=== PATIENT | male | born 1975 | race Caucasian/White ===

== ENCOUNTER 2016-04-22 12:08 | Inpatient (IN) | payer MEDICARE, MEDICAID ==
[2016-04-22] MEDS ORDERED: methylPREDNISolone Sod Succ 1,000 MG in Sodium Chloride 0.9% 100 ML IV ONE (12:44)
[2016-04-22 12:56] LABS: BASOPHILS PERCENT AUTO 0.5 % (0.2-1.2); EOSINOPHILS PERCENT AUTO 1.2 % (0.0-4.0); HEMATOCRIT 44.3 % (40.0-52.0); HEMOGLOBIN 14.7 g/dL (14.0-18.0); LYMPHOCYTES PERCENT AUTO 9.6 % (25.0-50.0); MEAN CORPUSCULAR HEMOGLOBIN 30.4 pg (26.0-32.0); MEAN CORPUSCULAR HGB CONC 33.2 g/dL (32.0-36.0); MEAN CORPUSCULAR VOLUME 91.7 fL (78.0-93.0); MONOCYTES PERCENT AUTO 4.7 % (2.0-11.0); RDW CV 13.9 % (10.0-15.0); RED BLOOD CELL COUNT 4.83 x10^6/uL (4.5-6.0)
[2016-04-22] MEDS: Sodium Chloride 0.9% 10 ML Syringe FLUSH PRN ×2 (13:01→20:11)
[2016-04-22 13:12] LABS: INR 0.9 (2.0-3.5); PROTHROMBIN TIME 10.1 SEC (10.0-12.8)
[2016-04-22 13:28] LABS: A/G RATIO 1.23; ALBUMIN 3.7 g/dL (3.4-5.0); ALKALINE PHOSPHATASE 60 U/L (46-116); BILIRUBIN TOTAL 0.3 mg/dL (0.2-1.0); CALCIUM 8.8 mg/dL (8.5-10.1); CHLORIDE,CL 105 mmol/L (98-107); CORRECTED CALCIUM 9.04 mg/dL (8.5-10.1); CREATININE 0.9 mg/dL (0.70-1.30); ESTIMATED GFR > 60; GLUCOSE RANDOM 89 mg/dL (74-106)
[2016-04-22 13:30] LABS: CKMB 1.4 ng/mL (0.0-3.6)
[2016-04-22 13:31] LABS: C-REACTIVE PROTEIN < 0.2 mg/dL (<=0.9)
[2016-04-22 14:17] LABS: APPEARANCE,URINE SLIGHTLY CLOUDY (CLEAR); BILIRUBIN,URINE NEGATIVE (NEGATIVE); GLUCOSE,URINE NEGATIVE (NEGATIVE); KETONES,URINE TRACE mg/dL (NEGATIVE); LEUKOCYTE ESTERASE,URINE NEGATIVE (NEGATIVE); NITRITE,URINE NEGATIVE (NEGATIVE); OCCULT BLOOD,URINE NEGATIVE (NEGATIVE); PH,URINE 7.5 (5.0-8.0); PROTEIN,URINE NEGATIVE (NEGATIVE); UROBILINOGEN,URINE 0.2 EU/dL (0.2)
[2016-04-22 14:25] LABS: BACTERIA,URINE NOT SEEN /HPF (NEGATIVE); MUCUS,URINE NOT SEEN /LPF (NEGATIVE); RBC,URINE NOT SEEN /HPF (NOT SEEN); WBC,URINE NOT SEEN /HPF (NOT SEEN)
[2016-04-22] MEDS ORDERED: Acetaminophen 325 MG Tab PO PRN (15:53)
[2016-04-22] MEDS ORDERED: Ibuprofen 200 MG Tab PO PRN (15:53)
--- NOTE | 2016-04-22 16:04 | PCM.HP ---
H&P History of Present Illness - General Date of Service: 04/22/16 Admit Problem/Dx: Admission Diagnosis/Problem Admission Diagnosis/Problem Multiple sclerosis Source of Information: Patient History Limitations: Reports: No limitations - History of Present Illness Initial Comments - Free Text/Narative: Mr. Epps is a 41 yo male with PMH of MS complicated by neurogenic bladder who was brought to the ED by EMS after he was unable to get up off the toilet on his own. I had actually seen him this morning in clinic and started him on Augmentin for sinusitis. He has had >10 days of rhinorrhea and congestion. Then this morning, he started to have some right sided weakness which has been how his MS flares are presenting lately. He also felt unwell and checked his temperature, finding that to be 101.1. He has had no chest pain or shortness of breath. At that time, he felt comfortable returning home. However, after returning home from the clinic, it took him 30 minutes to get up off the toilet after going to the bathroom. As a result, he called EMS and they brought him to the ED. He received a dose of solu-medrol down there and is doing much better in terms of his weakness at this time. He still has the frontal sinus headache and some mild neck pain. He has some shortness of breath from working so hard to get off the toilet but this is now resolved. He has had no recurrence of fever. Onset of Symptoms: Reports: today Duration of Symptoms: Reports: Improving Location: Reports: upper extremity, right Severity: moderate Improves with: Reports: Other (solumedrol given in the ED) Worsens with: Reports: None Associated Symptoms: Reports: fever/chills, malaise - Related Data Allergies/Adverse Reactions: Allergies Allergy/AdvReac Type Severity Reaction Status Date / Time ceftriaxone sodium Allergy Rash Verified 04/22/16 12:19 [From Rocephin] Home Medications: Home Meds Naproxen Sodium [Aleve] 220 mg PO BID 03/16/14 [History] Ascorbate Calcium [Vitamin C] 500 mg PO DAILY 07/16/14 [History] Cholecalciferol (Vitamin D3) [Vitamin D3] 3,000 unit PO DAILY 07/16/14 [History] Cyanocobalamin (Vitamin B12) [Vitamin B12] 1,000 mcg PO DAILY 07/16/14 [History] Sennosides/Docusate Sodium [Stool Softener Tablet] 1 each PO BID 07/16/14 [ History] Fingolimod HCl [Gilenya] 1 tab PO Q2D 11/24/15 [History] Acetaminophen 325 mg PO BID 04/22/16 [History] Amoxicillin/Clavulanate K [Augmentin 875 MG/125 MG] 1 tab BID 04/22/16 [History] Docusate Sodium [Colace] 200 mg PO DAILY 04/22/16 [History] Multivitamin [Multivitamins] 1 each PO DAILY 04/22/16 [History] Oxybutynin Chloride [Ditropan Xl] 15 mg PO DAILY 04/22/16 [History] Vitamin B Complex [B Complex] 1 tab PO DAILY 04/22/16 [History] Past Medical History - Past Health History Medical/Surgical History: Denies Medical/Surgical History HEENT History: Reports: None Cardiovascular History: Reports: None Respiratory History: Reports: None Gastrointestinal History: Reports: None Genitourinary History: Reports: Retention, urinary, Urinary incontinence Musculoskeletal History: Reports: None Neurological History: Reports: MS Psychiatric History: Reports: None Endocrine/Metabolic History: Reports: None Hematologic History: Reports: None Immunologic History: Reports: None Oncologic (Cancer) History: Reports: None Dermatologic History: Reports: None - Infectious Disease History Infectious Disease History: Reports: None - Past Surgical History Neurological Surgical History: Reports: None Social & Family History - Family History Family Medical History: Noncontributory - Tobacco Use Smoking Status *Q: Never Smoker Second Hand Smoke Exposure: No - Caffeine Use Caffeine Use: Reports: None - Alcohol Use Alcohol Use History: No Days Per Week of Alcohol Use: 0 - Recreational Drug Use Recreational Drug Use: No - Living Situation & Occupation Living situation: Reports: alone (Lives alone. Has a girlfriend who lives in [place]. 2 sisters also live relatively close. He is normally independent for ADLs but has assistance with getting groceries, etc.) Occupation: disabled H&P Review of Systems - Review of Systems: Review Of Systems: See Below General: Reports: fever, malaise, fatigue HEENT: Reports: rhinitis, sinus congestion. Denies: sore throat Pulmonary: Reports: no symptoms Cardiovascular: Reports: no symptoms Gastrointestinal: Reports: No symptoms Genitourinary: Reports: no symptoms Musculoskeletal: Reports: no symptoms Skin: Reports: no symptoms Psychiatric: Reports: no symptoms Neurological: Reports: headache, pre-existing deficit, weakness. Denies: trouble speaking Hematologic/Lymphatic: Reports: no symptoms Exam - Exam Exam: See Below - Vital Signs Vital Signs: Last Vital Signs Temp 36.6 C 04/22/16 15:13 Pulse 76 04/22/16 15:13 Resp 16 04/22/16 15:13 BP 156/99 H 04/22/16 15:13 Pulse Ox 100 04/22/16 15:13 Weight: 83.915 kg - Exam General: alert, oriented, cooperative HEENT: Conjunctiva clear, EOMI, Mucosa moist & pink, Pupils equal, Pupils reactive, TMs clear Neck: supple, trachea midline. No: lymphadenopathy, thyromegaly Lungs: Clear to auscultation, Normal respiratory effort Cardiovascular: regular rate, regular rhythm, normal S1, normal S2. No: systolic murmur, diastolic murmur Abdomen: normal bowel sounds, soft, organomegaly. No: distention, tenderness Extremities: normal inspection, normal pulses, edema (trace to above the ankle bilaterally) Skin: warm, dry, intact Neurological: other (patient is now able to move right arm and left arm and leg without issue; has chronic inability to move right leg) Neuro Extensive - Motor, Sensory, Reflexes: CN II-XII intact - Patient Data Result Diagrams: 04/22/16 12:47 04/22/16 12:47 *Q Meaningful Use (ADM) - VTE *Q VTE Criteria *Q: - Stroke *Q Stroke Criteria *Q: - AMI *Q AMI Criteria *Q: - Problem List (1) Multiple sclerosis exacerbation SNOMED Code(s): 197034498 ICD Code: G35 - MULTIPLE SCLEROSIS Status: Acute Priority: Medium Current Visit: No Onset Date: 05/16/15 Problem Details: - Unclear whether this is true MS exacerbation vs. pseudoexacerbation. In clinic felt to be the latter but his drastic improvement with solu-medrol would suggest the former. Unlikely other intracranial cause with improvement with steroids and lack of history of falls. No mass seen on MRI 02/2016. - Will treat with another 2 days of solu-medrol 500 mg IV. - If his symptoms are back to baseline, he likely will not require a taper of steroids upon homegoing. (2) Sinusitis, acute frontal SNOMED Code(s): 55785181 ICD Code: J01.10 - ACUTE FRONTAL SINUSITIS, UNSPECIFIED Status: Acute Current Visit: Yes Problem Details: - Likely bacterial at this point given symptoms present for >10 days with worsening and fever only over the past 24 hours. - Patient does not require IV antibiotics for this; reason for admission is MS exacerbation, not sinusitis. - Will continue Augmentin BID. Qualifiers: Recurrence: not specified as recurrent Qualified Code(s): J01.10 - Acute frontal sinusitis, unspecified (3) Neurogenic bladder SNOMED Code(s): 729563746 ICD Code: N31.9 - NEUROMUSCULAR DYSFUNCTION OF BLADDER, UNSPECIFIED Status : Chronic Current Visit: Yes Problem Details: - Patient has been on oxybutynin without much benefit. - Will continue for now. Problem List Initiated/Reviewed/Updated: Yes Orders Last 24hrs: Active Orders 24 hr Category Date Time Status Patient Status [ADT] Routine ADT 04/22/16 15:53 Ordered Notify Provider Vital Signs [RC] ASDIRECTED Care 04/22/16 15:53 Ordered Oxygen Therapy [RC] PRN Care 04/22/16 15:53 Ordered Up With Assistance [RC] ASDIRECTED Care 04/22/16 15:53 Ordered VTE/DVT Education [RC] PER UNIT ROUTINE Care 04/22/16 15:53 Ordered Vital Signs [RC] Q4H Care 04/22/16 15:53 Ordered Regular Diet [DIET] Diet 04/22/16 Dinner Ordered Acetaminophen [Tylenol] Med 04/22/16 15:53 Ordered 650 mg PO Q4H PRN Amoxicillin/Clavulanate K [Augmentin 875 MG/125 MG] Med 04/22/16 20:00 Ordered 1 tab PO BID Enoxaparin [Lovenox] Med 04/23/16 08:00 Ordered 40 mg SUBCUT DAILY Ibuprofen [Motrin] Med 04/22/16 15:53 Ordered 400 mg PO Q6H PRN methylPREDNISolone Sod Succ [Solu-MEDROL] 500 mg Med 04/23/16 08:00 Ordered Sodium Chloride 0.9% [Normal Saline] 100 ml IV DAILY Resuscitation Status Routine Resus Stat 04/22/16 15:53 Ordered Medication Orders Acetaminophen (Tylenol) 650 mg PO Q4H PRN PRN Reason: Pain (Mild 1-3)/fever Amoxicillin/Clavulanate Potassium (Augmentin 875 Mg/125 Mg) 1 tab PO BID ORAL Enoxaparin Sodium (Lovenox) 40 mg SUBCUT DAILY ORAL Ibuprofen (Motrin) 400 mg PO Q6H PRN PRN Reason: Pain (mild 1-3) Sodium Chloride (Saline Flush) 10 ml FLUSH ASDIRECTED PRN PRN Reason: Keep Vein Open Last Admin: 04/22/16 13:01 Dose: 10 ml Assessment/Plan Comment:: 41 yo male admitted for MS exacerbation vs. pseudoexacerbation secondary to acute bacterial sinusitis. Please see details under problems above. He is improved after a single dose of solu-medrol in the ED. Will do 2 further doses of solu-medrol 04/23 and 04/24. He will get oral antibiotics for his sinusitis. If his weakness and ability to care for himself improve, I anticipate he will be dismissed on 04/24 after that dose of solu-medrol. Enoxaparin for VTE prophylaxis. Patient is full code.
[2016-04-22] MEDS: Amoxicillin/Clavulanate K 875-125 MG Tab PO SCH (20:09)
[2016-04-23] MEDS: Amoxicillin/Clavulanate K 875-125 MG Tab PO SCH ×2 (07:25→20:02)
[2016-04-23] MEDS: Enoxaparin 40 MG/0.4 ML Syringe SUBCUT SCH (07:25)
--- NOTE | 2016-04-23 12:47 | PN ---
Progress Note for WILLIAM NORWOOD Date: 04/23/2016 Room #: VM.201 SUBJECTIVE: The patient is a 41-year-old white male admitted yesterday afternoon by Dr. Ember Mcqueen. He was diagnosed with a sinus infection and was started on Augmentin last night. But the main problem was that he had an acute exacerbation of his MS with increased right-sided weakness that make it difficult for him for transfer maneuver. He says that a lot of times, when he got an acute infection or got an exacerbation of his MS. He has been treated with IV Solu-Medrol which has improved his symptoms, but not cutting him back to baseline yet. His right-sided weakness has improved. His sinus symptoms are also improved. Nurses report that he had an assisted fall when he slipped out of his left, yesterday evening. OBJECTIVE: GENERAL: He is alert. VITAL SIGNS: Temperature is 100 degrees. This morning he has been afebrile. His vital signs are otherwise stable. HEART: Regular rate and rhythm. LUNGS: Clear. His sinuses are nontender. He has some mild right upper extremity weakness and some more marked right lower extremity weakness. LABORATORY DATA: Lab work from yesterday is reviewed and unremarkable. ASSESSMENT: 1. Acute exacerbation of multiple sclerosis. 2. Acute bacterial sinusitis. PLAN: The patient will continue with his doses of IV Solu-Medrol that was currently ordered, continue with oral antibiotics. If he is able to care for himself, by tomorrow afternoon he could be discharged home. Otherwise, he will need to stay until Monday and have some physical therapy. FM: 04/23/2016 11:25:35 MODL: 04/23/2016 12:41:26 /[id number]
[2016-04-23] MEDS: Sodium Chloride 0.9% 10 ML Syringe FLUSH PRN (20:05)
[2016-04-24] MEDS: Amoxicillin/Clavulanate K 875-125 MG Tab PO SCH (07:11)
[2016-04-24] MEDS: Enoxaparin 40 MG/0.4 ML Syringe SUBCUT SCH (07:11)
[2016-04-24] MEDS ORDERED: Oxybutynin 5 MG Tab.ER PO SCH (08:00)
[2016-04-24] MEDS: OXYBUTYNIN CHLORIDE 15 MG PO SCH (08:43)
[2016-04-24 09:31] VITALS: BP 147/86
--- NOTE | 2016-04-24 22:41 | DISCH ---
FINAL DIAGNOSES: 1. Multiple sclerosis acute exacerbation-improved to resolved. 2. Acute frontal sinusitis-improved. HISTORY: A 41-year-old white male with history of multiple sclerosis with neurogenic bladder, came to emergency room with the weakness. He had been seen in the morning in the clinic and was started on Augmentin for his sinusitis. He was having some right-sided weakness. He stated that this is how his MS flares when he has an illness. There are no other symptoms. He was admitted for IV steroid therapy. In the hospital, he was treated with oral Augmentin for his sinusitis and given Solu-Medrol 500 mg IV on 3 successive days. With this treatment, his exacerbation pretty much resolved, he felt his strength was back to normal. He does have some baseline right-sided weakness, but he felt much better, was able to transfer and felt he could take care of himself in home as he normally does. His sinus symptoms are also improved and he is tolerating a regular diet. LABORATORY DATA: His white count is 8.9, his hemoglobin is 14.7. Electrolytes are normal, creatinine 0.9, lactic acid 0.5. LFTs were normal. CK was 56. CRP was less than 0.2. DISPOSITION: The patient is discharged home. He will have family and girlfriend with him visiting later tomorrow. He has all his assistive devices at home with him. He will follow up with Dr. Ember Mcqueen in 7 to 10 days to monitor his condition, or sooner if problems or concerns. DISCHARGE MEDICATIONS: Augmentin 875 mg b.i.d. to complete a 10-day course, and then his usual home medications are vitamin B12, Ditropan XL 50 mg daily, Aleve b.i.d., stool softeners daily as directed, vitamin B complex, vitamin D3, vitamin C and multivitamin and Tylenol b.i.d. FM: 04/24/2016 12:50:34 MODL: 04/24/2016 22:30:53 /[id number]
--- NOTE | 2016-04-28 18:24 | ER ---
Date of Service: 04/22/2016 SUBJECTIVE: The patient presents to the emergency room with complaints of right- sided weakness and generalized global weakness. The patient has a history of multiple sclerosis and states that this sensation is somewhat what he has experienced when he has had MS flare ups in the past. The patient states he has not been experiencing any fever or chills. Denies any recent illness. He states that he is also experiencing some mild shortness of breath which he has not experienced with previous MS flare ups. PAST MEDICAL HISTORY: Multiple sclerosis. MEDICATIONS: 1. Naproxen sodium. 2. Vitamin C. 3. Vitamin D3. 4. Vitamin B12. 5. Senna Plus. 6. Gilenya. 7. Acetaminophen. 8. Colace. 9. Multivitamin. 10.Ditropan. 11.Vitamin B complex. ALLERGIES: To ceftriaxone. REVIEW OF SYSTEMS: General: Denies any fever or chills. HEENT: No sore throat, rhinorrhea, or congestion. Respiratory: Positive for mild shortness of breath. Cardiac: Denies any substernal chest pain. No jaw, arm, neck, or back pain. Gastrointestinal: No nausea, vomiting, or diarrhea. No melena, hematochezia, or hematemesis. : Denies any dysuria. Musculoskeletal: Complains of global muscle weakness. Neurologic: Complains primarily more of right-sided weakness. He is not experiencing any headache. No difficulties with speech. His ambulation is limited on a chronic basis but worse over the past. LABORATORY DATA: WBCs 8.9, hemoglobin is 14.7, platelets are 259. Coags: PT is 10.1, INR is 0.9. Chemistry: Sodium is 143, potassium is 3.9, chloride is 105, bicarb is 30, BUN is 21, creatinine is 0.9. GFR is greater than 60. Glucose is 89, lactic acid is 0.5, calcium is 8.8, corrected calcium is 9.04, total bilirubin is 0.3, AST is 15, ALT is 14, alkaline phosphatase is 60, CK is 56. Urinalysis reveals specific gravity of 1.020; negative for glucose, occult blood, nitrites, bilirubin; negative leukocyte esterase and wbc's. EMERGENCY ROOM COURSE: IV access was established. He was given 1 g of Solu- Medrol IV. He did report shortly after the infusion improvement in his symptoms. He remained stable under my care in the emergency room. ASSESSMENT: Exacerbation of multiple sclerosis. PLAN: The patient will be admitted acutely. I did speak with Ember Mcqueen who is the patient's primary care provider. The patient is a code level 1. MWK: 04/28/2016 13:47:55 MODL: 04/28/2016 18:16:17 /[id number]
== END 2016-04-24 14:15 | disposition home or self-care (01) | DRG 60 ==
LOC: VM.ED 12:08 → VM.MS 14:46
PROVIDERS: ADMIT Family Medicine; ATTEND Family Medicine
DX: G35 Multiple sclerosis (principal); R06.02 Shortness of breath; R53.1 Weakness; J01.10 Acute frontal sinusitis, unspecified; N31.9 Neuromuscular dysfunction of bladder, unspecified; R33.9 Retention of urine, unspecified
CPT/HCPCS: 36415; 71010; 80053; 81001; 82550; 82553; 83605; 84443; 85025; 85610; 86140; 87040 ×2; 96365; 99285; J2930; J7050 ×2; A9270-GY; J1650

== ENCOUNTER 2016-05-31 07:09 | Inpatient (IN) | payer MEDICARE, MEDICAID ==
[2016-05-31] MEDS ORDERED: Sodium Chloride 0.9% 10 ML Syringe FLUSH PRN (07:17)
[2016-05-31] MEDS ORDERED: Sodium Chloride 0.9% 1,000 ML IV ONE (07:32)
[2016-05-31] MEDS ORDERED: methylPREDNISolone Sod Succ 1,000 MG in Sodium Chloride 0.9% 100 ML IV ONE (07:33)
[2016-05-31 08:40] LABS: SODIUM,NA 144 mmol/L (136-145)
[2016-05-31 08:41] LABS: CHLORIDE,CL 108 mmol/L (98-107)
--- NOTE | 2016-05-31 10:07 | PCM.HP ---
H&P History of Present Illness - General Date of Service: 05/31/16 Admit Problem/Dx: Admission Diagnosis/Problem Admission Diagnosis/Problem Weakness Source of Information: Patient History Limitations: Reports: No limitations - History of Present Illness Initial Comments - Free Text/Narative: Mr. Epps is a 41 yo male with PMH of MS and neurogenic bladder who presented to the ED today after he sustained a mechanical fall. He has gone 5 weeks between his solumedrol infusions this time and was quite concerned about going this length of time. He notes that for the past week, he has been increasingly weak and could feel that he was due for the infusions again. When he gets into bed, he typically kicks his shoes to the side so they are not in the way if he gets up at night. He forgot to do that last night so when he woke up to go to the restroom at 2 am, he tripped on his shoes and fell. He was unable to get himself up and laid on the floor until 6 am until he was finally able to reach his phone and call for help. He denies any pain at this time. He is feeling ok from a neurologic standpoint but does admit that he is weaker than usual and has no one that can help him at home at this time since his girlfriend and sister are both quite ill. ROS is negative as below. - Related Data Allergies/Adverse Reactions: Allergies Allergy/AdvReac Type Severity Reaction Status Date / Time ceftriaxone sodium Allergy Rash Verified 05/31/16 10:16 [From Rocephin] Home Medications: Home Meds Acetaminophen 325 mg PO BID PRN 04/22/16 [History] Docusate Sodium [Colace] 100 mg PO DAILY 04/22/16 [History] Vitamin B Complex [B Complex] 1 tab PO DAILY 04/22/16 [History] Cholecalciferol (Vitamin D3) [Vitamin D3] 2,000 unit PO DAILY 05/31/16 [History] Fluticasone Propionate [Flonase] 50 mcg NASBOTH DAILY 05/31/16 [History] Ibuprofen [Motrin] 200 mg PO DAILY PRN 05/31/16 [History] Multivits,Ca,Minerals/Iron/FA [Thera-M] 1 tab PO DAILY 05/31/16 [History] Past Medical History - Past Health History Medical/Surgical History: Denies Medical/Surgical History HEENT History: Reports: None Cardiovascular History: Reports: None Respiratory History: Reports: None Gastrointestinal History: Reports: None Genitourinary History: Reports: Neurogenic bladder Musculoskeletal History: Reports: None Other Musculoskeletal History: MS dx 2000 with recent exacerbation Neurological History: Reports: MS Psychiatric History: Reports: None Endocrine/Metabolic History: Reports: None Hematologic History: Reports: None Immunologic History: Reports: None Oncologic (Cancer) History: Reports: None Dermatologic History: Reports: None - Infectious Disease History Infectious Disease History: Reports: None - Past Surgical History Neurological Surgical History: Reports: None Social & Family History - Family History HEENT: Reports: Glaucoma Cardiac: Reports: MD : Reports: Dialysis Endocrine/Metabolic: Reports: Diabetes, type II - Tobacco Use Smoking Status *Q: Never Smoker Second Hand Smoke Exposure: No - Caffeine Use Caffeine Use: Reports: None - Alcohol Use Alcohol Use History: No Days Per Week of Alcohol Use: 0 Alcohol Use in Last Twelve Months: No - Recreational Drug Use Recreational Drug Use: No - Living Situation & Occupation Living situation: Reports: alone (Lives alone. Has a girlfriend who lives in [place]. 2 sisters also live relatively close. He is normally independent for ADLs but has assistance with getting groceries, etc.) Occupation: disabled H&P Review of Systems - Review of Systems: Review Of Systems: See Below General: Reports: no symptoms HEENT: Reports: no symptoms Pulmonary: Reports: no symptoms Cardiovascular: Reports: no symptoms Gastrointestinal: Reports: No symptoms Genitourinary: Reports: no symptoms Musculoskeletal: Reports: no symptoms Skin: Reports: no symptoms Psychiatric: Reports: no symptoms Neurological: Reports: pre-existing deficit, weakness Hematologic/Lymphatic: Reports: no symptoms Exam - Exam Exam: See Below - Vital Signs Vital Signs: Last Vital Signs Temp 36.4 C 05/31/16 07:09 Pulse 77 05/31/16 07:09 Resp 16 05/31/16 07:09 BP 122/72 05/31/16 07:09 Pulse Ox Weight: 104.326 kg - Exam General: alert, oriented, cooperative. No: mild distress, moderate distress, severe distress HEENT: Conjunctiva clear, Hearing intact, Mucosa moist & pink, Posterior pharynx clear, Pupils equal, Pupils reactive Neck: supple, trachea midline. No: lymphadenopathy, thyromegaly Lungs: Clear to auscultation, Normal respiratory effort Cardiovascular: regular rate, regular rhythm, normal S1, normal S2. No: systolic murmur, diastolic murmur Abdomen: normal bowel sounds, soft. No: organomegaly, tenderness Extremities: normal inspection, normal pulses. No: edema Skin: warm, dry, intact Neurological: other (no movement of right leg (baseline for him); otherwise normal range of motion for upper extremities and left leg) - Patient Data Result Diagrams: 05/31/16 07:30 05/31/16 07:30 *Q Meaningful Use (ADM) - VTE *Q VTE Criteria *Q: VTE Anticoagulation Contraindications: Med/tx not indicated/need - Stroke *Q Stroke Criteria *Q: - AMI *Q AMI Criteria *Q: - Problem List (1) Fall SNOMED Code(s): 0832905, 481184465 ICD Code: W19.XXXA - UNSPECIFIED FALL, INITIAL ENCOUNTER Status: Acute Current Visit: Yes Problem Details: - Mechanical fall. - No injuries. - Does not require any medications for this. - CK normal on admission. Low risk of rhabdomyolysis due to timeline; therefore , will hold off on additional IV fluids but will recheck CK tomorrow morning. Qualifiers: Encounter type: initial encounter Qualified Code(s): W19.XXXA - Unspecified fall, initial encounter (2) Multiple sclerosis SNOMED Code(s): 61621796 ICD Code: G35 - MULTIPLE SCLEROSIS Status: Acute Current Visit: No Problem Details: - Not likely true MS flare but lapse in time between treatments. - Will do 1,000 mg solu-medrol again tomorrow (patient received 1 dose in the ED ). If he is feeling stronger, will consider d/c tomorrow with last dose as an oupatient the subsequent day. - No need for repeat MRI based on stable neuro exam overall. - No evidence of infection requiring treatment. (3) Neurogenic bladder SNOMED Code(s): 403162681 ICD Code: N31.9 - NEUROMUSCULAR DYSFUNCTION OF BLADDER, UNSPECIFIED Status : Chronic Current Visit: No Problem Details: - Patient has been on oxybutynin without much benefit. - Not currently taking this or anything else for bladder symptoms. Problem List Initiated/Reviewed/Updated: Yes Orders Last 24hrs: Active Orders 24 hr Category Date Time Status Notify Provider Vital Signs [RC] ASDIRECTED Care 05/31/16 09:53 Ordered Oxygen Therapy [RC] PRN Care 05/31/16 09:53 Ordered Up With Assistance [RC] ASDIRECTED Care 05/31/16 09:53 Ordered VTE/DVT Education [RC] PER UNIT ROUTINE Care 05/31/16 09:53 Ordered Vital Signs [RC] Q4H Care 05/31/16 09:53 Ordered Regular Diet [DIET] Diet 05/31/16 Lunch Ordered CREATINE KINASE,CK [CHEM] Routine Lab 06/01/16 05:11 Ordered methylPREDNISolone Sod Succ [Solu-MEDROL] 1,000 mg Med 06/01/16 08:00 Ordered Sodium Chloride 0.9% [Normal Saline] 100 ml IV ONETIME Anticoagulation Contraindications VTE [AST] Per Unit Oth 05/31/16 09:53 Ordered Routine Resuscitation Status Routine Resus Stat 05/31/16 09:53 Ordered Medication Orders Methylprednisolone Sodium Succinate 1,000 mg/ Sodium Chloride 108 mls @ 200 mls /hr IV ONETIME ONE Stop: 06/01/16 08:32 Sodium Chloride (Saline Flush) 10 ml FLUSH ASDIRECTED PRN PRN Reason: Keep Vein Open Assessment/Plan Comment:: 41 yo male admitted with generalized weakness related to MS after he sustained a mechanical fall this am. No need for MRI; no evidence of infection. Will treat with solu-medrol 1,000 mg daily x 3 days (received first dose in the ED). Depending on clinic course, may do the 3rd dose outpatient. Patient admitted under observation as I anticipate he will be dismissed tomorrow. No VTE prophylaxis given he is at his mobility baseline and will likely be dismissed tomorrow. He is full code.
[2016-05-31] MEDS ORDERED: Acetaminophen 325 MG Tab PO PRN (18:21)
--- NOTE | 2016-05-31 23:45 | ER ---
Date of Service: 05/31/2016 SUBJECTIVE: Royal presents to the emergency room with complaints of global weakness. The patient states that he tripped over a shoe while attempting to get into the bed last night at approximately 2 o'clock in the morning and was unable to get to his phone to call for help. The patient has a history of multiple sclerosis and receives IV Solu-Medrol when he has an exacerbation. He was actually scheduled to have an infusion of Solu-Medrol today, but subsequently fell and called 911. The last time he had an MS exacerbation was on 04/22/2016. He was admitted for approximately 2 days and received a total of a g of Solu-Medrol 3 times during his stay. He states that he has not been experiencing any fever or chills. He is not experiencing any complaints other than that of profound global weakness. PAST MEDICAL HISTORY: 1. Multiple sclerosis. 2. Neurogenic bladder. MEDICATIONS: 1. Flonase 50 mcg both nares daily. 2. Multivitamin and minerals 1 tablets daily. 3. Ibuprofen 200 mg p.o. daily p.r.n. 4. Vitamin D3 2000 units p.o. daily. 5. Vitamin B complex 1 tablet p.o. daily. 6. Colace 100 mg p.o. daily. 7. Acetaminophen 325 mg p.o. b.i.d. ALLERGIES: Ceftriaxone. REVIEW OF SYSTEMS: General: No fever or chills. HEENT: No sore throat, rhinorrhea, or congestion. Respiratory: No shortness of breath. Cardiac: Denies any substernal chest pain. No jaw, arm, neck, or back pain. Gastrointestinal: No nausea, vomiting, or diarrhea. No melena, hematochezia, or hematemesis. Genitourinary: Denies any dysuria. States that his neurogenic bladder symptoms have stabilized. Endocrine: Denies any heat or cold intolerance. No polyuria, polydipsia, or polyphagia. Musculoskeletal: Again, does complain of profound weakness to both his upper and lower extremities. Neurologic: Please see history of present illness. He denies any paresthesia. He states that his weakness is more pronounced on the right than the left. He denies any visual disturbances. Denies any headache. PHYSICAL EXAMINATION: General: This is a 41-year-old male patient, who is in no acute distress. Vital signs: Blood pressure is 130/83, pulse rate is 73, temperature is 37.1, respiratory rate 18, O2 saturations 100%. Skin: Warm, pink, and dry. HEENT: Head is normocephalic, atraumatic. Eyes, PERRLA. Extraocular movements are intact. Mouth, oral mucosa is moist. No erythema or exudate noted to the hypopharynx. Neck: Supple without masses. There is no lymphadenopathy. Lungs: Clear to auscultation. Heart: Regular rate and rhythm. Abdomen: Soft, nontender. There is no hepatosplenomegaly or masses noted. Extremities: Without edema. He has approximately 2/5 strength in both his upper and lower extremities. Neurologic: He is awake, alert, and answers all questions appropriately. His speech is fluent. His gait is within normal limits. He has no pronator drift. His facial features are symmetrical. Cranial nerves 2 through 12 are intact. Musculoskeletal: He does have a small pressure ulcer to his coccyx with some surrounding erythema. No significant discharge noted. LABORATORY DATA: WBCs 10.8, hemoglobin is 14.3, platelets are 282. Chemistry; sodium is 144, potassium is 4.0, chloride is 108, bicarb is 27, BUN is 21, creatinine is 0.8, creatinine clearance is 132, GFR is greater than 60, glucose is 111, lactic acid is 0.6, calcium is 8.7, corrected calcium is 9.02, total bilirubin is 0.3. AST is 17, ALT is 20, alkaline phosphatase is 61. CK is 77. Total protein is 6.4, albumin is 3.6. TSH is 2.413. Urinalysis was obtained. Specific gravity is 1.020. Negative for leukocytes, nitrites, bilirubin, occult blood, ketones, glucose or protein. EMERGENCY ROOM COURSE: An IV access was established. The patient was started on normal saline at 500 mL an hour for a total of 1 L. He was given Solu-Medrol 1000 mg IV. He did report improvement in his profound weakness and remained stable in my care in the emergency room. ASSESSMENT: Multiple sclerosis exacerbation. PLAN: The patient will be admitted to our facility acutely. I did speak with Dr. Ember Mcqueen, who is the patient's primary care provider. She will admit the patient acutely. MWK: 05/31/2016 14:15:07 MODL: 05/31/2016 23:33:49 /[id number]
[2016-06-01 05:40] VITALS: BP 119/88
--- NOTE | 2016-06-01 08:32 | PCM.DCSUM1 ---
Discharge Summary - Hospital Course HPI Initial Comments: Mr. Epps is a 41 yo male with PMH of MS who presented to the ED for evaluation of 1 week of progressive weakness resulting in a fall that morning from which he was unable to get up on his own. Due to scheduling, the patient was about 1 week behind on getting his solu-medrol infusion. Labs and chest x- ray in the ED were unremarkable. He was admitted for solu-medrol infusions with hopes this would improve his mobility to make it safe for him to return home independently. - Discharge Data Discharge Date: 06/01/16 Discharge Disposition: Home, Self-Care 01 Condition: Good - Discharge Diagnosis/Problem(s) (1) Fall SNOMED Code(s): 2714544, 235456409 ICD Code: W19.XXXA - UNSPECIFIED FALL, INITIAL ENCOUNTER Status: Acute Current Visit: Yes Problem Details: The fall was a mechanical fall, and he sustained no injuries. He has not required any medications for pain. CK was normal on admission and normal again this morning. Qualifiers: Encounter type: initial encounter Qualified Code(s): W19.XXXA - Unspecified fall, initial encounter (2) Multiple sclerosis SNOMED Code(s): 73345358 ICD Code: G35 - MULTIPLE SCLEROSIS Status: Acute Current Visit: No Problem Details: Symptoms not likely true MS flare but lapse in time between treatments. He got a dose of solu-medrol in the ED and will get another today. He feels comfortable with dismissing home today and his cousin will bring some clothes and his wheelchair in for him. Will do voiding trial before dismissal. (3) Neurogenic bladder SNOMED Code(s): 323536700 ICD Code: N31.9 - NEUROMUSCULAR DYSFUNCTION OF BLADDER, UNSPECIFIED Status : Chronic Current Visit: No Problem Details: Patient has been on oxybutynin in the past without much benefit. Not currently taking this or anything else for bladder symptoms. A catheter was placed in the ED; will remove this and do a voiding trial before dismissal today. - Patient Summary/Data Operative Procedure(s) Performed: none Complications: none Consults: none Labs Pending at D/C: none Recommended Follow-up Testing/Procedures: none Planned Operative Procedure(s) after DC: none Hospital Course: Patient was treated with a second dose of solu-medrol on 06/01. He had improved mobility after only 2 doses and felt comfortable returning home. He will be dismissed today and will return tomorrow as an outpatient for the third solu- medrol infusion. - Patient Instructions Diet: Usual Diet as Tolerated Activity: As Tolerated Notify Provider of: Fever, Increased Pain, Swelling and Redness, Nausea and/or Vomiting - Discharge Plan Home Medications: Home Meds Acetaminophen 325 mg PO BID PRN 04/22/16 [History] Docusate Sodium [Colace] 100 mg PO DAILY 04/22/16 [History] Vitamin B Complex [B Complex] 1 tab PO DAILY 04/22/16 [History] Cholecalciferol (Vitamin D3) [Vitamin D3] 2,000 unit PO DAILY 05/31/16 [History] Fluticasone Propionate [Flonase] 50 mcg NASBOTH DAILY 05/31/16 [History] Ibuprofen [Motrin] 200 mg PO DAILY PRN 05/31/16 [History] Multivits,Ca,Minerals/Iron/FA [Thera-M] 1 tab PO DAILY 05/31/16 [History] Forms: ED Department Discharge Referrals: Ember Mcqueen MD [Primary Care Provider] - - Discharge Summary/Plan Comment DC Time >30 min.: No - General Info Date of Service: 06/01/16 Subjective Update: Doing well this morning. Interested in dismissal home. ROS negative as below. - Review of Systems General: Reports: no symptoms HEENT: Reports: no symptoms Pulmonary: Reports: no symptoms Cardiovascular: Reports: no symptoms Gastrointestinal: Reports: No symptoms Genitourinary: Reports: no symptoms Musculoskeletal: Reports: no symptoms Skin: Reports: no symptoms - Patient Data Vitals - Most Recent: Last Vital Signs Temp 36.8 C 06/01/16 05:40 Pulse 85 06/01/16 05:40 Resp 16 06/01/16 05:40 BP 119/88 06/01/16 05:40 Pulse Ox 94 L 06/01/16 05:40 Weight - Most Recent: 104.326 kg I&O - Last 24 hours: Intake & Output 05/31/16 06/01/16 06/01/16 22:59 06:59 14:59 Intake Total 590 400 Output Total 700 600 Balance -110 -200 Lab Results - Last 24 hrs: Laboratory Results - last 24 hr 06/01/16 Range/Units 06:14 Creatine Kinase 47 (39-308) U/L Med Orders - Current: Current Medications Acetaminophen (Tylenol) 325 mg PO Q4H PRN PRN Reason: Pain Last Admin: 05/31/16 20:12 Dose: 325 mg Methylprednisolone Sodium Succinate 1,000 mg/ Sodium Chloride 108 mls @ 200 mls /hr IV ONETIME ONE Stop: 06/01/16 09:32 Sodium Chloride (Saline Flush) 10 ml FLUSH ASDIRECTED PRN PRN Reason: Keep Vein Open Discontinued Medications Sodium Chloride (Normal Saline) 1,000 mls @ 1,000 mls/hr IV .BOLUS ONE Stop: 05/31/16 08:31 Last Admin: 05/31/16 07:41 Dose: 1,000 mls/hr Methylprednisolone Sodium Succinate 1,000 mg/ Sodium Chloride 108 mls @ 200 mls /hr IV ONETIME ONE Stop: 05/31/16 08:05 Last Admin: 05/31/16 07:51 Dose: 200 mls/hr - Exam General: Reports: alert, cooperative, no acute distress HEENT: Reports: Pupils equal, Pupils reactive, Mucous membr. moist/pink Neck: Reports: supple, trachea midline, no thyromegaly. Denies: lymphadenopathy Lungs: Reports: Clear to auscultation, Normal respiratory effort Cardiovascular: Reports: regular rate, regular rhythm, no murmurs Abdomen: Reports: bowel sounds present, soft, no tenderness, no distension Extremities: Reports: no edema, normal pulses Skin: Reports: warm, dry, intact *Q Meaningful Use (DIS) - VTE *Q VTE Criteria *Q: VTE Anticoagulation Contraindications: Med/tx not indicated/need - Stroke *Q Stroke Criteria *Q: - AMI *Q AMI Criteria *Q:
[2016-06-01] MEDS ORDERED: Sodium Chloride 0.9% 100 ML IV SCH (08:45)
[2016-06-01] MEDS ORDERED: methylPREDNISolone Sod Succ 1,000 MG in Sodium Chloride 0.9% 100 ML IV ONE (09:00)
== END 2016-06-01 10:46 | disposition home or self-care (01) | DRG 948 ==
LOC: VM.ED 07:09 → INTOOBSV 09:36 → UNDOADMOB 09:36 → VM.MS 09:36 → OBSVTOIN 09:36 → UNDODISOB 06-01 10:46
PROVIDERS: ADMIT Family Medicine; ATTEND Family Medicine
DX: R53.1 Weakness (principal); G35 Multiple sclerosis; N31.9 Neuromuscular dysfunction of bladder, unspecified; W19.XXXA Unspecified fall, initial encounter; Z79.1 Long term (current) use of non-steroidal anti-inflammatories (NSAID); Z79.899 Other long term (current) drug therapy; Z88.1 Allergy status to other antibiotic agents; Z82.49 Family history of ischemic heart disease and other diseases of the circulatory system; Z83.3 Family history of diabetes mellitus
CPT/HCPCS: 36415 ×2; 71010; 80053; 81001; 82550 ×2; 83605; 84443; 85025; 87040 ×2; 96361; 96365; 99285; A9270; J2930 ×2; J7030; J7050 ×4

== ENCOUNTER 2016-07-11 10:10 | Inpatient (IN) | payer MEDICARE, MEDICAID ==
[2016-07-11] MEDS ORDERED: Bisacodyl 5 MG Tab PO PRN (12:12)
[2016-07-11] MEDS ORDERED: [UNRECOGNIZED DRUG - SUPPLY] RECTAL PRN (12:12)
--- NOTE | 2016-07-11 17:06 | PCM.HP ---
H&P History of Present Illness - General Date of Service: 07/11/16 Admit Problem/Dx: Admission Diagnosis/Problem Admission Diagnosis/Problem Multiple sclerosis Source of Information: Patient History Limitations: Reports: No limitations - History of Present Illness Initial Comments - Free Text/Narative: Mr. Epps is a 41-year-old male who is admitted to swing bed from inpatient rehab in [place] following a fairly significant MS exacerbation. He was initially hospitalized at [facility] in [place] and treated with a few days of IV steroids. Although his symptoms improved, he was not at baseline and was unable to transfer safely on his own. Therefore, the recommendation was made to proceed with rehabilitation prior to returning home. He completed a portion of this in [place] but then is transferred here to complete this rehab. He states that he is getting closer and closer to his baseline but admits that transfers are still difficult for him. There was some concern about him getting out of bed in the morning and about being able to safely use the restroom independently. He lives alone and has intermittent assistance only from his sister and girlfriend. He denies any worsening of symptoms in the past couple of days. His right arm weakness is improving. His right leg is also at baseline. He does note that his urinary incontinence and has not returned to baseline as it previously did. He has been using a condom catheter but has found this to be bothersome during physical therapy as it will often fall off. He wonders if he can use a brief instead and replace the condom catheter when he returns to his room. He denies any other concerns today up part from morning to confirm that his neurology follow-up is sooner than October. - Related Data Allergies/Adverse Reactions: Allergies Allergy/AdvReac Type Severity Reaction Status Date / Time ceftriaxone sodium Allergy Rash Verified 07/11/16 12:05 [From Rocephin] Home Medications: Home Meds Acetaminophen 650 mg PO Q4H PRN 04/22/16 [History] Docusate Sodium [Colace] 100 mg PO DAILY 04/22/16 [History] Cholecalciferol (Vitamin D3) [Vitamin D3] 4,000 unit PO DAILY 05/31/16 [History] Fluticasone Propionate [Flonase] 1 spray NASBOTH DAILY 05/31/16 [History] Multivits,Ca,Minerals/Iron/FA [Thera-M] 1 tab PO DAILY 05/31/16 [History] Ascorbic Acid 500 mg PO DAILY 07/11/16 [History] Bisacodyl [Dulcolax] 10 mg PO DAILY PRN 07/11/16 [History] Cyanocobalamin (Vitamin B12) [Vitamin B13] 500 mcg PO BID 07/11/16 [History] Docusate Sodium [Enemeez] 283 mg RC BID PRN 07/11/16 [History] Sennosides/Docusate Sodium [Senna S Tablet] 2 tab PO BEDTIME PRN 07/11/16 [ History] Past Medical History - Past Health History Medical/Surgical History: Denies Medical/Surgical History HEENT History: Reports: None Cardiovascular History: Reports: None Respiratory History: Reports: None Gastrointestinal History: Reports: None Genitourinary History: Reports: Neurogenic bladder Musculoskeletal History: Reports: None Other Musculoskeletal History: MS dx 2000 with recent exacerbation Neurological History: Reports: MS Psychiatric History: Reports: None Endocrine/Metabolic History: Reports: None Hematologic History: Reports: None Immunologic History: Reports: None Oncologic (Cancer) History: Reports: None Dermatologic History: Reports: None - Infectious Disease History Infectious Disease History: Reports: None - Past Surgical History Neurological Surgical History: Reports: None Social & Family History - Family History HEENT: Reports: Glaucoma Cardiac: Reports: [place] : Reports: Dialysis Endocrine/Metabolic: Reports: Diabetes, type II - Tobacco Use Smoking Status *Q: Never Smoker Second Hand Smoke Exposure: No - Caffeine Use Caffeine Use: Reports: None Caffeine Use Comment: green tea - Alcohol Use Alcohol Use History: No Days Per Week of Alcohol Use: 0 - Recreational Drug Use Recreational Drug Use: No - Living Situation & Occupation Living situation: Reports: alone (Lives alone. Has a girlfriend who lives in [place]. 2 sisters also live relatively close. He is normally independent for ADLs but has assistance with getting groceries, etc.) Occupation: disabled H&P Review of Systems - Review of Systems: Review Of Systems: See Below General: Reports: no symptoms HEENT: Reports: no symptoms Pulmonary: Reports: No Symptoms Cardiovascular: Reports: no symptoms Gastrointestinal: Reports: No symptoms Genitourinary: Reports: incontinence. Denies: dysuria Musculoskeletal: Reports: no symptoms Skin: Reports: no symptoms Psychiatric: Reports: no symptoms Neurological: Reports: Pre-Existing Deficit Hematologic/Lymphatic: Reports: no symptoms Exam - Exam Exam: See Below - Vital Signs Vital Signs: Last Vital Signs Temp 36.4 C 07/11/16 11:54 Pulse 103 H 07/11/16 11:54 Resp 20 07/11/16 11:54 BP 144/92 H 07/11/16 11:54 Pulse Ox 98 07/11/16 13:31 Weight: 115.349 kg - Exam General: alert, oriented, cooperative HEENT: Conjunctiva clear, EOMI, Mucosa moist & pink, Pupils equal, Pupils reactive Neck: supple, trachea midline. No: lymphadenopathy, thyromegaly Lungs: Clear to auscultation, Normal respiratory effort Cardiovascular: regular rate, regular rhythm, normal S1, normal S2. No: systolic murmur, diastolic murmur Abdomen: normal bowel sounds, soft. No: distention, tenderness Back Exam: normal inspection, full range of motion Extremities: normal inspection, normal pulses. No: edema Skin: warm, dry, intact Neurological: other (Patient has 4/5 strength in the upper extremities bilaterally. He has no large motor movement in the right leg, which is his baseline. He has normal strength and range of motion in the left leg.) Psychiatric: alert, normal affect, normal mood *Q Meaningful Use (ADM) - VTE *Q VTE Criteria *Q: VTE Anticoagulation Contraindications: Med/tx not indicated/need - Stroke *Q Stroke Criteria *Q: - AMI *Q AMI Criteria *Q: - Problem List (1) Multiple sclerosis SNOMED Code(s): 67445593 ICD Code: G35 - MULTIPLE SCLEROSIS Status: Acute Current Visit: No Problem Details: - Patient had progression of plaque on MRI done during his recent hospitalization. - He is not currently on any treatment but will be seeing neurology in July. - As far as I can tell, he is not to get any treatment before then. If his symptoms of weakness and numbness worsen again, then we would go ahead and start a 3 day course of Solu-Medrol. (2) Weakness SNOMED Code(s): 12143861 ICD Code: R53.1 - WEAKNESS Status: Acute Current Visit: No Problem Details: - Secondary to MS exacerbation. - PT consult for eval and treatment. (3) Neurogenic bladder SNOMED Code(s): 797481655 ICD Code: N31.9 - NEUROMUSCULAR DYSFUNCTION OF BLADDER, UNSPECIFIED Status : Chronic Current Visit: No Problem Details: - Patient has been on oxybutynin in the past without much benefit. - Not currently taking this or anything else for bladder symptoms. - Can use briefs at physical therapy and condom catheter otherwise. (4) Allergic rhinitis SNOMED Code(s): 80961028 ICD Code: J30.9 - ALLERGIC RHINITIS, UNSPECIFIED Status: Chronic Current Visit: Yes Problem Details: - Continue Flonase. Qualifiers: Allergic rhinitis trigger: unspecified Allergic rhinitis seasonality: seasonal Qualified Code(s): J30.2 - Other seasonal allergic rhinitis (5) Constipation SNOMED Code(s): 22988084 ICD Code: K59.00 - CONSTIPATION, UNSPECIFIED Status: Chronic Current Visit: Yes Problem Details: - He has had issues with tolerating most medications. - He does well with Colace at home; therefore, we will continue this here. Qualifiers: Constipation type: unspecified constipation type Qualified Code(s): K59.00 - Constipation, unspecified Problem List Initiated/Reviewed/Updated: Yes Orders Last 24hrs: Active Orders 24 hr Category Date Time Status Admission Status [Patient Status] [ADT] Routine ADT 07/11/16 10:40 Active Notify Provider Vital Signs [RC] Care 07/11/16 12:11 Active Oxygen Therapy [RC] .PRN Care 07/11/16 12:10 Active Up With Assistance [RC] Care 07/11/16 12:10 Active VTE/DVT Education [RC] .PRN Care 07/11/16 12:10 Active Vital Signs [RC] , Care 07/11/16 12:10 Active PT Evaluation and Treatment [CONS] Routine Cons 07/11/16 12:10 Active Gluten Free Diet [DIET] Diet 07/11/16 Dinner Active Acetaminophen [Tylenol] Med 07/11/16 12:12 Active 650 mg PO Q4H PRN Cholecalciferol (Vitamin D3) [Vitamin D3] Med 07/12/16 08:00 Active 4,000 units PO DAILY Cyanocobalamin (Vitamin B12) [Vitamin B12] Med 07/11/16 20:00 Active 500 mcg PO BID Docusate Sodium [Colace] Med 07/12/16 08:00 Active 100 mg PO DAILY Fluticasone Propionate [Flonase] Med 07/12/16 08:00 Active 0 gm NASBOTH DAILY Anticoagulation Contraindications VTE [AST] Routine Oth 07/11/16 12:10 Ordered Resuscitation Status Routine Resus Stat 07/11/16 12:10 Ordered Medication Orders Acetaminophen (Tylenol) 650 mg PO Q4H PRN PRN Reason: Pain (mild 1-3) Cholecalciferol (Vitamin D3) 4,000 units PO DAILY ORAL Cyanocobalamin (Vitamin B12) 500 mcg PO BID ORAL Docusate Sodium (Colace) 100 mg PO DAILY ORAL Fluticasone Propionate (Flonase) 0 gm NASBOTH DAILY ORAL Assessment/Plan Comment:: 41-year-old male admitted for rehab following a multiple sclerosis exacerbation. He will have a PT consult for evaluation and treatment. His current medications will be continued. He will follow-up with neurology as already scheduled in July. He wishes to be full code. There is no indication for VTE prophylaxis as he is at or at least near his functional baseline. The duration of his hospitalization will be dependent on PT recommendations but I anticipate 2 weeks maximum.
[2016-07-11] MEDS: Cyanocobalamin (Vitamin B12) 250 MCG Tab PO SCH (19:47)
[2016-07-11] MEDS ORDERED: Cyanocobalamin (Vitamin B12) 250 MCG Tab PO SCH (20:00)
[2016-07-11] MEDS ORDERED: Vitamin B Complex Tab.ER PO SCH (20:00)
[2016-07-12] MEDS: Cyanocobalamin (Vitamin B12) 250 MCG Tab PO SCH ×2 (07:42→19:26)
[2016-07-12] MEDS: Cholecalciferol (Vitamin D3) 1,000 Unit Tab PO SCH (07:42)
[2016-07-12] MEDS: Docusate Sodium 100 MG Cap PO SCH (07:42)
[2016-07-12] MEDS: Fluticasone Propionate Nasal Spray 16 GM Bottle NASBOTH SCH (07:43)
[2016-07-12] MEDS ORDERED: Multivitamins with Iron/Calcium/Folic Acid/Minerals Tab PO SCH (08:00)
[2016-07-12] MEDS ORDERED: Ascorbic Acid 500 MG Tab PO SCH (08:00)
[2016-07-13] MEDS: Cholecalciferol (Vitamin D3) 1,000 Unit Tab PO SCH (07:32)
[2016-07-13] MEDS: Fluticasone Propionate Nasal Spray 16 GM Bottle NASBOTH SCH (07:32)
[2016-07-13] MEDS: Cyanocobalamin (Vitamin B12) 250 MCG Tab PO SCH ×2 (07:32→20:07)
[2016-07-13] MEDS: Docusate Sodium 100 MG Cap PO SCH (07:32)
[2016-07-14] MEDS: Acetaminophen 325 MG Tab PO PRN (06:05)
[2016-07-14] MEDS: Cholecalciferol (Vitamin D3) 1,000 Unit Tab PO SCH (08:33)
[2016-07-14] MEDS: Cyanocobalamin (Vitamin B12) 250 MCG Tab PO SCH ×2 (08:33→20:38)
[2016-07-14] MEDS: Fluticasone Propionate Nasal Spray 16 GM Bottle NASBOTH SCH (08:33)
[2016-07-14] MEDS: Docusate Sodium 100 MG Cap PO SCH (08:33)
[2016-07-14] MEDS: Magnesium Hydroxide 400 MG/5 ML Susp 30 ML Cup PO PRN (16:10)
[2016-07-15] MEDS: Docusate Sodium 100 MG Cap PO SCH (08:47)
[2016-07-15] MEDS: Cholecalciferol (Vitamin D3) 1,000 Unit Tab PO SCH (08:48)
[2016-07-15] MEDS: Cyanocobalamin (Vitamin B12) 250 MCG Tab PO SCH ×2 (08:48→20:22)
[2016-07-15] MEDS: Fluticasone Propionate Nasal Spray 16 GM Bottle NASBOTH SCH (08:49)
[2016-07-15] MEDS: Magnesium Hydroxide 400 MG/5 ML Susp 30 ML Cup PO PRN (20:23)
[2016-07-16] MEDS: Cholecalciferol (Vitamin D3) 1,000 Unit Tab PO SCH (08:25)
[2016-07-16] MEDS: Docusate Sodium 100 MG Cap PO SCH (08:27)
[2016-07-16] MEDS: Cyanocobalamin (Vitamin B12) 250 MCG Tab PO SCH ×2 (08:27→19:33)
[2016-07-16] MEDS: Fluticasone Propionate Nasal Spray 16 GM Bottle NASBOTH SCH (08:28)
[2016-07-16] MEDS ORDERED: Sodium Phosphate,Monobasic/Sodium Phosphate,Dibasic Enema 133 ML Bottle RECTAL ONE (08:44)
[2016-07-16] MEDS: Polyethylene Glycol 3350 Powder 17 GM Packet PO SCH (10:21)
[2016-07-17] MEDS: Polyethylene Glycol 3350 Powder 17 GM Packet PO SCH (07:48)
[2016-07-17] MEDS: Cholecalciferol (Vitamin D3) 1,000 Unit Tab PO SCH (07:48)
[2016-07-17] MEDS: Fluticasone Propionate Nasal Spray 16 GM Bottle NASBOTH SCH (07:48)
[2016-07-17] MEDS: Cyanocobalamin (Vitamin B12) 250 MCG Tab PO SCH ×2 (07:48→20:10)
[2016-07-18] MEDS: Cholecalciferol (Vitamin D3) 1,000 Unit Tab PO SCH (08:00)
[2016-07-18] MEDS: Fluticasone Propionate Nasal Spray 16 GM Bottle NASBOTH SCH (08:01)
[2016-07-18] MEDS: Polyethylene Glycol 3350 Powder 17 GM Packet PO SCH (08:01)
[2016-07-18] MEDS: Cyanocobalamin (Vitamin B12) 250 MCG Tab PO SCH ×2 (08:02→19:22)
--- NOTE | 2016-07-18 17:53 | PCM.PN ---
- General Info Date of Service: 07/18/16 Subjective Update: Doing well this am. Denies complaints. Wants to make sure we get the paperwork done so the hospital bed is there when he gets home. Strength is improving but not back to baseline. ROS negative as below. - Review of Systems General: Reports: No Symptoms HEENT: Reports: no symptoms Pulmonary: Reports: no symptoms Cardiovascular: Reports: No Symptoms Gastrointestinal: Reports: No symptoms Genitourinary: Reports: incontinence Musculoskeletal: Reports: no symptoms Skin: Reports: no symptoms - Patient Data Vitals - most recent: Last Vital Signs Temp 35.7 C 07/18/16 06:00 Pulse 74 07/17/16 06:00 Resp 18 07/18/16 06:00 BP 127/81 07/18/16 06:00 Pulse Ox 99 07/18/16 06:00 Weight - most recent: 115.349 kg I&O - last 24 hours: Intake & Output 07/18/16 07/18/16 07/18/16 06:59 14:59 22:59 Intake Total 600 Balance 600 Med Orders - Current: Current Medications Acetaminophen (Tylenol) 650 mg PO Q4H PRN PRN Reason: Pain (mild 1-3) Last Admin: 07/14/16 06:05 Dose: 650 mg Cholecalciferol (Vitamin D3) 4,000 units PO DAILY [facility] Last Admin: 07/18/16 08:00 Dose: Not Given Cyanocobalamin (Vitamin B12) 500 mcg PO BID [facility] Last Admin: 07/18/16 08:02 Dose: Not Given Fluticasone Propionate (Flonase) 0 gm NASBOTH DAILY [facility] Last Admin: 07/18/16 08:01 Dose: 2 spray Magnesium Hydroxide (Milk Of Magnesia) 30 ml PO DAILY PRN PRN Reason: Constipation Last Admin: 07/15/16 20:23 Dose: 30 ml Polyethylene Glycol (Miralax) 17 gm PO DAILY [facility] Last Admin: 07/18/16 08:01 Dose: 17 gm Senna/Docusate Sodium (Senna Plus) 1 tab PO BID [facility] Last Admin: 07/18/16 08:02 Dose: 1 tab Discontinued Medications Ascorbic Acid (Vitamin C) 500 mg PO DAILY [facility] Bisacodyl (Dulcolax) 10 mg PO DAILY PRN PRN Reason: Constipation Cyanocobalamin (Vitamin B12) 500 mcg PO BID [facility] Docusate Sodium (Colace) 100 mg PO DAILY [facility] Last Admin: 07/16/16 08:27 Dose: 100 mg Multivitamins/Minerals (Thera M Plus) 1 tab PO DAILY [facility] Non-Formulary Medication (Container,Empty [Enema Bottle]) 283 mg RECTAL BID PRN PRN Reason: Constipation Senna/Docusate Sodium (Senna Plus) 2 tab PO BEDTIME PRN PRN Reason: Constipation Sodium Biphosphate/Sodium Phosphate (Fleet Enema) 133 ml RECTAL ONETIME ONE Stop: 07/16/16 08:45 Last Admin: 07/16/16 09:29 Dose: 1 enema Vitamin B Complex (Balanced B-50) 1 each PO BID [facility] - Exam General: alert, cooperative, no acute distress HEENT: Mucous membr. moist/pink Neck: supple, no thyromegaly. No: lymphadenopathy Lungs: Clear to auscultation, Normal respiratory effort Cardiovascular: Regular Rate, Regular Rhythm, No Murmurs Abdomen: bowel sounds present, soft, no tenderness, no distension Extremities: no edema, normal pulses Skin: warm, dry, intact - Problem List & Annotations (1) Multiple sclerosis SNOMED Code(s): 36133580 Code(s): G35 - MULTIPLE SCLEROSIS Status: Acute Current Visit: No Annotation/Comment:: - Patient had progression of plaque on MRI done during his recent hospitalization. - He is not currently on any treatment but will be seeing neurology in July. - As far as I can tell, he is not to get any treatment before then. If his symptoms of weakness and numbness worsen again, then we would go ahead and start a 3 day course of Solu-Medrol. (2) Weakness SNOMED Code(s): 07026110 Code(s): R53.1 - WEAKNESS Status: Acute Current Visit: No Annotation/ Comment:: - Secondary to MS exacerbation. - PT is working with the patient for strengthening. Presuming he will be able to be dismissed as early as next week. (3) Neurogenic bladder SNOMED Code(s): 432583576 Code(s): N31.9 - NEUROMUSCULAR DYSFUNCTION OF BLADDER, UNSPECIFIED Status: Chronic Current Visit: No Annotation/Comment:: - Patient has been on oxybutynin in the past without much benefit. - Not currently taking this or anything else for bladder symptoms. - Using breifs only at this stage. Declines use of condom catheter. (4) Allergic rhinitis SNOMED Code(s): 87494848 Code(s): J30.9 - ALLERGIC RHINITIS, UNSPECIFIED Status: Chronic Current Visit: Yes Qualifiers: Allergic rhinitis trigger: unspecified Allergic rhinitis seasonality: seasonal Qualified Code(s): J30.2 - Other seasonal allergic rhinitis Annotation/Comment:: - Continue Flonase. (5) Constipation SNOMED Code(s): 05069084 Code(s): K59.00 - CONSTIPATION, UNSPECIFIED Status: Chronic Current Visit : Yes Qualifiers: Constipation type: unspecified constipation type Qualified Code(s): K59.00 - Constipation, unspecified Annotation/Comment:: - He has had issues with tolerating most medications. - He is doing well on his current regimen. - No changes needed. - Problem List Review Problem List Initiated/Reviewed/Updated: Yes - Assessment Assessment:: 41 yo male admitted to swing bed for rehab following an MS exacerbation. Strength is gradually improving. - Plan Plan:: Continue PT. His current medications will be continued. He will follow-up with neurology as already scheduled in July. He wishes to be full code. There is no indication for VTE prophylaxis as he is at or at least near his functional baseline. Anticipate dismissal as early as next week, depending on progress with PT.
[2016-07-19] MEDS: Cholecalciferol (Vitamin D3) 1,000 Unit Tab PO SCH (08:05)
[2016-07-19] MEDS: Fluticasone Propionate Nasal Spray 16 GM Bottle NASBOTH SCH (08:05)
[2016-07-19] MEDS: Cyanocobalamin (Vitamin B12) 250 MCG Tab PO SCH ×2 (08:08→20:02)
[2016-07-19] MEDS: Polyethylene Glycol 3350 Powder 17 GM Packet PO SCH (08:08)
--- NOTE | 2016-07-19 17:05 | PCM.SN ---
- Free Text/Narrative Note: Patient requires a variable height hospital bed in order to permit transfers to his wheelchair. He needs this because he has MS, which will be a lifelong condition for him. He has secondary progressive MS, meaning that his symptoms will continue to worsen over time. His prognosis is guarded. 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 He has tried typical MS treatments, which have not prevented relapses. He will be starting a new medication soon, per neurology, to help reduce frequency of relapses but this will not change the lack of function in the right leg.
[2016-07-20] MEDS: Polyethylene Glycol 3350 Powder 17 GM Packet PO SCH (08:40)
[2016-07-20] MEDS: Cyanocobalamin (Vitamin B12) 250 MCG Tab PO SCH ×2 (08:40→19:33)
[2016-07-20] MEDS: Cholecalciferol (Vitamin D3) 1,000 Unit Tab PO SCH (08:41)
[2016-07-20] MEDS: Fluticasone Propionate Nasal Spray 16 GM Bottle NASBOTH SCH (08:41)
--- NOTE | 2016-07-20 16:29 | PCM.SN ---
- Free Text/Narrative Note: This note is written while the patient is in the hospital in hopes the hospital bed can be at his home upon dismissal. Patient requires a variable height hospital bed in order to permit transfers to his wheelchair. He needs this because he has MS, which will be a lifelong condition for him. He has secondary progressive MS, meaning that his symptoms will continue to worsen over time. His prognosis is guarded. 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 He has tried typical MS treatments, which have not prevented relapses. He will be starting a new medication soon, per neurology, to help reduce frequency of relapses but this will not change the lack of function in the right leg.
[2016-07-21] MEDS: Cholecalciferol (Vitamin D3) 1,000 Unit Tab PO SCH (07:56)
[2016-07-21] MEDS: Polyethylene Glycol 3350 Powder 17 GM Packet PO SCH (07:56)
[2016-07-21] MEDS: Cyanocobalamin (Vitamin B12) 250 MCG Tab PO SCH ×2 (07:57→20:51)
[2016-07-21] MEDS: Fluticasone Propionate Nasal Spray 16 GM Bottle NASBOTH SCH (07:59)
[2016-07-21] MEDS: Magnesium Hydroxide 400 MG/5 ML Susp 30 ML Cup PO PRN (20:57)
[2016-07-22] MEDS: Cholecalciferol (Vitamin D3) 1,000 Unit Tab PO SCH (08:31)
[2016-07-22] MEDS: Polyethylene Glycol 3350 Powder 17 GM Packet PO SCH (08:31)
[2016-07-22] MEDS: Cyanocobalamin (Vitamin B12) 250 MCG Tab PO SCH ×2 (08:32→20:16)
[2016-07-22] MEDS: Fluticasone Propionate Nasal Spray 16 GM Bottle NASBOTH SCH (08:34)
[2016-07-22] MEDS ORDERED: Sodium Phosphate,Monobasic/Sodium Phosphate,Dibasic Enema 133 ML Bottle RECTAL ONE (12:49)
[2016-07-22] MEDS: Magnesium Hydroxide 400 MG/5 ML Susp 30 ML Cup PO PRN (16:43)
[2016-07-23] MEDS: Cyanocobalamin (Vitamin B12) 250 MCG Tab PO SCH ×2 (07:40→20:05)
[2016-07-23] MEDS: Cholecalciferol (Vitamin D3) 1,000 Unit Tab PO SCH (07:40)
[2016-07-23] MEDS: Polyethylene Glycol 3350 Powder 17 GM Packet PO SCH (07:40)
[2016-07-23] MEDS: Fluticasone Propionate Nasal Spray 16 GM Bottle NASBOTH SCH (07:41)
[2016-07-23] MEDS ORDERED: Sodium Phosphate,Monobasic/Sodium Phosphate,Dibasic Enema 133 ML Bottle RECTAL ONE (08:03)
[2016-07-24] MEDS: Acetaminophen 325 MG Tab PO PRN (06:02)
[2016-07-24] MEDS: Polyethylene Glycol 3350 Powder 17 GM Packet PO SCH (08:01)
[2016-07-24] MEDS: Cholecalciferol (Vitamin D3) 1,000 Unit Tab PO SCH (08:01)
[2016-07-24] MEDS: Cyanocobalamin (Vitamin B12) 250 MCG Tab PO SCH ×2 (08:01→20:10)
[2016-07-24] MEDS: Fluticasone Propionate Nasal Spray 16 GM Bottle NASBOTH SCH (08:02)
[2016-07-25] MEDS: Cyanocobalamin (Vitamin B12) 250 MCG Tab PO SCH ×2 (07:41→21:19)
[2016-07-25] MEDS: Cholecalciferol (Vitamin D3) 1,000 Unit Tab PO SCH (07:42)
[2016-07-25] MEDS: Polyethylene Glycol 3350 Powder 17 GM Packet PO SCH (07:42)
[2016-07-25] MEDS: Fluticasone Propionate Nasal Spray 16 GM Bottle NASBOTH SCH (07:44)
[2016-07-26] MEDS: Cyanocobalamin (Vitamin B12) 250 MCG Tab PO SCH ×2 (09:42→20:00)
[2016-07-26] MEDS: Cholecalciferol (Vitamin D3) 1,000 Unit Tab PO SCH (09:42)
[2016-07-26] MEDS: Polyethylene Glycol 3350 Powder 17 GM Packet PO SCH (09:42)
[2016-07-26] MEDS: Fluticasone Propionate Nasal Spray 16 GM Bottle NASBOTH SCH (09:43)
[2016-07-26] MEDS: Acetaminophen 325 MG Tab PO PRN (20:13)
[2016-07-27] MEDS: Polyethylene Glycol 3350 Powder 17 GM Packet PO SCH (07:47)
[2016-07-27] MEDS: Fluticasone Propionate Nasal Spray 16 GM Bottle NASBOTH SCH (07:47)
[2016-07-27] MEDS: Cyanocobalamin (Vitamin B12) 250 MCG Tab PO SCH ×2 (07:49→20:14)
[2016-07-27] MEDS: Cholecalciferol (Vitamin D3) 1,000 Unit Tab PO SCH (07:50)
[2016-07-27] MEDS: Magnesium Hydroxide 400 MG/5 ML Susp 30 ML Cup PO PRN (07:51)
[2016-07-27] MEDS: Acetaminophen 325 MG Tab PO PRN (20:16)
[2016-07-28] MEDS: Fluticasone Propionate Nasal Spray 16 GM Bottle NASBOTH SCH (08:01)
[2016-07-28] MEDS: Cholecalciferol (Vitamin D3) 1,000 Unit Tab PO SCH (08:04)
[2016-07-28] MEDS: Cyanocobalamin (Vitamin B12) 250 MCG Tab PO SCH ×2 (08:04→19:59)
[2016-07-28] MEDS: Polyethylene Glycol 3350 Powder 17 GM Packet PO SCH (08:05)
[2016-07-28] MEDS: Magnesium Hydroxide 400 MG/5 ML Susp 30 ML Cup PO PRN (17:40)
[2016-07-28] MEDS: Oxybutynin 5 MG Tab.ER PO SCH (19:59)
[2016-07-28] MEDS: Acetaminophen 325 MG Tab PO PRN (20:00)
[2016-07-29] MEDS: Cholecalciferol (Vitamin D3) 1,000 Unit Tab PO SCH (08:25)
[2016-07-29] MEDS: Polyethylene Glycol 3350 Powder 17 GM Packet PO SCH (08:25)
[2016-07-29] MEDS: Cyanocobalamin (Vitamin B12) 250 MCG Tab PO SCH ×2 (08:25→21:11)
[2016-07-29] MEDS: Fluticasone Propionate Nasal Spray 16 GM Bottle NASBOTH SCH (08:26)
--- NOTE | 2016-07-29 09:58 | PCM.PN ---
- General Info Date of Service: 07/29/16 Subjective Update: Overall doing well and progressing with therapy. They do not want him to return home until his hospital bed has arrived. He will spend 75% of time in the hospital bed and only use his motorized chair when he is out and about or with mobility around his home for ADLs. He requests to restart oxybutynin for his bladder. Otherwise, he denies any concerns. - Review of Systems General: Reports: No Symptoms HEENT: Reports: no symptoms Pulmonary: Reports: no symptoms Cardiovascular: Reports: No Symptoms Gastrointestinal: Reports: No symptoms Genitourinary: Reports: no symptoms Musculoskeletal: Reports: no symptoms Skin: Reports: no symptoms Neurological: Reports: No Symptoms - Patient Data Vitals - most recent: Last Vital Signs Temp 36.4 C 07/29/16 06:00 Pulse 92 07/29/16 06:00 Resp 20 07/29/16 06:00 BP 127/77 07/29/16 06:00 Pulse Ox 95 07/29/16 06:00 Weight - most recent: 117.027 kg I&O - last 24 hours: Intake & Output 07/28/16 07/29/16 07/29/16 22:59 06:59 14:59 Intake Total 240 180 Balance 240 180 Med Orders - Current: Current Medications Acetaminophen (Tylenol) 650 mg PO Q4H PRN PRN Reason: Pain (mild 1-3) Last Admin: 07/28/16 20:00 Dose: 650 mg Cholecalciferol (Vitamin D3) 4,000 units PO DAILY [facility] [place] Last Admin: 07/29/16 08:25 Dose: 4,000 units Cyanocobalamin (Vitamin B12) 500 mcg PO BID [facility] Last Admin: 07/29/16 08:25 Dose: 500 mcg Fluticasone Propionate (Flonase) 0 gm NASBOTH DAILY [facility] Last Admin: 07/29/16 08:26 Dose: 1 spray Magnesium Hydroxide (Milk Of Magnesia) 30 ml PO DAILY PRN PRN Reason: Constipation Last Admin: 07/28/16 17:40 Dose: 30 ml Oxybutynin Chloride (Oxybutynin Er) 5 mg PO BEDTIME [facility] [place] Last Admin: 07/28/16 19:59 Dose: 5 mg Polyethylene Glycol (Miralax) 17 gm PO DAILY [facility] [place] Last Admin: 07/29/16 08:25 Dose: 17 gm Senna/Docusate Sodium (Senna Plus) 1 tab PO BID [facility] [place] Last Admin: 07/29/16 08:25 Dose: 1 tab Discontinued Medications Ascorbic Acid (Vitamin C) 500 mg PO DAILY [facility] [place] Bisacodyl (Dulcolax) 10 mg PO DAILY PRN PRN Reason: Constipation Cyanocobalamin (Vitamin B12) 500 mcg PO BID [facility] [place] Docusate Sodium (Colace) 100 mg PO DAILY [facility] [place] Last Admin: 07/16/16 08:27 Dose: 100 mg Multivitamins/Minerals (Thera M Plus) 1 tab PO DAILY [facility] [place] Non-Formulary Medication (Container,Empty [Enema Bottle]) 283 mg RECTAL BID PRN PRN Reason: Constipation Senna/Docusate Sodium (Senna Plus) 2 tab PO BEDTIME PRN PRN Reason: Constipation Sodium Biphosphate/Sodium Phosphate (Fleet Enema) 133 ml RECTAL ONETIME ONE Stop: 07/16/16 08:45 Last Admin: 07/16/16 09:29 Dose: 1 enema Sodium Biphosphate/Sodium Phosphate (Fleet Enema) 133 ml RECTAL ONETIME ONE Stop: 07/22/16 12:50 Last Admin: 07/22/16 15:37 Dose: 1 each Sodium Biphosphate/Sodium Phosphate (Fleet Enema) 133 ml RECTAL ONETIME ONE Stop: 07/23/16 08:04 Last Admin: 07/23/16 09:18 Dose: Not Given Vitamin B Complex (Balanced B-50) 1 each PO BID [facility] [place] - Exam General: alert, cooperative, no acute distress HEENT: Mucous membr. moist/pink Lungs: Clear to auscultation, Normal respiratory effort Cardiovascular: Regular Rate, Regular Rhythm, No Murmurs Abdomen: bowel sounds present, soft, no tenderness, no distension Extremities: no edema, normal pulses Skin: warm, dry, intact - Problem List & Annotations (1) Multiple sclerosis SNOMED Code(s): 11059260 Code(s): G35 - MULTIPLE SCLEROSIS Status: Acute Current Visit: No Annotation/Comment:: - Patient had progression of plaque on MRI done during his recent hospitalization. - He is not currently on any treatment but will be seeing neurology August 03. - As far as I can tell, he is not to get any treatment before then. If his symptoms of weakness and numbness worsen again, then we would go ahead and start a 3 day course of Solu-Medrol. (2) Weakness SNOMED Code(s): 59719062 Code(s): R53.1 - WEAKNESS Status: Acute Current Visit: No Annotation/ Comment:: - Secondary to MS exacerbation. - PT is working with the patient for strengthening. Planning for dismissal next week after his hospital bed has arrived. - I am still seeing him in the hospital. He needs the hospital bed due to weakness secondary to his MS and safety transferring as well as avoidance of pressure wounds from otherwise sitting up in his chair. He will spend 75% of his time in the bed. (3) Neurogenic bladder SNOMED Code(s): 217819350 Code(s): N31.9 - NEUROMUSCULAR DYSFUNCTION OF BLADDER, UNSPECIFIED Status: Chronic Current Visit: No Annotation/Comment:: - Restart oxybutynin per patient's request. (4) Allergic rhinitis SNOMED Code(s): 60993996 Code(s): J30.9 - ALLERGIC RHINITIS, UNSPECIFIED Status: Chronic Current Visit: Yes Qualifiers: Allergic rhinitis trigger: unspecified Allergic rhinitis seasonality: seasonal Qualified Code(s): J30.2 - Other seasonal allergic rhinitis Annotation/Comment:: - Continue Flonase. (5) Constipation SNOMED Code(s): 26663598 Code(s): K59.00 - CONSTIPATION, UNSPECIFIED Status: Chronic Current Visit : Yes Qualifiers: Constipation type: unspecified constipation type Qualified Code(s): K59.00 - Constipation, unspecified Annotation/Comment:: - He has had issues with tolerating most medications. - He is doing well on his current regimen. - No changes needed. - Problem List Review Problem List Initiated/Reviewed/Updated: Yes - My Orders Last 24 Hours: My Active Orders 07/28/16 20:00 Oxybutynin [Oxybutynin ER] 5 mg PO BEDTIME - Assessment Assessment:: 41 yo male admitted to swing bed for rehab following an MS exacerbation. Strength is gradually improving. - Plan Plan:: Continue PT. His current medications will be continued and oxybutynin will be added. He will follow-up with neurology as already scheduled in July. He wishes to be full code. There is no indication for VTE prophylaxis as he is at or at least near his functional baseline. Anticipate dismissal late next week.
[2016-07-29] MEDS: Oxybutynin 5 MG Tab.ER PO SCH (21:11)
--- NOTE | 2016-07-30 08:31 | PCM.SN ---
- Free Text/Narrative Note: Patient with episode of weakness yesterday. Only change was oxybutynin so he thinks this was the cause. He is somewhat better today but not completely back to baseline. Will d/c oxybutynin and also give a 3 day course of IV steroids since it has been awhile since he had any treatment and he has not heard back from neurology whether he should be doing anything in between his appointments.
[2016-07-30] MEDS: Cyanocobalamin (Vitamin B12) 250 MCG Tab PO SCH ×2 (08:39→19:27)
[2016-07-30] MEDS: Polyethylene Glycol 3350 Powder 17 GM Packet PO SCH (08:39)
[2016-07-30] MEDS: Cholecalciferol (Vitamin D3) 1,000 Unit Tab PO SCH (08:39)
[2016-07-30] MEDS: Fluticasone Propionate Nasal Spray 16 GM Bottle NASBOTH SCH (08:40)
[2016-07-30] MEDS: methylPREDNISolone Sod Succ 1,000 MG in Sodium Chloride 0.9% 100 ML IV SCH (09:38)
[2016-07-30] MEDS: Acetaminophen 325 MG Tab PO PRN (22:41)
[2016-07-31] MEDS: Cyanocobalamin (Vitamin B12) 250 MCG Tab PO SCH ×2 (08:05→19:24)
[2016-07-31] MEDS: methylPREDNISolone Sod Succ 1,000 MG in Sodium Chloride 0.9% 100 ML IV SCH (08:05)
[2016-07-31] MEDS: Polyethylene Glycol 3350 Powder 17 GM Packet PO SCH (08:05)
[2016-07-31] MEDS: Cholecalciferol (Vitamin D3) 1,000 Unit Tab PO SCH (08:05)
[2016-07-31] MEDS: Fluticasone Propionate Nasal Spray 16 GM Bottle NASBOTH SCH (08:06)
[2016-08-01] MEDS: Cholecalciferol (Vitamin D3) 1,000 Unit Tab PO SCH (08:11)
[2016-08-01] MEDS: Fluticasone Propionate Nasal Spray 16 GM Bottle NASBOTH SCH (08:12)
[2016-08-01] MEDS: Polyethylene Glycol 3350 Powder 17 GM Packet PO SCH (08:13)
[2016-08-01] MEDS: methylPREDNISolone Sod Succ 1,000 MG in Sodium Chloride 0.9% 100 ML IV SCH (08:28)
[2016-08-01] MEDS: Cyanocobalamin (Vitamin B12) 250 MCG Tab PO SCH ×2 (08:57→20:10)
[2016-08-02] MEDS: Polyethylene Glycol 3350 Powder 17 GM Packet PO SCH (09:40)
[2016-08-02] MEDS: Cyanocobalamin (Vitamin B12) 250 MCG Tab PO SCH ×2 (09:41→20:51)
[2016-08-02] MEDS: Cholecalciferol (Vitamin D3) 1,000 Unit Tab PO SCH (09:42)
[2016-08-02] MEDS: Fluticasone Propionate Nasal Spray 16 GM Bottle NASBOTH SCH (09:43)
[2016-08-03] MEDS: Polyethylene Glycol 3350 Powder 17 GM Packet PO SCH (08:11)
[2016-08-03] MEDS: Cyanocobalamin (Vitamin B12) 250 MCG Tab PO SCH ×3 (08:11→19:12)
[2016-08-03] MEDS: Cholecalciferol (Vitamin D3) 1,000 Unit Tab PO SCH (08:11)
[2016-08-03] MEDS: Fluticasone Propionate Nasal Spray 16 GM Bottle NASBOTH SCH (08:12)
[2016-08-04] MEDS: Cholecalciferol (Vitamin D3) 1,000 Unit Tab PO SCH (07:34)
[2016-08-04] MEDS: Polyethylene Glycol 3350 Powder 17 GM Packet PO SCH (07:34)
[2016-08-04] MEDS: Fluticasone Propionate Nasal Spray 16 GM Bottle NASBOTH SCH (07:35)
[2016-08-04] MEDS: Cyanocobalamin (Vitamin B12) 250 MCG Tab PO SCH ×2 (07:35→20:05)
[2016-08-04] MEDS: Magnesium Hydroxide 400 MG/5 ML Susp 30 ML Cup PO PRN (07:39)
[2016-08-05 06:47] VITALS: BP 128/83
[2016-08-05] MEDS: Cyanocobalamin (Vitamin B12) 250 MCG Tab PO SCH (07:38)
[2016-08-05] MEDS: Polyethylene Glycol 3350 Powder 17 GM Packet PO SCH (07:38)
[2016-08-05] MEDS: Cholecalciferol (Vitamin D3) 1,000 Unit Tab PO SCH (07:38)
[2016-08-05] MEDS: Fluticasone Propionate Nasal Spray 16 GM Bottle NASBOTH SCH (07:39)
--- NOTE | 2016-08-05 11:10 | PCM.DCSUM1 ---
Discharge Summary - Hospital Course Brief History: Mr. Epps is a 41 yo male who was admitted to swing bed for ongoing rehabilitation following an exacerbation of his MS. - Discharge Data Discharge Date: 08/05/16 Discharge Disposition: Home, Self-Care 01 Condition: Good - Discharge Diagnosis/Problem(s) (1) Multiple sclerosis SNOMED Code(s): 78127889 ICD Code: G35 - MULTIPLE SCLEROSIS Status: Acute Current Visit: No Problem Details: Patient had progression of plaque on MRI done during his recent hospitalization. Due to weakness later in his swing bed stay, he was treated with a 3 day course of solu-medrol. He did attend his follow up with neurology on August 03 and a new medication is planned to start next week. He successfully completed his rehabilitation and will be dismissed to home with home health. He was also able to obtain a hospital bed to increase the safety of his transferring. (2) Weakness SNOMED Code(s): 43091150 ICD Code: R53.1 - WEAKNESS Status: Acute Current Visit: No Problem Details: Secondary to MS exacerbation. Please see details under this problem above. (3) Neurogenic bladder SNOMED Code(s): 162761314 ICD Code: N31.9 - NEUROMUSCULAR DYSFUNCTION OF BLADDER, UNSPECIFIED Status : Chronic Current Visit: No Problem Details: Oxybutynin was restarted per patient's request; however, he had subsequent worsening of his weakness and this was then discontinued. He should not have this restarted again in the future. (4) Allergic rhinitis SNOMED Code(s): 36608132 ICD Code: J30.9 - ALLERGIC RHINITIS, UNSPECIFIED Status: Chronic Current Visit: Yes Problem Details: Flonase was continued. Qualifiers: Allergic rhinitis trigger: unspecified Allergic rhinitis seasonality: seasonal Qualified Code(s): J30.2 - Other seasonal allergic rhinitis (5) Constipation SNOMED Code(s): 94302229 ICD Code: K59.00 - CONSTIPATION, UNSPECIFIED Status: Chronic Current Visit: Yes Problem Details: His usual regimen was continued without incident. Qualifiers: Constipation type: unspecified constipation type Qualified Code(s): K59.00 - Constipation, unspecified - Patient Summary/Data Operative Procedure(s) Performed: none Complications: none Consults: Consultations 07/11/16 12:10 PT Evaluation and Treatment [CONS] Routine 07/12/16 10:08 OT Evaluation and Treatment [CONS] Routine Labs Pending at D/C: none Recommended Follow-up Testing/Procedures: none Planned Operative Procedure(s) after DC: none Hospital Course: Please see details under problems above. He was treated by physical therapy and made significant improvements in his functional status. He was felt stable for dismissal home on 08/05 and will follow-up with neurology as scheduled as an outpatient. - Patient Instructions Diet: Usual Diet as Tolerated Activity: As Tolerated Showering/Bathing: May Shower Notify Provider of: Fever, Increased Pain, Swelling and Redness, Drainage, Nausea and/or Vomiting - Discharge Plan Home Medications: Home Meds Acetaminophen 650 mg PO Q4H PRN 04/22/16 [History] Docusate Sodium [Colace] 100 mg PO DAILY 04/22/16 [History] Cholecalciferol (Vitamin D3) [Vitamin D3] 4,000 unit PO DAILY 05/31/16 [History] Fluticasone Propionate [Flonase] 1 spray NASBOTH DAILY 05/31/16 [History] Multivits,Ca,Minerals/Iron/FA [Thera-M] 1 tab PO DAILY 05/31/16 [History] Ascorbic Acid 500 mg PO DAILY 07/11/16 [History] Bisacodyl [Dulcolax] 10 mg PO DAILY PRN 07/11/16 [History] Cyanocobalamin (Vitamin B12) [Vitamin B12] 500 mcg PO BID 07/11/16 [History] Docusate Sodium [Enemeez] 283 mg RC BID PRN 07/11/16 [History] Sennosides/Docusate Sodium [Senna S Tablet] 2 tab PO BEDTIME PRN 07/11/16 [ History] - Discharge Summary/Plan Comment DC Time >30 min.: No - General Info Date of Service: 08/05/16 Subjective Update: Reports he is doing well. Is hopeful for dismissal today. At his baseline functional status. Hospital bed was delivered yesterday. - Review of Systems General: Reports: No Symptoms HEENT: Reports: no symptoms Pulmonary: Reports: no symptoms Cardiovascular: Reports: No Symptoms Gastrointestinal: Reports: No symptoms Genitourinary: Reports: no symptoms Musculoskeletal: Reports: no symptoms Skin: Reports: no symptoms - Patient Data Vitals - Most Recent: Last Vital Signs Temp 36.1 C 08/05/16 06:00 Pulse 64 08/04/16 06:00 Resp 20 08/05/16 06:00 BP 128/83 08/05/16 06:00 Pulse Ox 100 08/05/16 06:00 Weight - Most Recent: 117.027 kg I&O - Last 24 hours: Intake & Output 08/04/16 08/05/16 08/05/16 22:59 06:59 14:59 Intake Total 120 Balance 120 Med Orders - Current: Current Medications Acetaminophen (Tylenol) 650 mg PO Q4H PRN PRN Reason: Pain (mild 1-3) Last Admin: 07/30/16 22:41 Dose: 650 mg Cholecalciferol (Vitamin D3) 4,000 units PO DAILY [facility] Last Admin: 08/05/16 07:38 Dose: 4,000 units Cyanocobalamin (Vitamin B12) 500 mcg PO BID [facility] Last Admin: 08/05/16 07:38 Dose: 500 mcg Fluticasone Propionate (Flonase) 0 gm NASBOTH DAILY [facility] Last Admin: 08/05/16 07:39 Dose: 1 spray Magnesium Hydroxide (Milk Of Magnesia) 30 ml PO DAILY PRN PRN Reason: Constipation Last Admin: 08/04/16 07:39 Dose: 30 ml Polyethylene Glycol (Miralax) 17 gm PO DAILY [facility] Last Admin: 08/05/16 07:38 Dose: 17 gm Senna/Docusate Sodium (Senna Plus) 1 tab PO BID [facility] Last Admin: 08/05/16 07:38 Dose: 1 tab Discontinued Medications Ascorbic Acid (Vitamin C) 500 mg PO DAILY [facility] Bisacodyl (Dulcolax) 10 mg PO DAILY PRN PRN Reason: Constipation Cyanocobalamin (Vitamin B12) 500 mcg PO BID [facility] Docusate Sodium (Colace) 100 mg PO DAILY [facility] Last Admin: 07/16/16 08:27 Dose: 100 mg Methylprednisolone Sodium Succinate 1,000 mg/ Sodium Chloride 108 mls @ 200 mls /hr IV DAILY [facility] Stop: 08/01/16 08:33 Last Admin: 08/01/16 08:28 Dose: 200 mls/hr Multivitamins/Minerals (Thera M Plus) 1 tab PO DAILY [facility] Non-Formulary Medication (Container,Empty [Enema Bottle]) 283 mg RECTAL BID PRN PRN Reason: Constipation Oxybutynin Chloride (Oxybutynin Er) 5 mg PO BEDTIME [facility] Last Admin: 07/29/16 21:11 Dose: Not Given Senna/Docusate Sodium (Senna Plus) 2 tab PO BEDTIME PRN PRN Reason: Constipation Sodium Biphosphate/Sodium Phosphate (Fleet Enema) 133 ml RECTAL ONETIME ONE Stop: 07/16/16 08:45 Last Admin: 07/16/16 09:29 Dose: 1 enema Sodium Biphosphate/Sodium Phosphate (Fleet Enema) 133 ml RECTAL ONETIME ONE Stop: 07/22/16 12:50 Last Admin: 07/22/16 15:37 Dose: 1 each Sodium Biphosphate/Sodium Phosphate (Fleet Enema) 133 ml RECTAL ONETIME ONE Stop: 07/23/16 08:04 Last Admin: 07/23/16 09:18 Dose: Not Given Vitamin B Complex (Balanced B-50) 1 each PO BID [facility] - Exam General: Reports: alert, cooperative, no acute distress HEENT: Reports: Mucous membr. moist/pink Neck: Reports: supple, no thyromegaly. Denies: lymphadenopathy Lungs: Reports: Clear to auscultation, Normal respiratory effort Cardiovascular: Reports: Regular Rate, Regular Rhythm, No Murmurs Abdomen: Reports: bowel sounds present, soft, no tenderness, no distension Extremities: Reports: no edema, normal pulses Skin: Reports: warm, dry, intact Neurological: Reports: other (at baseline) *Q Meaningful Use (DIS) - VTE *Q VTE Criteria *Q: VTE Anticoagulation Contraindications: Med/tx not indicated/need - Stroke *Q Stroke Criteria *Q: - AMI *Q AMI Criteria *Q:
== END 2016-08-05 14:20 | disposition home or self-care (01) | DRG 60 ==
LOC: VM.MS 11:26
PROVIDERS: ADMIT Family Medicine; ATTEND Family Medicine
DX: G35 Multiple sclerosis (principal); R53.1 Weakness; Z99.3 Dependence on wheelchair; N31.9 Neuromuscular dysfunction of bladder, unspecified; N39.498 Other specified urinary incontinence; J30.9 Allergic rhinitis, unspecified; K59.00 Constipation, unspecified; Z79.899 Other long term (current) drug therapy; Z88.1 Allergy status to other antibiotic agents
CPT/HCPCS: 94760; 97110-GO; 97110-GP; 97161-GP; 97165-GO; 97530-GP; 97602-GP; A9270-GY; J2930; J7050

== ENCOUNTER 2016-09-19 11:31 | Emergency (ER) | payer MEDICARE, MEDICAID ==
--- NOTE | 2016-09-19 11:49 | EDM.PDOC ---
ED HPI GENERAL MEDICAL PROBLEM - General Chief Complaint: General Stated Complaint: weakness and watery diarrhea since 11 pm Time Seen by Provider: 09/19/16 11:45 Source of Information: Reports: Patient, EMS, RN History Limitations: Reports: No Limitations - History of Present Illness INITIAL COMMENTS - FREE TEXT/NARRATIVE: crampy generalized abdominal pain for 2 1/2 weeks, now with worsening weakness and profuse watery malodorous diarrhea since 11 pm Onset: Gradual Onset Date: 09/05/16 Duration: Week(s):, Getting Worse Location: Reports: Abdomen Quality: Reports: Other (crampy abdominal pain with bloating, now with diarrhea) Severity: Moderate Improves with: Reports: None Worsens with: Reports: Eating Associated Symptoms: Reports: Weakness. Denies: Confusion, Chest Pain, Cough, Fever/Chills, Nausea/Vomiting, Shortness of Breath - Related Data Allergies Allergy/AdvReac Type Severity Reaction Status Date / Time ceftriaxone sodium Allergy Rash Verified 07/11/16 12:05 [From Jenelle] Home Meds: Home Meds Acetaminophen 650 mg PO Q4H PRN 04/22/16 [History] Docusate Sodium [Colace] 100 mg PO DAILY 04/22/16 [History] Cholecalciferol (Vitamin D3) [Vitamin D3] 4,000 unit PO DAILY 05/31/16 [History] Fluticasone Propionate [Flonase] 1 spray NASBOTH DAILY 05/31/16 [History] Multivits,Ca,Minerals/Iron/FA [Thera-M] 1 tab PO DAILY 05/31/16 [History] Ascorbic Acid 500 mg PO DAILY 07/11/16 [History] Bisacodyl [Dulcolax] 10 mg PO DAILY PRN 07/11/16 [History] Cyanocobalamin (Vitamin B12) [Vitamin B12] 500 mcg PO BID 07/11/16 [History] Docusate Sodium [Enemeez] 283 mg RC BID PRN 07/11/16 [History] Sennosides/Docusate Sodium [Senna S Tablet] 2 tab PO BEDTIME PRN 07/11/16 [ History] Past Medical History - Past Health History Medical/Surgical History: Denies Medical/Surgical History HEENT History: Reports: None Cardiovascular History: Reports: None Respiratory History: Reports: None Gastrointestinal History: Reports: None Genitourinary History: Reports: Neurogenic Bladder Musculoskeletal History: Reports: None Other Musculoskeletal History: MS dx 2000 with recent exacerbation Neurological History: Reports: MS Psychiatric History: Reports: None Endocrine/Metabolic History: Reports: None Hematologic History: Reports: None Immunologic History: Reports: None Oncologic (Cancer) History: Reports: None Dermatologic History: Reports: None - Infectious Disease History Infectious Disease History: Reports: None - Past Surgical History Neurological Surgical History: Reports: None Social & Family History - Family History Family Medical History: Noncontributory HEENT: Reports: Glaucoma Cardiac: Reports: [place] : Reports: Dialysis Endocrine/Metabolic: Reports: Diabetes, type II - Tobacco Use Smoking Status *Q: Never Smoker Second Hand Smoke Exposure: No - Caffeine Use Caffeine Use: Reports: None Caffeine Use Comment: green tea - Alcohol Use Days Per Week of Alcohol Use: 0 - Recreational Drug Use Recreational Drug Use: No - Living Situation & Occupation Living situation: Reports: Alone Occupation: Disabled ED ROS GENERAL - Review of Systems Review Of Systems: See Below Constitutional: Reports: Weakness. Denies: Fever, Chills, Night Sweats HEENT: Reports: No Symptoms Respiratory: Reports: No Symptoms. Denies: Shortness of Breath, Pleuritic Chest Pain, Cough Cardiovascular: Reports: No Symptoms. Denies: Chest Pain, Blood Pressure Problem, Dyspnea on Exertion, Orthopnea, PND Endocrine: Reports: No Symptoms GI/Abdominal: Reports: Abdominal Pain, Anorexia, Diarrhea, Decreased Appetite, Distension. Denies: Hematemesis, Hematochezia : Reports: No Symptoms, Other (history of recurrent uti due to neurogenic bladder from MS) Musculoskeletal: Reports: No Symptoms, Other (patient in WC due to MS) Skin: Reports: No Symptoms. Denies: Cyanosis, Jaundice, Pallor Neurological: Reports: Other (in WC due to MS). Denies: Confusion, Dizziness, Headache Psychiatric: Reports: No Symptoms Hematologic/Lymphatic: Reports: No Symptoms Immunologic: Reports: Other (patient is immune suppresssed due to medications for MS) ED EXAM, GENERAL - Physical Exam Exam: See Below Exam Limited By: No Limitations General Appearance: Alert, WD/WN, No Apparent Distress Eye Exam: Bilateral Eye: EOMI, PERRL Ears: Normal External Exam, Normal Canal, Hearing Grossly Normal, Normal TMs Ear Exam: Bilateral Ear: Auricle Normal, Canal Normal, TM normal Nose: Normal Inspection, Normal Mucosa, No Blood Throat/Mouth: Normal Inspection, Normal Lips, Normal Teeth, Normal Oropharynx, Normal Voice, No Airway Compromise Head: Atraumatic, Normocephalic Neck: Normal Inspection, Supple, Non-Tender, Full Range of Motion Respiratory/Chest: No Respiratory Distress, Lungs Clear, Normal Breath Sounds, No Accessory Muscle Use, Chest Non-Tender Cardiovascular: Regular Rate, Rhythm, No Edema, No JVD, No Murmur, No Rub GI/Abdominal: Normal Bowel Sounds, Soft, Distended (generalized soft abdominal distension with BS tympanitic with percussion, tender in mid and lateral abdomen and left upper quadrant to palpation), Tender. No: Guarding, Rebound Rectal (Males) Exam: Other (foul smelling incontinent stool) Back Exam: Normal Inspection. No: CVA Tenderness (R) Extremities: Normal Inspection, Non-Tender, Pedal Edema, Limited Range of Motion Neurological: Alert, Oriented, CN II-XII Intact, Normal Cognition, Other ( unable to ambulate due to MS) Psychiatric: Normal Affect, Normal Mood Skin Exam: Warm, Dry, Intact, Normal Color Lymphatic: No Adenopathy Course - Orders/Labs/Meds Orders: Active Orders 24 hr Category Date Time Status Abdomen Pelvis w Cont [CT] Stat Exams 09/19/16 11:50 Taken C DIFFICILE TOXIN BY PCR [MREF] Stat Lab 09/19/16 12:46 Received Pantoprazole [ProTONIX IV] Med 09/19/16 13:00 Active 40 mg IVPUSH Q12H Sodium Chloride 0.9% [Normal Saline] 100 ml Med 09/19/16 12:45 Active IV ASDIRECTED Sodium Chloride 0.9% [Saline Flush] Med 09/19/16 11:54 Active 10 ml FLUSH ASDIRECTED PRN Saline Lock Insert [OM.PC] Routine Oth 09/19/16 11:54 Ordered Medication Orders Sodium Chloride (Normal Saline) 100 mls @ 3 mls/sec IV ASDIRECTED ORAL Last Admin: 09/19/16 13:50 Dose: 3 mls/sec Pantoprazole Sodium (Protonix Iv) 40 mg IVPUSH Q12H [facility] Last Admin: 09/19/16 13:04 Dose: 40 mg Sodium Chloride (Saline Flush) 10 ml FLUSH ASDIRECTED PRN PRN Reason: Keep Vein Open Last Admin: 09/19/16 11:45 Dose: 10 ml Labs: Laboratory Tests 09/19/16 09/19/16 09/19/16 Range/Units 12:22 12:22 12:45 WBC 11.5 H (4.0-10.0) x10^3/uL RBC 4.50 (4.5-6.0) x10^6/uL Hgb 13.6 L (14.0-18.0) g/dL Hct 41.5 (40.0-52.0) % MCV 92.2 (78.0-93.0) fL MCH 30.2 (26.0-32.0) pg MCHC 32.8 (32.0-36.0) g/dL RDW Coeff of [place] 13.9 (10.0-15.0) % Plt Count 229 (130-400) x10^3/uL Neut % (Auto) 87.5 H (50.0-80.0) % Lymph % (Auto) 4.2 L (25.0-50.0) % [place] % (Auto) 6.5 (2.0-11.0) % Eos % (Auto) 1.5 (0.0-4.0) % Baso % (Auto) 0.3 (0.2-1.2) % Sodium 145 (136-145) mmol/L Potassium 3.6 (3.5-5.1) mmol/L Chloride 110 H (98-107) mmol/L Carbon Dioxide 27 (21-32) mmol/L BUN 14 (7-18) mg/dL Creatinine 0.9 (0.70-1.30) mg/dL Est Cr Clr Drug Dosing TNP Estimated GFR (MDRD) > 60 Glucose 99 (74-106) mg/dL Calcium 8.3 L (8.5-10.1) mg/dL Corrected Calcium 8.78 (8.5-10.1) mg/dL Total Bilirubin 0.5 (0.2-1.0) mg/dL AST 15 (15-37) U/L ALT 20 (16-63) U/L Alkaline Phosphatase 60 (46-116) U/L Total Protein 6.3 L (6.4-8.2) g/dL Albumin 3.4 (3.4-5.0) g/dL Globulin 2.9 Albumin/Globulin Ratio 1.17 Urine Color Dark yellow H (YELLOW) Urine Appearance Slightly cloudy H (CLEAR) Urine pH 5.5 (5.0-8.0) Ur Specific [place] >=1.030 Urine Protein Trace H (NEGATIVE) mg/dL Urine Glucose (UA) Negative (NEGATIVE) mg/dL Urine Ketones Trace H (NEGATIVE) mg/dL Urine Occult Blood Negative (NEGATIVE) Urine Nitrite Negative (NEGATIVE) Urine Bilirubin Small H (NEGATIVE) Urine Urobilinogen 0.2 (0.2) EU/dL Ur Leukocyte Esterase Negative (NEGATIVE) Urine RBC 0-5 (NOT SEEN) /HPF Urine WBC 10-20 H (NOT SEEN) /HPF Ur Squamous Epith Cells Few H (NEGATIVE) /HPF Amorphous Sediment Many Urine Bacteria Few H (NEGATIVE) /HPF Urine Mucus Rare H (NEGATIVE) /LPF Meds: Medications Generic Name Dose Route Start Last Admin Trade Name Freq PRN Reason Stop Dose Admin Sodium Chloride 100 mls @ 3 mls/sec 09/19/16 12:45 09/19/16 13:50 Normal Saline IV 3 mls/sec ASDIRECTED ORAL Administration Pantoprazole Sodium 40 mg 09/19/16 13:00 09/19/16 13:04 Protonix Iv IVPUSH 40 mg Q12H ORAL Administration Sodium Chloride 10 ml 09/19/16 11:54 09/19/16 11:45 Saline Flush FLUSH 10 ml ASDIRECTED PRN Administration Keep Vein Open Discontinued Medications Generic Name Dose Route Start Last Admin Trade Name Freq PRN Reason Stop Dose Admin Sodium Chloride 1,000 mls @ 500 mls/hr 09/19/16 11:54 09/19/16 11:45 Normal Saline IV 09/19/16 13:53 500 mls/hr ONETIME ONE Administration Iopamidol 100 ml 09/19/16 12:42 09/19/16 13:49 Isovue-300 (61%) IVPUSH 09/19/16 12:43 100 ml ONETIME ONE Administration - Radiology Interpretation Free Text/Narrative:: mild colitis involving distal sigmoid colon and adjacent rectum per radiology CT Results Date: 09/19/16 - Re-Assessments/Exams Free Text/Narrative Re-Assessment/Exam: 09/19/16 15:10 Patient seen and evaluated in ER. Labs and diagnostics done as above. CT showed mild colitis distal sigmoid colon and rectum. Given one liter of normal saline and 40 mg IV protonix. Sample collected for c-diff due to multiple incontinent foul smelling stools. Discussed case with PCP Dr Ember Lopez who recomended transfer to [facility] as patient hospitalizations are usually prolonged. will contact [facility] as pt is agreeable to transfer. Departure - Departure Time of Disposition: 15:38 Disposition: DC/Tfer to Acute Hospital 02 Condition: good Clinical Impression: Colitis due to Clostridium difficile, Weakness generalized, Multiple sclerosis - Discharge Information Forms: [facility] - Discussed Case With (1) Discussed Case With (1): Other (PCP Dr Ember Lopez) - Discussed Case With (2) Discussed Case With (2): Admitting Provider ([facility] in [place]/ Hospitalist service) - My Orders Last 24 Hours: My Active Orders 09/19/16 11:50 Abdomen Pelvis w Cont [CT] Stat 09/19/16 11:54 Sodium Chloride 0.9% [Saline Flush] 10 ml FLUSH ASDIRECTED PRN Saline Lock Insert [OM.PC] Routine 09/19/16 12:45 Sodium Chloride 0.9% [Normal Saline] 100 ml IV ASDIRECTED 09/19/16 12:46 C DIFFICILE TOXIN BY PCR [MREF] Stat 09/19/16 13:00 Pantoprazole [ProTONIX IV] 40 mg IVPUSH Q12H - Assessment/Plan Last 24 Hours: My Active Orders 09/19/16 11:50 Abdomen Pelvis w Cont [CT] Stat 09/19/16 11:54 Sodium Chloride 0.9% [Saline Flush] 10 ml FLUSH ASDIRECTED PRN Saline Lock Insert [OM.PC] Routine 09/19/16 12:45 Sodium Chloride 0.9% [Normal Saline] 100 ml IV ASDIRECTED 09/19/16 12:46 C DIFFICILE TOXIN BY PCR [MREF] Stat 09/19/16 13:00 Pantoprazole [ProTONIX IV] 40 mg IVPUSH Q12H Assessment:: sigmoid and rectal colitis, c-diff suspected generalized abdominal pain, distension and anorexia for two weeks Multiple sclerosis Plan: Discussed case with Dr Lopez who recomended hs[facility]italization at [facility]. Patient agreeable. Contacted [facility] in [place].Patient accepted in Transfer by Dr Hodge. Will be transported via ALS ambulance in stable condition.
[2016-09-19] MEDS ORDERED: Sodium Chloride 0.9% 10 ML Syringe FLUSH PRN (11:54)
[2016-09-19] MEDS ORDERED: Sodium Chloride 0.9% 1,000 ML IV ONE (11:54)
[2016-09-19] MEDS ORDERED: Iopamidol 612 MG/ML 100 ML Bottle IVPUSH ONE (12:42)
[2016-09-19] MEDS ORDERED: Sodium Chloride 0.9% 100 ML IV SCH (12:45)
[2016-09-19 12:48] LABS: CHLORIDE,CL 110 mmol/L (98-107); SODIUM,NA 145 mmol/L (136-145)
[2016-09-19] MEDS ORDERED: Pantoprazole 40 MG Vial IVPUSH SCH (13:00)
[2016-09-19 15:36] VITALS: BP 124/82
== END 2016-09-19 16:58 | disposition short-term general hospital (02) ==
LOC: VM.ED 11:31
DX: A04.7 Enterocolitis due to Clostridium difficile (principal); G35 Multiple sclerosis; Z88.8 Allergy status to other drugs, medicaments and biological substances; Z79.899 Other long term (current) drug therapy
CPT/HCPCS: 36415; 74177; 80053; 81001; 85025; 87493; 96361; 96374; 99284; 99285; C9113; J7040; J7050; Q9967

== ENCOUNTER 2016-09-28 07:26 | Observation (INO) | payer MEDICARE, MEDICAID ==
[2016-09-28] MEDS ORDERED: Sodium Chloride 0.9% 10 ML Syringe FLUSH PRN (08:22)
--- NOTE | 2016-09-28 08:48 | EDM.PDOC ---
ED HPI GENERAL MEDICAL PROBLEM - General Chief Complaint: General Stated Complaint: FELL Time Seen by Provider: 09/28/16 07:37 Source of Information: Reports: Patient History Limitations: Reports: No Limitations - History of Present Illness INITIAL COMMENTS - FREE TEXT/NARRATIVE: Patient was recently seen last week for colitis and started on Flagyl and Cipro. He did have a negative C-Diff result. He is brought in the AM via EMS due to increased weakness. He remembers having pain in his right knee, he blacked out and found himself on the floor. He states he has been having increasing black out spells for some time but has not relayed this to anyone, or had them investigated. He does has MS history. He denies hitting his head. He has no other complaints today. He is a patient of Dr. Mcqueen. He has appointment for Dr. Mcqueen tomorrow, and an appointment with neurology on the of this month. He is having regular bowel movements after starting the antibiotics. Onset: Gradual Onset Date: 09/28/16 Onset Time: 07:00 Duration: Chronic, Getting Worse Quality: Reports: Ache Severity: Mild Associated Symptoms: Reports: No Other Symptoms Knee Pain Score (Numeric/FACES): 2 - Related Data Allergies Allergy/AdvReac Type Severity Reaction Status Date / Time ceftriaxone sodium Allergy Rash Verified 09/28/16 08:05 [From Rocephin] Home Meds: Home Meds Acetaminophen 650 mg PO Q4H PRN 04/22/16 [History] Docusate Sodium [Colace] 100 mg PO DAILY 04/22/16 [History] Cholecalciferol (Vitamin D3) [Vitamin D3] 4,000 unit PO DAILY 05/31/16 [History] Fluticasone Propionate [Flonase] 1 spray NASBOTH DAILY 05/31/16 [History] Multivits,Ca,Minerals/Iron/FA [Thera-M] 1 tab PO DAILY 05/31/16 [History] Ascorbic Acid 500 mg PO Q3D 07/11/16 [History] Bisacodyl [Dulcolax] 10 mg PO DAILY PRN 07/11/16 [History] Cyanocobalamin (Vitamin B12) [Vitamin B12] 1,000 mcg PO DAILY 07/11/16 [History] Sennosides/Docusate Sodium [Senna S Tablet] 2 tab PO BEDTIME PRN 07/11/16 [ History] Past Medical History - Past Health History Medical/Surgical History: Denies Medical/Surgical History HEENT History: Reports: None Cardiovascular History: Reports: None Respiratory History: Reports: None Gastrointestinal History: Reports: None Genitourinary History: Reports: Neurogenic Bladder Musculoskeletal History: Reports: None Other Musculoskeletal History: MS dx 2000 with recent exacerbation Neurological History: Reports: MS Psychiatric History: Reports: None Endocrine/Metabolic History: Reports: None Hematologic History: Reports: None Immunologic History: Reports: None Oncologic (Cancer) History: Reports: None Dermatologic History: Reports: None - Infectious Disease History Infectious Disease History: Reports: None - Past Surgical History Neurological Surgical History: Reports: None Social & Family History - Family History Family Medical History: Noncontributory HEENT: Reports: Glaucoma Cardiac: Reports: [place] : Reports: Dialysis Endocrine/Metabolic: Reports: Diabetes, type II - Tobacco Use Smoking Status *Q: Never Smoker Second Hand Smoke Exposure: No - Caffeine Use Caffeine Use: Reports: None Caffeine Use Comment: green tea - Alcohol Use Days Per Week of Alcohol Use: 0 - Recreational Drug Use Recreational Drug Use: No - Living Situation & Occupation Living situation: Reports: Alone Occupation: Disabled ED ROS GENERAL - Review of Systems Review Of Systems: ROS reveals no pertinent complaints other than HPI. ED EXAM, GENERAL - Physical Exam Exam: See Below Exam Limited By: No Limitations General Appearance: Alert, WD/WN, No Apparent Distress Eye Exam: Bilateral Eye: EOMI, PERRL Ears: Normal TMs Nose: Normal Inspection Throat/Mouth: Normal Inspection, Normal Oropharynx Head: Atraumatic, Normocephalic Neck: Normal Inspection, Supple, Non-Tender, Full Range of Motion, Limited Range of Motion Respiratory/Chest: No Respiratory Distress, Lungs Clear, Normal Breath Sounds Cardiovascular: Normal Peripheral Pulses, Regular Rate, Rhythm, No Edema GI/Abdominal: Normal Bowel Sounds, Soft, Non-Tender Back Exam: Normal Inspection Extremities: Normal Inspection, Normal Range of Motion, No Pedal Edema, Other ( lateral right knee tender to palpation) Neurological: Alert, Oriented, Normal Cognition, Sensory/Motor Deficit ( weakness to bilateral legs related to MS) Psychiatric: Normal Affect, Normal Mood Skin Exam: Warm, Dry, Intact Lymphatic: No Adenopathy Course - Vital Signs Last Recorded V/S: Last Vital Signs Temp 37.2 C 09/28/16 07:30 Pulse 67 09/28/16 07:30 Resp 16 09/28/16 07:30 BP 140/88 09/28/16 07:30 Pulse Ox 97 09/28/16 07:30 - Orders/Labs/Meds Orders: Active Orders 24 hr Category Date Time Status Patient Status [ADT] Routine ADT 09/28/16 08:41 Ordered C-REACTIVE PROTEIN [CHEM] Stat Lab 09/28/16 08:35 Received CBC WITH AUTO DIFF [HEME] Stat Lab 09/28/16 08:35 Received COMPREHENSIVE METABOLIC PN,CMP [CHEM] Stat Lab 09/28/16 08:35 Received UA W/MICROSCOPIC [URIN] Stat Lab 09/28/16 08:22 Uncollected Sodium Chloride 0.9% [Saline Flush] Med 09/28/16 08:22 Active 10 ml FLUSH ASDIRECTED PRN Saline Lock Insert [OM.PC] Routine Oth 09/28/16 08:22 Ordered Medication Orders Sodium Chloride (Saline Flush) 10 ml FLUSH ASDIRECTED PRN PRN Reason: Keep Vein Open Meds: Medications Generic Name Dose Route Start Last Admin Trade Name Freq PRN Reason Stop Dose Admin Sodium Chloride 10 ml 09/28/16 08:22 Saline Flush FLUSH ASDIRECTED PRN Keep Vein Open - Re-Assessments/Exams Free Text/Narrative Re-Assessment/Exam: 09/28/16 08:[address] Mcqueen to discuss admission with her. She will see the patient on the floor. Admission to inpatient for her to follow. Departure - Departure Time of Disposition: 09:15 Disposition: Admitted As Inpatient 65 Condition: Fair Clinical Impression: Multiple sclerosis, Weakness generalized - Discharge Information Forms: ED Department Discharge - Problem List & Annotations (1) Fall SNOMED Code(s): 8527320, 046247442 Code(s): W19.XXXA - UNSPECIFIED FALL, INITIAL ENCOUNTER Status: Acute Priority: Medium Current Visit: No Qualifiers: Encounter type: initial encounter Qualified Code(s): W19.XXXA - Unspecified fall, initial encounter (2) Weakness generalized SNOMED Code(s): 39685225 Code(s): R53.1 - WEAKNESS Status: Acute Current Visit: Yes (3) Multiple sclerosis SNOMED Code(s): 62332585 Code(s): G35 - MULTIPLE SCLEROSIS Status: Acute Priority: Medium Current Visit: No - Problem List Review Problem List Initiated/Reviewed/Updated: Yes - My Orders Last 24 Hours: My Active Orders 09/28/16 08:22 UA W/MICROSCOPIC [URIN] Stat Sodium Chloride 0.9% [Saline Flush] 10 ml FLUSH ASDIRECTED PRN Saline Lock Insert [OM.PC] Routine 09/28/16 08:35 C-REACTIVE PROTEIN [CHEM] Stat CBC WITH AUTO DIFF [HEME] Stat COMPREHENSIVE METABOLIC PN,CMP [CHEM] Stat 09/28/16 08:41 Patient Status [ADT] Routine - Assessment/Plan Last 24 Hours: My Active Orders 09/28/16 08:22 UA W/MICROSCOPIC [URIN] Stat Sodium Chloride 0.9% [Saline Flush] 10 ml FLUSH ASDIRECTED PRN Saline Lock Insert [OM.PC] Routine 09/28/16 08:35 C-REACTIVE PROTEIN [CHEM] Stat CBC WITH AUTO DIFF [HEME] Stat COMPREHENSIVE METABOLIC PN,CMP [CHEM] Stat 09/28/16 08:41 Patient Status [ADT] Routine Assessment:: Weakness Multiple Sclerosis Plan: Admission to inpatient with Dr. Charisse ibarra.
[2016-09-28 09:01] LABS: CHLORIDE,CL 107 mmol/L (98-107); SODIUM,NA 143 mmol/L (136-145)
[2016-09-28] MEDS ORDERED: Bisacodyl 5 MG Tab PO PRN (10:41)
--- NOTE | 2016-09-28 10:44 | PCM.HP ---
H&P History of Present Illness - General Date of Service: 09/28/16 Source of Information: Patient History Limitations: Reports: No Limitations - History of Present Illness Initial Comments - Free Text/Narative: Mr. Epps is a 41 yo male with PMH of MS who presented to the ED today via EMS for evaluation following a fall in his bathroom. He got up overnight to go have a bowel movement and was using his bars to stand up when he suddenly "blacked out" and fell. He did hit his left leg against the wall but denies any other injuries. He was unable to get up on his own and was pounding on the floor for about 5 hours before anyone found him. He denies any preceding symptoms of chest pain, palpitations, lightheadedness, shortness of breath, nausea, or vomiting. He could not tell that this was going to occur. He denies biting his tongue. He was incontinent of urine but not of stool. He has been having episodes like this recurrently over the past year but had not had one for the past 6 months. He can never tell that they are going to occur. Although this one occurred with position change, that is not usually the case and he usually is sitting in his chair watching TV. He states that he will lose about 2-3 minutes of time before regaining consciousness. He knows how long based on the fact that he is watching a TV show at the time. He denies any confusion after the episodes. Although he did not lose control of his stool this time, he has in the past. He has never mentioned this to anyone as it always resolved and he was not concerned about it. He denies any changes in his multiple sclerosis-type symptoms and is actually doing quite well from that standpoint. He has not had any URI symptoms nor any fever or chills recently. He has been eating and drinking well with no recent vomiting or diarrhea. He was in the hospital last week for colitis but this has resolved and he is doing well from this standpoint. Knee Pain Score (Numeric/FACES): 2 - Related Data Allergies/Adverse Reactions: Allergies Allergy/AdvReac Type Severity Reaction Status Date / Time ceftriaxone sodium Allergy Rash Verified 09/28/16 08:05 [From Rocephin] Home Medications: Home Meds Acetaminophen 650 mg PO Q4H PRN 04/22/16 [History] Docusate Sodium [Colace] 100 mg PO DAILY 04/22/16 [History] Cholecalciferol (Vitamin D3) [Vitamin D3] 4,000 unit PO DAILY 05/31/16 [History] Fluticasone Propionate [Flonase] 1 spray NASBOTH DAILY 05/31/16 [History] Multivits,Ca,Minerals/Iron/FA [Thera-M] 1 tab PO DAILY 05/31/16 [History] Ascorbic Acid 500 mg PO Q3D 07/11/16 [History] Bisacodyl [Dulcolax] 10 mg PO DAILY PRN 07/11/16 [History] Cyanocobalamin (Vitamin B12) [Vitamin B12] 1,000 mcg PO DAILY 07/11/16 [History] Sennosides/Docusate Sodium [Senna S Tablet] 2 tab PO BEDTIME PRN 07/11/16 [ History] Past Medical History - Past Health History Medical/Surgical History: Denies Medical/Surgical History HEENT History: Reports: None Cardiovascular History: Reports: None Respiratory History: Reports: None Gastrointestinal History: Reports: None Genitourinary History: Reports: Neurogenic Bladder Musculoskeletal History: Reports: None Other Musculoskeletal History: MS dx 2000 with recent exacerbation Neurological History: Reports: MS Psychiatric History: Reports: None Endocrine/Metabolic History: Reports: None Hematologic History: Reports: None Immunologic History: Reports: None Oncologic (Cancer) History: Reports: None Dermatologic History: Reports: None - Infectious Disease History Infectious Disease History: Reports: None - Past Surgical History Neurological Surgical History: Reports: None Social & Family History - Family History HEENT: Reports: Glaucoma Cardiac: Reports: NE : Reports: Dialysis Endocrine/Metabolic: Reports: Diabetes, type II - Tobacco Use Smoking Status *Q: Never Smoker Second Hand Smoke Exposure: No - Caffeine Use Caffeine Use: Reports: None Caffeine Use Comment: green tea - Alcohol Use Alcohol Use History: No Days Per Week of Alcohol Use: 0 Alcohol Use in Last Twelve Months: No - Recreational Drug Use Recreational Drug Use: No - Living Situation & Occupation Living situation: Reports: Alone (considering transition to a SNF but is not ready for that yet) Occupation: Disabled H&P Review of Systems - Review of Systems: Review Of Systems: See Below General: Reports: No Symptoms HEENT: Reports: No Symptoms Pulmonary: Reports: No Symptoms Cardiovascular: Reports: Syncope. Denies: Chest Pain, Palpitations, Lightheadedness Gastrointestinal: Reports: No Symptoms Genitourinary: Reports: No Symptoms Musculoskeletal: Reports: No Symptoms Skin: Reports: No Symptoms Neurological: Reports: No Symptoms Hematologic/Lymphatic: Reports: No Symptoms Exam - Exam Exam: See Below - Vital Signs Vital Signs: Last Vital Signs Temp 37.2 C 09/28/16 07:30 Pulse 67 09/28/16 07:30 Resp 16 09/28/16 07:30 BP 140/88 09/28/16 07:30 Pulse Ox 97 09/28/16 07:30 Weight: 123.831 kg - Exam General: Alert, Cooperative. No: Mild Distress, Moderate Distress, Severe Distress HEENT: Conjunctiva Clear, EOMI, Hearing Intact, Mucosa Moist & [place], Pupils Equal, Pupils Reactive Neck: Supple, Trachea Midline. No: Lymphadenopathy, Thyromegaly Lungs: Clear to Auscultation, Normal Respiratory Effort Cardiovascular: Regular Rate, Regular Rhythm, Normal S1, Normal S2. No: Systolic Murmur, Diastolic Murmur Abdomen: Normal Bowel Sounds, Soft. No: Organomegaly, Distention, Tenderness Extremities: Normal Inspection, Normal Pulses Skin: Warm, Dry, Intact Neurological: Other (Chronic spasticity of the right leg with resultant weakness ; no change from baseline neurologic exam) - Patient Data Result Diagrams: 09/28/16 08:35 09/28/16 08:35 *Q Meaningful Use (ADM) - VTE *Q VTE Criteria *Q: VTE Anticoagulation Contraindications: Med/TX not Indicated/Need - Stroke *Q Stroke Criteria *Q: - AMI *Q AMI Criteria *Q: - Problem List (1) Syncope SNOMED Code(s): 205527980 ICD Code: R55 - SYNCOPE AND COLLAPSE Status: Acute Current Visit: Yes Problem Details: - The description of events is most consistent with syncope rather than seizure given the fact that he did not have any post-event confusion. That being said, seizure would certainly be considered given his neurologic history. - The abrupt onset of symptoms does raise concern for a possible arrhythmia; although, he does not really have risk factors for this. Differentials would include anemia vs. infection (no symptoms of any infection) vs. valvular disease (no murmur or history of this) vs. dehydration (no history to suggest this) vs. vasovagal (not the typical story for this either). - Will get a resting EKG and then have him on telemetry for 24-48 hours to monitor for any arrhythmia. - Labs obtained in the ED and I will follow-up on those results. - Even though he is low risk based on his age and lack of prior cardiac history , the description is high risk. He also has limited ability to seek help if he was to have recurrence of symptoms; therefore, admission for further work-up is appropriate in this patient. - He will likely need to have an Echocardiogram as an outpatient but I will defer this until after he follows up with neurology and whether they agree with this assessment. Qualifiers: Syncope type: unspecified Qualified Code(s): R55 - Syncope and collapse (2) Fall SNOMED Code(s): 0837332, 569704602 ICD Code: W19.XXXA - UNSPECIFIED FALL, INITIAL ENCOUNTER Status: Acute Current Visit: No Problem Details: - Related to syncope. - No injuries noted. Qualifiers: Encounter type: initial encounter Qualified Code(s): W19.XXXA - Unspecified fall, initial encounter (3) Multiple sclerosis SNOMED Code(s): 28655699 ICD Code: G35 - MULTIPLE SCLEROSIS Status: Chronic Current Visit: Yes Problem Details: - Recently started new medication. - No evidence of exacerbation at this time. (4) Allergic rhinitis SNOMED Code(s): 34529489 ICD Code: J30.9 - ALLERGIC RHINITIS, UNSPECIFIED Status: Chronic Current Visit: No Problem Details: - Continue flonase. Qualifiers: Allergic rhinitis trigger: unspecified Allergic rhinitis seasonality: seasonal (5) Constipation SNOMED Code(s): 96579691 ICD Code: K59.00 - CONSTIPATION, UNSPECIFIED Status: Chronic Current Visit: No Problem Details: - Continue home regimen. Qualifiers: Constipation type: unspecified constipation type Qualified Code(s): K59.00 - Constipation, unspecified Problem List Initiated/Reviewed/Updated: Yes Orders Last 24hrs: Active Orders 24 hr Category Date Time Status Cardiac Monitoring [RC] CONTINUOUS Care 09/28/16 10:40 Ordered Notify Provider Vital Signs [RC] ASDIRECTED Care 09/28/16 10:40 Ordered Oxygen Therapy [RC] PRN Care 09/28/16 10:39 Ordered Up With Assistance [RC] ASDIRECTED Care 09/28/16 10:39 Ordered VTE/DVT Education [RC] PER UNIT ROUTINE Care 09/28/16 10:39 Ordered Vital Signs [RC] Q4H Care 09/28/16 10:39 Ordered Regular Diet [DIET] Diet 09/28/16 Lunch Ordered Bisacodyl [Dulcolax] Med 09/28/16 10:41 Ordered 10 mg PO DAILY PRN Cholecalciferol (Vitamin D3) [Vitamin D3] Med 09/29/16 08:00 Ordered 4,000 unit PO DAILY Cyanocobalamin (Vitamin B12) [Vitamin B12] Med 09/29/16 08:00 Ordered 1,000 mcg PO DAILY Docusate Sodium [Colace] Med 09/29/16 08:00 Ordered 100 mg PO DAILY Docusate Sodium/Sennosides [Senna Plus] Med 09/28/16 10:41 Ordered 2 tab PO BEDTIME PRN Fluticasone Propionate [Flonase] Med 09/29/16 08:00 Ordered 1 spray NASBOTH DAILY Multivits,Ca,Minerals/Iron/FA [Thera-M] Med 09/29/16 08:00 Ordered 1 tab PO DAILY Anticoagulation Contraindications VTE [AST] Per Unit Oth 09/28/16 10:39 Ordered Routine Resuscitation Status Routine Resus Stat 09/28/16 10:39 Ordered Medication Orders Sodium Chloride (Saline Flush) 10 ml FLUSH ASDIRECTED PRN PRN Reason: Keep Vein Open Assessment/Plan Comment:: 41 yo male admitted for further work-up following a syncopal event resulting in a fall at home. He did not sustain any injuries. Work-up for syncope as above. Will be on telemetry for 24-48 hours. He does not meet inpatient criteria; therefore, he will be admitted under observation. Anticipate dismissal home tomorrow or the following day. YESSICA stockings for VTE prophylaxis - he is at his usual functional status so does not need pharmacologic or SCDs. Code status is full.
[2016-09-29] MEDS ORDERED: Docusate Sodium 100 MG Cap PO SCH (08:00)
[2016-09-29] MEDS ORDERED: Fluticasone Propionate Nasal Spray 16 GM Bottle NASBOTH SCH (08:00)
[2016-09-29] MEDS ORDERED: Cholecalciferol (Vitamin D3) 1,000 Unit Tab PO SCH (08:00)
[2016-09-29] MEDS ORDERED: Multivitamins with Iron/Calcium/Folic Acid/Minerals Tab PO SCH (08:00)
[2016-09-29] MEDS ORDERED: Cyanocobalamin (Vitamin B12) 1,000 MCG Tab PO SCH (08:00)
--- NOTE | 2016-09-29 08:28 | PCM.DCSUM1 ---
Discharge Summary - Hospital Course Brief History: Mr. Epps is a 41 yo male with PMH of MS who presented to the ED via EMS following a fall related to a syncopal event. - Discharge Data Discharge Date: 09/29/16 Discharge Disposition: Home, Self-Care 01 Condition: Good - Discharge Diagnosis/Problem(s) (1) Syncope SNOMED Code(s): 272445937 ICD Code: R55 - SYNCOPE AND COLLAPSE Status: Acute Current Visit: Yes Problem Details: The description of events was most consistent with syncope rather than seizure given the fact that he did not have any post-event confusion. That being said, seizure would certainly be considered given his neurologic history. Labs have been unremarkable, including a troponin that was obtained for minor changes on his ECG. Telemetry was continued for 24 hours and unremarkable. Given infrequent nature of events (every 6 months), it is unlikely that we will capture anything by keeping him here longer on telemetry. Therefore, I will discharge him home to follow-up outpatient. He will see neurology and will ask them to weigh in on whether they think this is syncope vs. seizure and we will guide the work-up from there. Qualifiers: Syncope type: unspecified Qualified Code(s): R55 - Syncope and collapse (2) Fall SNOMED Code(s): 8026964, 056425615 ICD Code: W19.XXXA - UNSPECIFIED FALL, INITIAL ENCOUNTER Status: Acute Current Visit: No Problem Details: Related to syncope. No injuries noted. Qualifiers: Encounter type: initial encounter Qualified Code(s): W19.XXXA - Unspecified fall, initial encounter (3) Multiple sclerosis SNOMED Code(s): 70230190 ICD Code: G35 - MULTIPLE SCLEROSIS Status: Chronic Current Visit: Yes Problem Details: Recently started new medication. No evidence of exacerbation at this time. (4) Allergic rhinitis SNOMED Code(s): 13024056 ICD Code: J30.9 - ALLERGIC RHINITIS, UNSPECIFIED Status: Chronic Current Visit: No Problem Details: Flonase continued. Qualifiers: Allergic rhinitis trigger: unspecified Allergic rhinitis seasonality: seasonal (5) Constipation SNOMED Code(s): 77336175 ICD Code: K59.00 - CONSTIPATION, UNSPECIFIED Status: Chronic Current Visit: No Problem Details: Home regimen continued. Qualifiers: Constipation type: unspecified constipation type Qualified Code(s): K59.00 - Constipation, unspecified - Patient Summary/Data Operative Procedure(s) Performed: none Complications: none Consults: none Labs Pending at D/C: none Recommended Follow-up Testing/Procedures: none Planned Operative Procedure(s) after DC: none Hospital Course: Please see details under problems above. Patient was admitted for monitoring and telemetry. Hospital stay was uncomplicated and without events. - Patient Instructions Diet: Usual Diet as Tolerated Driving: Do Not Drive Showering/Bathing: May Shower Notify Provider of: Fever, Increased Pain, Swelling and Redness, Nausea and/or Vomiting - Discharge Plan Home Medications: Home Meds Acetaminophen 650 mg PO Q4H PRN 04/22/16 [History] Docusate Sodium [Colace] 100 mg PO DAILY 04/22/16 [History] Cholecalciferol (Vitamin D3) [Vitamin D3] 4,000 unit PO DAILY 05/31/16 [History] Fluticasone Propionate [Flonase] 1 spray NASBOTH DAILY 05/31/16 [History] Multivits,Ca,Minerals/Iron/FA [Thera-M] 1 tab PO DAILY 05/31/16 [History] Ascorbic Acid 500 mg PO Q3D 07/11/16 [History] Bisacodyl [Dulcolax] 10 mg PO DAILY PRN 07/11/16 [History] Cyanocobalamin (Vitamin B12) [Vitamin B12] 1,000 mcg PO DAILY 07/11/16 [History] Sennosides/Docusate Sodium [Senna S Tablet] 2 tab PO BEDTIME PRN 07/11/16 [ History] Forms: ED Department Discharge Referrals: Ember Mcqueen MD [Primary Care Provider] - 10/06/16 10:00 am (You have a follow up appt. with Dr. Bebeto Mcqueen on October 06, 2016 at 10 AM) - Discharge Summary/Plan Comment DC Time >30 min.: No - General Info Date of Service: 09/29/16 Subjective Update: Doing well this morning. Has no complaints. Is interested in dismissal home today. No events while here but states these are only occurring about every 6 months. - Review of Systems General: Reports: No Symptoms HEENT: Reports: no symptoms Pulmonary: Reports: no symptoms Cardiovascular: Reports: No Symptoms Gastrointestinal: Reports: No symptoms Genitourinary: Reports: no symptoms Musculoskeletal: Reports: no symptoms Skin: Reports: no symptoms Neurological: Reports: No Symptoms - Patient Data Vitals - Most Recent: Last Vital Signs Temp 36.3 C 09/29/16 05:32 Pulse 64 09/29/16 05:32 Resp 16 09/29/16 05:32 BP 123/76 09/29/16 05:32 Pulse Ox 100 09/29/16 05:32 Weight - Most Recent: 123.831 kg I&O - Last 24 hours: Intake & Output 09/28/16 09/29/16 09/29/16 22:59 06:59 14:59 Intake Total 300 Balance 300 Lab Results - Last 24 hrs: Laboratory Results - last 24 hr 09/28/16 Range/Units 11:30 Urine Color Yellow (YELLOW) Urine Appearance Clear (CLEAR) Urine pH 7.5 (5.0-8.0) Ur Specific [place] 1.015 Urine Protein Negative (NEGATIVE) mg/dL Urine Glucose (UA) Negative (NEGATIVE) mg/dL Urine Ketones Negative (NEGATIVE) mg/dL Urine Occult Blood Negative (NEGATIVE) Urine Nitrite Negative (NEGATIVE) Urine Bilirubin Negative (NEGATIVE) Urine Urobilinogen 0.2 (0.2) EU/dL Ur Leukocyte Esterase Negative (NEGATIVE) Urine RBC 0-5 (NOT SEEN) /HPF Urine WBC Not seen (NOT SEEN) /HPF Ur Squamous Epith Cells Rare (NEGATIVE) /HPF Urine Bacteria Rare (NEGATIVE) /HPF Urine Mucus Rare H (NEGATIVE) /LPF Med Orders - Current: Current Medications Bisacodyl (Dulcolax) 10 mg PO DAILY PRN PRN Reason: Constipation Cholecalciferol (Vitamin D3) 4,000 units PO DAILY [facility] Last Admin: 09/29/16 08:03 Dose: 4,000 units Cyanocobalamin (Vitamin B12) 1,000 mcg PO DAILY [facility] Last Admin: 09/29/16 08:04 Dose: 1,000 mcg Docusate Sodium (Colace) 100 mg PO DAILY [facility] Last Admin: 09/29/16 08:04 Dose: 100 mg Fluticasone Propionate (Flonase) 0 gm NASBOTH DAILY [facility] Last Admin: 09/29/16 08:04 Dose: 2 spray Multivitamins/Minerals (Thera M Plus) 1 tab PO DAILY [facility] Last Admin: 09/29/16 08:04 Dose: 1 tab Senna/Docusate Sodium (Senna Plus) 2 tab PO BEDTIME PRN PRN Reason: Constipation Sodium Chloride (Saline Flush) 10 ml FLUSH ASDIRECTED PRN PRN Reason: Keep Vein Open - Exam General: Reports: alert, cooperative, no acute distress HEENT: Reports: Mucous membr. moist/pink Neck: Reports: supple, no thyromegaly. Denies: lymphadenopathy Lungs: Reports: Clear to auscultation, Normal respiratory effort Cardiovascular: Reports: Regular Rate, Regular Rhythm, No Murmurs Abdomen: Reports: bowel sounds present, soft, no tenderness, no distension Extremities: Reports: no edema, normal pulses Skin: Reports: warm, dry, intact *Q Meaningful Use (DIS) - VTE *Q VTE Criteria *Q: VTE Anticoagulation Contraindications: Med/TX not Indicated/Need - Stroke *Q Stroke Criteria *Q: - AMI *Q AMI Criteria *Q:
[2016-09-29 11:47] VITALS: BP 124/86
== END 2016-09-29 12:25 | disposition home or self-care (01) ==
LOC: VM.ED 07:26 → VM.MS 08:45 → INTOOBSV 08:45
PROVIDERS: ADMIT Family Medicine; ATTEND Family Medicine
DX: R55 Syncope and collapse (principal); G35 Multiple sclerosis; J30.9 Allergic rhinitis, unspecified; K59.00 Constipation, unspecified; R53.1 Weakness; R94.31 Abnormal electrocardiogram [ECG] [EKG]; Z79.899 Other long term (current) drug therapy; Z88.8 Allergy status to other drugs, medicaments and biological substances; Z79.01 Long term (current) use of anticoagulants
CPT/HCPCS: 36415; 80053; 81001; 84484; 85025; 86140; 93005; 99283; 99285; A9270; G0378

== ENCOUNTER 2016-09-29 14:07 | Inpatient (IN) | payer MEDICARE, MEDICAID ==
--- NOTE | 2016-09-29 15:30 | PCM.HP ---
H&P History of Present Illness - General Date of Service: 09/29/16 Admit Problem/Dx: Admission Diagnosis/Problem Admission Diagnosis/Problem Weakness Source of Information: Patient History Limitations: Reports: No Limitations - History of Present Illness Initial Comments - Free Text/Narative: Mr. Epps is a 41 yo male with MS who is admitted for swing bed due to generalized weakness. He actually was admitted under observation yesterday to today and was feeling well enough to dismiss home earlier this morning. However , after returning home, he felt generally weak and was unable to get himself up off of his wheelchair. He almost fell again. Therefore, he called our returned case inspector who was able to coordinate getting him admitted for swing bed cares. No other new symptoms since this morning. - Related Data Allergies/Adverse Reactions: Allergies Allergy/AdvReac Type Severity Reaction Status Date / Time ceftriaxone sodium Allergy Rash Verified 09/28/16 08:05 [From Jenelle] Home Medications: Home Meds Acetaminophen 650 mg PO Q4H PRN 04/22/16 [History] Docusate Sodium [Colace] 100 mg PO DAILY 04/22/16 [History] Cholecalciferol (Vitamin D3) [Vitamin D3] 4,000 unit PO DAILY 05/31/16 [History] Fluticasone Propionate [Flonase] 1 spray NASBOTH DAILY 05/31/16 [History] Multivits,Ca,Minerals/Iron/FA [Thera-M] 1 tab PO DAILY 05/31/16 [History] Ascorbic Acid 500 mg PO Q3D 07/11/16 [History] Bisacodyl [Dulcolax] 10 mg PO DAILY PRN 07/11/16 [History] Cyanocobalamin (Vitamin B12) [Vitamin B12] 1,000 mcg PO DAILY 07/11/16 [History] Sennosides/Docusate Sodium [Senna S Tablet] 2 tab PO BEDTIME PRN 07/11/16 [ History] Past Medical History - Past Health History Medical/Surgical History: Denies Medical/Surgical History HEENT History: Reports: None Cardiovascular History: Reports: None Respiratory History: Reports: None Gastrointestinal History: Reports: None Genitourinary History: Reports: Neurogenic Bladder Musculoskeletal History: Reports: None Other Musculoskeletal History: MS dx 1999 with recent exacerbation Neurological History: Reports: MS Psychiatric History: Reports: None Endocrine/Metabolic History: Reports: None Hematologic History: Reports: None Immunologic History: Reports: None Oncologic (Cancer) History: Reports: None Dermatologic History: Reports: None - Infectious Disease History Infectious Disease History: Reports: None - Past Surgical History Neurological Surgical History: Reports: None Social & Family History - Family History HEENT: Reports: Glaucoma Cardiac: Reports: NH : Reports: Dialysis Endocrine/Metabolic: Reports: Diabetes, type II - Tobacco Use Smoking Status *Q: Never Smoker Second Hand Smoke Exposure: No - Caffeine Use Caffeine Use: Reports: None Caffeine Use Comment: green tea - Alcohol Use Alcohol Use History: No Days Per Week of Alcohol Use: 0 Alcohol Use in Last Twelve Months: No - Recreational Drug Use Recreational Drug Use: No - Living Situation & Occupation Living situation: Reports: Alone (considering transition to a SNF but is not ready for that yet) Occupation: Disabled H&P Review of Systems - Review of Systems: Review Of Systems: See Below General: Reports: No Symptoms HEENT: Reports: No Symptoms Pulmonary: Reports: No Symptoms Cardiovascular: Reports: No Symptoms Gastrointestinal: Reports: No Symptoms Genitourinary: Reports: No Symptoms Musculoskeletal: Reports: No Symptoms Skin: Reports: No Symptoms Exam - Exam Exam: See Below - Vital Signs Vital Signs: Last Vital Signs Temp 36.6 C 09/29/16 14:52 Pulse 71 09/29/16 14:52 Resp 20 09/29/16 14:52 BP 122/79 09/29/16 14:52 Pulse Ox 98 09/29/16 14:52 Weight: 123.831 kg - Exam General: Alert, Cooperative HEENT: Mucosa Moist & [place], Posterior Pharynx Clear, Pupils Equal, Pupils Reactive Neck: Supple, Trachea Midline. No: Lymphadenopathy, Thyromegaly Lungs: Clear to Auscultation, Normal Respiratory Effort Cardiovascular: Regular Rate, Regular Rhythm, Normal S1, Normal S2. No: Systolic Murmur, Diastolic Murmur Abdomen: Normal Bowel Sounds, Soft. No: Organomegaly, Peritoneal Signs, Tenderness Extremities: Normal Inspection, Normal Pulses. No: Edema Skin: Warm, Dry, Intact Neurological: Other (arm strength equal bilateral; diminished sensation in the hands bilaterally; no movement of right leg, which is baseline) *Q Meaningful Use (ADM) - VTE *Q VTE Criteria *Q: VTE Pharmacological Contraindications *Q: Anticoagult Allerg no Alt - Stroke *Q Stroke Criteria *Q: - AMI *Q AMI Criteria *Q: - Problem List (1) Weakness generalized SNOMED Code(s): 45772131 ICD Code: R53.1 - WEAKNESS Status: Acute Current Visit: No Problem Details: - Secondary to MS. - PT/OT/SW consults. (2) Multiple sclerosis SNOMED Code(s): 82105101 ICD Code: G35 - MULTIPLE SCLEROSIS Status: Acute Current Visit: No Problem Details: - Following with neurology and has appointment next week. - No solumedrol for now. - Will reassess tomorrow. (3) Allergic rhinitis SNOMED Code(s): 91289764 ICD Code: J30.9 - ALLERGIC RHINITIS, UNSPECIFIED Status: Chronic Current Visit: No Problem Details: Flonase continued. Qualifiers: Allergic rhinitis trigger: unspecified Allergic rhinitis seasonality: seasonal (4) Constipation SNOMED Code(s): 96751083 ICD Code: K59.00 - CONSTIPATION, UNSPECIFIED Status: Chronic Current Visit: No Problem Details: Home regimen continued. Qualifiers: Constipation type: unspecified constipation type Qualified Code(s): K59.00 - Constipation, unspecified (5) Neurogenic bladder SNOMED Code(s): 190378734 ICD Code: N31.9 - NEUROMUSCULAR DYSFUNCTION OF BLADDER, UNSPECIFIED Status : Chronic Current Visit: No Problem Details: - Not on any medications due to intolerance to oxybutynin in the past. Problem List Initiated/Reviewed/Updated: Yes Orders Last 24hrs: Active Orders 24 hr Category Date Time Status Admission Status [Patient Status] [ADT] Routine ADT 09/29/16 14:09 Active Antiembolic Devices [RC] 08,20 Care 09/29/16 15:16 Active Notify Provider Vital Signs [RC] ASDIRECTED Care 09/29/16 15:28 Ordered Oxygen Therapy [RC] PRN Care 09/29/16 15:27 Ordered Up With Assistance [RC] ASDIRECTED Care 09/29/16 15:27 Ordered VTE/DVT Education [RC] PER UNIT ROUTINE Care 09/29/16 15:27 Ordered Vital Signs [RC] PER UNIT ROUTINE Care 09/29/16 15:27 Ordered Consult to Case Management [CONS] Routine Cons 09/29/16 15:27 Ordered OT Evaluation and Treatment [CONS] Routine Cons 09/29/16 15:27 Ordered PT Evaluation and Treatment [CONS] Routine Cons 09/29/16 15:27 Ordered Regular Diet [DIET] Diet 09/29/16 Dinner Ordered Acetaminophen [Acetaminophen] Med 09/29/16 15:14 Ordered 650 mg PO Q4H PRN Ascorbic Acid [Ascorbic Acid] Med 09/29/16 15:15 Ordered 500 mg PO Q3D Bisacodyl [Dulcolax] Med 09/29/16 15:14 Ordered 10 mg PO DAILY PRN Cholecalciferol (Vitamin D3) [Vitamin D3] Med 09/30/16 08:00 Ordered 4,000 unit PO DAILY Cyanocobalamin (Vitamin B12) [Vitamin B12] Med 09/30/16 08:00 Ordered 1,000 mcg PO DAILY Docusate Sodium [Colace] Med 09/30/16 08:00 Active 100 mg PO DAILY Docusate Sodium [Colace] Med 09/30/16 08:00 Ordered 100 mg PO DAILY Fluticasone Propionate [Flonase] Med 09/30/16 08:00 Ordered 1 spray NASBOTH DAILY Multivits,Ca,Minerals/Iron/FA [Thera-M] Med 09/30/16 08:00 Ordered 1 tab PO DAILY Sennosides/Docusate Sodium [Senna S Tablet] Med 09/29/16 15:14 Ordered 2 tab PO BEDTIME PRN Anti-Embolism Stockings AK [Antiembolic Hose] [OM.PC] Oth 09/29/16 15:16 Ordered Routine VTE Pharmacological Contraindications [AST] Routine Oth 09/29/16 15:27 Ordered Resuscitation Status Routine Resus Stat 09/29/16 15:27 Ordered Medication Orders Docusate Sodium (Colace) 100 mg PO DAILY ORAL Non-Formulary Medication (Acetaminophen [Acetaminophen]) 650 mg PO Q4H PRN PRN Reason: Pain (mild 1-3) Non-Formulary Medication (Ascorbic Acid [Ascorbic Acid]) 500 mg PO Q3D ORAL Non-Formulary Medication (Bisacodyl [Dulcolax]) 10 mg PO DAILY PRN PRN Reason: Constipation Non-Formulary Medication (Cholecalciferol (Vitamin D3) [Vitamin D3]) 4,000 unit PO DAILY ORAL Non-Formulary Medication (Cyanocobalamin (Vitamin B12) [Vitamin B12]) 1,000 mcg PO DAILY ORAL Non-Formulary Medication (Docusate Sodium [Colace]) 100 mg PO DAILY ORAL Non-Formulary Medication (Fluticasone Propionate [Flonase]) 1 spray NASBOTH DAILY ORAL Non-Formulary Medication (Multivits,Ca,Minerals/Iron/Fa [Thera-M]) 1 tab PO DAILY ORAL Non-Formulary Medication (Sennosides/Docusate Sodium [Senna S Tablet]) 2 tab PO BEDTIME PRN PRN Reason: Constipation Assessment/Plan Comment:: 41 yo male with MS admitted for generalized weakness. Likely needs to consider transition to a extermination supervisor care facility. PT/OT/SW consults. Continue home medications. TEDS for VTE prophylaxis; nothing else as he is at baseline functional status. Wishes to be full code. Length of stay will be determined by PT and OT assessments as well as his decisions on where he will live extermination supervisor.
[2016-09-30] MEDS: Cholecalciferol (Vitamin D3) 1,000 Unit Tab PO SCH (07:47)
[2016-09-30] MEDS: Docusate Sodium 100 MG Cap PO SCH (07:47)
[2016-09-30] MEDS: Cyanocobalamin (Vitamin B12) 1,000 MCG Tab PO SCH (07:47)
[2016-09-30] MEDS: Multivitamins with Iron/Calcium/Folic Acid/Minerals Tab PO SCH (07:47)
[2016-09-30] MEDS: Fluticasone Propionate Nasal Spray 16 GM Bottle **OWN MED NASBOTH SCH (07:48)
[2016-09-30] MEDS ORDERED: Non-Formulary Medication 1 Each (Docusate Sodium [Colace] 100 MG) PO SCH (08:00)
[2016-09-30] MEDS: Ascorbic Acid 500 MG Tab PO SCH (09:24)
[2016-10-01] MEDS: Cholecalciferol (Vitamin D3) 1,000 Unit Tab PO SCH (07:39)
[2016-10-01] MEDS: Cyanocobalamin (Vitamin B12) 1,000 MCG Tab PO SCH (07:40)
[2016-10-01] MEDS: Docusate Sodium 100 MG Cap PO SCH (07:41)
[2016-10-01] MEDS: Multivitamins with Iron/Calcium/Folic Acid/Minerals Tab PO SCH (07:41)
[2016-10-01] MEDS: Fluticasone Propionate Nasal Spray 16 GM Bottle **OWN MED NASBOTH SCH (07:42)
[2016-10-02] MEDS: Cholecalciferol (Vitamin D3) 1,000 Unit Tab PO SCH (07:45)
[2016-10-02] MEDS: Docusate Sodium 100 MG Cap PO SCH (07:46)
[2016-10-02] MEDS: Multivitamins with Iron/Calcium/Folic Acid/Minerals Tab PO SCH (07:46)
[2016-10-02] MEDS: Fluticasone Propionate Nasal Spray 16 GM Bottle **OWN MED NASBOTH SCH (07:46)
[2016-10-02] MEDS: Cyanocobalamin (Vitamin B12) 1,000 MCG Tab PO SCH (07:46)
[2016-10-03] MEDS: Cholecalciferol (Vitamin D3) 1,000 Unit Tab PO SCH ×2 (06:05→07:01)
[2016-10-03] MEDS: Docusate Sodium 100 MG Cap PO SCH ×2 (06:06→07:00)
[2016-10-03] MEDS: Multivitamins with Iron/Calcium/Folic Acid/Minerals Tab PO SCH ×2 (06:06→07:01)
[2016-10-03] MEDS: Cyanocobalamin (Vitamin B12) 1,000 MCG Tab PO SCH ×2 (06:06→07:01)
[2016-10-03] MEDS: Fluticasone Propionate Nasal Spray 16 GM Bottle **OWN MED NASBOTH SCH ×2 (06:10→07:00)
[2016-10-03] MEDS: Ascorbic Acid 500 MG Tab PO SCH (13:24)
[2016-10-04] MEDS: Cholecalciferol (Vitamin D3) 1,000 Unit Tab PO SCH (08:42)
[2016-10-04] MEDS: Multivitamins with Iron/Calcium/Folic Acid/Minerals Tab PO SCH (08:43)
[2016-10-04] MEDS: Docusate Sodium 100 MG Cap PO SCH (08:43)
[2016-10-04] MEDS: Fluticasone Propionate Nasal Spray 16 GM Bottle **OWN MED NASBOTH SCH (08:43)
[2016-10-04] MEDS: Cyanocobalamin (Vitamin B12) 1,000 MCG Tab PO SCH (08:43)
[2016-10-05] MEDS: Multivitamins with Iron/Calcium/Folic Acid/Minerals Tab PO SCH (08:41)
[2016-10-05] MEDS: Cyanocobalamin (Vitamin B12) 1,000 MCG Tab PO SCH (08:41)
[2016-10-05] MEDS: Cholecalciferol (Vitamin D3) 1,000 Unit Tab PO SCH (08:50)
[2016-10-05] MEDS: Docusate Sodium 100 MG Cap PO SCH (08:51)
[2016-10-05] MEDS: Fluticasone Propionate Nasal Spray 16 GM Bottle **OWN MED NASBOTH SCH (08:52)
[2016-10-06] MEDS: Cholecalciferol (Vitamin D3) 1,000 Unit Tab PO SCH (08:10)
[2016-10-06] MEDS: Fluticasone Propionate Nasal Spray 16 GM Bottle **OWN MED NASBOTH SCH (08:13)
[2016-10-06] MEDS: Multivitamins with Iron/Calcium/Folic Acid/Minerals Tab PO SCH (08:13)
[2016-10-06] MEDS: Docusate Sodium 100 MG Cap PO SCH (08:14)
[2016-10-06] MEDS: Cyanocobalamin (Vitamin B12) 1,000 MCG Tab PO SCH (08:14)
[2016-10-06] MEDS: Ascorbic Acid 500 MG Tab PO SCH (10:33)
[2016-10-07] MEDS: Docusate Sodium 100 MG Cap PO SCH (08:07)
[2016-10-07] MEDS: Cholecalciferol (Vitamin D3) 1,000 Unit Tab PO SCH (08:07)
[2016-10-07] MEDS: Multivitamins with Iron/Calcium/Folic Acid/Minerals Tab PO SCH (08:07)
[2016-10-07] MEDS: Cyanocobalamin (Vitamin B12) 1,000 MCG Tab PO SCH (08:07)
[2016-10-07] MEDS: Fluticasone Propionate Nasal Spray 16 GM Bottle **OWN MED NASBOTH SCH (08:08)
[2016-10-08] MEDS: Cholecalciferol (Vitamin D3) 1,000 Unit Tab PO SCH (07:59)
[2016-10-08] MEDS: Docusate Sodium 100 MG Cap PO SCH (07:59)
[2016-10-08] MEDS: Multivitamins with Iron/Calcium/Folic Acid/Minerals Tab PO SCH (07:59)
[2016-10-08] MEDS: Cyanocobalamin (Vitamin B12) 1,000 MCG Tab PO SCH (07:59)
[2016-10-08] MEDS: Fluticasone Propionate Nasal Spray 16 GM Bottle **OWN MED NASBOTH SCH (08:00)
[2016-10-09] MEDS: Cholecalciferol (Vitamin D3) 1,000 Unit Tab PO SCH (07:47)
[2016-10-09] MEDS: Fluticasone Propionate Nasal Spray 16 GM Bottle **OWN MED NASBOTH SCH (07:47)
[2016-10-09] MEDS: Docusate Sodium 100 MG Cap PO SCH (07:47)
[2016-10-09] MEDS: Multivitamins with Iron/Calcium/Folic Acid/Minerals Tab PO SCH (07:47)
[2016-10-09] MEDS: Cyanocobalamin (Vitamin B12) 1,000 MCG Tab PO SCH (07:47)
[2016-10-09] MEDS: Bisacodyl 5 MG Tab PO PRN (07:50)
[2016-10-09] MEDS: Ascorbic Acid 500 MG Tab PO SCH ×2 (07:51→08:26)
[2016-10-09] MEDS ORDERED: Bisacodyl 10 MG Supp RECTAL ONE (15:37)
[2016-10-09] MEDS ORDERED: Magnesium Hydroxide 400 MG/5 ML Susp 30 ML Cup PO ONE (17:38)
[2016-10-10] MEDS: Multivitamins with Iron/Calcium/Folic Acid/Minerals Tab PO SCH ×2 (05:55→07:06)
[2016-10-10] MEDS: Docusate Sodium 100 MG Cap PO SCH ×2 (05:55→07:06)
[2016-10-10] MEDS: Cyanocobalamin (Vitamin B12) 1,000 MCG Tab PO SCH ×2 (05:55→07:06)
[2016-10-10] MEDS: Fluticasone Propionate Nasal Spray 16 GM Bottle **OWN MED NASBOTH SCH ×2 (05:56→07:06)
[2016-10-10] MEDS: Cholecalciferol (Vitamin D3) 1,000 Unit Tab PO SCH (07:06)
[2016-10-11] MEDS: Docusate Sodium 100 MG Cap PO SCH (07:55)
[2016-10-11] MEDS: Multivitamins with Iron/Calcium/Folic Acid/Minerals Tab PO SCH (07:55)
[2016-10-11] MEDS: Cholecalciferol (Vitamin D3) 1,000 Unit Tab PO SCH (07:55)
[2016-10-11] MEDS: Cyanocobalamin (Vitamin B12) 1,000 MCG Tab PO SCH (07:55)
[2016-10-11] MEDS: Fluticasone Propionate Nasal Spray 16 GM Bottle **OWN MED NASBOTH SCH (07:57)
[2016-10-12] MEDS: Cholecalciferol (Vitamin D3) 1,000 Unit Tab PO SCH (07:35)
[2016-10-12] MEDS: Multivitamins with Iron/Calcium/Folic Acid/Minerals Tab PO SCH (07:37)
[2016-10-12] MEDS: Docusate Sodium 100 MG Cap PO SCH (07:37)
[2016-10-12] MEDS: Cyanocobalamin (Vitamin B12) 1,000 MCG Tab PO SCH (07:37)
[2016-10-12] MEDS: Fluticasone Propionate Nasal Spray 16 GM Bottle **OWN MED NASBOTH SCH (07:38)
[2016-10-12] MEDS: Ascorbic Acid 500 MG Tab PO SCH (08:40)
[2016-10-13] MEDS: Multivitamins with Iron/Calcium/Folic Acid/Minerals Tab PO SCH (09:55)
[2016-10-13] MEDS: Cyanocobalamin (Vitamin B12) 1,000 MCG Tab PO SCH (09:55)
[2016-10-13] MEDS: Docusate Sodium 100 MG Cap PO SCH (09:56)
[2016-10-13] MEDS: Fluticasone Propionate Nasal Spray 16 GM Bottle **OWN MED NASBOTH SCH (09:56)
[2016-10-13] MEDS: Cholecalciferol (Vitamin D3) 1,000 Unit Tab PO SCH (09:56)
[2016-10-14] MEDS: Docusate Sodium 100 MG Cap PO SCH (07:48)
[2016-10-14] MEDS: Cholecalciferol (Vitamin D3) 1,000 Unit Tab PO SCH (07:48)
[2016-10-14] MEDS: Multivitamins with Iron/Calcium/Folic Acid/Minerals Tab PO SCH (07:48)
[2016-10-14] MEDS: Fluticasone Propionate Nasal Spray 16 GM Bottle **OWN MED NASBOTH SCH (07:49)
[2016-10-14] MEDS: Cyanocobalamin (Vitamin B12) 1,000 MCG Tab PO SCH (07:49)
[2016-10-15] MEDS: Cholecalciferol (Vitamin D3) 1,000 Unit Tab PO SCH (09:42)
[2016-10-15] MEDS: Docusate Sodium 100 MG Cap PO SCH (09:42)
[2016-10-15] MEDS: Cyanocobalamin (Vitamin B12) 1,000 MCG Tab PO SCH (09:42)
[2016-10-15] MEDS: Fluticasone Propionate Nasal Spray 16 GM Bottle **OWN MED NASBOTH SCH (09:43)
[2016-10-15] MEDS: Multivitamins with Iron/Calcium/Folic Acid/Minerals Tab PO SCH (09:43)
[2016-10-15] MEDS: Ascorbic Acid 500 MG Tab PO SCH (12:55)
[2016-10-16] MEDS: Multivitamins with Iron/Calcium/Folic Acid/Minerals Tab PO SCH (08:18)
[2016-10-16] MEDS: Docusate Sodium 100 MG Cap PO SCH (08:18)
[2016-10-16] MEDS: Cholecalciferol (Vitamin D3) 1,000 Unit Tab PO SCH (08:18)
[2016-10-16] MEDS: Bisacodyl 5 MG Tab PO PRN (08:19)
[2016-10-16] MEDS: Cyanocobalamin (Vitamin B12) 1,000 MCG Tab PO SCH (08:19)
[2016-10-16] MEDS: Fluticasone Propionate Nasal Spray 16 GM Bottle **OWN MED NASBOTH SCH (08:19)
[2016-10-16] MEDS ORDERED: Bisacodyl 10 MG Supp RECTAL ONE (16:05)
[2016-10-17] MEDS: Cholecalciferol (Vitamin D3) 1,000 Unit Tab PO SCH (07:57)
[2016-10-17] MEDS: Multivitamins with Iron/Calcium/Folic Acid/Minerals Tab PO SCH (07:57)
[2016-10-17] MEDS: Cyanocobalamin (Vitamin B12) 1,000 MCG Tab PO SCH (07:57)
[2016-10-17] MEDS: Docusate Sodium 100 MG Cap PO SCH (07:57)
[2016-10-17] MEDS: Fluticasone Propionate Nasal Spray 16 GM Bottle **OWN MED NASBOTH SCH (07:57)
[2016-10-17] MEDS: Magnesium Hydroxide 400 MG/5 ML Susp 30 ML Cup PO PRN (08:10)
[2016-10-18] MEDS: Cholecalciferol (Vitamin D3) 1,000 Unit Tab PO SCH (08:10)
[2016-10-18] MEDS: Multivitamins with Iron/Calcium/Folic Acid/Minerals Tab PO SCH (08:10)
[2016-10-18] MEDS: Cyanocobalamin (Vitamin B12) 1,000 MCG Tab PO SCH (08:10)
[2016-10-18] MEDS: Docusate Sodium 100 MG Cap PO SCH (08:10)
[2016-10-18] MEDS: Fluticasone Propionate Nasal Spray 16 GM Bottle **OWN MED NASBOTH SCH (08:10)
[2016-10-18] MEDS: Ascorbic Acid 500 MG Tab PO SCH (08:13)
[2016-10-19] MEDS: Docusate Sodium 100 MG Cap PO SCH (07:29)
[2016-10-19] MEDS: Multivitamins with Iron/Calcium/Folic Acid/Minerals Tab PO SCH (07:29)
[2016-10-19] MEDS: Cyanocobalamin (Vitamin B12) 1,000 MCG Tab PO SCH (07:29)
[2016-10-19] MEDS: Fluticasone Propionate Nasal Spray 16 GM Bottle **OWN MED NASBOTH SCH (07:29)
[2016-10-19] MEDS: Cholecalciferol (Vitamin D3) 1,000 Unit Tab PO SCH (07:29)
--- NOTE | 2016-10-19 09:25 | PCM.PN ---
- General Info Date of Service: 10/19/16 Subjective Update: Feels he is progressively getting weaker. I did message Dr. Castillo when he first brought this concern up and have since heard back from her; therefore, we discussed her recommendations. He has also been struggling with constipation. Otherwise, he denies any concerns. - Review of Systems General: Reports: No Symptoms HEENT: Reports: no symptoms Pulmonary: Reports: no symptoms Cardiovascular: Reports: No Symptoms Gastrointestinal: Reports: Constipation Genitourinary: Reports: no symptoms Musculoskeletal: Reports: no symptoms Skin: Reports: no symptoms - Patient Data Vitals - most recent: Last Vital Signs Temp 36.6 C 10/19/16 05:49 Pulse 64 10/19/16 05:49 Resp 20 10/19/16 05:49 BP 124/72 10/19/16 05:49 Pulse Ox 99 10/19/16 05:49 Weight - most recent: 123.831 kg Med Orders - Current: Current Medications Acetaminophen (Tylenol) 650 mg PO Q4H PRN PRN Reason: Pain (mild 1-3) Ascorbic Acid (Vitamin C) 500 mg PO Q3D ORAL Bisacodyl (Dulcolax) 10 mg PO DAILY PRN PRN Reason: Constipation Last Admin: 10/16/16 08:19 Dose: 10 mg Cholecalciferol (Vitamin D3) 4,000 units PO DAILY [facility] Last Admin: 10/19/16 07:29 Dose: 4,000 units Cyanocobalamin (Vitamin B12) 1,000 mcg PO DAILY ORAL Last Admin: 10/19/16 07:29 Dose: 1,000 mcg Docusate Sodium (Colace) 100 mg PO DAILY ORAL Last Admin: 10/19/16 07:29 Dose: 100 mg Fluticasone Propionate (Flonase) 0 gm NASBOTH DAILY ORAL Last Admin: 10/19/16 07:29 Dose: 1 spray Methylprednisolone Sodium Succinate 1,000 mg/ Sodium Chloride 108 mls @ 200 mls /hr IV Q24H ORAL Stop: 10/21/16 10:03 Magnesium Hydroxide (Milk Of Magnesia) 30 ml PO DAILY PRN PRN Reason: Constipation Last Admin: 10/17/16 08:10 Dose: 30 ml Multivitamins/Minerals (Thera M Plus) 1 tab PO DAILY ORAL Last Admin: 10/19/16 07:29 Dose: 1 tab Polyethylene Glycol (Miralax) 17 gm PO DAILY [facility] Senna/Docusate Sodium (Senna Plus) 2 tab PO BEDTIME PRN PRN Reason: Constipation Last Admin: 10/15/16 22:03 Dose: 2 tab Discontinued Medications Ascorbic Acid (Vitamin C) 500 mg PO Q3D [facility] Last Admin: 10/18/16 08:13 Dose: 500 mg Bisacodyl (Dulcolax) 10 mg RECTAL ONETIME ONE Stop: 10/09/16 15:38 Last Admin: 10/09/16 15:46 Dose: 10 mg Bisacodyl (Dulcolax) 10 mg RECTAL ONETIME ONE Stop: 10/16/16 16:06 Last Admin: 10/16/16 16:05 Dose: 10 mg Magnesium Hydroxide (Milk Of Magnesia) 30 ml PO ONETIME ONE Stop: 10/09/16 17:39 Last Admin: 10/09/16 17:46 Dose: 30 ml Non-Formulary Medication (Docusate Sodium [Colace]) 100 mg PO DAILY [facility] Senna/Docusate Sodium (Senna Plus) 2 tab PO BEDTIME PRN PRN Reason: Constipation - Exam General: alert, cooperative, no acute distress HEENT: Pupils equal, Pupils reactive, Mucous membr. moist/pink Neck: supple, no thyromegaly. No: lymphadenopathy Lungs: Clear to auscultation, Normal respiratory effort Cardiovascular: Regular Rate, Regular Rhythm, No Murmurs Abdomen: bowel sounds present, soft, no tenderness, no distension Extremities: no edema, normal pulses Skin: warm, dry, intact - Problem List & Annotations (1) Weakness generalized SNOMED Code(s): 24686789 Code(s): R53.1 - WEAKNESS Status: Acute Current Visit: No Annotation/ Comment:: - Secondary to MS. - PT/OT/SW consults. - Patient feels he is getting weaker instead of stronger (see below). - He remains undecided on disposition at this time. (2) Multiple sclerosis SNOMED Code(s): 51647456 Code(s): G35 - MULTIPLE SCLEROSIS Status: Acute Current Visit: No Annotation/Comment:: - Following with neurology; plan at this point is to continue the ocrevus. - Reviewed Dr. Castillo's thoughts that his weakness is likely disease progression rather than a flare and that she is not sure how much benefit will be gleaned from the solu-medrol. However, she did feel it would be ok to give this a try if he has not had issues with hypertension or hyperglycemia in the past, which he has not. - He would like to give it a try. Therefore, we will do 3 days of solu-medrol 1, 000 mg daily. (3) Allergic rhinitis SNOMED Code(s): 59864482 Code(s): J30.9 - ALLERGIC RHINITIS, UNSPECIFIED Status: Chronic Current Visit: No Qualifiers: Allergic rhinitis trigger: unspecified Allergic rhinitis seasonality: seasonal Annotation/Comment:: Flonase continued. (4) Constipation SNOMED Code(s): 53720318 Code(s): K59.00 - CONSTIPATION, UNSPECIFIED Status: Chronic Current Visit : No Qualifiers: Constipation type: unspecified constipation type Qualified Code(s): K59.00 - Constipation, unspecified Annotation/Comment:: - Will add daily Miralax to see if we can get him having more regular BM's. (5) Neurogenic bladder SNOMED Code(s): 017851116 Code(s): N31.9 - NEUROMUSCULAR DYSFUNCTION OF BLADDER, UNSPECIFIED Status: Chronic Current Visit: No Annotation/Comment:: - Not on any medications due to intolerance to oxybutynin in the past. - Problem List Review Problem List Initiated/Reviewed/Updated: Yes - My Orders Last 24 Hours: My Active Orders 10/19/16 09:30 Polyethylene Glycol 3350 [MiraLAX] 17 gm PO DAILY methylPREDNISolone Sod Succ [Solu-MEDROL] 1,000 mg Sodium Chloride 0.9% [ Normal Saline] 100 ml IV Q24H 10/21/16 08:00 Ascorbic Acid [Vitamin C] 500 mg PO Q3D - Assessment Assessment:: 41 yo male admitted with generalized weakness secondary to MS. He is here for rehab but also for disposition planning. - Plan Plan:: See details under problems above. Will trial 3 days of solu-medrol and add miralax for constipation. PT/OT/SW consults. Continue home medications. TEDS for VTE prophylaxis; nothing else as he is at baseline functional status. Wishes to be full code. He remains unsure about where his final destination will be but likely needs to seriously consider a fpc care facility.
[2016-10-19] MEDS: Polyethylene Glycol 3350 Powder 17 GM Packet PO SCH (10:18)
[2016-10-19] MEDS: methylPREDNISolone Sod Succ 1,000 MG in Sodium Chloride 0.9% 100 ML IV SCH (10:19)
[2016-10-20] MEDS: Multivitamins with Iron/Calcium/Folic Acid/Minerals Tab PO SCH (08:22)
[2016-10-20] MEDS: Docusate Sodium 100 MG Cap PO SCH (08:22)
[2016-10-20] MEDS: Cyanocobalamin (Vitamin B12) 1,000 MCG Tab PO SCH (08:22)
[2016-10-20] MEDS: Cholecalciferol (Vitamin D3) 1,000 Unit Tab PO SCH (08:22)
[2016-10-20] MEDS: Fluticasone Propionate Nasal Spray 16 GM Bottle **OWN MED NASBOTH SCH (08:23)
[2016-10-20] MEDS: Polyethylene Glycol 3350 Powder 17 GM Packet PO SCH (08:23)
[2016-10-20] MEDS: methylPREDNISolone Sod Succ 1,000 MG in Sodium Chloride 0.9% 100 ML IV SCH (10:55)
[2016-10-21] MEDS: Fluticasone Propionate Nasal Spray 16 GM Bottle **OWN MED NASBOTH SCH (08:30)
[2016-10-21] MEDS: Cholecalciferol (Vitamin D3) 1,000 Unit Tab PO SCH (08:30)
[2016-10-21] MEDS: Multivitamins with Iron/Calcium/Folic Acid/Minerals Tab PO SCH (08:30)
[2016-10-21] MEDS: Ascorbic Acid 500 MG Tab PO SCH (08:30)
[2016-10-21] MEDS: Docusate Sodium 100 MG Cap PO SCH (08:30)
[2016-10-21] MEDS: Cyanocobalamin (Vitamin B12) 1,000 MCG Tab PO SCH (08:30)
[2016-10-21] MEDS: Polyethylene Glycol 3350 Powder 17 GM Packet PO SCH (08:30)
[2016-10-21] MEDS: methylPREDNISolone Sod Succ 1,000 MG in Sodium Chloride 0.9% 100 ML IV SCH (12:26)
[2016-10-22] MEDS: Docusate Sodium 100 MG Cap PO SCH (08:54)
[2016-10-22] MEDS: Cholecalciferol (Vitamin D3) 1,000 Unit Tab PO SCH (08:55)
[2016-10-22] MEDS: Multivitamins with Iron/Calcium/Folic Acid/Minerals Tab PO SCH (08:55)
[2016-10-22] MEDS: Fluticasone Propionate Nasal Spray 16 GM Bottle **OWN MED NASBOTH SCH (08:55)
[2016-10-22] MEDS: Cyanocobalamin (Vitamin B12) 1,000 MCG Tab PO SCH (08:55)
[2016-10-22] MEDS: Polyethylene Glycol 3350 Powder 17 GM Packet PO SCH (10:14)
[2016-10-23] MEDS: Polyethylene Glycol 3350 Powder 17 GM Packet PO SCH (08:19)
[2016-10-23] MEDS: Multivitamins with Iron/Calcium/Folic Acid/Minerals Tab PO SCH (08:20)
[2016-10-23] MEDS: Fluticasone Propionate Nasal Spray 16 GM Bottle **OWN MED NASBOTH SCH (08:20)
[2016-10-23] MEDS: Cholecalciferol (Vitamin D3) 1,000 Unit Tab PO SCH (08:20)
[2016-10-23] MEDS: Cyanocobalamin (Vitamin B12) 1,000 MCG Tab PO SCH (08:20)
[2016-10-23] MEDS: Docusate Sodium 100 MG Cap PO SCH (08:20)
[2016-10-24] MEDS: Multivitamins with Iron/Calcium/Folic Acid/Minerals Tab PO SCH (07:34)
[2016-10-24] MEDS: Fluticasone Propionate Nasal Spray 16 GM Bottle **OWN MED NASBOTH SCH (07:34)
[2016-10-24] MEDS: Polyethylene Glycol 3350 Powder 17 GM Packet PO SCH (07:34)
[2016-10-24] MEDS: Docusate Sodium 100 MG Cap PO SCH (07:35)
[2016-10-24] MEDS: Cyanocobalamin (Vitamin B12) 1,000 MCG Tab PO SCH (07:35)
[2016-10-24] MEDS: Cholecalciferol (Vitamin D3) 1,000 Unit Tab PO SCH (07:35)
[2016-10-24] MEDS: Ascorbic Acid 500 MG Tab PO SCH (07:39)
[2016-10-24] MEDS: Acetaminophen 325 MG Tab PO PRN (09:15)
[2016-10-25] MEDS: Fluticasone Propionate Nasal Spray 16 GM Bottle **OWN MED NASBOTH SCH (08:21)
[2016-10-25] MEDS: Docusate Sodium 100 MG Cap PO SCH (08:21)
[2016-10-25] MEDS: Multivitamins with Iron/Calcium/Folic Acid/Minerals Tab PO SCH (08:22)
[2016-10-25] MEDS: Polyethylene Glycol 3350 Powder 17 GM Packet PO SCH (08:22)
[2016-10-25] MEDS: Cyanocobalamin (Vitamin B12) 1,000 MCG Tab PO SCH (08:22)
[2016-10-25] MEDS: Cholecalciferol (Vitamin D3) 1,000 Unit Tab PO SCH (08:22)
[2016-10-26] MEDS: Docusate Sodium 100 MG Cap PO SCH (08:31)
[2016-10-26] MEDS: Fluticasone Propionate Nasal Spray 16 GM Bottle **OWN MED NASBOTH SCH (08:31)
[2016-10-26] MEDS: Cholecalciferol (Vitamin D3) 1,000 Unit Tab PO SCH (08:32)
[2016-10-26] MEDS: Polyethylene Glycol 3350 Powder 17 GM Packet PO SCH (08:32)
[2016-10-26] MEDS: Cyanocobalamin (Vitamin B12) 1,000 MCG Tab PO SCH (08:32)
[2016-10-26] MEDS: Multivitamins with Iron/Calcium/Folic Acid/Minerals Tab PO SCH (08:32)
[2016-10-26] MEDS: Acetaminophen 325 MG Tab PO PRN (10:35)
[2016-10-27] MEDS: Polyethylene Glycol 3350 Powder 17 GM Packet PO SCH (09:31)
[2016-10-27] MEDS: Fluticasone Propionate Nasal Spray 16 GM Bottle **OWN MED NASBOTH SCH (09:31)
[2016-10-27] MEDS: Docusate Sodium 100 MG Cap PO SCH (09:31)
[2016-10-27] MEDS: Cholecalciferol (Vitamin D3) 1,000 Unit Tab PO SCH (09:35)
[2016-10-27] MEDS: Multivitamins with Iron/Calcium/Folic Acid/Minerals Tab PO SCH (09:35)
[2016-10-27] MEDS: Cyanocobalamin (Vitamin B12) 1,000 MCG Tab PO SCH (09:35)
[2016-10-27] MEDS: Ascorbic Acid 500 MG Tab PO SCH (09:35)
[2016-10-28] MEDS: Multivitamins with Iron/Calcium/Folic Acid/Minerals Tab PO SCH (07:22)
[2016-10-28] MEDS: Cyanocobalamin (Vitamin B12) 1,000 MCG Tab PO SCH (07:22)
[2016-10-28] MEDS: Docusate Sodium 100 MG Cap PO SCH (07:22)
[2016-10-28] MEDS: Polyethylene Glycol 3350 Powder 17 GM Packet PO SCH (07:22)
[2016-10-28] MEDS: Cholecalciferol (Vitamin D3) 1,000 Unit Tab PO SCH (07:23)
[2016-10-28] MEDS: Fluticasone Propionate Nasal Spray 16 GM Bottle **OWN MED NASBOTH SCH (07:23)
[2016-10-28] MEDS: Magnesium Hydroxide 400 MG/5 ML Susp 30 ML Cup PO PRN (07:23)
[2016-10-28] MEDS: Bisacodyl 5 MG Tab PO PRN (14:20)
[2016-10-29] MEDS: Polyethylene Glycol 3350 Powder 17 GM Packet PO SCH (07:10)
[2016-10-29] MEDS: Multivitamins with Iron/Calcium/Folic Acid/Minerals Tab PO SCH (07:10)
[2016-10-29] MEDS: Fluticasone Propionate Nasal Spray 16 GM Bottle **OWN MED NASBOTH SCH (07:10)
[2016-10-29] MEDS: Magnesium Hydroxide 400 MG/5 ML Susp 30 ML Cup PO PRN (07:10)
[2016-10-29] MEDS: Docusate Sodium 100 MG Cap PO SCH (07:10)
[2016-10-29] MEDS: Cyanocobalamin (Vitamin B12) 1,000 MCG Tab PO SCH (07:10)
[2016-10-29] MEDS: Cholecalciferol (Vitamin D3) 1,000 Unit Tab PO SCH (07:11)
[2016-10-30] MEDS: Polyethylene Glycol 3350 Powder 17 GM Packet PO SCH (07:19)
[2016-10-30] MEDS: Docusate Sodium 100 MG Cap PO SCH (07:19)
[2016-10-30] MEDS: Fluticasone Propionate Nasal Spray 16 GM Bottle **OWN MED NASBOTH SCH (07:19)
[2016-10-30] MEDS: Cholecalciferol (Vitamin D3) 1,000 Unit Tab PO SCH (07:20)
[2016-10-30] MEDS: Cyanocobalamin (Vitamin B12) 1,000 MCG Tab PO SCH (07:20)
[2016-10-30] MEDS: Ascorbic Acid 500 MG Tab PO SCH (07:20)
[2016-10-30] MEDS: Multivitamins with Iron/Calcium/Folic Acid/Minerals Tab PO SCH (07:20)
[2016-10-31] MEDS: Cholecalciferol (Vitamin D3) 1,000 Unit Tab PO SCH (07:43)
[2016-10-31] MEDS: Cyanocobalamin (Vitamin B12) 1,000 MCG Tab PO SCH (07:43)
[2016-10-31] MEDS: Docusate Sodium 100 MG Cap PO SCH ×2 (07:43→07:45)
[2016-10-31] MEDS: Multivitamins with Iron/Calcium/Folic Acid/Minerals Tab PO SCH (07:43)
[2016-10-31] MEDS: Fluticasone Propionate Nasal Spray 16 GM Bottle **OWN MED NASBOTH SCH (07:43)
[2016-10-31] MEDS: Polyethylene Glycol 3350 Powder 17 GM Packet PO SCH (07:44)
[2016-11-01] MEDS: Cholecalciferol (Vitamin D3) 1,000 Unit Tab PO SCH (08:41)
[2016-11-01] MEDS: Docusate Sodium 100 MG Cap PO SCH (08:42)
[2016-11-01] MEDS: Fluticasone Propionate Nasal Spray 16 GM Bottle **OWN MED NASBOTH SCH (08:42)
[2016-11-01] MEDS: Cyanocobalamin (Vitamin B12) 1,000 MCG Tab PO SCH (08:42)
[2016-11-01] MEDS: Multivitamins with Iron/Calcium/Folic Acid/Minerals Tab PO SCH (08:42)
[2016-11-01] MEDS: Polyethylene Glycol 3350 Powder 17 GM Packet PO SCH (08:42)
[2016-11-02] MEDS: Docusate Sodium 100 MG Cap PO SCH (08:03)
[2016-11-02] MEDS: Cholecalciferol (Vitamin D3) 1,000 Unit Tab PO SCH (08:03)
[2016-11-02] MEDS: Cyanocobalamin (Vitamin B12) 1,000 MCG Tab PO SCH (08:04)
[2016-11-02] MEDS: Polyethylene Glycol 3350 Powder 17 GM Packet PO SCH (08:04)
[2016-11-02] MEDS: Multivitamins with Iron/Calcium/Folic Acid/Minerals Tab PO SCH (08:04)
[2016-11-02] MEDS: Ascorbic Acid 500 MG Tab PO SCH (08:05)
[2016-11-02] MEDS: Fluticasone Propionate Nasal Spray 16 GM Bottle **OWN MED NASBOTH SCH (08:05)
[2016-11-02] MEDS: Acetaminophen 325 MG Tab PO PRN (09:49)
[2016-11-03] MEDS: Cholecalciferol (Vitamin D3) 1,000 Unit Tab PO SCH (08:17)
[2016-11-03] MEDS: Fluticasone Propionate Nasal Spray 16 GM Bottle **OWN MED NASBOTH SCH (08:17)
[2016-11-03] MEDS: Cyanocobalamin (Vitamin B12) 1,000 MCG Tab PO SCH (08:17)
[2016-11-03] MEDS: Docusate Sodium 100 MG Cap PO SCH (08:18)
[2016-11-03] MEDS: Multivitamins with Iron/Calcium/Folic Acid/Minerals Tab PO SCH (08:18)
[2016-11-03] MEDS: Polyethylene Glycol 3350 Powder 17 GM Packet PO SCH (08:18)
[2016-11-04] MEDS: Fluticasone Propionate Nasal Spray 16 GM Bottle **OWN MED NASBOTH SCH (08:01)
[2016-11-04] MEDS: Docusate Sodium 100 MG Cap PO SCH (08:02)
[2016-11-04] MEDS: Multivitamins with Iron/Calcium/Folic Acid/Minerals Tab PO SCH (08:02)
[2016-11-04] MEDS: Polyethylene Glycol 3350 Powder 17 GM Packet PO SCH (08:02)
[2016-11-04] MEDS: Cyanocobalamin (Vitamin B12) 1,000 MCG Tab PO SCH (08:02)
[2016-11-04] MEDS: Cholecalciferol (Vitamin D3) 1,000 Unit Tab PO SCH (08:02)
[2016-11-04] MEDS: Bisacodyl 5 MG Tab PO PRN (08:05)
[2016-11-05] MEDS: Multivitamins with Iron/Calcium/Folic Acid/Minerals Tab PO SCH (07:29)
[2016-11-05] MEDS: Cyanocobalamin (Vitamin B12) 1,000 MCG Tab PO SCH (07:29)
[2016-11-05] MEDS: Docusate Sodium 100 MG Cap PO SCH (07:29)
[2016-11-05] MEDS: Fluticasone Propionate Nasal Spray 16 GM Bottle **OWN MED NASBOTH SCH (07:29)
[2016-11-05] MEDS: Polyethylene Glycol 3350 Powder 17 GM Packet PO SCH (07:29)
[2016-11-05] MEDS: Cholecalciferol (Vitamin D3) 1,000 Unit Tab PO SCH (07:29)
[2016-11-05] MEDS: Ascorbic Acid 500 MG Tab PO SCH (07:31)
[2016-11-06] MEDS: Docusate Sodium 100 MG Cap PO SCH (07:44)
[2016-11-06] MEDS: Cyanocobalamin (Vitamin B12) 1,000 MCG Tab PO SCH (07:44)
[2016-11-06] MEDS: Polyethylene Glycol 3350 Powder 17 GM Packet PO SCH (07:44)
[2016-11-06] MEDS: Cholecalciferol (Vitamin D3) 1,000 Unit Tab PO SCH (07:44)
[2016-11-06] MEDS: Multivitamins with Iron/Calcium/Folic Acid/Minerals Tab PO SCH (07:44)
[2016-11-06] MEDS: Fluticasone Propionate Nasal Spray 16 GM Bottle **OWN MED NASBOTH SCH (07:44)
[2016-11-07] MEDS: Cholecalciferol (Vitamin D3) 1,000 Unit Tab PO SCH (07:51)
[2016-11-07] MEDS: Fluticasone Propionate Nasal Spray 16 GM Bottle **OWN MED NASBOTH SCH (07:52)
[2016-11-07] MEDS: Polyethylene Glycol 3350 Powder 17 GM Packet PO SCH (07:52)
[2016-11-07] MEDS: Docusate Sodium 100 MG Cap PO SCH (07:52)
[2016-11-07] MEDS: Multivitamins with Iron/Calcium/Folic Acid/Minerals Tab PO SCH (07:52)
[2016-11-07] MEDS: Cyanocobalamin (Vitamin B12) 1,000 MCG Tab PO SCH (07:52)
[2016-11-08] MEDS: Cyanocobalamin (Vitamin B12) 1,000 MCG Tab PO SCH (08:22)
[2016-11-08] MEDS: Multivitamins with Iron/Calcium/Folic Acid/Minerals Tab PO SCH (08:22)
[2016-11-08] MEDS: Cholecalciferol (Vitamin D3) 1,000 Unit Tab PO SCH (08:22)
[2016-11-08] MEDS: Polyethylene Glycol 3350 Powder 17 GM Packet PO SCH (08:24)
[2016-11-08] MEDS: Fluticasone Propionate Nasal Spray 16 GM Bottle **OWN MED NASBOTH SCH (08:24)
[2016-11-08] MEDS: Ascorbic Acid 500 MG Tab PO SCH (08:24)
[2016-11-08] MEDS: Docusate Sodium 100 MG Cap PO SCH (08:24)
[2016-11-09] MEDS: Multivitamins with Iron/Calcium/Folic Acid/Minerals Tab PO SCH (07:39)
[2016-11-09] MEDS: Cyanocobalamin (Vitamin B12) 1,000 MCG Tab PO SCH (07:39)
[2016-11-09] MEDS: Fluticasone Propionate Nasal Spray 16 GM Bottle **OWN MED NASBOTH SCH (07:39)
[2016-11-09] MEDS: Docusate Sodium 100 MG Cap PO SCH (07:40)
[2016-11-09] MEDS: Cholecalciferol (Vitamin D3) 1,000 Unit Tab PO SCH (07:40)
[2016-11-09] MEDS: Polyethylene Glycol 3350 Powder 17 GM Packet PO SCH (07:40)
[2016-11-09] MEDS ORDERED: Polyethylene Glycol 3350 Powder 17 GM Packet PO PRN (12:09)
[2016-11-09] MEDS: Bisacodyl 5 MG Tab PO PRN (18:02)
[2016-11-10] MEDS: Fluticasone Propionate Nasal Spray 16 GM Bottle **OWN MED NASBOTH SCH (07:32)
[2016-11-10] MEDS: Multivitamins with Iron/Calcium/Folic Acid/Minerals Tab PO SCH (07:33)
[2016-11-10] MEDS: Cyanocobalamin (Vitamin B12) 1,000 MCG Tab PO SCH (07:33)
[2016-11-10] MEDS: Docusate Sodium 100 MG Cap PO SCH (07:33)
[2016-11-10] MEDS: Cholecalciferol (Vitamin D3) 1,000 Unit Tab PO SCH (07:33)
[2016-11-10] MEDS: Magnesium Hydroxide 400 MG/5 ML Susp 30 ML Cup PO PRN (19:52)
[2016-11-11] MEDS: Docusate Sodium 100 MG Cap PO SCH (07:38)
[2016-11-11] MEDS: Fluticasone Propionate Nasal Spray 16 GM Bottle **OWN MED NASBOTH SCH (07:38)
[2016-11-11] MEDS: Cholecalciferol (Vitamin D3) 1,000 Unit Tab PO SCH (07:39)
[2016-11-11] MEDS: Cyanocobalamin (Vitamin B12) 1,000 MCG Tab PO SCH (07:39)
[2016-11-11] MEDS: Multivitamins with Iron/Calcium/Folic Acid/Minerals Tab PO SCH (07:39)
[2016-11-11] MEDS: Ascorbic Acid 500 MG Tab PO SCH (07:47)
[2016-11-12] MEDS: Cholecalciferol (Vitamin D3) 1,000 Unit Tab PO SCH (08:04)
[2016-11-12] MEDS: Cyanocobalamin (Vitamin B12) 1,000 MCG Tab PO SCH (08:05)
[2016-11-12] MEDS: Docusate Sodium 100 MG Cap PO SCH (08:06)
[2016-11-12] MEDS: Multivitamins with Iron/Calcium/Folic Acid/Minerals Tab PO SCH (08:06)
[2016-11-12] MEDS: Fluticasone Propionate Nasal Spray 16 GM Bottle **OWN MED NASBOTH SCH (08:07)
[2016-11-13] MEDS: Multivitamins with Iron/Calcium/Folic Acid/Minerals Tab PO SCH (08:38)
[2016-11-13] MEDS: Docusate Sodium 100 MG Cap PO SCH (08:39)
[2016-11-13] MEDS: Fluticasone Propionate Nasal Spray 16 GM Bottle **OWN MED NASBOTH SCH (08:39)
[2016-11-13] MEDS: Cholecalciferol (Vitamin D3) 1,000 Unit Tab PO SCH (08:40)
[2016-11-13] MEDS: Cyanocobalamin (Vitamin B12) 1,000 MCG Tab PO SCH (08:40)
[2016-11-13] MEDS: Bisacodyl 5 MG Tab PO PRN (08:40)
[2016-11-14] MEDS: Multivitamins with Iron/Calcium/Folic Acid/Minerals Tab PO SCH (08:03)
[2016-11-14] MEDS: Cyanocobalamin (Vitamin B12) 1,000 MCG Tab PO SCH (08:03)
[2016-11-14] MEDS: Docusate Sodium 100 MG Cap PO SCH (08:03)
[2016-11-14] MEDS: Fluticasone Propionate Nasal Spray 16 GM Bottle **OWN MED NASBOTH SCH (08:03)
[2016-11-14] MEDS: Cholecalciferol (Vitamin D3) 1,000 Unit Tab PO SCH (08:03)
[2016-11-14] MEDS: Bisacodyl 5 MG Tab PO PRN (08:05)
[2016-11-14] MEDS: Ascorbic Acid 500 MG Tab PO SCH (08:05)
--- NOTE | 2016-11-14 16:53 | PCM.SN ---
- Free Text/Narrative Note: To Whom It May Concern: Mr. Epps needs a chaitanya lift at home for his caregivers to use in getting him to the commode. Please let me know if you have any questions or concerns. Sincerely, Dr. Mcqueen
--- NOTE | 2016-11-14 16:59 | PCM.PN ---
- General Info Date of Service: 11/14/16 Subjective Update: Patient is overall stable. He did not find much benefit with the solu-medrol given last month. He remains quite weak. Services have been arranged for him to have caregivers twice/day and this will start later this week; therefore, the plan is to dismiss home on . He has struggled with constipation and his medications are being adjusted as he requests. Otherwise, he denies any concerns. - Review of Systems General: Reports: No Symptoms HEENT: Reports: No Symptoms Pulmonary: Reports: No Symptoms Cardiovascular: Reports: No Symptoms Gastrointestinal: Reports: Constipation. Denies: Decreased Appetite, Diarrhea, Difficulty Swallowing Genitourinary: Reports: No Symptoms Musculoskeletal: Reports: No Symptoms Skin: Reports: No Symptoms Neurological: Reports: No Symptoms - Patient Data Vitals - Most Recent: Last Vital Signs Temp 36.2 C 11/14/16 05:52 Pulse 76 11/14/16 05:52 Resp 12 11/14/16 05:52 BP 138/79 11/14/16 05:52 Pulse Ox 98 11/14/16 05:52 Weight - Most Recent: 116.346 kg I&O - Last 24 Hours: Intake & Output 11/14/16 11/14/16 11/14/16 06:59 14:59 22:59 Intake Total 300 Balance 300 Med Orders - Current: Current Medications Acetaminophen (Tylenol) 650 mg PO Q4H PRN PRN Reason: Pain (mild 1-3) Last Admin: 11/02/16 09:49 Dose: 650 mg Ascorbic Acid (Vitamin C) 500 mg PO Q3D [facility] Last Admin: 11/14/16 08:05 Dose: 500 mg Bisacodyl (Dulcolax) 10 mg PO DAILY PRN PRN Reason: Constipation Last Admin: 11/14/16 08:05 Dose: 10 mg Cholecalciferol (Vitamin D3) 4,000 units PO DAILY [facility] Last Admin: 11/14/16 08:03 Dose: 4,000 units Cyanocobalamin (Vitamin B12) 1,000 mcg PO DAILY [facility] Last Admin: 11/14/16 08:03 Dose: 1,000 mcg Docusate Sodium (Colace) 100 mg PO DAILY [facility] Last Admin: 11/14/16 08:03 Dose: 100 mg Fluticasone Propionate (Flonase) 0 gm NASBOTH DAILY [facility] Last Admin: 11/14/16 08:03 Dose: 1 spray Magnesium Hydroxide (Milk Of Magnesia) 30 ml PO DAILY PRN PRN Reason: Constipation Last Admin: 11/10/16 19:52 Dose: 30 ml Multivitamins/Minerals (Thera M Plus) 1 tab PO DAILY [facility] Last Admin: 11/14/16 08:03 Dose: 1 tab Polyethylene Glycol (Miralax) 17 gm PO DAILY PRN PRN Reason: Constipation Senna/Docusate Sodium (Senna Plus) 2 tab PO BEDTIME PRN PRN Reason: Constipation Last Admin: 10/28/16 21:02 Dose: 2 tab Discontinued Medications Ascorbic Acid (Vitamin C) 500 mg PO Q3D [facility] Last Admin: 10/18/16 08:13 Dose: 500 mg Bisacodyl (Dulcolax) 10 mg RECTAL ONETIME ONE Stop: 10/09/16 15:38 Last Admin: 10/09/16 15:46 Dose: 10 mg Bisacodyl (Dulcolax) 10 mg RECTAL ONETIME ONE Stop: 10/16/16 16:06 Last Admin: 10/16/16 16:05 Dose: 10 mg Methylprednisolone Sodium Succinate 1,000 mg/ Sodium Chloride 108 mls @ 200 mls /hr IV Q24H [facility] Stop: 10/21/16 10:03 Last Admin: 10/21/16 12:26 Dose: 125 mls/hr Magnesium Hydroxide (Milk Of Magnesia) 30 ml PO ONETIME ONE Stop: 10/09/16 17:39 Last Admin: 10/09/16 17:46 Dose: 30 ml Non-Formulary Medication (Docusate Sodium [Colace]) 100 mg PO DAILY [facility] Polyethylene Glycol (Miralax) 17 gm PO DAILY [facility] Last Admin: 11/09/16 07:40 Dose: Not Given Senna/Docusate Sodium (Senna Plus) 2 tab PO BEDTIME PRN PRN Reason: Constipation - Exam General: Alert, Oriented, Cooperative, No Acute Distress HEENT: Pupils Equal, Pupils Reactive, Mucous Membr. Moist/[place] Neck: Supple, Trachea Midline, No Thyromegaly. No: Lymphadenopathy Lungs: Clear to Auscultation, Normal Respiratory Effort Cardiovascular: Regular Rate, Regular Rhythm, No Murmurs GI/Abdominal Exam: Normal Bowel Sounds, Soft, Non-Tender, No Organomegaly, No Distention, No Mass Extremities: Normal Inspection, No Pedal Edema Skin: Warm, Dry, Intact - Problem List & Annotations (1) Weakness generalized SNOMED Code(s): 62200276 Code(s): R53.1 - WEAKNESS Status: Acute Current Visit: No Annotation/ Comment:: - Secondary to MS. - PT/OT/SW consults. He will complete therapies this week and then dismiss home with caregiver assistance. (2) Multiple sclerosis SNOMED Code(s): 31550737 Code(s): G35 - MULTIPLE SCLEROSIS Status: Acute Current Visit: No Annotation/Comment:: - Following with neurology; plan at this point is to continue the ocrevus. - Really no benefit with the solu-medrol so would not plan further dosing at this time. - Will need additional assistance upon returning home and this is being arranged. (3) Allergic rhinitis SNOMED Code(s): 16667596 Code(s): J30.9 - ALLERGIC RHINITIS, UNSPECIFIED Status: Chronic Current Visit: No Qualifiers: Allergic rhinitis trigger: unspecified Allergic rhinitis seasonality: seasonal Annotation/Comment:: Flonase continued. (4) Constipation SNOMED Code(s): 45722422 Code(s): K59.00 - CONSTIPATION, UNSPECIFIED Status: Chronic Current Visit : No Qualifiers: Constipation type: unspecified constipation type Qualified Code(s): K59.00 - Constipation, unspecified Annotation/Comment:: - Will continue to adjust medications in order to achieve more regular bowel movements. (5) Neurogenic bladder SNOMED Code(s): 231909007 Code(s): N31.9 - NEUROMUSCULAR DYSFUNCTION OF BLADDER, UNSPECIFIED Status: Chronic Current Visit: No Annotation/Comment:: - Not on any medications due to intolerance to oxybutynin in the past. - Problem List Review Problem List Initiated/Reviewed/Updated: Yes - Assessment Assessment:: 41 yo male admitted with generalized weakness secondary to MS. He is here for rehab and disposition planning. Although there has not been much improvement in functional status, we have been able to arrange additional help at home. - Plan Plan:: See details under problems above. PT/OT will be completed this week. [facility] has arranged additional supports at home. Continue home medications. TEDS for VTE prophylaxis; nothing else as he is at baseline functional status. Wishes to be full code. Plan is to return home later this week with additional supports as mentioned.
[2016-11-15] MEDS: Cholecalciferol (Vitamin D3) 1,000 Unit Tab PO SCH (07:27)
[2016-11-15] MEDS: Cyanocobalamin (Vitamin B12) 1,000 MCG Tab PO SCH (07:28)
[2016-11-15] MEDS: Fluticasone Propionate Nasal Spray 16 GM Bottle **OWN MED NASBOTH SCH (07:28)
[2016-11-15] MEDS: Multivitamins with Iron/Calcium/Folic Acid/Minerals Tab PO SCH (07:28)
[2016-11-15] MEDS: Docusate Sodium 100 MG Cap PO SCH ×2 (07:28→07:30)
[2016-11-16] MEDS: Cholecalciferol (Vitamin D3) 1,000 Unit Tab PO SCH (07:26)
[2016-11-16] MEDS: Multivitamins with Iron/Calcium/Folic Acid/Minerals Tab PO SCH (07:26)
[2016-11-16] MEDS: Cyanocobalamin (Vitamin B12) 1,000 MCG Tab PO SCH (07:26)
[2016-11-16] MEDS: Fluticasone Propionate Nasal Spray 16 GM Bottle **OWN MED NASBOTH SCH (07:27)
[2016-11-16] MEDS: Docusate Sodium 100 MG Cap PO SCH (07:27)
[2016-11-17] MEDS: Docusate Sodium 100 MG Cap PO SCH (07:48)
[2016-11-17] MEDS: Cyanocobalamin (Vitamin B12) 1,000 MCG Tab PO SCH (07:48)
[2016-11-17] MEDS: Cholecalciferol (Vitamin D3) 1,000 Unit Tab PO SCH (07:48)
[2016-11-17] MEDS: Multivitamins with Iron/Calcium/Folic Acid/Minerals Tab PO SCH (07:48)
[2016-11-17] MEDS: Fluticasone Propionate Nasal Spray 16 GM Bottle **OWN MED NASBOTH SCH (07:49)
[2016-11-17] MEDS: Ascorbic Acid 500 MG Tab PO SCH (07:51)
[2016-11-18] MEDS: Cholecalciferol (Vitamin D3) 1,000 Unit Tab PO SCH (07:44)
[2016-11-18] MEDS: Multivitamins with Iron/Calcium/Folic Acid/Minerals Tab PO SCH (07:44)
[2016-11-18] MEDS: Cyanocobalamin (Vitamin B12) 1,000 MCG Tab PO SCH (07:44)
[2016-11-18] MEDS: Fluticasone Propionate Nasal Spray 16 GM Bottle **OWN MED NASBOTH SCH (07:44)
[2016-11-18] MEDS: Docusate Sodium 100 MG Cap PO SCH (07:44)
[2016-11-18] MEDS: Bisacodyl 5 MG Tab PO PRN (15:48)
[2016-11-19] MEDS: Fluticasone Propionate Nasal Spray 16 GM Bottle **OWN MED NASBOTH SCH (07:53)
[2016-11-19] MEDS: Docusate Sodium 100 MG Cap PO SCH (07:54)
[2016-11-19] MEDS: Cyanocobalamin (Vitamin B12) 1,000 MCG Tab PO SCH (07:54)
[2016-11-19] MEDS: Multivitamins with Iron/Calcium/Folic Acid/Minerals Tab PO SCH (07:54)
[2016-11-19] MEDS: Cholecalciferol (Vitamin D3) 1,000 Unit Tab PO SCH (07:54)
[2016-11-19] MEDS: Bisacodyl 5 MG Tab PO PRN (07:55)
[2016-11-19] MEDS: Acetaminophen 325 MG Tab PO PRN (22:17)
[2016-11-20] MEDS: Docusate Sodium 100 MG Cap PO SCH (07:45)
[2016-11-20] MEDS: Fluticasone Propionate Nasal Spray 16 GM Bottle **OWN MED NASBOTH SCH (07:45)
[2016-11-20] MEDS: Cholecalciferol (Vitamin D3) 1,000 Unit Tab PO SCH (07:45)
[2016-11-20] MEDS: Multivitamins with Iron/Calcium/Folic Acid/Minerals Tab PO SCH (07:45)
[2016-11-20] MEDS: Cyanocobalamin (Vitamin B12) 1,000 MCG Tab PO SCH (07:45)
[2016-11-20] MEDS: Ascorbic Acid 500 MG Tab PO SCH (07:49)
[2016-11-21] MEDS: Cyanocobalamin (Vitamin B12) 1,000 MCG Tab PO SCH (07:51)
[2016-11-21] MEDS: Multivitamins with Iron/Calcium/Folic Acid/Minerals Tab PO SCH (07:51)
[2016-11-21] MEDS: Cholecalciferol (Vitamin D3) 1,000 Unit Tab PO SCH (07:51)
[2016-11-21] MEDS: Docusate Sodium 100 MG Cap PO SCH (07:51)
[2016-11-21] MEDS: Fluticasone Propionate Nasal Spray 16 GM Bottle **OWN MED NASBOTH SCH (07:52)
--- NOTE | 2016-11-21 16:52 | PCM.DCSUM1 ---
Discharge Summary - Hospital Course Brief History: Mr. Epps is a 41 yo male who was admitted to swing bed for rehab and disposition planning after presenting with generalized weakness secondary to progressive MS. - Discharge Data Discharge Date: 11/22/16 Discharge Disposition: Home, Self-Care 01 Condition: Good - Discharge Diagnosis/Problem(s) (1) Weakness generalized SNOMED Code(s): 78087552 ICD Code: R53.1 - WEAKNESS Status: Acute Current Visit: No Problem Details: He has had physical and occupational therapy while admitted. Social work has been able to work with him to get caregiver assistance in his home for just shy of 8 hours/day. It is felt by therapy that this is a reasonable plan at this time. (2) Multiple sclerosis SNOMED Code(s): 15940149 ICD Code: G35 - MULTIPLE SCLEROSIS Status: Acute Current Visit: No Problem Details: As above. He has gained as much functional status as it is felt he will at this point. He is following with neurology; plan at this point is to continue the ocrevus. He did get a 3 day course of solu-medrol during this stay without much benefit and it is felt by neurology this represents overall progression rather than an acute flare. (3) Allergic rhinitis SNOMED Code(s): 73134154 ICD Code: J30.9 - ALLERGIC RHINITIS, UNSPECIFIED Status: Chronic Current Visit: No Problem Details: Flonase continued. Qualifiers: Allergic rhinitis trigger: unspecified Allergic rhinitis seasonality: seasonal (4) Constipation SNOMED Code(s): 27447738 ICD Code: K59.00 - CONSTIPATION, UNSPECIFIED Status: Chronic Current Visit: No Problem Details: His medications were periodically adjust in attempts to achieve more regular bowel movements. We discussed that he will likely continue to need to adjust things after returning home. Qualifiers: Constipation type: unspecified constipation type Qualified Code(s): K59.00 - Constipation, unspecified (5) Neurogenic bladder SNOMED Code(s): 094225866 ICD Code: N31.9 - NEUROMUSCULAR DYSFUNCTION OF BLADDER, UNSPECIFIED Status : Chronic Current Visit: No Problem Details: Not on any medications due to intolerance to oxybutynin in the past. He is considering a suprapubic catheter but is not sure at this time. - Patient Summary/Data Operative Procedure(s) Performed: none Complications: none Consults: Consultations 09/29/16 15:27 Consult to Case Management [CONS] Routine PT Evaluation and Treatment [CONS] Routine Labs Pending at D/C: none Recommended Follow-up Testing/Procedures: none Planned Operative Procedure(s) after DC: none Hospital Course: See above. He did progress some with therapy but then was felt to be at his new baseline. Arrangements were made for additional home supports and he will be dismissed home on 11/22. - Patient Instructions Diet: Usual Diet as Tolerated Activity: As Tolerated Driving: Do Not Drive Showering/Bathing: May Shower Notify Provider of: Fever, Increased Pain, Swelling and Redness, Nausea and/or Vomiting - Discharge Plan Home Medications: Home Meds Acetaminophen 650 mg PO Q4H PRN 04/22/16 [History] Docusate Sodium [Colace] 100 mg PO DAILY 04/22/16 [History] Cholecalciferol (Vitamin D3) [Vitamin D3] 4,000 unit PO DAILY 05/31/16 [History] Fluticasone Propionate [Flonase] 1 spray NASBOTH DAILY 05/31/16 [History] Multivits,Ca,Minerals/Iron/FA [Thera-M] 1 tab PO DAILY 05/31/16 [History] Ascorbic Acid 500 mg PO Q3D 07/11/16 [History] Bisacodyl [Dulcolax] 10 mg PO DAILY PRN 07/11/16 [History] Cyanocobalamin (Vitamin B12) [Vitamin B12] 1,000 mcg PO DAILY 07/11/16 [History] Sennosides/Docusate Sodium [Senna S Tablet] 2 tab PO BEDTIME PRN 07/11/16 [ History] - Discharge Summary/Plan Comment DC Time >30 min.: No - General Info Date of Service: 11/21/16 Subjective Update: Patient seen today in anticipation of discharge home tomorrow. Doing well without complaints. Excited to dismiss home tomorrow. - Review of Systems General: Reports: No Symptoms HEENT: Reports: No Symptoms Pulmonary: Reports: No Symptoms Cardiovascular: Reports: No Symptoms Gastrointestinal: Reports: No Symptoms Genitourinary: Reports: No Symptoms Musculoskeletal: Reports: No Symptoms Skin: Reports: No Symptoms - Patient Data Vitals - Most Recent: Last Vital Signs Temp 36.6 C 11/21/16 06:00 Pulse 68 11/21/16 06:00 Resp 16 11/21/16 06:00 BP 119/79 11/21/16 06:00 Pulse Ox 99 11/21/16 06:00 Weight - Most Recent: 116.346 kg I&O - Last 24 hours: Intake & Output 11/21/16 11/21/16 11/21/16 06:59 14:59 22:59 Intake Total 240 Balance 240 Med Orders - Current: Current Medications Acetaminophen (Tylenol) 650 mg PO Q4H PRN PRN Reason: Pain (mild 1-3) Last Admin: 11/19/16 22:17 Dose: 650 mg Ascorbic Acid (Vitamin C) 500 mg PO Q3D [facility] Last Admin: 11/20/16 07:49 Dose: 500 mg Bisacodyl (Dulcolax) 10 mg PO DAILY PRN PRN Reason: Constipation Last Admin: 11/19/16 07:55 Dose: 10 mg Cholecalciferol (Vitamin D3) 4,000 units PO DAILY [facility] Last Admin: 11/21/16 07:51 Dose: 4,000 units Cyanocobalamin (Vitamin B12) 1,000 mcg PO DAILY [facility] Last Admin: 11/21/16 07:51 Dose: 1,000 mcg Docusate Sodium (Colace) 100 mg PO DAILY [facility] Last Admin: 11/21/16 07:51 Dose: 100 mg Fluticasone Propionate (Flonase) 0 gm NASBOTH DAILY [facility] Last Admin: 11/21/16 07:52 Dose: 1 spray Magnesium Hydroxide (Milk Of Magnesia) 30 ml PO DAILY PRN PRN Reason: Constipation Last Admin: 11/10/16 19:52 Dose: 30 ml Multivitamins/Minerals (Thera M Plus) 1 tab PO DAILY [facility] Last Admin: 11/21/16 07:51 Dose: 1 tab Polyethylene Glycol (Miralax) 17 gm PO DAILY PRN PRN Reason: Constipation Senna/Docusate Sodium (Senna Plus) 2 tab PO BEDTIME PRN PRN Reason: Constipation Last Admin: 11/19/16 22:18 Dose: 2 tab Discontinued Medications Ascorbic Acid (Vitamin C) 500 mg PO Q3D [facility] Last Admin: 10/18/16 08:13 Dose: 500 mg Bisacodyl (Dulcolax) 10 mg RECTAL ONETIME ONE Stop: 10/09/16 15:38 Last Admin: 10/09/16 15:46 Dose: 10 mg Bisacodyl (Dulcolax) 10 mg RECTAL ONETIME ONE Stop: 10/16/16 16:06 Last Admin: 10/16/16 16:05 Dose: 10 mg Methylprednisolone Sodium Succinate 1,000 mg/ Sodium Chloride 108 mls @ 200 mls /hr IV Q24H ORAL Stop: 10/21/16 10:03 Last Admin: 10/21/16 12:26 Dose: 125 mls/hr Magnesium Hydroxide (Milk Of Magnesia) 30 ml PO ONETIME ONE Stop: 10/09/16 17:39 Last Admin: 10/09/16 17:46 Dose: 30 ml Non-Formulary Medication (Docusate Sodium [Colace]) 100 mg PO DAILY [facility] Polyethylene Glycol (Miralax) 17 gm PO DAILY [facility] Last Admin: 11/09/16 07:40 Dose: Not Given Senna/Docusate Sodium (Senna Plus) 2 tab PO BEDTIME PRN PRN Reason: Constipation - Exam General: Reports: Alert, Oriented, Cooperative, No Acute Distress HEENT: Reports: Pupils Equal, Pupils Reactive, Mucous Membr. Moist/Sea Breeze Neck: Reports: Supple, Trachea Midline, No Thyromegaly. Denies: Lymphadenopathy Lungs: Reports: Clear to Auscultation, Normal Respiratory Effort Cardiovascular: Reports: Regular Rate, Regular Rhythm, No Murmurs GI/Abdominal Exam: Normal Bowel Sounds, Soft, Non-Tender, No Organomegaly, No Distention, No Mass Extremities: Normal Inspection, No Pedal Edema, Normal Capillary Refill Skin: Reports: Warm, Dry, Intact Neurological: Reports: No New Focal Deficit *Q Meaningful Use (DIS) - VTE *Q VTE Criteria *Q: VTE Pharmacological Contraindications *Q: Anticoagult Allerg no Alt - Stroke *Q Stroke Criteria *Q: - AMI *Q AMI Criteria *Q:
[2016-11-22 06:18] VITALS: BP 124/82
[2016-11-22] MEDS: Cholecalciferol (Vitamin D3) 1,000 Unit Tab PO SCH (07:21)
[2016-11-22] MEDS: Multivitamins with Iron/Calcium/Folic Acid/Minerals Tab PO SCH (07:21)
[2016-11-22] MEDS: Cyanocobalamin (Vitamin B12) 1,000 MCG Tab PO SCH (07:21)
[2016-11-22] MEDS: Docusate Sodium 100 MG Cap PO SCH (07:21)
[2016-11-22] MEDS: Fluticasone Propionate Nasal Spray 16 GM Bottle **OWN MED NASBOTH SCH (07:21)
== END 2016-11-22 09:00 | disposition home or self-care (01) | DRG 948 ==
LOC: VM.MS 14:09
PROVIDERS: ADMIT Family Medicine; ATTEND Family Medicine
DX: R53.1 Weakness (principal); G35 Multiple sclerosis; J30.9 Allergic rhinitis, unspecified; K59.00 Constipation, unspecified; N31.9 Neuromuscular dysfunction of bladder, unspecified; Z88.8 Allergy status to other drugs, medicaments and biological substances; Z79.899 Other long term (current) drug therapy
CPT/HCPCS: 97110-GO; 97110-GP; 97161-GP; 97165-GO; 97168-GO; 97530-GP; A9270-GY; J2930; J7050

== ENCOUNTER 2017-04-26 08:10 | Emergency (ER) | payer MEDICARE, MEDICAID ==
[2017-04-26] MEDS ORDERED: Sodium Chloride 0.9% 10 ML Syringe FLUSH PRN (08:19)
[2017-04-26] MEDS ORDERED: Sodium Chloride 0.9% 1,000 ML IV ONE (08:20)
--- NOTE | 2017-04-26 08:21 | EDM.PDOC ---
ED HPI GENERAL MEDICAL PROBLEM - General Chief Complaint: Respiratory Problem Stated Complaint: Fever; Productive cough; Increased weakness Time Seen by Provider: 04/26/17 08:18 Source of Information: Reports: Patient, EMS Notes Reviewed, RN, RN Notes Reviewed History Limitations: Reports: No Limitations - History of Present Illness INITIAL COMMENTS - FREE TEXT/NARRATIVE: Patient is brought to the ED at [facility] via EMS for a 3-4 day history of a productive cough, fevers, sinus congestion, and increased weakness. Patient states he was seen at the [facility] yesterday for his sinus concerns. Patient states he was given a prescription for Flonase and sent home. He states his symptoms have progressively gotten worse. He is concerned with the increased weakness due to a history of MS. Patient states he feels somewhat SOB. He states he has wheezing. No chest pain. No new focal neurological deficits. Patient denies any N/V/D. Onset Date: 04/22/17 - Related Data Allergies Allergy/AdvReac Type Severity Reaction Status Date / Time ceftriaxone sodium Allergy Rash Verified 09/28/16 08:05 [From [place]] Dairy Products Allergy Diarrhea Verified 04/26/17 08:53 gluten Allergy Diarrhea Verified 04/26/17 08:53 Home Meds: Home Meds Acetaminophen 650 mg PO Q4H PRN 04/22/16 [History] Docusate Sodium [Colace] 100 mg PO DAILY 04/22/16 [History] Cholecalciferol (Vitamin D3) [Vitamin D3] 4,000 unit PO DAILY 05/31/16 [History] Fluticasone Propionate [Flonase] 1 spray NASBOTH DAILY 05/31/16 [History] Multivits,Ca,Minerals/Iron/FA [Thera-M] 1 tab PO DAILY 05/31/16 [History] Ascorbic Acid 500 mg PO Q3D 07/11/16 [History] Bisacodyl [Dulcolax] 10 mg PO DAILY PRN 07/11/16 [History] Cyanocobalamin (Vitamin B12) [Vitamin B12] 1,000 mcg PO DAILY 07/11/16 [History] Sennosides/Docusate Sodium [Senna S Tablet] 2 tab PO BEDTIME PRN 07/11/16 [ History] Azithromycin [IMW: Azithromycin] 250 mg PO DAILY 5 Days #6 tab 04/26/17 [Rx] Past Medical History Genitourinary History: Reports: Neurogenic Bladder Other Musculoskeletal History: MS dx 2000 with recent exacerbation Neurological History: Reports: MS - Past Surgical History Neurological Surgical History: Reports: None Social & Family History - Family History Family Medical History: Noncontributory HEENT: Reports: Glaucoma Cardiac: Reports: [place] : Reports: Dialysis Endocrine/Metabolic: Reports: Diabetes, type II - Tobacco Use Smoking Status *Q: Never Smoker Tobacco Use Within Last Twelve Months: No Second Hand Smoke Exposure: No - Caffeine Use Caffeine Use: Reports: None Caffeine Use Comment: green tea - Alcohol Use Days Per Week of Alcohol Use: 0 - Recreational Drug Use Recreational Drug Use: No Drug Use in Last 12 Months: No - Living Situation & Occupation Living situation: Reports: Alone (considering transition to a SNF but is not ready for that yet) Occupation: Disabled ED ROS GENERAL - Review of Systems Review Of Systems: See Below Constitutional: Reports: Fever, Weakness. Denies: Chills, Decreased Appetite HEENT: Reports: Rhinitis, Sinus Problem. Denies: Ear Pain, Eye Discharge, Throat Pain Respiratory: Reports: Shortness of Breath, Wheezing, Cough, Sputum Cardiovascular: Denies: Chest Pain, Palpitations GI/Abdominal: Denies: Abdominal Pain, Nausea, Vomiting Skin: Reports: No Symptoms Neurological: Reports: Weakness. Denies: Dizziness, Headache ED EXAM, GENERAL - Physical Exam Exam: See Below Exam Limited By: No Limitations General Appearance: Alert, No Apparent Distress Eye Exam: Bilateral Eye: Normal Inspection, PERRL Ears: Normal External Exam, Normal Canal, Normal TMs Ear Exam: Bilateral Ear: TM normal Nose: Nasal Drainage Throat/Mouth: Normal Inspection, Normal Oropharynx, No Airway Compromise Neck: Supple Respiratory/Chest: Decreased Breath Sounds, Rhonchi, Wheezing Cardiovascular: Normal Peripheral Pulses, Regular Rate, Rhythm Peripheral Pulses: 2+: Radial (L), Radial (R) GI/Abdominal: Soft, Non-Tender, Abnormal Bowel Sounds (Hypoactive) Neurological: Alert, Oriented Skin Exam: Warm, Dry, Intact, Normal Color, No Rash Course - Vital Signs Last Recorded V/S: Last Vital Signs Temp 37.8 C 04/26/17 08:10 Pulse 90 04/26/17 08:10 Resp 20 04/26/17 08:10 BP 138/98 H 04/26/17 08:10 Pulse Ox 97 04/26/17 08:10 - Orders/Labs/Meds Orders: Active Orders 24 hr Category Date Time Status RT Aerosol Therapy [RC] ASDIRECTED Care 04/26/17 08:28 Active Chest 1V Frontal [CR] Stat Exams 04/26/17 08:19 Taken CULTURE BLOOD [BC] Stat Lab 04/26/17 08:38 Received CULTURE BLOOD [BC] Stat Lab 04/26/17 08:46 Received Sodium Chloride 0.9% [Saline Flush] Med 04/26/17 08:19 Active 10 ml FLUSH ASDIRECTED PRN Blood Culture x2 Reflex Set [OM.PC] Stat Oth 04/26/17 08:18 Ordered Peripheral IV Insertion Adult [OM.PC] Routine Oth 04/26/17 08:19 Ordered Medication Orders Sodium Chloride (Saline Flush) 10 ml FLUSH ASDIRECTED PRN PRN Reason: Keep Vein Open Labs: Laboratory Tests 04/26/17 04/26/17 04/26/17 Range/Units 08:38 08:38 08:38 WBC 11.6 H (4.0-10.0) x10^3/uL RBC 4.88 (4.5-6.0) x10^6/uL Hgb 14.6 (14.0-18.0) g/dL Hct 43.8 (40.0-52.0) % MCV 89.8 (78.0-93.0) fL MCH 29.9 (26.0-32.0) pg MCHC 33.3 (32.0-36.0) g/dL RDW Coeff of Henry 14.0 (10.0-15.0) % Plt Count 246 (130-400) x10^3/uL Neut % (Auto) 85.8 H (50.0-80.0) % Lymph % (Auto) 6.8 L (25.0-50.0) % [place] % (Auto) 6.6 (2.0-11.0) % Eos % (Auto) 0.7 (0.0-4.0) % Baso % (Auto) 0.1 L (0.2-1.2) % Sodium 142 (136-145) mmol/L Potassium 3.8 (3.5-5.1) mmol/L Chloride 104 (98-107) mmol/L Carbon Dioxide 26 (21-32) mmol/L BUN 13 (7-18) mg/dL Creatinine 0.8 (0.70-1.30) mg/dL Est Cr Clr Drug Dosing TNP Estimated GFR (MDRD) > 60 Glucose 90 (74-106) mg/dL Lactic Acid 0.9 (0.4-2.0) mmol/L Calcium 8.5 (8.5-10.1) mg/dL C-Reactive Protein 2.7 H (<=0.9) mg/dL Meds: Medications Generic Name Dose Route Start Last Admin Trade Name Freq PRN Reason Stop Dose Admin Sodium Chloride 10 ml 04/26/17 08:19 Saline Flush FLUSH ASDIRECTED PRN Keep Vein Open Discontinued Medications Generic Name Dose Route Start Last Admin Trade Name Freq PRN Reason Stop Dose Admin Albuterol/Ipratropium 3 ml 04/26/17 08:28 04/26/17 08:47 Duoneb 3.0-0.5 Mg/3 Ml NEB 04/26/17 08:29 3 ml ONETIME ONE Administration Sodium Chloride 1,000 mls @ 999 mls/hr 04/26/17 08:20 04/26/17 08:45 Normal Saline IV 04/26/17 09:20 999 mls/hr ONETIME ONE Administration - Radiology Interpretation Free Text/Narrative:: CXR 1V Portable: No acute findings - see scanned report in EMR Departure - Departure Time of Disposition: 09:53 Disposition: Home, Self-Care 01 Condition: Good Clinical Impression: Productive cough Acute pansinusitis Qualifiers: Recurrence: non-recurrent Qualified Code(s): J01.40 - Acute pansinusitis, unspecified Fever Qualifiers: Fever type: unspecified Qualified Code(s): R50.9 - Fever, unspecified - Discharge Information Prescriptions: Azithromycin [IMW: Azithromycin] 250 mg PO DAILY 5 Days #6 tab Instructions: Fever, Adult, Sinusitis, Adult, Cough, Adult Referrals: Ember Mcqueen MD [Physician] - Forms: ED Department Discharge Additional Instructions: 1. Stay well hydrated and rest 2. Take antibiotics for the full coarse, even if you are feeling better 3. Drink LOTS of water 4. Recommend over the counter Mucinex 5. Continue taking the Flonase as ordered 6. See your Primary if symptoms are not better in 3-4 days 7. Call with any questions/concerns - Problem List Review Problem List Initiated/Reviewed/Updated: Yes - My Orders Last 24 Hours: My Active Orders 04/26/17 08:18 Blood Culture x2 Reflex Set [OM.PC] Stat 04/26/17 08:19 Chest 1V Frontal [CR] Stat Sodium Chloride 0.9% [Saline Flush] 10 ml FLUSH ASDIRECTED PRN Peripheral IV Insertion Adult [OM.PC] Routine 04/26/17 08:28 RT Aerosol Therapy [RC] ASDIRECTED 04/26/17 08:38 CULTURE BLOOD [BC] Stat 04/26/17 08:46 CULTURE BLOOD [BC] Stat - Assessment/Plan Last 24 Hours: My Active Orders 04/26/17 08:18 Blood Culture x2 Reflex Set [OM.PC] Stat 04/26/17 08:19 Chest 1V Frontal [CR] Stat Sodium Chloride 0.9% [Saline Flush] 10 ml FLUSH ASDIRECTED PRN Peripheral IV Insertion Adult [OM.PC] Routine 04/26/17 08:28 RT Aerosol Therapy [RC] ASDIRECTED 04/26/17 08:38 CULTURE BLOOD [BC] Stat 04/26/17 08:46 CULTURE BLOOD [BC] Stat
[2017-04-26] MEDS ORDERED: Albuterol/Ipratropium 3.0-0.5 MG/3 ML Neb Soln NEB ONE (08:28)
[2017-04-26 09:06] LABS: CHLORIDE,CL 104 mmol/L (98-107); SODIUM,NA 142 mmol/L (136-145)
[2017-04-26 09:10] VITALS: BP 138/98
== END 2017-04-26 10:55 | disposition home or self-care (01) ==
LOC: VM.ED 08:10
DX: J01.40 Acute pansinusitis, unspecified (principal); Z88.1 Allergy status to other antibiotic agents; Z91.011 Allergy to milk products; Z79.899 Other long term (current) drug therapy
CPT/HCPCS: 36415; 71045; 80048; 83605; 85025; 86140; 87040; 87804; 94640; 96360; 96361; 99284; J7030; 99283-GF

== ENCOUNTER 2017-10-01 09:06 | Emergency (ER) | payer MEDICARE, MEDICAID ==
[2017-10-01 09:29] VITALS: BP 136/87
[2017-10-01] MEDS ORDERED: Sodium Chloride 0.9% 10 ML Syringe FLUSH PRN (09:39)
[2017-10-01 10:31] LABS: CHLORIDE,CL 105 mmol/L (98-107); SODIUM,NA 141 mmol/L (136-145)
[2017-10-01] MEDS ORDERED: methylPREDNISolone Sod Succ 1,000 MG in Sodium Chloride 0.9% 100 ML IV ONE (10:53)
[2017-10-01] MEDS ORDERED: Take Home: Doxycycline 100 MG Tab, 4 Tab Pack PO ONE (11:34)
--- NOTE | 2017-10-01 11:34 | EDM.PDOC ---
ED HPI GENERAL MEDICAL PROBLEM - General Chief Complaint: General Stated Complaint: WEAKNESS Time Seen by Provider: 10/01/17 09:15 Source of Information: Reports: Patient History Limitations: Reports: No Limitations - History of Present Illness INITIAL COMMENTS - FREE TEXT/NARRATIVE: Pt. presents to ER with complaints of global weakness. He states that the symptoms started 4 days ago. He talked to his neurologist who advised the pt. be seen in ER. She denies any fever or chills. No dysuria. Denies cough or chest congestion. He denies any skin rashes. He was last hospitalized for UTI and MS exacerbation in 2016. He states that he has been doing well since then. Denies any sore throat or rhinorrhea. He states that he has not recently fallen. Denies any trauma. - Related Data Allergies Allergy/AdvReac Type Severity Reaction Status Date / Time ceftriaxone sodium Allergy Rash Verified 10/01/17 09:34 [From Jenelle] Dairy Products Allergy Diarrhea Verified 10/01/17 09:34 gluten Allergy Diarrhea Verified 10/01/17 09:34 Home Meds: Home Meds Acetaminophen 650 mg PO Q4H PRN 04/22/16 [History] Cholecalciferol (Vitamin D3) [Vitamin D3] 4,000 unit PO DAILY 05/31/16 [History] Fluticasone Propionate [Flonase] 1 spray NASBOTH DAILY 05/31/16 [History] Multivits,Ca,Minerals/Iron/FA [Thera-M] 1 tab PO DAILY 05/31/16 [History] Cyanocobalamin (Vitamin B12) [Vitamin B12] 500 mcg PO BID 07/11/16 [History] Sennosides/Docusate Sodium [Senna-S Tablet] 2 tab PO BEDTIME PRN 07/11/16 [ History] Ocrelizumab [Ocrevus] 300 mg IV Q180D 10/01/17 [History] Past Medical History - Past Health History Medical/Surgical History: Denies Medical/Surgical History HEENT History: Reports: None Cardiovascular History: Reports: None Respiratory History: Reports: None Gastrointestinal History: Reports: None Genitourinary History: Reports: Neurogenic Bladder Musculoskeletal History: Reports: None Other Musculoskeletal History: MS dx 2000 with recent exacerbation Neurological History: Reports: MS Psychiatric History: Reports: None Endocrine/Metabolic History: Reports: None Hematologic History: Reports: None Immunologic History: Reports: None Oncologic (Cancer) History: Reports: None Dermatologic History: Reports: None - Infectious Disease History Infectious Disease History: Reports: None - Past Surgical History Neurological Surgical History: Reports: None Social & Family History - Family History Family Medical History: Noncontributory HEENT: Reports: Glaucoma Cardiac: Reports: [place] : Reports: Dialysis Endocrine/Metabolic: Reports: Diabetes, type II - Tobacco Use Smoking Status *Q: Never Smoker - Caffeine Use Caffeine Use: Reports: None Caffeine Use Comment: green tea - Living Situation & Occupation Living situation: Reports: Alone (considering transition to a SNF but is not ready for that yet) Occupation: Disabled ED ROS GENERAL - Review of Systems Review Of Systems: See Below Constitutional: Reports: No Symptoms HEENT: Reports: No Symptoms Respiratory: Reports: No Symptoms Cardiovascular: Reports: No Symptoms Endocrine: Reports: No Symptoms GI/Abdominal: Reports: No Symptoms : Reports: No Symptoms Musculoskeletal: Reports: No Symptoms Skin: Reports: No Symptoms Neurological: Reports: Weakness Psychiatric: Reports: No Symptoms Hematologic/Lymphatic: Reports: No Symptoms Immunologic: Reports: No Symptoms ED EXAM, GENERAL - Physical Exam Exam: See Below Exam Limited By: No Limitations General Appearance: Alert, WD/WN, No Apparent Distress Eye Exam: Bilateral Eye: EOMI, Normal Fundi, Normal Inspection, PERRL Ears: Normal External Exam, Normal Canal, Hearing Grossly Normal, Normal TMs Ear Exam: Bilateral Ear: Auricle Normal, Canal Normal, TM normal Nose: Normal Inspection, Normal Mucosa, No Blood Throat/Mouth: Normal Inspection, Normal Lips, Normal Teeth, Normal Gums, Normal Oropharynx, Normal Voice, No Airway Compromise Head: Atraumatic, Normocephalic Neck: Normal Inspection, Supple, Non-Tender, Full Range of Motion Respiratory/Chest: No Respiratory Distress, Lungs Clear, Normal Breath Sounds, No Accessory Muscle Use, Chest Non-Tender Cardiovascular: Normal Peripheral Pulses, Regular Rate, Rhythm, No Edema, No Gallop, No JVD, No Murmur, No Rub Peripheral Pulses: 3+: Radial (L), Radial (R) GI/Abdominal: Normal Bowel Sounds, Soft, Non-Tender, No Organomegaly, No Distention, No Abnormal Bruit, No Mass (Male) Exam: Deferred Rectal (Males) Exam: Deferred Back Exam: Normal Inspection, Full Range of Motion. No: CVA Tenderness (L), CVA Tenderness (R) Extremities: Normal Inspection, Normal Range of Motion, Non-Tender, Normal Capillary Refill, No Pedal Edema Neurological: Alert, Oriented, CN II-XII Intact, Normal Cognition, Normal Gait, Sensory/Motor Deficit (global weakness noted to upper and lower extremities.), Other Psychiatric: Normal Affect, Normal Mood Skin Exam: Warm, Dry, Intact, Normal Color, No Rash Lymphatic: No Adenopathy Course - Vital Signs Last Recorded V/S: Last Vital Signs Temp 36.3 C 10/01/17 09:15 Pulse 69 10/01/17 09:15 Resp 16 10/01/17 09:15 BP 136/87 10/01/17 09:15 Pulse Ox 99 10/01/17 09:15 - Orders/Labs/Meds Orders: Active Orders 24 hr Category Date Time Status Chest 1V Frontal [CR] Stat Exams 10/01/17 09:39 Taken CULTURE BLOOD [BC] Stat Lab 10/01/17 10:00 Received CULTURE BLOOD [BC] Stat Lab 10/01/17 10:35 Received Blood Culture x2 Reflex Set [OM.PC] Stat Oth 10/01/17 09:40 Ordered Peripheral IV Insertion Adult [OM.PC] Routine Oth 10/01/17 09:40 Ordered Labs: Laboratory Tests 10/01/17 10/01/17 10/01/17 Range/Units 10:00 10:00 10:00 WBC 5.3 (4.0-10.0) x10^3/uL RBC 4.92 (4.5-6.0) x10^6/uL Hgb 15.0 (14.0-18.0) g/dL Hct 45.6 (40.0-52.0) % MCV 92.7 (78.0-93.0) fL MCH 30.5 (26.0-32.0) pg MCHC 32.9 (32.0-36.0) g/dL RDW Coeff of Henry 13.9 (10.0-15.0) % Plt Count 248 (130-400) x10^3/uL Neut % (Auto) 75.4 (50.0-80.0) % Lymph % (Auto) 13.7 L (25.0-50.0) % Schley % (Auto) 7.7 (2.0-11.0) % Eos % (Auto) 2.8 (0.0-4.0) % Baso % (Auto) 0.4 (0.2-1.2) % PT 10.2 (9.6-11.4) SEC INR 1.0 L (2.0-3.5) Sodium 141 (136-145) mmol/L Potassium 4.3 (3.5-5.1) mmol/L Chloride 105 (98-107) mmol/L Carbon Dioxide 30 (21-32) mmol/L Anion Gap 10.3 (10-20) mmol/L BUN 12 (7-18) mg/dL Creatinine 0.8 (0.70-1.30) mg/dL Est Cr Clr Drug Dosing TNP Estimated GFR (MDRD) > 60 Glucose 82 (74-106) mg/dL Lactic Acid (0.4-2.0) mmol/L Calcium 8.7 (8.5-10.1) mg/dL Corrected Calcium 9.26 (8.5-10.1) mg/dL Phosphorus 3.7 (2.6-4.7) mg/dL Magnesium 1.7 L (1.8-2.4) mg/dL Total Bilirubin 0.5 (0.2-1.0) mg/dL AST 10 L (15-37) U/L ALT 13 L (16-63) U/L Alkaline Phosphatase 66 (46-116) U/L C-Reactive Protein 0.6 (<=0.9) mg/dL Total Protein 6.6 (6.4-8.2) g/dL Albumin 3.3 L (3.4-5.0) g/dL Globulin 3.3 Albumin/Globulin Ratio 1.00 Urine Color (YELLOW) Urine Appearance (CLEAR) Urine pH (5.0-8.0) Ur Specific Otto Urine Protein (NEGATIVE) mg/dL Urine Glucose (UA) (NEGATIVE) mg/dL Urine Ketones (NEGATIVE) mg/dL Urine Occult Blood (NEGATIVE) Urine Nitrite (NEGATIVE) Urine Bilirubin (NEGATIVE) Urine Urobilinogen (0.2) EU/dL Ur Leukocyte Esterase (NEGATIVE) Urine RBC (NOT SEEN) /HPF Urine WBC (NOT SEEN) /HPF Ur Squamous Epith Cells (NEGATIVE) /HPF Urine Bacteria (NEGATIVE) /HPF Urine Mucus (NEGATIVE) /LPF 10/01/17 10/01/17 Range/Units 10:00 10:25 WBC (4.0-10.0) x10^3/uL RBC (4.5-6.0) x10^6/uL Hgb (14.0-18.0) g/dL Hct (40.0-52.0) % MCV (78.0-93.0) fL MCH (26.0-32.0) pg MCHC (32.0-36.0) g/dL RDW Coeff of Henry (10.0-15.0) % Plt Count (130-400) x10^3/uL Neut % (Auto) (50.0-80.0) % Lymph % (Auto) (25.0-50.0) % Schley % (Auto) (2.0-11.0) % Eos % (Auto) (0.0-4.0) % Baso % (Auto) (0.2-1.2) % PT (9.6-11.4) SEC INR (2.0-3.5) Sodium (136-145) mmol/L Potassium (3.5-5.1) mmol/L Chloride (98-107) mmol/L Carbon Dioxide (21-32) mmol/L Anion Gap (10-20) mmol/L BUN (7-18) mg/dL Creatinine (0.70-1.30) mg/dL Est Cr Clr Drug Dosing Estimated GFR (MDRD) Glucose (74-106) mg/dL Lactic Acid 0.7 (0.4-2.0) mmol/L Calcium (8.5-10.1) mg/dL Corrected Calcium (8.5-10.1) mg/dL Phosphorus (2.6-4.7) mg/dL Magnesium (1.8-2.4) mg/dL Total Bilirubin (0.2-1.0) mg/dL AST (15-37) U/L ALT (16-63) U/L Alkaline Phosphatase (46-116) U/L C-Reactive Protein (<=0.9) mg/dL Total Protein (6.4-8.2) g/dL Albumin (3.4-5.0) g/dL Globulin Albumin/Globulin Ratio Urine Color Yellow (YELLOW) Urine Appearance Clear (CLEAR) Urine pH 8.5 H (5.0-8.0) Ur Specific Otto 1.020 Urine Protein Negative (NEGATIVE) mg/dL Urine Glucose (UA) Negative (NEGATIVE) mg/dL Urine Ketones Negative (NEGATIVE) mg/dL Urine Occult Blood Trace-intact H (NEGATIVE) Urine Nitrite Negative (NEGATIVE) Urine Bilirubin Negative (NEGATIVE) Urine Urobilinogen 0.2 (0.2) EU/dL Ur Leukocyte Esterase Negative (NEGATIVE) Urine RBC 0-5 (NOT SEEN) /HPF Urine WBC 0-5 (NOT SEEN) /HPF Ur Squamous Epith Cells Rare (NEGATIVE) /HPF Urine Bacteria Not seen (NEGATIVE) /HPF Urine Mucus Not seen (NEGATIVE) /LPF Meds: Medications Discontinued Medications Generic Name Dose Route Start Last Admin Trade Name Freq PRN Reason Stop Dose Admin Doxycycline Monohydrate 1 packet 10/01/17 11:34 Take Home: Doxycycline 100 Mg, 4 Tab Pack PO 10/01/17 11:35 ONETIME ONE Methylprednisolone Sodium 108 mls @ 200 mls/hr 10/01/17 10:53 10/01/17 11:07 Succinate 1,000 mg/ Sodium IV 10/01/17 11:25 200 mls/hr Chloride ONETIME ONE Administration Sodium Chloride 10 ml 10/01/17 09:39 10/01/17 11:07 Saline Flush FLUSH 10 ml ASDIRECTED PRN Administration Keep Vein Open - Radiology Interpretation Free Text/Narrative:: CXR shows some atelectasis in L lower extremity Departure - Departure Time of Disposition: 11:57 Disposition: Home, Self-Care 01 Clinical Impression: Multiple sclerosis exacerbation - Discharge Information Instructions: Multiple Sclerosis, Community-Acquired Pneumonia, Adult, Easy-to- Read Referrals: Ember Mcqueen MD [Primary Care Provider] - Forms: ED Department Discharge Additional Instructions: You do have some abnormal markings noted on your chest x-ray. I'm going to start you on doxycycline 100mg twice daily for 10 days. Return to ER tomorrow for solu medrol infusion. Follow-up in clinic in 10-14 days, sooner if not improving. - My Orders Last 24 Hours: My Active Orders 10/01/17 09:39 Chest 1V Frontal [CR] Stat 10/01/17 09:40 Blood Culture x2 Reflex Set [OM.PC] Stat Peripheral IV Insertion Adult [OM.PC] Routine 10/01/17 10:00 CULTURE BLOOD [BC] Stat 10/01/17 10:35 CULTURE BLOOD [BC] Stat - Assessment/Plan Last 24 Hours: My Active Orders 10/01/17 09:39 Chest 1V Frontal [CR] Stat 10/01/17 09:40 Blood Culture x2 Reflex Set [OM.PC] Stat Peripheral IV Insertion Adult [OM.PC] Routine 10/01/17 10:00 CULTURE BLOOD [BC] Stat 10/01/17 10:35 CULTURE BLOOD [BC] Stat
== END 2017-10-01 11:57 | disposition home or self-care (01) ==
LOC: VM.ED 09:06
DX: G35 Multiple sclerosis (principal); E11.9 Type 2 diabetes mellitus without complications; Z88.1 Allergy status to other antibiotic agents; Z91.018 Allergy to other foods; Z79.899 Other long term (current) drug therapy
CPT/HCPCS: 36415; 71045; 80053; 81001; 83605; 83735; 84100; 85025; 85610; 86140; 87040; 96365; 99285; J2930; J7050; 99284-GF

== ENCOUNTER 2019-05-14 11:46 | Emergency (ER) | payer MEDICARE, MEDICAID ==
[2019-05-14] MEDS ORDERED: fentaNYL 100 MCG/2 ML SDV ONE (12:32)
--- NOTE | 2019-05-14 13:31 | CR ---
[id number] RAD/RAD Shoulder Left 2V Min; [id number] RAD/RAD Clavicle Left Exam: RAD Shoulder Left 2V Min, RAD Clavicle Left Indication:FALL, LEFT SHOULDER/CLAVICLE PAIN. Comparison: No prior imaging for comparison. Discussion: Acute fracture of the distal left clavicle. Distal fragment is superiorly displaced approximately 6 mm relation to proximal fragment. Acromioclavicular articulation is radiographically intact. Glenohumeral joint demonstrates osteoarthritic arthritis but is otherwise unremarkable. Impression: Acute slightly displaced distal left clavicle fracture. Jose Silva MD 05/14/19 [id number] Thank you for allowing us to participate in the care of your patient.
== END 2019-05-14 13:34 | disposition swing bed (61) ==
LOC: VM.ED 11:46
DX: S42.032A Displaced fracture of lateral end of left clavicle, initial encounter for closed fracture (principal); G35 Multiple sclerosis; Z88.1 Allergy status to other antibiotic agents; Z91.011 Allergy to milk products; Z91.018 Allergy to other foods; W05.0XXA Fall from non-moving wheelchair, initial encounter; Y93.89 Activity, other specified
CPT/HCPCS: 73000-LT; 73030-LT; 96374; 99284-GF; 99285-25; J3010

== ENCOUNTER 2019-05-14 11:46 | Inpatient (IN) | payer MEDICARE, MEDICAID ==
[2019-05-14] MEDS ORDERED: fentaNYL 100 MCG/2 ML SDV IVPUSH ONE (12:21)
--- NOTE | 2019-05-14 13:48 | EDM.PDOC ---
ED HPI GENERAL MEDICAL PROBLEM - General Chief Complaint: Upper Extremity Injury/Pain Time Seen by Provider: 05/14/19 12:00 - History of Present Illness INITIAL COMMENTS - FREE TEXT/NARRATIVE: Patient comes to Er via EMS. Patient states he was transferring from his wheel chair to the bed using a slider board. He missed calculated and fall to the floor, hitting his head and then his shoulder. he remembers hearing a loud crunch and then was having severe pain in the left shoulder. patient has a history of MS diagnosed 2 years ago. Patient is chair fast, usually has assistance 4 times a day with ADLs. Patient denies losing consciousness, denies visual changes. Patient denies chest pain, irregular heart rate or cardiac history. patient has weakness and numbness and tingling in bilateral arms but states it is worse in left arm after fall. Onset: Today Onset Date: 05/14/19 Onset Time: 11:00 Location: Reports: Upper Extremity, Left Quality: Reports: Ache, Sharp Severity: Moderate Improves with: Reports: Immobilization, Rest Worsens with: Reports: Movement Associated Symptoms: Reports: No Other Symptoms Left Shoulder Pain Score (Numeric/FACES): 5 - Related Data Allergies Allergy/AdvReac Type Severity Reaction Status Date / Time ceftriaxone sodium Allergy Rash Verified 05/14/19 12:03 [From Rocephin] Dairy Products AdvReac Diarrhea Verified 05/14/19 12:03 gluten AdvReac Diarrhea Verified 05/14/19 12:03 Home Meds: Home Meds Acetaminophen 650 mg PO Q4H PRN 04/22/16 [History] Cholecalciferol (Vitamin D3) [Vitamin D3] 4,000 unit PO DAILY 05/31/16 [History] Fluticasone Propionate [Flonase] 1 spray NASBOTH DAILY 05/31/16 [History] Multivit,Calc,Mins/Iron/Folic [Thera-M] 1 tab PO DAILY 05/31/16 [History] Cyanocobalamin (Vitamin B12) [Vitamin B12] 500 mcg PO BID 07/11/16 [History] Sennosides/Docusate Sodium [Senna-S Tablet] 2 tab PO BEDTIME PRN 07/11/16 [ History] Ocrelizumab [Ocrevus] 300 mg IV Q180D 10/01/17 [History] lisinopriL [Lisinopril] 10 mg PO DAILY 05/14/19 [History] Past Medical History - Past Health History Medical/Surgical History: Denies Medical/Surgical History HEENT History: Reports: None Cardiovascular History: Reports: None Respiratory History: Reports: None Gastrointestinal History: Reports: None Genitourinary History: Reports: Neurogenic Bladder Musculoskeletal History: Reports: None Other Musculoskeletal History: MS dx 2000 with recent exacerbation Neurological History: Reports: MS Psychiatric History: Reports: None Endocrine/Metabolic History: Reports: None Hematologic History: Reports: None Immunologic History: Reports: None Oncologic (Cancer) History: Reports: None Dermatologic History: Reports: None - Infectious Disease History Infectious Disease History: Reports: None - Past Surgical History Neurological Surgical History: Reports: None Social & Family History - Family History Family Medical History: Noncontributory HEENT: Reports: Glaucoma Cardiac: Reports: [place] : Reports: Dialysis Endocrine/Metabolic: Reports: Diabetes, type II - Tobacco Use Smoking Status *Q: Unknown Ever Smoked - Caffeine Use Caffeine Use: Reports: None Caffeine Use Comment: green tea - Living Situation & Occupation Living situation: Reports: Alone (considering transition to a SNF but is not ready for that yet) Occupation: Disabled Review of Systems - Review of Systems Review Of Systems: See Below Constitutional: Reports: No Symptoms Eyes: Reports: No Symptoms Ears: Reports: No Symptoms. Denies: Dizziness, Tinnitus Nose: Reports: No Symptoms Mouth/Throat: Reports: No Symptoms Respiratory: Reports: No Symptoms. Denies: Shortness of Breath, Wheezing, Cough , Sputum Cardiovascular: Reports: No Symptoms. Denies: Chest Pain, Edema, Irregular Heart Rate, Lightheadedness, Palpitations, Syncope GI/Abdominal: Reports: No Symptoms Genitourinary: Reports: No Symptoms Musculoskeletal: Reports: Other (left shoulder pain, clavicle pain) Skin: Reports: No Symptoms Neurological: Reports: Numbness, Tingling, Weakness. Denies: Confusion, Dizziness, Headache, Syncope, Tremors Psychiatric: Reports: No Symptoms ED EXAM, GENERAL - Physical Exam Exam: See Below Exam Limited By: No Limitations General Appearance: Alert, WD/WN, No Apparent Distress Eye Exam: Bilateral Eye: PERRL Nose: Normal Inspection, Normal Mucosa, No Blood Throat/Mouth: Normal Inspection, Normal Lips, Normal Teeth, Normal Gums, Normal Oropharynx, Normal Voice Head: Atraumatic, Normocephalic Neck: Normal Inspection, Supple, Non-Tender Respiratory/Chest: No Respiratory Distress, Lungs Clear, Normal Breath Sounds, No Accessory Muscle Use, Chest Non-Tender Cardiovascular: Normal Peripheral Pulses, Regular Rate, Rhythm, No Edema, No JVD , No Murmur, No Rub Peripheral Pulses: 2+: Radial (L), Radial (R) GI/Abdominal: Normal Bowel Sounds, Soft, Non-Tender (Male) Exam: Deferred Rectal (Males) Exam: Deferred Extremities: No Pedal Edema, Normal Capillary Refill, Limited Range of Motion, Other (left clavicular tenderness on palpation, pain with movement, limited ROM) . No: Normal Inspection, Normal Range of Motion Neurological: Alert, Oriented, CN II-XII Intact Psychiatric: Normal Affect, Normal Mood Skin Exam: Warm, Dry, Intact, Normal Color, No Rash Lymphatic: No Adenopathy Course - Vital Signs Text/Narrative:: Patient present to ER with left shoulder pain. IV saline locked started in ambulance. left clavicle and scapula xray ordered. IV fentanyl given for pain management. Xray report shows distal clavicle fracture and mild displacement Placed patient in sling Called and update Dr Mcqueen, will be admitting patient swing bed. Last Recorded V/S: Last Vital Signs Temp 36.3 C 05/14/19 11:46 Pulse 88 05/14/19 11:46 Resp 18 05/14/19 11:46 BP 143/78 H 05/14/19 11:46 Pulse Ox 100 05/14/19 11:46 - Orders/Labs/Meds Orders: Active Orders 24 hr Category Date Time Status Patient Status [ADT] Routine ADT 05/14/19 13:35 Active Shoulder Comp Lt [CR] Stat Exams 05/14/19 12:21 Taken Meds: Medications Discontinued Medications Generic Name Dose Route Start Last Admin Trade Name Freq PRN Reason Stop Dose Admin Fentanyl 100 mcg 05/14/19 12:21 05/14/19 12:32 Sublimaze IVPUSH 05/14/19 12:22 100 mcg ONETIME ONE Administration Departure - Departure Time of Disposition: 13:30 Disposition: DC/Tfer W/I Hosp To Swing 61 Condition: Good Clinical Impression: Multiple sclerosis Fracture of clavicle Qualifiers: Encounter type: initial encounter Clavicle location: lateral end Fracture type : closed Fracture alignment: displaced Laterality: left Qualified Code(s): S42.032A - Displaced fracture of lateral end of left clavicle, initial encounter for closed fracture - Discharge Information Referrals: Ember Mcqueen MD [Primary Care Provider] - Additional Instructions: Admit to Swing Bed See orders from Dr. Mcqueen Sepsis Event Note - Evaluation Sepsis Screening Result: No Definite Risk - Focused Exam Vital Signs: Vital Signs Temp Pulse Resp BP Pulse Ox 05/14/19 11:46 36.3 C 88 18 143/78 H 100 Date Exam was Performed: 05/14/19 Time Exam was Performed: 13:43 - My Orders Last 24 Hours: My Active Orders 05/14/19 12:21 Shoulder Comp Lt [CR] Stat 05/14/19 13:35 Patient Status [ADT] Routine - Assessment/Plan Last 24 Hours: My Active Orders 05/14/19 12:21 Shoulder Comp Lt [CR] Stat 05/14/19 13:35 Patient Status [ADT] Routine
--- NOTE | 2019-05-14 14:40 | PCM.HP.2 ---
H&P History of Present Illness - General Date of Service: 05/14/19 Admit Problem/Dx: Admission Diagnosis/Problem Admission Diagnosis/Problem Clavicle injury Source of Information: Patient History Limitations: Reports: No Limitations - History of Present Illness Initial Comments - Free Text/Narative: Mr. Epps is a 44 yo male with PMH of MS, chronic sinusitis, and hypertension who presented to the ER for evaluation of left shoulder pain after a fall at home today. He was attempting to transfer to his bed when the bed slid away from him, causing him to fall. He states he ended up essentially flipping over and hitting his head, then hitting his left shoulder. He has been able to move the shoulder since the injury but with significant pain. He denies any loss of consciousness. He has had no head or neck pain since the injury. He has been slightly more weak than usual since he had to spend a full day in [place] end of last week but no other acute weakness. He did recently have an acute sinusitis that resolved with conservative measures and for which he never required any antibiotics. He denies any other injuries with the fall. Given his history of MS and only intermittent help at home, it was not felt he would be safe to discharge home independently. Left Shoulder Pain Score (Numeric/FACES): 5 - Related Data Allergies/Adverse Reactions: Allergies Allergy/AdvReac Type Severity Reaction Status Date / Time ceftriaxone sodium Allergy Rash Verified 05/14/19 12:03 [From Rocephin] doxycycline Allergy Cannot Verified 05/14/19 14:04 Remember Dairy Products AdvReac Diarrhea Verified 05/14/19 12:03 gluten AdvReac Diarrhea Verified 05/14/19 12:03 Home Medications: Home Meds Acetaminophen 650 mg PO Q4H PRN 04/22/16 [History] Cholecalciferol (Vitamin D3) [Vitamin D3] 4,000 unit PO DAILY 05/31/16 [History] Fluticasone Propionate [Flonase] 1 spray NASBOTH DAILY 05/31/16 [History] Multivit,Calc,Mins/Iron/Folic [Thera-M] 1 tab PO DAILY 05/31/16 [History] Cyanocobalamin (Vitamin B12) [Vitamin B12] 500 mcg PO BID 07/11/16 [History] Sennosides/Docusate Sodium [Senna-S Tablet] 2 tab PO BEDTIME PRN 07/11/16 [ History] Ocrelizumab [Ocrevus] 300 mg IV Q180D 10/01/17 [History] Ascorbic Acid [Vitamin C] 500 mg PO DAILY 05/14/19 [History] lisinopriL [Lisinopril] 10 mg PO DAILY 05/14/19 [History] Past Medical History - Past Health History Medical/Surgical History: Denies Medical/Surgical History HEENT History: Reports: None Cardiovascular History: Reports: None, Other (See Below) Other Cardiovascular History: essential hypertension Respiratory History: Reports: None, Other (See Below) Other Respiratory History: chronic pansinusitis Gastrointestinal History: Reports: None Genitourinary History: Reports: Neurogenic Bladder Musculoskeletal History: Reports: None Other Musculoskeletal History: MS dx 2000 with recent exacerbation Neurological History: Reports: MS Psychiatric History: Reports: None Endocrine/Metabolic History: Reports: None, Obesity/BMI 30+ Hematologic History: Reports: None Immunologic History: Reports: None Oncologic (Cancer) History: Reports: None Dermatologic History: Reports: None - Infectious Disease History Infectious Disease History: Reports: None - Past Surgical History Neurological Surgical History: Reports: None Social & Family History - Family History HEENT: Reports: Glaucoma Cardiac: Reports: [place] : Reports: Dialysis Endocrine/Metabolic: Reports: Diabetes, type II - Tobacco Use Smoking Status *Q: Never Smoker - Caffeine Use Caffeine Use: Reports: None Caffeine Use Comment: green tea - Alcohol Use Alcohol Use History: No Alcohol Use in Last Twelve Months: No - Recreational Drug Use Recreational Drug Use: No - Living Situation & Occupation Living situation: Reports: Single, Alone (considering transition to a SNF but is not ready for that yet) Occupation: Disabled H&P Review of Systems - Review of Systems: Review Of Systems: See Below General: Reports: No Symptoms HEENT: Reports: No Symptoms Pulmonary: Reports: No Symptoms Cardiovascular: Reports: No Symptoms Gastrointestinal: Reports: No Symptoms Genitourinary: Reports: No Symptoms Musculoskeletal: Reports: Shoulder Pain Skin: Reports: No Symptoms Psychiatric: Reports: No Symptoms Neurological: Reports: No Symptoms Hematologic/Lymphatic: Reports: No Symptoms Exam - Exam Exam: See Below - Vital Signs Vital Signs: Last Vital Signs Temp 36.3 C 05/14/19 11:46 Pulse 88 05/14/19 11:46 Resp 18 05/14/19 11:46 BP 143/78 H 05/14/19 11:46 Pulse Ox 100 05/14/19 11:46 - Exam General: Alert, Oriented, Cooperative HEENT: Conjunctiva Clear, Mucosa Moist & [place], Posterior Pharynx Clear, Pupils Equal, Pupils Reactive Neck: Supple, Trachea Midline. No: Lymphadenopathy, Thyromegaly Lungs: Clear to Auscultation, Normal Respiratory Effort Cardiovascular: Regular Rate, Regular Rhythm, Normal S1, Normal S2 GI/Abdominal Exam: Normal Bowel Sounds, Soft, Non-Tender, No Organomegaly, No Distention, No Mass Extremities: Normal Inspection, No Pedal Edema, Normal Capillary Refill, Arm Pain (tenderness to palpation over the lateral clavicle without any skin tenting or other abnormality) Peripheral Pulses: 2+: Radial (L), Radial (R) Skin: Warm, Dry, Intact Sepsis Event Note - Evaluation Sepsis Screening Result: No Definite Risk - Focused Exam Vital Signs: Vital Signs Temp Pulse Resp BP Pulse Ox 05/14/19 11:46 36.3 C 88 18 143/78 H 100 Date Exam was Performed: 05/14/19 Time Exam was Performed: 14:43 *Q Meaningful Use (ADM) - VTE *Q VTE Anticoagulation Contraindications: Med/TX Not Indicated/Need - Problem List (1) Fracture of clavicle SNOMED Code(s): 35198514 ICD Code: S42.009A - FRACTURE OF UNSP PART OF UNSP CLAVICLE, INIT FOR CLOS FX Status: Acute Current Visit: Yes Qualifiers: Encounter type: initial encounter Clavicle location: lateral end Fracture type: closed Fracture alignment: displaced Laterality: left Qualified Code(s): S42.032A - Displaced fracture of lateral end of left clavicle , initial encounter for closed fracture (2) Hypertension SNOMED Code(s): 12849676 ICD Code: I10 - ESSENTIAL (PRIMARY) HYPERTENSION Status: Chronic Current Visit: Yes Qualifiers: Hypertension type: essential hypertension Qualified Code(s): I10 - Essential (primary) hypertension (3) Multiple sclerosis SNOMED Code(s): 05589198 ICD Code: G35 - MULTIPLE SCLEROSIS Status: Chronic Current Visit: Yes (4) Constipation SNOMED Code(s): 74878560 ICD Code: K59.00 - CONSTIPATION, UNSPECIFIED Status: Chronic Current Visit: No Qualifiers: Constipation type: unspecified constipation type Qualified Code(s): K59.00 - Constipation, unspecified (5) Obesity SNOMED Code(s): 563130859, 467572989 ICD Code: E66.9 - OBESITY, UNSPECIFIED Status: Chronic Current Visit: Yes Qualifiers: Obesity type: due to excess calories Obesity classification: adult class 3 (BMI >= 40) (6) Chronic sinusitis SNOMED Code(s): 63801493 ICD Code: J32.9 - CHRONIC SINUSITIS, UNSPECIFIED Status: Chronic Current Visit: Yes Qualifiers: Sinusitis location: unspecified location Qualified Code(s): J32.9 - Chronic sinusitis, unspecified Problem List Initiated/Reviewed/Updated: Yes Orders Last 24hrs: Active Orders 24 hr Category Date Time Status Patient Status [ADT] Routine ADT 05/14/19 13:35 Active Notify Provider Vital Signs [RC] ASDIRECTED Care 05/14/19 14:30 Ordered Oxygen Therapy [RC] PRN Care 05/14/19 14:30 Ordered Up With Assistance [RC] ASDIRECTED Care 05/14/19 14:29 Ordered VTE/DVT Education [RC] PER UNIT ROUTINE Care 05/14/19 14:30 Ordered Vital Signs [RC] PER UNIT ROUTINE Care 05/14/19 14:30 Ordered Consult to Case Management/Signal System Testing Maintainer [CONS] Cons 05/14/19 14:29 Ordered Routine PT Evaluation and Treatment [CONS] Routine Cons 05/14/19 14:29 Ordered Regular Diet [DIET] Diet 05/14/19 Dinner Ordered Acetaminophen [Tylenol Extra Strength] Med 05/14/19 20:00 Ordered 1,000 mg PO TID Ascorbic Acid [Vitamin C] Med 05/15/19 08:00 Ordered 500 mg PO DAILY Cholecalciferol (Vitamin D3) [Vitamin D3] Med 05/15/19 08:00 Ordered 4,000 unit PO DAILY Cyanocobalamin (Vitamin B12) [Vitamin B12] Med 05/14/19 20:00 Ordered 500 mcg PO BID Docusate Sodium/Sennosides [Senna Plus] Med 05/14/19 14:32 Ordered 2 tab PO BEDTIME PRN Fluticasone Propionate [Flonase] Med 05/14/19 20:00 Ordered 1 spray NASBOTH BID Multivit,Calc,Mins/Iron/Folic [Thera-M] Med 05/15/19 08:00 Ordered 1 tab PO DAILY lisinopriL [Prinivil] Med 05/15/19 08:00 Ordered 10 mg PO DAILY Anticoagulation Contraindications VTE [AST] Routine Oth 05/14/19 14:29 Ordered Resuscitation Status Routine Resus Stat 05/14/19 14:29 Ordered Medication Orders Ascorbic Acid (Vitamin C) 500 mg PO DAILY ORAL Fluticasone Propionate (Flonase) gm NASBOTH BID ORAL Lisinopril (Prinivil) 10 mg PO DAILY ORAL Non-Formulary Medication (Cholecalciferol (Vitamin D3) [Vitamin D3]) 4,000 unit PO DAILY ORAL Non-Formulary Medication (Cyanocobalamin (Vitamin B12) [Vitamin B12]) 500 mcg PO BID ORAL Non-Formulary Medication (Multivit,Calc,Mins/Iron/Folic [Thera-M]) 1 tab PO DAILY ORAL Senna/Docusate Sodium (Senna Plus) 2 tab PO BEDTIME PRN PRN Reason: Constipation Assessment/Plan Comment:: 44 yo male admitted to swing bed for assistance with strengthening and ADL's after sustaining a clavicle fracture from a fall at home. #1 Clavicle Fracture - PT consult ordered. - Activity as tolerated. - Scheduled tylenol with PRN oxycodone for breakthrough pain. #2 Hypertension #3 MS #4 Constipation #5 Obesity #6 Chronic sinusitis - Continue home medications. Patient will be admitted to swing bed as it is not felt he would meet criteria for an acute hospitalization. PT consult ordered. Social work consult also ordered to assist with insurance for this swing bed admission as well as possible coordination of care upon return home given reported concerns for how things are going now with Yandy Gamez. Continue home medications. No VTE prophylaxis is indicated as patient is at his usual functional status. Code status is DNR/DNI - discussed with patient on admission.
[2019-05-14] MEDS: oxyCODONE 5 MG Tab (OWN SUPPLY) PO PRN (16:56)
[2019-05-14] MEDS: Cyanocobalamin (Vitamin B12) 250 MCG Tab PO SCH (20:09)
[2019-05-14] MEDS: Acetaminophen 500 MG Tab PO SCH (20:12)
[2019-05-15] MEDS: oxyCODONE 5 MG Tab (OWN SUPPLY) PO PRN ×3 (00:40→17:06)
[2019-05-15] MEDS: FLUTICASONE PROPIONATE NASBOTH SCH ×2 (08:04→19:45)
[2019-05-15] MEDS: Acetaminophen 500 MG Tab PO SCH ×3 (08:05→19:43)
[2019-05-15] MEDS: Cholecalciferol (Vitamin D3) 25 MCG Tab PO SCH (08:07)
[2019-05-15] MEDS: Multivitamins with Iron/Calcium/Folic Acid/Minerals Tab PO SCH (08:07)
[2019-05-15] MEDS: Cyanocobalamin (Vitamin B12) 250 MCG Tab PO SCH ×2 (08:07→19:45)
[2019-05-15] MEDS: Ascorbic Acid 500 MG Tab PO SCH (08:07)
[2019-05-16] MEDS: oxyCODONE 5 MG Tab (OWN SUPPLY) PO PRN (02:50)
[2019-05-16] MEDS: FLUTICASONE PROPIONATE NASBOTH SCH ×2 (09:23→19:58)
[2019-05-16] MEDS: Ascorbic Acid 500 MG Tab PO SCH (09:24)
[2019-05-16] MEDS: Cholecalciferol (Vitamin D3) 25 MCG Tab PO SCH (09:24)
[2019-05-16] MEDS: Multivitamins with Iron/Calcium/Folic Acid/Minerals Tab PO SCH (09:26)
[2019-05-16] MEDS: Cyanocobalamin (Vitamin B12) 250 MCG Tab PO SCH ×2 (09:26→20:01)
[2019-05-16] MEDS: Acetaminophen 500 MG Tab PO SCH ×3 (09:27→19:59)
[2019-05-17] MEDS: oxyCODONE 5 MG Tab (OWN SUPPLY) PO PRN (02:16)
[2019-05-17] MEDS: Multivitamins with Iron/Calcium/Folic Acid/Minerals Tab PO SCH (08:17)
[2019-05-17] MEDS: Acetaminophen 500 MG Tab PO SCH ×3 (08:17→21:06)
[2019-05-17] MEDS: FLUTICASONE PROPIONATE NASBOTH SCH ×2 (08:21→21:06)
[2019-05-17] MEDS: Ascorbic Acid 500 MG Tab PO SCH (08:24)
[2019-05-17] MEDS: Cyanocobalamin (Vitamin B12) 250 MCG Tab PO SCH ×2 (08:24→21:07)
[2019-05-17] MEDS: Cholecalciferol (Vitamin D3) 25 MCG Tab PO SCH (08:24)
[2019-05-18] MEDS: oxyCODONE 5 MG Tab (OWN SUPPLY) PO PRN (02:29)
[2019-05-18] MEDS: Acetaminophen 500 MG Tab PO SCH ×4 (06:33→21:52)
[2019-05-18] MEDS: FLUTICASONE PROPIONATE NASBOTH SCH ×2 (08:24→21:51)
[2019-05-18] MEDS: Multivitamins with Iron/Calcium/Folic Acid/Minerals Tab PO SCH (08:25)
[2019-05-18] MEDS: Ascorbic Acid 500 MG Tab PO SCH (08:28)
[2019-05-18] MEDS: Cholecalciferol (Vitamin D3) 25 MCG Tab PO SCH (08:28)
[2019-05-18] MEDS: Cyanocobalamin (Vitamin B12) 250 MCG Tab PO SCH ×2 (08:28→21:53)
[2019-05-19] MEDS: oxyCODONE 5 MG Tab (OWN SUPPLY) PO PRN (03:07)
[2019-05-19] MEDS: FLUTICASONE PROPIONATE NASBOTH SCH ×2 (08:15→19:47)
[2019-05-19] MEDS: Acetaminophen 500 MG Tab PO SCH ×3 (08:17→19:47)
[2019-05-19] MEDS: Ascorbic Acid 500 MG Tab PO SCH (08:18)
[2019-05-19] MEDS: Cholecalciferol (Vitamin D3) 25 MCG Tab PO SCH (08:18)
[2019-05-19] MEDS: Cyanocobalamin (Vitamin B12) 250 MCG Tab PO SCH ×2 (08:18→19:48)
[2019-05-19] MEDS: Multivitamins with Iron/Calcium/Folic Acid/Minerals Tab PO SCH (08:18)
[2019-05-20] MEDS: Acetaminophen 500 MG Tab PO SCH ×3 (08:48→19:49)
[2019-05-20] MEDS: Cholecalciferol (Vitamin D3) 25 MCG Tab PO SCH (08:49)
[2019-05-20] MEDS: Ascorbic Acid 500 MG Tab PO SCH (08:50)
[2019-05-20] MEDS: Cyanocobalamin (Vitamin B12) 250 MCG Tab PO SCH ×2 (08:50→19:50)
[2019-05-20] MEDS: Multivitamins with Iron/Calcium/Folic Acid/Minerals Tab PO SCH (08:50)
[2019-05-20] MEDS: FLUTICASONE PROPIONATE NASBOTH SCH ×2 (08:51→19:52)
[2019-05-21] MEDS: FLUTICASONE PROPIONATE NASBOTH SCH ×2 (10:00→19:34)
[2019-05-21] MEDS: Acetaminophen 500 MG Tab PO SCH ×3 (10:01→19:35)
[2019-05-21] MEDS: Multivitamins with Iron/Calcium/Folic Acid/Minerals Tab PO SCH (10:02)
[2019-05-21] MEDS: Cyanocobalamin (Vitamin B12) 250 MCG Tab PO SCH ×2 (10:02→19:34)
[2019-05-21] MEDS: Cholecalciferol (Vitamin D3) 25 MCG Tab PO SCH (10:02)
[2019-05-21] MEDS: Ascorbic Acid 500 MG Tab PO SCH (10:02)
[2019-05-22] MEDS: FLUTICASONE PROPIONATE NASBOTH SCH ×2 (08:15→20:15)
[2019-05-22] MEDS: Cyanocobalamin (Vitamin B12) 250 MCG Tab PO SCH ×2 (08:18→20:17)
[2019-05-22] MEDS: Multivitamins with Iron/Calcium/Folic Acid/Minerals Tab PO SCH (08:19)
[2019-05-22] MEDS: Acetaminophen 500 MG Tab PO SCH ×3 (08:19→20:16)
[2019-05-22] MEDS: Ascorbic Acid 500 MG Tab PO SCH (08:19)
[2019-05-22] MEDS: Cholecalciferol (Vitamin D3) 25 MCG Tab PO SCH (08:20)
[2019-05-23] MEDS: FLUTICASONE PROPIONATE NASBOTH SCH ×2 (08:05→20:07)
[2019-05-23] MEDS: Cholecalciferol (Vitamin D3) 25 MCG Tab PO SCH (08:07)
[2019-05-23] MEDS: Acetaminophen 500 MG Tab PO SCH ×3 (08:08→20:08)
[2019-05-23] MEDS: Multivitamins with Iron/Calcium/Folic Acid/Minerals Tab PO SCH (08:09)
[2019-05-23] MEDS: Cyanocobalamin (Vitamin B12) 250 MCG Tab PO SCH ×2 (08:09→20:09)
[2019-05-23] MEDS: Ascorbic Acid 500 MG Tab PO SCH (08:09)
[2019-05-24] MEDS: Multivitamins with Iron/Calcium/Folic Acid/Minerals Tab PO SCH (08:32)
[2019-05-24] MEDS: Cholecalciferol (Vitamin D3) 25 MCG Tab PO SCH (08:32)
[2019-05-24] MEDS: Cyanocobalamin (Vitamin B12) 250 MCG Tab PO SCH ×2 (08:32→19:40)
[2019-05-24] MEDS: FLUTICASONE PROPIONATE NASBOTH SCH ×2 (08:33→19:36)
[2019-05-24] MEDS: Ascorbic Acid 500 MG Tab PO SCH (08:33)
[2019-05-24] MEDS: Acetaminophen 500 MG Tab PO SCH ×3 (08:33→19:38)
[2019-05-25] MEDS: Acetaminophen 500 MG Tab PO SCH ×3 (08:13→19:33)
[2019-05-25] MEDS: Cyanocobalamin (Vitamin B12) 250 MCG Tab PO SCH ×2 (08:13→19:32)
[2019-05-25] MEDS: Ascorbic Acid 500 MG Tab PO SCH (08:14)
[2019-05-25] MEDS: FLUTICASONE PROPIONATE NASBOTH SCH ×2 (08:14→19:32)
[2019-05-25] MEDS: Cholecalciferol (Vitamin D3) 25 MCG Tab PO SCH (08:14)
[2019-05-25] MEDS: Multivitamins with Iron/Calcium/Folic Acid/Minerals Tab PO SCH (08:14)
[2019-05-26] MEDS: Cholecalciferol (Vitamin D3) 25 MCG Tab PO SCH (07:51)
[2019-05-26] MEDS: Cyanocobalamin (Vitamin B12) 250 MCG Tab PO SCH ×2 (07:51→19:34)
[2019-05-26] MEDS: Acetaminophen 500 MG Tab PO SCH ×3 (07:51→19:34)
[2019-05-26] MEDS: Multivitamins with Iron/Calcium/Folic Acid/Minerals Tab PO SCH (07:51)
[2019-05-26] MEDS: Ascorbic Acid 500 MG Tab PO SCH (07:51)
[2019-05-26] MEDS: FLUTICASONE PROPIONATE NASBOTH SCH ×2 (07:53→19:34)
[2019-05-27] MEDS: Multivitamins with Iron/Calcium/Folic Acid/Minerals Tab PO SCH (07:30)
[2019-05-27] MEDS: FLUTICASONE PROPIONATE NASBOTH SCH ×2 (07:30→20:18)
[2019-05-27] MEDS: Cholecalciferol (Vitamin D3) 25 MCG Tab PO SCH (07:30)
[2019-05-27] MEDS: Ascorbic Acid 500 MG Tab PO SCH (07:31)
[2019-05-27] MEDS: Cyanocobalamin (Vitamin B12) 250 MCG Tab PO SCH ×2 (07:31→20:12)
[2019-05-27] MEDS: Acetaminophen 500 MG Tab PO SCH ×3 (07:31→20:12)
--- NOTE | 2019-05-27 18:10 | PCM.SN ---
- Free Text/Narrative Note: S: Nursing with concerns for a change in the patient's decubitus ulcer. [place] it was larger and more black in the center with a foul odor. The patient does not have sensation in this region so has not had any pain related to this. No fever. No redness around it according to nursing. He has sometimes declined to be turned overnight because of discomfort with sleeping then. He did get a different bed (a dolphin bed) in hopes this will help offload some pressure. He is having minimal pain from the clavicle at this point. He has an indwelling urinary catheter in place due to concerns for the decubitus ulcer being contaminated with urine given his incontinence. O: Vitals reviewed. Decubitus ulcer on the sacrum with central dark discoloration that is firm to touch and with surrounding yellow granulation tissue. There is no surrounding erythema or edema. A/P: #1 Decubitus Ulcer - No changes for now given he just got the new bed. - Discussed importance of allowing the position changes as recommended by nursing. - Continue with current dressing. - I will look at this again later this week. If worsening still, may need to consider surgical consult for possible debridement. #2 Urinary Incontinence - Discussed revisiting with urology regarding a suprapubic catheter. - He is agreeable. Referral to be entered in [facility]. #3 Clavicle Fracture - 2 week follow-up x-rays to be done tomorrow. Order entered. Ember Mcqueen MD
[2019-05-28] MEDS: Acetaminophen 500 MG Tab PO SCH ×4 (05:35→20:41)
[2019-05-28] MEDS: FLUTICASONE PROPIONATE NASBOTH SCH ×2 (08:28→20:40)
[2019-05-28] MEDS: Multivitamins with Iron/Calcium/Folic Acid/Minerals Tab PO SCH (08:30)
[2019-05-28] MEDS: Cholecalciferol (Vitamin D3) 25 MCG Tab PO SCH (08:31)
[2019-05-28] MEDS: Cyanocobalamin (Vitamin B12) 250 MCG Tab PO SCH ×2 (08:31→20:41)
[2019-05-28] MEDS: Ascorbic Acid 500 MG Tab PO SCH (08:31)
--- NOTE | 2019-05-28 08:48 | CR ---
[id number] RAD/RAD Clavicle Left EXAM: RAD Clavicle Left CLINICAL DATA: FOLLOW-UP DISTAL LEFT CLAVICULAR FRACTURE COMPARISON: CORRELATION IS MADE WITH THE EXAM OF MAY 14, 2019 FINDINGS: There is no change in position of the fracture fragments Callus formation is not yet seen There is diastases of fracture fragments. IMPRESSION: NO BONY HEALING YET SEEN SEPARATION OF FRACTURE FRAGMENTS Dima Walker MD 05/28/19 0831 Thank you for allowing us to participate in the care of your patient.
--- NOTE | 2019-05-28 10:05 | PCM.SN ---
- Free Text/Narrative Note: X-rays from today reviewed. No change. Patient has no pain with ROM he has already been doing. Therefore, can start to liberalize this and he can do activity as tolerated. Will repeat x-rays again next week.
[2019-05-29] MEDS: Cholecalciferol (Vitamin D3) 25 MCG Tab PO SCH (08:42)
[2019-05-29] MEDS: Acetaminophen 500 MG Tab PO SCH ×3 (08:42→19:30)
[2019-05-29] MEDS: Multivitamins with Iron/Calcium/Folic Acid/Minerals Tab PO SCH (08:42)
[2019-05-29] MEDS: Ascorbic Acid 500 MG Tab PO SCH (08:42)
[2019-05-29] MEDS: Cyanocobalamin (Vitamin B12) 250 MCG Tab PO SCH ×2 (08:42→19:30)
[2019-05-29] MEDS: Honey 44 ML Gel TP SCH (08:43)
[2019-05-29] MEDS: FLUTICASONE PROPIONATE NASBOTH SCH ×2 (08:43→19:29)
[2019-05-30] MEDS: Acetaminophen 500 MG Tab PO SCH ×3 (07:49→19:01)
[2019-05-30] MEDS: Cholecalciferol (Vitamin D3) 25 MCG Tab PO SCH (07:49)
[2019-05-30] MEDS: Ascorbic Acid 500 MG Tab PO SCH (07:49)
[2019-05-30] MEDS: Cyanocobalamin (Vitamin B12) 250 MCG Tab PO SCH ×2 (07:49→19:01)
[2019-05-30] MEDS: Multivitamins with Iron/Calcium/Folic Acid/Minerals Tab PO SCH (07:49)
[2019-05-30] MEDS: FLUTICASONE PROPIONATE NASBOTH SCH ×2 (07:51→19:01)
[2019-05-30] MEDS: Honey 44 ML Gel TP SCH (07:51)
[2019-05-31] MEDS: FLUTICASONE PROPIONATE NASBOTH SCH ×2 (09:25→19:51)
[2019-05-31] MEDS: Honey 44 ML Gel TP SCH (09:27)
[2019-05-31] MEDS: Acetaminophen 500 MG Tab PO SCH ×3 (09:28→19:48)
[2019-05-31] MEDS: Cholecalciferol (Vitamin D3) 25 MCG Tab PO SCH (09:30)
[2019-05-31] MEDS: Multivitamins with Iron/Calcium/Folic Acid/Minerals Tab PO SCH (09:30)
[2019-05-31] MEDS: Ascorbic Acid 500 MG Tab PO SCH (09:30)
[2019-05-31] MEDS: Cyanocobalamin (Vitamin B12) 250 MCG Tab PO SCH ×2 (09:32→19:48)
[2019-06-01] MEDS: Cyanocobalamin (Vitamin B12) 250 MCG Tab PO SCH ×2 (09:11→20:59)
[2019-06-01] MEDS: Multivitamins with Iron/Calcium/Folic Acid/Minerals Tab PO SCH (09:12)
[2019-06-01] MEDS: Acetaminophen 500 MG Tab PO SCH ×3 (09:12→20:59)
[2019-06-01] MEDS: Ascorbic Acid 500 MG Tab PO SCH (09:12)
[2019-06-01] MEDS: Cholecalciferol (Vitamin D3) 25 MCG Tab PO SCH (09:12)
[2019-06-01] MEDS: FLUTICASONE PROPIONATE NASBOTH SCH ×2 (09:14→21:00)
[2019-06-01] MEDS: Honey 44 ML Gel TP SCH (09:15)
[2019-06-02] MEDS: Multivitamins with Iron/Calcium/Folic Acid/Minerals Tab PO SCH (08:46)
[2019-06-02] MEDS: Acetaminophen 500 MG Tab PO SCH ×3 (08:46→19:49)
[2019-06-02] MEDS: FLUTICASONE PROPIONATE NASBOTH SCH ×2 (08:46→19:55)
[2019-06-02] MEDS: Honey 44 ML Gel TP SCH (08:46)
[2019-06-02] MEDS: Cholecalciferol (Vitamin D3) 25 MCG Tab PO SCH (08:48)
[2019-06-02] MEDS: Cyanocobalamin (Vitamin B12) 250 MCG Tab PO SCH ×2 (08:48→19:49)
[2019-06-02] MEDS: Ascorbic Acid 500 MG Tab PO SCH (08:48)
[2019-06-03] MEDS: Honey 44 ML Gel TP SCH (09:49)
[2019-06-03] MEDS: FLUTICASONE PROPIONATE NASBOTH SCH ×2 (09:49→20:02)
[2019-06-03] MEDS: Acetaminophen 500 MG Tab PO SCH ×3 (09:51→20:02)
[2019-06-03] MEDS: Cyanocobalamin (Vitamin B12) 250 MCG Tab PO SCH ×2 (09:53→20:02)
[2019-06-03] MEDS: Ascorbic Acid 500 MG Tab PO SCH (09:53)
[2019-06-03] MEDS: Multivitamins with Iron/Calcium/Folic Acid/Minerals Tab PO SCH (09:53)
[2019-06-03] MEDS: Cholecalciferol (Vitamin D3) 25 MCG Tab PO SCH (09:53)
[2019-06-04] MEDS: Honey 44 ML Gel TP SCH (09:01)
[2019-06-04] MEDS: Ascorbic Acid 500 MG Tab PO SCH (09:02)
[2019-06-04] MEDS: Cholecalciferol (Vitamin D3) 25 MCG Tab PO SCH (09:02)
[2019-06-04] MEDS: Acetaminophen 500 MG Tab PO SCH ×3 (09:02→19:22)
[2019-06-04] MEDS: FLUTICASONE PROPIONATE NASBOTH SCH ×2 (09:02→19:22)
[2019-06-04] MEDS: Multivitamins with Iron/Calcium/Folic Acid/Minerals Tab PO SCH (09:03)
[2019-06-04] MEDS: Cyanocobalamin (Vitamin B12) 250 MCG Tab PO SCH ×2 (09:03→19:22)
[2019-06-04] MEDS ORDERED: Nystatin Crm 30 GM Tube TOP SCH (10:15)
[2019-06-04] MEDS: Miconazole 2% Top Powder 45 GM Container TOP SCH ×2 (13:08→19:21)
[2019-06-05] MEDS: Miconazole 2% Top Powder 45 GM Container TOP SCH ×2 (09:53→19:26)
[2019-06-05] MEDS: Honey 44 ML Gel TP SCH (09:54)
[2019-06-05] MEDS: FLUTICASONE PROPIONATE NASBOTH SCH ×2 (09:55→19:26)
[2019-06-05] MEDS: Multivitamins with Iron/Calcium/Folic Acid/Minerals Tab PO SCH (09:56)
[2019-06-05] MEDS: Ascorbic Acid 500 MG Tab PO SCH (09:56)
[2019-06-05] MEDS: Cholecalciferol (Vitamin D3) 25 MCG Tab PO SCH (09:57)
[2019-06-05] MEDS: Cyanocobalamin (Vitamin B12) 250 MCG Tab PO SCH ×2 (09:57→19:26)
[2019-06-05] MEDS: Acetaminophen 500 MG Tab PO SCH ×3 (09:57→19:26)
[2019-06-06] MEDS: FLUTICASONE PROPIONATE NASBOTH SCH ×2 (09:14→20:01)
[2019-06-06] MEDS: Cyanocobalamin (Vitamin B12) 250 MCG Tab PO SCH ×2 (09:15→20:02)
[2019-06-06] MEDS: Acetaminophen 500 MG Tab PO SCH ×3 (09:15→20:02)
[2019-06-06] MEDS: Cholecalciferol (Vitamin D3) 25 MCG Tab PO SCH (09:15)
[2019-06-06] MEDS: Multivitamins with Iron/Calcium/Folic Acid/Minerals Tab PO SCH (09:15)
[2019-06-06] MEDS: Ascorbic Acid 500 MG Tab PO SCH (09:16)
[2019-06-06] MEDS: Honey 44 ML Gel TP SCH (09:16)
[2019-06-06] MEDS: Miconazole 2% Top Powder 45 GM Container TOP SCH ×2 (09:16→20:03)
[2019-06-07] MEDS: Miconazole 2% Top Powder 45 GM Container TOP SCH ×2 (08:43→20:45)
[2019-06-07] MEDS: FLUTICASONE PROPIONATE NASBOTH SCH ×2 (08:44→20:32)
[2019-06-07] MEDS: Honey 44 ML Gel TP SCH (08:44)
[2019-06-07] MEDS: Multivitamins with Iron/Calcium/Folic Acid/Minerals Tab PO SCH (08:45)
[2019-06-07] MEDS: Acetaminophen 500 MG Tab PO SCH ×3 (08:45→20:33)
[2019-06-07] MEDS: Cyanocobalamin (Vitamin B12) 250 MCG Tab PO SCH ×2 (08:46→20:33)
[2019-06-07] MEDS: Ascorbic Acid 500 MG Tab PO SCH (08:47)
[2019-06-07] MEDS: Cholecalciferol (Vitamin D3) 25 MCG Tab PO SCH (08:47)
[2019-06-08] MEDS: Acetaminophen 500 MG Tab PO SCH ×3 (09:59→20:25)
[2019-06-08] MEDS: Cyanocobalamin (Vitamin B12) 250 MCG Tab PO SCH ×2 (10:00→20:25)
[2019-06-08] MEDS: Honey 44 ML Gel TP SCH (10:00)
[2019-06-08] MEDS: Cholecalciferol (Vitamin D3) 25 MCG Tab PO SCH (10:00)
[2019-06-08] MEDS: Miconazole 2% Top Powder 45 GM Container TOP SCH ×2 (10:00→20:24)
[2019-06-08] MEDS: Multivitamins with Iron/Calcium/Folic Acid/Minerals Tab PO SCH (10:00)
[2019-06-08] MEDS: FLUTICASONE PROPIONATE NASBOTH SCH ×2 (10:01→20:27)
[2019-06-08] MEDS: Ascorbic Acid 500 MG Tab PO SCH (10:01)
[2019-06-09] MEDS: Acetaminophen 500 MG Tab PO SCH ×2 (09:02→12:46)
[2019-06-09] MEDS: Ascorbic Acid 500 MG Tab PO SCH (09:03)
[2019-06-09] MEDS: Multivitamins with Iron/Calcium/Folic Acid/Minerals Tab PO SCH (09:03)
[2019-06-09] MEDS: Cholecalciferol (Vitamin D3) 25 MCG Tab PO SCH (09:03)
[2019-06-09] MEDS: Cyanocobalamin (Vitamin B12) 250 MCG Tab PO SCH (09:05)
[2019-06-09] MEDS: FLUTICASONE PROPIONATE NASBOTH SCH (09:06)
[2019-06-09] MEDS: Honey 44 ML Gel TP SCH (09:06)
[2019-06-09] MEDS: Miconazole 2% Top Powder 45 GM Container TOP SCH (09:07)
[2019-06-10] MEDS: Miconazole 2% Top Powder 45 GM Container TOP SCH ×3 (00:18→21:00)
[2019-06-10] MEDS: FLUTICASONE PROPIONATE NASBOTH SCH ×3 (00:19→21:00)
[2019-06-10] MEDS: Cyanocobalamin (Vitamin B12) 250 MCG Tab PO SCH ×3 (00:20→21:00)
[2019-06-10] MEDS: Acetaminophen 500 MG Tab PO SCH ×4 (00:21→21:00)
[2019-06-10] MEDS: Cholecalciferol (Vitamin D3) 25 MCG Tab PO SCH (08:58)
[2019-06-10] MEDS: Ascorbic Acid 500 MG Tab PO SCH (08:59)
[2019-06-10] MEDS: Multivitamins with Iron/Calcium/Folic Acid/Minerals Tab PO SCH (08:59)
--- NOTE | 2019-06-11 08:13 | PCM.PN ---
- General Info Date of Service: 06/11/19 Subjective Update: 44 yo male on swing bed for strengthening following a clavicle fracture sustained from a fall at home. He has not been wearing his sling at all for at least 1 week and is not having any pain with movement of the arm/shoulder. He denies any pain with pressure or positioning. He has some pain along the posterior aspect of the upper arm, which he states is usual for him and is generally controlled with tylenol. He otherwise denies concerns. His urinary catheter is working well and his urology appointment is scheduled for next week. He did have debridement of his pressure wound when he was at the wound clinic and is following up with them next week as well. He denies any fever, chills, or pain. - Review of Systems General: Reports: No Symptoms HEENT: Reports: No Symptoms Pulmonary: Reports: No Symptoms Cardiovascular: Reports: No Symptoms Gastrointestinal: Reports: No Symptoms Genitourinary: Reports: No Symptoms Musculoskeletal: Reports: No Symptoms Skin: Reports: No Symptoms Neurological: Reports: No Symptoms - Patient Data Vitals - Most Recent: Last Vital Signs Temp 36.3 C 06/11/19 05:49 Pulse 89 06/11/19 05:49 Resp 18 06/11/19 05:49 BP 116/62 06/11/19 05:49 Pulse Ox 97 06/10/19 05:27 Weight - Most Recent: 152.316 kg I&O - Last 24 Hours: Intake & Output 06/10/19 06/11/19 06/11/19 22:59 06:59 14:59 Intake Total 200 Output Total 450 1100 Balance -450 -900 Med Orders - Current: Current Medications Acetaminophen (Tylenol Extra Strength) 1,000 mg PO TID [facility] Last Admin: 06/10/19 21:00 Dose: 1,000 mg Ascorbic Acid (Vitamin C) 500 mg PO DAILY [facility] Last Admin: 06/10/19 08:59 Dose: 500 mg Cholecalciferol (Vitamin D3) 100 mcg PO DAILY [facility] Last Admin: 06/10/19 08:58 Dose: 100 mcg Cyanocobalamin (Vitamin B12) 500 mcg PO BID [facility] Last Admin: 06/10/19 21:00 Dose: 500 mcg Fluticasone Propionate (Flonase) 0 gm NASBOTH BID [facility] Last Admin: 06/10/19 21:00 Dose: 1 spray Lisinopril (Prinivil) 10 mg PO DAILY [facility] Last Admin: 06/10/19 08:58 Dose: 10 mg Miconazole (Desenex 2%) 0 gm TOP BID [facility] Last Admin: 06/10/19 21:00 Dose: 1 applic Multivitamins/Minerals (Thera M Plus) 1 tab PO DAILY [facility] Last Admin: 06/10/19 08:59 Dose: 1 tab Naproxen (Naproxen Sodium) 220 mg PO BIDMEALS [facility] Last Admin: 06/10/19 17:28 Dose: 220 mg Senna/Docusate Sodium (Senna Plus) 2 tab PO BEDTIME PRN PRN Reason: Constipation Last Admin: 06/02/19 08:47 Dose: 2 tab Discontinued Medications Fentanyl (Sublimaze) 100 mcg IVPUSH ONETIME ONE Stop: 05/14/19 12:22 Last Admin: 05/14/19 12:32 Dose: 100 mcg Miscellaneous Medication (Medihoney) 1 ml TP DAILY [facility] Last Admin: 06/09/19 09:06 Dose: Not Given Nystatin (Nystatin Crm) 1 gm TOP BID [facility] Last Admin: 06/04/19 11:51 Dose: Not Given Oxycodone HCl (Oxycodone) 5 mg PO Q6H PRN PRN Reason: Breakthrough Pain Last Admin: 05/19/19 03:07 Dose: 5 mg Senna/Docusate Sodium (Senna Plus) 2 tab PO BEDTIME PRN PRN Reason: Constipation Last Admin: 05/18/19 08:25 Dose: 2 tab Senna/Docusate Sodium (Senna Plus) 2 tab PO BEDTIME [facility] Last Admin: 05/22/19 20:18 Dose: Not Given Senna/Docusate Sodium (Senna Plus) 1 tab PO DAILY [facility] Last Admin: 05/23/19 08:07 Dose: Not Given - Exam General: Alert, Oriented, Cooperative, No Acute Distress HEENT: Pupils Equal, Pupils Reactive, Mucous Membr. Moist/[place] Neck: Supple, Trachea Midline, No Thyromegaly. No: Lymphadenopathy Lungs: Clear to Auscultation, Normal Respiratory Effort Cardiovascular: Regular Rate, Regular Rhythm, No Murmurs GI/Abdominal Exam: Normal Bowel Sounds, Soft, Non-Tender, No Organomegaly, No Distention, No Mass Extremities: Normal Range of Motion (of the shoulder without pain), Non-Tender ( no tenderness over the left clavile), No Pedal Edema, Normal Capillary Refill Peripheral Pulses: 2+: Radial (L), Radial (R) Skin: Warm, Dry Sepsis Event Note - Evaluation Sepsis Screening Result: No Definite Risk - Focused Exam Vital Signs: Vital Signs Temp Pulse Resp BP 06/11/19 05:49 36.3 C 89 18 116/62 Date Exam was Performed: 06/11/19 Time Exam was Performed: 08:06 - Problem List & Annotations (1) Fracture of clavicle SNOMED Code(s): 29044618 Code(s): S42.009A - FRACTURE OF UNSP PART OF UNSP CLAVICLE, INIT FOR CLOS FX Status: Acute Current Visit: Yes Qualifiers: Encounter type: initial encounter Clavicle location: lateral end Fracture type: closed Fracture alignment: displaced Laterality: left Qualified Code(s): S42.032A - Displaced fracture of lateral end of left clavicle , initial encounter for closed fracture (2) Hypertension SNOMED Code(s): 37483050 Code(s): I10 - ESSENTIAL (PRIMARY) HYPERTENSION Status: Chronic Current Visit: Yes Qualifiers: Hypertension type: essential hypertension Qualified Code(s): I10 - Essential (primary) hypertension (3) Multiple sclerosis SNOMED Code(s): 72162290 Code(s): G35 - MULTIPLE SCLEROSIS Status: Chronic Current Visit: Yes (4) Constipation SNOMED Code(s): 16853089 Code(s): K59.00 - CONSTIPATION, UNSPECIFIED Status: Chronic Current Visit : No Qualifiers: Constipation type: unspecified constipation type Qualified Code(s): K59.00 - Constipation, unspecified (5) Obesity SNOMED Code(s): 074572543, 198062434 Code(s): E66.9 - OBESITY, UNSPECIFIED Status: Chronic Current Visit: Yes Qualifiers: Obesity type: due to excess calories Obesity classification: adult class 3 (BMI >= 40) (6) Chronic sinusitis SNOMED Code(s): 48818992 Code(s): J32.9 - CHRONIC SINUSITIS, UNSPECIFIED Status: Chronic Current Visit: Yes Qualifiers: Sinusitis location: unspecified location Qualified Code(s): J32.9 - Chronic sinusitis, unspecified - Problem List Review Problem List Initiated/Reviewed/Updated: Yes - My Orders Last 24 Hours: My Active Orders 06/11/19 08:06 Clavicle Lt [CR] Routine - Assessment Assessment:: 44 yo male admitted for strengthening after a clavicle fracture he sustained from a fall at home. He is healing very well from this. - Plan Plan:: #1 Clavicle Fracture - PT and OT working with the patient. - He is clinically healed based on no pain with movement or with palpation. - Will update x-rays today. As long as this is ok as well, would consider this healed and he can continue with activity as tolerated. - Continue tylenol. #2 Hypertension #3 MS #4 Constipation #5 Obesity #6 Chronic sinusitis - Continue home medications. Patient will remain on swing bed at this time - as his fracture is healed, we can begin the process of determining plan for assistance after he returns home. Will talk with case management today. Continue home medications. No VTE prophylaxis is indicated as patient is at his usual functional status. Code status is DNR/DNI - discussed with patient on admission.
[2019-06-11] MEDS: Acetaminophen 500 MG Tab PO SCH ×3 (09:21→20:50)
[2019-06-11] MEDS: Cyanocobalamin (Vitamin B12) 250 MCG Tab PO SCH ×2 (09:21→20:49)
[2019-06-11] MEDS: Cholecalciferol (Vitamin D3) 25 MCG Tab PO SCH (09:22)
[2019-06-11] MEDS: Multivitamins with Iron/Calcium/Folic Acid/Minerals Tab PO SCH (09:22)
[2019-06-11] MEDS: Miconazole 2% Top Powder 45 GM Container TOP SCH ×2 (09:23→20:49)
[2019-06-11] MEDS: FLUTICASONE PROPIONATE NASBOTH SCH ×2 (09:25→20:49)
[2019-06-11] MEDS: Ascorbic Acid 500 MG Tab PO SCH (09:26)
--- NOTE | 2019-06-11 11:02 | CR ---
[id number] RAD/RAD Clavicle Left Exam: RAD Clavicle Left Indication:FOLLOW-UP CLAVICLE FRACTURE. Comparison: May 28, 2019. Discussion: No significant change in radiographic appearance of distal left clavicle fracture compared to the prior examination. No radiographic evidence of mineralized callus formation or osseous bridging at the fracture site. Impression: As above. Jose Silva MD 06/11/19 1102 Thank you for allowing us to participate in the care of your patient.
[2019-06-12] MEDS: Acetaminophen 500 MG Tab PO SCH ×3 (09:19→20:47)
[2019-06-12] MEDS: Multivitamins with Iron/Calcium/Folic Acid/Minerals Tab PO SCH (09:20)
[2019-06-12] MEDS: Cholecalciferol (Vitamin D3) 25 MCG Tab PO SCH (09:21)
[2019-06-12] MEDS: Cyanocobalamin (Vitamin B12) 250 MCG Tab PO SCH ×2 (09:25→20:48)
[2019-06-12] MEDS: FLUTICASONE PROPIONATE NASBOTH SCH ×2 (09:31→20:47)
[2019-06-12] MEDS: Miconazole 2% Top Powder 45 GM Container TOP SCH ×2 (09:36→20:48)
[2019-06-12] MEDS: Ascorbic Acid 500 MG Tab PO SCH (09:37)
[2019-06-13] MEDS: Acetaminophen 500 MG Tab PO SCH ×3 (09:16→21:54)
[2019-06-13] MEDS: Multivitamins with Iron/Calcium/Folic Acid/Minerals Tab PO SCH (09:17)
[2019-06-13] MEDS: Ascorbic Acid 500 MG Tab PO SCH (09:17)
[2019-06-13] MEDS: Cyanocobalamin (Vitamin B12) 250 MCG Tab PO SCH ×2 (09:17→21:54)
[2019-06-13] MEDS: Cholecalciferol (Vitamin D3) 25 MCG Tab PO SCH (09:17)
[2019-06-13] MEDS: Miconazole 2% Top Powder 45 GM Container TOP SCH ×2 (09:18→21:56)
[2019-06-13] MEDS: FLUTICASONE PROPIONATE NASBOTH SCH ×2 (09:19→21:56)
[2019-06-14] MEDS: Cholecalciferol (Vitamin D3) 25 MCG Tab PO SCH (08:25)
[2019-06-14] MEDS: Cyanocobalamin (Vitamin B12) 250 MCG Tab PO SCH ×2 (08:26→20:28)
[2019-06-14] MEDS: Multivitamins with Iron/Calcium/Folic Acid/Minerals Tab PO SCH (08:26)
[2019-06-14] MEDS: Acetaminophen 500 MG Tab PO SCH ×3 (08:26→20:28)
[2019-06-14] MEDS: Ascorbic Acid 500 MG Tab PO SCH (08:26)
[2019-06-14] MEDS: FLUTICASONE PROPIONATE NASBOTH SCH ×2 (08:27→20:28)
[2019-06-14] MEDS: Miconazole 2% Top Powder 45 GM Container TOP SCH ×2 (08:27→20:29)
[2019-06-15] MEDS: Cholecalciferol (Vitamin D3) 25 MCG Tab PO SCH (09:09)
[2019-06-15] MEDS: Ascorbic Acid 500 MG Tab PO SCH (09:09)
[2019-06-15] MEDS: Acetaminophen 500 MG Tab PO SCH ×3 (09:09→20:19)
[2019-06-15] MEDS: Cyanocobalamin (Vitamin B12) 250 MCG Tab PO SCH ×2 (09:09→20:19)
[2019-06-15] MEDS: Multivitamins with Iron/Calcium/Folic Acid/Minerals Tab PO SCH (09:09)
[2019-06-15] MEDS: FLUTICASONE PROPIONATE NASBOTH SCH ×2 (09:10→20:18)
[2019-06-15] MEDS: Miconazole 2% Top Powder 45 GM Container TOP SCH ×2 (09:11→20:18)
[2019-06-16] MEDS: Miconazole 2% Top Powder 45 GM Container TOP SCH ×2 (09:11→21:43)
[2019-06-16] MEDS: Cyanocobalamin (Vitamin B12) 250 MCG Tab PO SCH ×2 (09:12→21:42)
[2019-06-16] MEDS: Cholecalciferol (Vitamin D3) 25 MCG Tab PO SCH (09:12)
[2019-06-16] MEDS: Ascorbic Acid 500 MG Tab PO SCH (09:13)
[2019-06-16] MEDS: Multivitamins with Iron/Calcium/Folic Acid/Minerals Tab PO SCH (09:13)
[2019-06-16] MEDS: Acetaminophen 500 MG Tab PO SCH ×3 (09:13→21:42)
[2019-06-16] MEDS: FLUTICASONE PROPIONATE NASBOTH SCH ×2 (09:14→21:43)
[2019-06-17] MEDS: Miconazole 2% Top Powder 45 GM Container TOP SCH ×2 (08:37→23:38)
[2019-06-17] MEDS: FLUTICASONE PROPIONATE NASBOTH SCH ×2 (08:38→23:39)
[2019-06-17] MEDS: Multivitamins with Iron/Calcium/Folic Acid/Minerals Tab PO SCH (08:40)
[2019-06-17] MEDS: Acetaminophen 500 MG Tab PO SCH ×3 (08:40→21:31)
[2019-06-17] MEDS: Cyanocobalamin (Vitamin B12) 250 MCG Tab PO SCH ×2 (08:41→21:31)
[2019-06-17] MEDS: Ascorbic Acid 500 MG Tab PO SCH (08:41)
[2019-06-17] MEDS: Cholecalciferol (Vitamin D3) 25 MCG Tab PO SCH (08:42)
--- NOTE | 2019-06-18 07:55 | PCM.SN ---
- Free Text/Narrative Note: Late entry. Patient seen 06/17/2019 at request of nursing due to worsening of his pressure wound. On exam, this is significantly deeper and wider than previous. He has some good granulation tissue but also has central necrotic tissue as well. There was a ride issue and he was unable to get to his wound clinic appointment on 06/16. He needs to follow-up with them this week for further debridement. Otherwise, no change to the wound cares. Need for frequent repositioning reinforced as this is a pressure wound and should not be worsening if appropriate repositioning measures are taking place. No signs of infection at this point; therefore, no role for antibiotics.
[2019-06-18] MEDS: Acetaminophen 500 MG Tab PO SCH ×3 (09:10→20:59)
[2019-06-18] MEDS: Cyanocobalamin (Vitamin B12) 250 MCG Tab PO SCH ×2 (09:10→21:00)
[2019-06-18] MEDS: Multivitamins with Iron/Calcium/Folic Acid/Minerals Tab PO SCH (09:11)
[2019-06-18] MEDS: Ascorbic Acid 500 MG Tab PO SCH (09:11)
[2019-06-18] MEDS: FLUTICASONE PROPIONATE NASBOTH SCH (09:11)
[2019-06-18] MEDS: Cholecalciferol (Vitamin D3) 25 MCG Tab PO SCH (09:11)
[2019-06-18] MEDS: Miconazole 2% Top Powder 45 GM Container TOP SCH (09:20)
[2019-06-19] MEDS: Miconazole 2% Top Powder 45 GM Container TOP SCH ×3 (01:41→19:55)
[2019-06-19] MEDS: FLUTICASONE PROPIONATE NASBOTH SCH ×3 (01:42→19:54)
[2019-06-19] MEDS: Multivitamins with Iron/Calcium/Folic Acid/Minerals Tab PO SCH (08:13)
[2019-06-19] MEDS: Acetaminophen 500 MG Tab PO SCH ×3 (08:13→19:54)
[2019-06-19] MEDS: Cyanocobalamin (Vitamin B12) 250 MCG Tab PO SCH ×2 (08:14→19:54)
[2019-06-19] MEDS: Ascorbic Acid 500 MG Tab PO SCH (08:14)
[2019-06-19] MEDS: Cholecalciferol (Vitamin D3) 25 MCG Tab PO SCH (08:15)
[2019-06-20] MEDS: FLUTICASONE PROPIONATE NASBOTH SCH ×2 (09:11→20:29)
[2019-06-20] MEDS: Acetaminophen 500 MG Tab PO SCH ×3 (09:13→20:30)
[2019-06-20] MEDS: Cholecalciferol (Vitamin D3) 25 MCG Tab PO SCH (09:14)
[2019-06-20] MEDS: Cyanocobalamin (Vitamin B12) 250 MCG Tab PO SCH ×2 (09:14→20:30)
[2019-06-20] MEDS: Multivitamins with Iron/Calcium/Folic Acid/Minerals Tab PO SCH (09:15)
[2019-06-20] MEDS: Miconazole 2% Top Powder 45 GM Container TOP SCH ×2 (09:15→20:31)
[2019-06-20] MEDS: Ascorbic Acid 500 MG Tab PO SCH (09:15)
[2019-06-21] MEDS: Acetaminophen 500 MG Tab PO SCH ×3 (07:45→20:34)
[2019-06-21] MEDS: Cyanocobalamin (Vitamin B12) 250 MCG Tab PO SCH ×2 (07:46→20:34)
[2019-06-21] MEDS: Cholecalciferol (Vitamin D3) 25 MCG Tab PO SCH (07:46)
[2019-06-21] MEDS: Multivitamins with Iron/Calcium/Folic Acid/Minerals Tab PO SCH (07:47)
[2019-06-21] MEDS: Ascorbic Acid 500 MG Tab PO SCH (07:47)
[2019-06-21] MEDS: Miconazole 2% Top Powder 45 GM Container TOP SCH ×2 (07:53→20:36)
[2019-06-21] MEDS: FLUTICASONE PROPIONATE NASBOTH SCH ×2 (11:14→20:35)
[2019-06-22] MEDS: Cholecalciferol (Vitamin D3) 25 MCG Tab PO SCH (09:18)
[2019-06-22] MEDS: Acetaminophen 500 MG Tab PO SCH ×3 (09:18→21:07)
[2019-06-22] MEDS: Cyanocobalamin (Vitamin B12) 250 MCG Tab PO SCH ×2 (09:19→21:00)
[2019-06-22] MEDS: Multivitamins with Iron/Calcium/Folic Acid/Minerals Tab PO SCH (09:19)
[2019-06-22] MEDS: Ascorbic Acid 500 MG Tab PO SCH (09:19)
[2019-06-22] MEDS: FLUTICASONE PROPIONATE NASBOTH SCH ×2 (09:19→21:00)
[2019-06-22] MEDS: Miconazole 2% Top Powder 45 GM Container TOP SCH ×2 (09:20→21:00)
[2019-06-23] MEDS: Multivitamins with Iron/Calcium/Folic Acid/Minerals Tab PO SCH (08:42)
[2019-06-23] MEDS: Acetaminophen 500 MG Tab PO SCH ×3 (08:43→20:47)
[2019-06-23] MEDS: Ascorbic Acid 500 MG Tab PO SCH (08:43)
[2019-06-23] MEDS: Cyanocobalamin (Vitamin B12) 250 MCG Tab PO SCH ×2 (08:44→20:48)
[2019-06-23] MEDS: Cholecalciferol (Vitamin D3) 25 MCG Tab PO SCH (08:45)
[2019-06-23] MEDS: FLUTICASONE PROPIONATE NASBOTH SCH ×2 (08:47→20:47)
[2019-06-23] MEDS: Miconazole 2% Top Powder 45 GM Container TOP SCH ×2 (08:48→20:48)
[2019-06-24] MEDS: Multivitamins with Iron/Calcium/Folic Acid/Minerals Tab PO SCH (08:00)
[2019-06-24] MEDS: Acetaminophen 500 MG Tab PO SCH ×3 (08:01→20:10)
[2019-06-24] MEDS: Cyanocobalamin (Vitamin B12) 250 MCG Tab PO SCH ×2 (08:02→20:10)
[2019-06-24] MEDS: Ascorbic Acid 500 MG Tab PO SCH (08:03)
[2019-06-24] MEDS: Cholecalciferol (Vitamin D3) 25 MCG Tab PO SCH (08:03)
[2019-06-24] MEDS: FLUTICASONE PROPIONATE NASBOTH SCH ×2 (08:04→20:11)
[2019-06-24] MEDS: Miconazole 2% Top Powder 45 GM Container TOP SCH ×2 (08:06→20:11)
[2019-06-25] MEDS: Ascorbic Acid 500 MG Tab PO SCH (08:30)
[2019-06-25] MEDS: Cyanocobalamin (Vitamin B12) 250 MCG Tab PO SCH ×2 (08:30→20:02)
[2019-06-25] MEDS: Cholecalciferol (Vitamin D3) 25 MCG Tab PO SCH (08:30)
[2019-06-25] MEDS: Acetaminophen 500 MG Tab PO SCH ×3 (08:30→20:02)
[2019-06-25] MEDS: Miconazole 2% Top Powder 45 GM Container TOP SCH ×2 (08:30→20:03)
[2019-06-25] MEDS: FLUTICASONE PROPIONATE NASBOTH SCH ×2 (08:31→20:03)
[2019-06-25] MEDS: Multivitamins with Iron/Calcium/Folic Acid/Minerals Tab PO SCH (08:31)
[2019-06-26] MEDS: Miconazole 2% Top Powder 45 GM Container TOP SCH ×2 (07:58→20:20)
[2019-06-26] MEDS: FLUTICASONE PROPIONATE NASBOTH SCH ×2 (07:59→20:19)
[2019-06-26] MEDS: Acetaminophen 500 MG Tab PO SCH ×3 (08:00→20:19)
[2019-06-26] MEDS: Multivitamins with Iron/Calcium/Folic Acid/Minerals Tab PO SCH (08:00)
[2019-06-26] MEDS: Cholecalciferol (Vitamin D3) 25 MCG Tab PO SCH (08:01)
[2019-06-26] MEDS: Cyanocobalamin (Vitamin B12) 250 MCG Tab PO SCH ×2 (08:01→20:19)
[2019-06-26] MEDS: Ascorbic Acid 500 MG Tab PO SCH (08:01)
[2019-06-27] MEDS: Cyanocobalamin (Vitamin B12) 250 MCG Tab PO SCH ×2 (09:07→20:53)
[2019-06-27] MEDS: Cholecalciferol (Vitamin D3) 25 MCG Tab PO SCH (09:07)
[2019-06-27] MEDS: Miconazole 2% Top Powder 45 GM Container TOP SCH ×2 (09:07→20:54)
[2019-06-27] MEDS: Ascorbic Acid 500 MG Tab PO SCH (09:08)
[2019-06-27] MEDS: Multivitamins with Iron/Calcium/Folic Acid/Minerals Tab PO SCH (09:08)
[2019-06-27] MEDS: Acetaminophen 500 MG Tab PO SCH ×3 (09:08→20:53)
[2019-06-27] MEDS: FLUTICASONE PROPIONATE NASBOTH SCH ×2 (09:08→20:54)
[2019-06-28] MEDS: Cholecalciferol (Vitamin D3) 25 MCG Tab PO SCH (08:36)
[2019-06-28] MEDS: Multivitamins with Iron/Calcium/Folic Acid/Minerals Tab PO SCH (08:37)
[2019-06-28] MEDS: Ascorbic Acid 500 MG Tab PO SCH (08:37)
[2019-06-28] MEDS: Acetaminophen 500 MG Tab PO SCH ×3 (08:37→20:10)
[2019-06-28] MEDS: FLUTICASONE PROPIONATE NASBOTH SCH ×2 (08:38→20:11)
[2019-06-28] MEDS: Cyanocobalamin (Vitamin B12) 250 MCG Tab PO SCH ×2 (08:46→20:10)
[2019-06-28] MEDS: Miconazole 2% Top Powder 45 GM Container TOP SCH ×2 (08:48→20:11)
[2019-06-29] MEDS: FLUTICASONE PROPIONATE NASBOTH SCH ×2 (08:56→20:00)
[2019-06-29] MEDS: Cholecalciferol (Vitamin D3) 25 MCG Tab PO SCH (08:57)
[2019-06-29] MEDS: Cyanocobalamin (Vitamin B12) 250 MCG Tab PO SCH ×2 (08:58→20:00)
[2019-06-29] MEDS: Acetaminophen 500 MG Tab PO SCH ×3 (08:58→20:00)
[2019-06-29] MEDS: Multivitamins with Iron/Calcium/Folic Acid/Minerals Tab PO SCH (08:58)
[2019-06-29] MEDS: Ascorbic Acid 500 MG Tab PO SCH (08:58)
[2019-06-29] MEDS: Miconazole 2% Top Powder 45 GM Container TOP SCH ×2 (09:03→20:01)
[2019-06-30] MEDS: Acetaminophen 500 MG Tab PO SCH ×3 (09:43→21:03)
[2019-06-30] MEDS: FLUTICASONE PROPIONATE NASBOTH SCH ×2 (09:43→21:04)
[2019-06-30] MEDS: Cyanocobalamin (Vitamin B12) 250 MCG Tab PO SCH ×2 (09:44→21:03)
[2019-06-30] MEDS: Ascorbic Acid 500 MG Tab PO SCH (09:44)
[2019-06-30] MEDS: Cholecalciferol (Vitamin D3) 25 MCG Tab PO SCH (09:44)
[2019-06-30] MEDS: Multivitamins with Iron/Calcium/Folic Acid/Minerals Tab PO SCH (09:44)
[2019-06-30] MEDS: Miconazole 2% Top Powder 45 GM Container TOP SCH ×2 (09:45→21:05)
[2019-07-01] MEDS: Multivitamins with Iron/Calcium/Folic Acid/Minerals Tab PO SCH (08:26)
[2019-07-01] MEDS: Cyanocobalamin (Vitamin B12) 250 MCG Tab PO SCH ×2 (08:26→19:16)
[2019-07-01] MEDS: Cholecalciferol (Vitamin D3) 25 MCG Tab PO SCH (08:27)
[2019-07-01] MEDS: Acetaminophen 500 MG Tab PO SCH ×3 (08:28→19:16)
[2019-07-01] MEDS: FLUTICASONE PROPIONATE NASBOTH SCH ×2 (08:33→19:17)
[2019-07-01] MEDS: Ascorbic Acid 500 MG Tab PO SCH (08:35)
[2019-07-01] MEDS: Miconazole 2% Top Powder 45 GM Container TOP SCH ×2 (08:36→19:16)
[2019-07-02] MEDS: Acetaminophen 500 MG Tab PO SCH ×3 (08:24→22:35)
[2019-07-02] MEDS: Cholecalciferol (Vitamin D3) 25 MCG Tab PO SCH (08:25)
[2019-07-02] MEDS: Ascorbic Acid 500 MG Tab PO SCH (08:25)
[2019-07-02] MEDS: Cyanocobalamin (Vitamin B12) 250 MCG Tab PO SCH ×2 (08:25→22:35)
[2019-07-02] MEDS: Multivitamins with Iron/Calcium/Folic Acid/Minerals Tab PO SCH (08:26)
[2019-07-02] MEDS: Miconazole 2% Top Powder 45 GM Container TOP SCH ×2 (08:27→22:35)
[2019-07-02] MEDS: FLUTICASONE PROPIONATE NASBOTH SCH ×2 (08:27→22:35)
[2019-07-03] MEDS: Acetaminophen 500 MG Tab PO SCH ×3 (08:18→20:39)
[2019-07-03] MEDS: Multivitamins with Iron/Calcium/Folic Acid/Minerals Tab PO SCH (08:19)
[2019-07-03] MEDS: Cyanocobalamin (Vitamin B12) 250 MCG Tab PO SCH ×2 (08:19→20:41)
[2019-07-03] MEDS: Cholecalciferol (Vitamin D3) 25 MCG Tab PO SCH (08:19)
[2019-07-03] MEDS: Ascorbic Acid 500 MG Tab PO SCH (08:20)
[2019-07-03] MEDS: Miconazole 2% Top Powder 45 GM Container TOP SCH ×2 (08:20→20:40)
[2019-07-03] MEDS: FLUTICASONE PROPIONATE NASBOTH SCH ×2 (08:22→20:40)
[2019-07-04] MEDS: Cyanocobalamin (Vitamin B12) 250 MCG Tab PO SCH ×2 (07:39→19:36)
[2019-07-04] MEDS: Ascorbic Acid 500 MG Tab PO SCH (07:39)
[2019-07-04] MEDS: Cholecalciferol (Vitamin D3) 25 MCG Tab PO SCH (07:40)
[2019-07-04] MEDS: Multivitamins with Iron/Calcium/Folic Acid/Minerals Tab PO SCH (07:40)
[2019-07-04] MEDS: Acetaminophen 500 MG Tab PO SCH ×3 (07:40→19:35)
[2019-07-04] MEDS: FLUTICASONE PROPIONATE NASBOTH SCH ×2 (07:40→19:35)
[2019-07-04] MEDS: Miconazole 2% Top Powder 45 GM Container TOP SCH ×2 (08:33→19:38)
[2019-07-04 14:48] LABS: CHLORIDE,CL 101 mmol/L (98-107); SODIUM,NA 138 mmol/L (136-145)
[2019-07-04 15:11] LABS: ANION GAP 14.6 mmol/L (10-20)
[2019-07-05] MEDS: FLUTICASONE PROPIONATE NASBOTH SCH ×2 (08:19→20:38)
[2019-07-05] MEDS: Acetaminophen 500 MG Tab PO SCH ×3 (08:21→20:39)
[2019-07-05] MEDS: Cyanocobalamin (Vitamin B12) 250 MCG Tab PO SCH ×2 (08:23→20:39)
[2019-07-05] MEDS: Cholecalciferol (Vitamin D3) 25 MCG Tab PO SCH (08:23)
[2019-07-05] MEDS: Multivitamins with Iron/Calcium/Folic Acid/Minerals Tab PO SCH (08:23)
[2019-07-05] MEDS: Ascorbic Acid 500 MG Tab PO SCH (08:23)
[2019-07-05] MEDS: Miconazole 2% Top Powder 45 GM Container TOP SCH ×2 (08:24→20:39)
[2019-07-06] MEDS: FLUTICASONE PROPIONATE NASBOTH SCH ×2 (11:30→20:31)
[2019-07-06] MEDS: Acetaminophen 500 MG Tab PO SCH ×3 (11:31→20:31)
[2019-07-06] MEDS: Cyanocobalamin (Vitamin B12) 250 MCG Tab PO SCH ×2 (11:32→20:31)
[2019-07-06] MEDS: Cholecalciferol (Vitamin D3) 25 MCG Tab PO SCH (11:32)
[2019-07-06] MEDS: Ascorbic Acid 500 MG Tab PO SCH (11:32)
[2019-07-06] MEDS: Multivitamins with Iron/Calcium/Folic Acid/Minerals Tab PO SCH (11:32)
[2019-07-06] MEDS: Miconazole 2% Top Powder 45 GM Container TOP SCH ×2 (17:47→20:31)
[2019-07-07] MEDS: Cyanocobalamin (Vitamin B12) 250 MCG Tab PO SCH ×2 (08:10→20:00)
[2019-07-07] MEDS: Acetaminophen 500 MG Tab PO SCH ×3 (08:10→20:00)
[2019-07-07] MEDS: Multivitamins with Iron/Calcium/Folic Acid/Minerals Tab PO SCH (08:10)
[2019-07-07] MEDS: Cholecalciferol (Vitamin D3) 25 MCG Tab PO SCH (08:10)
[2019-07-07] MEDS: Ascorbic Acid 500 MG Tab PO SCH (08:10)
[2019-07-07] MEDS: FLUTICASONE PROPIONATE NASBOTH SCH ×2 (08:11→20:00)
[2019-07-07] MEDS: Miconazole 2% Top Powder 45 GM Container TOP SCH ×2 (08:11→20:01)
[2019-07-08] MEDS: Miconazole 2% Top Powder 45 GM Container TOP SCH ×2 (07:29→19:38)
[2019-07-08] MEDS: Multivitamins with Iron/Calcium/Folic Acid/Minerals Tab PO SCH (07:30)
[2019-07-08] MEDS: Acetaminophen 500 MG Tab PO SCH ×3 (07:30→19:38)
[2019-07-08] MEDS: Cyanocobalamin (Vitamin B12) 250 MCG Tab PO SCH ×2 (07:30→19:39)
[2019-07-08] MEDS: FLUTICASONE PROPIONATE NASBOTH SCH ×2 (07:31→19:37)
[2019-07-08] MEDS: Ascorbic Acid 500 MG Tab PO SCH (07:31)
[2019-07-08] MEDS: Cholecalciferol (Vitamin D3) 25 MCG Tab PO SCH (07:31)
[2019-07-09] MEDS: Acetaminophen 500 MG Tab PO SCH ×2 (03:44→08:54)
--- NOTE | 2019-07-09 08:23 | PCM.PN ---
- General Info Date of Service: 07/08/19 Subjective Update: 44 yo male seen on 07/07 for routine swing bed rounds upon his return from [place] where he underwent debridement of his sacral wound in the OR. He states that he is doing well. Due to his lack of sensation in the area of the wound, he continues to have no pain related to this. As far as he knows, the debridement went well. He states that at the end of this week, he will be going back to the OR to have a temporary colostomy as well as a suprapubic catheter placed. He denies any fever. His appetite has been decreased and he has lost some weight in regard to this. He states that he will develop epigastric pain after he starts eating and, therefore, he is not eating as much as usual. He had previously been advised to undergo EGD and colonoscopy for further evaluation of this but had declined due to the difficulty he would have with a colonoscopy prep. He denies any changes in his bowel movements or blood in the stools. He has not had any nausea or vomiting. - Review of Systems General: Reports: No Symptoms HEENT: Reports: No Symptoms Pulmonary: Reports: No Symptoms Cardiovascular: Reports: No Symptoms Gastrointestinal: Reports: Abdominal Pain Genitourinary: Reports: No Symptoms Musculoskeletal: Reports: No Symptoms Skin: Reports: No Symptoms Neurological: Reports: No Symptoms - Patient Data Vitals - Most Recent: Last Vital Signs Temp 38.1 C 07/09/19 06:04 Pulse 93 07/09/19 06:04 Resp 17 07/09/19 06:04 BP 111/67 07/09/19 06:04 Pulse Ox 97 07/09/19 06:04 Weight - Most Recent: 152.31 kg I&O - Last 24 Hours: Intake & Output 07/08/19 07/09/19 07/09/19 22:59 06:59 14:59 Intake Total 800 Output Total 150 1300 Balance -150 -500 Med Orders - Current: Current Medications Acetaminophen (Tylenol Extra Strength) 1,000 mg PO TID [facility] Last Admin: 07/09/19 03:44 Dose: 1,000 mg Ascorbic Acid (Vitamin C) 500 mg PO DAILY [facility] Last Admin: 07/08/19 07:31 Dose: Not Given Cholecalciferol (Vitamin D3) 100 mcg PO DAILY [facility] Last Admin: 03/23/20 07:31 Dose: Not Given Cyanocobalamin (Vitamin B12) 500 mcg PO BID [facility] Last Admin: 07/08/19 19:39 Dose: 500 mcg Fluticasone Propionate (Flonase) 0 gm NASBOTH BID [facility] Last Admin: 07/08/19 19:37 Dose: 1 ea Lisinopril (Prinivil) 10 mg PO DAILY [facility] Last Admin: 07/08/19 07:30 Dose: Not Given Miconazole (Desenex 2%) 0 gm TOP BID [facility] Last Admin: 07/08/19 19:38 Dose: 1 applic Multivitamins/Minerals (Thera M Plus) 1 tab PO DAILY [facility] Last Admin: 07/08/19 07:30 Dose: Not Given [facility] Last Admin: 07/08/19 19:11 Dose: 220 mg Senna/Docusate Sodium (Senna Plus) 2 tab PO BEDTIME PRN PRN Reason: Constipation Last Admin: 06/22/19 14:02 Dose: 2 tab Discontinued Medications Fentanyl (Sublimaze) 100 mcg IVPUSH ONETIME ONE Stop: 05/14/19 12:22 Last Admin: 05/14/19 12:32 Dose: 100 mcg Miscellaneous Medication (Medihoney) 1 ml TP DAILY [facility] Last Admin: 06/09/19 09:06 Dose: Not Given Nystatin (Nystatin Crm) 1 gm TOP BID [facility] Last Admin: 06/04/19 11:51 Dose: Not Given Oxycodone HCl (Oxycodone) 5 mg PO Q6H PRN PRN Reason: Breakthrough Pain Last Admin: 05/19/19 03:07 Dose: 5 mg Senna/Docusate Sodium (Senna Plus) 2 tab PO BEDTIME PRN PRN Reason: Constipation Last Admin: 05/18/19 08:25 Dose: 2 tab Senna/Docusate Sodium (Senna Plus) 2 tab PO BEDTIME [facility] Last Admin: 05/22/19 20:18 Dose: Not Given Senna/Docusate Sodium (Senna Plus) 1 tab PO DAILY [facility] Last Admin: 05/23/19 08:07 Dose: Not Given - Exam General: Alert, Oriented, Cooperative, No Acute Distress HEENT: Mucous Membr. Moist/[place] Neck: Supple, Trachea Midline, No Thyromegaly. No: Lymphadenopathy Lungs: Clear to Auscultation, Normal Respiratory Effort Cardiovascular: Regular Rate, Regular Rhythm, No Murmurs GI/Abdominal Exam: Normal Bowel Sounds, Soft, Non-Tender, No Organomegaly, No Distention, No Mass Extremities: Normal Inspection, Non-Tender, No Pedal Edema, Normal Capillary Refill Peripheral Pulses: 2+: Radial (L), Radial (R) Skin: Warm Sepsis Event Note - Evaluation Sepsis Screening Result: No Definite Risk - Focused Exam Vital Signs: Vital Signs Temp Pulse Resp BP Pulse Ox 07/09/19 06:04 38.1 C 93 17 111/67 97 07/09/19 05:32 37.0 C 94 19 105/59 L 95 07/09/19 04:08 36.4 C 104 H 19 102/57 L 100 Date Exam was Performed: 07/09/19 Time Exam was Performed: 09:22 - Problem List & Annotations (1) Sacral decubitus ulcer SNOMED Code(s): 945004714 Code(s): L89.159 - PRESSURE ULCER OF SACRAL REGION, UNSPECIFIED STAGE Status: Acute Current Visit: Yes Qualifiers: Pressure injury stage: unspecified pressure injury stage Qualified Code(s) : L89.159 - Pressure ulcer of sacral region, unspecified stage (2) Fracture of clavicle SNOMED Code(s): 13426694 Code(s): S42.009A - FRACTURE OF UNSP PART OF UNSP CLAVICLE, INIT FOR CLOS FX Status: Resolved Current Visit: Yes Qualifiers: Encounter type: initial encounter Clavicle location: lateral end Fracture type: closed Fracture alignment: displaced Laterality: left Qualified Code(s): S42.032A - Displaced fracture of lateral end of left clavicle , initial encounter for closed fracture (3) Hypertension SNOMED Code(s): 82161037 Code(s): I10 - ESSENTIAL (PRIMARY) HYPERTENSION Status: Chronic Current Visit: Yes Qualifiers: Hypertension type: essential hypertension Qualified Code(s): I10 - Essential (primary) hypertension (4) Multiple sclerosis SNOMED Code(s): 34905091 Code(s): G35 - MULTIPLE SCLEROSIS Status: Chronic Current Visit: Yes (5) Constipation SNOMED Code(s): 41020535 Code(s): K59.00 - CONSTIPATION, UNSPECIFIED Status: Chronic Current Visit : No Qualifiers: Constipation type: unspecified constipation type Qualified Code(s): K59.00 - Constipation, unspecified (6) Obesity SNOMED Code(s): 883489396, 096868395 Code(s): E66.9 - OBESITY, UNSPECIFIED Status: Chronic Current Visit: Yes Qualifiers: Obesity type: due to excess calories Obesity classification: adult class 3 (BMI >= 40) (7) Chronic sinusitis SNOMED Code(s): 94710746 Code(s): J32.9 - CHRONIC SINUSITIS, UNSPECIFIED Status: Chronic Current Visit: Yes Qualifiers: Sinusitis location: unspecified location Qualified Code(s): J32.9 - Chronic sinusitis, unspecified - Problem List Review Problem List Initiated/Reviewed/Updated: Yes - Assessment Assessment:: 44 yo male admitted for strengthening after a clavicle fracture he sustained from a fall at home. This is now resolved. Ongoing issue is related to a sacral pressure ulcer for which he is requiring wound cares. - Plan Plan:: #1 Sacral pressure ulcer - Wound cares as per [place] team. - He will be returning to [place] later this week for additional debridement as well as colostomy placement. #2 Clavicle Fracture - This is clinically healed. X-rays had remained unchanged but he is no longer having any pain. #3 Hypertension #4 MS #5 Constipation #6 Obesity #7 Chronic sinusitis - All stable. - Continue home medications. Patient will remain on swing bed at this time - main ongoing issue is his wound. He does have an apartment arranged in [place] as early as 07/16. However , the timing of his discharge from swing bed really depends on his wound care plan after his procedures later this week. Continue home medications. No VTE prophylaxis is indicated as patient is at his usual functional status. Code status is DNR/DNI - discussed with patient on admission.
[2019-07-09] MEDS: Cholecalciferol (Vitamin D3) 25 MCG Tab PO SCH (08:53)
[2019-07-09] MEDS: Multivitamins with Iron/Calcium/Folic Acid/Minerals Tab PO SCH (08:54)
[2019-07-09] MEDS: FLUTICASONE PROPIONATE NASBOTH SCH ×2 (08:54→20:20)
[2019-07-09] MEDS: Ascorbic Acid 500 MG Tab PO SCH (08:54)
[2019-07-09] MEDS: Cyanocobalamin (Vitamin B12) 250 MCG Tab PO SCH ×2 (08:54→20:21)
[2019-07-09] MEDS: Miconazole 2% Top Powder 45 GM Container TOP SCH ×2 (08:54→20:21)
[2019-07-09] MEDS ORDERED: Acetaminophen 325 MG Tab PO PRN (09:05)
--- NOTE | 2019-07-09 13:16 | PCM.SN ---
- Free Text/Narrative Note: Contacted by nursing in regard to fever last night and today. Urine also with significant sediment. Patient otherwise asymptomatic. Labs obtained. WBC actually improved compared to prior but u/a significantly abnormal. Will start ciprofloxacin given chronic indwelling catheter and fever as well as patient previous tolerance to this. Urine to be sent for culture. All patient's questions answered.
[2019-07-09] MEDS: Ciprofloxacin 500 MG Tab PO SCH ×2 (13:57→20:21)
[2019-07-09 14:45] LABS: CHLORIDE,CL 99 mmol/L (98-107); SODIUM,NA 134 mmol/L (136-145)
[2019-07-09 14:46] LABS: ANION GAP 14.6 mmol/L (10-20)
[2019-07-09] MEDS: Acetaminophen 500 MG Tab PO PRN ×2 (15:55→22:05)
[2019-07-09] MEDS ORDERED: Lactobacillus Rhamnosus GG (Probiotic) Cap PO SCH (18:00)
[2019-07-09] MEDS: Lactobacillus Rhamnosus GG (Probiotic) Cap PO SCH (18:28)
[2019-07-10] MEDS: FLUTICASONE PROPIONATE NASBOTH SCH ×2 (07:55→19:48)
[2019-07-10] MEDS: Cyanocobalamin (Vitamin B12) 250 MCG Tab PO SCH ×2 (07:56→19:49)
[2019-07-10] MEDS: Cholecalciferol (Vitamin D3) 25 MCG Tab PO SCH (07:56)
[2019-07-10] MEDS: Miconazole 2% Top Powder 45 GM Container TOP SCH ×2 (07:56→19:49)
[2019-07-10] MEDS: Ciprofloxacin 500 MG Tab PO SCH ×2 (07:56→19:49)
[2019-07-10] MEDS: Ascorbic Acid 500 MG Tab PO SCH (07:56)
[2019-07-10] MEDS: Multivitamins with Iron/Calcium/Folic Acid/Minerals Tab PO SCH (07:56)
[2019-07-10] MEDS: Lactobacillus Rhamnosus GG (Probiotic) Cap PO SCH ×2 (09:59→17:35)
[2019-07-10] MEDS: Acetaminophen 500 MG Tab PO PRN (20:35)
[2019-07-11 06:18] VITALS: BP 109/52; PULSE 88
[2019-07-11] MEDS: Ascorbic Acid 500 MG Tab PO SCH (08:57)
[2019-07-11] MEDS: Ciprofloxacin 500 MG Tab PO SCH ×2 (08:57→20:19)
[2019-07-11] MEDS: Cholecalciferol (Vitamin D3) 25 MCG Tab PO SCH (08:57)
[2019-07-11] MEDS: FLUTICASONE PROPIONATE NASBOTH SCH ×2 (08:58→20:20)
[2019-07-11] MEDS: Miconazole 2% Top Powder 45 GM Container TOP SCH ×2 (08:58→20:20)
[2019-07-11] MEDS: Multivitamins with Iron/Calcium/Folic Acid/Minerals Tab PO SCH (08:58)
[2019-07-11] MEDS: Cyanocobalamin (Vitamin B12) 250 MCG Tab PO SCH ×2 (08:59→20:20)
[2019-07-11] MEDS: Lactobacillus Rhamnosus GG (Probiotic) Cap PO SCH ×2 (09:00→18:08)
[2019-07-11] MEDS: Acetaminophen 500 MG Tab PO PRN (11:49)
[2019-07-12] MEDS: Miconazole 2% Top Powder 45 GM Container TOP SCH (16:11)
[2019-07-12] MEDS: FLUTICASONE PROPIONATE NASBOTH SCH (16:11)
[2019-07-12] MEDS: Cyanocobalamin (Vitamin B12) 250 MCG Tab PO SCH (16:11)
[2019-07-12] MEDS: Ciprofloxacin 500 MG Tab PO SCH (16:11)
[2019-07-12] MEDS: Multivitamins with Iron/Calcium/Folic Acid/Minerals Tab PO SCH (16:11)
[2019-07-12] MEDS: Ascorbic Acid 500 MG Tab PO SCH (16:11)
[2019-07-12] MEDS: Lactobacillus Rhamnosus GG (Probiotic) Cap PO SCH (16:12)
[2019-07-12] MEDS: Cholecalciferol (Vitamin D3) 25 MCG Tab PO SCH (16:12)
[2019-07-13] MEDS: Lactobacillus Rhamnosus GG (Probiotic) Cap PO SCH ×2 (07:18→12:16)
[2019-07-13] MEDS: Miconazole 2% Top Powder 45 GM Container TOP SCH ×2 (07:19→09:34)
[2019-07-13] MEDS: Ciprofloxacin 500 MG Tab PO SCH ×2 (07:19→09:34)
[2019-07-13] MEDS: Cyanocobalamin (Vitamin B12) 250 MCG Tab PO SCH ×2 (07:19→09:35)
[2019-07-13] MEDS: FLUTICASONE PROPIONATE NASBOTH SCH ×2 (07:19→09:35)
[2019-07-13] MEDS: Multivitamins with Iron/Calcium/Folic Acid/Minerals Tab PO SCH (09:35)
[2019-07-13] MEDS: Cholecalciferol (Vitamin D3) 25 MCG Tab PO SCH (09:35)
[2019-07-13] MEDS: Ascorbic Acid 500 MG Tab PO SCH (09:35)
[2019-07-15] MEDS: Miconazole 2% Top Powder 45 GM Container TOP SCH ×3 (08:34→08:37)
[2019-07-15] MEDS: Lactobacillus Rhamnosus GG (Probiotic) Cap PO SCH ×4 (08:34→18:52)
[2019-07-15] MEDS: FLUTICASONE PROPIONATE NASBOTH SCH ×2 (08:35→08:37)
[2019-07-15] MEDS: Cyanocobalamin (Vitamin B12) 250 MCG Tab PO SCH ×2 (08:35→08:37)
[2019-07-15] MEDS: Ascorbic Acid 500 MG Tab PO SCH (08:36)
[2019-07-15] MEDS: Ciprofloxacin 500 MG Tab PO SCH ×3 (08:36→08:38)
[2019-07-15] MEDS: Multivitamins with Iron/Calcium/Folic Acid/Minerals Tab PO SCH (08:36)
[2019-07-15] MEDS: Cholecalciferol (Vitamin D3) 25 MCG Tab PO SCH (08:36)
--- NOTE | 2019-07-16 10:26 | PCM.DCSUM1 ---
Discharge Summary - Hospital Course HPI Initial Comments: Patient was transferred to [place] on 07/11 with expectation to return on 07/14. He was not seen at that time. Given duration of hospitalization in [place] has extended past the extended time frame, the patient will now need to be discharged from [facility] and then re-admitted upon his return. Brief History: Mr. Epps is a 44 yo male who was admitted for ADL's and strengthening after sustaining a clavicle fracture from a fall at home. - Discharge Data Discharge Date: 07/12/19 Discharge Disposition: Home, Self-Care 01 Condition: Good - Referral to Home Health Primary Care Physician: Ember Mcqueen MD - Discharge Diagnosis/Problem(s) (1) Sacral decubitus ulcer SNOMED Code(s): 826542476 ICD Code: L89.159 - PRESSURE ULCER OF SACRAL REGION, UNSPECIFIED STAGE Status: Acute Current Visit: Yes Qualifiers: Pressure injury stage: unspecified pressure injury stage Qualified Code(s) : L89.159 - Pressure ulcer of sacral region, unspecified stage (2) Fracture of clavicle SNOMED Code(s): 66734280 ICD Code: S42.009A - FRACTURE OF UNSP PART OF UNSP CLAVICLE, INIT FOR CLOS FX Status: Resolved Current Visit: Yes Qualifiers: Encounter type: initial encounter Clavicle location: lateral end Fracture type: closed Fracture alignment: displaced Laterality: left Qualified Code(s): S42.032A - Displaced fracture of lateral end of left clavicle , initial encounter for closed fracture (3) Hypertension SNOMED Code(s): 65321044 ICD Code: I10 - ESSENTIAL (PRIMARY) HYPERTENSION Status: Chronic Current Visit: Yes Qualifiers: Hypertension type: essential hypertension Qualified Code(s): I10 - Essential (primary) hypertension (4) Multiple sclerosis SNOMED Code(s): 49513954 ICD Code: G35 - MULTIPLE SCLEROSIS Status: Chronic Current Visit: Yes (5) Constipation SNOMED Code(s): 98560442 ICD Code: K59.00 - CONSTIPATION, UNSPECIFIED Status: Chronic Current Visit: No Qualifiers: Constipation type: unspecified constipation type Qualified Code(s): K59.00 - Constipation, unspecified (6) Obesity SNOMED Code(s): 451969109, 050325279 ICD Code: E66.9 - OBESITY, UNSPECIFIED Status: Chronic Current Visit: Yes Qualifiers: Obesity type: due to excess calories Obesity classification: adult class 3 (BMI >= 40) (7) Chronic sinusitis SNOMED Code(s): 85106267 ICD Code: J32.9 - CHRONIC SINUSITIS, UNSPECIFIED Status: Chronic Current Visit: Yes Qualifiers: Sinusitis location: unspecified location Qualified Code(s): J32.9 - Chronic sinusitis, unspecified - Patient Summary/Data Consults: Consultations 05/14/19 14:29 Consult to Case Management/Ophthalmic Medical Technologist [CONS] Routine PT Evaluation and Treatment [CONS] Routine 05/14/19 16:26 Consult to Occupational Therapy [OT Evaluation and Treatment] [CONS] Routine Hospital Course: Patient was admitted and had PT and OT working with him for his clavicle fracture. This healed well and he returned to his usual baseline level of functioning. However, his hospitalization was complicated by a progression of a pressure wound. This has required wound consultation and cares as well as placement of an indwelling urinary catheter to limit contamination of the wound. Last week, he was transferred to [place] to undergo ostomy placement for the same purpose. He was to return yesterday but is not felt prepared to transfer back yet. He will be readmitted when he is prepared for discharge from [place]. His swing bed hospitalization was also complicated by fever presumed secondary to UTI for which he was treated with ciprofloxacin. - Discharge Plan Home Medications: Home Meds Acetaminophen 650 mg PO Q4H PRN 04/22/16 [History] Cholecalciferol (Vitamin D3) [Vitamin D3] 4,000 unit PO DAILY 05/31/16 [History] Fluticasone Propionate [Flonase] 1 spray NASBOTH DAILY 05/31/16 [History] Multivit,Calc,Mins/Iron/Folic [Thera-M] 1 tab PO DAILY 05/31/16 [History] Cyanocobalamin (Vitamin B12) [Vitamin B12] 500 mcg PO BID 07/11/16 [History] Sennosides/Docusate Sodium [Senna-S Tablet] 2 tab PO BEDTIME PRN 07/11/16 [ History] Ocrelizumab [Ocrevus] 300 mg IV Q180D 10/01/17 [History] Ascorbic Acid [Vitamin C] 500 mg PO DAILY 05/14/19 [History] lisinopriL [Lisinopril] 10 mg PO DAILY 05/14/19 [History] Forms: ED Department Discharge Referrals: Ember Mcqueen MD [Primary Care Provider] - - Discharge Summary/Plan Comment DC Time >30 min.: No - Patient Data Vitals - Most Recent: Last Vital Signs Temp 36.3 C 07/11/19 12:19 Pulse 88 07/11/19 06:00 Resp 17 07/11/19 06:00 BP 109/52 L 07/11/19 08:56 Pulse Ox 95 07/11/19 06:00 Weight - Most Recent: 152.31 kg XOCHITL Results - Last 24 hrs: Microbiology 07/09/19 12:00 Urine Culture - Preliminary Urine, Gutierrez Cath (Indwelling) Staphylococcus Aureus Gram Negative Rods Med Orders - Current: Current Medications Acetaminophen (Tylenol Extra Strength) 1,000 mg PO Q6H PRN PRN Reason: fever/pain Last Admin: 07/11/19 11:49 Dose: 1,000 mg Ascorbic Acid (Vitamin C) 500 mg PO DAILY [facility] Last Admin: 07/15/19 08:36 Dose: Not Given Cholecalciferol (Vitamin D3) 100 mcg PO DAILY [facility] Last Admin: 07/15/19 08:36 Dose: Not Given Cyanocobalamin (Vitamin B12) 500 mcg PO BID [facility] Last Admin: 07/15/19 08:37 Dose: Not Given Fluticasone Propionate (Flonase) 0 gm NASBOTH BID [facility] Last Admin: 07/15/19 08:37 Dose: Not Given Lactobacillus Rhamnosus (Culturelle) 1 cap PO BID@1000,1800 [facility] Last Admin: 07/15/19 18:52 Dose: Not Given Lisinopril (Prinivil) 10 mg PO DAILY [facility] Last Admin: 07/15/19 08:35 Dose: Not Given Miconazole (Desenex 2%) 0 gm TOP BID [facility] Last Admin: 07/15/19 08:37 Dose: Not Given Multivitamins/Minerals (Thera M Plus) 1 tab PO DAILY [facility] Last Admin: 07/15/19 08:36 Dose: Not Given Naproxen (Naproxen Sodium) 220 mg PO BIDMEALS [facility] Last Admin: 07/15/19 18:52 Dose: Not Given Senna/Docusate Sodium (Senna Plus) 2 tab PO BEDTIME PRN PRN Reason: Constipation Last Admin: 06/22/19 14:02 Dose: 2 tab Discontinued Medications Acetaminophen (Tylenol Extra Strength) 1,000 mg PO TID [facility] Last Admin: 07/09/19 08:54 Dose: 1,000 mg Acetaminophen (Tylenol) 650 mg PO Q6H PRN PRN Reason: fever/pain Ciprofloxacin (Ciprofloxacin Hcl) 500 mg PO BID [facility] Last Admin: 07/15/19 08:38 Dose: Not Given Fentanyl (Sublimaze) 100 mcg IVPUSH ONETIME ONE Stop: 05/14/19 12:22 Last Admin: 05/14/19 12:32 Dose: 100 mcg Lactobacillus Rhamnosus (Culturelle) 1 cap PO BID@1000,2200 [facility] Last Admin: 07/09/19 17:43 Dose: 1 cap Miscellaneous Medication (Medihoney) 1 ml TP DAILY [facility] Last Admin: 06/09/19 09:06 Dose: Not Given Nystatin (Nystatin Crm) 1 gm TOP BID [facility] Last Admin: 06/04/19 11:51 Dose: Not Given Oxycodone HCl (Oxycodone) 5 mg PO Q6H PRN PRN Reason: Breakthrough Pain Last Admin: 05/19/19 03:07 Dose: 5 mg Senna/Docusate Sodium (Senna Plus) 2 tab PO BEDTIME PRN PRN Reason: Constipation Last Admin: 05/18/19 08:25 Dose: 2 tab Senna/Docusate Sodium (Senna Plus) 2 tab PO BEDTIME [facility] Last Admin: 05/22/19 20:18 Dose: Not Given Senna/Docusate Sodium (Senna Plus) 1 tab PO DAILY [facility] Last Admin: 05/23/19 08:07 Dose: Not Given *Q Meaningful Use (DIS) - VTE *Q VTE Anticoagulation Contraindications: Med/TX Not Indicated/Need
== END 2019-07-12 05:50 | disposition home or self-care (01) | DRG 560 ==
LOC: VM.ED 11:46 → VM.MS 13:35 → UNDOADMIN 13:35
PROVIDERS: ADMIT Family Medicine; ATTEND Family Medicine
DX: S42.032D Displaced fracture of lateral end of left clavicle, subsequent encounter for fracture with routine healing (principal); N39.0 Urinary tract infection, site not specified; Z68.42 Body mass index [BMI] 45.0-49.9, adult; I10 Essential (primary) hypertension; S42.032A Displaced fracture of lateral end of left clavicle, initial encounter for closed fracture; K59.00 Constipation, unspecified; Z66 Do not resuscitate; E66.9 Obesity, unspecified; J32.9 Chronic sinusitis, unspecified; L89.159 Pressure ulcer of sacral region, unspecified stage; W05.0XXA Fall from non-moving wheelchair, initial encounter; G35 Multiple sclerosis; Z88.8 Allergy status to other drugs, medicaments and biological substances; N31.9 Neuromuscular dysfunction of bladder, unspecified; Z88.1 Allergy status to other antibiotic agents; Z91.02 Food additives allergy status; Z91.011 Allergy to milk products; Z79.899 Other long term (current) drug therapy
CPT/HCPCS: 36415; 51702; 73000-LT; 73030-LT; 80048; 81001; 85025; 85652; 86140; 87086; 87088; 87147; 87186; 96374; 97110-GO; 97110-GP; 97161-GP; 97164-GP; 97165-GO; 97168-GO; 97530-GP; 97535-GO; 99284-GF; 99285-25; A9270-GY; J3010

== ENCOUNTER 2019-07-19 14:46 | Inpatient (IN) | payer MEDICARE, MEDICAID ==
--- NOTE | 2019-07-19 15:46 | PCM.HP.2 ---
H&P History of Present Illness - General Date of Service: 07/19/19 Source of Information: Patient History Limitations: Reports: No Limitations - History of Present Illness Initial Comments - Free Text/Narative: Mr. Epps is a 44 yo male with PMH of MS, HTN, chronic sinusitis, obesity, and neurogenic bladder who returns to swing bed after a 1 week stay at [facility]. He was initially transferred there 1 week ago for plans for I&D of his sacral wound as well as creation of a temporary ostomy. This was done successfully on 07/11 but he was not felt prepared for transfer back to [facility] earlier this week as it was felt he would benefit from further I&D of his wound. This was done on 07/14 at which time a wound vac was also placed. He then underwent suprapubic catheter placement by ID on 07/15. ID was also consulted for presumed sacral osteomyelitis and he was treated with IV antibiotics for this. The plan for antibiotics is to continue zosyn for 6 weeks with weekly labs. His hospitalization was otherwise uncomplicated. Upon arrival to the floor, he denies any other questions or concerns. He denies any pain at this time. He denies any issues with the suprapubic catheter or the ostomy. He is having normal outputs from both. He denies any abdominal pain. He denies any fever or chills. ROS is otherwise negative. - Related Data Allergies/Adverse Reactions: Allergies Allergy/AdvReac Type Severity Reaction Status Date / Time ceftriaxone sodium Allergy Rash Verified 05/14/19 12:03 [From Rocephin] doxycycline Allergy Cannot Verified 05/14/19 14:04 Remember Dairy Products AdvReac Diarrhea Verified 05/14/19 12:03 gluten AdvReac Diarrhea Verified 05/14/19 12:03 Home Medications: Home Meds Acetaminophen 650 mg PO Q4H PRN 04/22/16 [History] Cholecalciferol (Vitamin D3) [Vitamin D3] 4,000 unit PO DAILY 05/31/16 [History] Fluticasone Propionate [Flonase] 1 spray NASBOTH BID 05/31/16 [History] Multivit,Calc,Mins/Iron/Folic [Thera-M] 1 tab PO DAILY 05/31/16 [History] Cyanocobalamin (Vitamin B12) [Vitamin B12] 500 mcg PO BID 07/11/16 [History] Sennosides/Docusate Sodium [Senna-S Tablet] 2 tab PO BEDTIME PRN 07/11/16 [ History] Ocrelizumab [Ocrevus] 300 mg IV Q180D 10/01/17 [History] Ascorbic Acid [Vitamin C] 500 mg PO DAILY 05/14/19 [History] lisinopriL [Lisinopril] 10 mg PO DAILY 05/14/19 [History] Past Medical History - Past Health History Medical/Surgical History: Denies Medical/Surgical History HEENT History: Reports: None Cardiovascular History: Reports: None, Other (See Below) Other Cardiovascular History: essential hypertension Respiratory History: Reports: None, Other (See Below) Other Respiratory History: chronic pansinusitis Gastrointestinal History: Reports: None Genitourinary History: Reports: Neurogenic Bladder Musculoskeletal History: Reports: None Other Musculoskeletal History: MS dx 2000 with recent exacerbation Neurological History: Reports: MS Psychiatric History: Reports: None Endocrine/Metabolic History: Reports: None, Obesity/BMI 30+ Hematologic History: Reports: None Immunologic History: Reports: None Oncologic (Cancer) History: Reports: None Dermatologic History: Reports: None - Infectious Disease History Infectious Disease History: Reports: None - Past Surgical History GI Surgical History: Reports: Colostomy Male Surgical History: Reports: Suprapubic Catheter Placement Neurological Surgical History: Reports: None Social & Family History - Family History HEENT: Reports: Glaucoma Cardiac: Reports: [place] : Reports: Dialysis Endocrine/Metabolic: Reports: Diabetes, type II - Tobacco Use Smoking Status *Q: Never Smoker - Caffeine Use Caffeine Use: Reports: Tea Caffeine Use Comment: green tea - Alcohol Use Alcohol Use History: No - Recreational Drug Use Recreational Drug Use: No - Living Situation & Occupation Living situation: Reports: Single, Alone (considering transition to a SNF but is not ready for that yet) Occupation: Disabled H&P Review of Systems - Review of Systems: Review Of Systems: See Below General: Reports: No Symptoms HEENT: Reports: No Symptoms Pulmonary: Reports: No Symptoms Cardiovascular: Reports: No Symptoms Gastrointestinal: Reports: No Symptoms Genitourinary: Reports: No Symptoms Musculoskeletal: Reports: No Symptoms Skin: Reports: No Symptoms Psychiatric: Reports: No Symptoms Neurological: Reports: No Symptoms Exam - Exam Exam: See Below - Exam General: Alert, Oriented, Cooperative HEENT: Conjunctiva Clear, Mucosa Moist & [place], Pupils Equal, Pupils Reactive Neck: Supple, Trachea Midline. No: Lymphadenopathy, Thyromegaly Lungs: Clear to Auscultation, Normal Respiratory Effort Cardiovascular: Regular Rate, Regular Rhythm, Normal S1, Normal S2 GI/Abdominal Exam: Normal Bowel Sounds, Soft, Non-Tender, No Organomegaly, No Distention, No Mass Extremities: Non-Tender, No Pedal Edema, Normal Capillary Refill Peripheral Pulses: 2+: Radial (L), Radial (R) Skin: Warm, Dry Neuro Extensive - Mental Status: Alert, Oriented x3, Other (Stable chronic deficits) - Problem List (1) Sacral decubitus ulcer SNOMED Code(s): 981653256 ICD Code: L89.159 - PRESSURE ULCER OF SACRAL REGION, UNSPECIFIED STAGE Status: Acute Current Visit: No Qualifiers: Pressure injury stage: unspecified pressure injury stage Qualified Code(s) : L89.159 - Pressure ulcer of sacral region, unspecified stage (2) Sacral osteomyelitis SNOMED Code(s): 545190120, 455170069 ICD Code: M46.28 - OSTEOMYELITIS OF VERTEBRA, SACRAL AND SACROCOCCYGEAL REGION Status: Acute Current Visit: Yes (3) Neurogenic bladder SNOMED Code(s): 660505053 ICD Code: N31.9 - NEUROMUSCULAR DYSFUNCTION OF BLADDER, UNSPECIFIED Status : Chronic Current Visit: No Problem Details: Not on any medications due to intolerance to oxybutynin in the past. He is considering a suprapubic catheter but is not sure at this time. (4) History of creation of ostomy SNOMED Code(s): 007176403 ICD Code: Z93.9 - ARTIFICIAL OPENING STATUS, UNSPECIFIED Status: Acute Current Visit: Yes (5) Chronic sinusitis SNOMED Code(s): 29504948 ICD Code: J32.9 - CHRONIC SINUSITIS, UNSPECIFIED Status: Chronic Current Visit: No Qualifiers: Sinusitis location: unspecified location Qualified Code(s): J32.9 - Chronic sinusitis, unspecified (6) Hypertension SNOMED Code(s): 73032033 ICD Code: I10 - ESSENTIAL (PRIMARY) HYPERTENSION Status: Chronic Current Visit: No Qualifiers: Hypertension type: essential hypertension Qualified Code(s): I10 - Essential (primary) hypertension (7) Multiple sclerosis SNOMED Code(s): 37430519 ICD Code: G35 - MULTIPLE SCLEROSIS Status: Chronic Current Visit: No (8) Obesity SNOMED Code(s): 734650511, 707864034 ICD Code: E66.9 - OBESITY, UNSPECIFIED Status: Chronic Current Visit: No Qualifiers: Obesity type: due to excess calories Obesity classification: adult class 3 (BMI >= 40) Problem List Initiated/Reviewed/Updated: Yes Orders Last 24hrs: Active Orders 24 hr Category Date Time Status Communication Order [RC] [id number] Care 07/19/19 15:23 Active Consult to Physical Therapy [PT Evaluation and Cons 07/19/19 15:32 Active Treatment] [CONS] Routine OT Evaluation and Treatment [CONS] Routine Cons 07/19/19 15:36 Active Assessment/Plan Comment:: #1 Sacral Decubitus Ulcer #2 Sacral Osteomyelitis - Continue wound cares as ordered by [facility]. - Follow-up with surgery is scheduled. - Continue zosyn. - Weekly labs as ordered by ID. - No ID follow-up needed at this time per the hospital team. #3 Neurogenic Bladder - Suprapubic catheter in place and draining well. #[address] - Also functioning well. - As above, surgery follow-up is scheduled. #5 Chronic Sinusitis #6 Hypertension #7 MS #8 Obesity - Continue home medications. - Ocrevus infusion scheduled in [facility] later this month. - PT and OT consults. Patient will be admitted to swing bed - anticipate long duration of stay due to need for wound cares and assistance with ADL's without an alternative option at this time. [facility] has declined patient for admission. Code status is DNR/DNI - discussed with patient on admission. Patient does not need VTE prophylaxis given he is at his usual functional baseline.
[2019-07-19] MEDS ORDERED: Piperacillin/Tazobactam 4.5 GM in Sodium Chloride 0.9% 100 ML IV SCH ×2 (16:45→17:00)
[2019-07-19] MEDS ORDERED: Sodium Chloride 0.9% 10 ML Syringe IV PRN (16:54)
[2019-07-19] MEDS ORDERED: Heparin Sodium 100 Units/ML 3 ML Syringe IVPUSH PRN (16:55)
[2019-07-19] MEDS ORDERED: Heparin Sodium 100 Units/ML 3 ML Syringe IVPUSH SCH (17:00)
[2019-07-19] MEDS ORDERED: Acetaminophen 325 MG Tab PO PRN (17:41)
[2019-07-19] MEDS ORDERED: Fluticasone Propionate Nasal Spray 16 GM Bottle NASBOTH SCH (20:00)
[2019-07-19] MEDS ORDERED: Cyanocobalamin (Vitamin B12) 250 MCG Tab PO SCH (20:00)
--- NOTE | 2019-07-19 20:01 | PCM.DCSUM1 ---
Discharge Summary - Hospital Course Brief History: Patient returned to swing bed from [place] today after he had been admitted at [place] for 1 week for I&D of a sacral decubitus ulcer complicated by sacral osteomyelitis. - Discharge Data Discharge Date: 07/19/19 Discharge Disposition: DC/Tfer to Acute Hospital 02 Condition: Good - Referral to Home Health Primary Care Physician: Ember Mcqueen MD - Discharge Diagnosis/Problem(s) (1) Sacral decubitus ulcer SNOMED Code(s): 853391346 ICD Code: L89.159 - PRESSURE ULCER OF SACRAL REGION, UNSPECIFIED STAGE Status: Acute Current Visit: No Qualifiers: Pressure injury stage: unspecified pressure injury stage Qualified Code(s) : L89.159 - Pressure ulcer of sacral region, unspecified stage (2) Sacral osteomyelitis SNOMED Code(s): 840302619, 264283842 ICD Code: M46.28 - OSTEOMYELITIS OF VERTEBRA, SACRAL AND SACROCOCCYGEAL REGION Status: Acute Current Visit: Yes (3) Neurogenic bladder SNOMED Code(s): 349584406 ICD Code: N31.9 - NEUROMUSCULAR DYSFUNCTION OF BLADDER, UNSPECIFIED Status : Chronic Current Visit: No Problem Details: Not on any medications due to intolerance to oxybutynin in the past. He is considering a suprapubic catheter but is not sure at this time. (4) History of creation of ostomy SNOMED Code(s): 222349028 ICD Code: Z93.9 - ARTIFICIAL OPENING STATUS, UNSPECIFIED Status: Acute Current Visit: Yes (5) Chronic sinusitis SNOMED Code(s): 89902567 ICD Code: J32.9 - CHRONIC SINUSITIS, UNSPECIFIED Status: Chronic Current Visit: No Qualifiers: Sinusitis location: unspecified location Qualified Code(s): J32.9 - Chronic sinusitis, unspecified (6) Hypertension SNOMED Code(s): 13705412 ICD Code: I10 - ESSENTIAL (PRIMARY) HYPERTENSION Status: Chronic Current Visit: No Qualifiers: Hypertension type: essential hypertension Qualified Code(s): I10 - Essential (primary) hypertension (7) Multiple sclerosis SNOMED Code(s): 06836071 ICD Code: G35 - MULTIPLE SCLEROSIS Status: Chronic Current Visit: No (8) Obesity SNOMED Code(s): 513280367, 725770232 ICD Code: E66.9 - OBESITY, UNSPECIFIED Status: Chronic Current Visit: No Qualifiers: Obesity type: due to excess calories Obesity classification: adult class 3 (BMI >= 40) - Patient Summary/Data Consults: Consultations 07/19/19 15:32 Consult to Physical Therapy [PT Evaluation and Treatment] [CONS] Routine 07/19/19 15:36 OT Evaluation and Treatment [CONS] Routine Hospital Course: The patient arrived this afternoon. As the nurse was cleaning the wound prior to applying the wound vac, the wound began to bleed. She applied pressure for 30 minutes. When this was ineffective, she packed the wound and had the patient lay supine hoping this would apply additional pressure. I was then contacted 30 minutes after this was started due to the wound continuing to bleed. I evaluated the wound and was unable to see the source of bleeding in order to perform any cautery. Therefore, I contacted the patient's surgeon in [place] who recommended transfer back to the ED for further evaluation by the surgery team. The patient is in agreement with this plan. The wound will be packed with saline gauze topped by a pressure bandage for transport. - Discharge Plan Home Medications: Home Meds Acetaminophen 650 mg PO Q4H PRN 04/22/16 [History] Cholecalciferol (Vitamin D3) [Vitamin D3] 4,000 unit PO DAILY 05/31/16 [History] Fluticasone Propionate [Flonase] 1 spray NASBOTH BID 05/31/16 [History] Multivit,Calc,Mins/Iron/Folic [Thera-M] 1 tab PO DAILY 05/31/16 [History] Cyanocobalamin (Vitamin B12) [Vitamin B12] 500 mcg PO BID 07/11/16 [History] Sennosides/Docusate Sodium [Senna-S Tablet] 2 tab PO BEDTIME PRN 07/11/16 [ History] Ocrelizumab [Ocrevus] 300 mg IV Q180D 10/01/17 [History] Ascorbic Acid [Vitamin C] 500 mg PO DAILY 05/14/19 [History] lisinopriL [Lisinopril] 10 mg PO DAILY 05/14/19 [History] - Discharge Summary/Plan Comment DC Time >30 min.: Yes - Patient Data Vitals - Most Recent: Last Vital Signs Temp 38.0 C 07/19/19 18:59 Pulse 87 04/03/20 18:59 Resp 16 07/19/19 18:59 BP 107/66 07/19/19 18:59 Pulse Ox 99 07/19/19 18:59 Weight - Most Recent: 142.428 kg I&O - Last 24 hours: Intake & Output 07/19/19 07/19/19 07/19/19 06:59 14:59 22:59 Output Total 200 Balance -200 Med Orders - Current: Current Medications Acetaminophen (Tylenol) 650 mg PO Q4H PRN PRN Reason: Pain (mild 1-3) Ascorbic Acid (Vitamin C) 500 mg PO DAILY [facility] Cholecalciferol (Vitamin D3) 100 mcg PO DAILY [facility] Cyanocobalamin (Vitamin B12) 500 mcg PO BID [facility] Fluticasone Propionate (Flonase) 0 gm NASBOTH BID [facility] Heparin Sodium (Porcine) (Heparin Lock Flush 100 Units/Ml) 300 unit IVPUSH Q8H [facility] Last Admin: 07/19/19 17:28 Dose: Not Given Heparin Sodium (Porcine) (Heparin Lock Flush 100 Units/Ml) 300 unit IVPUSH ASDIRECTED PRN PRN Reason: Keep Vein Open Piperacillin Sod/Tazobactam (Sod 4.5 gm/ Sodium Chloride) 100 mls @ 25 mls/hr IV Q8H [facility] Stop: 08/28/19 16:00 Last Admin: 07/19/19 17:23 Dose: 25 mls/hr Lisinopril (Prinivil) 10 mg PO DAILY [facility] Multivitamins/Minerals (Thera M Plus) 1 tab PO DAILY [facility] Senna/Docusate Sodium (Senna Plus) 2 tab PO BEDTIME PRN PRN Reason: Constipation Sodium Chloride (Saline Flush) 10 ml IV Q8HR@0000,0800,1600 [place]AL Sodium Chloride (Saline Flush) 10 ml IV ASDIRECTED PRN PRN Reason: Keep Vein Open Last Admin: 07/19/19 17:23 Dose: 10 ml Discontinued Medications Piperacillin Sod/Tazobactam (Sod 4.5 gm/ Sodium Chloride) 100 mls @ 25 mls/hr IV Q8H [facility] Last Admin: 07/19/19 17:28 Dose: Not Given *Q Meaningful Use (DIS) - VTE *Q VTE Anticoagulation Contraindications: Med/TX Not Indicated/Need
[2019-07-19 20:37] VITALS: BP 111/72; PULSE 98
[2019-07-20] MEDS ORDERED: Sodium Chloride 0.9% 10 ML Syringe IV SCH
[2019-07-20] MEDS ORDERED: Ascorbic Acid 500 MG Tab PO SCH (08:00)
[2019-07-20] MEDS ORDERED: Lisinopril 10 MG Tab PO SCH (08:00)
[2019-07-20] MEDS ORDERED: Cholecalciferol (Vitamin D3) 25 MCG Tab PO SCH (08:00)
[2019-07-20] MEDS ORDERED: Multivitamins with Iron/Calcium/Folic Acid/Minerals Tab PO SCH (08:00)
== END 2019-07-19 21:00 | disposition short-term general hospital (02) | DRG 593 ==
LOC: VM.MS 14:46
PROVIDERS: ADMIT Family Medicine; ATTEND Family Medicine
DX: L89.159 Pressure ulcer of sacral region, unspecified stage (principal); M46.28 Osteomyelitis of vertebra, sacral and sacrococcygeal region; Z68.42 Body mass index [BMI] 45.0-49.9, adult; N31.9 Neuromuscular dysfunction of bladder, unspecified; J32.9 Chronic sinusitis, unspecified; I10 Essential (primary) hypertension; Z66 Do not resuscitate; G35 Multiple sclerosis; E66.9 Obesity, unspecified; Z93.9 Artificial opening status, unspecified; Z88.1 Allergy status to other antibiotic agents; Z91.011 Allergy to milk products; Z79.899 Other long term (current) drug therapy; Z96.0 Presence of urogenital implants
CPT/HCPCS: J2543; J7050

== ENCOUNTER 2019-07-20 02:41 | Inpatient (IN) | payer MEDICARE, MEDICAID ==
[2019-07-20] MEDS ORDERED: Piperacillin/Tazobactam 4.5 GM in Sodium Chloride 0.9% 100 ML IV SCH (06:45)
[2019-07-20] MEDS: Piperacillin/Tazobactam 4.5 GM in Sodium Chloride 0.9% 100 ML IV SCH ×3 (08:50→23:51)
[2019-07-20] MEDS: Sodium Chloride 0.9% 10 ML Syringe IV SCH ×5 (08:55→23:49)
[2019-07-20] MEDS: Acetaminophen 325 MG Tab PO PRN (08:56)
[2019-07-20] MEDS: Cyanocobalamin (Vitamin B12) 250 MCG Tab PO SCH ×2 (08:57→20:21)
[2019-07-20] MEDS: Cholecalciferol (Vitamin D3) 25 MCG Tab PO SCH (08:57)
[2019-07-20] MEDS: Lisinopril 10 MG Tab PO SCH (08:57)
[2019-07-20] MEDS: Multivitamins with Iron/Calcium/Folic Acid/Minerals Tab PO SCH (08:57)
[2019-07-20] MEDS: Ascorbic Acid 500 MG Tab PO SCH (08:58)
[2019-07-20] MEDS: Fluticasone Propionate Nasal Spray 16 GM Bottle NASBOTH SCH ×2 (08:58→20:23)
[2019-07-20] MEDS: Heparin Sodium 100 Units/ML 3 ML Syringe IVPUSH SCH ×2 (13:14→20:23)
--- NOTE | 2019-07-20 13:19 | PCM.PN ---
- General Info Date of Service: 07/20/19 Subjective Update: Patient was admitted back to swing bed yesterday after a 1 week stay in [place] for I&D of his sacral wound as well as consultation with ID for management of sacral osteomyelitis. He was then discharged back to [place] last evening due to bleeding from his sacral wound that was not controlled with pressure. It was unclear whether he would stay in [place] for any period of time or return last evening; therefore, he was discharged. Please see admission H&P as well as discharge summary from yesterday for further details. They were able to control the bleeding with a single suture and he was felt stable to return to swing bed. Thus, he returned overnight without complication. He denies any concerns today. He is not having any pain. No fever or chills. ROS otherwise negative as below. - Review of Systems General: Reports: No Symptoms HEENT: Reports: No Symptoms Pulmonary: Reports: No Symptoms Cardiovascular: Reports: No Symptoms Gastrointestinal: Reports: No Symptoms Genitourinary: Reports: No Symptoms Musculoskeletal: Reports: No Symptoms Skin: Reports: No Symptoms Neurological: Reports: No Symptoms - Patient Data Vitals - Most Recent: Last Vital Signs Temp 36.7 C 07/20/19 06:26 Pulse 90 07/20/19 06:26 Resp 18 07/20/19 06:26 BP 110/68 07/20/19 08:57 Pulse Ox 97 07/20/19 06:26 Weight - Most Recent: 142.428 kg I&O - Last 24 Hours: Intake & Output 07/19/19 07/20/19 07/20/19 22:59 06:59 14:59 Intake Total 100 240 Output Total 250 Balance -150 240 Med Orders - Current: Current Medications Acetaminophen (Tylenol) 650 mg PO Q4H PRN PRN Reason: Pain (mild 1-3) Last Admin: 07/20/19 08:56 Dose: 650 mg Ascorbic Acid (Vitamin C) 500 mg PO DAILY [facility] Last Admin: 07/20/19 08:58 Dose: 500 mg Cholecalciferol (Vitamin D3) 100 mcg PO DAILY [facility] Last Admin: 07/20/19 08:57 Dose: 100 mcg Cyanocobalamin (Vitamin B12) 500 mcg PO BID [facility] Last Admin: 07/20/19 08:57 Dose: 500 mcg Fluticasone Propionate (Flonase) 0 gm NASBOTH BID [facility] Last Admin: 07/20/19 08:58 Dose: 1 spray Heparin Sodium (Porcine) (Heparin Lock Flush 100 Units/Ml) 300 unit IVPUSH Q8H [facility] Heparin Sodium (Porcine) (Heparin Lock Flush 100 Units/Ml) 300 unit IVPUSH ASDIRECTED PRN PRN Reason: Keep Vein Open Piperacillin Sod/Tazobactam (Sod 4.5 gm/ Sodium Chloride) 100 mls @ 25 mls/hr IV Q8H [facility] Stop: 08/28/19 17:00 Last Admin: 07/20/19 08:50 Dose: 25 mls/hr Lisinopril (Prinivil) 10 mg PO DAILY [facility] Last Admin: 07/20/19 08:57 Dose: 10 mg Multivitamins/Minerals (Thera M Plus) 1 tab PO DAILY [facility] Last Admin: 07/20/19 08:57 Dose: 1 tab Senna/Docusate Sodium (Senna Plus) 2 tab PO BEDTIME PRN PRN Reason: Constipation Sodium Chloride (Saline Flush) 10 ml IV Q8HR@0000,0800,1600 [facility] Last Admin: 07/20/19 08:55 Dose: 10 ml Sodium Chloride (Saline Flush) 10 ml IV ASDIRECTED PRN PRN Reason: Keep Vein Open Sodium Chloride (Saline Flush) 10 ml IV Q8HR@1200,2000,0400 [facility] Discontinued Medications Piperacillin Sod/Tazobactam (Sod 4.5 gm/ Sodium Chloride) 100 mls @ 25 mls/hr IV Q8H [facility] Last Admin: 07/20/19 08:20 Dose: Not Given - Exam General: Alert, Oriented, Cooperative, No Acute Distress HEENT: Mucous Membr. Moist/[place] Neck: Supple, Trachea Midline, No Thyromegaly. No: Lymphadenopathy Lungs: Clear to Auscultation, Normal Respiratory Effort Cardiovascular: Regular Rate, Regular Rhythm, No Murmurs GI/Abdominal Exam: Normal Bowel Sounds, Soft, Non-Tender, No Organomegaly, No Distention, No Mass Extremities: Non-Tender, No Pedal Edema Peripheral Pulses: 2+: Radial (L), Radial (R) Skin: Warm, Dry Sepsis Event Note - Evaluation Sepsis Screening Result: No Definite Risk - Focused Exam Vital Signs: Vital Signs Temp Pulse Resp BP BP Pulse Ox 07/20/19 08:57 110/68 04/04/20 06:26 36.7 C 90 18 110/68 97 07/20/19 02:45 36.9 C 91 17 106/56 L 98 Date Exam was Performed: 07/20/19 Time Exam was Performed: 13:20 - Problem List & Annotations (1) Sacral decubitus ulcer SNOMED Code(s): 305043925 Code(s): L89.159 - PRESSURE ULCER OF SACRAL REGION, UNSPECIFIED STAGE Status: Acute Current Visit: No Qualifiers: Pressure injury stage: unspecified pressure injury stage Qualified Code(s) : L89.159 - Pressure ulcer of sacral region, unspecified stage (2) Sacral osteomyelitis SNOMED Code(s): 621380769, 667129903 Code(s): M46.28 - OSTEOMYELITIS OF VERTEBRA, SACRAL AND SACROCOCCYGEAL REGION Status: Acute Current Visit: No (3) Neurogenic bladder SNOMED Code(s): 931358118 Code(s): N31.9 - NEUROMUSCULAR DYSFUNCTION OF BLADDER, UNSPECIFIED Status: Chronic Current Visit: No (4) History of creation of ostomy SNOMED Code(s): 001612982 Code(s): Z93.9 - ARTIFICIAL OPENING STATUS, UNSPECIFIED Status: Acute Current Visit: No (5) Multiple sclerosis SNOMED Code(s): 79232349 Code(s): G35 - MULTIPLE SCLEROSIS Status: Chronic Current Visit: No (6) Chronic sinusitis SNOMED Code(s): 43062388 Code(s): J32.9 - CHRONIC SINUSITIS, UNSPECIFIED Status: Chronic Current Visit: No Qualifiers: (7) Constipation SNOMED Code(s): 03746765 Code(s): K59.00 - CONSTIPATION, UNSPECIFIED Status: Chronic Current Visit : No Qualifiers: (8) Hypertension SNOMED Code(s): 48087764 Code(s): I10 - ESSENTIAL (PRIMARY) HYPERTENSION Status: Chronic Current Visit: No Qualifiers: (9) Obesity SNOMED Code(s): 918749942, 852462111 Code(s): E66.9 - OBESITY, UNSPECIFIED Status: Chronic Current Visit: No - Problem List Review Problem List Initiated/Reviewed/Updated: Yes - My Orders Last 24 Hours: My Active Orders 07/20/19 06:26 Patient Status [ADT] Routine Oxygen Therapy [RC] .PRN VTE/DVT Education [RC] .PRN Vital Signs [RC] 06,18 OT Evaluation and Treatment [CONS] Routine PT Evaluation and Treatment [CONS] Routine Anticoagulation Contraindications VTE [AST] Per Unit Routine Resuscitation Status Routine 07/20/19 06:39 Acetaminophen [Tylenol] 650 mg PO Q4H PRN Docusate Sodium/Sennosides [Senna Plus] 2 tab PO BEDTIME PRN 07/20/19 07:55 Sodium Chloride 0.9% [Saline Flush] 10 ml IV ASDIRECTED PRN 07/20/19 08:00 Ascorbic Acid [Vitamin C] 500 mg PO DAILY Cholecalciferol (Vitamin D3) [Vitamin D3] 100 mcg PO DAILY Cyanocobalamin (Vitamin B12) [Vitamin B12] 500 mcg PO BID Fluticasone Propionate [Flonase] 0 gm NASBOTH BID Multivitamins w-Iron/Ca/FA/Min [Thera M Plus] 1 tab PO DAILY Piperacillin/Tazobactam [Zosyn] 4.5 gm Sodium Chloride 0.9% [Normal Saline] 100 ml IV Q8H Sodium Chloride 0.9% [Saline Flush] 10 ml IV Q8HR@0000,0800,1600 lisinopriL [Prinivil] 10 mg PO DAILY 07/20/19 09:06 Heparin Sodium [Heparin Lock Flush 100 Units/ML] 300 unit IVPUSH ASDIRECTED PRN 07/20/19 12:00 Heparin Sodium [Heparin Lock Flush 100 Units/ML] 300 unit IVPUSH Q8H Sodium Chloride 0.9% [Saline Flush] 10 ml IV Q8HR@1200,2000,0400 07/20/19 Breakfast Regular Diet [DIET] 07/22/19 06:00 ALANINE AMINOTRANSFERASE,ALT [CHEM] Q7D C-REACTIVE PROTEIN [CHEM] Q7D CBC WITH AUTO DIFF [HEME] Q7D CREATININE W/GFR [CHEM] Q7D SEDIMENTATION RATE AUTO [HEME] Q7D - Assessment Assessment:: 44 yo male admitted to swing bed for wound cares and IV antibiotics in the setting of a sacral decubitus ulcer complicated by sacral osteomyelitis. Doing well today after suture of arterial bleed in [place] last evening. - Plan Plan:: #1 Sacral Decubitus Ulcer #2 Sacral Osteomyelitis - Continue wound cares as ordered by [place]. - Confirmed with surgery team that it is ok to place the wound vac today in light of events last night. Nursing notified. - Follow-up with surgery is scheduled. - Continue zosyn. - Weekly labs as ordered by ID. - No ID follow-up needed at this time per the hospital team. #3 Neurogenic Bladder #[address] - Suprapubic catheter and ostomy both functioning well with no concerns at this time. #5 MS #6 Chronic Sinusitis #7 Constipation #8 Hypertension #9 Obesity - Continue home medications. - Ocrevus infusion scheduled in [place] later this month. - PT and OT consults. Patient will be admitted to swing bed - anticipate long duration of stay due to need for wound cares and assistance with ADL's without an alternative option at this time. [facility] has declined patient for admission. Code status is DNR/DNI - discussed with patient on admission. Patient does not need VTE prophylaxis given he is at his usual functional baseline.
[2019-07-20] MEDS: Lactobacillus Rhamnosus GG (Probiotic) Cap PO SCH (18:33)
[2019-07-21] MEDS: Heparin Sodium 100 Units/ML 3 ML Syringe IVPUSH SCH ×3 (05:14→20:29)
[2019-07-21] MEDS: Sodium Chloride 0.9% 10 ML Syringe IV SCH ×6 (05:14→23:28)
[2019-07-21] MEDS: Piperacillin/Tazobactam 4.5 GM in Sodium Chloride 0.9% 100 ML IV SCH ×3 (08:21→23:36)
[2019-07-21] MEDS: Lisinopril 10 MG Tab PO SCH (08:43)
[2019-07-21] MEDS: Lactobacillus Rhamnosus GG (Probiotic) Cap PO SCH (08:43)
[2019-07-21] MEDS: Fluticasone Propionate Nasal Spray 16 GM Bottle NASBOTH SCH ×2 (08:43→20:28)
[2019-07-21] MEDS: Multivitamins with Iron/Calcium/Folic Acid/Minerals Tab PO SCH (08:43)
[2019-07-21] MEDS: Cyanocobalamin (Vitamin B12) 250 MCG Tab PO SCH ×2 (08:43→20:29)
[2019-07-21] MEDS: Cholecalciferol (Vitamin D3) 25 MCG Tab PO SCH (08:43)
[2019-07-21] MEDS: Ascorbic Acid 500 MG Tab PO SCH (08:44)
[2019-07-21] MEDS: Sodium Chloride 0.9% 10 ML Syringe IV PRN (23:36)
[2019-07-22] MEDS: Sodium Chloride 0.9% 10 ML Syringe IV SCH ×8 (03:50→23:54)
[2019-07-22] MEDS: Heparin Sodium 100 Units/ML 3 ML Syringe IVPUSH SCH ×5 (03:51→20:35)
[2019-07-22] MEDS: Piperacillin/Tazobactam 4.5 GM in Sodium Chloride 0.9% 100 ML IV SCH ×3 (08:44→23:55)
[2019-07-22] MEDS: Lactobacillus Rhamnosus GG (Probiotic) Cap PO SCH (08:46)
[2019-07-22] MEDS: Cyanocobalamin (Vitamin B12) 250 MCG Tab PO SCH ×2 (08:46→20:31)
[2019-07-22] MEDS: Cholecalciferol (Vitamin D3) 25 MCG Tab PO SCH (08:46)
[2019-07-22] MEDS: Lisinopril 10 MG Tab PO SCH (08:46)
[2019-07-22] MEDS: Fluticasone Propionate Nasal Spray 16 GM Bottle NASBOTH SCH ×2 (08:47→20:44)
[2019-07-22] MEDS: Multivitamins with Iron/Calcium/Folic Acid/Minerals Tab PO SCH (08:47)
[2019-07-22] MEDS: Ascorbic Acid 500 MG Tab PO SCH (08:47)
[2019-07-23] MEDS: Sodium Chloride 0.9% 10 ML Syringe IV SCH ×9 (04:14→20:39)
[2019-07-23] MEDS: Heparin Sodium 100 Units/ML 3 ML Syringe IVPUSH SCH ×7 (04:15→20:40)
[2019-07-23] MEDS: Cyanocobalamin (Vitamin B12) 250 MCG Tab PO SCH ×2 (07:39→20:29)
[2019-07-23] MEDS: Cholecalciferol (Vitamin D3) 25 MCG Tab PO SCH (07:40)
[2019-07-23] MEDS: Multivitamins with Iron/Calcium/Folic Acid/Minerals Tab PO SCH (07:40)
[2019-07-23] MEDS: Lactobacillus Rhamnosus GG (Probiotic) Cap PO SCH (07:40)
[2019-07-23] MEDS: Lisinopril 10 MG Tab PO SCH (07:40)
[2019-07-23] MEDS: Ascorbic Acid 500 MG Tab PO SCH (07:41)
[2019-07-23] MEDS: Fluticasone Propionate Nasal Spray 16 GM Bottle NASBOTH SCH ×2 (07:41→20:29)
[2019-07-23] MEDS: Piperacillin/Tazobactam 4.5 GM in Sodium Chloride 0.9% 100 ML IV SCH ×2 (07:41→15:40)
[2019-07-24] MEDS: Sodium Chloride 0.9% 10 ML Syringe IV SCH ×11 (00:08→23:37)
[2019-07-24] MEDS: Piperacillin/Tazobactam 4.5 GM in Sodium Chloride 0.9% 100 ML IV SCH ×4 (00:09→23:38)
[2019-07-24] MEDS: Heparin Sodium 100 Units/ML 3 ML Syringe IVPUSH SCH ×7 (04:33→19:46)
[2019-07-24] MEDS: Lactobacillus Rhamnosus GG (Probiotic) Cap PO SCH (07:58)
[2019-07-24] MEDS: Lisinopril 10 MG Tab PO SCH (07:58)
[2019-07-24] MEDS: Cholecalciferol (Vitamin D3) 25 MCG Tab PO SCH (07:59)
[2019-07-24] MEDS: Ascorbic Acid 500 MG Tab PO SCH (08:00)
[2019-07-24] MEDS: Multivitamins with Iron/Calcium/Folic Acid/Minerals Tab PO SCH (08:00)
[2019-07-24] MEDS: Cyanocobalamin (Vitamin B12) 250 MCG Tab PO SCH ×2 (08:00→19:48)
[2019-07-24] MEDS: Fluticasone Propionate Nasal Spray 16 GM Bottle NASBOTH SCH ×2 (08:06→19:41)
[2019-07-24] MEDS: Sodium Chloride 0.9% 10 ML Syringe IV PRN (19:42)
[2019-07-24] MEDS: Acetaminophen 325 MG Tab PO PRN (19:46)
[2019-07-25] MEDS: Sodium Chloride 0.9% 10 ML Syringe IV SCH ×9 (03:29→20:03)
[2019-07-25] MEDS: Heparin Sodium 100 Units/ML 3 ML Syringe IVPUSH SCH ×7 (03:29→20:02)
[2019-07-25] MEDS: Heparin Sodium 100 Units/ML 3 ML Syringe IVPUSH PRN (03:29)
[2019-07-25] MEDS: Piperacillin/Tazobactam 4.5 GM in Sodium Chloride 0.9% 100 ML IV SCH ×2 (08:11→16:45)
[2019-07-25] MEDS: Fluticasone Propionate Nasal Spray 16 GM Bottle NASBOTH SCH ×2 (08:12→19:59)
[2019-07-25] MEDS: Lactobacillus Rhamnosus GG (Probiotic) Cap PO SCH (08:13)
[2019-07-25] MEDS: Multivitamins with Iron/Calcium/Folic Acid/Minerals Tab PO SCH (08:13)
[2019-07-25] MEDS: Cyanocobalamin (Vitamin B12) 250 MCG Tab PO SCH ×2 (08:14→20:04)
[2019-07-25] MEDS: Lisinopril 10 MG Tab PO SCH (08:14)
[2019-07-25] MEDS: Ascorbic Acid 500 MG Tab PO SCH (08:14)
[2019-07-25] MEDS: Cholecalciferol (Vitamin D3) 25 MCG Tab PO SCH (08:14)
[2019-07-26] MEDS: Piperacillin/Tazobactam 4.5 GM in Sodium Chloride 0.9% 100 ML IV SCH ×3 (00:48→16:17)
[2019-07-26] MEDS: Sodium Chloride 0.9% 10 ML Syringe IV SCH ×10 (00:48→19:09)
[2019-07-26] MEDS: Heparin Sodium 100 Units/ML 3 ML Syringe IVPUSH SCH ×7 (04:45→19:09)
[2019-07-26] MEDS: Cholecalciferol (Vitamin D3) 25 MCG Tab PO SCH (08:49)
[2019-07-26] MEDS: Ascorbic Acid 500 MG Tab PO SCH (08:49)
[2019-07-26] MEDS: Lactobacillus Rhamnosus GG (Probiotic) Cap PO SCH (08:49)
[2019-07-26] MEDS: Cyanocobalamin (Vitamin B12) 250 MCG Tab PO SCH ×2 (08:49→19:09)
[2019-07-26] MEDS: Multivitamins with Iron/Calcium/Folic Acid/Minerals Tab PO SCH (08:49)
[2019-07-26] MEDS: Lisinopril 10 MG Tab PO SCH (08:51)
[2019-07-26] MEDS: Fluticasone Propionate Nasal Spray 16 GM Bottle NASBOTH SCH ×2 (08:56→19:09)
[2019-07-26] MEDS: Acetaminophen 325 MG Tab PO PRN (16:13)
[2019-07-26] MEDS: Ondansetron 4 MG Tab.DIS PO PRN (16:56)
[2019-07-27] MEDS: Sodium Chloride 0.9% 10 ML Syringe IV SCH ×10 (05:12→23:53)
[2019-07-27] MEDS: Heparin Sodium 100 Units/ML 3 ML Syringe IVPUSH SCH ×7 (05:12→19:58)
[2019-07-27] MEDS: Piperacillin/Tazobactam 4.5 GM in Sodium Chloride 0.9% 100 ML IV SCH ×4 (05:12→23:49)
[2019-07-27] MEDS: Ondansetron 4 MG Tab.DIS PO PRN (07:43)
[2019-07-27] MEDS: Multivitamins with Iron/Calcium/Folic Acid/Minerals Tab PO SCH (07:44)
[2019-07-27] MEDS: Cyanocobalamin (Vitamin B12) 250 MCG Tab PO SCH ×2 (07:45→20:01)
[2019-07-27] MEDS: Lactobacillus Rhamnosus GG (Probiotic) Cap PO SCH (07:45)
[2019-07-27] MEDS: Cholecalciferol (Vitamin D3) 25 MCG Tab PO SCH (07:45)
[2019-07-27] MEDS: Ascorbic Acid 500 MG Tab PO SCH (07:45)
[2019-07-27] MEDS: Fluticasone Propionate Nasal Spray 16 GM Bottle NASBOTH SCH ×2 (07:47→19:58)
[2019-07-27] MEDS: Lisinopril 10 MG Tab PO SCH (07:47)
[2019-07-27] MEDS: Metoclopramide 10 MG Tab PO SCH ×3 (09:52→20:01)
[2019-07-27] MEDS: Acetaminophen 325 MG Tab PO PRN (19:58)
[2019-07-28] MEDS: Acetaminophen 325 MG Tab PO PRN ×2 (03:59→19:46)
[2019-07-28] MEDS: Metoclopramide 10 MG Tab PO SCH ×4 (03:59→21:02)
[2019-07-28] MEDS: Heparin Sodium 100 Units/ML 3 ML Syringe IVPUSH SCH ×7 (04:00→19:43)
[2019-07-28] MEDS: Sodium Chloride 0.9% 10 ML Syringe IV SCH ×9 (04:00→19:43)
[2019-07-28] MEDS: Fluticasone Propionate Nasal Spray 16 GM Bottle NASBOTH SCH ×2 (08:13→19:43)
[2019-07-28] MEDS: Ascorbic Acid 500 MG Tab PO SCH (08:14)
[2019-07-28] MEDS: Cyanocobalamin (Vitamin B12) 250 MCG Tab PO SCH ×2 (08:14→19:42)
[2019-07-28] MEDS: Lactobacillus Rhamnosus GG (Probiotic) Cap PO SCH (08:14)
[2019-07-28] MEDS: Cholecalciferol (Vitamin D3) 25 MCG Tab PO SCH (08:14)
[2019-07-28] MEDS: Multivitamins with Iron/Calcium/Folic Acid/Minerals Tab PO SCH (08:14)
[2019-07-28] MEDS: Lisinopril 10 MG Tab PO SCH (08:15)
[2019-07-28] MEDS: Piperacillin/Tazobactam 4.5 GM in Sodium Chloride 0.9% 100 ML IV SCH ×2 (08:16→16:06)
[2019-07-29] MEDS: Piperacillin/Tazobactam 4.5 GM in Sodium Chloride 0.9% 100 ML IV SCH ×4 (00:17→23:53)
[2019-07-29] MEDS: Sodium Chloride 0.9% 10 ML Syringe IV SCH ×11 (00:17→23:52)
[2019-07-29] MEDS: Metoclopramide 10 MG Tab PO SCH ×3 (03:45→14:46)
[2019-07-29] MEDS: Heparin Sodium 100 Units/ML 3 ML Syringe IVPUSH SCH ×7 (03:47→19:46)
[2019-07-29] MEDS: Multivitamins with Iron/Calcium/Folic Acid/Minerals Tab PO SCH (08:10)
[2019-07-29] MEDS: Ascorbic Acid 500 MG Tab PO SCH (08:10)
[2019-07-29] MEDS: Cholecalciferol (Vitamin D3) 25 MCG Tab PO SCH (08:10)
[2019-07-29] MEDS: Cyanocobalamin (Vitamin B12) 250 MCG Tab PO SCH ×2 (08:10→19:42)
[2019-07-29] MEDS: Lactobacillus Rhamnosus GG (Probiotic) Cap PO SCH (08:17)
[2019-07-29] MEDS: Fluticasone Propionate Nasal Spray 16 GM Bottle NASBOTH SCH ×2 (08:17→19:43)
[2019-07-29] MEDS: Lisinopril 10 MG Tab PO SCH (08:17)
[2019-07-30] MEDS: Sodium Chloride 0.9% 10 ML Syringe IV PRN ×3 (03:32→20:45)
[2019-07-30] MEDS: Heparin Sodium 100 Units/ML 3 ML Syringe IVPUSH SCH ×7 (03:33→20:44)
[2019-07-30] MEDS: Sodium Chloride 0.9% 10 ML Syringe IV SCH ×9 (03:34→20:45)
[2019-07-30] MEDS: Piperacillin/Tazobactam 4.5 GM in Sodium Chloride 0.9% 100 ML IV SCH ×2 (08:46→16:10)
[2019-07-30] MEDS: Cholecalciferol (Vitamin D3) 25 MCG Tab PO SCH (08:47)
[2019-07-30] MEDS: Multivitamins with Iron/Calcium/Folic Acid/Minerals Tab PO SCH (08:47)
[2019-07-30] MEDS: Ascorbic Acid 500 MG Tab PO SCH (08:47)
[2019-07-30] MEDS: Lactobacillus Rhamnosus GG (Probiotic) Cap PO SCH (08:47)
[2019-07-30] MEDS: Cyanocobalamin (Vitamin B12) 250 MCG Tab PO SCH ×2 (08:48→19:50)
[2019-07-30] MEDS: Lisinopril 10 MG Tab PO SCH (08:48)
[2019-07-30] MEDS: Fluticasone Propionate Nasal Spray 16 GM Bottle NASBOTH SCH ×2 (08:50→19:49)
[2019-07-31] MEDS: Piperacillin/Tazobactam 4.5 GM in Sodium Chloride 0.9% 100 ML IV SCH ×3 (00:25→16:36)
[2019-07-31] MEDS: Sodium Chloride 0.9% 10 ML Syringe IV PRN ×2 (00:26→04:36)
[2019-07-31] MEDS: Sodium Chloride 0.9% 10 ML Syringe IV SCH ×10 (00:27→20:33)
[2019-07-31] MEDS: Heparin Sodium 100 Units/ML 3 ML Syringe IVPUSH SCH ×7 (04:36→20:33)
[2019-07-31] MEDS: Cholecalciferol (Vitamin D3) 25 MCG Tab PO SCH (08:06)
[2019-07-31] MEDS: Cyanocobalamin (Vitamin B12) 250 MCG Tab PO SCH ×2 (08:06→20:32)
[2019-07-31] MEDS: Lactobacillus Rhamnosus GG (Probiotic) Cap PO SCH (08:06)
[2019-07-31] MEDS: Lisinopril 10 MG Tab PO SCH (08:06)
[2019-07-31] MEDS: Multivitamins with Iron/Calcium/Folic Acid/Minerals Tab PO SCH (08:07)
[2019-07-31] MEDS: Ascorbic Acid 500 MG Tab PO SCH (08:07)
[2019-07-31] MEDS: Fluticasone Propionate Nasal Spray 16 GM Bottle NASBOTH SCH ×2 (08:11→20:33)
[2019-07-31] MEDS: Acetaminophen 325 MG Tab PO PRN (20:52)
[2019-08-01] MEDS: Piperacillin/Tazobactam 4.5 GM in Sodium Chloride 0.9% 100 ML IV SCH ×3 (01:07→15:53)
[2019-08-01] MEDS: Sodium Chloride 0.9% 10 ML Syringe IV SCH ×10 (01:08→20:00)
[2019-08-01] MEDS: Heparin Sodium 100 Units/ML 3 ML Syringe IVPUSH SCH ×7 (05:24→20:00)
[2019-08-01] MEDS: Cholecalciferol (Vitamin D3) 25 MCG Tab PO SCH (08:07)
[2019-08-01] MEDS: Cyanocobalamin (Vitamin B12) 250 MCG Tab PO SCH ×2 (08:07→20:00)
[2019-08-01] MEDS: Multivitamins with Iron/Calcium/Folic Acid/Minerals Tab PO SCH (08:07)
[2019-08-01] MEDS: Lactobacillus Rhamnosus GG (Probiotic) Cap PO SCH (08:07)
[2019-08-01] MEDS: Ascorbic Acid 500 MG Tab PO SCH (08:07)
[2019-08-01] MEDS: Lisinopril 10 MG Tab PO SCH (08:07)
[2019-08-01] MEDS: Fluticasone Propionate Nasal Spray 16 GM Bottle NASBOTH SCH ×2 (08:08→20:01)
[2019-08-01] MEDS: Acetaminophen 325 MG Tab PO PRN (20:00)
[2019-08-02] MEDS: Piperacillin/Tazobactam 4.5 GM in Sodium Chloride 0.9% 100 ML IV SCH ×4 (00:19→23:52)
[2019-08-02] MEDS: Sodium Chloride 0.9% 10 ML Syringe IV SCH ×11 (00:26→23:51)
[2019-08-02] MEDS: Heparin Sodium 100 Units/ML 3 ML Syringe IVPUSH SCH ×7 (04:30→20:47)
[2019-08-02] MEDS: Cholecalciferol (Vitamin D3) 25 MCG Tab PO SCH (07:55)
[2019-08-02] MEDS: Fluticasone Propionate Nasal Spray 16 GM Bottle NASBOTH SCH ×2 (07:55→20:39)
[2019-08-02] MEDS: Lactobacillus Rhamnosus GG (Probiotic) Cap PO SCH (07:55)
[2019-08-02] MEDS: Ascorbic Acid 500 MG Tab PO SCH (07:56)
[2019-08-02] MEDS: Multivitamins with Iron/Calcium/Folic Acid/Minerals Tab PO SCH (07:56)
[2019-08-02] MEDS: Cyanocobalamin (Vitamin B12) 250 MCG Tab PO SCH ×2 (07:56→20:39)
[2019-08-02] MEDS: Lisinopril 10 MG Tab PO SCH (07:56)
[2019-08-02] MEDS: Acetaminophen 325 MG Tab PO PRN (20:40)
[2019-08-02] MEDS: Sodium Chloride 0.9% 10 ML Syringe IV PRN (20:46)
[2019-08-02] MEDS: Heparin Sodium 100 Units/ML 3 ML Syringe IVPUSH PRN (20:46)
[2019-08-03] MEDS: Sodium Chloride 0.9% 10 ML Syringe IV SCH ×10 (03:40→23:54)
[2019-08-03] MEDS: Heparin Sodium 100 Units/ML 3 ML Syringe IVPUSH SCH ×7 (03:40→20:53)
[2019-08-03] MEDS: Cyanocobalamin (Vitamin B12) 250 MCG Tab PO SCH ×2 (07:54→20:50)
[2019-08-03] MEDS: Piperacillin/Tazobactam 4.5 GM in Sodium Chloride 0.9% 100 ML IV SCH ×3 (07:54→23:55)
[2019-08-03] MEDS: Multivitamins with Iron/Calcium/Folic Acid/Minerals Tab PO SCH (07:54)
[2019-08-03] MEDS: Lactobacillus Rhamnosus GG (Probiotic) Cap PO SCH (07:54)
[2019-08-03] MEDS: Lisinopril 10 MG Tab PO SCH (07:55)
[2019-08-03] MEDS: Cholecalciferol (Vitamin D3) 25 MCG Tab PO SCH (07:55)
[2019-08-03] MEDS: Ascorbic Acid 500 MG Tab PO SCH (07:55)
[2019-08-03] MEDS: Fluticasone Propionate Nasal Spray 16 GM Bottle NASBOTH SCH ×2 (07:57→20:50)
[2019-08-03] MEDS: Acetaminophen 325 MG Tab PO PRN (21:01)
[2019-08-04] MEDS: Heparin Sodium 100 Units/ML 3 ML Syringe IVPUSH SCH ×7 (03:40→20:28)
[2019-08-04] MEDS: Sodium Chloride 0.9% 10 ML Syringe IV SCH ×9 (03:40→20:27)
[2019-08-04] MEDS: Fluticasone Propionate Nasal Spray 16 GM Bottle NASBOTH SCH ×2 (08:21→20:06)
[2019-08-04] MEDS: Piperacillin/Tazobactam 4.5 GM in Sodium Chloride 0.9% 100 ML IV SCH ×2 (08:21→16:24)
[2019-08-04] MEDS: Lactobacillus Rhamnosus GG (Probiotic) Cap PO SCH (08:22)
[2019-08-04] MEDS: Cholecalciferol (Vitamin D3) 25 MCG Tab PO SCH (08:22)
[2019-08-04] MEDS: Multivitamins with Iron/Calcium/Folic Acid/Minerals Tab PO SCH (08:22)
[2019-08-04] MEDS: Cyanocobalamin (Vitamin B12) 250 MCG Tab PO SCH ×2 (08:22→20:07)
[2019-08-04] MEDS: Lisinopril 10 MG Tab PO SCH (08:23)
[2019-08-04] MEDS: Ascorbic Acid 500 MG Tab PO SCH (08:23)
[2019-08-04] MEDS: Acetaminophen 325 MG Tab PO PRN ×2 (08:24→20:07)
[2019-08-05] MEDS: Piperacillin/Tazobactam 4.5 GM in Sodium Chloride 0.9% 100 ML IV SCH ×3 (00:07→16:11)
[2019-08-05] MEDS: Sodium Chloride 0.9% 10 ML Syringe IV SCH ×10 (00:08→20:27)
[2019-08-05] MEDS: Heparin Sodium 100 Units/ML 3 ML Syringe IVPUSH SCH ×7 (04:29→20:27)
[2019-08-05] MEDS: Sodium Chloride 0.9% 10 ML Syringe IV PRN (06:47)
[2019-08-05] MEDS: Heparin Sodium 100 Units/ML 3 ML Syringe IVPUSH PRN (06:48)
[2019-08-05] MEDS: Cholecalciferol (Vitamin D3) 25 MCG Tab PO SCH (07:56)
[2019-08-05] MEDS: Multivitamins with Iron/Calcium/Folic Acid/Minerals Tab PO SCH (07:56)
[2019-08-05] MEDS: Cyanocobalamin (Vitamin B12) 250 MCG Tab PO SCH ×2 (07:57→20:27)
[2019-08-05] MEDS: Ascorbic Acid 500 MG Tab PO SCH (07:57)
[2019-08-05] MEDS: Lactobacillus Rhamnosus GG (Probiotic) Cap PO SCH (07:57)
[2019-08-05] MEDS: Lisinopril 10 MG Tab PO SCH (07:57)
[2019-08-05] MEDS: Fluticasone Propionate Nasal Spray 16 GM Bottle NASBOTH SCH ×2 (07:57→20:26)
[2019-08-05] MEDS: Acetaminophen 325 MG Tab PO PRN (20:27)
[2019-08-06] MEDS: Piperacillin/Tazobactam 4.5 GM in Sodium Chloride 0.9% 100 ML IV SCH ×3 (00:23→16:12)
[2019-08-06] MEDS: Sodium Chloride 0.9% 10 ML Syringe IV SCH ×10 (00:23→20:05)
[2019-08-06] MEDS: Heparin Sodium 100 Units/ML 3 ML Syringe IVPUSH SCH ×7 (04:31→20:06)
[2019-08-06] MEDS: Multivitamins with Iron/Calcium/Folic Acid/Minerals Tab PO SCH (07:54)
[2019-08-06] MEDS: Lisinopril 10 MG Tab PO SCH (07:54)
[2019-08-06] MEDS: Ascorbic Acid 500 MG Tab PO SCH (07:54)
[2019-08-06] MEDS: Cyanocobalamin (Vitamin B12) 250 MCG Tab PO SCH ×2 (07:54→20:04)
[2019-08-06] MEDS: Lactobacillus Rhamnosus GG (Probiotic) Cap PO SCH (07:54)
[2019-08-06] MEDS: Fluticasone Propionate Nasal Spray 16 GM Bottle NASBOTH SCH ×2 (07:54→20:05)
[2019-08-06] MEDS: Cholecalciferol (Vitamin D3) 25 MCG Tab PO SCH (07:54)
[2019-08-06] MEDS: Acetaminophen 325 MG Tab PO PRN (16:14)
[2019-08-07] MEDS: Piperacillin/Tazobactam 4.5 GM in Sodium Chloride 0.9% 100 ML IV SCH ×4 (00:11→23:51)
[2019-08-07] MEDS: Sodium Chloride 0.9% 10 ML Syringe IV SCH ×12 (00:12→23:53)
[2019-08-07] MEDS: Heparin Sodium 100 Units/ML 3 ML Syringe IVPUSH SCH ×7 (04:07→20:00)
[2019-08-07] MEDS: Lactobacillus Rhamnosus GG (Probiotic) Cap PO SCH (07:48)
[2019-08-07] MEDS: Multivitamins with Iron/Calcium/Folic Acid/Minerals Tab PO SCH (07:48)
[2019-08-07] MEDS: Cholecalciferol (Vitamin D3) 25 MCG Tab PO SCH (07:48)
[2019-08-07] MEDS: Cyanocobalamin (Vitamin B12) 250 MCG Tab PO SCH ×2 (07:48→19:57)
[2019-08-07] MEDS: Lisinopril 10 MG Tab PO SCH (07:49)
[2019-08-07] MEDS: Ascorbic Acid 500 MG Tab PO SCH (07:49)
[2019-08-07] MEDS: Fluticasone Propionate Nasal Spray 16 GM Bottle NASBOTH SCH ×2 (07:50→19:58)
[2019-08-07] MEDS: Acetaminophen 325 MG Tab PO PRN (19:57)
[2019-08-07] MEDS: Sodium Chloride 0.9% 10 ML Syringe IV PRN (23:51)
[2019-08-08] MEDS: Sodium Chloride 0.9% 10 ML Syringe IV SCH ×10 (03:49→23:56)
[2019-08-08] MEDS: Heparin Sodium 100 Units/ML 3 ML Syringe IVPUSH SCH ×7 (03:50→20:55)
[2019-08-08] MEDS: Piperacillin/Tazobactam 4.5 GM in Sodium Chloride 0.9% 100 ML IV SCH ×3 (07:34→23:53)
[2019-08-08] MEDS: Multivitamins with Iron/Calcium/Folic Acid/Minerals Tab PO SCH (07:35)
[2019-08-08] MEDS: Cyanocobalamin (Vitamin B12) 250 MCG Tab PO SCH ×2 (07:35→20:50)
[2019-08-08] MEDS: Lactobacillus Rhamnosus GG (Probiotic) Cap PO SCH (07:36)
[2019-08-08] MEDS: Cholecalciferol (Vitamin D3) 25 MCG Tab PO SCH (07:36)
[2019-08-08] MEDS: Fluticasone Propionate Nasal Spray 16 GM Bottle NASBOTH SCH ×2 (07:36→20:59)
[2019-08-08] MEDS: Ascorbic Acid 500 MG Tab PO SCH (07:36)
[2019-08-08] MEDS: Lisinopril 10 MG Tab PO SCH (07:36)
[2019-08-08] MEDS: Acetaminophen 325 MG Tab PO PRN ×2 (13:48→20:50)
--- NOTE | 2019-08-08 19:13 | PCM.SN.2 ---
- Free Text/Narrative Note: S: Contacted by nursing that his suture holding his suprapubic catheter in place fell out today. They did attempt to secure this without a suture but did not feel it was adequate. Patient states he was lying in bed when he suddenly felt something wet. He contacted the nurse who then noted that the suture had fallen out and his catheter had come part of the way out. This is still draining urine well. O: Vitals reviewed. Suprapubic site is clean and without edema. Suture around suprapubic catheter but this is not attached to his skin. A/P: #[address] - Paused to confirm rationale for procedure, confirm allergies, and verify medications. Assisted by Kristina Webb RN. - Skin around the catheter site cleansed with chloraprep. - 0.5 mL of 1% lidocaine without epinephrine infiltrated for anesthesia. - 1 suture using 3-0 nylon placed with 4 wraps around the catheter. - Catheter secure with this. - Patient tolerated well. Bleeding minimal and controlled with pressure. - Keep appointment with IR as scheduled 08/26.
[2019-08-08] MEDS: Sodium Chloride 0.9% 10 ML Syringe IV PRN (23:53)
[2019-08-09] MEDS: Heparin Sodium 100 Units/ML 3 ML Syringe IVPUSH SCH ×7 (04:08→20:27)
[2019-08-09] MEDS: Sodium Chloride 0.9% 10 ML Syringe IV SCH ×9 (04:08→20:41)
[2019-08-09] MEDS: Piperacillin/Tazobactam 4.5 GM in Sodium Chloride 0.9% 100 ML IV SCH ×3 (08:07→23:31)
[2019-08-09] MEDS: Fluticasone Propionate Nasal Spray 16 GM Bottle NASBOTH SCH ×2 (08:21→20:26)
[2019-08-09] MEDS: Ascorbic Acid 500 MG Tab PO SCH (08:23)
[2019-08-09] MEDS: Lactobacillus Rhamnosus GG (Probiotic) Cap PO SCH (08:23)
[2019-08-09] MEDS: Cholecalciferol (Vitamin D3) 25 MCG Tab PO SCH (08:23)
[2019-08-09] MEDS: Lisinopril 10 MG Tab PO SCH (08:23)
[2019-08-09] MEDS: Multivitamins with Iron/Calcium/Folic Acid/Minerals Tab PO SCH (08:24)
[2019-08-09] MEDS: Cyanocobalamin (Vitamin B12) 250 MCG Tab PO SCH ×2 (08:24→20:25)
[2019-08-09] MEDS: Acetaminophen 325 MG Tab PO PRN ×2 (12:38→20:29)
[2019-08-09] MEDS: Sodium Chloride 0.9% 10 ML Syringe IV PRN (23:43)
[2019-08-10] MEDS: Sodium Chloride 0.9% 10 ML Syringe IV SCH ×11 (02:52→23:36)
[2019-08-10] MEDS: Heparin Sodium 100 Units/ML 3 ML Syringe IVPUSH SCH ×7 (04:16→20:22)
[2019-08-10] MEDS: Piperacillin/Tazobactam 4.5 GM in Sodium Chloride 0.9% 100 ML IV SCH ×3 (08:24→23:35)
[2019-08-10] MEDS: Cholecalciferol (Vitamin D3) 25 MCG Tab PO SCH (08:25)
[2019-08-10] MEDS: Acetaminophen 325 MG Tab PO PRN ×2 (08:26→20:23)
[2019-08-10] MEDS: Multivitamins with Iron/Calcium/Folic Acid/Minerals Tab PO SCH (08:26)
[2019-08-10] MEDS: Lactobacillus Rhamnosus GG (Probiotic) Cap PO SCH (08:26)
[2019-08-10] MEDS: Cyanocobalamin (Vitamin B12) 250 MCG Tab PO SCH ×2 (08:27→20:22)
[2019-08-10] MEDS: Ascorbic Acid 500 MG Tab PO SCH (08:29)
[2019-08-10] MEDS: Lisinopril 10 MG Tab PO SCH (08:29)
[2019-08-10] MEDS: Fluticasone Propionate Nasal Spray 16 GM Bottle NASBOTH SCH ×2 (08:30→20:20)
[2019-08-11] MEDS: Sodium Chloride 0.9% 10 ML Syringe IV SCH ×9 (03:55→20:16)
[2019-08-11] MEDS: Heparin Sodium 100 Units/ML 3 ML Syringe IVPUSH SCH ×7 (03:55→20:15)
[2019-08-11] MEDS: Piperacillin/Tazobactam 4.5 GM in Sodium Chloride 0.9% 100 ML IV SCH ×2 (08:52→15:45)
[2019-08-11] MEDS: Fluticasone Propionate Nasal Spray 16 GM Bottle NASBOTH SCH ×2 (08:53→20:14)
[2019-08-11] MEDS: Lactobacillus Rhamnosus GG (Probiotic) Cap PO SCH (09:01)
[2019-08-11] MEDS: Acetaminophen 325 MG Tab PO PRN ×2 (09:01→20:12)
[2019-08-11] MEDS: Ascorbic Acid 500 MG Tab PO SCH (09:01)
[2019-08-11] MEDS: Multivitamins with Iron/Calcium/Folic Acid/Minerals Tab PO SCH (09:02)
[2019-08-11] MEDS: Cholecalciferol (Vitamin D3) 25 MCG Tab PO SCH (09:02)
[2019-08-11] MEDS: Cyanocobalamin (Vitamin B12) 250 MCG Tab PO SCH ×2 (09:02→20:13)
[2019-08-11] MEDS: Lisinopril 10 MG Tab PO SCH (09:02)
[2019-08-12] MEDS: Piperacillin/Tazobactam 4.5 GM in Sodium Chloride 0.9% 100 ML IV SCH ×3 (00:02→15:55)
[2019-08-12] MEDS: Sodium Chloride 0.9% 10 ML Syringe IV SCH ×10 (00:03→20:28)
[2019-08-12] MEDS: Heparin Sodium 100 Units/ML 3 ML Syringe IVPUSH SCH ×8 (04:10→20:30)
[2019-08-12] MEDS: Sodium Chloride 0.9% 10 ML Syringe IV PRN (06:29)
[2019-08-12] MEDS: Fluticasone Propionate Nasal Spray 16 GM Bottle NASBOTH SCH ×2 (07:56→20:27)
[2019-08-12] MEDS: Lisinopril 10 MG Tab PO SCH (08:07)
[2019-08-12] MEDS: Cyanocobalamin (Vitamin B12) 250 MCG Tab PO SCH ×2 (08:08→20:27)
[2019-08-12] MEDS: Lactobacillus Rhamnosus GG (Probiotic) Cap PO SCH (08:08)
[2019-08-12] MEDS: Multivitamins with Iron/Calcium/Folic Acid/Minerals Tab PO SCH (08:08)
[2019-08-12] MEDS: Cholecalciferol (Vitamin D3) 25 MCG Tab PO SCH (08:08)
[2019-08-12] MEDS: Ascorbic Acid 500 MG Tab PO SCH (08:08)
[2019-08-12] MEDS: Acetaminophen 325 MG Tab PO PRN ×2 (08:25→20:39)
[2019-08-13] MEDS: Piperacillin/Tazobactam 4.5 GM in Sodium Chloride 0.9% 100 ML IV SCH ×3 (00:36→15:54)
[2019-08-13] MEDS: Sodium Chloride 0.9% 10 ML Syringe IV SCH ×10 (00:36→20:34)
[2019-08-13] MEDS: Heparin Sodium 100 Units/ML 3 ML Syringe IVPUSH SCH ×7 (04:35→20:34)
[2019-08-13] MEDS: Cholecalciferol (Vitamin D3) 25 MCG Tab PO SCH (07:52)
[2019-08-13] MEDS: Lisinopril 10 MG Tab PO SCH (07:52)
[2019-08-13] MEDS: Ascorbic Acid 500 MG Tab PO SCH (07:52)
[2019-08-13] MEDS: Cyanocobalamin (Vitamin B12) 250 MCG Tab PO SCH ×2 (07:52→20:24)
[2019-08-13] MEDS: Lactobacillus Rhamnosus GG (Probiotic) Cap PO SCH (07:52)
[2019-08-13] MEDS: Multivitamins with Iron/Calcium/Folic Acid/Minerals Tab PO SCH (07:52)
[2019-08-13] MEDS: Fluticasone Propionate Nasal Spray 16 GM Bottle NASBOTH SCH ×2 (07:53→20:23)
[2019-08-13] MEDS: Sodium Chloride 0.9% 10 ML Syringe IV PRN (12:27)
[2019-08-13] MEDS: Acetaminophen 325 MG Tab PO PRN (20:25)
[2019-08-14] MEDS: Sodium Chloride 0.9% 10 ML Syringe IV SCH ×10 (00:43→20:57)
[2019-08-14] MEDS: Piperacillin/Tazobactam 4.5 GM in Sodium Chloride 0.9% 100 ML IV SCH ×3 (00:43→17:07)
[2019-08-14] MEDS: Heparin Sodium 100 Units/ML 3 ML Syringe IVPUSH SCH ×7 (05:00→21:02)
[2019-08-14] MEDS: Acetaminophen 325 MG Tab PO PRN ×3 (05:09→20:53)
[2019-08-14] MEDS: Fluticasone Propionate Nasal Spray 16 GM Bottle NASBOTH SCH ×2 (08:32→20:52)
[2019-08-14] MEDS: Lisinopril 10 MG Tab PO SCH (08:35)
[2019-08-14] MEDS: Ascorbic Acid 500 MG Tab PO SCH (08:35)
[2019-08-14] MEDS: Lactobacillus Rhamnosus GG (Probiotic) Cap PO SCH (08:35)
[2019-08-14] MEDS: Cholecalciferol (Vitamin D3) 25 MCG Tab PO SCH (08:35)
[2019-08-14] MEDS: Multivitamins with Iron/Calcium/Folic Acid/Minerals Tab PO SCH (08:36)
[2019-08-14] MEDS: Cyanocobalamin (Vitamin B12) 250 MCG Tab PO SCH ×2 (08:36→20:52)
--- NOTE | 2019-08-14 14:35 | PCM.PN ---
- General Info Date of Service: 08/14/19 Subjective Update: 44 yo male admitted to swing bed for wound cares in the setting of [facility] needs for ADL assistance. Nursing and case management have noted concerns over the past 2-3 days especially but even longer term over the past few weeks in relation to his mood. He has seemed to be less upbeat than his usual self. He had commented last night that he should just go jump off a bridge (he denies saying that to me today). He has also commented about things "not being worth it." The patient states that he is frustrated about his infusion being cancelled. He was supposed to get this today and can tell in his left arm that he is due for this. He is frustrated that the wound is impairing his ability to get the infusion given everything else it has already impacted. He does not feel he is depressed outside of this frustration. He states he is sleeping well apart from needing to have his position changed every 2 hours. His appetite has been good. He denies any thoughts of self harm or suicide. He does note that he has not heard from his family much since the lockdown on visitors has been in place. As far as the wound, this is not bothering him. He denies any pain. He states his ostomy and suprapubic catheter are working well. A new stitch had to be placed for the suprapubic catheter last week but this has held so far. ROS otherwise negative. - Review of Systems General: Reports: No Symptoms HEENT: Reports: No Symptoms Pulmonary: Reports: No Symptoms Cardiovascular: Reports: No Symptoms Gastrointestinal: Reports: No Symptoms Genitourinary: Reports: No Symptoms Musculoskeletal: Reports: No Symptoms Skin: Reports: No Symptoms Neurological: Reports: No Symptoms - Patient Data Vitals - Most Recent: Last Vital Signs Temp 36.8 C 08/14/19 06:00 Pulse 72 08/14/19 06:00 Resp 17 08/14/19 06:00 BP 102/60 08/14/19 08:35 Pulse Ox 98 08/14/19 06:00 Weight - Most Recent: 142.337 kg I&O - Last 24 Hours: Intake & Output 08/13/19 08/14/19 08/14/19 22:59 06:59 14:59 Intake Total 220 300 480 Output Total 1000 700 Balance -780 -400 480 Med Orders - Current: Current Medications Acetaminophen (Tylenol) 650 mg PO Q4H PRN PRN Reason: Pain (mild 1-3) Last Admin: 08/14/19 08:33 Dose: 650 mg Ascorbic Acid (Vitamin C) 500 mg PO DAILY [facility] Last Admin: 08/14/19 08:35 Dose: 500 mg Cholecalciferol (Vitamin D3) 100 mcg PO DAILY [facility] Last Admin: 08/14/19 08:35 Dose: 100 mcg Cyanocobalamin (Vitamin B12) 500 mcg PO BID [facility] Last Admin: 08/14/19 08:36 Dose: 500 mcg Fluticasone Propionate (Flonase) 0 gm NASBOTH BID [facility] Last Admin: 08/14/19 08:32 Dose: 1 spray Heparin Sodium (Porcine) (Heparin Lock Flush 100 Units/Ml) 300 unit IVPUSH ASDIRECTED PRN PRN Reason: Keep Vein Open Last Admin: 08/05/19 06:48 Dose: 300 unit Heparin Sodium (Porcine) (Heparin Lock Flush 100 Units/Ml) 300 unit IVPUSH Q12H [facility] Last Admin: 08/14/19 08:29 Dose: 300 unit Heparin Sodium (Porcine) (Heparin Lock Flush 100 Units/Ml) 300 unit IVPUSH Q12H [facility] Last Admin: 08/14/19 08:29 Dose: 300 unit Heparin Sodium (Porcine) (Heparin Lock Flush 100 Units/Ml) 300 unit IVPUSH Q8H [facility] Last Admin: 08/14/19 12:38 Dose: 300 unit Piperacillin Sod/Tazobactam (Sod 4.5 gm/ Sodium Chloride) 100 mls @ 25 mls/hr IV Q8H [facility] Stop: 08/28/19 17:00 Last Admin: 08/14/19 08:21 Dose: 25 mls/hr Lactobacillus Rhamnosus (Culturelle) 1 cap PO DAILY [facility] Last Admin: 08/14/19 08:35 Dose: 1 cap Lisinopril (Prinivil) 10 mg PO DAILY [facility] Last Admin: 08/14/19 08:35 Dose: 10 mg Multivitamins/Minerals (Thera M Plus) 1 tab PO DAILY [facility] Last Admin: 08/14/19 08:36 Dose: 1 tab Ondansetron HCl (Zofran Odt) 4 mg PO Q6H PRN PRN Reason: Nausea/Vomiting Last Admin: 07/27/19 07:43 Dose: 4 mg Senna/Docusate Sodium (Senna Plus) 2 tab PO BEDTIME PRN PRN Reason: Constipation Last Admin: 08/13/19 20:24 Dose: 2 tab Sodium Chloride (Saline Flush) 10 ml IV ASDIRECTED PRN PRN Reason: Keep Vein Open Last Admin: 08/13/19 12:27 Dose: 10 ml Sodium Chloride (Saline Flush) 10 ml IV Q12H [facility] Last Admin: 08/14/19 08:28 Dose: 10 ml Sodium Chloride (Saline Flush) 10 ml IV Q12H [facility] Last Admin: 08/14/19 08:28 Dose: 10 ml Sodium Chloride (Saline Flush) 10 ml IV Q4H [facility] Last Admin: 08/14/19 12:38 Dose: 10 ml Discontinued Medications Heparin Sodium (Porcine) (Heparin Lock Flush 100 Units/Ml) 300 unit IVPUSH Q8H [facility] Last Admin: 07/22/19 13:01 Dose: 300 unit Piperacillin Sod/Tazobactam (Sod 4.5 gm/ Sodium Chloride) 100 mls @ 25 mls/hr IV Q8H [facility] Last Admin: 07/20/19 08:20 Dose: Not Given Lidocaine HCl (Xylocaine-Mpf 1%) 5 ml INJECT ONETIME ONE Stop: 08/08/19 18:08 Last Admin: 08/08/19 18:20 Dose: Not Given Lidocaine HCl (Xylocaine-Mpf 1%) 5 ml INJECT STAT ONE Stop: 08/08/19 18:08 Last Admin: 08/08/19 19:05 Dose: 5 ml Metoclopramide HCl (Reglan) 10 mg PO Q6H [facility] Last Admin: 07/29/19 14:46 Dose: Not Given Sodium Chloride (Saline Flush) 10 ml IV Q8HR@0000,0800,1600 [facility] Last Admin: 07/22/19 08:48 Dose: 10 ml Sodium Chloride (Saline Flush) 10 ml IV Q8HR@1200,2000,0400 [facility] Last Admin: 07/22/19 13:01 Dose: 10 ml - Exam General: Alert, Oriented, Cooperative HEENT: Mucous Membr. Moist/[place] Neck: Supple, Trachea Midline, No Thyromegaly. No: Lymphadenopathy Lungs: Clear to Auscultation, Normal Respiratory Effort Cardiovascular: Regular Rate, Regular Rhythm, No Murmurs GI/Abdominal Exam: Normal Bowel Sounds, Soft, No Organomegaly, No Distention, No Mass Extremities: Non-Tender, No Pedal Edema, Normal Capillary Refill Peripheral Pulses: 2+: Radial (L), Radial (R) Skin: Warm, Dry Sepsis Event Note - Evaluation Sepsis Screening Result: No Definite Risk - Focused Exam Vital Signs: Vital Signs Temp Pulse Resp BP BP Pulse Ox 08/14/19 08:35 102/60 08/14/19 06:00 36.8 C 72 17 102/61 98 Date Exam was Performed: 08/14/19 Time Exam was Performed: 14:45 - Problem List & Annotations (1) Sacral decubitus ulcer SNOMED Code(s): 345892061 Code(s): L89.159 - PRESSURE ULCER OF SACRAL REGION, UNSPECIFIED STAGE Status: Acute Current Visit: No Qualifiers: Pressure injury stage: unspecified pressure injury stage Qualified Code(s) : L89.159 - Pressure ulcer of sacral region, unspecified stage (2) Sacral osteomyelitis SNOMED Code(s): 232782222, 193065447 Code(s): M46.28 - OSTEOMYELITIS OF VERTEBRA, SACRAL AND SACROCOCCYGEAL REGION Status: Acute Current Visit: No (3) Adjustment disorder SNOMED Code(s): 77331183 Code(s): F43.20 - ADJUSTMENT DISORDER, UNSPECIFIED Status: Acute Current Visit: Yes Qualifiers: Adjustment disorder type: with depressed mood Qualified Code(s): F43.21 - Adjustment disorder with depressed mood (4) Neurogenic bladder SNOMED Code(s): 505220001 Code(s): N31.9 - NEUROMUSCULAR DYSFUNCTION OF BLADDER, UNSPECIFIED Status: Chronic Current Visit: No (5) History of creation of ostomy SNOMED Code(s): 859754511 Code(s): Z93.9 - ARTIFICIAL OPENING STATUS, UNSPECIFIED Status: Acute Current Visit: No (6) Multiple sclerosis SNOMED Code(s): 84609796 Code(s): G35 - MULTIPLE SCLEROSIS Status: Chronic Current Visit: No (7) Chronic sinusitis SNOMED Code(s): 13224577 Code(s): J32.9 - CHRONIC SINUSITIS, UNSPECIFIED Status: Chronic Current Visit: No (8) Constipation SNOMED Code(s): 69254629 Code(s): K59.00 - CONSTIPATION, UNSPECIFIED Status: Chronic Current Visit : No (9) Hypertension SNOMED Code(s): 70753115 Code(s): I10 - ESSENTIAL (PRIMARY) HYPERTENSION Status: Chronic Current Visit: No (10) Obesity SNOMED Code(s): 815145799, 156546114 Code(s): E66.9 - OBESITY, UNSPECIFIED Status: Chronic Current Visit: No - Problem List Review Problem List Initiated/Reviewed/Updated: Yes - My Orders Last 24 Hours: My Active Orders 08/13/19 18:59 OT Evaluation and Treatment [CONS] Routine 08/19/19 05:00 ALANINE AMINOTRANSFERASE,ALT [CHEM] Q7D CBC WITH MANUAL DIFF [HEME] Q7D CREATININE W/GFR [CHEM] Q7D CRP [C-REACTIVE PROTEIN] [CHEM] Q7D SEDIMENTATION RATE AUTO [HEME] Q7D 08/26/19 05:00 ALANINE AMINOTRANSFERASE,ALT [CHEM] Q7D CBC WITH MANUAL DIFF [HEME] Q7D CREATININE W/GFR [CHEM] Q7D CRP [C-REACTIVE PROTEIN] [CHEM] Q7D SEDIMENTATION RATE AUTO [HEME] Q7D 09/02/19 05:00 ALANINE AMINOTRANSFERASE,ALT [CHEM] Q7D CBC WITH MANUAL DIFF [HEME] Q7D CREATININE W/GFR [CHEM] Q7D CRP [C-REACTIVE PROTEIN] [CHEM] Q7D SEDIMENTATION RATE AUTO [HEME] Q7D - Assessment Assessment:: 44 yo male admitted to swing bed for wound cares and IV antibiotics in the setting of a sacral decubitus ulcer complicated by sacral osteomyelitis. Wound is healing well. Hospitalization now complicated by mood changes. - Plan Plan:: #1 Sacral Decubitus Ulcer #2 Sacral Osteomyelitis - Continue wound cares as ordered by [facility]. - Follow-up with surgery and wound clinic as scheduled. - Continue zosyn. - Weekly labs as ordered by ID. - ID follow-up also scheduled. #3 Adjustment Disorder - Patient is denying any mood changes today and is not really interested in help at this time. - Will continue to monitor and offer medication management if he seems more open to this discussion at a later date. - Nursing also planning to be more intentional about activities for him and possibly even getting him outside on a regular basis. #4 Neurogenic Bladder #[address] - Suprapubic catheter and ostomy both functioning well with no concerns at this time. #6 MS #7 Chronic Sinusitis #8 Constipation #9 Hypertension #10 Obesity - Continue home medications. - Patient has been offered solu-medrol given delay in ocrevus infusion but declines for now. He will let me know if he changes his mind. - PT and OT consults. Patient will be admitted to swing bed - anticipate long duration of stay due to need for wound cares and assistance with ADL's without an alternative option at this time. Code status is DNR/DNI - discussed with patient on admission. Patient does not need VTE prophylaxis given he is at his usual functional baseline.
[2019-08-15] MEDS: Sodium Chloride 0.9% 10 ML Syringe IV SCH ×10 (00:42→21:19)
[2019-08-15] MEDS: Piperacillin/Tazobactam 4.5 GM in Sodium Chloride 0.9% 100 ML IV SCH ×3 (00:42→16:37)
[2019-08-15] MEDS: Acetaminophen 325 MG Tab PO PRN ×2 (04:06→20:31)
[2019-08-15] MEDS: Heparin Sodium 100 Units/ML 3 ML Syringe IVPUSH SCH ×7 (04:12→21:18)
[2019-08-15] MEDS: Cholecalciferol (Vitamin D3) 25 MCG Tab PO SCH (07:48)
[2019-08-15] MEDS: Lactobacillus Rhamnosus GG (Probiotic) Cap PO SCH (07:48)
[2019-08-15] MEDS: Multivitamins with Iron/Calcium/Folic Acid/Minerals Tab PO SCH (07:49)
[2019-08-15] MEDS: Cyanocobalamin (Vitamin B12) 250 MCG Tab PO SCH ×2 (07:50→20:34)
[2019-08-15] MEDS: Ascorbic Acid 500 MG Tab PO SCH (07:50)
[2019-08-15] MEDS: Lisinopril 10 MG Tab PO SCH (07:50)
[2019-08-15] MEDS: Fluticasone Propionate Nasal Spray 16 GM Bottle NASBOTH SCH ×2 (07:51→20:28)
--- NOTE | 2019-08-15 14:09 | CR ---
[id number] RAD/RAD Shoulder Right 2V Min EXAM: 2 VIEWS RIGHT SHOULDER. INDICATION: SHOULDER PAIN AFTER FALL. COMPARISON: None. DISCUSSION: Evaluation is limited secondary to positioning/technique. No definite acute fracture or dislocation. Previously identified distal left clavicular fracture is not well appreciated on this study. Right-sided PICC line. IMPRESSION: 1. As above. Rigo Rodriguez DO 08/15/19 1402 Thank you for allowing us to participate in the care of your patient.
[2019-08-16] MEDS: Piperacillin/Tazobactam 4.5 GM in Sodium Chloride 0.9% 100 ML IV SCH ×3 (00:03→16:12)
[2019-08-16] MEDS: Sodium Chloride 0.9% 10 ML Syringe IV SCH ×10 (00:03→20:48)
[2019-08-16] MEDS: Heparin Sodium 100 Units/ML 3 ML Syringe IVPUSH SCH ×7 (04:15→20:48)
[2019-08-16] MEDS: Acetaminophen 325 MG Tab PO PRN ×3 (04:20→20:53)
[2019-08-16] MEDS: Lisinopril 10 MG Tab PO SCH (08:14)
[2019-08-16] MEDS: Fluticasone Propionate Nasal Spray 16 GM Bottle NASBOTH SCH ×2 (08:14→20:53)
[2019-08-16] MEDS: Multivitamins with Iron/Calcium/Folic Acid/Minerals Tab PO SCH (08:14)
[2019-08-16] MEDS: Cyanocobalamin (Vitamin B12) 250 MCG Tab PO SCH ×2 (08:18→20:53)
[2019-08-16] MEDS: Cholecalciferol (Vitamin D3) 25 MCG Tab PO SCH (08:18)
[2019-08-16] MEDS: Lactobacillus Rhamnosus GG (Probiotic) Cap PO SCH (08:18)
[2019-08-16] MEDS: Ascorbic Acid 500 MG Tab PO SCH (08:18)
--- NOTE | 2019-08-16 13:36 | PCM.SN.2 ---
- Free Text/Narrative Note: Notified by nurse that patient was having more discomfort with his catheter this morning as well as hematuria. U/A done and shows hematuria but no pyuria. Highly unlikely he would get an infection while on zosyn. On exam, the stitch placed last week is no longer in the skin. His catheter is still draining well but he does have pain when this is moved. Suspect pain is related to lack of stability of the catheter. Confirmed with IR suture can remain out until they upsize this on 08/26. No need to do anything sooner unless further issues with the catheter arise.
[2019-08-17] MEDS: Sodium Chloride 0.9% 10 ML Syringe IV SCH ×10 (00:03→20:19)
[2019-08-17] MEDS: Piperacillin/Tazobactam 4.5 GM in Sodium Chloride 0.9% 100 ML IV SCH ×4 (00:07→23:51)
[2019-08-17] MEDS: Heparin Sodium 100 Units/ML 3 ML Syringe IVPUSH SCH ×7 (04:32→20:20)
[2019-08-17] MEDS: Sodium Chloride 0.9% 10 ML Syringe IV PRN (04:33)
[2019-08-17] MEDS: Fluticasone Propionate Nasal Spray 16 GM Bottle NASBOTH SCH ×2 (08:14→20:16)
[2019-08-17] MEDS: Lactobacillus Rhamnosus GG (Probiotic) Cap PO SCH (08:15)
[2019-08-17] MEDS: Ascorbic Acid 500 MG Tab PO SCH (08:16)
[2019-08-17] MEDS: Cyanocobalamin (Vitamin B12) 250 MCG Tab PO SCH ×2 (08:16→20:17)
[2019-08-17] MEDS: Multivitamins with Iron/Calcium/Folic Acid/Minerals Tab PO SCH (08:16)
[2019-08-17] MEDS: Cholecalciferol (Vitamin D3) 25 MCG Tab PO SCH (08:16)
[2019-08-17] MEDS: Lisinopril 10 MG Tab PO SCH (08:16)
[2019-08-17] MEDS: Acetaminophen 325 MG Tab PO PRN (20:17)
[2019-08-18] MEDS: Heparin Sodium 100 Units/ML 3 ML Syringe IVPUSH SCH ×7 (04:23→20:14)
[2019-08-18] MEDS: Sodium Chloride 0.9% 10 ML Syringe IV SCH ×10 (04:24→20:15)
[2019-08-18] MEDS: Multivitamins with Iron/Calcium/Folic Acid/Minerals Tab PO SCH (08:07)
[2019-08-18] MEDS: Cholecalciferol (Vitamin D3) 25 MCG Tab PO SCH (08:07)
[2019-08-18] MEDS: Cyanocobalamin (Vitamin B12) 250 MCG Tab PO SCH ×2 (08:07→20:12)
[2019-08-18] MEDS: Lisinopril 10 MG Tab PO SCH (08:07)
[2019-08-18] MEDS: Lactobacillus Rhamnosus GG (Probiotic) Cap PO SCH (08:07)
[2019-08-18] MEDS: Ascorbic Acid 500 MG Tab PO SCH (08:07)
[2019-08-18] MEDS: Fluticasone Propionate Nasal Spray 16 GM Bottle NASBOTH SCH ×2 (08:10→20:13)
[2019-08-18] MEDS: Piperacillin/Tazobactam 4.5 GM in Sodium Chloride 0.9% 100 ML IV SCH ×2 (08:11→16:10)
[2019-08-18] MEDS: Acetaminophen 325 MG Tab PO PRN (20:12)
[2019-08-19] MEDS: Piperacillin/Tazobactam 4.5 GM in Sodium Chloride 0.9% 100 ML IV SCH ×4 (00:02→23:40)
[2019-08-19] MEDS: Sodium Chloride 0.9% 10 ML Syringe IV SCH ×12 (00:03→23:42)
[2019-08-19] MEDS: Heparin Sodium 100 Units/ML 3 ML Syringe IVPUSH SCH ×8 (04:26→20:10)
[2019-08-19] MEDS: Sodium Chloride 0.9% 10 ML Syringe IV PRN ×3 (06:32→23:41)
[2019-08-19] MEDS: Acetaminophen 325 MG Tab PO PRN ×2 (06:32→20:10)
[2019-08-19] MEDS: Heparin Sodium 100 Units/ML 3 ML Syringe IVPUSH PRN (06:32)
[2019-08-19] MEDS: Fluticasone Propionate Nasal Spray 16 GM Bottle NASBOTH SCH ×2 (07:23→20:10)
[2019-08-19] MEDS: Lisinopril 10 MG Tab PO SCH (07:24)
[2019-08-19] MEDS: Cholecalciferol (Vitamin D3) 25 MCG Tab PO SCH (07:24)
[2019-08-19] MEDS: Lactobacillus Rhamnosus GG (Probiotic) Cap PO SCH (07:24)
[2019-08-19] MEDS: Ascorbic Acid 500 MG Tab PO SCH (07:24)
[2019-08-19] MEDS: Cyanocobalamin (Vitamin B12) 250 MCG Tab PO SCH ×2 (07:24→20:10)
[2019-08-19] MEDS: Multivitamins with Iron/Calcium/Folic Acid/Minerals Tab PO SCH (07:24)
[2019-08-20] MEDS: Sodium Chloride 0.9% 10 ML Syringe IV SCH ×10 (03:20→23:47)
[2019-08-20] MEDS: Heparin Sodium 100 Units/ML 3 ML Syringe IVPUSH SCH ×7 (03:20→20:31)
[2019-08-20] MEDS: Piperacillin/Tazobactam 4.5 GM in Sodium Chloride 0.9% 100 ML IV SCH ×3 (07:27→23:46)
[2019-08-20] MEDS: Ascorbic Acid 500 MG Tab PO SCH (07:28)
[2019-08-20] MEDS: Lactobacillus Rhamnosus GG (Probiotic) Cap PO SCH (07:28)
[2019-08-20] MEDS: Cyanocobalamin (Vitamin B12) 250 MCG Tab PO SCH ×2 (07:28→20:29)
[2019-08-20] MEDS: Multivitamins with Iron/Calcium/Folic Acid/Minerals Tab PO SCH (07:28)
[2019-08-20] MEDS: Cholecalciferol (Vitamin D3) 25 MCG Tab PO SCH (07:28)
[2019-08-20] MEDS: Fluticasone Propionate Nasal Spray 16 GM Bottle NASBOTH SCH ×2 (07:29→20:28)
[2019-08-20] MEDS: Lisinopril 10 MG Tab PO SCH (07:30)
[2019-08-20] MEDS: Acetaminophen 325 MG Tab PO PRN ×3 (07:35→20:29)
[2019-08-20] MEDS: Heparin Sodium 100 Units/ML 3 ML Syringe IVPUSH PRN (20:29)
[2019-08-20] MEDS: Sodium Chloride 0.9% 10 ML Syringe IV PRN (23:46)
[2019-08-21] MEDS: Sodium Chloride 0.9% 10 ML Syringe IV SCH ×9 (03:49→20:08)
[2019-08-21] MEDS: Heparin Sodium 100 Units/ML 3 ML Syringe IVPUSH SCH ×7 (03:50→20:07)
[2019-08-21] MEDS: Cyanocobalamin (Vitamin B12) 250 MCG Tab PO SCH ×2 (08:12→20:05)
[2019-08-21] MEDS: Lisinopril 10 MG Tab PO SCH (08:12)
[2019-08-21] MEDS: Ascorbic Acid 500 MG Tab PO SCH (08:12)
[2019-08-21] MEDS: Multivitamins with Iron/Calcium/Folic Acid/Minerals Tab PO SCH (08:12)
[2019-08-21] MEDS: Lactobacillus Rhamnosus GG (Probiotic) Cap PO SCH (08:12)
[2019-08-21] MEDS: Acetaminophen 325 MG Tab PO PRN ×3 (08:12→20:06)
[2019-08-21] MEDS: Cholecalciferol (Vitamin D3) 25 MCG Tab PO SCH (08:12)
[2019-08-21] MEDS: Fluticasone Propionate Nasal Spray 16 GM Bottle NASBOTH SCH ×2 (08:13→20:06)
[2019-08-21] MEDS: Piperacillin/Tazobactam 4.5 GM in Sodium Chloride 0.9% 100 ML IV SCH ×2 (08:14→16:05)
[2019-08-22] MEDS: Piperacillin/Tazobactam 4.5 GM in Sodium Chloride 0.9% 100 ML IV SCH ×4 (00:07→23:58)
[2019-08-22] MEDS: Sodium Chloride 0.9% 10 ML Syringe IV SCH ×10 (00:08→20:46)
[2019-08-22] MEDS: Heparin Sodium 100 Units/ML 3 ML Syringe IVPUSH SCH ×7 (04:13→20:45)
[2019-08-22] MEDS: Acetaminophen 325 MG Tab PO PRN ×3 (05:49→20:41)
[2019-08-22] MEDS: Fluticasone Propionate Nasal Spray 16 GM Bottle NASBOTH SCH ×2 (09:05→20:40)
[2019-08-22] MEDS: Multivitamins with Iron/Calcium/Folic Acid/Minerals Tab PO SCH (09:11)
[2019-08-22] MEDS: Ascorbic Acid 500 MG Tab PO SCH (09:11)
[2019-08-22] MEDS: Cholecalciferol (Vitamin D3) 25 MCG Tab PO SCH (09:11)
[2019-08-22] MEDS: Cyanocobalamin (Vitamin B12) 250 MCG Tab PO SCH ×2 (09:11→20:44)
--- NOTE | 2019-08-22 09:11 | PCM.SN.2 ---
- Free Text/Narrative Note: Stopped in to talk with patient regarding his mood. He states he is feeling better today than last week. He remains frustrated about the situation but is not overly concerned about his mood. He denies any assistance in this manner and is specifically not interested in any medications nor any counseling.
[2019-08-22] MEDS: Lactobacillus Rhamnosus GG (Probiotic) Cap PO SCH (09:12)
[2019-08-22] MEDS: Lisinopril 10 MG Tab PO SCH (09:12)
[2019-08-23] MEDS: Sodium Chloride 0.9% 10 ML Syringe IV SCH ×10 (00:23→20:27)
[2019-08-23] MEDS: Heparin Sodium 100 Units/ML 3 ML Syringe IVPUSH SCH ×7 (03:33→20:21)
[2019-08-23] MEDS: Lactobacillus Rhamnosus GG (Probiotic) Cap PO SCH (09:02)
[2019-08-23] MEDS: Fluticasone Propionate Nasal Spray 16 GM Bottle NASBOTH SCH ×2 (09:02→20:22)
[2019-08-23] MEDS: Lisinopril 10 MG Tab PO SCH (09:02)
[2019-08-23] MEDS: Multivitamins with Iron/Calcium/Folic Acid/Minerals Tab PO SCH (09:03)
[2019-08-23] MEDS: Acetaminophen 325 MG Tab PO PRN ×2 (09:03→20:25)
[2019-08-23] MEDS: Cyanocobalamin (Vitamin B12) 250 MCG Tab PO SCH ×2 (09:04→20:25)
[2019-08-23] MEDS: Ascorbic Acid 500 MG Tab PO SCH (09:08)
[2019-08-23] MEDS: Cholecalciferol (Vitamin D3) 25 MCG Tab PO SCH (09:08)
[2019-08-23] MEDS: Piperacillin/Tazobactam 4.5 GM in Sodium Chloride 0.9% 100 ML IV SCH ×2 (09:09→17:45)
[2019-08-24] MEDS: Piperacillin/Tazobactam 4.5 GM in Sodium Chloride 0.9% 100 ML IV SCH ×4 (00:15→23:53)
[2019-08-24] MEDS: Sodium Chloride 0.9% 10 ML Syringe IV SCH ×11 (00:20→23:53)
[2019-08-24] MEDS: Heparin Sodium 100 Units/ML 3 ML Syringe IVPUSH SCH ×7 (04:48→19:50)
[2019-08-24] MEDS: Lisinopril 10 MG Tab PO SCH (08:31)
[2019-08-24] MEDS: Fluticasone Propionate Nasal Spray 16 GM Bottle NASBOTH SCH ×2 (08:31→19:49)
[2019-08-24] MEDS: Acetaminophen 325 MG Tab PO PRN ×2 (08:32→19:46)
[2019-08-24] MEDS: Lactobacillus Rhamnosus GG (Probiotic) Cap PO SCH (08:33)
[2019-08-24] MEDS: Cholecalciferol (Vitamin D3) 25 MCG Tab PO SCH (08:33)
[2019-08-24] MEDS: Ascorbic Acid 500 MG Tab PO SCH (08:33)
[2019-08-24] MEDS: Multivitamins with Iron/Calcium/Folic Acid/Minerals Tab PO SCH (08:33)
[2019-08-24] MEDS: Cyanocobalamin (Vitamin B12) 250 MCG Tab PO SCH ×2 (08:33→19:57)
[2019-08-25] MEDS: Acetaminophen 325 MG Tab PO PRN ×2 (04:14→18:26)
[2019-08-25] MEDS: Sodium Chloride 0.9% 10 ML Syringe IV SCH ×9 (04:16→20:55)
[2019-08-25] MEDS: Heparin Sodium 100 Units/ML 3 ML Syringe IVPUSH SCH ×7 (04:16→20:54)
[2019-08-25] MEDS: Piperacillin/Tazobactam 4.5 GM in Sodium Chloride 0.9% 100 ML IV SCH ×2 (09:11→16:40)
[2019-08-25] MEDS: Cyanocobalamin (Vitamin B12) 250 MCG Tab PO SCH ×2 (09:14→19:57)
[2019-08-25] MEDS: Lactobacillus Rhamnosus GG (Probiotic) Cap PO SCH (09:14)
[2019-08-25] MEDS: Ascorbic Acid 500 MG Tab PO SCH (09:15)
[2019-08-25] MEDS: Multivitamins with Iron/Calcium/Folic Acid/Minerals Tab PO SCH (09:15)
[2019-08-25] MEDS: Lisinopril 10 MG Tab PO SCH (09:15)
[2019-08-25] MEDS: Fluticasone Propionate Nasal Spray 16 GM Bottle NASBOTH SCH ×2 (09:16→19:58)
[2019-08-25] MEDS: Cholecalciferol (Vitamin D3) 25 MCG Tab PO SCH (09:19)
[2019-08-26] MEDS: Sodium Chloride 0.9% 10 ML Syringe IV SCH ×11 (00:53→23:57)
[2019-08-26] MEDS: Piperacillin/Tazobactam 4.5 GM in Sodium Chloride 0.9% 100 ML IV SCH ×4 (00:53→23:56)
[2019-08-26] MEDS: Heparin Sodium 100 Units/ML 3 ML Syringe IVPUSH SCH ×7 (05:01→19:21)
[2019-08-26] MEDS: Acetaminophen 325 MG Tab PO PRN ×2 (06:10→19:22)
[2019-08-26] MEDS: Sodium Chloride 0.9% 10 ML Syringe IV PRN ×2 (06:36→23:57)
[2019-08-26] MEDS: Heparin Sodium 100 Units/ML 3 ML Syringe IVPUSH PRN (06:38)
[2019-08-26] MEDS: Lisinopril 10 MG Tab PO SCH (08:04)
[2019-08-26] MEDS: Lactobacillus Rhamnosus GG (Probiotic) Cap PO SCH (08:05)
[2019-08-26] MEDS: Cholecalciferol (Vitamin D3) 25 MCG Tab PO SCH (08:05)
[2019-08-26] MEDS: Fluticasone Propionate Nasal Spray 16 GM Bottle NASBOTH SCH ×2 (08:05→19:21)
[2019-08-26] MEDS: Ascorbic Acid 500 MG Tab PO SCH (08:05)
[2019-08-26] MEDS: Cyanocobalamin (Vitamin B12) 250 MCG Tab PO SCH ×2 (08:05→19:22)
[2019-08-26] MEDS: Multivitamins with Iron/Calcium/Folic Acid/Minerals Tab PO SCH (08:05)
[2019-08-27] MEDS: Sodium Chloride 0.9% 10 ML Syringe IV SCH ×9 (03:55→19:40)
[2019-08-27] MEDS: Heparin Sodium 100 Units/ML 3 ML Syringe IVPUSH SCH ×7 (03:55→19:40)
[2019-08-27] MEDS: Lisinopril 10 MG Tab PO SCH ×2 (04:50→07:34)
[2019-08-27] MEDS: Acetaminophen 325 MG Tab PO PRN ×3 (04:50→19:39)
[2019-08-27] MEDS: Fluticasone Propionate Nasal Spray 16 GM Bottle NASBOTH SCH ×2 (07:33→19:39)
[2019-08-27] MEDS: Lactobacillus Rhamnosus GG (Probiotic) Cap PO SCH (07:33)
[2019-08-27] MEDS: Cyanocobalamin (Vitamin B12) 250 MCG Tab PO SCH ×2 (07:34→19:39)
[2019-08-27] MEDS: Ascorbic Acid 500 MG Tab PO SCH (07:34)
[2019-08-27] MEDS: Multivitamins with Iron/Calcium/Folic Acid/Minerals Tab PO SCH (07:34)
[2019-08-27] MEDS: Piperacillin/Tazobactam 4.5 GM in Sodium Chloride 0.9% 100 ML IV SCH ×2 (07:35→16:05)
[2019-08-27] MEDS: Cholecalciferol (Vitamin D3) 25 MCG Tab PO SCH (07:35)
[2019-08-28] MEDS: Acetaminophen 325 MG Tab PO PRN ×6 (00:24→23:59)
[2019-08-28] MEDS: Sodium Chloride 0.9% 10 ML Syringe IV SCH ×10 (00:25→19:29)
[2019-08-28] MEDS: Piperacillin/Tazobactam 4.5 GM in Sodium Chloride 0.9% 100 ML IV SCH ×3 (00:25→16:05)
[2019-08-28] MEDS: Heparin Sodium 100 Units/ML 3 ML Syringe IVPUSH SCH ×8 (03:53→22:40)
[2019-08-28] MEDS: Ascorbic Acid 500 MG Tab PO SCH (07:57)
[2019-08-28] MEDS: Cyanocobalamin (Vitamin B12) 250 MCG Tab PO SCH ×2 (07:57→19:30)
[2019-08-28] MEDS: Cholecalciferol (Vitamin D3) 25 MCG Tab PO SCH (07:57)
[2019-08-28] MEDS: Lactobacillus Rhamnosus GG (Probiotic) Cap PO SCH (07:57)
[2019-08-28] MEDS: Multivitamins with Iron/Calcium/Folic Acid/Minerals Tab PO SCH (07:57)
[2019-08-28] MEDS: Fluticasone Propionate Nasal Spray 16 GM Bottle NASBOTH SCH ×2 (07:58→19:31)
[2019-08-28] MEDS: Lisinopril 10 MG Tab PO SCH (07:58)
--- NOTE | 2019-08-28 15:18 | PCM.SN.2 ---
- Free Text/Narrative Note: S: Contacted by nursing due to right jaw/ear pain. Patient states that he has been having a right sided headache for the past 2 weeks. This is not unusual for him to get headaches in this location as he approaches being due for his ocrevus infusion, which has been delayed due to his buttock wound. However, he has also had pain anterior to his ear and radiating into the right side of his neck as well. He also notes that he had a tooth break off on the right lower jaw about 2 weeks ago and has had mild pain related to that. No fever. O: Vitals reviewed. Tenderness and mild edema anterior to the right ear and along the right anterior cervical lymph node chain without any palpable lymphadenopathy. Right ear canal and TM normal. Right lower jaw with fractured teeth in the posterior aspect with some associated gum erythema but no significant edema; tenderness to palpation is mild. A/P: #1 Parotitis - Pain anterior to his ear is likely parotitis. - This is not likely to be bacterial as he is still on zosyn, which should cover any bacterial etiology. - Reviewed use of sialogogues. - If symptoms worsen or do not improve, he is to let the nurses know so I can be notified. - Will also add aleve back to his med list. #2 Fractured teeth - Dental care is not an option at this time. Will monitor for any infection, which is unlikely now as outlined above. Ember Mcqueen MD
[2019-08-29] MEDS: Acetaminophen 325 MG Tab PO PRN ×4 (06:37→19:47)
[2019-08-29] MEDS: Fluticasone Propionate Nasal Spray 16 GM Bottle NASBOTH SCH ×2 (08:25→19:48)
[2019-08-29] MEDS: Sodium Chloride 0.9% 10 ML Syringe IV SCH ×6 (08:26→19:49)
[2019-08-29] MEDS: Heparin Sodium 100 Units/ML 3 ML Syringe IVPUSH SCH ×6 (08:26→19:49)
[2019-08-29] MEDS: Lisinopril 10 MG Tab (OWN SUPPLY) PO SCH (08:26)
[2019-08-29] MEDS: Cholecalciferol (Vitamin D3) 25 MCG Tab PO SCH (08:27)
[2019-08-29] MEDS: Ascorbic Acid 500 MG Tab PO SCH (08:27)
[2019-08-29] MEDS: Multivitamins with Iron/Calcium/Folic Acid/Minerals Tab PO SCH (08:27)
[2019-08-29] MEDS: Cyanocobalamin (Vitamin B12) 250 MCG Tab PO SCH ×2 (08:27→19:47)
[2019-08-29] MEDS: Lactobacillus Rhamnosus GG (Probiotic) Cap PO SCH (08:27)
[2019-08-29] MEDS: methylPREDNISolone Sod Succ 1,000 MG in Sodium Chloride 0.9% 100 ML IV SCH (16:56)
[2019-08-29] MEDS: Sodium Chloride 0.9% 10 ML Syringe IV PRN (16:57)
[2019-08-29] MEDS: Heparin Sodium 100 Units/ML 3 ML Syringe IVPUSH PRN (17:43)
[2019-08-30] MEDS: methylPREDNISolone Sod Succ 1,000 MG in Sodium Chloride 0.9% 100 ML IV SCH (08:27)
[2019-08-30] MEDS: Sodium Chloride 0.9% 10 ML Syringe IV SCH ×6 (08:28→19:14)
[2019-08-30] MEDS: Heparin Sodium 100 Units/ML 3 ML Syringe IVPUSH SCH ×6 (08:29→19:15)
[2019-08-30] MEDS: Lisinopril 10 MG Tab (OWN SUPPLY) PO SCH (08:30)
[2019-08-30] MEDS: Fluticasone Propionate Nasal Spray 16 GM Bottle NASBOTH SCH ×2 (08:31→19:15)
[2019-08-30] MEDS: Cholecalciferol (Vitamin D3) 25 MCG Tab PO SCH (08:37)
[2019-08-30] MEDS: Acetaminophen 325 MG Tab PO PRN ×2 (08:37→19:14)
[2019-08-30] MEDS: Lactobacillus Rhamnosus GG (Probiotic) Cap PO SCH (08:37)
[2019-08-30] MEDS: Ascorbic Acid 500 MG Tab PO SCH (08:41)
[2019-08-30] MEDS: Multivitamins with Iron/Calcium/Folic Acid/Minerals Tab PO SCH (08:41)
[2019-08-30] MEDS: Cyanocobalamin (Vitamin B12) 250 MCG Tab PO SCH ×2 (08:41→19:14)
[2019-08-30] MEDS: Sodium Chloride 0.9% 10 ML Syringe IV PRN (08:45)
[2019-08-31] MEDS: methylPREDNISolone Sod Succ 1,000 MG in Sodium Chloride 0.9% 100 ML IV SCH (08:55)
[2019-08-31] MEDS: Sodium Chloride 0.9% 10 ML Syringe IV SCH ×6 (09:00→20:28)
[2019-08-31] MEDS: Heparin Sodium 100 Units/ML 3 ML Syringe IVPUSH SCH ×6 (09:00→20:28)
[2019-08-31] MEDS: Lactobacillus Rhamnosus GG (Probiotic) Cap PO SCH (09:01)
[2019-08-31] MEDS: Cyanocobalamin (Vitamin B12) 250 MCG Tab PO SCH ×2 (09:01→20:26)
[2019-08-31] MEDS: Cholecalciferol (Vitamin D3) 25 MCG Tab PO SCH (09:01)
[2019-08-31] MEDS: Ascorbic Acid 500 MG Tab PO SCH (09:02)
[2019-08-31] MEDS: Multivitamins with Iron/Calcium/Folic Acid/Minerals Tab PO SCH (09:02)
[2019-08-31] MEDS: Acetaminophen 325 MG Tab PO PRN ×2 (09:02→20:27)
[2019-08-31] MEDS: Lisinopril 10 MG Tab (OWN SUPPLY) PO SCH (09:03)
[2019-08-31] MEDS: Fluticasone Propionate Nasal Spray 16 GM Bottle NASBOTH SCH ×2 (09:04→20:26)
[2019-09-01] MEDS: Lisinopril 10 MG Tab (OWN SUPPLY) PO SCH (08:41)
[2019-09-01] MEDS: Fluticasone Propionate Nasal Spray 16 GM Bottle NASBOTH SCH ×2 (08:41→19:34)
[2019-09-01] MEDS: Acetaminophen 325 MG Tab PO PRN ×2 (08:43→19:35)
[2019-09-01] MEDS: Cholecalciferol (Vitamin D3) 25 MCG Tab PO SCH (08:44)
[2019-09-01] MEDS: Heparin Sodium 100 Units/ML 3 ML Syringe IVPUSH SCH ×3 (08:45)
[2019-09-01] MEDS: Multivitamins with Iron/Calcium/Folic Acid/Minerals Tab PO SCH (08:45)
[2019-09-01] MEDS: Lactobacillus Rhamnosus GG (Probiotic) Cap PO SCH (08:45)
[2019-09-01] MEDS: Ascorbic Acid 500 MG Tab PO SCH (08:45)
[2019-09-01] MEDS: Cyanocobalamin (Vitamin B12) 250 MCG Tab PO SCH ×2 (08:45→19:35)
[2019-09-01] MEDS: Sodium Chloride 0.9% 10 ML Syringe IV SCH ×3 (08:46)
[2019-09-02] MEDS: Acetaminophen 325 MG Tab PO PRN ×2 (09:49→20:43)
[2019-09-02] MEDS: Cholecalciferol (Vitamin D3) 25 MCG Tab PO SCH (09:50)
[2019-09-02] MEDS: Lactobacillus Rhamnosus GG (Probiotic) Cap PO SCH (09:50)
[2019-09-02] MEDS: Lisinopril 10 MG Tab (OWN SUPPLY) PO SCH (09:51)
[2019-09-02] MEDS: Cyanocobalamin (Vitamin B12) 250 MCG Tab PO SCH ×2 (09:51→20:46)
[2019-09-02] MEDS: Ascorbic Acid 500 MG Tab PO SCH (09:51)
[2019-09-02] MEDS: Multivitamins with Iron/Calcium/Folic Acid/Minerals Tab PO SCH (09:51)
[2019-09-02] MEDS: Fluticasone Propionate Nasal Spray 16 GM Bottle NASBOTH SCH ×2 (09:52→20:40)
[2019-09-03] MEDS: Fluticasone Propionate Nasal Spray 16 GM Bottle NASBOTH SCH ×3 (05:05→19:27)
[2019-09-03] MEDS: Acetaminophen 325 MG Tab PO PRN ×2 (05:06→19:28)
[2019-09-03] MEDS: Lisinopril 10 MG Tab (OWN SUPPLY) PO SCH ×2 (05:06→09:21)
[2019-09-03] MEDS: Cyanocobalamin (Vitamin B12) 250 MCG Tab PO SCH ×2 (09:21→19:27)
[2019-09-03] MEDS: Cholecalciferol (Vitamin D3) 25 MCG Tab PO SCH (15:21)
[2019-09-03] MEDS: Multivitamins with Iron/Calcium/Folic Acid/Minerals Tab PO SCH (15:21)
[2019-09-03] MEDS: Lactobacillus Rhamnosus GG (Probiotic) Cap PO SCH (15:21)
[2019-09-03] MEDS: Ascorbic Acid 500 MG Tab PO SCH (15:21)
[2019-09-04] MEDS: Ascorbic Acid 500 MG Tab PO SCH (07:50)
[2019-09-04] MEDS: Lactobacillus Rhamnosus GG (Probiotic) Cap PO SCH (07:50)
[2019-09-04] MEDS: Cyanocobalamin (Vitamin B12) 250 MCG Tab PO SCH ×2 (07:50→19:22)
[2019-09-04] MEDS: Cholecalciferol (Vitamin D3) 25 MCG Tab PO SCH (07:50)
[2019-09-04] MEDS: Multivitamins with Iron/Calcium/Folic Acid/Minerals Tab PO SCH (07:50)
[2019-09-04] MEDS: Fluticasone Propionate Nasal Spray 16 GM Bottle NASBOTH SCH ×2 (07:50→19:21)
[2019-09-04] MEDS: Lisinopril 10 MG Tab (OWN SUPPLY) PO SCH (07:51)
[2019-09-04] MEDS: Acetaminophen 325 MG Tab PO PRN (19:22)
[2019-09-05] MEDS: Lactobacillus Rhamnosus GG (Probiotic) Cap PO SCH (07:38)
[2019-09-05] MEDS: Lisinopril 10 MG Tab (OWN SUPPLY) PO SCH (07:38)
[2019-09-05] MEDS: Cholecalciferol (Vitamin D3) 25 MCG Tab PO SCH (07:38)
[2019-09-05] MEDS: Fluticasone Propionate Nasal Spray 16 GM Bottle NASBOTH SCH ×2 (07:38→20:17)
[2019-09-05] MEDS: Ascorbic Acid 500 MG Tab PO SCH (07:38)
[2019-09-05] MEDS: Cyanocobalamin (Vitamin B12) 250 MCG Tab PO SCH ×2 (07:38→20:17)
[2019-09-05] MEDS: Multivitamins with Iron/Calcium/Folic Acid/Minerals Tab PO SCH (07:38)
[2019-09-05] MEDS: Acetaminophen 325 MG Tab PO PRN ×2 (07:44→20:19)
[2019-09-06] MEDS: Acetaminophen 325 MG Tab PO PRN ×2 (08:09→19:51)
[2019-09-06] MEDS: Lisinopril 10 MG Tab (OWN SUPPLY) PO SCH (08:10)
[2019-09-06] MEDS: Cyanocobalamin (Vitamin B12) 250 MCG Tab PO SCH ×2 (08:10→19:46)
[2019-09-06] MEDS: Fluticasone Propionate Nasal Spray 16 GM Bottle NASBOTH SCH ×2 (08:10→19:45)
[2019-09-06] MEDS: Lactobacillus Rhamnosus GG (Probiotic) Cap PO SCH (08:10)
[2019-09-06] MEDS: Cholecalciferol (Vitamin D3) 25 MCG Tab PO SCH (08:10)
[2019-09-06] MEDS: Ascorbic Acid 500 MG Tab PO SCH (08:10)
[2019-09-06] MEDS: Multivitamins with Iron/Calcium/Folic Acid/Minerals Tab PO SCH (08:10)
[2019-09-07] MEDS: Fluticasone Propionate Nasal Spray 16 GM Bottle NASBOTH SCH ×2 (09:09→20:14)
[2019-09-07] MEDS: Lactobacillus Rhamnosus GG (Probiotic) Cap PO SCH (09:09)
[2019-09-07] MEDS: Ascorbic Acid 500 MG Tab PO SCH (09:09)
[2019-09-07] MEDS: Cyanocobalamin (Vitamin B12) 250 MCG Tab PO SCH ×2 (09:10→20:15)
[2019-09-07] MEDS: Multivitamins with Iron/Calcium/Folic Acid/Minerals Tab PO SCH (09:10)
[2019-09-07] MEDS: Cholecalciferol (Vitamin D3) 25 MCG Tab PO SCH (09:10)
[2019-09-07] MEDS: Lisinopril 10 MG Tab (OWN SUPPLY) PO SCH (09:11)
[2019-09-07] MEDS: Acetaminophen 325 MG Tab PO PRN ×2 (09:16→20:14)
[2019-09-08] MEDS: Fluticasone Propionate Nasal Spray 16 GM Bottle NASBOTH SCH ×2 (08:01→20:20)
[2019-09-08] MEDS: Multivitamins with Iron/Calcium/Folic Acid/Minerals Tab PO SCH (08:02)
[2019-09-08] MEDS: Cyanocobalamin (Vitamin B12) 250 MCG Tab PO SCH ×2 (08:04→20:22)
[2019-09-08] MEDS: Cholecalciferol (Vitamin D3) 25 MCG Tab PO SCH (08:04)
[2019-09-08] MEDS: Lactobacillus Rhamnosus GG (Probiotic) Cap PO SCH (08:04)
[2019-09-08] MEDS: Acetaminophen 325 MG Tab PO PRN ×2 (08:05→20:20)
[2019-09-08] MEDS: Ascorbic Acid 500 MG Tab PO SCH (08:05)
[2019-09-08] MEDS: Lisinopril 10 MG Tab (OWN SUPPLY) PO SCH (08:11)
[2019-09-09] MEDS: Fluticasone Propionate Nasal Spray 16 GM Bottle NASBOTH SCH ×2 (08:17→19:57)
[2019-09-09] MEDS: Lisinopril 10 MG Tab (OWN SUPPLY) PO SCH (08:18)
[2019-09-09] MEDS: Multivitamins with Iron/Calcium/Folic Acid/Minerals Tab PO SCH (08:19)
[2019-09-09] MEDS: Ascorbic Acid 500 MG Tab PO SCH (08:19)
[2019-09-09] MEDS: Lactobacillus Rhamnosus GG (Probiotic) Cap PO SCH (08:19)
[2019-09-09] MEDS: Cholecalciferol (Vitamin D3) 25 MCG Tab PO SCH (08:19)
[2019-09-09] MEDS: Cyanocobalamin (Vitamin B12) 250 MCG Tab PO SCH ×2 (08:19→19:57)
[2019-09-09] MEDS: Acetaminophen 325 MG Tab PO PRN ×2 (08:21→19:57)
[2019-09-10] MEDS: Lisinopril 10 MG Tab (OWN SUPPLY) PO SCH (07:25)
[2019-09-10] MEDS: Lactobacillus Rhamnosus GG (Probiotic) Cap PO SCH (07:26)
[2019-09-10] MEDS: Cyanocobalamin (Vitamin B12) 250 MCG Tab PO SCH ×2 (07:26→19:25)
[2019-09-10] MEDS: Multivitamins with Iron/Calcium/Folic Acid/Minerals Tab PO SCH (07:26)
[2019-09-10] MEDS: Fluticasone Propionate Nasal Spray 16 GM Bottle NASBOTH SCH ×2 (07:26→19:25)
[2019-09-10] MEDS: Cholecalciferol (Vitamin D3) 25 MCG Tab PO SCH (07:26)
[2019-09-10] MEDS: Ascorbic Acid 500 MG Tab PO SCH (07:26)
[2019-09-10] MEDS: Acetaminophen 325 MG Tab PO PRN ×2 (07:26→16:12)
[2019-09-11] MEDS: Acetaminophen 325 MG Tab PO PRN ×4 (03:08→19:17)
[2019-09-11] MEDS: Lactobacillus Rhamnosus GG (Probiotic) Cap PO SCH (07:28)
[2019-09-11] MEDS: Cholecalciferol (Vitamin D3) 25 MCG Tab PO SCH (07:28)
[2019-09-11] MEDS: Multivitamins with Iron/Calcium/Folic Acid/Minerals Tab PO SCH (07:28)
[2019-09-11] MEDS: Cyanocobalamin (Vitamin B12) 250 MCG Tab PO SCH ×2 (07:28→19:17)
[2019-09-11] MEDS: Ascorbic Acid 500 MG Tab PO SCH (07:28)
[2019-09-11] MEDS: Lisinopril 10 MG Tab (OWN SUPPLY) PO SCH (07:29)
[2019-09-11] MEDS: Fluticasone Propionate Nasal Spray 16 GM Bottle NASBOTH SCH ×2 (07:29→19:18)
[2019-09-12] MEDS: Cyanocobalamin (Vitamin B12) 250 MCG Tab PO SCH ×2 (07:59→19:22)
[2019-09-12] MEDS: Multivitamins with Iron/Calcium/Folic Acid/Minerals Tab PO SCH (07:59)
[2019-09-12] MEDS: Lactobacillus Rhamnosus GG (Probiotic) Cap PO SCH (07:59)
[2019-09-12] MEDS: Fluticasone Propionate Nasal Spray 16 GM Bottle NASBOTH SCH ×2 (08:00→19:22)
[2019-09-12] MEDS: Lisinopril 10 MG Tab (OWN SUPPLY) PO SCH (08:00)
[2019-09-12] MEDS: Cholecalciferol (Vitamin D3) 25 MCG Tab PO SCH (08:00)
[2019-09-12] MEDS: Ascorbic Acid 500 MG Tab PO SCH (08:00)
--- NOTE | 2019-09-12 11:22 | PCM.PN ---
- General Info Date of Service: 09/12/19 Subjective Update: 44 yo male seen today for swing bed follow-up. Nursing notes redness in the groin bilaterally with associated foul odor. They are wondering about a treatment for yeast. Suprapubic catheter site looks good and is without concern. The patient states that he is otherwise doing well and denies any other concerns. His appetite has been good. His ostomy and suprapubic catheter continue to work well. His wound is healing, although he does wish it was healing faster. No fever or chills. - Review of Systems General: Reports: No Symptoms HEENT: Reports: No Symptoms Pulmonary: Reports: No Symptoms Cardiovascular: Reports: No Symptoms Gastrointestinal: Reports: No Symptoms Genitourinary: Reports: No Symptoms Musculoskeletal: Reports: No Symptoms Skin: Reports: No Symptoms - Patient Data Vitals - Most Recent: Last Vital Signs Temp 35.8 C L 09/12/19 06:00 Pulse 79 09/12/19 06:00 Resp 18 09/12/19 06:00 BP 109/64 09/12/19 08:00 Pulse Ox 98 09/12/19 06:00 Weight - Most Recent: 132.903 kg I&O - Last 24 Hours: Intake & Output 09/11/19 09/12/19 09/12/19 22:59 06:59 14:59 Intake Total 360 240 Output Total 2400 1800 Balance -2040 -1800 240 Med Orders - Current: Current Medications Acetaminophen (Tylenol) 650 mg PO Q4H PRN PRN Reason: Pain (mild 1-3) Last Admin: 09/11/19 19:17 Dose: 650 mg Ascorbic Acid (Vitamin C) 500 mg PO DAILY [facility] Last Admin: 09/12/19 08:00 Dose: 500 mg Cholecalciferol (Vitamin D3) 100 mcg PO DAILY [facility] Last Admin: 09/12/19 08:00 Dose: 100 mcg Cyanocobalamin (Vitamin B12) 500 mcg PO BID [facility] Last Admin: 09/12/19 07:59 Dose: 500 mcg Fluticasone Propionate (Flonase) 0 gm NASBOTH BID [facility] Last Admin: 09/12/19 08:00 Dose: 1 spray Lactobacillus Rhamnosus (Culturelle) 1 cap PO DAILY [facility] Last Admin: 09/12/19 07:59 Dose: 1 cap Lisinopril (Prinivil) 10 mg PO DAILY [facility] Last Admin: 09/12/19 08:00 Dose: 10 mg Multivitamins/Minerals (Thera M Plus) 1 tab PO DAILY [facility] Last Admin: 09/12/19 07:59 Dose: 1 tab Naproxen (Naproxen Sodium) 220 mg PO Q12H PRN PRN Reason: Pain Last Admin: 09/03/19 15:21 Dose: 220 mg Senna/Docusate Sodium (Senna Plus) 2 tab PO BEDTIME PRN PRN Reason: Constipation Last Admin: 09/11/19 19:18 Dose: 2 tab Discontinued Medications Fluticasone Propionate (Flonase) 0 gm NASBOTH BID [facility] Stop: 08/28/19 21:00 Last Admin: 08/28/19 19:31 Dose: 1 spr Heparin Sodium (Porcine) (Heparin Lock Flush 100 Units/Ml) 300 unit IVPUSH Q8H [facility] Last Admin: 07/22/19 13:01 Dose: 300 unit Heparin Sodium (Porcine) (Heparin Lock Flush 100 Units/Ml) 300 unit IVPUSH ASDIRECTED PRN PRN Reason: Keep Vein Open Last Admin: 08/29/19 17:43 Dose: 300 unit Heparin Sodium (Porcine) (Heparin Lock Flush 100 Units/Ml) 300 unit IVPUSH Q12H [facility] Last Admin: 09/01/19 08:45 Dose: Not Given Heparin Sodium (Porcine) (Heparin Lock Flush 100 Units/Ml) 300 unit IVPUSH Q12H [facility] Last Admin: 09/01/19 08:45 Dose: Not Given Heparin Sodium (Porcine) (Heparin Lock Flush 100 Units/Ml) 300 unit IVPUSH Q8H [facility] Last Admin: 08/28/19 19:29 Dose: 300 unit Heparin Sodium (Porcine) (Heparin Lock Flush 100 Units/Ml) 300 unit IVPUSH Q12HR [facility] Last Admin: 09/01/19 08:45 Dose: Not Given Piperacillin Sod/Tazobactam (Sod 4.5 gm/ Sodium Chloride) 100 mls @ 25 mls/hr IV Q8H [facility] Last Admin: 07/20/19 08:20 Dose: Not Given Piperacillin Sod/Tazobactam (Sod 4.5 gm/ Sodium Chloride) 100 mls @ 25 mls/hr IV Q8H [facility] Stop: 08/28/19 17:00 Last Admin: 08/28/19 16:05 Dose: 25 mls/hr Methylprednisolone Sodium Succinate 1,000 mg/ Sodium Chloride 108 mls @ 200 mls /hr IV DAILY [facility] Stop: 08/31/19 08:01 Last Admin: 08/31/19 08:55 Dose: 200 mls/hr Lidocaine HCl (Xylocaine-Mpf 1%) 5 ml INJECT ONETIME ONE Stop: 08/08/19 18:08 Last Admin: 08/08/19 18:20 Dose: Not Given Lidocaine HCl (Xylocaine-Mpf 1%) 5 ml INJECT STAT ONE Stop: 08/08/19 18:08 Last Admin: 08/08/19 19:05 Dose: 5 ml Lisinopril (Prinivil) 10 mg PO DAILY [facility] Last Admin: 08/28/19 07:58 Dose: 10 mg Metoclopramide HCl (Reglan) 10 mg PO Q6H [facility] Last Admin: 07/29/19 14:46 Dose: Not Given Ondansetron HCl (Zofran Odt) 4 mg PO Q6H PRN PRN Reason: Nausea/Vomiting Last Admin: 07/27/19 07:43 Dose: 4 mg Sodium Chloride (Saline Flush) 10 ml IV Q8HR@0000,0800,1600 [facility] Last Admin: 07/22/19 08:48 Dose: 10 ml Sodium Chloride (Saline Flush) 10 ml IV ASDIRECTED PRN PRN Reason: Keep Vein Open Last Admin: 08/30/19 08:45 Dose: 10 ml Sodium Chloride (Saline Flush) 10 ml IV Q8HR@1200,2000,0400 [facility] Last Admin: 07/22/19 13:01 Dose: 10 ml Sodium Chloride (Saline Flush) 10 ml IV Q12H [facility] Last Admin: 09/01/19 08:46 Dose: Not Given Sodium Chloride (Saline Flush) 10 ml IV Q12H [facility] Last Admin: 09/01/19 08:46 Dose: Not Given Sodium Chloride (Saline Flush) 10 ml IV Q4H [facility] Last Admin: 08/28/19 19:29 Dose: 10 ml Sodium Chloride (Saline Flush) 10 ml IV BID@0800,2000 [facility] Last Admin: 09/01/19 08:46 Dose: Not Given - Exam General: Alert, Oriented, Cooperative, No Acute Distress HEENT: Mucous Membr. Moist/[place] Neck: Supple, Trachea Midline, No Thyromegaly. No: Lymphadenopathy Lungs: Clear to Auscultation, Normal Respiratory Effort Cardiovascular: Regular Rate, Regular Rhythm, No Murmurs GI/Abdominal Exam: Normal Bowel Sounds, Soft, Non-Tender, No Organomegaly, No Distention, No Mass Extremities: Non-Tender, No Pedal Edema, Normal Capillary Refill Peripheral Pulses: 2+: Radial (L), Radial (R) Skin: Warm, Dry Sepsis Event Note - Evaluation Sepsis Screening Result: No Definite Risk - Focused Exam Vital Signs: Vital Signs Temp Pulse Resp BP BP Pulse Ox 09/12/19 08:00 109/64 09/12/19 06:00 35.8 C L 79 18 109/64 98 Date Exam was Performed: 09/12/19 Time Exam was Performed: 17:04 - Problem List & Annotations (1) Sacral decubitus ulcer SNOMED Code(s): 454405857 Code(s): L89.159 - PRESSURE ULCER OF SACRAL REGION, UNSPECIFIED STAGE Status: Acute Current Visit: No Qualifiers: Pressure injury stage: unspecified pressure injury stage Qualified Code(s) : L89.159 - Pressure ulcer of sacral region, unspecified stage (2) Sacral osteomyelitis SNOMED Code(s): 622928510, 298056418 Code(s): M46.28 - OSTEOMYELITIS OF VERTEBRA, SACRAL AND SACROCOCCYGEAL REGION Status: Acute Current Visit: No (3) Adjustment disorder SNOMED Code(s): 74232829 Code(s): F43.20 - ADJUSTMENT DISORDER, UNSPECIFIED Status: Acute Current Visit: Yes Qualifiers: Adjustment disorder type: with depressed mood Qualified Code(s): F43.21 - Adjustment disorder with depressed mood (4) Neurogenic bladder SNOMED Code(s): 957013292 Code(s): N31.9 - NEUROMUSCULAR DYSFUNCTION OF BLADDER, UNSPECIFIED Status: Chronic Current Visit: No (5) History of creation of ostomy SNOMED Code(s): 635405609 Code(s): Z93.9 - ARTIFICIAL OPENING STATUS, UNSPECIFIED Status: Acute Current Visit: No (6) Multiple sclerosis SNOMED Code(s): 50960589 Code(s): G35 - MULTIPLE SCLEROSIS Status: Chronic Current Visit: No (7) Chronic sinusitis SNOMED Code(s): 39068447 Code(s): J32.9 - CHRONIC SINUSITIS, UNSPECIFIED Status: Chronic Current Visit: No (8) Constipation SNOMED Code(s): 15266699 Code(s): K59.00 - CONSTIPATION, UNSPECIFIED Status: Chronic Current Visit : No (9) Hypertension SNOMED Code(s): 27873071 Code(s): I10 - ESSENTIAL (PRIMARY) HYPERTENSION Status: Chronic Current Visit: No (10) Obesity SNOMED Code(s): 103802057, 935466075 Code(s): E66.9 - OBESITY, UNSPECIFIED Status: Chronic Current Visit: No (11) Candidal intertrigo SNOMED Code(s): 391431150 Code(s): B37.2 - CANDIDIASIS OF SKIN AND NAIL Status: Acute Current Visit : Yes - Problem List Review Problem List Initiated/Reviewed/Updated: Yes - Assessment Assessment:: 44 yo male admitted to swing bed for wound cares and IV antibiotics in the setting of a sacral decubitus ulcer complicated by sacral osteomyelitis. Wound is healing well. Antibiotics for the osteomyelitis have been completed. Hospitalization has been complicated by intermittent mood changes as well as dental issues. - Plan Plan:: #1 Sacral Decubitus Ulcer #2 Sacral Osteomyelitis - Continue wound cares as ordered by [facility]. - No longer needs follow-up with surgery. Plastic surgery notes not yet complete for consult re: skin flap. - He will continue follow-up with the wound clinic. - Antibiotics completed, ID comfortable with d/c of therapy, and PICC removed without issue. #3 Adjustment Disorder - Mood has been better further out from having his ocrevus cancelled. - Will continue to monitor for any changes. #4 Neurogenic Bladder #[address] - Suprapubic catheter and ostomy both functioning well with no concerns at this time. - Both to be continued at least until his wound is healed with the suprapubic catheter likely to be continued indefinitely. #6 MS #7 Chronic Sinusitis #8 Constipation #9 Hypertension #10 Obesity - Continue home medications. - Has completed therapies. - Main barrier to discharge at this time is his wound. #11 Candidal Intertrigo - Will treat with desenex powder. Ordered in [employer] and prescription sent to pharmacy via [facility]. Patient will remain on swing bed - anticipate long duration of stay due to need for wound cares and assistance with ADL's without an alternative option at this time. Code status is DNR/DNI - discussed with patient on admission. Patient does not need VTE prophylaxis given he is at his usual functional baseline.
[2019-09-12] MEDS: Acetaminophen 325 MG Tab PO PRN ×2 (13:06→19:22)
[2019-09-13] MEDS: Lisinopril 10 MG Tab (OWN SUPPLY) PO SCH (07:54)
[2019-09-13] MEDS: Fluticasone Propionate Nasal Spray 16 GM Bottle NASBOTH SCH ×2 (07:55→20:03)
[2019-09-13] MEDS: Cyanocobalamin (Vitamin B12) 250 MCG Tab PO SCH ×2 (07:56→20:02)
[2019-09-13] MEDS: Cholecalciferol (Vitamin D3) 25 MCG Tab PO SCH (07:56)
[2019-09-13] MEDS: Multivitamins with Iron/Calcium/Folic Acid/Minerals Tab PO SCH (07:57)
[2019-09-13] MEDS: Acetaminophen 325 MG Tab PO PRN ×2 (07:57→20:07)
[2019-09-13] MEDS: Ascorbic Acid 500 MG Tab PO SCH (07:57)
[2019-09-13] MEDS: Lactobacillus Rhamnosus GG (Probiotic) Cap PO SCH (07:57)
[2019-09-13] MEDS: Miconazole 2% Top Powder 45 GM Container TOP SCH ×2 (08:10→20:02)
[2019-09-14] MEDS: Fluticasone Propionate Nasal Spray 16 GM Bottle NASBOTH SCH ×2 (08:15→20:16)
[2019-09-14] MEDS: Lactobacillus Rhamnosus GG (Probiotic) Cap PO SCH (08:16)
[2019-09-14] MEDS: Lisinopril 10 MG Tab (OWN SUPPLY) PO SCH (08:16)
[2019-09-14] MEDS: Miconazole 2% Top Powder 45 GM Container TOP SCH ×2 (08:16→20:16)
[2019-09-14] MEDS: Ascorbic Acid 500 MG Tab PO SCH (08:17)
[2019-09-14] MEDS: Cyanocobalamin (Vitamin B12) 250 MCG Tab PO SCH ×2 (08:17→20:17)
[2019-09-14] MEDS: Cholecalciferol (Vitamin D3) 25 MCG Tab PO SCH (08:17)
[2019-09-14] MEDS: Multivitamins with Iron/Calcium/Folic Acid/Minerals Tab PO SCH (08:17)
[2019-09-14] MEDS: Acetaminophen 325 MG Tab PO PRN (11:41)
[2019-09-15] MEDS: Miconazole 2% Top Powder 45 GM Container TOP SCH ×2 (09:07→19:50)
[2019-09-15] MEDS: Lisinopril 10 MG Tab (OWN SUPPLY) PO SCH (09:08)
[2019-09-15] MEDS: Fluticasone Propionate Nasal Spray 16 GM Bottle NASBOTH SCH ×2 (09:08→19:54)
[2019-09-15] MEDS: Cholecalciferol (Vitamin D3) 25 MCG Tab PO SCH (09:09)
[2019-09-15] MEDS: Cyanocobalamin (Vitamin B12) 250 MCG Tab PO SCH ×2 (09:09→19:49)
[2019-09-15] MEDS: Ascorbic Acid 500 MG Tab PO SCH (09:10)
[2019-09-15] MEDS: Multivitamins with Iron/Calcium/Folic Acid/Minerals Tab PO SCH (09:10)
[2019-09-15] MEDS: Lactobacillus Rhamnosus GG (Probiotic) Cap PO SCH (09:10)
[2019-09-15] MEDS: Acetaminophen 325 MG Tab PO PRN ×2 (12:45→19:49)
[2019-09-16] MEDS: Fluticasone Propionate Nasal Spray 16 GM Bottle NASBOTH SCH ×2 (07:43→20:07)
[2019-09-16] MEDS: Miconazole 2% Top Powder 45 GM Container TOP SCH ×2 (07:43→20:06)
[2019-09-16] MEDS: Ascorbic Acid 500 MG Tab PO SCH (07:44)
[2019-09-16] MEDS: Multivitamins with Iron/Calcium/Folic Acid/Minerals Tab PO SCH (07:44)
[2019-09-16] MEDS: Lactobacillus Rhamnosus GG (Probiotic) Cap PO SCH (07:44)
[2019-09-16] MEDS: Cyanocobalamin (Vitamin B12) 250 MCG Tab PO SCH ×2 (07:44→20:08)
[2019-09-16] MEDS: Cholecalciferol (Vitamin D3) 25 MCG Tab PO SCH (07:44)
[2019-09-16] MEDS: Acetaminophen 325 MG Tab PO PRN ×3 (07:47→22:09)
[2019-09-16] MEDS: Lisinopril 10 MG Tab (OWN SUPPLY) PO SCH (07:51)
--- NOTE | 2019-09-16 17:43 | PCM.SN.2 ---
- Free Text/Narrative Note: S: Contacted by nurse that wound looked and smelled different than 1 week ago. New necrotic tissue at the base with increased tunneling and a foul odor. Patient has not felt well today in general but states he feels about the same he always does. No fever or chills. No pain. No lightheadedness. O: Vitals reviewed. Wound bed looks mostly clean still with visualization of the sacrum but he does have some necrotic tissue at the 3 o'clock aspect. A/P: #1 Chronic sacral wound - Will check lab this evening to include CBC, CRP, and ESR. - Will hold off on antibiotics for now unless indicated by labs. - Will continue to monitor for changes over the next few days. - Wound appointment is scheduled for 09/26. No major changes for wound care until that time. - BP's on the lower side but patient is asymptomatic. Therefore, will hold off on fluids but will hold his BP medication.
[2019-09-16] MEDS ORDERED: Piperacillin/Tazobactam 4.5 GM in Sodium Chloride 0.9% 100 ML IV ONE (19:15)
[2019-09-16] MEDS: Piperacillin/Tazobactam 3.375 GM in Sodium Chloride 0.9% 100 ML IV SCH (23:52)
[2019-09-17] MEDS: Piperacillin/Tazobactam 3.375 GM in Sodium Chloride 0.9% 100 ML IV SCH ×3 (08:19→23:23)
[2019-09-17] MEDS: Cyanocobalamin (Vitamin B12) 250 MCG Tab PO SCH ×2 (08:25→20:50)
[2019-09-17] MEDS: Lactobacillus Rhamnosus GG (Probiotic) Cap PO SCH (08:25)
[2019-09-17] MEDS: Cholecalciferol (Vitamin D3) 25 MCG Tab PO SCH (08:25)
[2019-09-17] MEDS: Multivitamins with Iron/Calcium/Folic Acid/Minerals Tab PO SCH (08:26)
[2019-09-17] MEDS: Acetaminophen 325 MG Tab PO PRN ×2 (08:26→20:50)
[2019-09-17] MEDS: Ascorbic Acid 500 MG Tab PO SCH (08:26)
[2019-09-17] MEDS: Miconazole 2% Top Powder 45 GM Container TOP SCH ×2 (08:30→20:56)
[2019-09-17] MEDS: Fluticasone Propionate Nasal Spray 16 GM Bottle NASBOTH SCH ×2 (08:31→20:50)
--- NOTE | 2019-09-17 09:31 | PCM.SN.2 ---
- Free Text/Narrative Note: Patient's labs came back elevated last night and the zosyn was resumed. Message sent to ID and wound care this morning. Wound clinic [employer] recommends d/c of the wound vac and instead to do wet to dry dressings with acetic acid BID until he sees her on 09/26. Orders given to nursing. Will determine final antibiotic plan once I hear back from ID.
[2019-09-17] MEDS: Sodium Chloride 0.9% 10 ML Syringe IV PRN (15:39)
[2019-09-18] MEDS: Cyanocobalamin (Vitamin B12) 250 MCG Tab PO SCH ×2 (08:39→20:21)
[2019-09-18] MEDS: Fluticasone Propionate Nasal Spray 16 GM Bottle NASBOTH SCH ×2 (08:40→20:52)
[2019-09-18] MEDS: Cholecalciferol (Vitamin D3) 25 MCG Tab PO SCH (08:40)
[2019-09-18] MEDS: Ascorbic Acid 500 MG Tab PO SCH (08:40)
[2019-09-18] MEDS: Lactobacillus Rhamnosus GG (Probiotic) Cap PO SCH (08:40)
[2019-09-18] MEDS: Multivitamins with Iron/Calcium/Folic Acid/Minerals Tab PO SCH (08:40)
[2019-09-18] MEDS: Miconazole 2% Top Powder 45 GM Container TOP SCH ×2 (08:41→20:52)
[2019-09-18] MEDS: Piperacillin/Tazobactam 3.375 GM in Sodium Chloride 0.9% 100 ML IV SCH ×3 (08:44→23:05)
[2019-09-18] MEDS: Acetaminophen 325 MG Tab PO PRN ×2 (08:48→20:19)
[2019-09-19] MEDS: Lactobacillus Rhamnosus GG (Probiotic) Cap PO SCH (08:01)
[2019-09-19] MEDS: Ascorbic Acid 500 MG Tab PO SCH (08:01)
[2019-09-19] MEDS: Fluticasone Propionate Nasal Spray 16 GM Bottle NASBOTH SCH ×2 (08:01→20:12)
[2019-09-19] MEDS: Cyanocobalamin (Vitamin B12) 250 MCG Tab PO SCH ×2 (08:02→20:12)
[2019-09-19] MEDS: Cholecalciferol (Vitamin D3) 25 MCG Tab PO SCH (08:02)
[2019-09-19] MEDS: Multivitamins with Iron/Calcium/Folic Acid/Minerals Tab PO SCH (08:02)
[2019-09-19] MEDS: Acetaminophen 325 MG Tab PO PRN ×2 (08:03→20:15)
[2019-09-19] MEDS: Miconazole 2% Top Powder 45 GM Container TOP SCH ×2 (08:05→20:12)
[2019-09-19] MEDS: Piperacillin/Tazobactam 3.375 GM in Sodium Chloride 0.9% 100 ML IV SCH ×3 (08:07→23:07)
[2019-09-20] MEDS: Lactobacillus Rhamnosus GG (Probiotic) Cap PO SCH (08:23)
[2019-09-20] MEDS: Ascorbic Acid 500 MG Tab PO SCH (08:24)
[2019-09-20] MEDS: Acetaminophen 325 MG Tab PO PRN ×2 (08:24→20:13)
[2019-09-20] MEDS: Cyanocobalamin (Vitamin B12) 250 MCG Tab PO SCH ×2 (08:24→20:12)
[2019-09-20] MEDS: Cholecalciferol (Vitamin D3) 25 MCG Tab PO SCH (08:24)
[2019-09-20] MEDS: Multivitamins with Iron/Calcium/Folic Acid/Minerals Tab PO SCH (08:24)
[2019-09-20] MEDS: Piperacillin/Tazobactam 3.375 GM in Sodium Chloride 0.9% 100 ML IV SCH ×2 (08:26→16:25)
[2019-09-20] MEDS: Fluticasone Propionate Nasal Spray 16 GM Bottle NASBOTH SCH ×2 (08:27→20:13)
[2019-09-20] MEDS: Miconazole 2% Top Powder 45 GM Container TOP SCH ×2 (08:28→20:13)
[2019-09-20] MEDS: Sodium Chloride 0.9% 10 ML Syringe IV PRN (20:15)
[2019-09-21] MEDS: Fluticasone Propionate Nasal Spray 16 GM Bottle NASBOTH SCH ×2 (09:13→20:16)
[2019-09-21] MEDS: Multivitamins with Iron/Calcium/Folic Acid/Minerals Tab PO SCH (09:14)
[2019-09-21] MEDS: Acetaminophen 325 MG Tab PO PRN ×2 (09:14→20:16)
[2019-09-21] MEDS: Cyanocobalamin (Vitamin B12) 250 MCG Tab PO SCH ×2 (09:15→20:16)
[2019-09-21] MEDS: Ascorbic Acid 500 MG Tab PO SCH (09:16)
[2019-09-21] MEDS: Lactobacillus Rhamnosus GG (Probiotic) Cap PO SCH (09:16)
[2019-09-21] MEDS: Cholecalciferol (Vitamin D3) 25 MCG Tab PO SCH (09:16)
[2019-09-21] MEDS: Miconazole 2% Top Powder 45 GM Container TOP SCH ×2 (09:17→20:16)
[2019-09-22] MEDS: Fluticasone Propionate Nasal Spray 16 GM Bottle NASBOTH SCH ×2 (08:15→21:03)
[2019-09-22] MEDS: Ascorbic Acid 500 MG Tab PO SCH (08:19)
[2019-09-22] MEDS: Lactobacillus Rhamnosus GG (Probiotic) Cap PO SCH (08:19)
[2019-09-22] MEDS: Acetaminophen 325 MG Tab PO PRN ×2 (08:19→21:09)
[2019-09-22] MEDS: Cyanocobalamin (Vitamin B12) 250 MCG Tab PO SCH ×2 (08:19→21:02)
[2019-09-22] MEDS: Multivitamins with Iron/Calcium/Folic Acid/Minerals Tab PO SCH (08:19)
[2019-09-22] MEDS: Cholecalciferol (Vitamin D3) 25 MCG Tab PO SCH (08:19)
[2019-09-22] MEDS: Miconazole 2% Top Powder 45 GM Container TOP SCH ×2 (08:22→21:02)
[2019-09-23] MEDS: Cyanocobalamin (Vitamin B12) 250 MCG Tab PO SCH ×2 (08:37→21:20)
[2019-09-23] MEDS: Cholecalciferol (Vitamin D3) 25 MCG Tab PO SCH (08:37)
[2019-09-23] MEDS: Lactobacillus Rhamnosus GG (Probiotic) Cap PO SCH (08:37)
[2019-09-23] MEDS: Multivitamins with Iron/Calcium/Folic Acid/Minerals Tab PO SCH (08:37)
[2019-09-23] MEDS: Ascorbic Acid 500 MG Tab PO SCH (08:37)
[2019-09-23] MEDS: Miconazole 2% Top Powder 45 GM Container TOP SCH ×2 (08:37→21:21)
[2019-09-23] MEDS: Fluticasone Propionate Nasal Spray 16 GM Bottle NASBOTH SCH ×2 (08:38→21:22)
[2019-09-23] MEDS: Acetaminophen 325 MG Tab PO PRN ×2 (08:42→21:20)
[2019-09-24] MEDS: Cyanocobalamin (Vitamin B12) 250 MCG Tab PO SCH ×2 (08:59→20:29)
[2019-09-24] MEDS: Fluticasone Propionate Nasal Spray 16 GM Bottle NASBOTH SCH ×2 (08:59→20:28)
[2019-09-24] MEDS: Cholecalciferol (Vitamin D3) 25 MCG Tab PO SCH (08:59)
[2019-09-24] MEDS: Ascorbic Acid 500 MG Tab PO SCH (08:59)
[2019-09-24] MEDS: Multivitamins with Iron/Calcium/Folic Acid/Minerals Tab PO SCH (08:59)
[2019-09-24] MEDS: Lactobacillus Rhamnosus GG (Probiotic) Cap PO SCH (08:59)
[2019-09-24] MEDS: Miconazole 2% Top Powder 45 GM Container TOP SCH ×2 (08:59→20:32)
[2019-09-24] MEDS: Acetaminophen 325 MG Tab PO PRN ×3 (09:35→20:29)
[2019-09-25] MEDS: Cholecalciferol (Vitamin D3) 25 MCG Tab PO SCH (08:08)
[2019-09-25] MEDS: Ascorbic Acid 500 MG Tab PO SCH (08:08)
[2019-09-25] MEDS: Cyanocobalamin (Vitamin B12) 250 MCG Tab PO SCH ×2 (08:08→19:10)
[2019-09-25] MEDS: Multivitamins with Iron/Calcium/Folic Acid/Minerals Tab PO SCH (08:09)
[2019-09-25] MEDS: Acetaminophen 325 MG Tab PO PRN ×2 (08:09→19:11)
[2019-09-25] MEDS: Lactobacillus Rhamnosus GG (Probiotic) Cap PO SCH (08:09)
[2019-09-25] MEDS: Fluticasone Propionate Nasal Spray 16 GM Bottle NASBOTH SCH ×2 (08:11→19:12)
[2019-09-25] MEDS: Miconazole 2% Top Powder 45 GM Container TOP SCH ×2 (08:11→19:12)
[2019-09-26] MEDS: Acetaminophen 325 MG Tab PO PRN ×4 (03:29→20:26)
[2019-09-26] MEDS: Fluticasone Propionate Nasal Spray 16 GM Bottle NASBOTH SCH ×2 (08:53→19:17)
[2019-09-26] MEDS: Ascorbic Acid 500 MG Tab PO SCH (08:54)
[2019-09-26] MEDS: Cyanocobalamin (Vitamin B12) 250 MCG Tab PO SCH ×2 (08:54→19:17)
[2019-09-26] MEDS: Miconazole 2% Top Powder 45 GM Container TOP SCH ×2 (08:54→19:20)
[2019-09-26] MEDS: Multivitamins with Iron/Calcium/Folic Acid/Minerals Tab PO SCH (08:54)
[2019-09-26] MEDS: Cholecalciferol (Vitamin D3) 25 MCG Tab PO SCH (08:55)
[2019-09-26] MEDS: Lactobacillus Rhamnosus GG (Probiotic) Cap PO SCH (08:55)
[2019-09-27] MEDS: Acetaminophen 325 MG Tab PO PRN ×3 (04:06→20:59)
[2019-09-27] MEDS: Cyanocobalamin (Vitamin B12) 250 MCG Tab PO SCH ×2 (08:43→20:53)
[2019-09-27] MEDS: Fluticasone Propionate Nasal Spray 16 GM Bottle NASBOTH SCH ×2 (08:43→20:53)
[2019-09-27] MEDS: Miconazole 2% Top Powder 45 GM Container TOP SCH ×2 (08:43→20:51)
[2019-09-27] MEDS: Multivitamins with Iron/Calcium/Folic Acid/Minerals Tab PO SCH (12:52)
[2019-09-27] MEDS: Ascorbic Acid 500 MG Tab PO SCH (12:52)
[2019-09-27] MEDS: Lactobacillus Rhamnosus GG (Probiotic) Cap PO SCH (12:52)
[2019-09-27] MEDS: Cholecalciferol (Vitamin D3) 25 MCG Tab PO SCH (12:53)
[2019-09-28] MEDS: Fluticasone Propionate Nasal Spray 16 GM Bottle NASBOTH SCH ×2 (07:54→21:28)
[2019-09-28] MEDS: Miconazole 2% Top Powder 45 GM Container TOP SCH ×2 (07:55→21:28)
[2019-09-28] MEDS: Acetaminophen 325 MG Tab PO PRN ×3 (07:55→21:29)
[2019-09-28] MEDS: Cyanocobalamin (Vitamin B12) 250 MCG Tab PO SCH ×2 (07:56→21:29)
[2019-09-28] MEDS: Multivitamins with Iron/Calcium/Folic Acid/Minerals Tab PO SCH (07:56)
[2019-09-28] MEDS: Ascorbic Acid 500 MG Tab PO SCH (07:56)
[2019-09-28] MEDS: Lactobacillus Rhamnosus GG (Probiotic) Cap PO SCH (07:56)
[2019-09-28] MEDS: Cholecalciferol (Vitamin D3) 25 MCG Tab PO SCH (07:56)
[2019-09-29] MEDS: Fluticasone Propionate Nasal Spray 16 GM Bottle NASBOTH SCH ×2 (08:21→20:16)
[2019-09-29] MEDS: Acetaminophen 325 MG Tab PO PRN ×2 (08:23→18:43)
[2019-09-29] MEDS: Ascorbic Acid 500 MG Tab PO SCH (08:25)
[2019-09-29] MEDS: Multivitamins with Iron/Calcium/Folic Acid/Minerals Tab PO SCH (08:25)
[2019-09-29] MEDS: Lactobacillus Rhamnosus GG (Probiotic) Cap PO SCH (08:25)
[2019-09-29] MEDS: Cyanocobalamin (Vitamin B12) 250 MCG Tab PO SCH ×2 (08:25→20:16)
[2019-09-29] MEDS: Cholecalciferol (Vitamin D3) 25 MCG Tab PO SCH (08:25)
[2019-09-29] MEDS: Miconazole 2% Top Powder 45 GM Container TOP SCH (08:25)
--- NOTE | 2019-09-29 09:57 | PCM.SN.2 ---
- Free Text/Narrative Note: nurse reportrted suprapubic catheter slipped out during the night because of balloon breakage . Staff not able to reintroduce catheter through maturing tract. Pt states Condom cath will not stay on, will trr Gutierrez cath overnight and request Int. Rad appt for eliot
--- NOTE | 2019-09-29 11:13 | PCM.SN.2 ---
- Free Text/Narrative Note: Dr Quintanilla has been contacted. He will ask IR schedulers to call in AM with appt.
[2019-09-30] MEDS: Miconazole 2% Top Powder 45 GM Container TOP SCH ×3 (07:17→19:45)
[2019-09-30] MEDS: Acetaminophen 325 MG Tab PO PRN ×3 (08:16→22:45)
[2019-09-30] MEDS: Cholecalciferol (Vitamin D3) 25 MCG Tab PO SCH (08:16)
[2019-09-30] MEDS: Multivitamins with Iron/Calcium/Folic Acid/Minerals Tab PO SCH (08:16)
[2019-09-30] MEDS: Lactobacillus Rhamnosus GG (Probiotic) Cap PO SCH (08:17)
[2019-09-30] MEDS: Ascorbic Acid 500 MG Tab PO SCH (08:17)
[2019-09-30] MEDS: Cyanocobalamin (Vitamin B12) 250 MCG Tab PO SCH ×2 (08:17→19:46)
[2019-09-30] MEDS: Fluticasone Propionate Nasal Spray 16 GM Bottle NASBOTH SCH ×2 (08:18→19:45)
[2019-10-01] MEDS: Acetaminophen 325 MG Tab PO PRN ×2 (10:13→21:51)
[2019-10-01] MEDS: Cholecalciferol (Vitamin D3) 25 MCG Tab PO SCH (10:13)
[2019-10-01] MEDS: Lactobacillus Rhamnosus GG (Probiotic) Cap PO SCH (10:13)
[2019-10-01] MEDS: Cyanocobalamin (Vitamin B12) 250 MCG Tab PO SCH ×2 (10:15→21:50)
[2019-10-01] MEDS: Ascorbic Acid 500 MG Tab PO SCH (10:15)
[2019-10-01] MEDS: Multivitamins with Iron/Calcium/Folic Acid/Minerals Tab PO SCH (10:15)
[2019-10-01] MEDS: Fluticasone Propionate Nasal Spray 16 GM Bottle NASBOTH SCH ×2 (10:15→21:49)
[2019-10-01] MEDS: Miconazole 2% Top Powder 45 GM Container TOP SCH ×2 (10:20→21:52)
[2019-10-01] MEDS: Zinc (Zinc Gluconate) 50 MG Tab PO SCH (21:50)
[2019-10-01] MEDS: Baclofen 10 MG Tab PO SCH (21:56)
[2019-10-02] MEDS: Multivitamins with Iron/Calcium/Folic Acid/Minerals Tab PO SCH (08:33)
[2019-10-02] MEDS: Cholecalciferol (Vitamin D3) 25 MCG Tab PO SCH (08:33)
[2019-10-02] MEDS: Fluticasone Propionate Nasal Spray 16 GM Bottle NASBOTH SCH ×2 (08:33→20:36)
[2019-10-02] MEDS: Ascorbic Acid 500 MG Tab PO SCH (08:33)
[2019-10-02] MEDS: Baclofen 10 MG Tab PO SCH ×3 (08:33→20:37)
[2019-10-02] MEDS: Zinc (Zinc Gluconate) 50 MG Tab PO SCH (08:33)
[2019-10-02] MEDS: Lactobacillus Rhamnosus GG (Probiotic) Cap PO SCH (08:33)
[2019-10-02] MEDS: Cyanocobalamin (Vitamin B12) 250 MCG Tab PO SCH ×2 (08:33→20:36)
[2019-10-02] MEDS: Miconazole 2% Top Powder 45 GM Container TOP SCH ×2 (08:33→20:37)
[2019-10-02] MEDS: Acetaminophen 325 MG Tab PO PRN (20:38)
[2019-10-03] MEDS: Ascorbic Acid 500 MG Tab PO SCH (07:30)
[2019-10-03] MEDS: Zinc (Zinc Gluconate) 50 MG Tab PO SCH (07:30)
[2019-10-03] MEDS: Cholecalciferol (Vitamin D3) 25 MCG Tab PO SCH (07:30)
[2019-10-03] MEDS: Cyanocobalamin (Vitamin B12) 250 MCG Tab PO SCH ×2 (07:30→21:41)
[2019-10-03] MEDS: Baclofen 10 MG Tab PO SCH ×3 (07:30→21:41)
[2019-10-03] MEDS: Multivitamins with Iron/Calcium/Folic Acid/Minerals Tab PO SCH (07:30)
[2019-10-03] MEDS: Lactobacillus Rhamnosus GG (Probiotic) Cap PO SCH (07:31)
[2019-10-03] MEDS: Miconazole 2% Top Powder 45 GM Container TOP SCH ×2 (07:31→21:39)
[2019-10-03] MEDS: Fluticasone Propionate Nasal Spray 16 GM Bottle NASBOTH SCH ×2 (07:31→21:39)
[2019-10-03] MEDS: Acetaminophen 325 MG Tab PO PRN ×2 (13:59→21:43)
[2019-10-04] MEDS: Multivitamins with Iron/Calcium/Folic Acid/Minerals Tab PO SCH (07:28)
[2019-10-04] MEDS: Miconazole 2% Top Powder 45 GM Container TOP SCH ×2 (07:29→19:27)
[2019-10-04] MEDS: Cholecalciferol (Vitamin D3) 25 MCG Tab PO SCH (07:29)
[2019-10-04] MEDS: Zinc (Zinc Gluconate) 50 MG Tab PO SCH (07:29)
[2019-10-04] MEDS: Fluticasone Propionate Nasal Spray 16 GM Bottle NASBOTH SCH ×2 (07:29→19:27)
[2019-10-04] MEDS: Lactobacillus Rhamnosus GG (Probiotic) Cap PO SCH (07:29)
[2019-10-04] MEDS: Cyanocobalamin (Vitamin B12) 250 MCG Tab PO SCH ×2 (07:29→19:26)
[2019-10-04] MEDS: Baclofen 10 MG Tab PO SCH ×3 (07:29→19:26)
[2019-10-04] MEDS: Ascorbic Acid 500 MG Tab PO SCH (07:29)
[2019-10-04] MEDS: Acetaminophen 325 MG Tab PO PRN ×2 (12:21→19:26)
[2019-10-05] MEDS: Lactobacillus Rhamnosus GG (Probiotic) Cap PO SCH (08:21)
[2019-10-05] MEDS: Cholecalciferol (Vitamin D3) 25 MCG Tab PO SCH (08:21)
[2019-10-05] MEDS: Baclofen 10 MG Tab PO SCH ×3 (08:21→19:30)
[2019-10-05] MEDS: Zinc (Zinc Gluconate) 50 MG Tab PO SCH (08:22)
[2019-10-05] MEDS: Ascorbic Acid 500 MG Tab PO SCH (08:22)
[2019-10-05] MEDS: Cyanocobalamin (Vitamin B12) 250 MCG Tab PO SCH ×2 (08:22→19:30)
[2019-10-05] MEDS: Multivitamins with Iron/Calcium/Folic Acid/Minerals Tab PO SCH (08:22)
[2019-10-05] MEDS: Acetaminophen 325 MG Tab PO PRN ×3 (08:22→19:31)
[2019-10-05] MEDS: Miconazole 2% Top Powder 45 GM Container TOP SCH ×2 (08:23→19:32)
[2019-10-05] MEDS: Fluticasone Propionate Nasal Spray 16 GM Bottle NASBOTH SCH ×2 (08:23→19:30)
[2019-10-06] MEDS: Miconazole 2% Top Powder 45 GM Container TOP SCH ×2 (07:26→20:01)
[2019-10-06] MEDS: Ascorbic Acid 500 MG Tab PO SCH (07:26)
[2019-10-06] MEDS: Zinc (Zinc Gluconate) 50 MG Tab PO SCH (07:26)
[2019-10-06] MEDS: Cyanocobalamin (Vitamin B12) 250 MCG Tab PO SCH ×2 (07:26→19:59)
[2019-10-06] MEDS: Multivitamins with Iron/Calcium/Folic Acid/Minerals Tab PO SCH (07:26)
[2019-10-06] MEDS: Acetaminophen 325 MG Tab PO PRN ×3 (07:26→20:00)
[2019-10-06] MEDS: Lactobacillus Rhamnosus GG (Probiotic) Cap PO SCH (07:26)
[2019-10-06] MEDS: Cholecalciferol (Vitamin D3) 25 MCG Tab PO SCH (07:26)
[2019-10-06] MEDS: Fluticasone Propionate Nasal Spray 16 GM Bottle NASBOTH SCH ×2 (07:27→19:59)
[2019-10-06] MEDS: Baclofen 10 MG Tab PO SCH ×3 (07:27→19:59)
[2019-10-07] MEDS: Acetaminophen 325 MG Tab PO PRN ×2 (06:04→19:16)
[2019-10-07] MEDS: Multivitamins with Iron/Calcium/Folic Acid/Minerals Tab PO SCH (09:04)
[2019-10-07] MEDS: Cyanocobalamin (Vitamin B12) 250 MCG Tab PO SCH ×2 (09:04→19:16)
[2019-10-07] MEDS: Miconazole 2% Top Powder 45 GM Container TOP SCH ×2 (09:04→19:15)
[2019-10-07] MEDS: Fluticasone Propionate Nasal Spray 16 GM Bottle NASBOTH SCH ×2 (09:04→19:15)
[2019-10-07] MEDS: Baclofen 10 MG Tab PO SCH ×3 (09:04→19:16)
[2019-10-07] MEDS: Ascorbic Acid 500 MG Tab PO SCH (09:04)
[2019-10-07] MEDS: Lactobacillus Rhamnosus GG (Probiotic) Cap PO SCH (09:04)
[2019-10-07] MEDS: Zinc (Zinc Gluconate) 50 MG Tab PO SCH (09:05)
[2019-10-07] MEDS: Cholecalciferol (Vitamin D3) 25 MCG Tab PO SCH (09:05)
[2019-10-08 07:08] LABS: HEMOGLOBIN A1C 5.5 % (<5.7)
[2019-10-08] MEDS: Zinc (Zinc Gluconate) 50 MG Tab PO SCH (08:20)
[2019-10-08] MEDS: Baclofen 10 MG Tab PO SCH ×3 (08:20→21:39)
[2019-10-08] MEDS: Cyanocobalamin (Vitamin B12) 250 MCG Tab PO SCH ×2 (08:20→21:38)
[2019-10-08] MEDS: Ascorbic Acid 500 MG Tab PO SCH (08:20)
[2019-10-08] MEDS: Lactobacillus Rhamnosus GG (Probiotic) Cap PO SCH (08:20)
[2019-10-08] MEDS: Cholecalciferol (Vitamin D3) 25 MCG Tab PO SCH (08:20)
[2019-10-08] MEDS: Fluticasone Propionate Nasal Spray 16 GM Bottle NASBOTH SCH ×2 (08:20→21:30)
[2019-10-08] MEDS: Multivitamins with Iron/Calcium/Folic Acid/Minerals Tab PO SCH (08:21)
[2019-10-08] MEDS: Miconazole 2% Top Powder 45 GM Container TOP SCH ×2 (08:21→21:30)
--- NOTE | 2019-10-08 09:19 | PCM.SN.2 ---
- Free Text/Narrative Note: WBC elevated. Nurse notes increasingly foul odor from dressing changes over the past 24-48 hours. No fever. Given elevation in WBC and change in odor, will do another 5 day course of antibiotics. Augmentin ordered. He will continue with wound cares as ordered.
[2019-10-08] MEDS: Amoxicillin/Clavulanate K 875-125 MG Tab PO SCH ×2 (11:02→18:04)
[2019-10-08] MEDS: Acetaminophen 325 MG Tab PO PRN ×2 (11:03→21:40)
[2019-10-09] MEDS: Fluticasone Propionate Nasal Spray 16 GM Bottle NASBOTH SCH ×2 (08:50→20:45)
[2019-10-09] MEDS: Miconazole 2% Top Powder 45 GM Container TOP SCH ×2 (08:50→20:49)
[2019-10-09] MEDS: Zinc (Zinc Gluconate) 50 MG Tab PO SCH (08:51)
[2019-10-09] MEDS: Amoxicillin/Clavulanate K 875-125 MG Tab PO SCH ×2 (08:51→17:47)
[2019-10-09] MEDS: Ascorbic Acid 500 MG Tab PO SCH (08:51)
[2019-10-09] MEDS: Cholecalciferol (Vitamin D3) 25 MCG Tab PO SCH (08:51)
[2019-10-09] MEDS: Multivitamins with Iron/Calcium/Folic Acid/Minerals Tab PO SCH (08:52)
[2019-10-09] MEDS: Lactobacillus Rhamnosus GG (Probiotic) Cap PO SCH (08:52)
[2019-10-09] MEDS: Baclofen 10 MG Tab PO SCH ×3 (08:52→20:46)
[2019-10-09] MEDS: Cyanocobalamin (Vitamin B12) 250 MCG Tab PO SCH ×2 (08:52→20:48)
--- NOTE | 2019-10-09 09:13 | PCM.PN ---
- General Info Date of Service: 10/09/19 Subjective Update: 44 yo male admitted on swing bed for wound cares and assistance with ADL's seen today for swing bed follow-up. He states that he is doing "ok." He is frustrated that he is still here and would like to be transitioning to a different place of living. He is also concerned that plastics wants to do the surgery the same day as his consult since he feels he will need to consider this after he knows more before proceeding with the surgery. He denies feeling depressed and continues to state that he is just frustrated with his situation. He was started on antibiotics again yesterday due to leukocytosis and foul odor from his wound. He has had no fever. He was started on baclofen for spasticity and does not feel this is really doing much of anything for him. He has not had any side effects. - Review of Systems General: Reports: No Symptoms HEENT: Reports: No Symptoms Pulmonary: Reports: No Symptoms Cardiovascular: Reports: No Symptoms Gastrointestinal: Reports: No Symptoms Genitourinary: Reports: No Symptoms Musculoskeletal: Reports: Arm Pain, Leg Pain Skin: Reports: No Symptoms - Patient Data Vitals - Most Recent: Last Vital Signs Temp 36.8 C 10/09/19 05:39 Pulse 87 10/09/19 05:39 Resp 17 10/09/19 05:39 BP 105/70 10/09/19 05:39 Pulse Ox 99 10/09/19 05:39 Weight - Most Recent: 130.635 kg I&O - Last 24 Hours: Intake & Output 10/08/19 10/09/19 10/09/19 22:59 06:59 14:59 Intake Total 40 220 Output Total 1500 1175 Balance -1460 -1175 220 Med Orders - Current: Current Medications Acetaminophen (Tylenol) 650 mg PO Q4H PRN PRN Reason: Pain (mild 1-3) Last Admin: 10/08/19 21:40 Dose: 650 mg Documented by: Amoxicillin/Clavulanate Potassium (Augmentin 875 Mg/125 Mg) 1 tab PO BIDMEALS [facility] Last Admin: 10/09/19 08:51 Dose: 1 tab Documented by: Ascorbic Acid (Vitamin C) 500 mg PO DAILY [facility] Last Admin: 10/09/19 08:51 Dose: 500 mg Documented by: Baclofen (Lioresal) 5 mg PO TID [facility] Last Admin: 10/09/19 08:52 Dose: 5 mg Documented by: Cholecalciferol (Vitamin D3) 100 mcg PO DAILY [facility] Last Admin: 10/09/19 08:51 Dose: 100 mcg Documented by: Cyanocobalamin (Vitamin B12) 500 mcg PO BID [facility] Last Admin: 10/09/19 08:52 Dose: 500 mcg Documented by: Fluticasone Propionate (Flonase) 0 gm NASBOTH BID [facility] Last Admin: 10/09/19 08:50 Dose: 1 spray Documented by: Lactobacillus Rhamnosus (Culturelle) 1 cap PO DAILY [facility] Last Admin: 10/09/19 08:52 Dose: 1 cap Documented by: Miconazole (Desenex 2%) 0 gm TOP BID [facility] Last Admin: 10/09/19 08:50 Dose: 1 applic Documented by: Multivitamins/Minerals (Thera M Plus) 1 tab PO DAILY [facility] Last Admin: 10/09/19 08:52 Dose: 1 tab Documented by: Naproxen (Naproxen Sodium) 220 mg PO Q12H PRN PRN Reason: Pain Last Admin: 10/03/19 21:41 Dose: 220 mg Documented by: Senna/Docusate Sodium (Senna Plus) 2 tab PO BEDTIME PRN PRN Reason: Constipation Last Admin: 10/08/19 21:38 Dose: 2 tab Documented by: Sodium Chloride (Saline Flush) 10 ml IV ASDIRECTED PRN PRN Reason: Keep Vein Open Last Admin: 09/20/19 20:15 Dose: 10 ml Documented by: Zinc Gluconate (Zinc) 50 mg PO DAILY [facility] Last Admin: 10/09/19 08:51 Dose: 50 mg Documented by: Discontinued Medications Fluticasone Propionate (Flonase) 0 gm NASBOTH BID [facility] Stop: 08/28/19 21:00 Last Admin: 08/28/19 19:31 Dose: 1 spr Documented by: Fluticasone Propionate (Flonase) 0 gm NASBOTH BID [facility] Last Admin: 09/18/19 08:40 Dose: 1 spray Documented by: Heparin Sodium (Porcine) (Heparin Lock Flush 100 Units/Ml) 300 unit IVPUSH Q8H [facility] Last Admin: 07/22/19 13:01 Dose: 300 unit Documented by: Heparin Sodium (Porcine) (Heparin Lock Flush 100 Units/Ml) 300 unit IVPUSH ASDIRECTED PRN PRN Reason: Keep Vein Open Last Admin: 08/29/19 17:43 Dose: 300 unit Documented by: Heparin Sodium (Porcine) (Heparin Lock Flush 100 Units/Ml) 300 unit IVPUSH Q12H [facility] Last Admin: 09/01/19 08:45 Dose: Not Given Documented by: Heparin Sodium (Porcine) (Heparin Lock Flush 100 Units/Ml) 300 unit IVPUSH Q12H [facility] Last Admin: 09/01/19 08:45 Dose: Not Given Documented by: Heparin Sodium (Porcine) (Heparin Lock Flush 100 Units/Ml) 300 unit IVPUSH Q8H [facility] Last Admin: 08/28/19 19:29 Dose: 300 unit Documented by: Heparin Sodium (Porcine) (Heparin Lock Flush 100 Units/Ml) 300 unit IVPUSH Q12HR [facility] Last Admin: 09/01/19 08:45 Dose: Not Given Documented by: Piperacillin Sod/Tazobactam (Sod 4.5 gm/ Sodium Chloride) 100 mls @ 25 mls/hr IV Q8H [facility] Last Admin: 07/20/19 08:20 Dose: Not Given Documented by: Piperacillin Sod/Tazobactam (Sod 4.5 gm/ Sodium Chloride) 100 mls @ 25 mls/hr IV Q8H [facility] Stop: 08/28/19 17:00 Last Admin: 08/28/19 16:05 Dose: 25 mls/hr Documented by: Methylprednisolone Sodium Succinate 1,000 mg/ Sodium Chloride 108 mls @ 200 mls/hr IV DAILY [facility] Stop: 08/31/19 08:01 Last Admin: 08/31/19 08:55 Dose: 200 mls/hr Documented by: Piperacillin Sod/Tazobactam (Sod 4.5 gm/ Sodium Chloride) 100 mls @ 200 mls/hr IV ONETIME ONE Stop: 09/16/19 19:44 Last Admin: 09/16/19 19:38 Dose: 200 mls/hr Documented by: Piperacillin Sod/Tazobactam (Sod 3.375 gm/ Sodium Chloride) 100 mls @ 25 mls/hr IV Q8H [facility] Stop: 09/20/19 20:01 Last Admin: 09/20/19 16:25 Dose: 25 mls/hr Documented by: Lidocaine HCl (Xylocaine-Mpf 1%) 5 ml INJECT ONETIME ONE Stop: 08/08/19 18:08 Last Admin: 08/08/19 18:20 Dose: Not Given Documented by: Lidocaine HCl (Xylocaine-Mpf 1%) 5 ml INJECT STAT ONE Stop: 08/08/19 18:08 Last Admin: 08/08/19 19:05 Dose: 5 ml Documented by: Lisinopril (Prinivil) 10 mg PO DAILY [facility] Last Admin: 08/28/19 07:58 Dose: 10 mg Documented by: Lisinopril (Prinivil) 10 mg PO DAILY [facility] Last Admin: 09/16/19 07:51 Dose: Not Given Documented by: Metoclopramide HCl (Reglan) 10 mg PO Q6H [facility] Last Admin: 07/29/19 14:46 Dose: Not Given Documented by: Ondansetron HCl (Zofran Odt) 4 mg PO Q6H PRN PRN Reason: Nausea/Vomiting Last Admin: 07/27/19 07:43 Dose: 4 mg Documented by: Sodium Chloride (Saline Flush) 10 ml IV Q8HR@0000,0800,1600 [facility] Last Admin: 07/22/19 08:48 Dose: 10 ml Documented by: Sodium Chloride (Saline Flush) 10 ml IV ASDIRECTED PRN PRN Reason: Keep Vein Open Last Admin: 08/30/19 08:45 Dose: 10 ml Documented by: Sodium Chloride (Saline Flush) 10 ml IV Q8HR@1200,2000,0400 [facility] Last Admin: 07/22/19 13:01 Dose: 10 ml Documented by: Sodium Chloride (Saline Flush) 10 ml IV Q12H [facility] Last Admin: 09/01/19 08:46 Dose: Not Given Documented by: Sodium Chloride (Saline Flush) 10 ml IV Q12H [facility] Last Admin: 09/01/19 08:46 Dose: Not Given Documented by: Sodium Chloride (Saline Flush) 10 ml IV Q4H [facility] Last Admin: 08/28/19 19:29 Dose: 10 ml Documented by: Sodium Chloride (Saline Flush) 10 ml IV BID@0800,2000 [facility] Last Admin: 09/01/19 08:46 Dose: Not Given Documented by: - Exam General: Alert, Oriented, Cooperative, No Acute Distress HEENT: Mucous Membr. Moist/[place] Neck: Supple, Trachea Midline, No Thyromegaly. No: Lymphadenopathy Lungs: Clear to Auscultation, Normal Respiratory Effort Cardiovascular: Regular Rate, Regular Rhythm, No Murmurs GI/Abdominal Exam: Normal Bowel Sounds, Soft, Non-Tender, No Organomegaly, No Distention, No Mass Extremities: Non-Tender, No Pedal Edema Peripheral Pulses: 2+: Radial (L), Radial (R) Skin: Warm, Dry Sepsis Event Note - Evaluation Sepsis Screening Result: No Definite Risk - Focused Exam Vital Signs: Vital Signs Temp Pulse Resp BP Pulse Ox 10/09/19 05:39 36.8 C 87 17 105/70 99 Date Exam was Performed: 10/09/19 Time Exam was Performed: 09:07 - Problem List & Annotations (1) Sacral decubitus ulcer SNOMED Code(s): 763616839 Code(s): L89.159 - PRESSURE ULCER OF SACRAL REGION, UNSPECIFIED STAGE Status: Acute Current Visit: No Qualifiers: Pressure injury stage: unspecified pressure injury stage Qualified Code(s): L89.159 - Pressure ulcer of sacral region, unspecified stage (2) Sacral osteomyelitis SNOMED Code(s): 618177215, 210108669 Code(s): M46.28 - OSTEOMYELITIS OF [place]BRA, SACRAL AND SACROCOCCYGEAL REGION Status: Acute Current Visit: No (3) Adjustment disorder SNOMED Code(s): 21354912 Code(s): F43.20 - ADJUSTMENT DISORDER, UNSPECIFIED Status: Acute Current Visit: Yes Qualifiers: Adjustment disorder type: with depressed mood Qualified Code(s): F43.21 - Adjustment disorder with depressed mood (4) Neurogenic bladder SNOMED Code(s): 536507028 Code(s): N31.9 - NEUROMUSCULAR DYSFUNCTION OF BLADDER, UNSPECIFIED Status: Chronic Current Visit: No (5) History of creation of ostomy SNOMED Code(s): 824781239 Code(s): Z93.9 - ARTIFICIAL OPENING STATUS, UNSPECIFIED Status: Acute Current Visit: No (6) Multiple sclerosis SNOMED Code(s): 80615750 Code(s): G35 - MULTIPLE SCLEROSIS Status: Chronic Current Visit: No (7) Chronic sinusitis SNOMED Code(s): 38728624 Code(s): J32.9 - CHRONIC SINUSITIS, UNSPECIFIED Status: Chronic Current Visit: No (8) Constipation SNOMED Code(s): 21637622 Code(s): K59.00 - CONSTIPATION, UNSPECIFIED Status: Chronic Current Visit: No (9) Hypertension SNOMED Code(s): 80072027 Code(s): I10 - ESSENTIAL (PRIMARY) HYPERTENSION Status: Chronic Current Visit: No (10) Obesity SNOMED Code(s): 236748644, 482162808 Code(s): E66.9 - OBESITY, UNSPECIFIED Status: Chronic Current Visit: No (11) Candidal intertrigo SNOMED Code(s): 774113331 Code(s): B37.2 - CANDIDIASIS OF SKIN AND NAIL Status: Acute Current Visit: Yes - Problem List Review Problem List Initiated/Reviewed/Updated: Yes - My Orders Last 24 Hours: My Active Orders 10/08/19 09:18 Amoxicillin/Clavulanate K [Augmentin 875 MG/125 MG] 1 tab PO BIDMEALS - Assessment Assessment:: 44 yo male admitted to [facility] bed for wound cares and IV antibiotics in the setting of a sacral decubitus ulcer complicated by sacral osteomyelitis. Wound is healing well. Antibiotics for the osteomyelitis have been completed. Hospitalization has been complicated by intermittent mood changes as well as dental issues. Now on antibiotics again for wound infection. Having more trouble with spasticity as well. - Plan Plan:: #1 Sacral Decubitus Ulcer #2 Sacral Osteomyelitis - Continue wound cares as ordered by [place]. - Continue follow-ups with the wound clinic and plastic surgery. - He will complete a 5 day course of augmentin. #3 Adjustment Disorder - Continues to deny issues even though objectively he seems depressed. - Will continue to assess for interest in assistance with managing this. #4 Neurogenic Bladder #[address] - Suprapubic catheter and ostomy both functioning well with no concerns at this time. - Both to be continued at least until his wound is healed with the suprapubic catheter likely to be continued indefinitely. #6 MS #7 Chronic Sinusitis #8 Constipation #9 Hypertension #10 Obesity - Continue home medications. - Will increase baclofen to 10 mg TID. - Has completed therapies. - Main barrier to discharge at this time is his wound. #11 Candidal Intertrigo - Will treat with desenex powder. Ordered in [email or web address] and prescription sent to pharmacy via [employer]. Patient will remain on swing bed - anticipate long duration of stay due to need for wound cares and assistance with ADL's without an alternative option at this time. Code status is DNR/DNI - discussed with patient on admission. Patient does not need VTE prophylaxis given he is at his usual functional baseline.
[2019-10-09] MEDS: Acetaminophen 325 MG Tab PO PRN ×2 (12:42→20:47)
[2019-10-10] MEDS: Baclofen 10 MG Tab PO SCH ×4 (09:18→19:40)
[2019-10-10] MEDS: Fluticasone Propionate Nasal Spray 16 GM Bottle NASBOTH SCH ×2 (09:19→19:40)
[2019-10-10] MEDS: Amoxicillin/Clavulanate K 875-125 MG Tab PO SCH ×3 (09:19→19:39)
[2019-10-10] MEDS: Zinc (Zinc Gluconate) 50 MG Tab PO SCH (09:20)
[2019-10-10] MEDS: Cyanocobalamin (Vitamin B12) 250 MCG Tab PO SCH ×2 (09:20→19:37)
[2019-10-10] MEDS: Cholecalciferol (Vitamin D3) 25 MCG Tab PO SCH (09:20)
[2019-10-10] MEDS: Lactobacillus Rhamnosus GG (Probiotic) Cap PO SCH (09:21)
[2019-10-10] MEDS: Multivitamins with Iron/Calcium/Folic Acid/Minerals Tab PO SCH (09:21)
[2019-10-10] MEDS: Acetaminophen 325 MG Tab PO PRN ×2 (09:22→19:37)
[2019-10-10] MEDS: Ascorbic Acid 500 MG Tab PO SCH (09:22)
[2019-10-10] MEDS: Miconazole 2% Top Powder 45 GM Container TOP SCH ×2 (09:23→19:41)
[2019-10-11] MEDS: Fluticasone Propionate Nasal Spray 16 GM Bottle NASBOTH SCH ×2 (09:51→19:26)
[2019-10-11] MEDS: Amoxicillin/Clavulanate K 875-125 MG Tab PO SCH ×2 (09:51→19:25)
[2019-10-11] MEDS: Baclofen 10 MG Tab PO SCH ×3 (09:51→19:27)
[2019-10-11] MEDS: Lactobacillus Rhamnosus GG (Probiotic) Cap PO SCH (10:01)
[2019-10-11] MEDS: Miconazole 2% Top Powder 45 GM Container TOP SCH ×2 (10:01→19:25)
[2019-10-11] MEDS: Zinc (Zinc Gluconate) 50 MG Tab PO SCH (10:02)
[2019-10-11] MEDS: Multivitamins with Iron/Calcium/Folic Acid/Minerals Tab PO SCH (10:02)
[2019-10-11] MEDS: Cholecalciferol (Vitamin D3) 25 MCG Tab PO SCH (10:02)
[2019-10-11] MEDS: Cyanocobalamin (Vitamin B12) 250 MCG Tab PO SCH (10:02)
[2019-10-11] MEDS: Ascorbic Acid 500 MG Tab PO SCH (10:03)
[2019-10-11] MEDS: Acetaminophen 325 MG Tab PO PRN ×2 (10:09→19:27)
[2019-10-12] MEDS: Fluticasone Propionate Nasal Spray 16 GM Bottle NASBOTH SCH ×2 (09:46→20:34)
[2019-10-12] MEDS: Zinc (Zinc Gluconate) 50 MG Tab PO SCH (09:46)
[2019-10-12] MEDS: Lactobacillus Rhamnosus GG (Probiotic) Cap PO SCH (09:47)
[2019-10-12] MEDS: Multivitamins with Iron/Calcium/Folic Acid/Minerals Tab PO SCH (09:47)
[2019-10-12] MEDS: Acetaminophen 325 MG Tab PO PRN ×2 (09:47→22:41)
[2019-10-12] MEDS: Miconazole 2% Top Powder 45 GM Container TOP SCH ×2 (09:48→20:35)
[2019-10-12] MEDS: Ascorbic Acid 500 MG Tab PO SCH (09:48)
[2019-10-12] MEDS: Baclofen 10 MG Tab PO SCH ×3 (09:48→20:34)
[2019-10-12] MEDS: Amoxicillin/Clavulanate K 875-125 MG Tab PO SCH ×2 (09:48→18:58)
[2019-10-13] MEDS: Baclofen 10 MG Tab PO SCH ×3 (09:18→20:53)
[2019-10-13] MEDS: Fluticasone Propionate Nasal Spray 16 GM Bottle NASBOTH SCH ×2 (09:18→20:54)
[2019-10-13] MEDS: Miconazole 2% Top Powder 45 GM Container TOP SCH ×2 (09:19→20:53)
[2019-10-13] MEDS: Acetaminophen 325 MG Tab PO PRN (09:20)
[2019-10-13] MEDS: Ascorbic Acid 500 MG Tab PO SCH (09:21)
[2019-10-13] MEDS: Lactobacillus Rhamnosus GG (Probiotic) Cap PO SCH (09:21)
[2019-10-13] MEDS: Multivitamins with Iron/Calcium/Folic Acid/Minerals Tab PO SCH (09:21)
[2019-10-13] MEDS: Zinc (Zinc Gluconate) 50 MG Tab PO SCH (09:21)
[2019-10-13] MEDS: Acetaminophen 325 MG Tab PO SCH (20:55)
[2019-10-14 06:31] VITALS: BP 109/68; PULSE 80
[2019-10-14] MEDS: Lactobacillus Rhamnosus GG (Probiotic) Cap PO SCH (08:55)
[2019-10-14] MEDS: Ascorbic Acid 500 MG Tab PO SCH (08:55)
[2019-10-14] MEDS: Zinc (Zinc Gluconate) 50 MG Tab PO SCH (08:55)
[2019-10-14] MEDS: Acetaminophen 325 MG Tab PO SCH (08:55)
[2019-10-14] MEDS: Multivitamins with Iron/Calcium/Folic Acid/Minerals Tab PO SCH (08:55)
[2019-10-14] MEDS: Baclofen 10 MG Tab PO SCH ×2 (08:56→12:01)
[2019-10-14] MEDS: Miconazole 2% Top Powder 45 GM Container TOP SCH (08:56)
[2019-10-14] MEDS: Fluticasone Propionate Nasal Spray 16 GM Bottle NASBOTH SCH (08:56)
--- NOTE | 2019-10-14 11:45 | PCM.DCSUM1 ---
Discharge Summary - Hospital Course Free Text/Narrative:: I was asked to see patient to d/c because his primary provider is on vacation. He has been admitted to swing bed for ADLs and chronic wound care. His long- term plan is to see plastics for debridement and wound flap reconstruction. He has this appointment in [place] tomorrow, will be discharged to their hospital there, likely return to swing bed afterwards. He has no new complaints. Nursing notes his chronic malodorous wound is otherwise unchanged from baseline. Afebrile. No changes in his meds recently. He's pleasant and cooperative, malodorous wound, wheelchair, VSS. Diagnosis: Stroke: No - Discharge Data Discharge Date: 10/14/19 Discharge Disposition: Home, Self-Care 01 Condition: Good - Referral to Home Health Primary Care Physician: Ember Mcqueen MD - Patient Summary/Data Consults: Consultations 07/20/19 06:26 OT Evaluation and Treatment [CONS] Routine PT Evaluation and Treatment [CONS] Routine 08/13/19 18:59 OT Evaluation and Treatment [CONS] Routine - Discharge Plan *PRESCRIPTION DRUG MONITORING PROGRAM REVIEWED*: Not Applicable *COPY OF PRESCRIPTION DRUG MONITORING REPORT IN PATIENT ANTONIO: Not Applicable Home Medications: Home Meds Acetaminophen 650 mg PO Q4H PRN 04/22/16 [History] Cholecalciferol (Vitamin D3) [Vitamin D3] 4,000 unit PO DAILY 05/31/16 [History] Fluticasone Propionate [Flonase] 1 spray NASBOTH BID 05/31/16 [History] Multivit,Calc,Mins/Iron/Folic [Thera-M] 1 tab PO DAILY 05/31/16 [History] Cyanocobalamin (Vitamin B12) [Vitamin B12] 500 mcg PO BID 07/11/16 [History] Sennosides/Docusate Sodium [Senna-S Tablet] 2 tab PO BEDTIME PRN 07/11/16 [History] Ocrelizumab [Ocrevus] 300 mg IV Q180D 10/01/17 [History] Ascorbic Acid [Vitamin C] 500 mg PO DAILY 05/14/19 [History] Acetaminophen [Tylenol] 650 mg PO BID tablet 10/14/19 [Rx] Lactobacillus Rhamnosus GG [Culturelle] 1 cap PO DAILY cap 10/14/19 [Rx] Miconazole [Desenex 2%] 0 gm TOP BID cont 10/14/19 [Rx] Naproxen Sodium 220 mg PO Q12H PRN tablet 10/14/19 [Rx] Sodium Chloride 0.9% [Saline Flush] 10 ml IV ASDIRECTED PRN syringe 10/14/19 [Rx] Zinc Gluconate [Zinc] 50 mg PO DAILY tablet 10/14/19 [Rx] - Discharge Summary/Plan Comment DC Time >30 min.: No - Patient Data Vitals - Most Recent: Last Vital Signs Temp 36.4 C 10/14/19 06:00 Pulse 80 10/14/19 06:00 Resp 17 10/14/19 06:00 BP 109/68 10/14/19 06:00 Pulse Ox 97 10/14/19 06:00 Weight - Most Recent: 130.635 kg I&O - Last 24 hours: Intake & Output 10/13/19 10/14/19 10/14/19 22:59 06:59 14:59 Intake Total 120 300 180 Output Total 1000 1650 Balance -880 -1350 180 Med Orders - Current: Current Medications Acetaminophen (Tylenol) 650 mg PO Q4H PRN PRN Reason: Pain (mild 1-3) Last Admin: 10/13/19 09:20 Dose: 650 mg Documented by: Acetaminophen (Tylenol) 650 mg PO BID [facility] Last Admin: 10/14/19 08:55 Dose: 650 mg Documented by: Ascorbic Acid (Vitamin C) 500 mg PO DAILY [facility] Last Admin: 10/14/19 08:55 Dose: 500 mg Documented by: Baclofen (Lioresal) 10 mg PO TID [facility] Last Admin: 10/14/19 08:56 Dose: 10 mg Documented by: Cholecalciferol (Vitamin D3) 100 mcg PO DAILY [facility] Last Admin: 10/11/19 10:02 Dose: Not Given Documented by: Cyanocobalamin (Vitamin B12) 500 mcg PO BID [facility] Last Admin: 10/11/19 10:02 Dose: Not Given Documented by: Fluticasone Propionate (Flonase) 0 gm NASBOTH BID [facility] Last Admin: 10/14/19 08:56 Dose: 1 spray Documented by: Lactobacillus Rhamnosus (Culturelle) 1 cap PO DAILY [facility] Last Admin: 10/14/19 08:55 Dose: 1 cap Documented by: Miconazole (Desenex 2%) 0 gm TOP BID [facility] Last Admin: 10/14/19 08:56 Dose: 1 applic Documented by: Multivitamins/Minerals (Thera M Plus) 1 tab PO DAILY [facility] Last Admin: 10/14/19 08:55 Dose: 1 tab Documented by: Naproxen (Naproxen Sodium) 220 mg PO Q12H PRN PRN Reason: Pain Last Admin: 10/10/19 09:20 Dose: 220 mg Documented by: Senna/Docusate Sodium (Senna Plus) 2 tab PO BEDTIME [facility] Last Admin: 10/13/19 20:54 Dose: 2 tab Documented by: Sodium Chloride (Saline Flush) 10 ml IV ASDIRECTED PRN PRN Reason: Keep Vein Open Last Admin: 09/20/19 20:15 Dose: 10 ml Documented by: Zinc Gluconate (Zinc) 50 mg PO DAILY [facility] Last Admin: 10/14/19 08:55 Dose: 50 mg Documented by: Discontinued Medications Amoxicillin/Clavulanate Potassium (Augmentin 875 Mg/125 Mg) 1 tab PO BIDMEALS [facility] Last Admin: 10/11/19 09:51 Dose: 1 tab Documented by: Amoxicillin/Clavulanate Potassium (Augmentin 875 Mg/125 Mg) 1 tab PO BIDMEALS [facility] Stop: 10/12/19 18:01 Last Admin: 10/12/19 18:58 Dose: 1 tab Documented by: Baclofen (Lioresal) 5 mg PO TID [facility] Last Admin: 10/09/19 08:52 Dose: 5 mg Documented by: Fluticasone Propionate (Flonase) 0 gm NASBOTH BID [facility] Stop: 08/28/19 21:00 Last Admin: 08/28/19 19:31 Dose: 1 spr Documented by: Fluticasone Propionate (Flonase) 0 gm NASBOTH BID [facility] Last Admin: 09/18/19 08:40 Dose: 1 spray Documented by: Heparin Sodium (Porcine) (Heparin Lock Flush 100 Units/Ml) 300 unit IVPUSH Q8H [facility] Last Admin: 07/22/19 13:01 Dose: 300 unit Documented by: Heparin Sodium (Porcine) (Heparin Lock Flush 100 Units/Ml) 300 unit IVPUSH ASDIRECTED PRN PRN Reason: Keep Vein Open Last Admin: 08/29/19 17:43 Dose: 300 unit Documented by: Heparin Sodium (Porcine) (Heparin Lock Flush 100 Units/Ml) 300 unit IVPUSH Q12H [facility] Last Admin: 09/01/19 08:45 Dose: Not Given Documented by: Heparin Sodium (Porcine) (Heparin Lock Flush 100 Units/Ml) 300 unit IVPUSH Q12H [facility] Last Admin: 09/01/19 08:45 Dose: Not Given Documented by: Heparin Sodium (Porcine) (Heparin Lock Flush 100 Units/Ml) 300 unit IVPUSH Q8H [facility] Last Admin: 08/28/19 19:29 Dose: 300 unit Documented by: Heparin Sodium (Porcine) (Heparin Lock Flush 100 Units/Ml) 300 unit IVPUSH Q12HR [facility] Last Admin: 09/01/19 08:45 Dose: Not Given Documented by: Piperacillin Sod/Tazobactam (Sod 4.5 gm/ Sodium Chloride) 100 mls @ 25 mls/hr IV Q8H [facility] Last Admin: 07/20/19 08:20 Dose: Not Given Documented by: Piperacillin Sod/Tazobactam (Sod 4.5 gm/ Sodium Chloride) 100 mls @ 25 mls/hr IV Q8H [facility] Stop: 08/28/19 17:00 Last Admin: 08/28/19 16:05 Dose: 25 mls/hr Documented by: Methylprednisolone Sodium Succinate 1,000 mg/ Sodium Chloride 108 mls @ 200 mls/hr IV DAILY [facility] Stop: 08/31/19 08:01 Last Admin: 08/31/19 08:55 Dose: 200 mls/hr Documented by: Piperacillin Sod/Tazobactam (Sod 4.5 gm/ Sodium Chloride) 100 mls @ 200 mls/hr IV ONETIME ONE Stop: 09/16/19 19:44 Last Admin: 09/16/19 19:38 Dose: 200 mls/hr Documented by: Piperacillin Sod/Tazobactam (Sod 3.375 gm/ Sodium Chloride) 100 mls @ 25 mls/hr IV Q8H [facility] Stop: 09/20/19 20:01 Last Admin: 09/20/19 16:25 Dose: 25 mls/hr Documented by: Lidocaine HCl (Xylocaine-Mpf 1%) 5 ml INJECT ONETIME ONE Stop: 08/08/19 18:08 Last Admin: 08/08/19 18:20 Dose: Not Given Documented by: Lidocaine HCl (Xylocaine-Mpf 1%) 5 ml INJECT STAT ONE Stop: 08/08/19 18:08 Last Admin: 08/08/19 19:05 Dose: 5 ml Documented by: Lisinopril (Prinivil) 10 mg PO DAILY [facility] Last Admin: 08/28/19 07:58 Dose: 10 mg Documented by: Lisinopril (Prinivil) 10 mg PO DAILY [facility] Last Admin: 09/16/19 07:51 Dose: Not Given Documented by: Metoclopramide HCl (Reglan) 10 mg PO Q6H [facility] Last Admin: 07/29/19 14:46 Dose: Not Given Documented by: Ondansetron HCl (Zofran Odt) 4 mg PO Q6H PRN PRN Reason: Nausea/Vomiting Last Admin: 07/27/19 07:43 Dose: 4 mg Documented by: Senna/Docusate Sodium (Senna Plus) 2 tab PO BEDTIME PRN PRN Reason: Constipation Last Admin: 10/10/19 19:37 Dose: 2 tab Documented by: Sodium Chloride (Saline Flush) 10 ml IV Q8HR@0000,0800,1600 [facility] Last Admin: 07/22/19 08:48 Dose: 10 ml Documented by: Sodium Chloride (Saline Flush) 10 ml IV ASDIRECTED PRN PRN Reason: Keep Vein Open Last Admin: 08/30/19 08:45 Dose: 10 ml Documented by: Sodium Chloride (Saline Flush) 10 ml IV Q8HR@1200,2000,0400 [facility] Last Admin: 07/22/19 13:01 Dose: 10 ml Documented by: Sodium Chloride (Saline Flush) 10 ml IV Q12H [facility] Last Admin: 09/01/19 08:46 Dose: Not Given Documented by: Sodium Chloride (Saline Flush) 10 ml IV Q12H [facility] Last Admin: 09/01/19 08:46 Dose: Not Given Documented by: Sodium Chloride (Saline Flush) 10 ml IV Q4H [facility] Last Admin: 08/28/19 19:29 Dose: 10 ml Documented by: Sodium Chloride (Saline Flush) 10 ml IV BID@0800,2000 [facility] Last Admin: 09/01/19 08:46 Dose: Not Given Documented by: *Q Meaningful Use (DIS) - VTE *Q VTE Anticoagulation Contraindications: Med/TX Not Indicated/Need
== END 2019-10-14 14:15 | disposition home or self-care (01) | DRG 540 ==
LOC: VM.MS 02:41
PROVIDERS: ADMIT Family Medicine; ATTEND Family Medicine
DX: M46.28 Osteomyelitis of vertebra, sacral and sacrococcygeal region (principal); G37.2 Central pontine myelinolysis; Z68.41 Body mass index [BMI] 40.0-44.9, adult; L89.159 Pressure ulcer of sacral region, unspecified stage; R25.2 Cramp and spasm; K59.00 Constipation, unspecified; F43.21 Adjustment disorder with depressed mood; K11.20 Sialoadenitis, unspecified; S02.5XXA Fracture of tooth (traumatic), initial encounter for closed fracture; X58.XXXA Exposure to other specified factors, initial encounter; R31.9 Hematuria, unspecified; Z93.3 Colostomy status; Z93.6 Other artificial openings of urinary tract status; N31.9 Neuromuscular dysfunction of bladder, unspecified; J32.4 Chronic pansinusitis; I10 Essential (primary) hypertension; G35 Multiple sclerosis; E66.9 Obesity, unspecified; Z66 Do not resuscitate; Z88.1 Allergy status to other antibiotic agents; Z91.02 Food additives allergy status; Z91.011 Allergy to milk products; Z79.899 Other long term (current) drug therapy
CPT/HCPCS: 36415; 51702; 73030-RT; 81001; 82040; 82565; 83036; 84134; 84460; 85007; 85025; 85027; 85652; 86140; 97110-GO; 97165-GO; A9270-GY; J1642; J2001; J2543; J2930; J7050

== ENCOUNTER 2019-10-22 13:59 | Inpatient (IN) | payer MEDICARE, MEDICAID ==
[2019-10-22] MEDS ORDERED: Piperacillin/Tazobactam 4.5 GM Vial IV SCH (16:00)
--- NOTE | 2019-10-22 16:06 | PCM.HP.2 ---
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 He was transferred to [place] last week with plans to perform a skin graft over his sacrum. Upon further examination, it was determined he did have recurrence of osteomyelitis and also did not appear to have adequate blood flow to support a skin graft at this time. Therefore, decisions were made to continue with the wound vac for wound cares. ID was consulted and his antibiotics were adjusted according to culture results. He will follow-up with ID and plastics. Upon arrival to the floor, the patient denies any concerns. He is glad to be back in [place]. He is disappointed with the outcome of his hospitalization but feels the rationale for decisions made was explained well to him to the point that he feels comfortable with the plan. He denies any fever or chills. Strength is holding steady. His appetite has been good and he has had no GI symptoms. - Related Data Allergies/Adverse Reactions: Allergies Allergy/AdvReac Type Severity Reaction Status Date / Time ceftriaxone sodium Allergy Rash Verified 05/14/19 12:03 [From Rocephin] doxycycline Allergy Cannot Verified 05/14/19 14:04 Remember Dairy Products AdvReac Diarrhea Verified 05/14/19 12:03 gluten AdvReac Diarrhea Verified 05/14/19 12:03 Home Medications: Home Meds Acetaminophen 650 mg PO Q4H PRN 04/22/16 [History] Cholecalciferol (Vitamin D3) [Vitamin D3] 4,000 unit PO DAILY 05/31/16 [History] Fluticasone Propionate [Flonase] 1 spray NASBOTH BID 05/31/16 [History] Multivit,Calc,Mins/Iron/Folic [Thera-M] 1 tab PO DAILY 05/31/16 [History] Cyanocobalamin (Vitamin B12) [Vitamin B12] 500 mcg PO BID 07/11/16 [History] Sennosides/Docusate Sodium [Senna-S Tablet] 2 tab PO BEDTIME PRN 07/11/16 [History] Ocrelizumab [Ocrevus] 300 mg IV Q180D 10/01/17 [History] Ascorbic Acid [Vitamin C] 500 mg PO DAILY 05/14/19 [History] Acetaminophen [Tylenol] 650 mg PO BID tablet 10/14/19 [Rx] Lactobacillus Rhamnosus GG [Culturelle] 1 cap PO DAILY cap 10/14/19 [Rx] Sodium Chloride 0.9% [Saline Flush] 10 ml IV ASDIRECTED PRN syringe 10/14/19 [Rx] Zinc Gluconate [Zinc] 50 mg PO DAILY tablet 10/14/19 [Rx] Heparin Sodium [Heparin Lock Flush 100 Units/ML] 300 unit FLUSH ASDIRECTED PRN 10/22/19 [History] Miconazole [Desenex 2%] 0 gm TOP BID PRN 10/22/19 [History] Piperacillin/Tazobactam [Zosyn 4.5 GM] 4.5 gm IV Q8H 10/22/19 [History] oxyCODONE HCl/Acetaminophen [Percocet 5-325 mg Tablet] 1 tab PO Q4H PRN 10/22/19 [History] Past Medical History - Past Health History Medical/Surgical History: Denies Medical/Surgical History HEENT History: Reports: None Cardiovascular History: Reports: None, Other (See Below) Other Cardiovascular History: essential hypertension Respiratory History: Reports: None, Other (See Below) Other Respiratory History: chronic pansinusitis Gastrointestinal History: Reports: None Genitourinary History: Reports: Neurogenic Bladder Musculoskeletal History: Reports: None Other Musculoskeletal History: MS dx 1999 with recent exacerbation Neurological History: Reports: MS Psychiatric History: Reports: None Endocrine/Metabolic History: Reports: None, Obesity/BMI 30+ Hematologic History: Reports: None Immunologic History: Reports: None Oncologic (Cancer) History: Reports: None Dermatologic History: Reports: None - Infectious Disease History Infectious Disease History: Reports: None - Past Surgical History GI Surgical History: Reports: Colostomy Male Surgical History: Reports: Suprapubic Catheter Placement Neurological Surgical History: Reports: None Social & Family History - Family History HEENT: Reports: Glaucoma Cardiac: Reports: [place] : Reports: Dialysis Endocrine/Metabolic: Reports: Diabetes, type II - Tobacco Use Smoking Status *Q: Never Smoker - Caffeine Use Caffeine Use: Reports: Tea Caffeine Use Comment: green tea - Alcohol Use Alcohol Use History: No Alcohol Use in Last Twelve Months: No - Recreational Drug Use Recreational Drug Use: No - Living Situation & Occupation Living situation: Reports: Single, Alone (considering transition to a SNF but is not ready for that yet) Occupation: Disabled H&P Review of Systems - Review of Systems: Review Of Systems: See Below General: Reports: No Symptoms HEENT: Reports: No Symptoms Pulmonary: Reports: No Symptoms Cardiovascular: Reports: No Symptoms Gastrointestinal: Reports: No Symptoms Genitourinary: Reports: No Symptoms Musculoskeletal: Reports: No Symptoms Skin: Reports: No Symptoms Psychiatric: Reports: No Symptoms Neurological: Reports: No Symptoms Hematologic/Lymphatic: Reports: No Symptoms Exam - Exam Exam: See Below - Vital Signs Vital Signs: Last Vital Signs Temp Pulse 85 10/22/19 15:06 Resp 18 10/22/19 15:06 BP 114/76 10/22/19 15:06 Pulse Ox 100 10/22/19 15:06 - Exam General: Alert, Oriented, Cooperative HEENT: Conjunctiva Clear, Mucosa Moist & [place], Posterior Pharynx Clear, Pupils Equal, Pupils Reactive Neck: Supple, Trachea Midline. No: Lymphadenopathy, Thyromegaly Lungs: Clear to Auscultation, Normal Respiratory Effort Cardiovascular: Regular Rate, Regular Rhythm, Normal S1, Normal S2 GI/Abdominal Exam: Normal Bowel Sounds, Soft, Non-Tender, No Organomegaly, No Distention, No Mass Extremities: Normal Inspection, No Pedal Edema, Normal Capillary Refill Peripheral Pulses: 2+: Radial (L), Radial (R) Skin: Warm, Dry, Intact Sepsis Event Note - Focused Exam Vital Signs: Vital Signs Pulse Resp BP Pulse Ox 10/22/19 15:06 85 18 114/76 100 Date Exam was Performed: 10/22/19 Time Exam was Performed: 16:50 *Q Meaningful Use (ADM) - VTE *Q VTE Anticoagulation Contraindications: Med/TX Not Indicated/Need - Problem List (1) Sacral decubitus ulcer SNOMED Code(s): 007038559 ICD Code: L89.159 - PRESSURE ULCER OF SACRAL REGION, UNSPECIFIED STAGE Status: Acute Current Visit: No Qualifiers: Pressure injury stage: unspecified pressure injury stage Qualified Code(s): L89.159 - Pressure ulcer of sacral region, unspecified stage (2) Sacral osteomyelitis SNOMED Code(s): 484828545, 822261313 ICD Code: M46.28 - OSTEOMYELITIS OF VERTEBRA, SACRAL AND SACROCOCCYGEAL REGION Status: Acute Current Visit: No (3) Chronic sinusitis SNOMED Code(s): 14579671 ICD Code: J32.9 - CHRONIC SINUSITIS, UNSPECIFIED Status: Chronic Current Visit: No (4) Constipation SNOMED Code(s): 25254690 ICD Code: K59.00 - CONSTIPATION, UNSPECIFIED Status: Chronic Current Visit: No (5) Hypertension SNOMED Code(s): 83435959 ICD Code: I10 - ESSENTIAL (PRIMARY) HYPERTENSION Status: Chronic Current Visit: No (6) Multiple sclerosis SNOMED Code(s): 39898846 ICD Code: G35 - MULTIPLE SCLEROSIS Status: Chronic Current Visit: No (7) Neurogenic bladder SNOMED Code(s): 749690001 ICD Code: N31.9 - NEUROMUSCULAR DYSFUNCTION OF BLADDER, UNSPECIFIED Status: Chronic Current Visit: No (8) Adjustment disorder SNOMED Code(s): 40509185 ICD Code: F43.20 - ADJUSTMENT DISORDER, UNSPECIFIED Status: Acute Current Visit: No Qualifiers: Adjustment disorder type: with depressed mood Qualified Code(s): F43.21 - Adjustment disorder with depressed mood Problem List Initiated/Reviewed/Updated: Yes Orders Last 24hrs: Active Orders 24 hr Category Date Time Status Patient Status [ADT] Routine ADT 10/22/19 15:06 Active Dietary Supplements [RC] BIDMEALS Care 10/22/19 15:58 Ordered Notify Provider Vital Signs [RC] ASDIRECTED Care 10/22/19 15:07 Active Oxygen Therapy [RC] PRN Care 10/22/19 15:06 Active Up With Assistance [RC] ASDIRECTED Care 10/22/19 15:06 Active VTE/DVT Education [RC] PER UNIT ROUTINE Care 10/22/19 15:06 Active Vital Signs [RC] Q4H Care 10/22/19 15:06 Active OT Evaluation and Treatment [CONS] Routine Cons 10/22/19 15:06 Active PT Evaluation and Treatment [CONS] Routine Cons 10/22/19 15:06 Active Regular Diet [DIET] Diet 10/22/19 Dinner Active Acetaminophen [Tylenol] Med 10/22/19 20:00 Ordered 650 mg PO BID Ascorbic Acid [Vitamin C] Med 10/23/19 08:00 Ordered 500 mg PO DAILY Cholecalciferol (Vitamin D3) [Vitamin D3] Med 10/23/19 08:00 Ordered 4,000 unit PO DAILY Cyanocobalamin (Vitamin B12) [Vitamin B12] Med 10/22/19 20:00 Ordered 500 mcg PO BID Docusate Sodium/Sennosides [Senna Plus] Med 10/22/19 15:56 Ordered 2 tab PO BEDTIME PRN Fluticasone Propionate [Flonase] Med 10/22/19 20:00 Ordered 1 spray NASBOTH BID Heparin Sodium [Heparin Lock Flush 100 Units/ML] Med 10/22/19 15:56 Ordered 300 unit FLUSH ASDIRECTED PRN Lactobacillus Rhamnosus GG [Culturelle] Med 10/23/19 08:00 Ordered 1 cap PO DAILY Miconazole [Desenex 2%] Med 10/22/19 15:56 Ordered 1 gm TOP BID PRN Multivit,Calc,Mins/Iron/Folic [Thera-M] Med 10/23/19 08:00 Ordered 1 tab PO DAILY Piperacillin/Tazobactam [Zosyn] Med 10/22/19 16:00 Ordered 4.5 gm IV Q8H Sodium Chloride 0.9% [Saline Flush] Med 10/22/19 15:56 Ordered 10 ml IV ASDIRECTED PRN Zinc Gluconate [Zinc] Med 10/23/19 08:00 Ordered 50 mg PO DAILY Anticoagulation Contraindications VTE [AST] Per Unit Oth 10/22/19 15:06 Ordered Routine Resuscitation Status Routine Resus Stat 10/22/19 15:06 Ordered Medication Orders Acetaminophen (Tylenol) 650 mg PO BID ORAL Ascorbic Acid (Vitamin C) 500 mg PO DAILY ORAL Fluticasone Propionate (Flonase) gm NASBOTH BID ORAL Heparin Sodium (Porcine) (Heparin Lock Flush 100 Units/Ml) 300 unit FLUSH ASDIRECTED PRN PRN Reason: Keep Vein Open Lactobacillus Rhamnosus (Culturelle) 1 cap PO DAILY ORAL Miconazole (Desenex 2%) 1 gm TOP BID PRN PRN Reason: Rash Non-Formulary Medication (Cholecalciferol (Vitamin D3) [Vitamin D3]) 4,000 unit PO DAILY ORAL Non-Formulary Medication (Cyanocobalamin (Vitamin B12) [Vitamin B12]) 500 mcg PO BID [facility] Non-Formulary Medication (Multivit,Calc,Mins/Iron/Folic [Thera-M]) 1 tab PO DAILY ORAL Piperacillin Sod/Tazobactam Sod (Zosyn) 4.5 gm IV Q8H [facility] Senna/Docusate Sodium (Senna Plus) 2 tab PO BEDTIME PRN PRN Reason: Constipation Sodium Chloride (Saline Flush) 10 ml IV ASDIRECTED PRN PRN Reason: Keep Vein Open Zinc Gluconate (Zinc) 50 mg PO DAILY [facility] Assessment/Plan Comment:: 44 yo male admitted back to swing bed for ongoing wound cares and now IV antibiotics again. #1 Sacral decubitus ulcer #2 Sacral osteomyelitis - Continue wound cares as per orders from [place]. - Plastic surgery follow-up is scheduled for next week. - Continue antibiotics per ID. Follow-up with ID is also scheduled. He will need weekly labs. #3 Chronic sinusitis #4 Constipation #5 Hypertension #6 MS - Continue home medications. #7 Neurogenic bladder - Suprapubic catheter is working well. #8 Adjustment disorder - Affect is improved upon return from [place]. - Will continue to monitor closely. 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 He guillermo l for sure be admitted to swing bed until his wound is healed. Code status is DNR/DNI - discussed on admission. No indication for VTE prophylaxis as he is at his usual functional baseline.
[2019-10-22] MEDS: Sodium Chloride 0.9% 10 ML Syringe IV PRN ×2 (17:57→22:17)
[2019-10-22] MEDS: Piperacillin/Tazobactam 4.5 GM in Sodium Chloride 0.9% 100 ML IV SCH (17:58)
[2019-10-22] MEDS: Heparin Sodium 100 Units/ML 3 ML Syringe FLUSH SCH (20:37)
[2019-10-22] MEDS: Acetaminophen 325 MG Tab PO SCH (20:37)
[2019-10-22] MEDS: Fluticasone Propionate Nasal Spray 16 GM Bottle NASBOTH SCH (20:41)
[2019-10-22] MEDS: Heparin Sodium 100 Units/ML 3 ML Syringe FLUSH PRN (22:17)
[2019-10-23] MEDS: Sodium Chloride 0.9% 10 ML Syringe IV PRN ×2 (01:07→05:35)
[2019-10-23] MEDS: Piperacillin/Tazobactam 4.5 GM in Sodium Chloride 0.9% 100 ML IV SCH ×4 (01:07→23:47)
[2019-10-23] MEDS: Heparin Sodium 100 Units/ML 3 ML Syringe FLUSH SCH ×3 (05:35→20:55)
[2019-10-23] MEDS: Zinc (Zinc Gluconate) 50 MG Tab PO SCH (08:17)
[2019-10-23] MEDS: Acetaminophen 325 MG Tab PO SCH ×2 (08:17→19:46)
[2019-10-23] MEDS: Cholecalciferol (Vitamin D3) 25 MCG Tab PO SCH (08:17)
[2019-10-23] MEDS: Cyanocobalamin (Vitamin B12) 250 MCG Tab PO SCH (08:17)
[2019-10-23] MEDS: Multivitamins with Iron/Calcium/Folic Acid/Minerals Tab PO SCH (08:17)
[2019-10-23] MEDS: Lactobacillus Rhamnosus GG (Probiotic) Cap PO SCH (08:17)
[2019-10-23] MEDS: Ascorbic Acid 500 MG Tab PO SCH (08:18)
[2019-10-23] MEDS: Fluticasone Propionate Nasal Spray 16 GM Bottle NASBOTH SCH ×2 (08:18→19:48)
[2019-10-23] MEDS ORDERED: Alteplase 2 MG Vial IVPUSH ONE (12:44)
[2019-10-23] MEDS: Heparin Sodium 100 Units/ML 3 ML Syringe FLUSH PRN (14:26)
[2019-10-24] MEDS: Heparin Sodium 100 Units/ML 3 ML Syringe FLUSH SCH ×3 (04:40→21:07)
[2019-10-24] MEDS: Lactobacillus Rhamnosus GG (Probiotic) Cap PO SCH (08:28)
[2019-10-24] MEDS: Cyanocobalamin (Vitamin B12) 250 MCG Tab PO SCH (08:28)
[2019-10-24] MEDS: Cholecalciferol (Vitamin D3) 25 MCG Tab PO SCH (08:28)
[2019-10-24] MEDS: Ascorbic Acid 500 MG Tab PO SCH (08:28)
[2019-10-24] MEDS: Zinc (Zinc Gluconate) 50 MG Tab PO SCH (08:28)
[2019-10-24] MEDS: Multivitamins with Iron/Calcium/Folic Acid/Minerals Tab PO SCH (08:28)
[2019-10-24] MEDS: Acetaminophen 325 MG Tab PO SCH ×2 (08:28→21:07)
[2019-10-24] MEDS: Fluticasone Propionate Nasal Spray 16 GM Bottle NASBOTH SCH ×2 (08:28→21:11)
[2019-10-24] MEDS: Piperacillin/Tazobactam 4.5 GM in Sodium Chloride 0.9% 100 ML IV SCH ×2 (08:30→16:36)
[2019-10-25] MEDS: Piperacillin/Tazobactam 4.5 GM in Sodium Chloride 0.9% 100 ML IV SCH ×3 (00:41→16:29)
[2019-10-25] MEDS: Heparin Sodium 100 Units/ML 3 ML Syringe FLUSH SCH ×3 (04:39→20:54)
[2019-10-25] MEDS: Ascorbic Acid 500 MG Tab PO SCH (08:27)
[2019-10-25] MEDS: Multivitamins with Iron/Calcium/Folic Acid/Minerals Tab PO SCH (08:27)
[2019-10-25] MEDS: Zinc (Zinc Gluconate) 50 MG Tab PO SCH (08:27)
[2019-10-25] MEDS: Lactobacillus Rhamnosus GG (Probiotic) Cap PO SCH (08:27)
[2019-10-25] MEDS: Cholecalciferol (Vitamin D3) 25 MCG Tab PO SCH (08:27)
[2019-10-25] MEDS: Cyanocobalamin (Vitamin B12) 250 MCG Tab PO SCH (08:27)
[2019-10-25] MEDS: Acetaminophen 325 MG Tab PO SCH ×2 (08:27→20:53)
[2019-10-25] MEDS: Fluticasone Propionate Nasal Spray 16 GM Bottle NASBOTH SCH ×2 (08:28→20:55)
[2019-10-25] MEDS: Sodium Chloride 0.9% 10 ML Syringe IV PRN (20:54)
[2019-10-26] MEDS: Piperacillin/Tazobactam 4.5 GM in Sodium Chloride 0.9% 100 ML IV SCH ×4 (01:10→23:51)
[2019-10-26] MEDS: Sodium Chloride 0.9% 10 ML Syringe IV PRN ×6 (05:24→23:51)
[2019-10-26] MEDS: Heparin Sodium 100 Units/ML 3 ML Syringe FLUSH SCH ×3 (05:25→20:50)
[2019-10-26] MEDS: Fluticasone Propionate Nasal Spray 16 GM Bottle NASBOTH SCH ×2 (08:04→20:51)
[2019-10-26] MEDS: Ascorbic Acid 500 MG Tab PO SCH (08:07)
[2019-10-26] MEDS: Cholecalciferol (Vitamin D3) 25 MCG Tab PO SCH (08:07)
[2019-10-26] MEDS: Cyanocobalamin (Vitamin B12) 250 MCG Tab PO SCH (08:07)
[2019-10-26] MEDS: Multivitamins with Iron/Calcium/Folic Acid/Minerals Tab PO SCH (08:07)
[2019-10-26] MEDS: Acetaminophen 325 MG Tab PO SCH ×2 (08:07→20:51)
[2019-10-26] MEDS: Zinc (Zinc Gluconate) 50 MG Tab PO SCH (08:07)
[2019-10-26] MEDS: Lactobacillus Rhamnosus GG (Probiotic) Cap PO SCH (08:08)
[2019-10-27] MEDS: Sodium Chloride 0.9% 10 ML Syringe IV PRN ×2 (04:07→19:36)
[2019-10-27] MEDS: Heparin Sodium 100 Units/ML 3 ML Syringe FLUSH SCH ×3 (04:09→19:37)
[2019-10-27] MEDS: Piperacillin/Tazobactam 4.5 GM in Sodium Chloride 0.9% 100 ML IV SCH ×2 (08:32→16:07)
[2019-10-27] MEDS: Fluticasone Propionate Nasal Spray 16 GM Bottle NASBOTH SCH ×2 (08:32→19:40)
[2019-10-27] MEDS: Cholecalciferol (Vitamin D3) 25 MCG Tab PO SCH (08:33)
[2019-10-27] MEDS: Lactobacillus Rhamnosus GG (Probiotic) Cap PO SCH (08:34)
[2019-10-27] MEDS: Cyanocobalamin (Vitamin B12) 250 MCG Tab PO SCH (08:34)
[2019-10-27] MEDS: Multivitamins with Iron/Calcium/Folic Acid/Minerals Tab PO SCH (08:34)
[2019-10-27] MEDS: Acetaminophen 325 MG Tab PO SCH ×2 (08:34→19:41)
[2019-10-27] MEDS: Ascorbic Acid 500 MG Tab PO SCH (08:34)
[2019-10-27] MEDS: Zinc (Zinc Gluconate) 50 MG Tab PO SCH (08:38)
[2019-10-28] MEDS: Sodium Chloride 0.9% 10 ML Syringe IV PRN ×3 (00:09→21:12)
[2019-10-28] MEDS: Piperacillin/Tazobactam 4.5 GM in Sodium Chloride 0.9% 100 ML IV SCH ×3 (00:17→16:54)
[2019-10-28] MEDS: Heparin Sodium 100 Units/ML 3 ML Syringe FLUSH SCH ×3 (04:00→21:12)
[2019-10-28] MEDS: Acetaminophen 325 MG Tab PO SCH ×2 (08:01→21:12)
[2019-10-28] MEDS: Cyanocobalamin (Vitamin B12) 250 MCG Tab PO SCH (08:01)
[2019-10-28] MEDS: Multivitamins with Iron/Calcium/Folic Acid/Minerals Tab PO SCH (08:01)
[2019-10-28] MEDS: Cholecalciferol (Vitamin D3) 25 MCG Tab PO SCH (08:01)
[2019-10-28] MEDS: Lactobacillus Rhamnosus GG (Probiotic) Cap PO SCH (08:01)
[2019-10-28] MEDS: Zinc (Zinc Gluconate) 50 MG Tab PO SCH (08:01)
[2019-10-28] MEDS: Ascorbic Acid 500 MG Tab PO SCH (08:02)
[2019-10-28] MEDS: Fluticasone Propionate Nasal Spray 16 GM Bottle NASBOTH SCH ×2 (08:02→21:14)
[2019-10-29] MEDS: Piperacillin/Tazobactam 4.5 GM in Sodium Chloride 0.9% 100 ML IV SCH ×3 (00:50→16:00)
[2019-10-29] MEDS: Sodium Chloride 0.9% 10 ML Syringe IV PRN ×3 (00:51→20:05)
[2019-10-29] MEDS: Heparin Sodium 100 Units/ML 3 ML Syringe FLUSH SCH ×3 (04:35→20:05)
[2019-10-29] MEDS: Multivitamins with Iron/Calcium/Folic Acid/Minerals Tab PO SCH (08:10)
[2019-10-29] MEDS: Acetaminophen 325 MG Tab PO SCH ×2 (08:11→20:02)
[2019-10-29] MEDS: Cholecalciferol (Vitamin D3) 25 MCG Tab PO SCH (08:11)
[2019-10-29] MEDS: Cyanocobalamin (Vitamin B12) 250 MCG Tab PO SCH (08:11)
[2019-10-29] MEDS: Ascorbic Acid 500 MG Tab PO SCH (08:11)
[2019-10-29] MEDS: Zinc (Zinc Gluconate) 50 MG Tab PO SCH (08:12)
[2019-10-29] MEDS: Lactobacillus Rhamnosus GG (Probiotic) Cap PO SCH (08:12)
[2019-10-29] MEDS: Fluticasone Propionate Nasal Spray 16 GM Bottle NASBOTH SCH ×2 (08:13→20:02)
[2019-10-30] MEDS: Sodium Chloride 0.9% 10 ML Syringe IV PRN ×3 (00:09→20:09)
[2019-10-30] MEDS: Piperacillin/Tazobactam 4.5 GM in Sodium Chloride 0.9% 100 ML IV SCH ×3 (00:21→16:30)
[2019-10-30] MEDS: Heparin Sodium 100 Units/ML 3 ML Syringe FLUSH SCH ×3 (04:08→20:09)
[2019-10-30] MEDS: Acetaminophen 325 MG Tab PO SCH ×2 (08:37→20:05)
[2019-10-30] MEDS: Lactobacillus Rhamnosus GG (Probiotic) Cap PO SCH (08:41)
[2019-10-30] MEDS: Zinc (Zinc Gluconate) 50 MG Tab PO SCH (08:41)
[2019-10-30] MEDS: Ascorbic Acid 500 MG Tab PO SCH (08:41)
[2019-10-30] MEDS: Cholecalciferol (Vitamin D3) 25 MCG Tab PO SCH (08:41)
[2019-10-30] MEDS: Multivitamins with Iron/Calcium/Folic Acid/Minerals Tab PO SCH (08:41)
[2019-10-30] MEDS: Cyanocobalamin (Vitamin B12) 250 MCG Tab PO SCH (08:41)
[2019-10-30] MEDS: Fluticasone Propionate Nasal Spray 16 GM Bottle NASBOTH SCH ×2 (08:42→20:07)
[2019-10-31] MEDS: Sodium Chloride 0.9% 10 ML Syringe IV PRN ×3 (00:32→19:26)
[2019-10-31] MEDS: Piperacillin/Tazobactam 4.5 GM in Sodium Chloride 0.9% 100 ML IV SCH ×3 (00:38→16:46)
[2019-10-31] MEDS: Heparin Sodium 100 Units/ML 3 ML Syringe FLUSH SCH ×3 (04:51→19:26)
[2019-10-31] MEDS: Ascorbic Acid 500 MG Tab PO SCH (07:45)
[2019-10-31] MEDS: Acetaminophen 325 MG Tab PO SCH ×2 (07:45→19:22)
[2019-10-31] MEDS: Lactobacillus Rhamnosus GG (Probiotic) Cap PO SCH (07:45)
[2019-10-31] MEDS: Cholecalciferol (Vitamin D3) 25 MCG Tab PO SCH (07:45)
[2019-10-31] MEDS: Zinc (Zinc Gluconate) 50 MG Tab PO SCH (07:45)
[2019-10-31] MEDS: Cyanocobalamin (Vitamin B12) 250 MCG Tab PO SCH (07:45)
[2019-10-31] MEDS: Multivitamins with Iron/Calcium/Folic Acid/Minerals Tab PO SCH (07:45)
[2019-10-31] MEDS: Fluticasone Propionate Nasal Spray 16 GM Bottle NASBOTH SCH ×2 (07:46→19:22)
[2019-10-31] MEDS: Heparin Sodium 100 Units/ML 3 ML Syringe FLUSH PRN (12:01)
[2019-11-01] MEDS: Sodium Chloride 0.9% 10 ML Syringe IV PRN ×3 (00:35→20:40)
[2019-11-01] MEDS: Piperacillin/Tazobactam 4.5 GM in Sodium Chloride 0.9% 100 ML IV SCH ×3 (00:37→16:10)
[2019-11-01] MEDS: Heparin Sodium 100 Units/ML 3 ML Syringe FLUSH SCH ×3 (04:40→20:40)
[2019-11-01] MEDS: Acetaminophen 325 MG Tab PO SCH ×2 (07:45→19:42)
[2019-11-01] MEDS: Multivitamins with Iron/Calcium/Folic Acid/Minerals Tab PO SCH (07:45)
[2019-11-01] MEDS: Lactobacillus Rhamnosus GG (Probiotic) Cap PO SCH (07:45)
[2019-11-01] MEDS: Zinc (Zinc Gluconate) 50 MG Tab PO SCH (07:45)
[2019-11-01] MEDS: Cyanocobalamin (Vitamin B12) 250 MCG Tab PO SCH (07:45)
[2019-11-01] MEDS: Ascorbic Acid 500 MG Tab PO SCH (07:45)
[2019-11-01] MEDS: Cholecalciferol (Vitamin D3) 25 MCG Tab PO SCH (07:45)
[2019-11-01] MEDS: Fluticasone Propionate Nasal Spray 16 GM Bottle NASBOTH SCH ×2 (07:46→19:41)
[2019-11-02] MEDS: Sodium Chloride 0.9% 10 ML Syringe IV PRN ×3 (01:12→23:55)
[2019-11-02] MEDS: Piperacillin/Tazobactam 4.5 GM in Sodium Chloride 0.9% 100 ML IV SCH ×4 (01:13→23:48)
[2019-11-02] MEDS: Heparin Sodium 100 Units/ML 3 ML Syringe FLUSH SCH ×3 (05:50→20:55)
[2019-11-02] MEDS: Ascorbic Acid 500 MG Tab PO SCH (07:37)
[2019-11-02] MEDS: Lactobacillus Rhamnosus GG (Probiotic) Cap PO SCH (07:37)
[2019-11-02] MEDS: Acetaminophen 325 MG Tab PO SCH ×2 (07:37→19:41)
[2019-11-02] MEDS: Multivitamins with Iron/Calcium/Folic Acid/Minerals Tab PO SCH (07:37)
[2019-11-02] MEDS: Cholecalciferol (Vitamin D3) 25 MCG Tab PO SCH (07:37)
[2019-11-02] MEDS: Zinc (Zinc Gluconate) 50 MG Tab PO SCH (07:38)
[2019-11-02] MEDS: Cyanocobalamin (Vitamin B12) 250 MCG Tab PO SCH (07:38)
[2019-11-02] MEDS: Fluticasone Propionate Nasal Spray 16 GM Bottle NASBOTH SCH ×2 (07:38→19:41)
[2019-11-02] MEDS ORDERED: Sodium Bicarbonate 8.4% 50 MEQ/50 ML Syringe ONE (12:41)
[2019-11-03] MEDS: Heparin Sodium 100 Units/ML 3 ML Syringe FLUSH SCH ×3 (04:15→20:35)
[2019-11-03] MEDS: Sodium Chloride 0.9% 10 ML Syringe IV PRN ×3 (04:15→23:57)
[2019-11-03] MEDS: Piperacillin/Tazobactam 4.5 GM in Sodium Chloride 0.9% 100 ML IV SCH ×3 (07:59→23:57)
[2019-11-03] MEDS: Cholecalciferol (Vitamin D3) 25 MCG Tab PO SCH (08:00)
[2019-11-03] MEDS: Acetaminophen 325 MG Tab PO SCH ×3 (08:00→19:57)
[2019-11-03] MEDS: Multivitamins with Iron/Calcium/Folic Acid/Minerals Tab PO SCH (08:00)
[2019-11-03] MEDS: Ascorbic Acid 500 MG Tab PO SCH (08:01)
[2019-11-03] MEDS: Zinc (Zinc Gluconate) 50 MG Tab PO SCH (08:01)
[2019-11-03] MEDS: Cyanocobalamin (Vitamin B12) 250 MCG Tab PO SCH (08:01)
[2019-11-03] MEDS: Lactobacillus Rhamnosus GG (Probiotic) Cap PO SCH (08:01)
[2019-11-03] MEDS: Fluticasone Propionate Nasal Spray 16 GM Bottle NASBOTH SCH ×2 (08:02→19:56)
[2019-11-04] MEDS: Heparin Sodium 100 Units/ML 3 ML Syringe FLUSH SCH ×3 (04:00→20:30)
[2019-11-04] MEDS: Sodium Chloride 0.9% 10 ML Syringe IV PRN ×4 (04:00→20:30)
[2019-11-04] MEDS: Piperacillin/Tazobactam 4.5 GM in Sodium Chloride 0.9% 100 ML IV SCH ×2 (07:56→16:33)
[2019-11-04] MEDS: Cholecalciferol (Vitamin D3) 25 MCG Tab PO SCH (08:04)
[2019-11-04] MEDS: Acetaminophen 325 MG Tab PO SCH ×2 (08:04→20:09)
[2019-11-04] MEDS: Multivitamins with Iron/Calcium/Folic Acid/Minerals Tab PO SCH (08:05)
[2019-11-04] MEDS: Cyanocobalamin (Vitamin B12) 250 MCG Tab PO SCH (08:05)
[2019-11-04] MEDS: Ascorbic Acid 500 MG Tab PO SCH (08:05)
[2019-11-04] MEDS: Lactobacillus Rhamnosus GG (Probiotic) Cap PO SCH (08:05)
[2019-11-04] MEDS: Zinc (Zinc Gluconate) 50 MG Tab PO SCH (08:05)
[2019-11-04] MEDS: Fluticasone Propionate Nasal Spray 16 GM Bottle NASBOTH SCH ×2 (08:06→20:08)
[2019-11-05] MEDS: Sodium Chloride 0.9% 10 ML Syringe IV PRN ×6 (00:12→19:59)
[2019-11-05] MEDS: Piperacillin/Tazobactam 4.5 GM in Sodium Chloride 0.9% 100 ML IV SCH ×3 (00:13→16:05)
[2019-11-05] MEDS: Heparin Sodium 100 Units/ML 3 ML Syringe FLUSH SCH ×4 (03:52→19:59)
[2019-11-05] MEDS: Multivitamins with Iron/Calcium/Folic Acid/Minerals Tab PO SCH (07:45)
[2019-11-05] MEDS: Cholecalciferol (Vitamin D3) 25 MCG Tab PO SCH (07:45)
[2019-11-05] MEDS: Zinc (Zinc Gluconate) 50 MG Tab PO SCH (07:45)
[2019-11-05] MEDS: Acetaminophen 325 MG Tab PO SCH ×2 (07:45→19:59)
[2019-11-05] MEDS: Ascorbic Acid 500 MG Tab PO SCH (07:45)
[2019-11-05] MEDS: Lactobacillus Rhamnosus GG (Probiotic) Cap PO SCH (07:45)
[2019-11-05] MEDS: Cyanocobalamin (Vitamin B12) 250 MCG Tab PO SCH (07:45)
[2019-11-05] MEDS: Fluticasone Propionate Nasal Spray 16 GM Bottle NASBOTH SCH ×2 (07:46→19:57)
[2019-11-06] MEDS: Sodium Chloride 0.9% 10 ML Syringe IV PRN ×3 (01:05→20:50)
[2019-11-06] MEDS: Piperacillin/Tazobactam 4.5 GM in Sodium Chloride 0.9% 100 ML IV SCH ×3 (01:06→16:33)
[2019-11-06] MEDS: Heparin Sodium 100 Units/ML 3 ML Syringe FLUSH SCH ×3 (05:10→20:51)
[2019-11-06] MEDS: Fluticasone Propionate Nasal Spray 16 GM Bottle NASBOTH SCH ×2 (07:38→19:21)
[2019-11-06] MEDS: Ascorbic Acid 500 MG Tab PO SCH (07:39)
[2019-11-06] MEDS: Multivitamins with Iron/Calcium/Folic Acid/Minerals Tab PO SCH (07:39)
[2019-11-06] MEDS: Lactobacillus Rhamnosus GG (Probiotic) Cap PO SCH (07:39)
[2019-11-06] MEDS: Zinc (Zinc Gluconate) 50 MG Tab PO SCH (07:39)
[2019-11-06] MEDS: Cholecalciferol (Vitamin D3) 25 MCG Tab PO SCH (07:39)
[2019-11-06] MEDS: Acetaminophen 325 MG Tab PO SCH ×2 (07:39→19:22)
[2019-11-06] MEDS: Cyanocobalamin (Vitamin B12) 250 MCG Tab PO SCH (07:39)
[2019-11-06] MEDS: Baclofen 10 MG Tab PO SCH ×2 (11:32→19:23)
[2019-11-07] MEDS: Sodium Chloride 0.9% 10 ML Syringe IV PRN ×7 (00:09→23:56)
[2019-11-07] MEDS: Piperacillin/Tazobactam 4.5 GM in Sodium Chloride 0.9% 100 ML IV SCH ×4 (00:09→23:54)
[2019-11-07] MEDS: Heparin Sodium 100 Units/ML 3 ML Syringe FLUSH SCH ×3 (04:35→20:31)
[2019-11-07] MEDS: Lactobacillus Rhamnosus GG (Probiotic) Cap PO SCH (08:04)
[2019-11-07] MEDS: Cyanocobalamin (Vitamin B12) 250 MCG Tab PO SCH (08:04)
[2019-11-07] MEDS: Ascorbic Acid 500 MG Tab PO SCH (08:05)
[2019-11-07] MEDS: Zinc (Zinc Gluconate) 50 MG Tab PO SCH (08:05)
[2019-11-07] MEDS: Baclofen 10 MG Tab PO SCH ×3 (08:05→19:19)
[2019-11-07] MEDS: Acetaminophen 325 MG Tab PO SCH ×2 (08:05→19:18)
[2019-11-07] MEDS: Cholecalciferol (Vitamin D3) 25 MCG Tab PO SCH (08:05)
[2019-11-07] MEDS: Fluticasone Propionate Nasal Spray 16 GM Bottle NASBOTH SCH ×2 (08:05→19:17)
[2019-11-07] MEDS: Multivitamins with Iron/Calcium/Folic Acid/Minerals Tab PO SCH (08:05)
[2019-11-08] MEDS: Sodium Chloride 0.9% 10 ML Syringe IV PRN ×2 (04:05→20:20)
[2019-11-08] MEDS: Heparin Sodium 100 Units/ML 3 ML Syringe FLUSH SCH ×3 (04:53→20:20)
[2019-11-08] MEDS: Zinc (Zinc Gluconate) 50 MG Tab PO SCH (08:25)
[2019-11-08] MEDS: Cholecalciferol (Vitamin D3) 25 MCG Tab PO SCH (08:25)
[2019-11-08] MEDS: Acetaminophen 325 MG Tab PO SCH ×2 (08:25→19:32)
[2019-11-08] MEDS: Multivitamins with Iron/Calcium/Folic Acid/Minerals Tab PO SCH (08:26)
[2019-11-08] MEDS: Cyanocobalamin (Vitamin B12) 250 MCG Tab PO SCH (08:26)
[2019-11-08] MEDS: Ascorbic Acid 500 MG Tab PO SCH (08:26)
[2019-11-08] MEDS: Lactobacillus Rhamnosus GG (Probiotic) Cap PO SCH (08:26)
[2019-11-08] MEDS: Baclofen 10 MG Tab PO SCH ×3 (08:26→19:33)
[2019-11-08] MEDS: Fluticasone Propionate Nasal Spray 16 GM Bottle NASBOTH SCH ×2 (08:28→19:32)
[2019-11-08] MEDS: Piperacillin/Tazobactam 4.5 GM in Sodium Chloride 0.9% 100 ML IV SCH ×2 (08:28→16:07)
[2019-11-09] MEDS: Sodium Chloride 0.9% 10 ML Syringe IV PRN ×6 (00:03→23:53)
[2019-11-09] MEDS: Piperacillin/Tazobactam 4.5 GM in Sodium Chloride 0.9% 100 ML IV SCH ×4 (00:04→23:51)
[2019-11-09] MEDS: Heparin Sodium 100 Units/ML 3 ML Syringe FLUSH SCH ×3 (04:17→20:40)
[2019-11-09] MEDS: Fluticasone Propionate Nasal Spray 16 GM Bottle NASBOTH SCH ×2 (08:27→19:32)
[2019-11-09] MEDS: Cholecalciferol (Vitamin D3) 25 MCG Tab PO SCH (08:28)
[2019-11-09] MEDS: Acetaminophen 325 MG Tab PO SCH ×2 (08:28→19:33)
[2019-11-09] MEDS: Baclofen 10 MG Tab PO SCH ×3 (08:28→19:33)
[2019-11-09] MEDS: Multivitamins with Iron/Calcium/Folic Acid/Minerals Tab PO SCH (08:28)
[2019-11-09] MEDS: Lactobacillus Rhamnosus GG (Probiotic) Cap PO SCH (08:28)
[2019-11-09] MEDS: Ascorbic Acid 500 MG Tab PO SCH (08:28)
[2019-11-09] MEDS: Cyanocobalamin (Vitamin B12) 250 MCG Tab PO SCH (08:28)
[2019-11-09] MEDS: Zinc (Zinc Gluconate) 50 MG Tab PO SCH (08:28)
[2019-11-10] MEDS: Heparin Sodium 100 Units/ML 3 ML Syringe FLUSH SCH ×3 (04:14→20:40)
[2019-11-10] MEDS: Sodium Chloride 0.9% 10 ML Syringe IV PRN ×6 (04:14→23:54)
[2019-11-10] MEDS: Piperacillin/Tazobactam 4.5 GM in Sodium Chloride 0.9% 100 ML IV SCH ×3 (07:57→23:55)
[2019-11-10] MEDS: Acetaminophen 325 MG Tab PO SCH ×2 (07:59→19:40)
[2019-11-10] MEDS: Baclofen 10 MG Tab PO SCH ×3 (07:59→19:40)
[2019-11-10] MEDS: Cyanocobalamin (Vitamin B12) 250 MCG Tab PO SCH (08:00)
[2019-11-10] MEDS: Ascorbic Acid 500 MG Tab PO SCH (08:00)
[2019-11-10] MEDS: Zinc (Zinc Gluconate) 50 MG Tab PO SCH (08:00)
[2019-11-10] MEDS: Cholecalciferol (Vitamin D3) 25 MCG Tab PO SCH (08:00)
[2019-11-10] MEDS: Multivitamins with Iron/Calcium/Folic Acid/Minerals Tab PO SCH (08:00)
[2019-11-10] MEDS: Lactobacillus Rhamnosus GG (Probiotic) Cap PO SCH (08:00)
[2019-11-10] MEDS: Fluticasone Propionate Nasal Spray 16 GM Bottle NASBOTH SCH ×2 (08:01→19:40)
[2019-11-11] MEDS: Sodium Chloride 0.9% 10 ML Syringe IV PRN ×5 (04:10→23:48)
[2019-11-11] MEDS: Heparin Sodium 100 Units/ML 3 ML Syringe FLUSH SCH ×3 (04:10→20:30)
[2019-11-11] MEDS: Piperacillin/Tazobactam 4.5 GM in Sodium Chloride 0.9% 100 ML IV SCH ×3 (07:58→23:47)
[2019-11-11] MEDS: Lactobacillus Rhamnosus GG (Probiotic) Cap PO SCH (08:01)
[2019-11-11] MEDS: Cyanocobalamin (Vitamin B12) 250 MCG Tab PO SCH (08:01)
[2019-11-11] MEDS: Zinc (Zinc Gluconate) 50 MG Tab PO SCH (08:01)
[2019-11-11] MEDS: Acetaminophen 325 MG Tab PO SCH ×2 (08:01→19:38)
[2019-11-11] MEDS: Multivitamins with Iron/Calcium/Folic Acid/Minerals Tab PO SCH (08:01)
[2019-11-11] MEDS: Ascorbic Acid 500 MG Tab PO SCH (08:01)
[2019-11-11] MEDS: Baclofen 10 MG Tab PO SCH ×3 (08:01→19:38)
[2019-11-11] MEDS: Cholecalciferol (Vitamin D3) 25 MCG Tab PO SCH (08:01)
[2019-11-11] MEDS: Fluticasone Propionate Nasal Spray 16 GM Bottle NASBOTH SCH ×2 (08:02→19:37)
[2019-11-12] MEDS: Heparin Sodium 100 Units/ML 3 ML Syringe FLUSH SCH ×4 (03:46→19:28)
[2019-11-12] MEDS: Sodium Chloride 0.9% 10 ML Syringe IV PRN ×3 (03:46→07:43)
[2019-11-12] MEDS: Acetaminophen 325 MG Tab PO PRN (06:09)
[2019-11-12] MEDS: Piperacillin/Tazobactam 4.5 GM in Sodium Chloride 0.9% 100 ML IV SCH ×4 (06:12→23:20)
[2019-11-12] MEDS: Acetaminophen 325 MG Tab PO SCH ×2 (07:39→19:28)
[2019-11-12] MEDS: Baclofen 10 MG Tab PO SCH ×3 (07:40→19:28)
[2019-11-12] MEDS: Multivitamins with Iron/Calcium/Folic Acid/Minerals Tab PO SCH (07:40)
[2019-11-12] MEDS: Lactobacillus Rhamnosus GG (Probiotic) Cap PO SCH (07:40)
[2019-11-12] MEDS: Cholecalciferol (Vitamin D3) 25 MCG Tab PO SCH (07:40)
[2019-11-12] MEDS: Ascorbic Acid 500 MG Tab PO SCH (07:40)
[2019-11-12] MEDS: Cyanocobalamin (Vitamin B12) 250 MCG Tab PO SCH (07:40)
[2019-11-12] MEDS: Zinc (Zinc Gluconate) 50 MG Tab PO SCH (07:40)
[2019-11-12] MEDS: Fluticasone Propionate Nasal Spray 16 GM Bottle NASBOTH SCH ×2 (07:41→19:29)
[2019-11-13] MEDS: Heparin Sodium 100 Units/ML 3 ML Syringe FLUSH SCH ×3 (03:36→19:40)
[2019-11-13] MEDS: Fluticasone Propionate Nasal Spray 16 GM Bottle NASBOTH SCH ×2 (08:26→19:39)
[2019-11-13] MEDS: Multivitamins with Iron/Calcium/Folic Acid/Minerals Tab PO SCH (08:27)
[2019-11-13] MEDS: Cholecalciferol (Vitamin D3) 25 MCG Tab PO SCH (08:30)
[2019-11-13] MEDS: Baclofen 10 MG Tab PO SCH ×3 (08:32→19:39)
[2019-11-13] MEDS: Cyanocobalamin (Vitamin B12) 250 MCG Tab PO SCH (08:33)
[2019-11-13] MEDS: Zinc (Zinc Gluconate) 50 MG Tab PO SCH (08:33)
[2019-11-13] MEDS: Ascorbic Acid 500 MG Tab PO SCH (08:34)
[2019-11-13] MEDS: Lactobacillus Rhamnosus GG (Probiotic) Cap PO SCH (08:34)
[2019-11-13] MEDS: Acetaminophen 325 MG Tab PO SCH ×2 (08:35→19:39)
[2019-11-13] MEDS: Piperacillin/Tazobactam 4.5 GM in Sodium Chloride 0.9% 100 ML IV SCH ×2 (08:38→16:12)
[2019-11-13] MEDS: Sodium Chloride 0.9% 10 ML Syringe IV PRN ×2 (13:09→16:13)
[2019-11-14] MEDS: Piperacillin/Tazobactam 4.5 GM in Sodium Chloride 0.9% 100 ML IV SCH ×3 (00:15→16:38)
[2019-11-14] MEDS: Heparin Sodium 100 Units/ML 3 ML Syringe FLUSH SCH ×4 (03:13→19:49)
[2019-11-14] MEDS: Fluticasone Propionate Nasal Spray 16 GM Bottle NASBOTH SCH ×2 (08:36→19:56)
[2019-11-14] MEDS: Acetaminophen 325 MG Tab PO SCH ×2 (08:37→19:56)
[2019-11-14] MEDS: Cholecalciferol (Vitamin D3) 25 MCG Tab PO SCH (08:38)
[2019-11-14] MEDS: Cyanocobalamin (Vitamin B12) 250 MCG Tab PO SCH (08:39)
[2019-11-14] MEDS: Multivitamins with Iron/Calcium/Folic Acid/Minerals Tab PO SCH (08:39)
[2019-11-14] MEDS: Baclofen 10 MG Tab PO SCH ×3 (08:39→19:57)
[2019-11-14] MEDS: Ascorbic Acid 500 MG Tab PO SCH (08:40)
[2019-11-14] MEDS: Lactobacillus Rhamnosus GG (Probiotic) Cap PO SCH (08:40)
[2019-11-14] MEDS: Zinc (Zinc Gluconate) 50 MG Tab PO SCH (08:40)
--- NOTE | 2019-11-14 09:35 | PCM.PN ---
- General Info Date of Service: 11/14/19 Subjective Update: 44 yo male seen today for swing bed follow-up. He states that he is feeling well overall. He is still having a significant amount of pain in his right arm. He was able to get a follow-up with neurology that is scheduled for next week and plans to discuss this with them at that time. He denies pain anywhere else. He has not had any fever or chills. His suprapubic catheter and ostomy seem to be functioning well. He has had some constipation and he is going to do prune juice today for that. His mood has been "ok." He has followed up with ID and notes that the plan is to see plastic surgery again once his antibiotics are completed. - Review of Systems General: Reports: No Symptoms HEENT: Reports: No Symptoms Pulmonary: Reports: No Symptoms Cardiovascular: Reports: No Symptoms Gastrointestinal: Reports: No Symptoms Genitourinary: Reports: No Symptoms Musculoskeletal: Reports: No Symptoms Skin: Reports: No Symptoms Neurological: Reports: No Symptoms Psychiatric: Reports: No Symptoms - Patient Data Vitals - Most Recent: Last Vital Signs Temp 36.7 C 11/14/19 06:00 Pulse 73 11/14/19 06:00 Resp 17 11/14/19 06:00 BP 106/68 11/14/19 06:00 Pulse Ox 100 11/14/19 06:00 Weight - Most Recent: 130.181 kg I&O - Last 24 Hours: Intake & Output 11/13/19 11/14/19 11/14/19 22:59 06:59 14:59 Intake Total 520 600 510 Output Total 2400 1150 Balance -1880 -550 510 Med Orders - Current: Current Medications Acetaminophen (Tylenol) 650 mg PO BID [facility] Last Admin: 11/14/19 08:37 Dose: 650 mg Documented by: Acetaminophen (Tylenol) 650 mg PO Q6H PRN PRN Reason: Pain Last Admin: 11/12/19 06:09 Dose: 650 mg Documented by: Ascorbic Acid (Vitamin C) 500 mg PO DAILY [facility] Last Admin: 11/14/19 08:40 Dose: 500 mg Documented by: Baclofen (Lioresal) 5 mg PO TID [facility] Last Admin: 11/14/19 08:39 Dose: 5 mg Documented by: Cholecalciferol (Vitamin D3) 100 mcg PO DAILY [facility] Last Admin: 11/14/19 08:38 Dose: 100 mcg Documented by: Cyanocobalamin (Vitamin B12) 500 mcg PO DAILY [facility] Last Admin: 11/14/19 08:39 Dose: 500 mcg Documented by: Fluticasone Propionate (Flonase) 0 gm NASBOTH BID [facility] Last Admin: 11/14/19 08:36 Dose: 1 spray Documented by: Heparin Sodium (Porcine) (Heparin Lock Flush 100 Units/Ml) 300 unit FLUSH ASDIRECTED PRN PRN Reason: Keep Vein Open Last Admin: 10/31/19 12:01 Dose: 300 unit Documented by: Heparin Sodium (Porcine) (Heparin Lock Flush 100 Units/Ml) 300 unit FLUSH Q8H [facility] Stop: 11/25/19 23:59 Last Admin: 11/14/19 03:16 Dose: Not Given Documented by: Piperacillin Sod/Tazobactam (Sod 4.5 gm/ Sodium Chloride) 100 mls @ 25 mls/hr IV Q8H [facility] Stop: 11/25/19 23:58 Last Admin: 11/14/19 08:30 Dose: 25 mls/hr Documented by: Lactobacillus Rhamnosus (Culturelle) 1 cap PO DAILY [facility] Last Admin: 11/14/19 08:40 Dose: 1 cap Documented by: Miconazole (Desenex 2%) 0 gm TOP BID PRN PRN Reason: Rash Multivitamins/Minerals (Thera M Plus) 1 tab PO DAILY [facility] Last Admin: 11/14/19 08:39 Dose: 1 tab Documented by: Senna/Docusate Sodium (Senna Plus) 2 tab PO BEDTIME PRN PRN Reason: Constipation Last Admin: 11/13/19 19:39 Dose: 2 tab Documented by: Sodium Chloride (Saline Flush) 10 ml IV ASDIRECTED PRN PRN Reason: Keep Vein Open Last Admin: 11/13/19 16:13 Dose: 10 ml Documented by: Zinc Gluconate (Zinc) 50 mg PO DAILY [facility] Last Admin: 11/14/19 08:40 Dose: 50 mg Documented by: Discontinued Medications Alteplase, Recombinant (Cathflo Activase) 2 mg IVPUSH ONETIME ONE Stop: 10/23/19 12:45 Last Admin: 10/23/19 13:30 Dose: 2 mg Documented by: Sodium Bicarbonate (Sodium Bicarbonate 8.4%) Confirm Administered Dose 50 meq .ROUTE .STK-MED ONE Stop: 11/02/19 12:42 Last Admin: 11/02/19 13:28 Dose: Not Given Documented by: - Exam General: Alert, Oriented, Cooperative, No Acute Distress HEENT: Mucous Membr. Moist/[place] Neck: Supple, Trachea Midline, No Thyromegaly. No: Lymphadenopathy Lungs: Clear to Auscultation, Normal Respiratory Effort Cardiovascular: Regular Rate, Regular Rhythm, No Murmurs GI/Abdominal Exam: Normal Bowel Sounds, Soft, Non-Tender, No Organomegaly, No D istention, No Mass Extremities: Non-Tender, No Pedal Edema, Normal Capillary Refill Peripheral Pulses: 2+: Radial (L), Radial (R) Skin: Warm, Dry Neurological: No New Focal Deficit Sepsis Event Note - Evaluation Sepsis Screening Result: No Definite Risk - Focused Exam Vital Signs: Vital Signs Temp Pulse Resp BP Pulse Ox 11/14/19 06:00 36.7 C 73 17 106/68 100 Date Exam was Performed: 11/14/19 Time Exam was Performed: 09:27 - Problem List & Annotations (1) Sacral decubitus ulcer SNOMED Code(s): 171512375 Code(s): L89.159 - PRESSURE ULCER OF SACRAL REGION, UNSPECIFIED STAGE Status: Acute Current Visit: No Qualifiers: Pressure injury stage: unspecified pressure injury stage Qualified Code(s): L89.159 - Pressure ulcer of sacral region, unspecified stage (2) Sacral osteomyelitis SNOMED Code(s): 175998229, 488962124 Code(s): M46.28 - OSTEOMYELITIS OF VERTEBRA, SACRAL AND SACROCOCCYGEAL REGION Status: Acute Current Visit: No (3) Chronic sinusitis SNOMED Code(s): 19403430 Code(s): J32.9 - CHRONIC SINUSITIS, UNSPECIFIED Status: Chronic Current Visit: No (4) Constipation SNOMED Code(s): 91596500 Code(s): K59.00 - CONSTIPATION, UNSPECIFIED Status: Chronic Current Visit: No (5) Hypertension SNOMED Code(s): 34865126 Code(s): I10 - ESSENTIAL (PRIMARY) HYPERTENSION Status: Chronic Current Visit: No (6) Multiple sclerosis SNOMED Code(s): 30291756 Code(s): G35 - MULTIPLE SCLEROSIS Status: Chronic Current Visit: No (7) Neurogenic bladder SNOMED Code(s): 166533939 Code(s): N31.9 - NEUROMUSCULAR DYSFUNCTION OF BLADDER, UNSPECIFIED Status: Chronic Current Visit: No (8) Adjustment disorder SNOMED Code(s): 22241504 Code(s): F43.20 - ADJUSTMENT DISORDER, UNSPECIFIED Status: Acute Current Visit: No Qualifiers: Adjustment disorder type: with depressed mood Qualified Code(s): F43.21 - Adjustment disorder with depressed mood - Problem List Review Problem List Initiated/Reviewed/Updated: Yes - My Orders Last 24 Hours: My Active Orders 11/20/19 05:00 ASPARTATE AMNIOTRANSFERASE,AST [CHEM] Q7D CBC WITH AUTO DIFF [HEME] Q7D CREATININE W/GFR [CHEM] Q7D CRP [C-REACTIVE PROTEIN] [CHEM] Q7D ESR [SEDIMENTATION RATE AUTO] [HEME] Q7D 11/27/19 05:00 ASPARTATE AMNIOTRANSFERASE,AST [CHEM] Q7D CBC WITH AUTO DIFF [HEME] Q7D CREATININE W/GFR [CHEM] Q7D CRP [C-REACTIVE PROTEIN] [CHEM] Q7D ESR [SEDIMENTATION RATE AUTO] [HEME] Q7D - Assessment Assessment:: 44 yo male on [facility] swing bed for wound cares related to a sacral pressure ulcer. No complications or new events since admission. - Plan Plan:: #1 Sacral decubitus ulcer #2 Sacral osteomyelitis - Continue wound cares as per orders from [place]. - Wound clinic follow-up is scheduled for later this month. - Continue antibiotics per ID. He will complete his antibiotics on 11/25/2019. #3 Chronic sinusitis #4 Constipation #5 Hypertension #6 MS - Continue home medications. #7 Neurogenic bladder - Suprapubic catheter is working well. #8 Adjustment disorder - Affect remains improved upon most recent return from [place]. - Will continue to monitor closely. Patient is admitted to swing bed as above - duration is likely manager intermediate. He will for sure be admitted to swing bed until his wound is healed. Code status is DNR/DNI - discussed on admission. No indication for VTE prophylaxis as he is at his usual functional baseline.
[2019-11-14] MEDS: Sodium Chloride 0.9% 10 ML Syringe IV PRN ×3 (12:33→19:48)
[2019-11-15] MEDS: Piperacillin/Tazobactam 4.5 GM in Sodium Chloride 0.9% 100 ML IV SCH ×4 (00:04→23:47)
[2019-11-15] MEDS: Sodium Chloride 0.9% 10 ML Syringe IV PRN ×4 (00:04→21:06)
[2019-11-15] MEDS: Heparin Sodium 100 Units/ML 3 ML Syringe FLUSH SCH ×3 (04:15→21:08)
[2019-11-15] MEDS: Fluticasone Propionate Nasal Spray 16 GM Bottle NASBOTH SCH ×2 (08:51→21:08)
[2019-11-15] MEDS: Multivitamins with Iron/Calcium/Folic Acid/Minerals Tab PO SCH (08:54)
[2019-11-15] MEDS: Zinc (Zinc Gluconate) 50 MG Tab PO SCH (08:54)
[2019-11-15] MEDS: Cyanocobalamin (Vitamin B12) 250 MCG Tab PO SCH (08:54)
[2019-11-15] MEDS: Cholecalciferol (Vitamin D3) 25 MCG Tab PO SCH (08:54)
[2019-11-15] MEDS: Lactobacillus Rhamnosus GG (Probiotic) Cap PO SCH (08:54)
[2019-11-15] MEDS: Baclofen 10 MG Tab PO SCH ×3 (08:54→21:06)
[2019-11-15] MEDS: Ascorbic Acid 500 MG Tab PO SCH (08:55)
[2019-11-15] MEDS: Acetaminophen 325 MG Tab PO SCH ×2 (08:55→21:07)
[2019-11-16] MEDS: Heparin Sodium 100 Units/ML 3 ML Syringe FLUSH SCH ×3 (04:39→20:39)
[2019-11-16] MEDS: Piperacillin/Tazobactam 4.5 GM in Sodium Chloride 0.9% 100 ML IV SCH ×2 (08:16→17:22)
[2019-11-16] MEDS: Fluticasone Propionate Nasal Spray 16 GM Bottle NASBOTH SCH ×2 (08:30→20:37)
[2019-11-16] MEDS: Acetaminophen 325 MG Tab PO SCH ×2 (08:30→20:38)
[2019-11-16] MEDS: Baclofen 10 MG Tab PO SCH ×3 (08:33→20:37)
[2019-11-16] MEDS: Cholecalciferol (Vitamin D3) 25 MCG Tab PO SCH (08:33)
[2019-11-16] MEDS: Ascorbic Acid 500 MG Tab PO SCH (08:33)
[2019-11-16] MEDS: Lactobacillus Rhamnosus GG (Probiotic) Cap PO SCH (08:33)
[2019-11-16] MEDS: Multivitamins with Iron/Calcium/Folic Acid/Minerals Tab PO SCH (08:33)
[2019-11-16] MEDS: Cyanocobalamin (Vitamin B12) 250 MCG Tab PO SCH (08:33)
[2019-11-16] MEDS: Zinc (Zinc Gluconate) 50 MG Tab PO SCH (08:33)
[2019-11-16] MEDS: Sodium Chloride 0.9% 10 ML Syringe IV PRN ×3 (13:16→20:40)
[2019-11-17] MEDS: Piperacillin/Tazobactam 4.5 GM in Sodium Chloride 0.9% 100 ML IV SCH ×3 (00:17→17:23)
[2019-11-17] MEDS: Heparin Sodium 100 Units/ML 3 ML Syringe FLUSH SCH ×3 (04:33→20:56)
[2019-11-17] MEDS: Acetaminophen 325 MG Tab PO PRN ×2 (04:38→12:08)
[2019-11-17] MEDS: Sodium Chloride 0.9% 10 ML Syringe IV PRN ×4 (04:40→20:58)
[2019-11-17] MEDS: Fluticasone Propionate Nasal Spray 16 GM Bottle NASBOTH SCH ×2 (08:08→20:54)
[2019-11-17] MEDS: Cholecalciferol (Vitamin D3) 25 MCG Tab PO SCH (08:09)
[2019-11-17] MEDS: Baclofen 10 MG Tab PO SCH ×3 (08:09→20:55)
[2019-11-17] MEDS: Zinc (Zinc Gluconate) 50 MG Tab PO SCH (08:09)
[2019-11-17] MEDS: Ascorbic Acid 500 MG Tab PO SCH (08:09)
[2019-11-17] MEDS: Acetaminophen 325 MG Tab PO SCH ×2 (08:10→20:55)
[2019-11-17] MEDS: Multivitamins with Iron/Calcium/Folic Acid/Minerals Tab PO SCH (08:10)
[2019-11-17] MEDS: Lactobacillus Rhamnosus GG (Probiotic) Cap PO SCH (08:10)
[2019-11-17] MEDS: Cyanocobalamin (Vitamin B12) 250 MCG Tab PO SCH (08:10)
[2019-11-18] MEDS: Sodium Chloride 0.9% 10 ML Syringe IV PRN ×5 (00:09→22:37)
[2019-11-18] MEDS: Heparin Sodium 100 Units/ML 3 ML Syringe FLUSH SCH ×4 (04:28→21:23)
[2019-11-18] MEDS: Lactobacillus Rhamnosus GG (Probiotic) Cap PO SCH (09:44)
[2019-11-18] MEDS: Fluticasone Propionate Nasal Spray 16 GM Bottle NASBOTH SCH ×2 (09:45→19:22)
[2019-11-18] MEDS: Acetaminophen 325 MG Tab PO SCH ×2 (09:45→19:23)
[2019-11-18] MEDS: Cyanocobalamin (Vitamin B12) 250 MCG Tab PO SCH (09:45)
[2019-11-18] MEDS: Multivitamins with Iron/Calcium/Folic Acid/Minerals Tab PO SCH (09:45)
[2019-11-18] MEDS: Baclofen 10 MG Tab PO SCH ×3 (09:45→19:23)
[2019-11-18] MEDS: Cholecalciferol (Vitamin D3) 25 MCG Tab PO SCH (09:45)
[2019-11-18] MEDS: Ascorbic Acid 500 MG Tab PO SCH (09:45)
[2019-11-18] MEDS: Piperacillin/Tazobactam 4.5 GM in Sodium Chloride 0.9% 100 ML IV SCH ×4 (09:46→22:37)
[2019-11-18] MEDS: Zinc (Zinc Gluconate) 50 MG Tab PO SCH (09:46)
[2019-11-18] MEDS ORDERED: Piperacillin/Tazobactam 4.5 GM in Sodium Chloride 0.9% 100 ML IV ONE (15:00)
[2019-11-18] MEDS: Acetaminophen 325 MG Tab PO PRN (15:12)
[2019-11-18] MEDS: Heparin Sodium 100 Units/ML 3 ML Syringe FLUSH PRN (16:05)
[2019-11-19] MEDS: Sodium Chloride 0.9% 10 ML Syringe IV PRN ×6 (03:06→22:29)
[2019-11-19] MEDS: Heparin Sodium 100 Units/ML 3 ML Syringe FLUSH SCH ×3 (03:06→19:23)
[2019-11-19] MEDS: Piperacillin/Tazobactam 4.5 GM in Sodium Chloride 0.9% 100 ML IV SCH ×3 (06:43→22:29)
[2019-11-19] MEDS: Acetaminophen 325 MG Tab PO PRN (06:44)
[2019-11-19] MEDS: Fluticasone Propionate Nasal Spray 16 GM Bottle NASBOTH SCH ×2 (08:10→19:29)
[2019-11-19] MEDS: Acetaminophen 325 MG Tab PO SCH ×2 (08:11→19:23)
[2019-11-19] MEDS: Cyanocobalamin (Vitamin B12) 250 MCG Tab PO SCH (08:11)
[2019-11-19] MEDS: Cholecalciferol (Vitamin D3) 25 MCG Tab PO SCH (08:11)
[2019-11-19] MEDS: Zinc (Zinc Gluconate) 50 MG Tab PO SCH (08:11)
[2019-11-19] MEDS: Multivitamins with Iron/Calcium/Folic Acid/Minerals Tab PO SCH (08:11)
[2019-11-19] MEDS: Lactobacillus Rhamnosus GG (Probiotic) Cap PO SCH (08:11)
[2019-11-19] MEDS: Baclofen 10 MG Tab PO SCH ×3 (08:11→19:24)
[2019-11-19] MEDS: Ascorbic Acid 500 MG Tab PO SCH (08:11)
[2019-11-20] MEDS: Sodium Chloride 0.9% 10 ML Syringe IV PRN ×4 (02:45→22:54)
[2019-11-20] MEDS: Heparin Sodium 100 Units/ML 3 ML Syringe FLUSH SCH ×3 (02:50→19:29)
[2019-11-20] MEDS: Piperacillin/Tazobactam 4.5 GM in Sodium Chloride 0.9% 100 ML IV SCH ×3 (06:37→22:54)
[2019-11-20] MEDS: Heparin Sodium 100 Units/ML 3 ML Syringe FLUSH PRN (06:37)
[2019-11-20] MEDS: Cyanocobalamin (Vitamin B12) 250 MCG Tab PO SCH (08:52)
[2019-11-20] MEDS: Baclofen 10 MG Tab PO SCH ×3 (08:52→19:29)
[2019-11-20] MEDS: Multivitamins with Iron/Calcium/Folic Acid/Minerals Tab PO SCH (08:52)
[2019-11-20] MEDS: Ascorbic Acid 500 MG Tab PO SCH (08:52)
[2019-11-20] MEDS: Acetaminophen 325 MG Tab PO SCH ×2 (08:52→19:30)
[2019-11-20] MEDS: Lactobacillus Rhamnosus GG (Probiotic) Cap PO SCH (08:53)
[2019-11-20] MEDS: Fluticasone Propionate Nasal Spray 16 GM Bottle NASBOTH SCH ×2 (08:53→19:30)
[2019-11-20] MEDS: Zinc (Zinc Gluconate) 50 MG Tab PO SCH (08:53)
[2019-11-20] MEDS: Cholecalciferol (Vitamin D3) 25 MCG Tab PO SCH (08:54)
[2019-11-21] MEDS: Sodium Chloride 0.9% 10 ML Syringe IV PRN ×3 (02:53→19:50)
[2019-11-21] MEDS: Heparin Sodium 100 Units/ML 3 ML Syringe FLUSH SCH ×3 (02:55→19:50)
[2019-11-21] MEDS: Piperacillin/Tazobactam 4.5 GM in Sodium Chloride 0.9% 100 ML IV SCH ×3 (06:45→23:06)
[2019-11-21] MEDS: Cholecalciferol (Vitamin D3) 25 MCG Tab PO SCH (07:40)
[2019-11-21] MEDS: Zinc (Zinc Gluconate) 50 MG Tab PO SCH (07:40)
[2019-11-21] MEDS: Baclofen 10 MG Tab PO SCH ×3 (07:40→19:52)
[2019-11-21] MEDS: Lactobacillus Rhamnosus GG (Probiotic) Cap PO SCH (07:40)
[2019-11-21] MEDS: Acetaminophen 325 MG Tab PO SCH ×2 (07:40→19:53)
[2019-11-21] MEDS: Fluticasone Propionate Nasal Spray 16 GM Bottle NASBOTH SCH ×2 (07:40→19:51)
[2019-11-21] MEDS: Ascorbic Acid 500 MG Tab PO SCH (07:40)
[2019-11-21] MEDS: Multivitamins with Iron/Calcium/Folic Acid/Minerals Tab PO SCH (07:41)
[2019-11-21] MEDS: Cyanocobalamin (Vitamin B12) 250 MCG Tab PO SCH (07:43)
[2019-11-22] MEDS: Sodium Chloride 0.9% 10 ML Syringe IV PRN ×6 (03:15→23:00)
[2019-11-22] MEDS: Heparin Sodium 100 Units/ML 3 ML Syringe FLUSH SCH ×3 (03:32→19:53)
[2019-11-22] MEDS: Piperacillin/Tazobactam 4.5 GM in Sodium Chloride 0.9% 100 ML IV SCH ×3 (06:18→23:19)
[2019-11-22] MEDS: BACLOFEN 10 MG PO SCH ×3 (08:56→19:56)
[2019-11-22] MEDS: Lactobacillus Rhamnosus GG (Probiotic) Cap PO SCH (08:56)
[2019-11-22] MEDS: Acetaminophen 325 MG Tab PO SCH ×2 (08:57→19:56)
[2019-11-22] MEDS: Cholecalciferol (Vitamin D3) 25 MCG Tab PO SCH (09:00)
[2019-11-22] MEDS: Fluticasone Propionate Nasal Spray 16 GM Bottle NASBOTH SCH ×2 (09:02→19:55)
[2019-11-22] MEDS: Zinc (Zinc Gluconate) 50 MG Tab PO SCH (09:05)
[2019-11-22] MEDS: Cyanocobalamin (Vitamin B12) 250 MCG Tab PO SCH (09:05)
[2019-11-22] MEDS: Multivitamins with Iron/Calcium/Folic Acid/Minerals Tab PO SCH (09:05)
[2019-11-22] MEDS: Ascorbic Acid 500 MG Tab PO SCH (09:06)
[2019-11-23] MEDS: Sodium Chloride 0.9% 10 ML Syringe IV PRN ×6 (03:14→23:14)
[2019-11-23] MEDS: Heparin Sodium 100 Units/ML 3 ML Syringe FLUSH SCH ×3 (03:14→20:23)
[2019-11-23] MEDS: Piperacillin/Tazobactam 4.5 GM in Sodium Chloride 0.9% 100 ML IV SCH ×3 (07:27→23:13)
[2019-11-23] MEDS: Cholecalciferol (Vitamin D3) 25 MCG Tab PO SCH (07:31)
[2019-11-23] MEDS: Ascorbic Acid 500 MG Tab PO SCH (07:32)
[2019-11-23] MEDS: Acetaminophen 325 MG Tab PO SCH ×2 (07:32→20:24)
[2019-11-23] MEDS: Lactobacillus Rhamnosus GG (Probiotic) Cap PO SCH (07:32)
[2019-11-23] MEDS: Multivitamins with Iron/Calcium/Folic Acid/Minerals Tab PO SCH (07:32)
[2019-11-23] MEDS: Cyanocobalamin (Vitamin B12) 250 MCG Tab PO SCH (07:32)
[2019-11-23] MEDS: Zinc (Zinc Gluconate) 50 MG Tab PO SCH (07:32)
[2019-11-23] MEDS: Fluticasone Propionate Nasal Spray 16 GM Bottle NASBOTH SCH ×2 (10:24→20:24)
[2019-11-23] MEDS: BACLOFEN 10 MG PO SCH ×3 (10:25→20:24)
[2019-11-24] MEDS: Heparin Sodium 100 Units/ML 3 ML Syringe FLUSH SCH ×3 (03:34→19:10)
[2019-11-24] MEDS: Sodium Chloride 0.9% 10 ML Syringe IV PRN ×6 (03:34→23:02)
[2019-11-24] MEDS: Piperacillin/Tazobactam 4.5 GM in Sodium Chloride 0.9% 100 ML IV SCH ×3 (06:54→23:03)
[2019-11-24] MEDS: Fluticasone Propionate Nasal Spray 16 GM Bottle NASBOTH SCH ×2 (07:47→19:15)
[2019-11-24] MEDS: BACLOFEN 10 MG PO SCH ×3 (07:47→19:13)
[2019-11-24] MEDS: Acetaminophen 325 MG Tab PO SCH ×2 (07:49→19:13)
[2019-11-24] MEDS: Cholecalciferol (Vitamin D3) 25 MCG Tab PO SCH (07:50)
[2019-11-24] MEDS: Zinc (Zinc Gluconate) 50 MG Tab PO SCH (07:50)
[2019-11-24] MEDS: Multivitamins with Iron/Calcium/Folic Acid/Minerals Tab PO SCH (07:50)
[2019-11-24] MEDS: Cyanocobalamin (Vitamin B12) 250 MCG Tab PO SCH (07:50)
[2019-11-24] MEDS: Lactobacillus Rhamnosus GG (Probiotic) Cap PO SCH (07:50)
[2019-11-24] MEDS: Ascorbic Acid 500 MG Tab PO SCH (07:51)
[2019-11-25] MEDS: Sodium Chloride 0.9% 10 ML Syringe IV PRN ×6 (03:18→23:20)
[2019-11-25] MEDS: Heparin Sodium 100 Units/ML 3 ML Syringe FLUSH SCH ×3 (03:25→20:08)
[2019-11-25] MEDS: Piperacillin/Tazobactam 4.5 GM in Sodium Chloride 0.9% 100 ML IV SCH ×3 (07:08→23:20)
[2019-11-25] MEDS: Multivitamins with Iron/Calcium/Folic Acid/Minerals Tab PO SCH (07:40)
[2019-11-25] MEDS: Cholecalciferol (Vitamin D3) 25 MCG Tab PO SCH (07:40)
[2019-11-25] MEDS: Fluticasone Propionate Nasal Spray 16 GM Bottle NASBOTH SCH ×2 (07:40→20:09)
[2019-11-25] MEDS: Ascorbic Acid 500 MG Tab PO SCH (07:41)
[2019-11-25] MEDS: Lactobacillus Rhamnosus GG (Probiotic) Cap PO SCH (07:41)
[2019-11-25] MEDS: Cyanocobalamin (Vitamin B12) 250 MCG Tab PO SCH (07:41)
[2019-11-25] MEDS: Zinc (Zinc Gluconate) 50 MG Tab PO SCH (07:41)
[2019-11-25] MEDS: Acetaminophen 325 MG Tab PO SCH ×2 (07:41→20:08)
[2019-11-25] MEDS: BACLOFEN 10 MG PO SCH ×3 (07:42→20:09)
[2019-11-26] MEDS: Heparin Sodium 100 Units/ML 3 ML Syringe FLUSH PRN (03:53)
[2019-11-26] MEDS: Sodium Chloride 0.9% 10 ML Syringe IV PRN (03:54)
[2019-11-26] MEDS: Cholecalciferol (Vitamin D3) 25 MCG Tab PO SCH (07:28)
[2019-11-26] MEDS: Acetaminophen 325 MG Tab PO SCH ×2 (07:28→20:33)
[2019-11-26] MEDS: Lactobacillus Rhamnosus GG (Probiotic) Cap PO SCH (07:28)
[2019-11-26] MEDS: Ascorbic Acid 500 MG Tab PO SCH (07:28)
[2019-11-26] MEDS: Cyanocobalamin (Vitamin B12) 250 MCG Tab PO SCH (07:28)
[2019-11-26] MEDS: Multivitamins with Iron/Calcium/Folic Acid/Minerals Tab PO SCH (07:28)
[2019-11-26] MEDS: Zinc (Zinc Gluconate) 50 MG Tab PO SCH (07:28)
[2019-11-26] MEDS: Fluticasone Propionate Nasal Spray 16 GM Bottle NASBOTH SCH ×2 (07:29→20:32)
[2019-11-26] MEDS: BACLOFEN 10 MG PO SCH ×3 (07:29→20:32)
[2019-11-27] MEDS: Heparin Sodium 100 Units/ML 3 ML Syringe FLUSH PRN (06:45)
[2019-11-27] MEDS: Sodium Chloride 0.9% 10 ML Syringe IV PRN (06:45)
[2019-11-27] MEDS: BACLOFEN 10 MG PO SCH ×3 (07:40→19:40)
[2019-11-27] MEDS: Fluticasone Propionate Nasal Spray 16 GM Bottle NASBOTH SCH ×2 (07:40→19:40)
[2019-11-27] MEDS: Ascorbic Acid 500 MG Tab PO SCH (07:41)
[2019-11-27] MEDS: Multivitamins with Iron/Calcium/Folic Acid/Minerals Tab PO SCH (07:41)
[2019-11-27] MEDS: Cyanocobalamin (Vitamin B12) 250 MCG Tab PO SCH (07:41)
[2019-11-27] MEDS: Cholecalciferol (Vitamin D3) 25 MCG Tab PO SCH (07:41)
[2019-11-27] MEDS: Acetaminophen 325 MG Tab PO SCH ×2 (07:41→19:42)
[2019-11-27] MEDS: Lactobacillus Rhamnosus GG (Probiotic) Cap PO SCH (07:41)
[2019-11-27] MEDS: Zinc (Zinc Gluconate) 50 MG Tab PO SCH (07:41)
[2019-11-27] MEDS: Acetaminophen 325 MG Tab PO PRN (14:23)
[2019-11-28] MEDS: Acetaminophen 325 MG Tab PO PRN (02:16)
[2019-11-28] MEDS: Acetaminophen 325 MG Tab PO SCH ×2 (08:39→20:04)
[2019-11-28] MEDS: Cholecalciferol (Vitamin D3) 25 MCG Tab PO SCH (08:40)
[2019-11-28] MEDS: Multivitamins with Iron/Calcium/Folic Acid/Minerals Tab PO SCH (08:41)
[2019-11-28] MEDS: Fluticasone Propionate Nasal Spray 16 GM Bottle NASBOTH SCH ×2 (08:41→20:04)
[2019-11-28] MEDS: Lactobacillus Rhamnosus GG (Probiotic) Cap PO SCH (08:41)
[2019-11-28] MEDS: Ascorbic Acid 500 MG Tab PO SCH (08:41)
[2019-11-28] MEDS: Zinc (Zinc Gluconate) 50 MG Tab PO SCH (08:41)
[2019-11-28] MEDS: Cyanocobalamin (Vitamin B12) 250 MCG Tab PO SCH (08:41)
[2019-11-28] MEDS: BACLOFEN 10 MG PO SCH ×3 (08:42→20:04)
[2019-11-29] MEDS: Fluticasone Propionate Nasal Spray 16 GM Bottle NASBOTH SCH ×2 (09:38→20:48)
[2019-11-29] MEDS: Acetaminophen 325 MG Tab PO SCH ×2 (09:38→20:48)
[2019-11-29] MEDS: Cholecalciferol (Vitamin D3) 25 MCG Tab PO SCH (09:39)
[2019-11-29] MEDS: BACLOFEN 10 MG PO SCH ×3 (09:40→20:49)
[2019-11-29] MEDS: Multivitamins with Iron/Calcium/Folic Acid/Minerals Tab PO SCH (09:40)
[2019-11-29] MEDS: Cyanocobalamin (Vitamin B12) 250 MCG Tab PO SCH (09:40)
[2019-11-29] MEDS: Ascorbic Acid 500 MG Tab PO SCH (09:40)
[2019-11-29] MEDS: Lactobacillus Rhamnosus GG (Probiotic) Cap PO SCH (09:40)
[2019-11-29] MEDS: Zinc (Zinc Gluconate) 50 MG Tab PO SCH (09:41)
[2019-11-29] MEDS: Acetaminophen 325 MG Tab PO PRN (16:16)
[2019-11-30] MEDS: Fluticasone Propionate Nasal Spray 16 GM Bottle NASBOTH SCH ×2 (09:02→19:40)
[2019-11-30] MEDS: BACLOFEN 10 MG PO SCH ×3 (09:02→19:41)
[2019-11-30] MEDS: Acetaminophen 325 MG Tab PO SCH ×2 (09:03→19:41)
[2019-11-30] MEDS: Cyanocobalamin (Vitamin B12) 250 MCG Tab PO SCH (09:05)
[2019-11-30] MEDS: Ascorbic Acid 500 MG Tab PO SCH (09:05)
[2019-11-30] MEDS: Cholecalciferol (Vitamin D3) 25 MCG Tab PO SCH (09:05)
[2019-11-30] MEDS: Multivitamins with Iron/Calcium/Folic Acid/Minerals Tab PO SCH (09:05)
[2019-11-30] MEDS: Lactobacillus Rhamnosus GG (Probiotic) Cap PO SCH (09:05)
[2019-11-30] MEDS: Zinc (Zinc Gluconate) 50 MG Tab PO SCH (09:05)
[2019-12-01] MEDS: BACLOFEN 10 MG PO SCH ×3 (08:15→19:41)
[2019-12-01] MEDS: Fluticasone Propionate Nasal Spray 16 GM Bottle NASBOTH SCH ×2 (08:16→19:40)
[2019-12-01] MEDS: Multivitamins with Iron/Calcium/Folic Acid/Minerals Tab PO SCH (08:17)
[2019-12-01] MEDS: Acetaminophen 325 MG Tab PO SCH ×2 (08:17→19:40)
[2019-12-01] MEDS: Zinc (Zinc Gluconate) 50 MG Tab PO SCH (08:17)
[2019-12-01] MEDS: Cholecalciferol (Vitamin D3) 25 MCG Tab PO SCH (08:18)
[2019-12-01] MEDS: Cyanocobalamin (Vitamin B12) 250 MCG Tab PO SCH (08:19)
[2019-12-01] MEDS: Lactobacillus Rhamnosus GG (Probiotic) Cap PO SCH (08:19)
[2019-12-01] MEDS: Ascorbic Acid 500 MG Tab PO SCH (08:19)
[2019-12-01] MEDS: Acetaminophen 325 MG Tab PO PRN (14:04)
[2019-12-02] MEDS: BACLOFEN 10 MG PO SCH ×3 (08:54→19:27)
[2019-12-02] MEDS: Fluticasone Propionate Nasal Spray 16 GM Bottle NASBOTH SCH ×2 (08:54→19:26)
[2019-12-02] MEDS: Lactobacillus Rhamnosus GG (Probiotic) Cap PO SCH (08:55)
[2019-12-02] MEDS: Cholecalciferol (Vitamin D3) 25 MCG Tab PO SCH (08:55)
[2019-12-02] MEDS: Multivitamins with Iron/Calcium/Folic Acid/Minerals Tab PO SCH (08:55)
[2019-12-02] MEDS: Cyanocobalamin (Vitamin B12) 250 MCG Tab PO SCH (08:55)
[2019-12-02] MEDS: Zinc (Zinc Gluconate) 50 MG Tab PO SCH (08:55)
[2019-12-02] MEDS: Ascorbic Acid 500 MG Tab PO SCH (08:55)
[2019-12-02] MEDS: Acetaminophen 325 MG Tab PO SCH ×2 (08:55→19:27)
[2019-12-02] MEDS: BIOFREEZE TOP SCH ×2 (18:37→21:59)
[2019-12-03] MEDS: Cholecalciferol (Vitamin D3) 25 MCG Tab PO SCH (07:27)
[2019-12-03] MEDS: Ascorbic Acid 500 MG Tab PO SCH (07:27)
[2019-12-03] MEDS: Zinc (Zinc Gluconate) 50 MG Tab PO SCH (07:27)
[2019-12-03] MEDS: BACLOFEN 10 MG PO SCH ×3 (07:27→20:00)
[2019-12-03] MEDS: Acetaminophen 325 MG Tab PO SCH ×2 (07:27→20:01)
[2019-12-03] MEDS: Fluticasone Propionate Nasal Spray 16 GM Bottle NASBOTH SCH ×2 (07:27→20:00)
[2019-12-03] MEDS: Cyanocobalamin (Vitamin B12) 250 MCG Tab PO SCH (07:27)
[2019-12-03] MEDS: Multivitamins with Iron/Calcium/Folic Acid/Minerals Tab PO SCH (07:27)
[2019-12-03] MEDS: Lactobacillus Rhamnosus GG (Probiotic) Cap PO SCH (07:27)
[2019-12-03] MEDS: BIOFREEZE TOP SCH ×3 (07:29→20:00)
[2019-12-03] MEDS: Acetaminophen 325 MG Tab PO PRN (13:19)
[2019-12-03] MEDS: Miconazole 2% Top Powder 45 GM Container TOP PRN (13:19)
[2019-12-04] MEDS: Cholecalciferol (Vitamin D3) 25 MCG Tab PO SCH (08:43)
[2019-12-04] MEDS: Multivitamins with Iron/Calcium/Folic Acid/Minerals Tab PO SCH (08:43)
[2019-12-04] MEDS: Fluticasone Propionate Nasal Spray 16 GM Bottle NASBOTH SCH ×2 (08:44→19:57)
[2019-12-04] MEDS: BACLOFEN 10 MG PO SCH ×3 (08:44→19:57)
[2019-12-04] MEDS: Cyanocobalamin (Vitamin B12) 250 MCG Tab PO SCH (08:44)
[2019-12-04] MEDS: Zinc (Zinc Gluconate) 50 MG Tab PO SCH (08:44)
[2019-12-04] MEDS: BIOFREEZE TOP SCH ×3 (08:44→19:59)
[2019-12-04] MEDS: Ascorbic Acid 500 MG Tab PO SCH (08:44)
[2019-12-04] MEDS: Acetaminophen 325 MG Tab PO SCH ×2 (08:44→19:58)
[2019-12-04] MEDS: Lactobacillus Rhamnosus GG (Probiotic) Cap PO SCH (08:44)
[2019-12-05] MEDS: Fluticasone Propionate Nasal Spray 16 GM Bottle NASBOTH SCH ×2 (07:57→20:16)
[2019-12-05] MEDS: Zinc (Zinc Gluconate) 50 MG Tab PO SCH (07:58)
[2019-12-05] MEDS: Cholecalciferol (Vitamin D3) 25 MCG Tab PO SCH (07:58)
[2019-12-05] MEDS: BACLOFEN 10 MG PO SCH ×3 (07:58→20:15)
[2019-12-05] MEDS: Lactobacillus Rhamnosus GG (Probiotic) Cap PO SCH (07:58)
[2019-12-05] MEDS: Cyanocobalamin (Vitamin B12) 250 MCG Tab PO SCH (07:58)
[2019-12-05] MEDS: Acetaminophen 325 MG Tab PO SCH ×2 (07:58→20:15)
[2019-12-05] MEDS: Multivitamins with Iron/Calcium/Folic Acid/Minerals Tab PO SCH (07:59)
[2019-12-05] MEDS: BIOFREEZE TOP SCH ×3 (07:59→20:16)
[2019-12-05] MEDS: Ascorbic Acid 500 MG Tab PO SCH (07:59)
[2019-12-06] MEDS: BACLOFEN 10 MG PO SCH ×3 (09:02→19:52)
[2019-12-06] MEDS: Fluticasone Propionate Nasal Spray 16 GM Bottle NASBOTH SCH ×2 (09:02→19:51)
[2019-12-06] MEDS: Lactobacillus Rhamnosus GG (Probiotic) Cap PO SCH (09:03)
[2019-12-06] MEDS: Cholecalciferol (Vitamin D3) 25 MCG Tab PO SCH (09:03)
[2019-12-06] MEDS: Ascorbic Acid 500 MG Tab PO SCH (09:03)
[2019-12-06] MEDS: Zinc (Zinc Gluconate) 50 MG Tab PO SCH (09:03)
[2019-12-06] MEDS: Multivitamins with Iron/Calcium/Folic Acid/Minerals Tab PO SCH (09:03)
[2019-12-06] MEDS: Cyanocobalamin (Vitamin B12) 250 MCG Tab PO SCH (09:03)
[2019-12-06] MEDS: Acetaminophen 325 MG Tab PO SCH ×2 (09:03→19:51)
[2019-12-06] MEDS: BIOFREEZE TOP SCH ×3 (09:04→19:52)
[2019-12-06] MEDS: Acetaminophen 325 MG Tab PO PRN (13:40)
[2019-12-07] MEDS: BACLOFEN 10 MG PO SCH ×3 (08:53→20:01)
[2019-12-07] MEDS: Fluticasone Propionate Nasal Spray 16 GM Bottle NASBOTH SCH ×2 (08:53→20:01)
[2019-12-07] MEDS: Cholecalciferol (Vitamin D3) 25 MCG Tab PO SCH (08:54)
[2019-12-07] MEDS: Zinc (Zinc Gluconate) 50 MG Tab PO SCH (08:54)
[2019-12-07] MEDS: Lactobacillus Rhamnosus GG (Probiotic) Cap PO SCH (08:54)
[2019-12-07] MEDS: Cyanocobalamin (Vitamin B12) 250 MCG Tab PO SCH (08:54)
[2019-12-07] MEDS: BIOFREEZE TOP SCH ×3 (08:54→20:03)
[2019-12-07] MEDS: Multivitamins with Iron/Calcium/Folic Acid/Minerals Tab PO SCH (08:54)
[2019-12-07] MEDS: Ascorbic Acid 500 MG Tab PO SCH (08:54)
[2019-12-07] MEDS: Acetaminophen 325 MG Tab PO SCH ×2 (08:54→20:02)
[2019-12-08] MEDS: Acetaminophen 325 MG Tab PO SCH ×2 (08:57→19:48)
[2019-12-08] MEDS: Multivitamins with Iron/Calcium/Folic Acid/Minerals Tab PO SCH (08:57)
[2019-12-08] MEDS: Lactobacillus Rhamnosus GG (Probiotic) Cap PO SCH (08:57)
[2019-12-08] MEDS: BACLOFEN 10 MG PO SCH ×3 (08:57→19:48)
[2019-12-08] MEDS: Cyanocobalamin (Vitamin B12) 250 MCG Tab PO SCH (08:57)
[2019-12-08] MEDS: Cholecalciferol (Vitamin D3) 25 MCG Tab PO SCH (08:57)
[2019-12-08] MEDS: Fluticasone Propionate Nasal Spray 16 GM Bottle NASBOTH SCH ×2 (08:57→19:47)
[2019-12-08] MEDS: Ascorbic Acid 500 MG Tab PO SCH (08:58)
[2019-12-08] MEDS: Zinc (Zinc Gluconate) 50 MG Tab PO SCH (08:58)
[2019-12-08] MEDS: BIOFREEZE TOP SCH ×3 (08:58→19:47)
[2019-12-08] MEDS: Acetaminophen 325 MG Tab PO PRN (15:16)
[2019-12-09] MEDS: BACLOFEN 10 MG PO SCH ×3 (08:37→19:55)
[2019-12-09] MEDS: Cyanocobalamin (Vitamin B12) 250 MCG Tab PO SCH (08:38)
[2019-12-09] MEDS: Zinc (Zinc Gluconate) 50 MG Tab PO SCH (08:38)
[2019-12-09] MEDS: Ascorbic Acid 500 MG Tab PO SCH (08:38)
[2019-12-09] MEDS: Acetaminophen 325 MG Tab PO SCH ×2 (08:38→19:52)
[2019-12-09] MEDS: Lactobacillus Rhamnosus GG (Probiotic) Cap PO SCH (08:38)
[2019-12-09] MEDS: BIOFREEZE TOP SCH ×3 (08:38→19:55)
[2019-12-09] MEDS: Multivitamins with Iron/Calcium/Folic Acid/Minerals Tab PO SCH (08:38)
[2019-12-09] MEDS: Cholecalciferol (Vitamin D3) 25 MCG Tab PO SCH (08:38)
[2019-12-09] MEDS: Fluticasone Propionate Nasal Spray 16 GM Bottle NASBOTH SCH ×2 (08:39→19:52)
[2019-12-10] MEDS: Acetaminophen 325 MG Tab PO SCH ×3 (06:14→19:58)
[2019-12-10] MEDS: BACLOFEN 10 MG PO SCH ×4 (06:14→19:59)
[2019-12-10] MEDS: BIOFREEZE TOP SCH ×3 (07:27→20:00)
[2019-12-10] MEDS: Cyanocobalamin (Vitamin B12) 250 MCG Tab PO SCH (07:27)
[2019-12-10] MEDS: Fluticasone Propionate Nasal Spray 16 GM Bottle NASBOTH SCH ×2 (07:27→19:58)
[2019-12-10] MEDS: Lactobacillus Rhamnosus GG (Probiotic) Cap PO SCH (07:27)
[2019-12-10] MEDS: Multivitamins with Iron/Calcium/Folic Acid/Minerals Tab PO SCH (07:27)
[2019-12-10] MEDS: Ascorbic Acid 500 MG Tab PO SCH (07:28)
[2019-12-10] MEDS: Zinc (Zinc Gluconate) 50 MG Tab PO SCH (07:28)
[2019-12-10] MEDS: Cholecalciferol (Vitamin D3) 25 MCG Tab PO SCH (07:28)
[2019-12-11] MEDS: Fluticasone Propionate Nasal Spray 16 GM Bottle NASBOTH SCH ×2 (08:54→19:37)
[2019-12-11] MEDS: BACLOFEN 10 MG PO SCH ×3 (08:54→19:37)
[2019-12-11] MEDS: Zinc (Zinc Gluconate) 50 MG Tab PO SCH (08:55)
[2019-12-11] MEDS: Cholecalciferol (Vitamin D3) 25 MCG Tab PO SCH (08:55)
[2019-12-11] MEDS: Cyanocobalamin (Vitamin B12) 250 MCG Tab PO SCH (08:55)
[2019-12-11] MEDS: Acetaminophen 325 MG Tab PO SCH ×2 (08:55→19:37)
[2019-12-11] MEDS: Lactobacillus Rhamnosus GG (Probiotic) Cap PO SCH (08:55)
[2019-12-11] MEDS: Ascorbic Acid 500 MG Tab PO SCH (08:55)
[2019-12-11] MEDS: Multivitamins with Iron/Calcium/Folic Acid/Minerals Tab PO SCH (08:55)
[2019-12-11] MEDS: BIOFREEZE TOP SCH ×3 (08:56→19:38)
--- NOTE | 2019-12-11 10:51 | PCM.PN ---
- General Info Date of Service: 12/11/19 Subjective Update: 44 yo male seen today for swing bed follow-up. He states that he is doing well. He saw the wound clinic yesterday for follow- up. They are re-culturing a fragment of bone and are planning on checking in with plastic surgery to see what the plan is for next steps. He otherwise is feeling well. He denies any fever or chills. No muscle aches. Still having limited mobility and pain in his right arm but he is optimistic that this will improve once he is able to resume his infusions with neurology. No new mobility impairments. Ostomy and suprapubic catheter working well with no issues. He denies any other pain. He remains frustrated that he is still admitted and is hoping to get discharged as soon as he is able. He feels that his mood is ok considering everything he has going on and he denies any current concerns for depressed mood or anxiety. - Review of Systems General: Reports: No Symptoms HEENT: Reports: No Symptoms Pulmonary: Reports: No Symptoms Cardiovascular: Reports: No Symptoms Gastrointestinal: Reports: No Symptoms Genitourinary: Reports: No Symptoms Musculoskeletal: Reports: No Symptoms Skin: Reports: No Symptoms Neurological: Reports: No Symptoms Psychiatric: Reports: No Symptoms - Patient Data Vitals - Most Recent: Last Vital Signs Temp 36.2 C 12/11/19 06:00 Pulse 79 12/11/19 06:00 Resp 16 12/11/19 06:00 BP 103/63 12/11/19 06:00 Pulse Ox 96 12/11/19 06:00 Weight - Most Recent: 136.985 kg I&O - Last 24 Hours: Intake & Output 12/10/19 12/11/19 12/11/19 22:59 06:59 14:59 Intake Total 120 360 Output Total 700 800 700 Balance -580 -800 -340 Med Orders - Current: Current Medications Acetaminophen (Tylenol) 650 mg PO BID [facility] Last Admin: 12/11/19 08:55 Dose: 650 mg Documented by: Acetaminophen (Tylenol) 650 mg PO Q6H PRN PRN Reason: Pain Last Admin: 12/08/19 15:16 Dose: 650 mg Documented by: Ascorbic Acid (Vitamin C) 500 mg PO DAILY [facility] Last Admin: 12/11/19 08:55 Dose: 500 mg Documented by: Baclofen (Lioresal) 5 mg PO TID [facility] Last Admin: 12/11/19 08:54 Dose: 5 mg Documented by: Cholecalciferol (Vitamin D3) 100 mcg PO DAILY [facility] Last Admin: 12/11/19 08:55 Dose: 100 mcg Documented by: Cyanocobalamin (Vitamin B12) 500 mcg PO DAILY [facility] Last Admin: 12/11/19 08:55 Dose: 500 mcg Documented by: Fluticasone Propionate (Flonase) 0 gm NASBOTH BID [facility] Last Admin: 12/11/19 08:54 Dose: 1 spray Documented by: Heparin Sodium (Porcine) (Heparin Lock Flush 100 Units/Ml) 300 unit FLUSH ASDIRECTED PRN PRN Reason: Keep Vein Open Last Admin: 11/27/19 06:45 Dose: 300 unit Documented by: Lactobacillus Rhamnosus (Culturelle) 1 cap PO DAILY [facility] Last Admin: 12/11/19 08:55 Dose: 1 cap Documented by: Miconazole (Desenex 2%) 0 gm TOP BID PRN PRN Reason: Rash Last Admin: 12/03/19 13:19 Dose: 1 applic Documented by: Multivitamins/Minerals (Thera M Plus) 1 tab PO DAILY [facility] Last Admin: 12/11/19 08:55 Dose: 1 tab Documented by: Biofreeze Topical * (Pt Own Med*) 0 each TOP TID [facility] Last Admin: 12/11/19 08:56 Dose: 1 each Documented by: Senna/Docusate Sodium (Senna Plus) 2 tab PO BEDTIME PRN PRN Reason: Constipation Last Admin: 12/08/19 19:49 Dose: 2 tab Documented by: Sodium Chloride (Saline Flush) 10 ml IV ASDIRECTED PRN PRN Reason: Keep Vein Open Last Admin: 11/27/19 06:45 Dose: 10 ml Documented by: Zinc Gluconate (Zinc) 50 mg PO DAILY [facility] Last Admin: 12/11/19 08:55 Dose: 50 mg Documented by: Discontinued Medications Alteplase, Recombinant (Cathflo Activase) 2 mg IVPUSH ONETIME ONE Stop: 10/23/19 12:45 Last Admin: 10/23/19 13:30 Dose: 2 mg Documented by: Baclofen (Lioresal) 5 mg PO TID [facility] Stop: 11/21/19 20:00 Last Admin: 11/21/19 19:52 Dose: 5 mg Documented by: Fluticasone Propionate (Flonase) 0 gm NASBOTH BID [facility] Stop: 11/21/19 20:01 Last Admin: 11/21/19 19:51 Dose: 1 spray Documented by: Heparin Sodium (Porcine) (Heparin Lock Flush 100 Units/Ml) 300 unit FLUSH Q8H [facility] Stop: 11/25/19 23:59 Last Admin: 11/18/19 19:25 Dose: Not Given Documented by: Heparin Sodium (Porcine) (Heparin Lock Flush 100 Units/Ml) 300 unit FLUSH Q8H [facility] Stop: 11/25/19 23:59 Last Admin: 11/25/19 20:08 Dose: 300 unit Documented by: Piperacillin Sod/Tazobactam (Sod 4.5 gm/ Sodium Chloride) 100 mls @ 25 mls/hr IV Q8H [facility] Stop: 11/25/19 23:58 Last Admin: 11/18/19 09:46 Dose: Not Given Documented by: Piperacillin Sod/Tazobactam (Sod 4.5 gm/ Sodium Chloride) 100 mls @ 200 mls/hr IV ONETIME ONE Stop: 11/18/19 15:29 Last Admin: 11/18/19 15:07 Dose: 200 mls/hr Documented by: Piperacillin Sod/Tazobactam (Sod 4.5 gm/ Sodium Chloride) 100 mls @ 25 mls/hr IV Q8H [facility] Stop: 11/25/19 23:58 Last Admin: 11/25/19 23:20 Dose: 25 mls/hr Documented by: Sodium Bicarbonate (Sodium Bicarbonate 8.4%) Confirm Administered Dose 50 meq .ROUTE .STK-MED ONE Stop: 11/02/19 12:42 Last Admin: 11/02/19 13:28 Dose: Not Given Documented by: - Exam General: Alert, Oriented, Cooperative, No Acute Distress HEENT: Mucous Membr. Moist/[place] Neck: Supple, Trachea Midline, No Thyromegaly. No: Lymphadenopathy Lungs: Clear to Auscultation, Normal Respiratory Effort Cardiovascular: Regular Rate, Regular Rhythm, No Murmurs GI/Abdominal Exam: Normal Bowel Sounds, Soft, Non-Tender, No Organomegaly, No Distention, No Mass Extremities: Non-Tender, No Pedal Edema, Normal Capillary Refill Peripheral Pulses: 2+: Radial (L), Radial (R) Skin: Warm, Dry Sepsis Event Note - Evaluation Sepsis Screening Result: No Definite Risk - Focused Exam Vital Signs: Vital Signs Temp Pulse Resp BP Pulse Ox 12/11/19 06:00 36.2 C 79 16 103/63 96 - Problem List & Annotations (1) Sacral decubitus ulcer SNOMED Code(s): 670265011 Code(s): L89.159 - PRESSURE ULCER OF SACRAL REGION, UNSPECIFIED STAGE Status: Acute Current Visit: No Qualifiers: Pressure injury stage: unspecified pressure injury stage Qualified Code(s): L89.159 - Pressure ulcer of sacral region, unspecified stage (2) Sacral osteomyelitis SNOMED Code(s): 927397706, 597407717 Code(s): M46.28 - OSTEOMYELITIS OF VERTEBRA, SACRAL AND SACROCOCCYGEAL REGION Status: Acute Current Visit: No (3) Chronic sinusitis SNOMED Code(s): 09452946 Code(s): J32.9 - CHRONIC SINUSITIS, UNSPECIFIED Status: Chronic Current Visit: No (4) Constipation SNOMED Code(s): 89599287 Code(s): K59.00 - CONSTIPATION, UNSPECIFIED Status: Chronic Current Visit: No (5) Hypertension SNOMED Code(s): 46702023 Code(s): I10 - ESSENTIAL (PRIMARY) HYPERTENSION Status: Chronic Current Visit: No (6) Multiple sclerosis SNOMED Code(s): 02081745 Code(s): G35 - MULTIPLE SCLEROSIS Status: Chronic Current Visit: No (7) Neurogenic bladder SNOMED Code(s): 162892396 Code(s): N31.9 - NEUROMUSCULAR DYSFUNCTION OF BLADDER, UNSPECIFIED Status: Chronic Current Visit: No (8) Adjustment disorder SNOMED Code(s): 94568997 Code(s): F43.20 - ADJUSTMENT DISORDER, UNSPECIFIED Status: Acute Current Visit: No Qualifiers: Adjustment disorder type: with depressed mood Qualified Code(s): F43.21 - Adjustment disorder with depressed mood - Problem List Review Problem List Initiated/Reviewed/Updated: Yes - Assessment Assessment:: 44 yo male on [facility] swing bed for wound cares related to a sacral pressure ulcer. Has now again completed 6 weeks of antibiotics for a recurrent osteomyelitis. Saw wound clinic yesterday. Wound is healing but is still to the bone. - Plan Plan:: #1 Sacral decubitus ulcer #2 Sacral osteomyelitis - Continue wound cares as per orders from [place]. - Wound clinic follow-up as scheduled. They are also planning for plastic surgery follow-up. - No current infection concerns but we are now awaiting culture of a bone fragment. #3 Chronic sinusitis #4 Constipation #5 Hypertension #6 MS - Continue home medications. - Neurology follow-up is scheduled for January. #7 Neurogenic bladder - Suprapubic catheter is working well. #8 Adjustment disorder - Doing as well as can be expected at this time. - He declines any medication management. - Will continue to monitor closely. Patient is admitted to swing bed as above - duration is likely [facility]. He will for sure be admitted to swing bed until his wound is healed. If his wound heals, he will be able to discharge but will need adequate assistance/supports in the community to do so. Code status is DNR/DNI - discussed on admission. No indication for VTE prophylaxis as he is at his usual functional baseline.
[2019-12-12] MEDS: Acetaminophen 325 MG Tab PO SCH ×2 (08:20→20:58)
[2019-12-12] MEDS: BACLOFEN 10 MG PO SCH ×3 (08:20→20:59)
[2019-12-12] MEDS: Fluticasone Propionate Nasal Spray 16 GM Bottle NASBOTH SCH ×2 (08:20→20:58)
[2019-12-12] MEDS: Cholecalciferol (Vitamin D3) 25 MCG Tab PO SCH (08:21)
[2019-12-12] MEDS: Multivitamins with Iron/Calcium/Folic Acid/Minerals Tab PO SCH (08:21)
[2019-12-12] MEDS: Lactobacillus Rhamnosus GG (Probiotic) Cap PO SCH (08:21)
[2019-12-12] MEDS: Zinc (Zinc Gluconate) 50 MG Tab PO SCH (08:21)
[2019-12-12] MEDS: Cyanocobalamin (Vitamin B12) 250 MCG Tab PO SCH (08:21)
[2019-12-12] MEDS: Ascorbic Acid 500 MG Tab PO SCH (08:21)
[2019-12-12] MEDS: BIOFREEZE TOP SCH ×3 (08:22→20:59)
[2019-12-12] MEDS: Acetaminophen 325 MG Tab PO PRN (12:44)
[2019-12-13] MEDS: Cholecalciferol (Vitamin D3) 25 MCG Tab PO SCH (08:48)
[2019-12-13] MEDS: BIOFREEZE TOP SCH ×3 (08:48→20:40)
[2019-12-13] MEDS: Cyanocobalamin (Vitamin B12) 250 MCG Tab PO SCH (08:49)
[2019-12-13] MEDS: Acetaminophen 325 MG Tab PO SCH ×2 (08:49→20:39)
[2019-12-13] MEDS: Zinc (Zinc Gluconate) 50 MG Tab PO SCH (08:49)
[2019-12-13] MEDS: Lactobacillus Rhamnosus GG (Probiotic) Cap PO SCH (08:49)
[2019-12-13] MEDS: Multivitamins with Iron/Calcium/Folic Acid/Minerals Tab PO SCH (08:49)
[2019-12-13] MEDS: Ascorbic Acid 500 MG Tab PO SCH (08:49)
[2019-12-13] MEDS: Fluticasone Propionate Nasal Spray 16 GM Bottle NASBOTH SCH ×2 (08:51→20:39)
[2019-12-13] MEDS: BACLOFEN 10 MG PO SCH ×3 (08:51→20:39)
[2019-12-13] MEDS: Acetaminophen 325 MG Tab PO PRN (13:48)
[2019-12-14] MEDS: Lactobacillus Rhamnosus GG (Probiotic) Cap PO SCH (09:04)
[2019-12-14] MEDS: Acetaminophen 325 MG Tab PO SCH ×2 (09:04→20:29)
[2019-12-14] MEDS: BACLOFEN 10 MG PO SCH ×3 (09:04→20:33)
[2019-12-14] MEDS: Cyanocobalamin (Vitamin B12) 250 MCG Tab PO SCH (09:05)
[2019-12-14] MEDS: Zinc (Zinc Gluconate) 50 MG Tab PO SCH (09:06)
[2019-12-14] MEDS: Cholecalciferol (Vitamin D3) 25 MCG Tab PO SCH (09:06)
[2019-12-14] MEDS: Multivitamins with Iron/Calcium/Folic Acid/Minerals Tab PO SCH (09:06)
[2019-12-14] MEDS: Ascorbic Acid 500 MG Tab PO SCH (09:06)
[2019-12-14] MEDS: Fluticasone Propionate Nasal Spray 16 GM Bottle NASBOTH SCH ×2 (09:06→20:28)
[2019-12-14] MEDS: BIOFREEZE TOP SCH ×3 (09:06→20:32)
[2019-12-14] MEDS: Acetaminophen 325 MG Tab PO PRN (12:31)
[2019-12-15] MEDS: BIOFREEZE TOP SCH ×3 (08:49→20:53)
[2019-12-15] MEDS: Fluticasone Propionate Nasal Spray 16 GM Bottle NASBOTH SCH ×2 (08:50→20:52)
[2019-12-15] MEDS: Acetaminophen 325 MG Tab PO SCH ×2 (08:50→20:56)
[2019-12-15] MEDS: BACLOFEN 10 MG PO SCH ×3 (08:50→20:52)
[2019-12-15] MEDS: Cholecalciferol (Vitamin D3) 25 MCG Tab PO SCH (08:51)
[2019-12-15] MEDS: Multivitamins with Iron/Calcium/Folic Acid/Minerals Tab PO SCH (08:51)
[2019-12-15] MEDS: Cyanocobalamin (Vitamin B12) 250 MCG Tab PO SCH (08:51)
[2019-12-15] MEDS: Lactobacillus Rhamnosus GG (Probiotic) Cap PO SCH (08:51)
[2019-12-15] MEDS: Zinc (Zinc Gluconate) 50 MG Tab PO SCH (08:51)
[2019-12-15] MEDS: Ascorbic Acid 500 MG Tab PO SCH (08:51)
[2019-12-15] MEDS: Acetaminophen 325 MG Tab PO PRN (13:49)
[2019-12-16] MEDS: BACLOFEN 10 MG PO SCH ×3 (08:36→20:12)
[2019-12-16] MEDS: Lactobacillus Rhamnosus GG (Probiotic) Cap PO SCH (08:37)
[2019-12-16] MEDS: Ascorbic Acid 500 MG Tab PO SCH (08:37)
[2019-12-16] MEDS: BIOFREEZE TOP SCH ×3 (08:37→20:13)
[2019-12-16] MEDS: Cholecalciferol (Vitamin D3) 25 MCG Tab PO SCH (08:37)
[2019-12-16] MEDS: Zinc (Zinc Gluconate) 50 MG Tab PO SCH (08:37)
[2019-12-16] MEDS: Cyanocobalamin (Vitamin B12) 250 MCG Tab PO SCH (08:37)
[2019-12-16] MEDS: Fluticasone Propionate Nasal Spray 16 GM Bottle NASBOTH SCH ×2 (08:37→20:08)
[2019-12-16] MEDS: Acetaminophen 325 MG Tab PO SCH ×2 (08:37→20:10)
[2019-12-16] MEDS: Multivitamins with Iron/Calcium/Folic Acid/Minerals Tab PO SCH (08:37)
[2019-12-17] MEDS: Lactobacillus Rhamnosus GG (Probiotic) Cap PO SCH (08:07)
[2019-12-17] MEDS: Ascorbic Acid 500 MG Tab PO SCH (08:08)
[2019-12-17] MEDS: Fluticasone Propionate Nasal Spray 16 GM Bottle NASBOTH SCH ×2 (08:08→19:50)
[2019-12-17] MEDS: BACLOFEN 10 MG PO SCH ×3 (08:08→19:52)
[2019-12-17] MEDS: Multivitamins with Iron/Calcium/Folic Acid/Minerals Tab PO SCH (08:08)
[2019-12-17] MEDS: Cyanocobalamin (Vitamin B12) 250 MCG Tab PO SCH (08:08)
[2019-12-17] MEDS: Cholecalciferol (Vitamin D3) 25 MCG Tab PO SCH (08:08)
[2019-12-17] MEDS: Acetaminophen 325 MG Tab PO SCH ×2 (08:08→19:53)
[2019-12-17] MEDS: BIOFREEZE TOP SCH ×3 (08:08→19:51)
[2019-12-17] MEDS: Zinc (Zinc Gluconate) 50 MG Tab PO SCH (08:08)
[2019-12-17] MEDS: Acetaminophen 325 MG Tab PO PRN (15:13)
[2019-12-18] MEDS: Fluticasone Propionate Nasal Spray 16 GM Bottle NASBOTH SCH ×2 (09:08→20:14)
[2019-12-18] MEDS: BACLOFEN 10 MG PO SCH ×3 (09:08→20:15)
[2019-12-18] MEDS: BIOFREEZE TOP SCH ×3 (09:08→20:15)
[2019-12-18] MEDS: Acetaminophen 325 MG Tab PO SCH ×2 (09:09→20:16)
[2019-12-18] MEDS: Cyanocobalamin (Vitamin B12) 250 MCG Tab PO SCH (09:10)
[2019-12-18] MEDS: Ascorbic Acid 500 MG Tab PO SCH (09:10)
[2019-12-18] MEDS: Zinc (Zinc Gluconate) 50 MG Tab PO SCH (09:10)
[2019-12-18] MEDS: Lactobacillus Rhamnosus GG (Probiotic) Cap PO SCH (09:10)
[2019-12-18] MEDS: Cholecalciferol (Vitamin D3) 25 MCG Tab PO SCH (09:10)
[2019-12-18] MEDS: Multivitamins with Iron/Calcium/Folic Acid/Minerals Tab PO SCH (09:11)
[2019-12-18] MEDS: Clindamycin HCl 150 MG Cap PO SCH (20:14)
[2019-12-19] MEDS: BACLOFEN 10 MG PO SCH ×3 (09:26→19:52)
[2019-12-19] MEDS: Clindamycin HCl 150 MG Cap PO SCH (09:26)
[2019-12-19] MEDS: Fluticasone Propionate Nasal Spray 16 GM Bottle NASBOTH SCH ×2 (09:26→19:52)
[2019-12-19] MEDS: Multivitamins with Iron/Calcium/Folic Acid/Minerals Tab PO SCH (09:27)
[2019-12-19] MEDS: Cyanocobalamin (Vitamin B12) 250 MCG Tab PO SCH (09:28)
[2019-12-19] MEDS: Ascorbic Acid 500 MG Tab PO SCH (09:28)
[2019-12-19] MEDS: Acetaminophen 325 MG Tab PO SCH ×2 (09:29→19:53)
[2019-12-19] MEDS: Cholecalciferol (Vitamin D3) 25 MCG Tab PO SCH (09:30)
[2019-12-19] MEDS: Lactobacillus Rhamnosus GG (Probiotic) Cap PO SCH (09:30)
[2019-12-19] MEDS: Zinc (Zinc Gluconate) 50 MG Tab PO SCH (09:31)
[2019-12-19] MEDS: BIOFREEZE TOP SCH ×3 (09:31→19:55)
[2019-12-19] MEDS: CLINDAMYCIN HCL 150 MG PO SCH ×2 (11:20→19:52)
[2019-12-20] MEDS: Fluticasone Propionate Nasal Spray 16 GM Bottle NASBOTH SCH ×2 (09:09→20:37)
[2019-12-20] MEDS: BACLOFEN 10 MG PO SCH ×3 (09:10→20:38)
[2019-12-20] MEDS: BIOFREEZE TOP SCH ×4 (09:10→20:53)
[2019-12-20] MEDS: Ascorbic Acid 500 MG Tab PO SCH (09:10)
[2019-12-20] MEDS: Cyanocobalamin (Vitamin B12) 250 MCG Tab PO SCH (09:10)
[2019-12-20] MEDS: CLINDAMYCIN HCL 150 MG PO SCH ×3 (09:10→20:38)
[2019-12-20] MEDS: Cholecalciferol (Vitamin D3) 25 MCG Tab PO SCH (09:10)
[2019-12-20] MEDS: Multivitamins with Iron/Calcium/Folic Acid/Minerals Tab PO SCH (09:10)
[2019-12-20] MEDS: Acetaminophen 325 MG Tab PO SCH ×2 (09:12→20:36)
[2019-12-20] MEDS: Lactobacillus Rhamnosus GG (Probiotic) Cap PO SCH ×2 (09:12→23:15)
[2019-12-20] MEDS: Zinc (Zinc Gluconate) 50 MG Tab PO SCH (09:12)
[2019-12-20] MEDS: Miconazole 2% Top Powder 45 GM Container TOP PRN (20:53)
[2019-12-21] MEDS: CLINDAMYCIN HCL 150 MG PO SCH ×3 (08:45→20:13)
[2019-12-21] MEDS: Fluticasone Propionate Nasal Spray 16 GM Bottle NASBOTH SCH ×2 (08:46→20:13)
[2019-12-21] MEDS: BIOFREEZE TOP SCH ×3 (08:46→20:14)
[2019-12-21] MEDS: Multivitamins with Iron/Calcium/Folic Acid/Minerals Tab PO SCH (08:46)
[2019-12-21] MEDS: Zinc (Zinc Gluconate) 50 MG Tab PO SCH (08:46)
[2019-12-21] MEDS: Cyanocobalamin (Vitamin B12) 250 MCG Tab PO SCH (08:46)
[2019-12-21] MEDS: Acetaminophen 325 MG Tab PO SCH ×2 (08:46→20:13)
[2019-12-21] MEDS: BACLOFEN 10 MG PO SCH ×3 (08:46→20:13)
[2019-12-21] MEDS: Ascorbic Acid 500 MG Tab PO SCH (08:46)
[2019-12-21] MEDS: Cholecalciferol (Vitamin D3) 25 MCG Tab PO SCH (08:46)
[2019-12-21] MEDS: Lactobacillus Rhamnosus GG (Probiotic) Cap PO SCH ×2 (10:15→22:08)
[2019-12-22] MEDS: CLINDAMYCIN HCL 150 MG PO SCH ×3 (08:32→20:01)
[2019-12-22] MEDS: BACLOFEN 10 MG PO SCH ×3 (08:32→20:01)
[2019-12-22] MEDS: BIOFREEZE TOP SCH ×3 (08:32→20:00)
[2019-12-22] MEDS: Zinc (Zinc Gluconate) 50 MG Tab PO SCH (08:32)
[2019-12-22] MEDS: Acetaminophen 325 MG Tab PO SCH ×2 (08:32→20:01)
[2019-12-22] MEDS: Cholecalciferol (Vitamin D3) 25 MCG Tab PO SCH (08:32)
[2019-12-22] MEDS: Multivitamins with Iron/Calcium/Folic Acid/Minerals Tab PO SCH (08:33)
[2019-12-22] MEDS: Fluticasone Propionate Nasal Spray 16 GM Bottle NASBOTH SCH ×2 (08:33→20:01)
[2019-12-22] MEDS: Cyanocobalamin (Vitamin B12) 250 MCG Tab PO SCH (08:33)
[2019-12-22] MEDS: Ascorbic Acid 500 MG Tab PO SCH (08:33)
[2019-12-22] MEDS: Lactobacillus Rhamnosus GG (Probiotic) Cap PO SCH ×2 (11:38→23:06)
[2019-12-23] MEDS: Cholecalciferol (Vitamin D3) 25 MCG Tab PO SCH (09:08)
[2019-12-23] MEDS: BACLOFEN 10 MG PO SCH ×3 (09:08→21:00)
[2019-12-23] MEDS: CLINDAMYCIN HCL 150 MG PO SCH ×3 (09:08→21:00)
[2019-12-23] MEDS: Fluticasone Propionate Nasal Spray 16 GM Bottle NASBOTH SCH ×2 (09:08→21:00)
[2019-12-23] MEDS: BIOFREEZE TOP SCH ×3 (09:09→21:01)
[2019-12-23] MEDS: Multivitamins with Iron/Calcium/Folic Acid/Minerals Tab PO SCH (09:09)
[2019-12-23] MEDS: Cyanocobalamin (Vitamin B12) 250 MCG Tab PO SCH (09:09)
[2019-12-23] MEDS: Zinc (Zinc Gluconate) 50 MG Tab PO SCH (09:09)
[2019-12-23] MEDS: Acetaminophen 325 MG Tab PO SCH ×2 (09:09→21:00)
[2019-12-23] MEDS: Ascorbic Acid 500 MG Tab PO SCH (09:09)
[2019-12-23] MEDS: Lactobacillus Rhamnosus GG (Probiotic) Cap PO SCH ×2 (11:48→23:04)
[2019-12-24] MEDS: Ascorbic Acid 500 MG Tab PO SCH (07:16)
[2019-12-24] MEDS: Fluticasone Propionate Nasal Spray 16 GM Bottle NASBOTH SCH ×2 (07:16→21:11)
[2019-12-24] MEDS: Zinc (Zinc Gluconate) 50 MG Tab PO SCH (07:16)
[2019-12-24] MEDS: BACLOFEN 10 MG PO SCH ×3 (07:16→21:12)
[2019-12-24] MEDS: BIOFREEZE TOP SCH ×3 (07:16→21:12)
[2019-12-24] MEDS: CLINDAMYCIN HCL 150 MG PO SCH ×3 (07:16→21:11)
[2019-12-24] MEDS: Cholecalciferol (Vitamin D3) 25 MCG Tab PO SCH (07:16)
[2019-12-24] MEDS: Multivitamins with Iron/Calcium/Folic Acid/Minerals Tab PO SCH (07:17)
[2019-12-24] MEDS: Acetaminophen 325 MG Tab PO SCH ×2 (07:17→21:13)
[2019-12-24] MEDS: Cyanocobalamin (Vitamin B12) 250 MCG Tab PO SCH (08:31)
[2019-12-24] MEDS: Lactobacillus Rhamnosus GG (Probiotic) Cap PO SCH ×2 (11:07→23:21)
[2019-12-24] MEDS: Acetaminophen 325 MG Tab PO PRN (14:21)
[2019-12-25] MEDS: Fluticasone Propionate Nasal Spray 16 GM Bottle NASBOTH SCH ×2 (09:53→20:32)
[2019-12-25] MEDS: CLINDAMYCIN HCL 150 MG PO SCH ×3 (09:53→20:33)
[2019-12-25] MEDS: BACLOFEN 10 MG PO SCH ×3 (09:53→20:34)
[2019-12-25] MEDS: Multivitamins with Iron/Calcium/Folic Acid/Minerals Tab PO SCH (09:54)
[2019-12-25] MEDS: Cholecalciferol (Vitamin D3) 25 MCG Tab PO SCH (09:54)
[2019-12-25] MEDS: Zinc (Zinc Gluconate) 50 MG Tab PO SCH (09:54)
[2019-12-25] MEDS: Cyanocobalamin (Vitamin B12) 250 MCG Tab PO SCH (09:54)
[2019-12-25] MEDS: Lactobacillus Rhamnosus GG (Probiotic) Cap PO SCH ×2 (09:54→22:44)
[2019-12-25] MEDS: Acetaminophen 325 MG Tab PO SCH ×2 (09:55→20:34)
[2019-12-25] MEDS: Ascorbic Acid 500 MG Tab PO SCH (09:55)
[2019-12-25] MEDS: BIOFREEZE TOP SCH ×3 (09:56→20:36)
[2019-12-25] MEDS: Acetaminophen 325 MG Tab PO PRN (12:35)
[2019-12-26] MEDS: Fluticasone Propionate Nasal Spray 16 GM Bottle NASBOTH SCH ×2 (08:57→20:10)
[2019-12-26] MEDS: CLINDAMYCIN HCL 150 MG PO SCH ×3 (08:58→20:11)
[2019-12-26] MEDS: BACLOFEN 10 MG PO SCH ×3 (08:58→20:11)
[2019-12-26] MEDS: Acetaminophen 325 MG Tab PO SCH ×2 (08:59→20:11)
[2019-12-26] MEDS: BIOFREEZE TOP SCH ×3 (09:00→20:10)
[2019-12-26] MEDS: Zinc (Zinc Gluconate) 50 MG Tab PO SCH (09:00)
[2019-12-26] MEDS: Multivitamins with Iron/Calcium/Folic Acid/Minerals Tab PO SCH (09:00)
[2019-12-26] MEDS: Lactobacillus Rhamnosus GG (Probiotic) Cap PO SCH ×2 (09:00→22:17)
[2019-12-26] MEDS: Cholecalciferol (Vitamin D3) 25 MCG Tab PO SCH (09:00)
[2019-12-26] MEDS: Cyanocobalamin (Vitamin B12) 250 MCG Tab PO SCH (09:00)
[2019-12-26] MEDS: Ascorbic Acid 500 MG Tab PO SCH (09:00)
[2019-12-26] MEDS: Acetaminophen 325 MG Tab PO PRN (12:36)
[2019-12-27] MEDS: CLINDAMYCIN HCL 150 MG PO SCH ×3 (09:30→20:12)
[2019-12-27] MEDS: Fluticasone Propionate Nasal Spray 16 GM Bottle NASBOTH SCH ×2 (09:30→20:08)
[2019-12-27] MEDS: BACLOFEN 10 MG PO SCH ×3 (09:30→20:12)
[2019-12-27] MEDS: BIOFREEZE TOP SCH ×3 (09:31→20:14)
[2019-12-27] MEDS: Cholecalciferol (Vitamin D3) 25 MCG Tab PO SCH (09:31)
[2019-12-27] MEDS: Multivitamins with Iron/Calcium/Folic Acid/Minerals Tab PO SCH (09:32)
[2019-12-27] MEDS: Cyanocobalamin (Vitamin B12) 250 MCG Tab PO SCH (09:32)
[2019-12-27] MEDS: Zinc (Zinc Gluconate) 50 MG Tab PO SCH (09:32)
[2019-12-27] MEDS: Acetaminophen 325 MG Tab PO SCH ×2 (09:32→20:10)
[2019-12-27] MEDS: Ascorbic Acid 500 MG Tab PO SCH (09:32)
[2019-12-27] MEDS: Lactobacillus Rhamnosus GG (Probiotic) Cap PO SCH ×2 (11:40→23:00)
[2019-12-27] MEDS: Acetaminophen 325 MG Tab PO PRN (11:40)
[2019-12-28] MEDS: CLINDAMYCIN HCL 150 MG PO SCH ×3 (07:29→21:15)
[2019-12-28] MEDS: Fluticasone Propionate Nasal Spray 16 GM Bottle NASBOTH SCH ×2 (07:29→20:45)
[2019-12-28] MEDS: BIOFREEZE TOP SCH ×3 (07:30→20:50)
[2019-12-28] MEDS: BACLOFEN 10 MG PO SCH ×3 (07:31→20:47)
[2019-12-28] MEDS: Multivitamins with Iron/Calcium/Folic Acid/Minerals Tab PO SCH (07:32)
[2019-12-28] MEDS: Acetaminophen 325 MG Tab PO SCH ×2 (07:32→20:47)
[2019-12-28] MEDS: Cyanocobalamin (Vitamin B12) 250 MCG Tab PO SCH (07:33)
[2019-12-28] MEDS: Zinc (Zinc Gluconate) 50 MG Tab PO SCH (07:34)
[2019-12-28] MEDS: Ascorbic Acid 500 MG Tab PO SCH (07:34)
[2019-12-28] MEDS: Cholecalciferol (Vitamin D3) 25 MCG Tab PO SCH (07:35)
[2019-12-28] MEDS: Lactobacillus Rhamnosus GG (Probiotic) Cap PO SCH ×2 (10:15→23:10)
[2019-12-28] MEDS ORDERED: CLINDAMYCIN HCL 150 MG PO ONE (21:00)
[2019-12-28] MEDS ORDERED: Clindamycin HCl 150 MG Cap PO ONE (21:30)
[2019-12-29] MEDS: Cholecalciferol (Vitamin D3) 25 MCG Tab PO SCH (08:27)
[2019-12-29] MEDS: Multivitamins with Iron/Calcium/Folic Acid/Minerals Tab PO SCH (08:27)
[2019-12-29] MEDS: Fluticasone Propionate Nasal Spray 16 GM Bottle NASBOTH SCH ×2 (08:27→20:15)
[2019-12-29] MEDS: Ascorbic Acid 500 MG Tab PO SCH (08:29)
[2019-12-29] MEDS: Zinc (Zinc Gluconate) 50 MG Tab PO SCH (08:30)
[2019-12-29] MEDS: BACLOFEN 10 MG PO SCH ×3 (08:31→20:16)
[2019-12-29] MEDS: Cyanocobalamin (Vitamin B12) 250 MCG Tab PO SCH (08:31)
[2019-12-29] MEDS: BIOFREEZE TOP SCH ×3 (08:32→20:17)
[2019-12-29] MEDS: Acetaminophen 325 MG Tab PO SCH ×2 (08:33→20:17)
[2019-12-29] MEDS: Lactobacillus Rhamnosus GG (Probiotic) Cap PO SCH ×2 (10:33→22:33)
[2019-12-30] MEDS: Multivitamins with Iron/Calcium/Folic Acid/Minerals Tab PO SCH (08:15)
[2019-12-30] MEDS: Cyanocobalamin (Vitamin B12) 250 MCG Tab PO SCH (08:15)
[2019-12-30] MEDS: Cholecalciferol (Vitamin D3) 25 MCG Tab PO SCH (08:15)
[2019-12-30] MEDS: BACLOFEN 10 MG PO SCH ×3 (08:15→20:49)
[2019-12-30] MEDS: Zinc (Zinc Gluconate) 50 MG Tab PO SCH (08:15)
[2019-12-30] MEDS: Ascorbic Acid 500 MG Tab PO SCH (08:15)
[2019-12-30] MEDS: Acetaminophen 325 MG Tab PO SCH ×2 (08:16→20:49)
[2019-12-30] MEDS: Fluticasone Propionate Nasal Spray 16 GM Bottle NASBOTH SCH ×2 (08:16→20:48)
[2019-12-30] MEDS: BIOFREEZE TOP SCH ×3 (08:16→20:48)
[2019-12-30] MEDS: Lactobacillus Rhamnosus GG (Probiotic) Cap PO SCH ×2 (08:17→20:49)
[2019-12-30] MEDS: Acetaminophen 325 MG Tab PO PRN (15:15)
[2019-12-30] MEDS ORDERED: Lactobacillus Rhamnosus GG (Probiotic) Cap PO SCH (20:00)
[2019-12-31] MEDS: Zinc (Zinc Gluconate) 50 MG Tab PO SCH (09:13)
[2019-12-31] MEDS: Lactobacillus Rhamnosus GG (Probiotic) Cap PO SCH ×2 (09:13→20:01)
[2019-12-31] MEDS: Ascorbic Acid 500 MG Tab PO SCH (09:13)
[2019-12-31] MEDS: Cholecalciferol (Vitamin D3) 25 MCG Tab PO SCH (09:13)
[2019-12-31] MEDS: Multivitamins with Iron/Calcium/Folic Acid/Minerals Tab PO SCH (09:13)
[2019-12-31] MEDS: BACLOFEN 10 MG PO SCH ×3 (09:13→20:00)
[2019-12-31] MEDS: Acetaminophen 325 MG Tab PO SCH ×2 (09:13→20:01)
[2019-12-31] MEDS: Cyanocobalamin (Vitamin B12) 250 MCG Tab PO SCH (09:14)
[2019-12-31] MEDS: Fluticasone Propionate Nasal Spray 16 GM Bottle NASBOTH SCH ×2 (09:14→20:00)
[2019-12-31] MEDS: BIOFREEZE TOP SCH ×3 (09:14→20:30)
[2020-01-01] MEDS: Acetaminophen 325 MG Tab PO SCH ×2 (08:29→20:30)
[2020-01-01] MEDS: Lactobacillus Rhamnosus GG (Probiotic) Cap PO SCH ×2 (08:29→20:28)
[2020-01-01] MEDS: Zinc (Zinc Gluconate) 50 MG Tab PO SCH (08:29)
[2020-01-01] MEDS: Cholecalciferol (Vitamin D3) 25 MCG Tab PO SCH (08:29)
[2020-01-01] MEDS: Cyanocobalamin (Vitamin B12) 250 MCG Tab PO SCH (08:29)
[2020-01-01] MEDS: Multivitamins with Iron/Calcium/Folic Acid/Minerals Tab PO SCH (08:30)
[2020-01-01] MEDS: Ascorbic Acid 500 MG Tab PO SCH (08:30)
[2020-01-01] MEDS: Fluticasone Propionate Nasal Spray 16 GM Bottle NASBOTH SCH ×2 (08:31→20:29)
[2020-01-01] MEDS: BIOFREEZE TOP SCH ×3 (08:31→20:33)
[2020-01-01] MEDS: BACLOFEN 10 MG PO SCH ×3 (08:31→20:30)
[2020-01-02] MEDS: Fluticasone Propionate Nasal Spray 16 GM Bottle NASBOTH SCH ×2 (08:42→19:20)
[2020-01-02] MEDS: Cyanocobalamin (Vitamin B12) 250 MCG Tab PO SCH (08:42)
[2020-01-02] MEDS: Cholecalciferol (Vitamin D3) 25 MCG Tab PO SCH (08:42)
[2020-01-02] MEDS: BIOFREEZE TOP SCH ×3 (08:42→19:20)
[2020-01-02] MEDS: Ascorbic Acid 500 MG Tab PO SCH (08:42)
[2020-01-02] MEDS: Lactobacillus Rhamnosus GG (Probiotic) Cap PO SCH ×2 (08:42→19:21)
[2020-01-02] MEDS: Acetaminophen 325 MG Tab PO SCH ×2 (08:42→19:21)
[2020-01-02] MEDS: Multivitamins with Iron/Calcium/Folic Acid/Minerals Tab PO SCH (08:42)
[2020-01-02] MEDS: Zinc (Zinc Gluconate) 50 MG Tab PO SCH (08:42)
[2020-01-02] MEDS: BACLOFEN 10 MG PO SCH ×3 (08:42→19:20)
[2020-01-03] MEDS: Fluticasone Propionate Nasal Spray 16 GM Bottle NASBOTH SCH ×2 (08:54→20:14)
[2020-01-03] MEDS: Lactobacillus Rhamnosus GG (Probiotic) Cap PO SCH ×2 (08:54→20:14)
[2020-01-03] MEDS: Zinc (Zinc Gluconate) 50 MG Tab PO SCH (08:54)
[2020-01-03] MEDS: BIOFREEZE TOP SCH ×3 (08:54→20:15)
[2020-01-03] MEDS: BACLOFEN 10 MG PO SCH ×3 (08:54→20:14)
[2020-01-03] MEDS: Cholecalciferol (Vitamin D3) 25 MCG Tab PO SCH (08:54)
[2020-01-03] MEDS: Multivitamins with Iron/Calcium/Folic Acid/Minerals Tab PO SCH (08:55)
[2020-01-03] MEDS: Acetaminophen 325 MG Tab PO SCH ×2 (08:55→20:14)
[2020-01-03] MEDS: Ascorbic Acid 500 MG Tab PO SCH (08:55)
[2020-01-03] MEDS: Cyanocobalamin (Vitamin B12) 250 MCG Tab PO SCH (08:55)
[2020-01-04] MEDS: Lactobacillus Rhamnosus GG (Probiotic) Cap PO SCH ×2 (08:33→20:24)
[2020-01-04] MEDS: Cholecalciferol (Vitamin D3) 25 MCG Tab PO SCH (08:34)
[2020-01-04] MEDS: Cyanocobalamin (Vitamin B12) 250 MCG Tab PO SCH (08:34)
[2020-01-04] MEDS: Ascorbic Acid 500 MG Tab PO SCH (08:34)
[2020-01-04] MEDS: Zinc (Zinc Gluconate) 50 MG Tab PO SCH (08:35)
[2020-01-04] MEDS: Multivitamins with Iron/Calcium/Folic Acid/Minerals Tab PO SCH (08:35)
[2020-01-04] MEDS: BACLOFEN 10 MG PO SCH ×3 (08:36→20:25)
[2020-01-04] MEDS: Acetaminophen 325 MG Tab PO SCH ×2 (08:36→20:24)
[2020-01-04] MEDS: BIOFREEZE TOP SCH ×3 (08:37→20:25)
[2020-01-04] MEDS: Fluticasone Propionate Nasal Spray 16 GM Bottle NASBOTH SCH ×2 (08:37→20:25)
[2020-01-05] MEDS: Cholecalciferol (Vitamin D3) 25 MCG Tab PO SCH (08:37)
[2020-01-05] MEDS: Acetaminophen 325 MG Tab PO SCH ×2 (08:37→20:02)
[2020-01-05] MEDS: Ascorbic Acid 500 MG Tab PO SCH (08:37)
[2020-01-05] MEDS: Cyanocobalamin (Vitamin B12) 250 MCG Tab PO SCH (08:37)
[2020-01-05] MEDS: Multivitamins with Iron/Calcium/Folic Acid/Minerals Tab PO SCH (08:38)
[2020-01-05] MEDS: Zinc (Zinc Gluconate) 50 MG Tab PO SCH (08:38)
[2020-01-05] MEDS: Lactobacillus Rhamnosus GG (Probiotic) Cap PO SCH ×2 (08:38→20:02)
[2020-01-05] MEDS: BACLOFEN 10 MG PO SCH ×3 (08:39→20:02)
[2020-01-05] MEDS: Fluticasone Propionate Nasal Spray 16 GM Bottle NASBOTH SCH ×2 (08:39→20:02)
[2020-01-05] MEDS: BIOFREEZE TOP SCH ×3 (08:40→20:02)
[2020-01-06] MEDS: Fluticasone Propionate Nasal Spray 16 GM Bottle NASBOTH SCH ×2 (08:17→20:14)
[2020-01-06] MEDS: Multivitamins with Iron/Calcium/Folic Acid/Minerals Tab PO SCH (08:18)
[2020-01-06] MEDS: Zinc (Zinc Gluconate) 50 MG Tab PO SCH (08:18)
[2020-01-06] MEDS: Lactobacillus Rhamnosus GG (Probiotic) Cap PO SCH ×2 (08:18→20:14)
[2020-01-06] MEDS: Cholecalciferol (Vitamin D3) 25 MCG Tab PO SCH (08:18)
[2020-01-06] MEDS: Acetaminophen 325 MG Tab PO SCH ×2 (08:18→20:14)
[2020-01-06] MEDS: Ascorbic Acid 500 MG Tab PO SCH (08:18)
[2020-01-06] MEDS: BACLOFEN 10 MG PO SCH ×3 (08:19→20:14)
[2020-01-06] MEDS: BIOFREEZE TOP SCH ×3 (08:19→20:15)
[2020-01-06] MEDS: Cyanocobalamin (Vitamin B12) 250 MCG Tab PO SCH (08:20)
--- NOTE | 2020-01-06 19:00 | PCM.PN ---
- General Info Date of Service: 01/06/20 Subjective Update: Patient seen today for swing bed follow-up. States he has messaged plastics to let them know he is ready to proceed with surgery; has not heard on a date yet. Continues with spasticity and pain in the right arm. Not sure the baclofen is helping. He saw neurology and they prefer to await surgery and then hopefully get him back on his usual medications rather than adjusting the baclofen. He denies any other pain. No other concerns at this time. - Review of Systems General: Reports: No Symptoms HEENT: Reports: No Symptoms Pulmonary: Reports: No Symptoms Cardiovascular: Reports: No Symptoms Gastrointestinal: Reports: No Symptoms Genitourinary: Reports: No Symptoms Musculoskeletal: Reports: Shoulder Pain Skin: Reports: No Symptoms Neurological: Reports: No Symptoms - Patient Data Vitals - Most Recent: Last Vital Signs Temp 36.2 C 01/06/20 05:30 Pulse 99 01/06/20 05:30 Resp 18 01/06/20 05:30 BP 119/75 01/06/20 05:30 Pulse Ox 97 01/06/20 05:30 Weight - Most Recent: 136.078 kg I&O - Last 24 Hours: Intake & Output 01/06/20 01/06/20 01/06/20 06:59 14:59 22:59 Intake Total 600 700 Output Total 1850 2300 Balance -1250 700 -2300 Med Orders - Current: Current Medications Acetaminophen (Tylenol) 650 mg PO BID [facility] Last Admin: 01/06/20 08:18 Dose: 650 mg Documented by: Acetaminophen (Tylenol) 650 mg PO Q6H PRN PRN Reason: Pain Last Admin: 12/30/19 15:15 Dose: 650 mg Documented by: Ascorbic Acid (Vitamin C) 500 mg PO DAILY [facility] Last Admin: 01/06/20 08:18 Dose: 500 mg Documented by: Baclofen (Lioresal) 5 mg PO TID [facility] Last Admin: 01/06/20 12:15 Dose: 5 mg Documented by: Cholecalciferol (Vitamin D3) 100 mcg PO DAILY [facility] Last Admin: 01/06/20 08:18 Dose: 100 mcg Documented by: Cyanocobalamin (Vitamin B12) 500 mcg PO DAILY [facility] Last Admin: 01/06/20 08:20 Dose: 500 mcg Documented by: Fluticasone Propionate (Flonase) 0 gm NASBOTH BID [facility] Last Admin: 01/06/20 08:17 Dose: 1 spray Documented by: Heparin Sodium (Porcine) (Heparin Lock Flush 100 Units/Ml) 300 unit FLUSH ASDIRECTED PRN PRN Reason: Keep Vein Open Last Admin: 11/27/19 06:45 Dose: 300 unit Documented by: Lactobacillus Rhamnosus (Culturelle) 1 cap PO BID@0800,2000 [facility] Last Admin: 01/06/20 08:18 Dose: 1 cap Documented by: Miconazole (Desenex 2%) 0 gm TOP BID PRN PRN Reason: Rash Last Admin: 12/20/19 20:53 Dose: 1 applic Documented by: Multivitamins/Minerals (Thera M Plus) 1 tab PO DAILY [facility] Last Admin: 01/06/20 08:18 Dose: 1 tab Documented by: Biofreeze Topical * (Pt Own Med*) 0 each TOP TID [facility] Last Admin: 01/06/20 12:15 Dose: 1 each Documented by: Senna/Docusate Sodium (Senna Plus) 2 tab PO BEDTIME PRN PRN Reason: Constipation Last Admin: 01/05/20 11:27 Dose: 2 tab Documented by: Sodium Chloride (Saline Flush) 10 ml IV ASDIRECTED PRN PRN Reason: Keep Vein Open Last Admin: 11/27/19 06:45 Dose: 10 ml Documented by: Zinc Gluconate (Zinc) 50 mg PO DAILY [facility] Last Admin: 01/06/20 08:18 Dose: 50 mg Documented by: Discontinued Medications Alteplase, Recombinant (Cathflo Activase) 2 mg IVPUSH ONETIME ONE Stop: 10/23/19 12:45 Last Admin: 10/23/19 13:30 Dose: 2 mg Documented by: Baclofen (Lioresal) 5 mg PO TID [facility] Stop: 11/21/19 20:00 Last Admin: 11/21/19 19:52 Dose: 5 mg Documented by: Clindamycin HCl (Cleocin) 150 mg PO TID [facility] Stop: 12/28/19 20:01 Last Admin: 12/19/19 09:26 Dose: 150 mg Documented by: Clindamycin HCl (Cleocin) 150 mg PO TID [facility] Stop: 12/28/19 20:01 Last Admin: 12/28/19 21:15 Dose: Not Given Documented by: Clindamycin HCl (Cleocin) 150 mg PO ONETIME ONE Stop: 12/28/19 21:31 Last Admin: 12/28/19 21:34 Dose: 150 mg Documented by: Fluticasone Propionate (Flonase) 0 gm NASBOTH BID [facility] Stop: 11/21/19 20:01 Last Admin: 11/21/19 19:51 Dose: 1 spray Documented by: Heparin Sodium (Porcine) (Heparin Lock Flush 100 Units/Ml) 300 unit FLUSH Q8H [facility] Stop: 11/25/19 23:59 Last Admin: 11/18/19 19:25 Dose: Not Given Documented by: Heparin Sodium (Porcine) (Heparin Lock Flush 100 Units/Ml) 300 unit FLUSH Q8H [facility] Stop: 11/25/19 23:59 Last Admin: 11/25/19 20:08 Dose: 300 unit Documented by: Piperacillin Sod/Tazobactam (Sod 4.5 gm/ Sodium Chloride) 100 mls @ 25 mls/hr IV Q8H [facility] Stop: 11/25/19 23:58 Last Admin: 11/18/19 09:46 Dose: Not Given Documented by: Piperacillin Sod/Tazobactam (Sod 4.5 gm/ Sodium Chloride) 100 mls @ 200 mls/hr IV ONETIME ONE Stop: 11/18/19 15:29 Last Admin: 11/18/19 15:07 Dose: 200 mls/hr Documented by: Piperacillin Sod/Tazobactam (Sod 4.5 gm/ Sodium Chloride) 100 mls @ 25 mls/hr IV Q8H [facility] Stop: 11/25/19 23:58 Last Admin: 11/25/19 23:20 Dose: 25 mls/hr Documented by: Lactobacillus Rhamnosus (Culturelle) 1 cap PO DAILY [facility] Last Admin: 12/20/19 09:12 Dose: 1 cap Documented by: Lactobacillus Rhamnosus (Culturelle) 1 cap PO BID@1000,2200 [facility] Stop: 01/11/20 22:01 Last Admin: 12/30/19 08:17 Dose: 1 cap Documented by: Sodium Bicarbonate (Sodium Bicarbonate 8.4%) Confirm Administered Dose 50 meq .ROUTE .STK-MED ONE Stop: 11/02/19 12:42 Last Admin: 11/02/19 13:28 Dose: Not Given Documented by: - Exam General: Alert, Oriented, Cooperative, No Acute Distress HEENT: Mucous Membr. Moist/[place] Neck: Supple, Trachea Midline, No Thyromegaly. No: Lymphadenopathy Lungs: Clear to Auscultation, Normal Respiratory Effort Cardiovascular: Regular Rate, Regular Rhythm, No Murmurs GI/Abdominal Exam: Normal Bowel Sounds, Soft, Non-Tender, No Organomegaly, No Distention, No Mass Extremities: Non-Tender, No Pedal Edema Peripheral Pulses: 2+: Radial (L), Radial (R) Skin: Warm, Dry Neurological: No New Focal Deficit Sepsis Event Note - Evaluation Sepsis Screening Result: No Definite Risk - Problem List & Annotations (1) Sacral decubitus ulcer SNOMED Code(s): 890021685 Code(s): L89.159 - PRESSURE ULCER OF SACRAL REGION, UNSPECIFIED STAGE Status: Acute Current Visit: No Qualifiers: Pressure injury stage: unspecified pressure injury stage Qualified Code(s): L89.159 - Pressure ulcer of sacral region, unspecified stage (2) Sacral osteomyelitis SNOMED Code(s): 310184532, 660813572 Code(s): M46.28 - OSTEOMYELITIS OF VERTEBRA, SACRAL AND SACROCOCCYGEAL REGION Status: Acute Current Visit: No (3) Chronic sinusitis SNOMED Code(s): 74889279 Code(s): J32.9 - CHRONIC SINUSITIS, UNSPECIFIED Status: Chronic Current Visit: No (4) Constipation SNOMED Code(s): 70201954 Code(s): K59.00 - CONSTIPATION, UNSPECIFIED Status: Chronic Current Visit: No (5) Hypertension SNOMED Code(s): 13598738 Code(s): I10 - ESSENTIAL (PRIMARY) HYPERTENSION Status: Chronic Current Visit: No (6) Multiple sclerosis SNOMED Code(s): 94321583 Code(s): G35 - MULTIPLE SCLEROSIS Status: Chronic Current Visit: No (7) Neurogenic bladder SNOMED Code(s): 722295735 Code(s): N31.9 - NEUROMUSCULAR DYSFUNCTION OF BLADDER, UNSPECIFIED Status: Chronic Current Visit: No (8) Adjustment disorder SNOMED Code(s): 65670674 Code(s): F43.20 - ADJUSTMENT DISORDER, UNSPECIFIED Status: Acute Current Visit: No Qualifiers: Adjustment disorder type: with depressed mood Qualified Code(s): F43.21 - Adjustment disorder with depressed mood - Problem List Review Problem List Initiated/Reviewed/Updated: Yes - Assessment Assessment:: 44 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 Wound has been stable-improved. Awaiting intervention by plastic surgery now. - Plan Plan:: #1 Sacral decubitus ulcer #2 Sacral osteomyelitis - Continue wound cares as per orders from [place]. - Wound clinic and plastic surgery follow-ups as scheduled. - No current infection concerns. #3 Chronic sinusitis #4 Constipation #5 Hypertension #6 MS - Continue home medications. - Follow-up with neurology as scheduled. #7 Neurogenic bladder - Suprapubic catheter is working well. #8 Adjustment disorder - Mood has been good as of late. - Will continue to monitor closely. 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 He will for sure be admitted to swing bed until his wound is healed. If his wound heals, he will be able to discharge but will need adequate assistance/supports in the community to do so. Code status is DNR/DNI - discussed on admission. No indication for VTE prophylaxis as he is at his usual functional baseline.
[2020-01-07] MEDS: Cholecalciferol (Vitamin D3) 25 MCG Tab PO SCH (09:17)
[2020-01-07] MEDS: Multivitamins with Iron/Calcium/Folic Acid/Minerals Tab PO SCH (09:18)
[2020-01-07] MEDS: Ascorbic Acid 500 MG Tab PO SCH (09:18)
[2020-01-07] MEDS: Lactobacillus Rhamnosus GG (Probiotic) Cap PO SCH ×2 (09:18→20:17)
[2020-01-07] MEDS: Acetaminophen 325 MG Tab PO SCH ×2 (09:18→20:17)
[2020-01-07] MEDS: Cyanocobalamin (Vitamin B12) 250 MCG Tab PO SCH (09:18)
[2020-01-07] MEDS: BACLOFEN 10 MG PO SCH ×3 (09:19→20:21)
[2020-01-07] MEDS: Fluticasone Propionate Nasal Spray 16 GM Bottle NASBOTH SCH ×2 (09:19→20:20)
[2020-01-07] MEDS: BIOFREEZE TOP SCH ×3 (09:19→20:20)
[2020-01-07] MEDS: Zinc (Zinc Gluconate) 50 MG Tab PO SCH (09:20)
[2020-01-08] MEDS: Fluticasone Propionate Nasal Spray 16 GM Bottle NASBOTH SCH ×2 (09:35→20:45)
[2020-01-08] MEDS: BACLOFEN 10 MG PO SCH ×3 (09:35→20:44)
[2020-01-08] MEDS: Acetaminophen 325 MG Tab PO SCH ×2 (09:36→20:44)
[2020-01-08] MEDS: Cyanocobalamin (Vitamin B12) 250 MCG Tab PO SCH (09:36)
[2020-01-08] MEDS: Multivitamins with Iron/Calcium/Folic Acid/Minerals Tab PO SCH (09:36)
[2020-01-08] MEDS: Lactobacillus Rhamnosus GG (Probiotic) Cap PO SCH ×2 (09:36→20:44)
[2020-01-08] MEDS: Cholecalciferol (Vitamin D3) 25 MCG Tab PO SCH (09:36)
[2020-01-08] MEDS: Zinc (Zinc Gluconate) 50 MG Tab PO SCH (09:36)
[2020-01-08] MEDS: Ascorbic Acid 500 MG Tab PO SCH (09:37)
[2020-01-08] MEDS: BIOFREEZE TOP SCH ×3 (09:37→20:45)
[2020-01-09] MEDS: Cholecalciferol (Vitamin D3) 25 MCG Tab PO SCH (09:10)
[2020-01-09] MEDS: Ascorbic Acid 500 MG Tab PO SCH (09:10)
[2020-01-09] MEDS: Multivitamins with Iron/Calcium/Folic Acid/Minerals Tab PO SCH (09:10)
[2020-01-09] MEDS: Cyanocobalamin (Vitamin B12) 250 MCG Tab PO SCH (09:11)
[2020-01-09] MEDS: Acetaminophen 325 MG Tab PO SCH ×2 (09:11→19:38)
[2020-01-09] MEDS: Lactobacillus Rhamnosus GG (Probiotic) Cap PO SCH ×2 (09:11→19:38)
[2020-01-09] MEDS: Zinc (Zinc Gluconate) 50 MG Tab PO SCH (09:11)
[2020-01-09] MEDS: BACLOFEN 10 MG PO SCH ×3 (09:12→19:39)
[2020-01-09] MEDS: BIOFREEZE TOP SCH ×2 (09:13→13:55)
[2020-01-09] MEDS: Fluticasone Propionate Nasal Spray 16 GM Bottle NASBOTH SCH (09:39)
[2020-01-09] MEDS: Fluticasone Propionate Nasal Spray 9.9 ML BOTTLE NASBOTH SCH ×2 (14:04→19:40)
[2020-01-10] MEDS: BIOFREEZE TOP SCH ×4 (05:03→19:28)
[2020-01-10] MEDS: Cholecalciferol (Vitamin D3) 25 MCG Tab PO SCH (07:36)
[2020-01-10] MEDS: Zinc (Zinc Gluconate) 50 MG Tab PO SCH (07:36)
[2020-01-10] MEDS: Acetaminophen 325 MG Tab PO SCH ×2 (07:36→19:26)
[2020-01-10] MEDS: Lactobacillus Rhamnosus GG (Probiotic) Cap PO SCH ×2 (07:36→19:26)
[2020-01-10] MEDS: Multivitamins with Iron/Calcium/Folic Acid/Minerals Tab PO SCH (07:36)
[2020-01-10] MEDS: Ascorbic Acid 500 MG Tab PO SCH (07:37)
[2020-01-10] MEDS: Fluticasone Propionate Nasal Spray 9.9 ML BOTTLE NASBOTH SCH ×2 (07:37→19:27)
[2020-01-10] MEDS: Cyanocobalamin (Vitamin B12) 250 MCG Tab PO SCH (07:37)
[2020-01-10] MEDS: BACLOFEN 10 MG PO SCH ×3 (07:39→19:28)
[2020-01-11] MEDS: BACLOFEN 10 MG PO SCH ×3 (07:27→19:19)
[2020-01-11] MEDS: Fluticasone Propionate Nasal Spray 9.9 ML BOTTLE NASBOTH SCH ×2 (07:27→19:19)
[2020-01-11] MEDS: Lactobacillus Rhamnosus GG (Probiotic) Cap PO SCH ×2 (07:28→19:19)
[2020-01-11] MEDS: Multivitamins with Iron/Calcium/Folic Acid/Minerals Tab PO SCH (07:28)
[2020-01-11] MEDS: BIOFREEZE TOP SCH ×3 (07:28→19:20)
[2020-01-11] MEDS: Acetaminophen 325 MG Tab PO SCH ×2 (07:28→19:19)
[2020-01-11] MEDS: Zinc (Zinc Gluconate) 50 MG Tab PO SCH (07:29)
[2020-01-11] MEDS: Cholecalciferol (Vitamin D3) 25 MCG Tab PO SCH (07:29)
[2020-01-11] MEDS: Cyanocobalamin (Vitamin B12) 250 MCG Tab PO SCH (07:29)
[2020-01-11] MEDS: Ascorbic Acid 500 MG Tab PO SCH (07:30)
[2020-01-12] MEDS: BACLOFEN 10 MG PO SCH ×3 (07:31→19:41)
[2020-01-12] MEDS: Fluticasone Propionate Nasal Spray 9.9 ML BOTTLE NASBOTH SCH ×2 (07:31→19:41)
[2020-01-12] MEDS: BIOFREEZE TOP SCH ×3 (07:31→19:47)
[2020-01-12] MEDS: Acetaminophen 325 MG Tab PO SCH ×2 (07:32→19:41)
[2020-01-12] MEDS: Cholecalciferol (Vitamin D3) 25 MCG Tab PO SCH (07:32)
[2020-01-12] MEDS: Lactobacillus Rhamnosus GG (Probiotic) Cap PO SCH ×2 (07:32→19:41)
[2020-01-12] MEDS: Cyanocobalamin (Vitamin B12) 250 MCG Tab PO SCH (07:32)
[2020-01-12] MEDS: Ascorbic Acid 500 MG Tab PO SCH (07:33)
[2020-01-12] MEDS: Zinc (Zinc Gluconate) 50 MG Tab PO SCH (07:33)
[2020-01-12] MEDS: Multivitamins with Iron/Calcium/Folic Acid/Minerals Tab PO SCH (07:33)
[2020-01-13] MEDS: Fluticasone Propionate Nasal Spray 9.9 ML BOTTLE NASBOTH SCH ×2 (07:34→19:29)
[2020-01-13] MEDS: BACLOFEN 10 MG PO SCH ×3 (07:36→19:49)
[2020-01-13] MEDS: Acetaminophen 325 MG Tab PO SCH ×2 (07:36→19:30)
[2020-01-13] MEDS: Zinc (Zinc Gluconate) 50 MG Tab PO SCH (07:36)
[2020-01-13] MEDS: Lactobacillus Rhamnosus GG (Probiotic) Cap PO SCH ×2 (07:37→19:30)
[2020-01-13] MEDS: Multivitamins with Iron/Calcium/Folic Acid/Minerals Tab PO SCH (07:37)
[2020-01-13] MEDS: Cholecalciferol (Vitamin D3) 25 MCG Tab PO SCH (07:37)
[2020-01-13] MEDS: Cyanocobalamin (Vitamin B12) 250 MCG Tab PO SCH (07:38)
[2020-01-13] MEDS: Ascorbic Acid 500 MG Tab PO SCH (07:38)
[2020-01-13] MEDS: BIOFREEZE TOP SCH ×3 (07:38→19:31)
[2020-01-14] MEDS: Cyanocobalamin (Vitamin B12) 250 MCG Tab PO SCH (08:09)
[2020-01-14] MEDS: Cholecalciferol (Vitamin D3) 25 MCG Tab PO SCH (08:09)
[2020-01-14] MEDS: Ascorbic Acid 500 MG Tab PO SCH (08:09)
[2020-01-14] MEDS: BACLOFEN 10 MG PO SCH ×3 (08:09→20:02)
[2020-01-14] MEDS: Fluticasone Propionate Nasal Spray 9.9 ML BOTTLE NASBOTH SCH ×2 (08:09→20:02)
[2020-01-14] MEDS: Multivitamins with Iron/Calcium/Folic Acid/Minerals Tab PO SCH (08:09)
[2020-01-14] MEDS: Zinc (Zinc Gluconate) 50 MG Tab PO SCH (08:09)
[2020-01-14] MEDS: BIOFREEZE TOP SCH ×3 (08:10→19:15)
[2020-01-14] MEDS: Acetaminophen 325 MG Tab PO SCH ×2 (08:10→20:03)
[2020-01-14] MEDS: Lactobacillus Rhamnosus GG (Probiotic) Cap PO SCH ×2 (08:10→20:02)
[2020-01-15] MEDS: BIOFREEZE TOP SCH ×3 (08:34→20:20)
[2020-01-15] MEDS: Fluticasone Propionate Nasal Spray 9.9 ML BOTTLE NASBOTH SCH ×2 (08:34→20:21)
[2020-01-15] MEDS: BACLOFEN 10 MG PO SCH ×3 (08:36→20:17)
[2020-01-15] MEDS: Acetaminophen 325 MG Tab PO SCH ×2 (08:36→20:19)
[2020-01-15] MEDS: Cholecalciferol (Vitamin D3) 25 MCG Tab PO SCH (08:37)
[2020-01-15] MEDS: Cyanocobalamin (Vitamin B12) 250 MCG Tab PO SCH (08:38)
[2020-01-15] MEDS: Ascorbic Acid 500 MG Tab PO SCH (08:38)
[2020-01-15] MEDS: Lactobacillus Rhamnosus GG (Probiotic) Cap PO SCH ×2 (08:38→20:18)
[2020-01-15] MEDS: Zinc (Zinc Gluconate) 50 MG Tab PO SCH (08:38)
[2020-01-15] MEDS: Multivitamins with Iron/Calcium/Folic Acid/Minerals Tab PO SCH (08:38)
[2020-01-16] MEDS: Fluticasone Propionate Nasal Spray 9.9 ML BOTTLE NASBOTH SCH ×2 (07:35→20:20)
[2020-01-16] MEDS: BACLOFEN 10 MG PO SCH ×3 (07:36→20:27)
[2020-01-16] MEDS: BIOFREEZE TOP SCH ×3 (07:36→20:23)
[2020-01-16] MEDS: Cyanocobalamin (Vitamin B12) 250 MCG Tab PO SCH (07:37)
[2020-01-16] MEDS: Zinc (Zinc Gluconate) 50 MG Tab PO SCH (07:37)
[2020-01-16] MEDS: Ascorbic Acid 500 MG Tab PO SCH (07:37)
[2020-01-16] MEDS: Cholecalciferol (Vitamin D3) 25 MCG Tab PO SCH (07:37)
[2020-01-16] MEDS: Lactobacillus Rhamnosus GG (Probiotic) Cap PO SCH ×2 (07:38→20:21)
[2020-01-16] MEDS: Acetaminophen 325 MG Tab PO SCH ×2 (07:38→20:22)
[2020-01-16] MEDS: Multivitamins with Iron/Calcium/Folic Acid/Minerals Tab PO SCH (07:38)
[2020-01-17] MEDS: Fluticasone Propionate Nasal Spray 9.9 ML BOTTLE NASBOTH SCH ×2 (09:18→20:01)
[2020-01-17] MEDS: BACLOFEN 10 MG PO SCH ×3 (09:19→20:02)
[2020-01-17] MEDS: Acetaminophen 325 MG Tab PO SCH ×2 (09:20→20:03)
[2020-01-17] MEDS: Lactobacillus Rhamnosus GG (Probiotic) Cap PO SCH ×2 (09:20→20:02)
[2020-01-17] MEDS: Cyanocobalamin (Vitamin B12) 250 MCG Tab PO SCH (09:21)
[2020-01-17] MEDS: Cholecalciferol (Vitamin D3) 25 MCG Tab PO SCH (09:21)
[2020-01-17] MEDS: Ascorbic Acid 500 MG Tab PO SCH (09:22)
[2020-01-17] MEDS: Multivitamins with Iron/Calcium/Folic Acid/Minerals Tab PO SCH (09:23)
[2020-01-17] MEDS: Zinc (Zinc Gluconate) 50 MG Tab PO SCH (09:23)
[2020-01-17] MEDS: BIOFREEZE TOP SCH ×3 (09:23→20:04)
[2020-01-18] MEDS: Zinc (Zinc Gluconate) 50 MG Tab PO SCH (07:54)
[2020-01-18] MEDS: Multivitamins with Iron/Calcium/Folic Acid/Minerals Tab PO SCH (07:54)
[2020-01-18] MEDS: BACLOFEN 10 MG PO SCH ×3 (07:54→19:47)
[2020-01-18] MEDS: Fluticasone Propionate Nasal Spray 9.9 ML BOTTLE NASBOTH SCH ×2 (07:54→19:46)
[2020-01-18] MEDS: Lactobacillus Rhamnosus GG (Probiotic) Cap PO SCH ×2 (07:55→19:47)
[2020-01-18] MEDS: Acetaminophen 325 MG Tab PO SCH ×2 (07:55→19:46)
[2020-01-18] MEDS: Cholecalciferol (Vitamin D3) 25 MCG Tab PO SCH (07:55)
[2020-01-18] MEDS: Cyanocobalamin (Vitamin B12) 250 MCG Tab PO SCH (07:55)
[2020-01-18] MEDS: Ascorbic Acid 500 MG Tab PO SCH (07:55)
[2020-01-18] MEDS: BIOFREEZE TOP SCH ×3 (07:57→19:48)
[2020-01-19] MEDS: BACLOFEN 10 MG PO SCH ×3 (07:43→20:01)
[2020-01-19] MEDS: Fluticasone Propionate Nasal Spray 9.9 ML BOTTLE NASBOTH SCH ×2 (07:43→20:00)
[2020-01-19] MEDS: Lactobacillus Rhamnosus GG (Probiotic) Cap PO SCH ×2 (07:44→20:02)
[2020-01-19] MEDS: Acetaminophen 325 MG Tab PO SCH ×2 (07:45→20:01)
[2020-01-19] MEDS: Cyanocobalamin (Vitamin B12) 250 MCG Tab PO SCH (07:45)
[2020-01-19] MEDS: Multivitamins with Iron/Calcium/Folic Acid/Minerals Tab PO SCH (07:45)
[2020-01-19] MEDS: Cholecalciferol (Vitamin D3) 25 MCG Tab PO SCH (07:46)
[2020-01-19] MEDS: Zinc (Zinc Gluconate) 50 MG Tab PO SCH (07:46)
[2020-01-19] MEDS: Ascorbic Acid 500 MG Tab PO SCH (07:46)
[2020-01-19] MEDS: BIOFREEZE TOP SCH ×3 (07:47→20:02)
[2020-01-20] MEDS: Fluticasone Propionate Nasal Spray 9.9 ML BOTTLE NASBOTH SCH ×2 (07:48→19:34)
[2020-01-20] MEDS: BACLOFEN 10 MG PO SCH ×3 (07:48→19:34)
[2020-01-20] MEDS: Cholecalciferol (Vitamin D3) 25 MCG Tab PO SCH (07:48)
[2020-01-20] MEDS: Cyanocobalamin (Vitamin B12) 250 MCG Tab PO SCH (07:49)
[2020-01-20] MEDS: Lactobacillus Rhamnosus GG (Probiotic) Cap PO SCH ×2 (07:49→19:35)
[2020-01-20] MEDS: Multivitamins with Iron/Calcium/Folic Acid/Minerals Tab PO SCH (07:49)
[2020-01-20] MEDS: BIOFREEZE TOP SCH ×3 (07:49→19:35)
[2020-01-20] MEDS: Zinc (Zinc Gluconate) 50 MG Tab PO SCH (07:49)
[2020-01-20] MEDS: Acetaminophen 325 MG Tab PO SCH ×2 (07:49→19:36)
[2020-01-20] MEDS: Ascorbic Acid 500 MG Tab PO SCH (07:50)
[2020-01-21] MEDS: Fluticasone Propionate Nasal Spray 9.9 ML BOTTLE NASBOTH SCH ×2 (07:38→20:15)
[2020-01-21] MEDS: BIOFREEZE TOP SCH ×3 (07:38→20:16)
[2020-01-21] MEDS: BACLOFEN 10 MG PO SCH ×3 (07:39→20:15)
[2020-01-21] MEDS: Zinc (Zinc Gluconate) 50 MG Tab PO SCH (07:39)
[2020-01-21] MEDS: Acetaminophen 325 MG Tab PO SCH ×2 (07:39→20:16)
[2020-01-21] MEDS: Multivitamins with Iron/Calcium/Folic Acid/Minerals Tab PO SCH (07:39)
[2020-01-21] MEDS: Cyanocobalamin (Vitamin B12) 250 MCG Tab PO SCH (07:39)
[2020-01-21] MEDS: Cholecalciferol (Vitamin D3) 25 MCG Tab PO SCH (07:39)
[2020-01-21] MEDS: Ascorbic Acid 500 MG Tab PO SCH (07:39)
[2020-01-21] MEDS: Lactobacillus Rhamnosus GG (Probiotic) Cap PO SCH ×2 (07:40→20:15)
[2020-01-22] MEDS: BACLOFEN 10 MG PO SCH ×3 (07:29→21:02)
[2020-01-22] MEDS: Fluticasone Propionate Nasal Spray 9.9 ML BOTTLE NASBOTH SCH ×2 (07:29→20:28)
[2020-01-22] MEDS: Cholecalciferol (Vitamin D3) 25 MCG Tab PO SCH (07:30)
[2020-01-22] MEDS: Ascorbic Acid 500 MG Tab PO SCH (07:30)
[2020-01-22] MEDS: Acetaminophen 325 MG Tab PO SCH ×2 (07:30→20:29)
[2020-01-22] MEDS: Multivitamins with Iron/Calcium/Folic Acid/Minerals Tab PO SCH (07:30)
[2020-01-22] MEDS: Lactobacillus Rhamnosus GG (Probiotic) Cap PO SCH ×2 (07:30→20:29)
[2020-01-22] MEDS: Zinc (Zinc Gluconate) 50 MG Tab PO SCH (07:30)
[2020-01-22] MEDS: Cyanocobalamin (Vitamin B12) 250 MCG Tab PO SCH (07:31)
[2020-01-22] MEDS: BIOFREEZE TOP SCH ×3 (07:31→21:02)
--- NOTE | 2020-01-22 10:02 | PCM.SN.2 ---
- Free Text/Narrative Note: S: Contacted by nursing due to change in size of the lesion on his ear. Has been there for >1 month. Initially started with a scrape from the lift as far as he knows. He does have some pain with palpation of the lesion. Had been getting smaller but now grew again. Occasionally bleeds also. He does note that he has a history of multiple sunburns to the tops of his ears. O: Vitals reviewed. He has a flesh colored nodule with overlying telangiectasias and areas of shallow ulceration on the pinna of the left ear that is mildly tender but not fluctuant to palpation. A/P: #1 Neoplasm of uncertain behavior of skin - Due to size and location, recommend dermatology consult for biopsy. - He agrees and this will be entered through [employer]. - Nothing further in the meantime unless something changes.
[2020-01-23] MEDS: Fluticasone Propionate Nasal Spray 9.9 ML BOTTLE NASBOTH SCH ×2 (07:46→20:03)
[2020-01-23] MEDS: Lactobacillus Rhamnosus GG (Probiotic) Cap PO SCH ×2 (07:47→20:03)
[2020-01-23] MEDS: Cyanocobalamin (Vitamin B12) 250 MCG Tab PO SCH (07:47)
[2020-01-23] MEDS: Acetaminophen 325 MG Tab PO SCH ×2 (07:47→20:03)
[2020-01-23] MEDS: BACLOFEN 10 MG PO SCH ×3 (07:47→22:28)
[2020-01-23] MEDS: BIOFREEZE TOP SCH ×2 (07:48→11:20)
[2020-01-23] MEDS: Zinc (Zinc Gluconate) 50 MG Tab PO SCH (07:48)
[2020-01-23] MEDS: Multivitamins with Iron/Calcium/Folic Acid/Minerals Tab PO SCH (07:48)
[2020-01-23] MEDS: Cholecalciferol (Vitamin D3) 25 MCG Tab PO SCH (07:48)
[2020-01-23] MEDS: Ascorbic Acid 500 MG Tab PO SCH (07:48)
[2020-01-24] MEDS: BIOFREEZE TOP SCH ×4 (05:24→20:09)
[2020-01-24] MEDS: Fluticasone Propionate Nasal Spray 9.9 ML BOTTLE NASBOTH SCH ×2 (09:13→20:09)
[2020-01-24] MEDS: BACLOFEN 10 MG PO SCH ×3 (09:13→20:07)
[2020-01-24] MEDS: Acetaminophen 325 MG Tab PO SCH ×2 (09:14→20:07)
[2020-01-24] MEDS: Lactobacillus Rhamnosus GG (Probiotic) Cap PO SCH ×2 (09:15→20:07)
[2020-01-24] MEDS: Cyanocobalamin (Vitamin B12) 250 MCG Tab PO SCH (09:15)
[2020-01-24] MEDS: Cholecalciferol (Vitamin D3) 25 MCG Tab PO SCH (09:15)
[2020-01-24] MEDS: Zinc (Zinc Gluconate) 50 MG Tab PO SCH (09:15)
[2020-01-24] MEDS: Multivitamins with Iron/Calcium/Folic Acid/Minerals Tab PO SCH (09:16)
[2020-01-24] MEDS: Ascorbic Acid 500 MG Tab PO SCH (09:16)
[2020-01-25] MEDS: Fluticasone Propionate Nasal Spray 9.9 ML BOTTLE NASBOTH SCH ×2 (09:58→20:45)
[2020-01-25] MEDS: BIOFREEZE TOP SCH ×3 (09:59→20:46)
[2020-01-25] MEDS: Baclofen 10 MG Tab PO SCH ×3 (10:00→20:48)
[2020-01-25] MEDS: Cyanocobalamin (Vitamin B12) 250 MCG Tab PO SCH (10:01)
[2020-01-25] MEDS: Acetaminophen 325 MG Tab PO SCH ×2 (10:01→20:44)
[2020-01-25] MEDS: Ascorbic Acid 500 MG Tab PO SCH (10:01)
[2020-01-25] MEDS: Lactobacillus Rhamnosus GG (Probiotic) Cap PO SCH ×2 (10:02→20:43)
[2020-01-25] MEDS: Multivitamins with Iron/Calcium/Folic Acid/Minerals Tab PO SCH (10:02)
[2020-01-25] MEDS: Cholecalciferol (Vitamin D3) 25 MCG Tab PO SCH (10:02)
[2020-01-25] MEDS: Zinc (Zinc Gluconate) 50 MG Tab PO SCH (10:02)
[2020-01-25] MEDS: BACLOFEN 10 MG PO SCH (10:12)
[2020-01-26] MEDS: BIOFREEZE TOP SCH ×3 (09:35→20:15)
[2020-01-26] MEDS: Fluticasone Propionate Nasal Spray 9.9 ML BOTTLE NASBOTH SCH ×2 (09:35→20:15)
[2020-01-26] MEDS: Baclofen 10 MG Tab PO SCH ×3 (09:36→20:14)
[2020-01-26] MEDS: Acetaminophen 325 MG Tab PO SCH ×2 (09:36→20:13)
[2020-01-26] MEDS: Cholecalciferol (Vitamin D3) 25 MCG Tab PO SCH (09:37)
[2020-01-26] MEDS: Ascorbic Acid 500 MG Tab PO SCH (09:37)
[2020-01-26] MEDS: Cyanocobalamin (Vitamin B12) 250 MCG Tab PO SCH (09:37)
[2020-01-26] MEDS: Zinc (Zinc Gluconate) 50 MG Tab PO SCH (09:38)
[2020-01-26] MEDS: Multivitamins with Iron/Calcium/Folic Acid/Minerals Tab PO SCH (09:38)
[2020-01-26] MEDS: Lactobacillus Rhamnosus GG (Probiotic) Cap PO SCH ×2 (09:38→20:13)
[2020-01-27] MEDS: Cyanocobalamin (Vitamin B12) 250 MCG Tab PO SCH (08:22)
[2020-01-27] MEDS: Ascorbic Acid 500 MG Tab PO SCH (08:22)
[2020-01-27] MEDS: Zinc (Zinc Gluconate) 50 MG Tab PO SCH (08:22)
[2020-01-27] MEDS: Fluticasone Propionate Nasal Spray 9.9 ML BOTTLE NASBOTH SCH ×2 (08:22→19:19)
[2020-01-27] MEDS: Acetaminophen 325 MG Tab PO SCH ×2 (08:22→19:19)
[2020-01-27] MEDS: Lactobacillus Rhamnosus GG (Probiotic) Cap PO SCH ×2 (08:22→19:19)
[2020-01-27] MEDS: Cholecalciferol (Vitamin D3) 25 MCG Tab PO SCH (08:22)
[2020-01-27] MEDS: Multivitamins with Iron/Calcium/Folic Acid/Minerals Tab PO SCH (08:23)
[2020-01-27] MEDS: Baclofen 10 MG Tab PO SCH (08:23)
[2020-01-27] MEDS: BIOFREEZE TOP SCH ×3 (08:23→19:19)
--- NOTE | 2020-01-27 11:40 | PCM.PN ---
- General Info Date of Service: 01/27/20 Subjective Update: 45 yo male seen today for swing bed progress. Patient is overall doing well. His wound has actually been steadily healing since his last visit. He is very pleased with these results. He is not sure if plastic surgery will still be doing any interventions given the healing occurring now. He has some right shoulder pain that is improved from prior. No other concerns today. Is eating well. Ostomy and suprapubic catheter working well. ROS otherwise negative as below. - Review of Systems General: Reports: No Symptoms HEENT: Reports: No Symptoms Pulmonary: Reports: No Symptoms Cardiovascular: Reports: No Symptoms Gastrointestinal: Reports: No Symptoms Genitourinary: Reports: No Symptoms Musculoskeletal: Reports: No Symptoms Skin: Reports: No Symptoms Neurological: Reports: No Symptoms Psychiatric: Reports: No Symptoms - Patient Data Vitals - Most Recent: Last Vital Signs Temp 36.1 C 01/27/20 05:44 Pulse 76 01/27/20 05:44 Resp 18 01/27/20 05:44 BP 107/71 01/27/20 05:44 Pulse Ox 97 01/27/20 05:44 Weight - Most Recent: 136.078 kg I&O - Last 24 Hours: Intake & Output 01/26/20 01/27/20 01/27/20 22:59 06:59 14:59 Intake Total 340 500 560 Output Total 2625 1600 Balance -2285 -1100 560 Med Orders - Current: Current Medications Acetaminophen (Tylenol) 650 mg PO BID [facility] Last Admin: 01/27/20 08:22 Dose: 650 mg Documented by: Acetaminophen (Tylenol) 650 mg PO Q6H PRN PRN Reason: Pain Last Admin: 12/30/19 15:15 Dose: 650 mg Documented by: Ascorbic Acid (Vitamin C) 500 mg PO DAILY [facility] Last Admin: 01/27/20 08:22 Dose: 500 mg Documented by: Baclofen (Lioresal) 5 mg PO TID [facility] Last Admin: 01/25/20 10:12 Dose: Not Given Documented by: Cholecalciferol (Vitamin D3) 100 mcg PO DAILY [facility] Last Admin: 01/27/20 08:22 Dose: 100 mcg Documented by: Cyanocobalamin (Vitamin B12) 500 mcg PO DAILY [facility] Last Admin: 01/27/20 08:22 Dose: 500 mcg Documented by: Fluticasone Propionate (Fluticasone Propionate) 0.33 ml NASBOTH BID [facility] Last Admin: 01/27/20 08:22 Dose: 0.33 ml Documented by: Lactobacillus Rhamnosus (Culturelle) 1 cap PO BID@0800,2000 [facility] Last Admin: 01/27/20 08:22 Dose: 1 cap Documented by: Miconazole (Desenex 2%) 0 gm TOP BID PRN PRN Reason: Rash Last Admin: 12/20/19 20:53 Dose: 1 applic Documented by: Multivitamins/Minerals (Thera M Plus) 1 tab PO DAILY [facility] Last Admin: 01/27/20 08:23 Dose: 1 tab Documented by: Biofreeze Topical * (Pt Own Med*) 0 each TOP TID [facility] Last Admin: 01/27/20 08:23 Dose: 1 each Documented by: Senna/Docusate Sodium (Senna Plus) 2 tab PO BEDTIME PRN PRN Reason: Constipation Last Admin: 01/26/20 20:13 Dose: 2 tab Documented by: Zinc Gluconate (Zinc) 50 mg PO DAILY [facility] Last Admin: 01/27/20 08:22 Dose: 50 mg Documented by: Discontinued Medications Alteplase, Recombinant (Cathflo Activase) 2 mg IVPUSH ONETIME ONE Stop: 10/23/19 12:45 Last Admin: 10/23/19 13:30 Dose: 2 mg Documented by: Baclofen (Lioresal) 5 mg PO TID [facility] Last Admin: 01/27/20 08:23 Dose: 5 mg Documented by: Baclofen (Lioresal) 5 mg PO TID [facility] Stop: 11/21/19 20:00 Last Admin: 11/21/19 19:52 Dose: 5 mg Documented by: Clindamycin HCl (Cleocin) 150 mg PO TID [facility] Stop: 12/28/19 20:01 Last Admin: 12/19/19 09:26 Dose: 150 mg Documented by: Clindamycin HCl (Cleocin) 150 mg PO TID [facility] Stop: 12/28/19 20:01 Last Admin: 12/28/19 21:15 Dose: Not Given Documented by: Clindamycin HCl (Cleocin) 150 mg PO ONETIME ONE Stop: 12/28/19 21:31 Last Admin: 12/28/19 21:34 Dose: 150 mg Documented by: Fluticasone Propionate (Fluticasone Propionate) 0 ml NASBOTH BID [facility] Last Admin: 01/24/20 09:13 Dose: 1 ml Documented by: Fluticasone Propionate (Flonase) 0 gm NASBOTH BID [facility] Stop: 11/21/19 20:01 Last Admin: 11/21/19 19:51 Dose: 1 spray Documented by: Fluticasone Propionate (Flonase) 0 gm NASBOTH BID [facility] Last Admin: 01/09/20 09:39 Dose: Not Given Documented by: Heparin Sodium (Porcine) (Heparin Lock Flush 100 Units/Ml) 300 unit FLUSH ASDIRECTED PRN PRN Reason: Keep Vein Open Last Admin: 11/27/19 06:45 Dose: 300 unit Documented by: Heparin Sodium (Porcine) (Heparin Lock Flush 100 Units/Ml) 300 unit FLUSH Q8H [facility] Stop: 11/25/19 23:59 Last Admin: 11/18/19 19:25 Dose: Not Given Documented by: Heparin Sodium (Porcine) (Heparin Lock Flush 100 Units/Ml) 300 unit FLUSH Q8H [facility] Stop: 11/25/19 23:59 Last Admin: 11/25/19 20:08 Dose: 300 unit Documented by: Piperacillin Sod/Tazobactam (Sod 4.5 gm/ Sodium Chloride) 100 mls @ 25 mls/hr IV Q8H [facility] Stop: 11/25/19 23:58 Last Admin: 11/18/19 09:46 Dose: Not Given Documented by: Piperacillin Sod/Tazobactam (Sod 4.5 gm/ Sodium Chloride) 100 mls @ 200 mls/hr IV ONETIME ONE Stop: 11/18/19 15:29 Last Admin: 11/18/19 15:07 Dose: 200 mls/hr Documented by: Piperacillin Sod/Tazobactam (Sod 4.5 gm/ Sodium Chloride) 100 mls @ 25 mls/hr IV Q8H [facility] Stop: 11/25/19 23:58 Last Admin: 11/25/19 23:20 Dose: 25 mls/hr Documented by: Lactobacillus Rhamnosus (Culturelle) 1 cap PO DAILY [facility] Last Admin: 12/20/19 09:12 Dose: 1 cap Documented by: Lactobacillus Rhamnosus (Culturelle) 1 cap PO BID@1000,2200 [facility] Stop: 01/11/20 22:01 Last Admin: 12/30/19 08:17 Dose: 1 cap Documented by: Sodium Bicarbonate (Sodium Bicarbonate 8.4%) Confirm Administered Dose 50 meq .ROUTE .STK-MED ONE Stop: 11/02/19 12:42 Last Admin: 11/02/19 13:28 Dose: Not Given Documented by: Sodium Chloride (Saline Flush) 10 ml IV ASDIRECTED PRN PRN Reason: Keep Vein Open Last Admin: 11/27/19 06:45 Dose: 10 ml Documented by: - Exam General: Alert, Oriented, Cooperative, No Acute Distress HEENT: Mucous Membr. Moist/[place] Neck: Supple, Trachea Midline, No Thyromegaly. No: Lymphadenopathy Lungs: Clear to Auscultation, Normal Respiratory Effort Cardiovascular: Regular Rate, Regular Rhythm, No Murmurs GI/Abdominal Exam: Normal Bowel Sounds, Soft, Non-Tender, No Organomegaly, No Distention, No Mass Extremities: Normal Inspection, Non-Tender, No Pedal Edema Peripheral Pulses: 2+: Radial (L), Radial (R) Skin: Warm, Dry Neurological: No New Focal Deficit Sepsis Event Note - Evaluation Sepsis Screening Result: No Definite Risk - Focused Exam Vital Signs: Vital Signs Temp Pulse Resp BP Pulse Ox 01/27/20 05:44 36.1 C 76 18 107/71 97 - Problem List & Annotations (1) Sacral decubitus ulcer SNOMED Code(s): 690298006 Code(s): L89.159 - PRESSURE ULCER OF SACRAL REGION, UNSPECIFIED STAGE Status: Acute Current Visit: No Qualifiers: Pressure injury stage: unspecified pressure injury stage Qualified Code(s): L89.159 - Pressure ulcer of sacral region, unspecified stage (2) Sacral osteomyelitis SNOMED Code(s): 004617042, 140158787 Code(s): M46.28 - OSTEOMYELITIS OF VERTEBRA, SACRAL AND SACROCOCCYGEAL REGION Status: Acute Current Visit: No (3) Chronic sinusitis SNOMED Code(s): 27283934 Code(s): J32.9 - CHRONIC SINUSITIS, UNSPECIFIED Status: Chronic Current Visit: No (4) Constipation SNOMED Code(s): 46458252 Code(s): K59.00 - CONSTIPATION, UNSPECIFIED Status: Chronic Current Visit: No (5) Hypertension SNOMED Code(s): 93946871 Code(s): I10 - ESSENTIAL (PRIMARY) HYPERTENSION Status: Chronic Current Visit: No (6) Multiple sclerosis SNOMED Code(s): 30934658 Code(s): G35 - MULTIPLE SCLEROSIS Status: Chronic Current Visit: No (7) Neurogenic bladder SNOMED Code(s): 217341067 Code(s): N31.9 - NEUROMUSCULAR DYSFUNCTION OF BLADDER, UNSPECIFIED Status: Chronic Current Visit: No (8) Adjustment disorder SNOMED Code(s): 89762473 Code(s): F43.20 - ADJUSTMENT DISORDER, UNSPECIFIED Status: Acute Current Visit: No Qualifiers: Adjustment disorder type: with depressed mood Qualified Code(s): F43.21 - Adjustment disorder with depressed mood - Problem List Review Problem List Initiated/Reviewed/Updated: Yes - Assessment Assessment:: 44 yo male on [facility] swing bed for wound cares related to a sacral pressure ulcer. Wound has been now steadily improving. Awaiting intervention by plastic surgery now. No interval issues. - Plan Plan:: #1 Sacral decubitus ulcer #2 Sacral osteomyelitis - Wound is now making steady progress toward healing. - Continue wound cares as per orders from [facility]. - Wound clinic and plastic surgery follow-ups as scheduled. - No current infection concerns. #3 Chronic sinusitis #4 Constipation #5 Hypertension #6 MS - Continue home medications. - Follow-up with neurology as scheduled. #7 Neurogenic bladder - Suprapubic catheter is working well. #8 Adjustment disorder - Mood has continued not to be an issue as he is now optimistic with the healing he is experiencing. - Will continue to monitor closely. Patient is admitted to swing bed - duration is likely medical terminologist but more optimistic now that he may return to more independent living as his wound is healing. When his wound heals, he will be able to discharge but will need adequate assistance/supports in the community to do so. Code status is DNR/DNI - discussed on admission. No indication for VTE prophylaxis as he is at his usual functional baseline.
[2020-01-27] MEDS: BACLOFEN 10 MG PO SCH ×2 (12:12→19:19)
[2020-01-28] MEDS: Ascorbic Acid 500 MG Tab PO SCH (08:19)
[2020-01-28] MEDS: Multivitamins with Iron/Calcium/Folic Acid/Minerals Tab PO SCH (08:19)
[2020-01-28] MEDS: BACLOFEN 10 MG PO SCH ×3 (08:19→19:45)
[2020-01-28] MEDS: Cyanocobalamin (Vitamin B12) 250 MCG Tab PO SCH (08:19)
[2020-01-28] MEDS: Fluticasone Propionate Nasal Spray 9.9 ML BOTTLE NASBOTH SCH ×2 (08:19→19:46)
[2020-01-28] MEDS: Zinc (Zinc Gluconate) 50 MG Tab PO SCH (08:20)
[2020-01-28] MEDS: Cholecalciferol (Vitamin D3) 25 MCG Tab PO SCH (08:20)
[2020-01-28] MEDS: Acetaminophen 325 MG Tab PO SCH ×2 (08:20→19:45)
[2020-01-28] MEDS: BIOFREEZE TOP SCH ×3 (08:20→19:47)
[2020-01-28] MEDS: Lactobacillus Rhamnosus GG (Probiotic) Cap PO SCH ×2 (08:20→19:45)
[2020-01-29] MEDS: BACLOFEN 10 MG PO SCH ×3 (08:02→20:15)
[2020-01-29] MEDS: Lactobacillus Rhamnosus GG (Probiotic) Cap PO SCH ×2 (08:02→20:15)
[2020-01-29] MEDS: Fluticasone Propionate Nasal Spray 9.9 ML BOTTLE NASBOTH SCH ×2 (08:03→20:18)
[2020-01-29] MEDS: Cholecalciferol (Vitamin D3) 25 MCG Tab PO SCH (08:03)
[2020-01-29] MEDS: Cyanocobalamin (Vitamin B12) 250 MCG Tab PO SCH (08:03)
[2020-01-29] MEDS: Multivitamins with Iron/Calcium/Folic Acid/Minerals Tab PO SCH (08:04)
[2020-01-29] MEDS: Zinc (Zinc Gluconate) 50 MG Tab PO SCH (08:04)
[2020-01-29] MEDS: Acetaminophen 325 MG Tab PO SCH ×2 (08:04→20:15)
[2020-01-29] MEDS: Ascorbic Acid 500 MG Tab PO SCH (08:04)
[2020-01-29] MEDS: BIOFREEZE TOP SCH ×3 (08:05→20:19)
[2020-01-30] MEDS: Acetaminophen 325 MG Tab PO SCH ×3 (06:17→20:54)
[2020-01-30] MEDS: Zinc (Zinc Gluconate) 50 MG Tab PO SCH (12:18)
[2020-01-30] MEDS: Cholecalciferol (Vitamin D3) 25 MCG Tab PO SCH (12:18)
[2020-01-30] MEDS: Multivitamins with Iron/Calcium/Folic Acid/Minerals Tab PO SCH (12:18)
[2020-01-30] MEDS: Ascorbic Acid 500 MG Tab PO SCH (12:18)
[2020-01-30] MEDS: Lactobacillus Rhamnosus GG (Probiotic) Cap PO SCH ×2 (12:18→20:54)
[2020-01-30] MEDS: Cyanocobalamin (Vitamin B12) 250 MCG Tab PO SCH (12:18)
[2020-01-30] MEDS: BACLOFEN 10 MG PO SCH ×3 (12:19→20:55)
[2020-01-30] MEDS: BIOFREEZE TOP SCH ×3 (12:19→20:55)
[2020-01-30] MEDS: Fluticasone Propionate Nasal Spray 9.9 ML BOTTLE NASBOTH SCH ×2 (12:20→20:54)
[2020-01-31] MEDS: Fluticasone Propionate Nasal Spray 9.9 ML BOTTLE NASBOTH SCH ×2 (07:26→19:43)
[2020-01-31] MEDS: BIOFREEZE TOP SCH ×3 (07:26→19:44)
[2020-01-31] MEDS: Cholecalciferol (Vitamin D3) 25 MCG Tab PO SCH (07:27)
[2020-01-31] MEDS: Zinc (Zinc Gluconate) 50 MG Tab PO SCH (07:27)
[2020-01-31] MEDS: BACLOFEN 10 MG PO SCH ×3 (07:27→19:43)
[2020-01-31] MEDS: Acetaminophen 325 MG Tab PO SCH ×2 (07:27→19:43)
[2020-01-31] MEDS: Lactobacillus Rhamnosus GG (Probiotic) Cap PO SCH ×2 (07:27→19:43)
[2020-01-31] MEDS: Cyanocobalamin (Vitamin B12) 250 MCG Tab PO SCH (07:28)
[2020-01-31] MEDS: Multivitamins with Iron/Calcium/Folic Acid/Minerals Tab PO SCH (07:28)
[2020-01-31] MEDS: Ascorbic Acid 500 MG Tab PO SCH (07:29)
[2020-02-01] MEDS: BACLOFEN 10 MG PO SCH ×3 (07:36→19:51)
[2020-02-01] MEDS: BIOFREEZE TOP SCH ×3 (07:37→19:50)
[2020-02-01] MEDS: Zinc (Zinc Gluconate) 50 MG Tab PO SCH (07:37)
[2020-02-01] MEDS: Fluticasone Propionate Nasal Spray 9.9 ML BOTTLE NASBOTH SCH ×2 (07:37→19:50)
[2020-02-01] MEDS: Acetaminophen 325 MG Tab PO SCH ×2 (07:38→19:51)
[2020-02-01] MEDS: Cholecalciferol (Vitamin D3) 25 MCG Tab PO SCH (07:38)
[2020-02-01] MEDS: Ascorbic Acid 500 MG Tab PO SCH (07:38)
[2020-02-01] MEDS: Cyanocobalamin (Vitamin B12) 250 MCG Tab PO SCH (07:38)
[2020-02-01] MEDS: Lactobacillus Rhamnosus GG (Probiotic) Cap PO SCH ×2 (07:39→19:51)
[2020-02-01] MEDS: Multivitamins with Iron/Calcium/Folic Acid/Minerals Tab PO SCH (07:39)
[2020-02-02] MEDS: Fluticasone Propionate Nasal Spray 9.9 ML BOTTLE NASBOTH SCH ×2 (07:36→20:22)
[2020-02-02] MEDS: BACLOFEN 10 MG PO SCH ×3 (07:36→20:21)
[2020-02-02] MEDS: Cholecalciferol (Vitamin D3) 25 MCG Tab PO SCH (07:37)
[2020-02-02] MEDS: Multivitamins with Iron/Calcium/Folic Acid/Minerals Tab PO SCH (07:37)
[2020-02-02] MEDS: Lactobacillus Rhamnosus GG (Probiotic) Cap PO SCH ×2 (07:37→20:21)
[2020-02-02] MEDS: Zinc (Zinc Gluconate) 50 MG Tab PO SCH (07:37)
[2020-02-02] MEDS: Acetaminophen 325 MG Tab PO SCH ×2 (07:37→20:22)
[2020-02-02] MEDS: Ascorbic Acid 500 MG Tab PO SCH (07:37)
[2020-02-02] MEDS: BIOFREEZE TOP SCH ×3 (07:38→20:23)
[2020-02-02] MEDS: Cyanocobalamin (Vitamin B12) 250 MCG Tab PO SCH (07:38)
[2020-02-03] MEDS: BIOFREEZE TOP SCH ×3 (07:36→20:08)
[2020-02-03] MEDS: BACLOFEN 10 MG PO SCH ×3 (07:36→20:08)
[2020-02-03] MEDS: Fluticasone Propionate Nasal Spray 9.9 ML BOTTLE NASBOTH SCH ×2 (07:37→20:04)
[2020-02-03] MEDS: Acetaminophen 325 MG Tab PO SCH ×2 (07:37→20:06)
[2020-02-03] MEDS: Lactobacillus Rhamnosus GG (Probiotic) Cap PO SCH ×2 (07:38→20:05)
[2020-02-03] MEDS: Cholecalciferol (Vitamin D3) 25 MCG Tab PO SCH (07:38)
[2020-02-03] MEDS: Ascorbic Acid 500 MG Tab PO SCH (07:38)
[2020-02-03] MEDS: Multivitamins with Iron/Calcium/Folic Acid/Minerals Tab PO SCH (07:38)
[2020-02-03] MEDS: Cyanocobalamin (Vitamin B12) 250 MCG Tab PO SCH (07:39)
[2020-02-03] MEDS: Zinc (Zinc Gluconate) 50 MG Tab PO SCH (07:39)
[2020-02-04] MEDS: Lactobacillus Rhamnosus GG (Probiotic) Cap PO SCH ×2 (08:47→19:47)
[2020-02-04] MEDS: BACLOFEN 10 MG PO SCH ×3 (08:47→19:47)
[2020-02-04] MEDS: Ascorbic Acid 500 MG Tab PO SCH (08:48)
[2020-02-04] MEDS: Cholecalciferol (Vitamin D3) 25 MCG Tab PO SCH (08:48)
[2020-02-04] MEDS: Zinc (Zinc Gluconate) 50 MG Tab PO SCH (08:49)
[2020-02-04] MEDS: Multivitamins with Iron/Calcium/Folic Acid/Minerals Tab PO SCH (08:49)
[2020-02-04] MEDS: Cyanocobalamin (Vitamin B12) 250 MCG Tab PO SCH (08:49)
[2020-02-04] MEDS: Acetaminophen 325 MG Tab PO SCH ×2 (08:49→19:47)
[2020-02-04] MEDS: Fluticasone Propionate Nasal Spray 9.9 ML BOTTLE NASBOTH SCH ×2 (08:50→19:47)
[2020-02-04] MEDS: BIOFREEZE TOP SCH ×3 (08:51→19:48)
[2020-02-05] MEDS: Fluticasone Propionate Nasal Spray 9.9 ML BOTTLE NASBOTH SCH ×2 (09:49→19:27)
[2020-02-05] MEDS: Acetaminophen 325 MG Tab PO SCH ×2 (09:50→19:28)
[2020-02-05] MEDS: BACLOFEN 10 MG PO SCH ×3 (09:50→19:28)
[2020-02-05] MEDS: Cholecalciferol (Vitamin D3) 25 MCG Tab PO SCH (09:51)
[2020-02-05] MEDS: Cyanocobalamin (Vitamin B12) 250 MCG Tab PO SCH (09:51)
[2020-02-05] MEDS: Lactobacillus Rhamnosus GG (Probiotic) Cap PO SCH ×2 (09:52→19:28)
[2020-02-05] MEDS: Multivitamins with Iron/Calcium/Folic Acid/Minerals Tab PO SCH (09:53)
[2020-02-05] MEDS: Zinc (Zinc Gluconate) 50 MG Tab PO SCH (09:53)
[2020-02-05] MEDS: Ascorbic Acid 500 MG Tab PO SCH (09:53)
[2020-02-05] MEDS: BIOFREEZE TOP SCH ×3 (09:54→19:29)
[2020-02-06] MEDS: Acetaminophen 325 MG Tab PO SCH ×2 (07:42→19:32)
[2020-02-06] MEDS: BACLOFEN 10 MG PO SCH ×3 (07:42→20:10)
[2020-02-06] MEDS: Lactobacillus Rhamnosus GG (Probiotic) Cap PO SCH ×2 (07:43→19:33)
[2020-02-06] MEDS: Cholecalciferol (Vitamin D3) 25 MCG Tab PO SCH (07:43)
[2020-02-06] MEDS: Multivitamins with Iron/Calcium/Folic Acid/Minerals Tab PO SCH (07:43)
[2020-02-06] MEDS: Fluticasone Propionate Nasal Spray 9.9 ML BOTTLE NASBOTH SCH ×2 (07:44→19:33)
[2020-02-06] MEDS: Zinc (Zinc Gluconate) 50 MG Tab PO SCH (07:44)
[2020-02-06] MEDS: Ascorbic Acid 500 MG Tab PO SCH (07:44)
[2020-02-06] MEDS: Cyanocobalamin (Vitamin B12) 250 MCG Tab PO SCH (07:44)
[2020-02-06] MEDS: BIOFREEZE TOP SCH ×3 (07:45→20:10)
[2020-02-07] MEDS: Ascorbic Acid 500 MG Tab PO SCH (07:18)
[2020-02-07] MEDS: BIOFREEZE TOP SCH ×3 (07:18→22:45)
[2020-02-07] MEDS: Multivitamins with Iron/Calcium/Folic Acid/Minerals Tab PO SCH (07:18)
[2020-02-07] MEDS: Zinc (Zinc Gluconate) 50 MG Tab PO SCH (07:18)
[2020-02-07] MEDS: BACLOFEN 10 MG PO SCH ×3 (07:18→19:06)
[2020-02-07] MEDS: Lactobacillus Rhamnosus GG (Probiotic) Cap PO SCH ×2 (07:19→19:05)
[2020-02-07] MEDS: Cholecalciferol (Vitamin D3) 25 MCG Tab PO SCH (07:19)
[2020-02-07] MEDS: Acetaminophen 325 MG Tab PO SCH ×2 (07:19→19:05)
[2020-02-07] MEDS: Cyanocobalamin (Vitamin B12) 250 MCG Tab PO SCH (07:19)
[2020-02-07] MEDS: Fluticasone Propionate Nasal Spray 9.9 ML BOTTLE NASBOTH SCH ×2 (07:20→19:06)
[2020-02-08] MEDS: Ascorbic Acid 500 MG Tab PO SCH (07:55)
[2020-02-08] MEDS: Cyanocobalamin (Vitamin B12) 250 MCG Tab PO SCH (07:55)
[2020-02-08] MEDS: Multivitamins with Iron/Calcium/Folic Acid/Minerals Tab PO SCH (07:55)
[2020-02-08] MEDS: Cholecalciferol (Vitamin D3) 25 MCG Tab PO SCH (07:55)
[2020-02-08] MEDS: Zinc (Zinc Gluconate) 50 MG Tab PO SCH (07:55)
[2020-02-08] MEDS: Fluticasone Propionate Nasal Spray 9.9 ML BOTTLE NASBOTH SCH ×2 (07:56→19:12)
[2020-02-08] MEDS: Lactobacillus Rhamnosus GG (Probiotic) Cap PO SCH ×2 (07:56→19:11)
[2020-02-08] MEDS: BIOFREEZE TOP SCH ×3 (07:56→19:12)
[2020-02-08] MEDS: Acetaminophen 325 MG Tab PO SCH ×2 (07:56→19:11)
[2020-02-08] MEDS: BACLOFEN 10 MG PO SCH ×3 (07:56→19:11)
[2020-02-09] MEDS: Acetaminophen 325 MG Tab PO SCH ×2 (09:13→20:17)
[2020-02-09] MEDS: Cyanocobalamin (Vitamin B12) 250 MCG Tab PO SCH (09:13)
[2020-02-09] MEDS: Cholecalciferol (Vitamin D3) 25 MCG Tab PO SCH (09:13)
[2020-02-09] MEDS: Multivitamins with Iron/Calcium/Folic Acid/Minerals Tab PO SCH (09:13)
[2020-02-09] MEDS: Lactobacillus Rhamnosus GG (Probiotic) Cap PO SCH ×2 (09:15→20:17)
[2020-02-09] MEDS: Ascorbic Acid 500 MG Tab PO SCH (09:15)
[2020-02-09] MEDS: Zinc (Zinc Gluconate) 50 MG Tab PO SCH (09:15)
[2020-02-09] MEDS: Fluticasone Propionate Nasal Spray 9.9 ML BOTTLE NASBOTH SCH ×2 (09:16→20:17)
[2020-02-09] MEDS: BACLOFEN 10 MG PO SCH ×3 (09:16→20:19)
[2020-02-09] MEDS: BIOFREEZE TOP SCH ×3 (09:16→20:18)
[2020-02-10] MEDS: Fluticasone Propionate Nasal Spray 9.9 ML BOTTLE NASBOTH SCH ×2 (07:33→20:05)
[2020-02-10] MEDS: BACLOFEN 10 MG PO SCH ×3 (07:33→20:06)
[2020-02-10] MEDS: Acetaminophen 325 MG Tab PO SCH ×2 (07:33→20:05)
[2020-02-10] MEDS: Cholecalciferol (Vitamin D3) 25 MCG Tab PO SCH (07:34)
[2020-02-10] MEDS: Lactobacillus Rhamnosus GG (Probiotic) Cap PO SCH ×2 (07:35→20:04)
[2020-02-10] MEDS: Zinc (Zinc Gluconate) 50 MG Tab PO SCH (07:35)
[2020-02-10] MEDS: BIOFREEZE TOP SCH ×2 (07:35→11:42)
[2020-02-10] MEDS: Multivitamins with Iron/Calcium/Folic Acid/Minerals Tab PO SCH (07:35)
[2020-02-10] MEDS: Cyanocobalamin (Vitamin B12) 250 MCG Tab PO SCH (07:35)
[2020-02-10] MEDS: Ascorbic Acid 500 MG Tab PO SCH (07:35)
[2020-02-11] MEDS: BIOFREEZE TOP SCH ×4 (05:52→19:53)
[2020-02-11] MEDS: BACLOFEN 10 MG PO SCH ×3 (08:49→19:54)
[2020-02-11] MEDS: Fluticasone Propionate Nasal Spray 9.9 ML BOTTLE NASBOTH SCH ×2 (08:49→19:53)
[2020-02-11] MEDS: Acetaminophen 325 MG Tab PO SCH ×2 (08:50→19:53)
[2020-02-11] MEDS: Multivitamins with Iron/Calcium/Folic Acid/Minerals Tab PO SCH (08:51)
[2020-02-11] MEDS: Lactobacillus Rhamnosus GG (Probiotic) Cap PO SCH ×2 (08:51→19:53)
[2020-02-11] MEDS: Cyanocobalamin (Vitamin B12) 250 MCG Tab PO SCH (08:51)
[2020-02-11] MEDS: Ascorbic Acid 500 MG Tab PO SCH (08:51)
[2020-02-11] MEDS: Cholecalciferol (Vitamin D3) 25 MCG Tab PO SCH (08:51)
[2020-02-11] MEDS: Zinc (Zinc Gluconate) 50 MG Tab PO SCH (08:51)
[2020-02-12] MEDS: Fluticasone Propionate Nasal Spray 9.9 ML BOTTLE NASBOTH SCH ×2 (09:01→19:35)
[2020-02-12] MEDS: Acetaminophen 325 MG Tab PO SCH ×2 (09:02→19:34)
[2020-02-12] MEDS: BACLOFEN 10 MG PO SCH ×3 (09:02→19:34)
[2020-02-12] MEDS: Zinc (Zinc Gluconate) 50 MG Tab PO SCH (09:04)
[2020-02-12] MEDS: BIOFREEZE TOP SCH ×3 (09:04→19:35)
[2020-02-12] MEDS: Multivitamins with Iron/Calcium/Folic Acid/Minerals Tab PO SCH (09:04)
[2020-02-12] MEDS: Lactobacillus Rhamnosus GG (Probiotic) Cap PO SCH ×2 (09:04→19:34)
[2020-02-12] MEDS: Cyanocobalamin (Vitamin B12) 250 MCG Tab PO SCH (09:04)
[2020-02-12] MEDS: Cholecalciferol (Vitamin D3) 25 MCG Tab PO SCH (09:04)
[2020-02-12] MEDS: Ascorbic Acid 500 MG Tab PO SCH (09:04)
[2020-02-13] MEDS: Cyanocobalamin (Vitamin B12) 250 MCG Tab PO SCH (08:06)
[2020-02-13] MEDS: Cholecalciferol (Vitamin D3) 25 MCG Tab PO SCH (08:06)
[2020-02-13] MEDS: BIOFREEZE TOP SCH ×3 (08:06→19:34)
[2020-02-13] MEDS: BACLOFEN 10 MG PO SCH ×3 (08:06→19:33)
[2020-02-13] MEDS: Lactobacillus Rhamnosus GG (Probiotic) Cap PO SCH ×2 (08:06→19:34)
[2020-02-13] MEDS: Ascorbic Acid 500 MG Tab PO SCH (08:06)
[2020-02-13] MEDS: Zinc (Zinc Gluconate) 50 MG Tab PO SCH (08:06)
[2020-02-13] MEDS: Multivitamins with Iron/Calcium/Folic Acid/Minerals Tab PO SCH (08:06)
[2020-02-13] MEDS: Fluticasone Propionate Nasal Spray 9.9 ML BOTTLE NASBOTH SCH ×2 (08:06→19:33)
[2020-02-13] MEDS: Acetaminophen 325 MG Tab PO SCH ×2 (08:07→19:34)
[2020-02-14] MEDS: BACLOFEN 10 MG PO SCH ×3 (07:57→20:08)
[2020-02-14] MEDS: Fluticasone Propionate Nasal Spray 9.9 ML BOTTLE NASBOTH SCH ×2 (07:57→20:04)
[2020-02-14] MEDS: Zinc (Zinc Gluconate) 50 MG Tab PO SCH (07:57)
[2020-02-14] MEDS: Cholecalciferol (Vitamin D3) 25 MCG Tab PO SCH (07:58)
[2020-02-14] MEDS: Multivitamins with Iron/Calcium/Folic Acid/Minerals Tab PO SCH (07:58)
[2020-02-14] MEDS: Acetaminophen 325 MG Tab PO SCH ×2 (07:58→20:06)
[2020-02-14] MEDS: BIOFREEZE TOP SCH ×3 (07:59→20:07)
[2020-02-14] MEDS: Cyanocobalamin (Vitamin B12) 250 MCG Tab PO SCH (07:59)
[2020-02-14] MEDS: Lactobacillus Rhamnosus GG (Probiotic) Cap PO SCH ×2 (07:59→20:05)
[2020-02-14] MEDS: Ascorbic Acid 500 MG Tab PO SCH (08:00)
[2020-02-15] MEDS: Fluticasone Propionate Nasal Spray 9.9 ML BOTTLE NASBOTH SCH ×2 (07:31→19:47)
[2020-02-15] MEDS: Cholecalciferol (Vitamin D3) 25 MCG Tab PO SCH (07:32)
[2020-02-15] MEDS: Acetaminophen 325 MG Tab PO SCH ×2 (07:32→19:47)
[2020-02-15] MEDS: Multivitamins with Iron/Calcium/Folic Acid/Minerals Tab PO SCH (07:32)
[2020-02-15] MEDS: BACLOFEN 10 MG PO SCH ×3 (07:32→19:47)
[2020-02-15] MEDS: BIOFREEZE TOP SCH ×3 (07:32→19:48)
[2020-02-15] MEDS: Cyanocobalamin (Vitamin B12) 250 MCG Tab PO SCH (07:33)
[2020-02-15] MEDS: Zinc (Zinc Gluconate) 50 MG Tab PO SCH (07:33)
[2020-02-15] MEDS: Ascorbic Acid 500 MG Tab PO SCH (07:33)
[2020-02-15] MEDS: Lactobacillus Rhamnosus GG (Probiotic) Cap PO SCH ×2 (07:33→19:47)
[2020-02-16] MEDS: Cyanocobalamin (Vitamin B12) 250 MCG Tab PO SCH (08:00)
[2020-02-16] MEDS: BACLOFEN 10 MG PO SCH ×3 (08:00→20:25)
[2020-02-16] MEDS: Fluticasone Propionate Nasal Spray 9.9 ML BOTTLE NASBOTH SCH ×2 (08:00→20:25)
[2020-02-16] MEDS: BIOFREEZE TOP SCH ×3 (08:00→20:26)
[2020-02-16] MEDS: Cholecalciferol (Vitamin D3) 25 MCG Tab PO SCH (08:01)
[2020-02-16] MEDS: Lactobacillus Rhamnosus GG (Probiotic) Cap PO SCH ×2 (08:01→20:25)
[2020-02-16] MEDS: Ascorbic Acid 500 MG Tab PO SCH (08:01)
[2020-02-16] MEDS: Multivitamins with Iron/Calcium/Folic Acid/Minerals Tab PO SCH (08:01)
[2020-02-16] MEDS: Acetaminophen 325 MG Tab PO SCH ×2 (08:01→20:25)
[2020-02-16] MEDS: Zinc (Zinc Gluconate) 50 MG Tab PO SCH (08:01)
[2020-02-17] MEDS: BIOFREEZE TOP SCH ×3 (07:50→19:39)
[2020-02-17] MEDS: BACLOFEN 10 MG PO SCH ×3 (07:50→19:38)
[2020-02-17] MEDS: Fluticasone Propionate Nasal Spray 9.9 ML BOTTLE NASBOTH SCH ×2 (07:50→19:38)
[2020-02-17] MEDS: Ascorbic Acid 500 MG Tab PO SCH (07:51)
[2020-02-17] MEDS: Lactobacillus Rhamnosus GG (Probiotic) Cap PO SCH ×2 (07:51→19:38)
[2020-02-17] MEDS: Multivitamins with Iron/Calcium/Folic Acid/Minerals Tab PO SCH (07:51)
[2020-02-17] MEDS: Cholecalciferol (Vitamin D3) 25 MCG Tab PO SCH (07:51)
[2020-02-17] MEDS: Acetaminophen 325 MG Tab PO SCH ×2 (07:51→19:38)
[2020-02-17] MEDS: Zinc (Zinc Gluconate) 50 MG Tab PO SCH (07:52)
[2020-02-17] MEDS: Cyanocobalamin (Vitamin B12) 250 MCG Tab PO SCH (07:52)
[2020-02-18] MEDS: Cholecalciferol (Vitamin D3) 25 MCG Tab PO SCH (08:38)
[2020-02-18] MEDS: Multivitamins with Iron/Calcium/Folic Acid/Minerals Tab PO SCH (08:38)
[2020-02-18] MEDS: Lactobacillus Rhamnosus GG (Probiotic) Cap PO SCH ×2 (08:38→19:22)
[2020-02-18] MEDS: Cyanocobalamin (Vitamin B12) 250 MCG Tab PO SCH (08:38)
[2020-02-18] MEDS: Zinc (Zinc Gluconate) 50 MG Tab PO SCH (08:39)
[2020-02-18] MEDS: Ascorbic Acid 500 MG Tab PO SCH (08:39)
[2020-02-18] MEDS: Acetaminophen 325 MG Tab PO SCH ×2 (08:39→19:22)
[2020-02-18] MEDS: BACLOFEN 10 MG PO SCH ×3 (08:39→19:23)
[2020-02-18] MEDS: Fluticasone Propionate Nasal Spray 9.9 ML BOTTLE NASBOTH SCH ×2 (08:39→19:22)
[2020-02-18] MEDS: BIOFREEZE TOP SCH ×3 (08:39→19:23)
[2020-02-19] MEDS: BACLOFEN 10 MG PO SCH ×3 (09:07→20:33)
[2020-02-19] MEDS: Fluticasone Propionate Nasal Spray 9.9 ML BOTTLE NASBOTH SCH ×2 (09:07→20:33)
[2020-02-19] MEDS: BIOFREEZE TOP SCH ×3 (09:10→20:00)
[2020-02-19] MEDS: Lactobacillus Rhamnosus GG (Probiotic) Cap PO SCH ×2 (09:14→20:31)
[2020-02-19] MEDS: Multivitamins with Iron/Calcium/Folic Acid/Minerals Tab PO SCH (09:14)
[2020-02-19] MEDS: Acetaminophen 325 MG Tab PO SCH ×2 (09:15→20:31)
[2020-02-19] MEDS: Ascorbic Acid 500 MG Tab PO SCH (09:16)
[2020-02-19] MEDS: Zinc (Zinc Gluconate) 50 MG Tab PO SCH (09:16)
[2020-02-19] MEDS: Cholecalciferol (Vitamin D3) 25 MCG Tab PO SCH (09:16)
[2020-02-19] MEDS: Cyanocobalamin (Vitamin B12) 250 MCG Tab PO SCH (09:16)
[2020-02-20] MEDS: BACLOFEN 10 MG PO SCH ×3 (08:49→20:12)
[2020-02-20] MEDS: Fluticasone Propionate Nasal Spray 9.9 ML BOTTLE NASBOTH SCH ×2 (08:50→20:10)
[2020-02-20] MEDS: Cyanocobalamin (Vitamin B12) 250 MCG Tab PO SCH (08:50)
[2020-02-20] MEDS: Lactobacillus Rhamnosus GG (Probiotic) Cap PO SCH ×2 (08:50→20:09)
[2020-02-20] MEDS: Acetaminophen 325 MG Tab PO SCH ×2 (08:50→20:10)
[2020-02-20] MEDS: Multivitamins with Iron/Calcium/Folic Acid/Minerals Tab PO SCH (08:51)
[2020-02-20] MEDS: BIOFREEZE TOP SCH ×3 (08:51→20:32)
[2020-02-20] MEDS: Ascorbic Acid 500 MG Tab PO SCH (08:51)
[2020-02-20] MEDS: Cholecalciferol (Vitamin D3) 25 MCG Tab PO SCH (08:51)
[2020-02-20] MEDS: Zinc (Zinc Gluconate) 50 MG Tab PO SCH (08:51)
[2020-02-21] MEDS: BIOFREEZE TOP SCH ×3 (07:48→19:45)
[2020-02-21] MEDS: Fluticasone Propionate Nasal Spray 9.9 ML BOTTLE NASBOTH SCH ×2 (07:48→19:44)
[2020-02-21] MEDS: BACLOFEN 10 MG PO SCH ×3 (07:48→19:45)
[2020-02-21] MEDS: Acetaminophen 325 MG Tab PO SCH ×2 (07:49→19:44)
[2020-02-21] MEDS: Cholecalciferol (Vitamin D3) 25 MCG Tab PO SCH (07:51)
[2020-02-21] MEDS: Zinc (Zinc Gluconate) 50 MG Tab PO SCH (07:51)
[2020-02-21] MEDS: Lactobacillus Rhamnosus GG (Probiotic) Cap PO SCH ×2 (07:51→19:44)
[2020-02-21] MEDS: Cyanocobalamin (Vitamin B12) 250 MCG Tab PO SCH (07:51)
[2020-02-21] MEDS: Ascorbic Acid 500 MG Tab PO SCH (07:51)
[2020-02-21] MEDS: Multivitamins with Iron/Calcium/Folic Acid/Minerals Tab PO SCH (07:51)
--- NOTE | 2020-02-21 13:09 | PCM.PN ---
- General Info Date of Service: 02/21/20 Subjective Update: 45 yo male seen today for swing bed follow-up. While frustrated that he is still here, he is pleased with the ongoing healing of his pressure wound. He is not having any pain related to this. Nursing staff noted continued improvement in the wound in terms of size as well as the health of the tissue at the base. He still has his right arm pain but this is improved compared to how it was for awhile. He also recently did have a diagnosis of a skin cancer on his left ear for which he will see dermatology for a Mohs procedure early next week. - Review of Systems General: Reports: No Symptoms HEENT: Reports: No Symptoms Pulmonary: Reports: No Symptoms Cardiovascular: Reports: No Symptoms Gastrointestinal: Reports: No Symptoms Genitourinary: Reports: No Symptoms Musculoskeletal: Reports: No Symptoms Skin: Reports: No Symptoms Neurological: Reports: No Symptoms Psychiatric: Reports: No Symptoms - Patient Data Vitals - Most Recent: Last Vital Signs Temp 36.5 C 02/21/20 06:00 Pulse 78 02/21/20 06:00 Resp 19 02/21/20 06:00 BP 119/75 02/21/20 06:00 Pulse Ox 99 02/21/20 06:00 Weight - Most Recent: 137.892 kg I&O - Last 24 Hours: Intake & Output 02/20/20 02/21/20 02/21/20 22:59 06:59 14:59 Intake Total 450 1040 Output Total 1025 1200 Balance -1025 -750 1040 Med Orders - Current: Current Medications Acetaminophen (Tylenol) 650 mg PO BID [facility] Last Admin: 02/21/20 07:49 Dose: 650 mg Documented by: Acetaminophen (Tylenol) 650 mg PO Q6H PRN PRN Reason: Pain Last Admin: 12/30/19 15:15 Dose: 650 mg Documented by: Ascorbic Acid (Vitamin C) 500 mg PO DAILY [facility] Last Admin: 02/21/20 07:51 Dose: 500 mg Documented by: Baclofen (Lioresal) 5 mg PO TID [facility] Last Admin: 02/21/20 07:48 Dose: 5 mg Documented by: Cholecalciferol (Vitamin D3) 100 mcg PO DAILY [facility] Last Admin: 02/21/20 07:51 Dose: 100 mcg Documented by: Cyanocobalamin (Vitamin B12) 500 mcg PO DAILY [facility] Last Admin: 02/21/20 07:51 Dose: 500 mcg Documented by: Fluticasone Propionate (Fluticasone Propionate) 0.33 ml NASBOTH BID [facility] Last Admin: 02/21/20 07:48 Dose: 1 spray Documented by: Lactobacillus Rhamnosus (Culturelle) 1 cap PO BID@0800,2000 [facility] Last Admin: 02/21/20 07:51 Dose: 1 cap Documented by: Miconazole (Desenex 2%) 0 gm TOP BID PRN PRN Reason: Rash Last Admin: 12/20/19 20:53 Dose: 1 applic Documented by: Multivitamins/Minerals (Thera M Plus) 1 tab PO DAILY [facility] Last Admin: 02/21/20 07:51 Dose: 1 tab Documented by: Biofreeze Topical * (Pt Own Med*) 0 each TOP TID [facility] Last Admin: 02/21/20 07:48 Dose: 1 each Documented by: Senna/Docusate Sodium (Senna Plus) 2 tab PO BEDTIME PRN PRN Reason: Constipation Last Admin: 02/21/20 07:51 Dose: 2 tab Documented by: Zinc Gluconate (Zinc) 50 mg PO DAILY [facility] Last Admin: 02/21/20 07:51 Dose: 50 mg Documented by: Discontinued Medications Alteplase, Recombinant (Cathflo Activase) 2 mg IVPUSH ONETIME ONE Stop: 10/23/19 12:45 Last Admin: 10/23/19 13:30 Dose: 2 mg Documented by: Baclofen (Lioresal) 5 mg PO TID [facility] Last Admin: 01/27/20 08:23 Dose: 5 mg Documented by: Baclofen (Lioresal) 5 mg PO TID [facility] Stop: 11/21/19 20:00 Last Admin: 11/21/19 19:52 Dose: 5 mg Documented by: Clindamycin HCl (Cleocin) 150 mg PO TID [facility] Stop: 12/28/19 20:01 Last Admin: 12/19/19 09:26 Dose: 150 mg Documented by: Clindamycin HCl (Cleocin) 150 mg PO TID [facility] Stop: 12/28/19 20:01 Last Admin: 12/28/19 21:15 Dose: Not Given Documented by: Clindamycin HCl (Cleocin) 150 mg PO ONETIME ONE Stop: 12/28/19 21:31 Last Admin: 12/28/19 21:34 Dose: 150 mg Documented by: Fluticasone Propionate (Fluticasone Propionate) 0 ml NASBOTH BID [facility] Last Admin: 01/24/20 09:13 Dose: 1 ml Documented by: Fluticasone Propionate (Flonase) 0 gm NASBOTH BID [facility] Stop: 11/21/19 20:01 Last Admin: 11/21/19 19:51 Dose: 1 spray Documented by: Fluticasone Propionate (Flonase) 0 gm NASBOTH BID [facility] Last Admin: 01/09/20 09:39 Dose: Not Given Documented by: Heparin Sodium (Porcine) (Heparin Lock Flush 100 Units/Ml) 300 unit FLUSH ASDIRECTED PRN PRN Reason: Keep Vein Open Last Admin: 11/27/19 06:45 Dose: 300 unit Documented by: Heparin Sodium (Porcine) (Heparin Lock Flush 100 Units/Ml) 300 unit FLUSH Q8H [facility] Stop: 11/25/19 23:59 Last Admin: 11/18/19 19:25 Dose: Not Given Documented by: Heparin Sodium (Porcine) (Heparin Lock Flush 100 Units/Ml) 300 unit FLUSH Q8H [facility] Stop: 11/25/19 23:59 Last Admin: 11/25/19 20:08 Dose: 300 unit Documented by: Piperacillin Sod/Tazobactam (Sod 4.5 gm/ Sodium Chloride) 100 mls @ 25 mls/hr IV Q8H [facility] Stop: 11/25/19 23:58 Last Admin: 11/18/19 09:46 Dose: Not Given Documented by: Piperacillin Sod/Tazobactam (Sod 4.5 gm/ Sodium Chloride) 100 mls @ 200 mls/hr IV ONETIME ONE Stop: 11/18/19 15:29 Last Admin: 11/18/19 15:07 Dose: 200 mls/hr Documented by: Piperacillin Sod/Tazobactam (Sod 4.5 gm/ Sodium Chloride) 100 mls @ 25 mls/hr IV Q8H [facility] Stop: 11/25/19 23:58 Last Admin: 11/25/19 23:20 Dose: 25 mls/hr Documented by: Lactobacillus Rhamnosus (Culturelle) 1 cap PO DAILY [facility] Last Admin: 12/20/19 09:12 Dose: 1 cap Documented by: Lactobacillus Rhamnosus (Culturelle) 1 cap PO BID@1000,2200 [facility] Stop: 01/11/20 22:01 Last Admin: 12/30/19 08:17 Dose: 1 cap Documented by: Sodium Bicarbonate (Sodium Bicarbonate 8.4%) Confirm Administered Dose 50 meq .ROUTE .STK-MED ONE Stop: 11/02/19 12:42 Last Admin: 11/02/19 13:28 Dose: Not Given Documented by: Sodium Chloride (Saline Flush) 10 ml IV ASDIRECTED PRN PRN Reason: Keep Vein Open Last Admin: 11/27/19 06:45 Dose: 10 ml Documented by: - Exam General: Alert, Oriented, Cooperative, No Acute Distress HEENT: Pupils Equal, Pupils Reactive, Mucous Membr. Moist/[place] Neck: Supple, Trachea Midline, No Thyromegaly. No: Lymphadenopathy Lungs: Clear to Auscultation, Normal Respiratory Effort Cardiovascular: Regular Rate, Regular Rhythm, No Murmurs GI/Abdominal Exam: Normal Bowel Sounds, Soft, Non-Tender, No Organomegaly, No Distention, No Mass Extremities: Normal Inspection, Non-Tender, No Pedal Edema Peripheral Pulses: 2+: Radial (L), Radial (R) Skin: Warm, Dry Neurological: No New Focal Deficit Sepsis Event Note - Evaluation Sepsis Screening Result: No Definite Risk - Focused Exam Vital Signs: Vital Signs Temp Pulse Resp BP Pulse Ox 02/21/20 06:00 36.5 C 78 19 119/75 99 - Problem List & Annotations (1) Sacral decubitus ulcer SNOMED Code(s): 357727419 Code(s): L89.159 - PRESSURE ULCER OF SACRAL REGION, UNSPECIFIED STAGE Status: Acute Current Visit: No Qualifiers: Pressure injury stage: unspecified pressure injury stage Qualified Code(s): L89.159 - Pressure ulcer of sacral region, unspecified stage (2) Sacral osteomyelitis SNOMED Code(s): 511860589, 348680431 Code(s): M46.28 - OSTEOMYELITIS OF VERTEBRA, SACRAL AND SACROCOCCYGEAL REGION Status: Acute Current Visit: No (3) Chronic sinusitis SNOMED Code(s): 28363905 Code(s): J32.9 - CHRONIC SINUSITIS, UNSPECIFIED Status: Chronic Current Visit: No (4) Constipation SNOMED Code(s): 87956598 Code(s): K59.00 - CONSTIPATION, UNSPECIFIED Status: Chronic Current Visit: No (5) Hypertension SNOMED Code(s): 78184083 Code(s): I10 - ESSENTIAL (PRIMARY) HYPERTENSION Status: Chronic Current Visit: No (6) Multiple sclerosis SNOMED Code(s): 95450859 Code(s): G35 - MULTIPLE SCLEROSIS Status: Chronic Current Visit: No (7) Neurogenic bladder SNOMED Code(s): 037474955 Code(s): N31.9 - NEUROMUSCULAR DYSFUNCTION OF BLADDER, UNSPECIFIED Status: Chronic Current Visit: No (8) Adjustment disorder SNOMED Code(s): 11246497 Code(s): F43.20 - ADJUSTMENT DISORDER, UNSPECIFIED Status: Acute Current Visit: No Qualifiers: Adjustment disorder type: with depressed mood Qualified Code(s): F43.21 - Adjustment disorder with depressed mood (9) Squamous cell carcinoma SNOMED Code(s): 059008551 Code(s): PUL8159 - Status: Acute Current Visit: Yes - Problem List Review Problem List Initiated/Reviewed/Updated: Yes - Assessment Assessment:: 44 yo male on [employer] swing bed for wound cares related to a sacral pressure ulcer. Wound continues with steady improvement. No interval issues. - Plan Plan:: #1 Sacral decubitus ulcer #2 Sacral osteomyelitis - Wound is now making steady progress toward healing. - Continue wound cares as per orders from [place]. - Wound clinic and plastic surgery follow-ups as scheduled. - No current infection concerns. #3 Chronic sinusitis #4 Constipation #5 Hypertension #6 MS - Continue home medications. - Follow-up with neurology as scheduled. #7 Neurogenic bladder - Suprapubic catheter is working well. #8 Adjustment disorder - Mood remains good. - Will continue to monitor closely. #9 SCC - Will have Mohs next week by dermatology. Patient is admitted to swing bed - increasing likelihood now that he may return to more independent living as his wound is healing. When his wound heals, he will be able to discharge but will need adequate assistance/supports in the community to do so. Case management is involved to assist with this. Code status is DNR/DNI - discussed on admission. No indication for VTE prophylaxis as he is at his usual functional baseline.
[2020-02-22] MEDS: Fluticasone Propionate Nasal Spray 9.9 ML BOTTLE NASBOTH SCH ×2 (08:03→19:23)
[2020-02-22] MEDS: BIOFREEZE TOP SCH ×3 (08:03→19:23)
[2020-02-22] MEDS: Cyanocobalamin (Vitamin B12) 250 MCG Tab PO SCH (08:04)
[2020-02-22] MEDS: Lactobacillus Rhamnosus GG (Probiotic) Cap PO SCH ×2 (08:04→19:22)
[2020-02-22] MEDS: Cholecalciferol (Vitamin D3) 25 MCG Tab PO SCH (08:04)
[2020-02-22] MEDS: Zinc (Zinc Gluconate) 50 MG Tab PO SCH (08:04)
[2020-02-22] MEDS: Ascorbic Acid 500 MG Tab PO SCH (08:04)
[2020-02-22] MEDS: BACLOFEN 10 MG PO SCH ×3 (08:04→19:23)
[2020-02-22] MEDS: Multivitamins with Iron/Calcium/Folic Acid/Minerals Tab PO SCH (08:04)
[2020-02-22] MEDS: Acetaminophen 325 MG Tab PO SCH ×2 (08:05→19:22)
[2020-02-23] MEDS: Fluticasone Propionate Nasal Spray 9.9 ML BOTTLE NASBOTH SCH ×2 (09:03→19:12)
[2020-02-23] MEDS: Acetaminophen 325 MG Tab PO SCH ×2 (09:04→19:12)
[2020-02-23] MEDS: BIOFREEZE TOP SCH ×3 (09:04→19:12)
[2020-02-23] MEDS: Zinc (Zinc Gluconate) 50 MG Tab PO SCH (09:05)
[2020-02-23] MEDS: Lactobacillus Rhamnosus GG (Probiotic) Cap PO SCH ×2 (09:05→19:11)
[2020-02-23] MEDS: Cyanocobalamin (Vitamin B12) 250 MCG Tab PO SCH (09:05)
[2020-02-23] MEDS: Cholecalciferol (Vitamin D3) 25 MCG Tab PO SCH (09:06)
[2020-02-23] MEDS: BACLOFEN 10 MG PO SCH ×3 (09:06→19:12)
[2020-02-23] MEDS: Multivitamins with Iron/Calcium/Folic Acid/Minerals Tab PO SCH (09:06)
[2020-02-23] MEDS: Ascorbic Acid 500 MG Tab PO SCH (14:06)
[2020-02-24] MEDS: Fluticasone Propionate Nasal Spray 9.9 ML BOTTLE NASBOTH SCH ×2 (07:25→19:21)
[2020-02-24] MEDS: BACLOFEN 10 MG PO SCH ×3 (07:25→19:21)
[2020-02-24] MEDS: Lactobacillus Rhamnosus GG (Probiotic) Cap PO SCH ×2 (07:26→19:21)
[2020-02-24] MEDS: Acetaminophen 325 MG Tab PO SCH ×2 (07:26→19:21)
[2020-02-24] MEDS: Zinc (Zinc Gluconate) 50 MG Tab PO SCH (07:27)
[2020-02-24] MEDS: Multivitamins with Iron/Calcium/Folic Acid/Minerals Tab PO SCH (07:27)
[2020-02-24] MEDS: Cholecalciferol (Vitamin D3) 25 MCG Tab PO SCH (07:27)
[2020-02-24] MEDS: BIOFREEZE TOP SCH ×3 (07:28→20:35)
[2020-02-24] MEDS: Cyanocobalamin (Vitamin B12) 250 MCG Tab PO SCH (07:28)
[2020-02-24] MEDS: Ascorbic Acid 500 MG Tab PO SCH (07:28)
[2020-02-25] MEDS: BACLOFEN 10 MG PO SCH ×3 (08:44→21:07)
[2020-02-25] MEDS: Ascorbic Acid 500 MG Tab PO SCH (08:45)
[2020-02-25] MEDS: BIOFREEZE TOP SCH ×3 (08:45→21:08)
[2020-02-25] MEDS: Fluticasone Propionate Nasal Spray 9.9 ML BOTTLE NASBOTH SCH ×2 (08:45→21:08)
[2020-02-25] MEDS: Cholecalciferol (Vitamin D3) 25 MCG Tab PO SCH (08:45)
[2020-02-25] MEDS: Cyanocobalamin (Vitamin B12) 250 MCG Tab PO SCH (08:45)
[2020-02-25] MEDS: Multivitamins with Iron/Calcium/Folic Acid/Minerals Tab PO SCH (08:45)
[2020-02-25] MEDS: Acetaminophen 325 MG Tab PO SCH ×2 (08:46→21:06)
[2020-02-25] MEDS: Lactobacillus Rhamnosus GG (Probiotic) Cap PO SCH ×2 (08:46→21:06)
[2020-02-25] MEDS: Zinc (Zinc Gluconate) 50 MG Tab PO SCH (08:46)
[2020-02-26] MEDS: BACLOFEN 10 MG PO SCH ×3 (09:31→20:34)
[2020-02-26] MEDS: Fluticasone Propionate Nasal Spray 9.9 ML BOTTLE NASBOTH SCH ×2 (09:31→20:35)
[2020-02-26] MEDS: BIOFREEZE TOP SCH ×3 (09:31→20:35)
[2020-02-26] MEDS: Lactobacillus Rhamnosus GG (Probiotic) Cap PO SCH ×2 (09:35→20:33)
[2020-02-26] MEDS: Acetaminophen 325 MG Tab PO SCH ×2 (09:35→20:33)
[2020-02-26] MEDS: Zinc (Zinc Gluconate) 50 MG Tab PO SCH (09:36)
[2020-02-26] MEDS: Multivitamins with Iron/Calcium/Folic Acid/Minerals Tab PO SCH (09:36)
[2020-02-26] MEDS: Cyanocobalamin (Vitamin B12) 250 MCG Tab PO SCH (09:36)
[2020-02-26] MEDS: Ascorbic Acid 500 MG Tab PO SCH (09:36)
[2020-02-26] MEDS: Cholecalciferol (Vitamin D3) 25 MCG Tab PO SCH (09:37)
[2020-02-27] MEDS: BACLOFEN 10 MG PO SCH ×3 (07:25→20:16)
[2020-02-27] MEDS: Ascorbic Acid 500 MG Tab PO SCH (07:25)
[2020-02-27] MEDS: Multivitamins with Iron/Calcium/Folic Acid/Minerals Tab PO SCH (07:25)
[2020-02-27] MEDS: Fluticasone Propionate Nasal Spray 9.9 ML BOTTLE NASBOTH SCH ×2 (07:25→20:16)
[2020-02-27] MEDS: Acetaminophen 325 MG Tab PO SCH ×2 (07:25→20:17)
[2020-02-27] MEDS: Cyanocobalamin (Vitamin B12) 250 MCG Tab PO SCH (07:25)
[2020-02-27] MEDS: Zinc (Zinc Gluconate) 50 MG Tab PO SCH (07:26)
[2020-02-27] MEDS: Cholecalciferol (Vitamin D3) 25 MCG Tab PO SCH (07:26)
[2020-02-27] MEDS: Lactobacillus Rhamnosus GG (Probiotic) Cap PO SCH ×2 (07:26→20:17)
[2020-02-27] MEDS: BIOFREEZE TOP SCH ×3 (07:26→20:17)
[2020-02-28] MEDS: BACLOFEN 10 MG PO SCH ×3 (07:29→20:20)
[2020-02-28] MEDS: Fluticasone Propionate Nasal Spray 9.9 ML BOTTLE NASBOTH SCH ×2 (07:30→20:19)
[2020-02-28] MEDS: Acetaminophen 325 MG Tab PO SCH ×2 (07:30→20:19)
[2020-02-28] MEDS: Cyanocobalamin (Vitamin B12) 250 MCG Tab PO SCH (07:31)
[2020-02-28] MEDS: Lactobacillus Rhamnosus GG (Probiotic) Cap PO SCH ×2 (07:31→20:00)
[2020-02-28] MEDS: Ascorbic Acid 500 MG Tab PO SCH (07:31)
[2020-02-28] MEDS: Multivitamins with Iron/Calcium/Folic Acid/Minerals Tab PO SCH (07:31)
[2020-02-28] MEDS: BIOFREEZE TOP SCH ×3 (07:31→20:00)
[2020-02-28] MEDS: Cholecalciferol (Vitamin D3) 25 MCG Tab PO SCH (07:31)
[2020-02-28] MEDS: Zinc (Zinc Gluconate) 50 MG Tab PO SCH (07:31)
[2020-02-29] MEDS: Cholecalciferol (Vitamin D3) 25 MCG Tab PO SCH (10:16)
[2020-02-29] MEDS: Lactobacillus Rhamnosus GG (Probiotic) Cap PO SCH ×2 (10:16→20:21)
[2020-02-29] MEDS: Acetaminophen 325 MG Tab PO SCH ×2 (10:17→20:21)
[2020-02-29] MEDS: Multivitamins with Iron/Calcium/Folic Acid/Minerals Tab PO SCH (10:18)
[2020-02-29] MEDS: Cyanocobalamin (Vitamin B12) 250 MCG Tab PO SCH (10:18)
[2020-02-29] MEDS: Zinc (Zinc Gluconate) 50 MG Tab PO SCH (10:18)
[2020-02-29] MEDS: Ascorbic Acid 500 MG Tab PO SCH (10:18)
[2020-02-29] MEDS: BACLOFEN 10 MG PO SCH ×3 (10:19→20:22)
[2020-02-29] MEDS: BIOFREEZE TOP SCH ×3 (10:19→20:23)
[2020-02-29] MEDS: Fluticasone Propionate Nasal Spray 9.9 ML BOTTLE NASBOTH SCH ×2 (10:20→20:21)
[2020-03-01] MEDS: Zinc (Zinc Gluconate) 50 MG Tab PO SCH (08:36)
[2020-03-01] MEDS: Cholecalciferol (Vitamin D3) 25 MCG Tab PO SCH (08:37)
[2020-03-01] MEDS: Multivitamins with Iron/Calcium/Folic Acid/Minerals Tab PO SCH (08:38)
[2020-03-01] MEDS: Acetaminophen 325 MG Tab PO SCH ×2 (08:38→20:30)
[2020-03-01] MEDS: Ascorbic Acid 500 MG Tab PO SCH (08:38)
[2020-03-01] MEDS: Cyanocobalamin (Vitamin B12) 250 MCG Tab PO SCH (08:38)
[2020-03-01] MEDS: BIOFREEZE TOP SCH ×3 (08:39→20:29)
[2020-03-01] MEDS: Fluticasone Propionate Nasal Spray 9.9 ML BOTTLE NASBOTH SCH ×2 (08:39→20:28)
[2020-03-01] MEDS: Lactobacillus Rhamnosus GG (Probiotic) Cap PO SCH ×2 (08:39→20:30)
[2020-03-01] MEDS: BACLOFEN 10 MG PO SCH ×3 (08:39→20:30)
[2020-03-02] MEDS: Fluticasone Propionate Nasal Spray 9.9 ML BOTTLE NASBOTH SCH ×2 (07:18→20:21)
[2020-03-02] MEDS: BACLOFEN 10 MG PO SCH ×3 (07:18→20:21)
[2020-03-02] MEDS: Cyanocobalamin (Vitamin B12) 250 MCG Tab PO SCH (07:19)
[2020-03-02] MEDS: Lactobacillus Rhamnosus GG (Probiotic) Cap PO SCH ×2 (07:19→20:21)
[2020-03-02] MEDS: Multivitamins with Iron/Calcium/Folic Acid/Minerals Tab PO SCH (07:19)
[2020-03-02] MEDS: Acetaminophen 325 MG Tab PO SCH ×2 (07:19→20:21)
[2020-03-02] MEDS: Zinc (Zinc Gluconate) 50 MG Tab PO SCH (07:19)
[2020-03-02] MEDS: BIOFREEZE TOP SCH ×2 (07:19→11:35)
[2020-03-02] MEDS: Cholecalciferol (Vitamin D3) 25 MCG Tab PO SCH (07:19)
[2020-03-02] MEDS: Ascorbic Acid 500 MG Tab PO SCH (07:19)
[2020-03-03] MEDS: BIOFREEZE TOP SCH ×4 (04:27→20:01)
[2020-03-03] MEDS: Fluticasone Propionate Nasal Spray 9.9 ML BOTTLE NASBOTH SCH ×2 (07:13→20:02)
[2020-03-03] MEDS: BACLOFEN 10 MG PO SCH ×3 (07:14→20:01)
[2020-03-03] MEDS: Acetaminophen 325 MG Tab PO SCH ×2 (07:15→20:01)
[2020-03-03] MEDS: Lactobacillus Rhamnosus GG (Probiotic) Cap PO SCH ×2 (07:15→20:01)
[2020-03-03] MEDS: Cyanocobalamin (Vitamin B12) 250 MCG Tab PO SCH (07:15)
[2020-03-03] MEDS: Zinc (Zinc Gluconate) 50 MG Tab PO SCH (07:15)
[2020-03-03] MEDS: Cholecalciferol (Vitamin D3) 25 MCG Tab PO SCH (07:15)
[2020-03-03] MEDS: Ascorbic Acid 500 MG Tab PO SCH (07:16)
[2020-03-03] MEDS: Multivitamins with Iron/Calcium/Folic Acid/Minerals Tab PO SCH (07:16)
[2020-03-04] MEDS: BACLOFEN 10 MG PO SCH ×3 (09:12→21:02)
[2020-03-04] MEDS: Fluticasone Propionate Nasal Spray 9.9 ML BOTTLE NASBOTH SCH ×2 (09:13→21:04)
[2020-03-04] MEDS: Cholecalciferol (Vitamin D3) 25 MCG Tab PO SCH (09:14)
[2020-03-04] MEDS: Acetaminophen 325 MG Tab PO SCH ×2 (09:14→21:03)
[2020-03-04] MEDS: Lactobacillus Rhamnosus GG (Probiotic) Cap PO SCH ×2 (09:15→21:02)
[2020-03-04] MEDS: Multivitamins with Iron/Calcium/Folic Acid/Minerals Tab PO SCH (09:15)
[2020-03-04] MEDS: Ascorbic Acid 500 MG Tab PO SCH (09:15)
[2020-03-04] MEDS: Zinc (Zinc Gluconate) 50 MG Tab PO SCH (09:15)
[2020-03-04] MEDS: Cyanocobalamin (Vitamin B12) 250 MCG Tab PO SCH (09:15)
[2020-03-04] MEDS: BIOFREEZE TOP SCH ×3 (09:16→21:05)
[2020-03-05] MEDS: Cyanocobalamin (Vitamin B12) 250 MCG Tab PO SCH (08:33)
[2020-03-05] MEDS: Cholecalciferol (Vitamin D3) 25 MCG Tab PO SCH (08:34)
[2020-03-05] MEDS: Ascorbic Acid 500 MG Tab PO SCH (08:34)
[2020-03-05] MEDS: Lactobacillus Rhamnosus GG (Probiotic) Cap PO SCH ×2 (08:34→20:02)
[2020-03-05] MEDS: Zinc (Zinc Gluconate) 50 MG Tab PO SCH (08:34)
[2020-03-05] MEDS: Multivitamins with Iron/Calcium/Folic Acid/Minerals Tab PO SCH (08:34)
[2020-03-05] MEDS: Fluticasone Propionate Nasal Spray 9.9 ML BOTTLE NASBOTH SCH ×2 (08:35→20:01)
[2020-03-05] MEDS: BACLOFEN 10 MG PO SCH ×3 (08:35→20:02)
[2020-03-05] MEDS: BIOFREEZE TOP SCH ×3 (08:36→20:02)
[2020-03-05] MEDS: Acetaminophen 325 MG Tab PO SCH ×2 (08:36→20:01)
[2020-03-06] MEDS: Fluticasone Propionate Nasal Spray 9.9 ML BOTTLE NASBOTH SCH ×2 (08:34→19:52)
[2020-03-06] MEDS: Cholecalciferol (Vitamin D3) 25 MCG Tab PO SCH (08:35)
[2020-03-06] MEDS: Acetaminophen 325 MG Tab PO SCH ×2 (08:35→19:52)
[2020-03-06] MEDS: Zinc (Zinc Gluconate) 50 MG Tab PO SCH (08:36)
[2020-03-06] MEDS: Multivitamins with Iron/Calcium/Folic Acid/Minerals Tab PO SCH (08:36)
[2020-03-06] MEDS: BACLOFEN 10 MG PO SCH ×3 (08:36→19:51)
[2020-03-06] MEDS: Cyanocobalamin (Vitamin B12) 250 MCG Tab PO SCH (08:36)
[2020-03-06] MEDS: Ascorbic Acid 500 MG Tab PO SCH (08:36)
[2020-03-06] MEDS: Lactobacillus Rhamnosus GG (Probiotic) Cap PO SCH ×2 (08:36→19:52)
[2020-03-06] MEDS: BIOFREEZE TOP SCH ×3 (08:36→19:51)
[2020-03-07] MEDS: Lactobacillus Rhamnosus GG (Probiotic) Cap PO SCH ×2 (08:55→19:28)
[2020-03-07] MEDS: BACLOFEN 10 MG PO SCH ×3 (08:55→19:28)
[2020-03-07] MEDS: Acetaminophen 325 MG Tab PO SCH ×2 (08:55→19:28)
[2020-03-07] MEDS: Fluticasone Propionate Nasal Spray 9.9 ML BOTTLE NASBOTH SCH ×2 (08:55→19:29)
[2020-03-07] MEDS: Cholecalciferol (Vitamin D3) 25 MCG Tab PO SCH (08:55)
[2020-03-07] MEDS: Zinc (Zinc Gluconate) 50 MG Tab PO SCH (08:55)
[2020-03-07] MEDS: Multivitamins with Iron/Calcium/Folic Acid/Minerals Tab PO SCH (08:55)
[2020-03-07] MEDS: Cyanocobalamin (Vitamin B12) 250 MCG Tab PO SCH (08:55)
[2020-03-07] MEDS: Ascorbic Acid 500 MG Tab PO SCH (08:55)
[2020-03-07] MEDS: BIOFREEZE TOP SCH ×3 (08:55→19:29)
[2020-03-08] MEDS: Fluticasone Propionate Nasal Spray 9.9 ML BOTTLE NASBOTH SCH ×2 (08:08→20:05)
[2020-03-08] MEDS: BACLOFEN 10 MG PO SCH ×3 (08:08→20:05)
[2020-03-08] MEDS: BIOFREEZE TOP SCH ×3 (08:08→20:06)
[2020-03-08] MEDS: Ascorbic Acid 500 MG Tab PO SCH (08:10)
[2020-03-08] MEDS: Acetaminophen 325 MG Tab PO SCH ×2 (08:10→20:04)
[2020-03-08] MEDS: Multivitamins with Iron/Calcium/Folic Acid/Minerals Tab PO SCH (08:10)
[2020-03-08] MEDS: Zinc (Zinc Gluconate) 50 MG Tab PO SCH (08:10)
[2020-03-08] MEDS: Cholecalciferol (Vitamin D3) 25 MCG Tab PO SCH (08:11)
[2020-03-08] MEDS: Cyanocobalamin (Vitamin B12) 250 MCG Tab PO SCH (08:11)
[2020-03-08] MEDS: Lactobacillus Rhamnosus GG (Probiotic) Cap PO SCH ×2 (08:11→20:03)
[2020-03-09] MEDS: Fluticasone Propionate Nasal Spray 9.9 ML BOTTLE NASBOTH SCH ×2 (09:05→20:42)
[2020-03-09] MEDS: Cyanocobalamin (Vitamin B12) 250 MCG Tab PO SCH (09:05)
[2020-03-09] MEDS: BACLOFEN 10 MG PO SCH ×3 (09:05→20:42)
[2020-03-09] MEDS: Multivitamins with Iron/Calcium/Folic Acid/Minerals Tab PO SCH (09:06)
[2020-03-09] MEDS: Lactobacillus Rhamnosus GG (Probiotic) Cap PO SCH ×2 (09:06→20:42)
[2020-03-09] MEDS: Zinc (Zinc Gluconate) 50 MG Tab PO SCH (09:06)
[2020-03-09] MEDS: Acetaminophen 325 MG Tab PO SCH ×2 (09:06→20:42)
[2020-03-09] MEDS: Cholecalciferol (Vitamin D3) 25 MCG Tab PO SCH (09:06)
[2020-03-09] MEDS: BIOFREEZE TOP SCH ×3 (09:07→20:43)
[2020-03-09] MEDS: Ascorbic Acid 500 MG Tab PO SCH (14:56)
[2020-03-10] MEDS: Fluticasone Propionate Nasal Spray 9.9 ML BOTTLE NASBOTH SCH ×2 (10:07→20:34)
[2020-03-10] MEDS: BACLOFEN 10 MG PO SCH ×3 (10:07→20:34)
[2020-03-10] MEDS: Acetaminophen 325 MG Tab PO SCH ×2 (10:07→20:32)
[2020-03-10] MEDS: Cholecalciferol (Vitamin D3) 25 MCG Tab PO SCH (10:08)
[2020-03-10] MEDS: Cyanocobalamin (Vitamin B12) 250 MCG Tab PO SCH (10:08)
[2020-03-10] MEDS: Multivitamins with Iron/Calcium/Folic Acid/Minerals Tab PO SCH (10:08)
[2020-03-10] MEDS: Ascorbic Acid 500 MG Tab PO SCH (10:09)
[2020-03-10] MEDS: Lactobacillus Rhamnosus GG (Probiotic) Cap PO SCH ×2 (10:09→20:32)
[2020-03-10] MEDS: Zinc (Zinc Gluconate) 50 MG Tab PO SCH (10:09)
[2020-03-10] MEDS: BIOFREEZE TOP SCH ×3 (10:10→20:36)
[2020-03-11] MEDS: BACLOFEN 10 MG PO SCH ×3 (09:00→19:30)
[2020-03-11] MEDS: Fluticasone Propionate Nasal Spray 9.9 ML BOTTLE NASBOTH SCH ×2 (09:00→19:30)
[2020-03-11] MEDS: Cyanocobalamin (Vitamin B12) 250 MCG Tab PO SCH (09:00)
[2020-03-11] MEDS: Acetaminophen 325 MG Tab PO SCH ×2 (09:01→19:30)
[2020-03-11] MEDS: Zinc (Zinc Gluconate) 50 MG Tab PO SCH (09:01)
[2020-03-11] MEDS: Cholecalciferol (Vitamin D3) 25 MCG Tab PO SCH (09:01)
[2020-03-11] MEDS: Ascorbic Acid 500 MG Tab PO SCH (09:01)
[2020-03-11] MEDS: BIOFREEZE TOP SCH ×3 (09:02→19:31)
[2020-03-11] MEDS: Multivitamins with Iron/Calcium/Folic Acid/Minerals Tab PO SCH (09:02)
[2020-03-11] MEDS: Lactobacillus Rhamnosus GG (Probiotic) Cap PO SCH ×2 (09:02→19:30)
[2020-03-12] MEDS: Cholecalciferol (Vitamin D3) 25 MCG Tab PO SCH (09:13)
[2020-03-12] MEDS: Fluticasone Propionate Nasal Spray 9.9 ML BOTTLE NASBOTH SCH ×2 (09:13→19:37)
[2020-03-12] MEDS: BACLOFEN 10 MG PO SCH ×3 (09:13→20:20)
[2020-03-12] MEDS: Cyanocobalamin (Vitamin B12) 250 MCG Tab PO SCH (09:14)
[2020-03-12] MEDS: Zinc (Zinc Gluconate) 50 MG Tab PO SCH (09:14)
[2020-03-12] MEDS: Multivitamins with Iron/Calcium/Folic Acid/Minerals Tab PO SCH (09:15)
[2020-03-12] MEDS: BIOFREEZE TOP SCH ×3 (09:16→20:20)
[2020-03-12] MEDS: Acetaminophen 325 MG Tab PO SCH ×2 (09:16→19:37)
[2020-03-12] MEDS: Ascorbic Acid 500 MG Tab PO SCH (09:16)
[2020-03-12] MEDS: Lactobacillus Rhamnosus GG (Probiotic) Cap PO SCH ×2 (09:16→19:37)
[2020-03-13] MEDS: Cholecalciferol (Vitamin D3) 25 MCG Tab PO SCH (07:43)
[2020-03-13] MEDS: Lactobacillus Rhamnosus GG (Probiotic) Cap PO SCH ×2 (07:43→19:52)
[2020-03-13] MEDS: BACLOFEN 10 MG PO SCH ×3 (07:43→19:52)
[2020-03-13] MEDS: Fluticasone Propionate Nasal Spray 9.9 ML BOTTLE NASBOTH SCH ×2 (07:43→19:52)
[2020-03-13] MEDS: Cyanocobalamin (Vitamin B12) 250 MCG Tab PO SCH (07:44)
[2020-03-13] MEDS: Zinc (Zinc Gluconate) 50 MG Tab PO SCH (07:44)
[2020-03-13] MEDS: BIOFREEZE TOP SCH ×3 (07:44→19:53)
[2020-03-13] MEDS: Acetaminophen 325 MG Tab PO SCH ×2 (07:44→19:52)
[2020-03-13] MEDS: Multivitamins with Iron/Calcium/Folic Acid/Minerals Tab PO SCH (07:45)
[2020-03-13] MEDS: Ascorbic Acid 500 MG Tab PO SCH (07:45)
[2020-03-14] MEDS: Fluticasone Propionate Nasal Spray 9.9 ML BOTTLE NASBOTH SCH ×2 (07:15→19:50)
[2020-03-14] MEDS: Acetaminophen 325 MG Tab PO SCH ×2 (07:15→19:49)
[2020-03-14] MEDS: BACLOFEN 10 MG PO SCH ×3 (07:15→19:48)
[2020-03-14] MEDS: Cyanocobalamin (Vitamin B12) 250 MCG Tab PO SCH (07:16)
[2020-03-14] MEDS: Lactobacillus Rhamnosus GG (Probiotic) Cap PO SCH ×2 (07:16→19:49)
[2020-03-14] MEDS: Cholecalciferol (Vitamin D3) 25 MCG Tab PO SCH (07:16)
[2020-03-14] MEDS: Multivitamins with Iron/Calcium/Folic Acid/Minerals Tab PO SCH (07:16)
[2020-03-14] MEDS: Zinc (Zinc Gluconate) 50 MG Tab PO SCH (07:16)
[2020-03-14] MEDS: Ascorbic Acid 500 MG Tab PO SCH (07:16)
[2020-03-14] MEDS: BIOFREEZE TOP SCH ×3 (07:17→19:50)
[2020-03-15] MEDS: Fluticasone Propionate Nasal Spray 9.9 ML BOTTLE NASBOTH SCH ×2 (07:28→19:58)
[2020-03-15] MEDS: BIOFREEZE TOP SCH ×3 (07:28→20:00)
[2020-03-15] MEDS: Ascorbic Acid 500 MG Tab PO SCH (07:29)
[2020-03-15] MEDS: BACLOFEN 10 MG PO SCH ×3 (07:29→19:57)
[2020-03-15] MEDS: Lactobacillus Rhamnosus GG (Probiotic) Cap PO SCH ×2 (07:29→19:58)
[2020-03-15] MEDS: Cholecalciferol (Vitamin D3) 25 MCG Tab PO SCH (07:29)
[2020-03-15] MEDS: Acetaminophen 325 MG Tab PO SCH ×2 (07:29→19:59)
[2020-03-15] MEDS: Zinc (Zinc Gluconate) 50 MG Tab PO SCH (07:29)
[2020-03-15] MEDS: Multivitamins with Iron/Calcium/Folic Acid/Minerals Tab PO SCH (07:30)
[2020-03-15] MEDS: Cyanocobalamin (Vitamin B12) 250 MCG Tab PO SCH (07:30)
[2020-03-16] MEDS: Fluticasone Propionate Nasal Spray 9.9 ML BOTTLE NASBOTH SCH ×2 (07:31→19:44)
[2020-03-16] MEDS: Cyanocobalamin (Vitamin B12) 250 MCG Tab PO SCH (07:31)
[2020-03-16] MEDS: Cholecalciferol (Vitamin D3) 25 MCG Tab PO SCH (07:31)
[2020-03-16] MEDS: Zinc (Zinc Gluconate) 50 MG Tab PO SCH (07:31)
[2020-03-16] MEDS: BACLOFEN 10 MG PO SCH ×3 (07:31→19:44)
[2020-03-16] MEDS: Acetaminophen 325 MG Tab PO SCH ×2 (07:32→19:44)
[2020-03-16] MEDS: Multivitamins with Iron/Calcium/Folic Acid/Minerals Tab PO SCH (07:32)
[2020-03-16] MEDS: BIOFREEZE TOP SCH ×3 (07:32→19:46)
[2020-03-16] MEDS: Lactobacillus Rhamnosus GG (Probiotic) Cap PO SCH ×2 (07:32→19:44)
[2020-03-16] MEDS: Ascorbic Acid 500 MG Tab PO SCH (07:34)
[2020-03-17] MEDS: Fluticasone Propionate Nasal Spray 9.9 ML BOTTLE NASBOTH SCH ×2 (13:52→19:38)
[2020-03-17] MEDS: BACLOFEN 10 MG PO SCH ×3 (13:53→19:41)
[2020-03-17] MEDS: Acetaminophen 325 MG Tab PO SCH ×2 (13:55→19:39)
[2020-03-17] MEDS: Cholecalciferol (Vitamin D3) 25 MCG Tab PO SCH (13:57)
[2020-03-17] MEDS: Lactobacillus Rhamnosus GG (Probiotic) Cap PO SCH ×2 (13:57→19:37)
[2020-03-17] MEDS: Cyanocobalamin (Vitamin B12) 250 MCG Tab PO SCH (13:57)
[2020-03-17] MEDS: Zinc (Zinc Gluconate) 50 MG Tab PO SCH (13:57)
[2020-03-17] MEDS: Ascorbic Acid 500 MG Tab PO SCH (13:57)
[2020-03-17] MEDS: Multivitamins with Iron/Calcium/Folic Acid/Minerals Tab PO SCH (13:57)
[2020-03-17] MEDS: BIOFREEZE TOP SCH ×3 (13:58→19:42)
[2020-03-17] MEDS: CLINDAMYCIN 300 MG PO SCH (19:42)
[2020-03-17] MEDS ORDERED: Clindamycin HCl 150 MG Cap PO SCH (20:00)
[2020-03-18] MEDS: BACLOFEN 10 MG PO SCH ×3 (11:34→19:58)
[2020-03-18] MEDS: Multivitamins with Iron/Calcium/Folic Acid/Minerals Tab PO SCH (11:35)
[2020-03-18] MEDS: Zinc (Zinc Gluconate) 50 MG Tab PO SCH (11:35)
[2020-03-18] MEDS: Cholecalciferol (Vitamin D3) 25 MCG Tab PO SCH (11:35)
[2020-03-18] MEDS: Cyanocobalamin (Vitamin B12) 250 MCG Tab PO SCH (11:35)
[2020-03-18] MEDS: Lactobacillus Rhamnosus GG (Probiotic) Cap PO SCH ×2 (11:35→21:16)
[2020-03-18] MEDS: Acetaminophen 325 MG Tab PO SCH ×2 (11:36→19:59)
[2020-03-18] MEDS: Ascorbic Acid 500 MG Tab PO SCH (11:36)
[2020-03-18] MEDS: Fluticasone Propionate Nasal Spray 9.9 ML BOTTLE NASBOTH SCH ×2 (11:37→19:58)
[2020-03-18] MEDS: BIOFREEZE TOP SCH ×3 (11:37→21:15)
[2020-03-18] MEDS: CLINDAMYCIN 300 MG PO SCH ×2 (11:38→21:17)
[2020-03-19] MEDS: Acetaminophen 325 MG Tab PO PRN (06:34)
[2020-03-19] MEDS: Lactobacillus Rhamnosus GG (Probiotic) Cap PO SCH ×2 (11:19→19:31)
[2020-03-19] MEDS: Fluticasone Propionate Nasal Spray 9.9 ML BOTTLE NASBOTH SCH ×2 (11:19→19:32)
[2020-03-19] MEDS: Cholecalciferol (Vitamin D3) 25 MCG Tab PO SCH (11:20)
[2020-03-19] MEDS: Ascorbic Acid 500 MG Tab PO SCH (11:20)
[2020-03-19] MEDS: Zinc (Zinc Gluconate) 50 MG Tab PO SCH (11:20)
[2020-03-19] MEDS: Acetaminophen 325 MG Tab PO SCH ×2 (11:20→19:31)
[2020-03-19] MEDS: BIOFREEZE TOP SCH ×3 (11:20→19:32)
[2020-03-19] MEDS: BACLOFEN 10 MG PO SCH ×3 (11:20→19:31)
[2020-03-19] MEDS: CLINDAMYCIN 300 MG PO SCH ×2 (11:21→19:35)
[2020-03-19] MEDS: Cyanocobalamin (Vitamin B12) 250 MCG Tab PO SCH (11:21)
[2020-03-19] MEDS: Multivitamins with Iron/Calcium/Folic Acid/Minerals Tab PO SCH (11:21)
[2020-03-20] MEDS: Cholecalciferol (Vitamin D3) 25 MCG Tab PO SCH (14:22)
[2020-03-20] MEDS: Cyanocobalamin (Vitamin B12) 250 MCG Tab PO SCH (14:22)
[2020-03-20] MEDS: Zinc Sulfate 220 MG (50mg elemental Zinc) Cap PO SCH (14:22)
[2020-03-20] MEDS: Multivitamins with Iron/Calcium/Folic Acid/Minerals Tab PO SCH (14:23)
[2020-03-20] MEDS: Acetaminophen 325 MG Tab PO SCH ×2 (14:23→20:54)
[2020-03-20] MEDS: Fluticasone Propionate Nasal Spray 9.9 ML BOTTLE NASBOTH SCH ×2 (14:23→20:55)
[2020-03-20] MEDS: Ascorbic Acid 500 MG Tab PO SCH (14:23)
[2020-03-20] MEDS: BACLOFEN 10 MG PO SCH ×3 (14:24→20:52)
[2020-03-20] MEDS: BIOFREEZE TOP SCH ×2 (14:25→20:52)
[2020-03-20] MEDS: CLINDAMYCIN 300 MG PO SCH ×2 (14:25→20:54)
[2020-03-20] MEDS: Lactobacillus Rhamnosus GG (Probiotic) Cap PO SCH ×2 (14:26→21:07)
[2020-03-21] MEDS: Acetaminophen 325 MG Tab PO SCH ×2 (08:24→20:47)
[2020-03-21] MEDS: Cholecalciferol (Vitamin D3) 25 MCG Tab PO SCH (08:24)
[2020-03-21] MEDS: Ascorbic Acid 500 MG Tab PO SCH (08:25)
[2020-03-21] MEDS: Multivitamins with Iron/Calcium/Folic Acid/Minerals Tab PO SCH (08:25)
[2020-03-21] MEDS: Cyanocobalamin (Vitamin B12) 250 MCG Tab PO SCH (08:25)
[2020-03-21] MEDS: Zinc Sulfate 220 MG (50mg elemental Zinc) Cap PO SCH (08:25)
[2020-03-21] MEDS: Lactobacillus Rhamnosus GG (Probiotic) Cap PO SCH ×2 (08:25→20:45)
[2020-03-21] MEDS: BIOFREEZE TOP SCH ×3 (08:27→20:49)
[2020-03-21] MEDS: Fluticasone Propionate Nasal Spray 9.9 ML BOTTLE NASBOTH SCH ×2 (08:27→20:46)
[2020-03-21] MEDS: BACLOFEN 10 MG PO SCH ×3 (08:27→20:46)
[2020-03-21] MEDS: CLINDAMYCIN 300 MG PO SCH ×2 (08:27→20:47)
[2020-03-22] MEDS: Cyanocobalamin (Vitamin B12) 250 MCG Tab PO SCH (08:16)
[2020-03-22] MEDS: BIOFREEZE TOP SCH ×3 (08:16→20:03)
[2020-03-22] MEDS: Cholecalciferol (Vitamin D3) 25 MCG Tab PO SCH (08:16)
[2020-03-22] MEDS: Lactobacillus Rhamnosus GG (Probiotic) Cap PO SCH ×2 (08:16→20:03)
[2020-03-22] MEDS: BACLOFEN 10 MG PO SCH ×3 (08:16→20:04)
[2020-03-22] MEDS: Fluticasone Propionate Nasal Spray 9.9 ML BOTTLE NASBOTH SCH ×2 (08:16→20:04)
[2020-03-22] MEDS: Zinc Sulfate 220 MG (50mg elemental Zinc) Cap PO SCH (08:16)
[2020-03-22] MEDS: Multivitamins with Iron/Calcium/Folic Acid/Minerals Tab PO SCH (08:16)
[2020-03-22] MEDS: Acetaminophen 325 MG Tab PO SCH ×2 (08:16→20:04)
[2020-03-22] MEDS: CLINDAMYCIN 300 MG PO SCH (08:16)
[2020-03-22] MEDS: Ascorbic Acid 500 MG Tab PO SCH (08:16)
[2020-03-23] MEDS: Fluticasone Propionate Nasal Spray 9.9 ML BOTTLE NASBOTH SCH ×2 (08:31→19:55)
[2020-03-23] MEDS: Cholecalciferol (Vitamin D3) 25 MCG Tab PO SCH (08:32)
[2020-03-23] MEDS: BACLOFEN 10 MG PO SCH ×3 (08:36→19:54)
[2020-03-23] MEDS: BIOFREEZE TOP SCH ×3 (08:36→19:56)
[2020-03-23] MEDS: Cyanocobalamin (Vitamin B12) 250 MCG Tab PO SCH (08:36)
[2020-03-23] MEDS: Zinc Sulfate 220 MG (50mg elemental Zinc) Cap PO SCH (08:36)
[2020-03-23] MEDS: Lactobacillus Rhamnosus GG (Probiotic) Cap PO SCH ×2 (08:36→19:54)
[2020-03-23] MEDS: Ascorbic Acid 500 MG Tab PO SCH (08:36)
[2020-03-23] MEDS: Multivitamins with Iron/Calcium/Folic Acid/Minerals Tab PO SCH (08:36)
[2020-03-23] MEDS: Acetaminophen 325 MG Tab PO SCH ×2 (08:37→19:54)
--- NOTE | 2020-03-23 13:46 | PCM.PN ---
- General Info Date of Service: 03/23/20 Subjective Update: 45 yo male on swing bed [facility] care seen today for routine follow-up. He was out to many appointments last week. He states that he is doing well at this time. He is pleased that he does not require the wound vac any longer. They are doing regular dressings at this time. He is also pleased that it does not sound like he will need plastic surgery intervention at this point. He had follow-up with dermatology to complete the excision for his skin cancer on the left ear. He has had improved ROM and decreased pain in the right arm. He had an updated MRI last week as well. He is hopeful that it will not be too much longer before he will be able to transition back to an apartment. He denies any pain at this time. His mood is good. His ostomy and suprapubic catheter are working well. He has had no fever or chills. No other new symptoms. - Review of Systems General: Reports: No Symptoms HEENT: Reports: No Symptoms Pulmonary: Reports: No Symptoms Cardiovascular: Reports: No Symptoms Gastrointestinal: Reports: No Symptoms Genitourinary: Reports: No Symptoms Musculoskeletal: Reports: No Symptoms Skin: Reports: No Symptoms Neurological: Reports: No Symptoms - Patient Data Vitals - Most Recent: Last Vital Signs Temp 35.8 C L 03/23/20 06:00 Pulse 74 03/23/20 06:00 Resp 16 03/23/20 06:00 BP 121/72 03/23/20 06:00 Pulse Ox 95 03/23/20 06:00 Weight - Most Recent: 141.294 kg I&O - Last 24 Hours: Intake & Output 03/22/20 03/23/20 03/23/20 22:59 06:59 14:59 Intake Total 560 420 Output Total 2200 950 Balance -1640 -950 420 Med Orders - Current: Current Medications Acetaminophen (Tylenol) 650 mg PO BID [facility] Last Admin: 03/23/20 08:37 Dose: 650 mg Documented by: Acetaminophen (Tylenol) 650 mg PO Q6H PRN PRN Reason: Pain Last Admin: 03/19/20 06:34 Dose: 650 mg Documented by: Ascorbic Acid (Vitamin C) 500 mg PO DAILY [facility] Last Admin: 03/23/20 08:36 Dose: 500 mg Documented by: Baclofen (Lioresal) 5 mg PO TID [facility] Last Admin: 03/23/20 11:46 Dose: 5 mg Documented by: Cholecalciferol (Vitamin D3) 100 mcg PO DAILY [facility] Last Admin: 03/23/20 08:32 Dose: 100 mcg Documented by: Cyanocobalamin (Vitamin B12) 500 mcg PO DAILY [facility] Last Admin: 03/23/20 08:36 Dose: 500 mcg Documented by: Fluticasone Propionate (Fluticasone Propionate) 0.33 ml NASBOTH BID [facility] Last Admin: 03/23/20 08:31 Dose: 1 spray Documented by: Lactobacillus Rhamnosus (Culturelle) 1 cap PO BID@0800,1999 [facility] Last Admin: 03/23/20 08:36 Dose: 1 cap Documented by: Miconazole (Desenex 2%) 0 gm TOP BID PRN PRN Reason: Rash Last Admin: 12/20/19 20:53 Dose: 1 applic Documented by: Multivitamins/Minerals (Thera M Plus) 1 tab PO DAILY [facility] Last Admin: 03/23/20 08:36 Dose: 1 tab Documented by: Biofreeze Topical * (Pt Own Med*) 0 each TOP TID [facility] Last Admin: 03/23/20 11:46 Dose: 1 each Documented by: Senna/Docusate Sodium (Senna Plus) 2 tab PO BEDTIME PRN PRN Reason: Constipation Last Admin: 03/15/20 19:58 Dose: 2 tab Documented by: Zinc Sulfate (Zincate) 220 mg PO DAILY [facility] Last Admin: 03/23/20 08:36 Dose: 220 mg Documented by: Discontinued Medications Alteplase, Recombinant (Cathflo Activase) 2 mg IVPUSH ONETIME ONE Stop: 10/23/19 12:45 Last Admin: 10/23/19 13:30 Dose: 2 mg Documented by: Baclofen (Lioresal) 5 mg PO TID [facility] Last Admin: 01/27/20 08:23 Dose: 5 mg Documented by: Baclofen (Lioresal) 5 mg PO TID [facility] Stop: 11/21/19 20:00 Last Admin: 11/21/19 19:52 Dose: 5 mg Documented by: Clindamycin HCl (Cleocin) 150 mg PO TID [facility] Stop: 12/28/19 20:01 Last Admin: 12/19/19 09:26 Dose: 150 mg Documented by: Clindamycin HCl (Cleocin) 150 mg PO TID [facility] Stop: 12/28/19 20:01 Last Admin: 12/28/19 21:15 Dose: Not Given Documented by: Clindamycin HCl (Cleocin) 150 mg PO ONETIME ONE Stop: 12/28/19 21:31 Last Admin: 12/28/19 21:34 Dose: 150 mg Documented by: Fluticasone Propionate (Fluticasone Propionate) 0 ml NASBOTH BID [facility] Last Admin: 01/24/20 09:13 Dose: 1 ml Documented by: Fluticasone Propionate (Flonase) 0 gm NASBOTH BID [facility] Stop: 11/21/19 20:01 Last Admin: 11/21/19 19:51 Dose: 1 spray Documented by: Fluticasone Propionate (Flonase) 0 gm NASBOTH BID [facility] Last Admin: 01/09/20 09:39 Dose: Not Given Documented by: Heparin Sodium (Porcine) (Heparin Lock Flush 100 Units/Ml) 300 unit FLUSH ASDIRECTED PRN PRN Reason: Keep Vein Open Last Admin: 11/27/19 06:45 Dose: 300 unit Documented by: Heparin Sodium (Porcine) (Heparin Lock Flush 100 Units/Ml) 300 unit FLUSH Q8H [facility] Stop: 11/25/19 23:59 Last Admin: 11/18/19 19:25 Dose: Not Given Documented by: Heparin Sodium (Porcine) (Heparin Lock Flush 100 Units/Ml) 300 unit FLUSH Q8H [facility] Stop: 11/25/19 23:59 Last Admin: 11/25/19 20:08 Dose: 300 unit Documented by: Piperacillin Sod/Tazobactam (Sod 4.5 gm/ Sodium Chloride) 100 mls @ 25 mls/hr IV Q8H [facility] Stop: 11/25/19 23:58 Last Admin: 11/18/19 09:46 Dose: Not Given Documented by: Piperacillin Sod/Tazobactam (Sod 4.5 gm/ Sodium Chloride) 100 mls @ 200 mls/hr IV ONETIME ONE Stop: 11/18/19 15:29 Last Admin: 11/18/19 15:07 Dose: 200 mls/hr Documented by: Piperacillin Sod/Tazobactam (Sod 4.5 gm/ Sodium Chloride) 100 mls @ 25 mls/hr IV Q8H [facility] Stop: 11/25/19 23:58 Last Admin: 11/25/19 23:20 Dose: 25 mls/hr Documented by: Lactobacillus Rhamnosus (Culturelle) 1 cap PO DAILY [facility] Last Admin: 12/20/19 09:12 Dose: 1 cap Documented by: Lactobacillus Rhamnosus (Culturelle) 1 cap PO BID@1000,2200 [facility] Stop: 01/11/20 22:01 Last Admin: 12/30/19 08:17 Dose: 1 cap Documented by: Clindamycin 300mg (Cap (Own Supply)) 1 each PO BID [facility] Stop: 03/22/20 08:01 Last Admin: 03/22/20 08:16 Dose: 1 each Documented by: Sodium Bicarbonate (Sodium Bicarbonate 8.4%) Confirm Administered Dose 50 meq .ROUTE .STK-MED ONE Stop: 11/02/19 12:42 Last Admin: 11/02/19 13:28 Dose: Not Given Documented by: Sodium Chloride (Saline Flush) 10 ml IV ASDIRECTED PRN PRN Reason: Keep Vein Open Last Admin: 11/27/19 06:45 Dose: 10 ml Documented by: Zinc Gluconate (Zinc) 50 mg PO DAILY [facility] Last Admin: 03/19/20 11:20 Dose: Not Given Documented by: - Exam General: Alert, Oriented, Cooperative, No Acute Distress HEENT: Pupils Equal, Pupils Reactive, Mucous Membr. Moist/[place] Neck: Supple, Trachea Midline, No Thyromegaly. No: Lymphadenopathy Lungs: Clear to Auscultation, Normal Respiratory Effort Cardiovascular: Regular Rate, Regular Rhythm, No Murmurs GI/Abdominal Exam: Normal Bowel Sounds, Soft, Non-Tender, No Organomegaly, No Distention, No Mass Extremities: Normal Inspection, Non-Tender, No Pedal Edema, Normal Capillary Refill Peripheral Pulses: 2+: Radial (L), Radial (R) Skin: Warm, Dry, Intact Neurological: No New Focal Deficit Sepsis Event Note - Evaluation Sepsis Screening Result: No Definite Risk - Focused Exam Vital Signs: Vital Signs Temp Pulse Resp BP Pulse Ox 03/23/20 06:00 35.8 C L 74 16 121/72 95 - Problem List & Annotations (1) Sacral decubitus ulcer SNOMED Code(s): 990410417 Code(s): L89.159 - PRESSURE ULCER OF SACRAL REGION, UNSPECIFIED STAGE Status: Acute Current Visit: No Qualifiers: Pressure injury stage: unspecified pressure injury stage Qualified Code(s): L89.159 - Pressure ulcer of sacral region, unspecified stage (2) Sacral osteomyelitis SNOMED Code(s): 984467206, 749634377 Code(s): M46.28 - OSTEOMYELITIS OF [place]TEBRA, SACRAL AND SACROCOCCYGEAL REGION Status: Acute Current Visit: No (3) Chronic sinusitis SNOMED Code(s): 39085758 Code(s): J32.9 - CHRONIC SINUSITIS, UNSPECIFIED Status: Chronic Current Visit: No (4) Constipation SNOMED Code(s): 42438423 Code(s): K59.00 - CONSTIPATION, UNSPECIFIED Status: Chronic Current Visit: No (5) Hypertension SNOMED Code(s): 68564930 Code(s): I10 - ESSENTIAL (PRIMARY) HYPERTENSION Status: Chronic Current Visit: No (6) Multiple sclerosis SNOMED Code(s): 48298508 Code(s): G35 - MULTIPLE SCLEROSIS Status: Chronic Current Visit: No (7) Neurogenic bladder SNOMED Code(s): 041555447 Code(s): N31.9 - NEUROMUSCULAR DYSFUNCTION OF BLADDER, UNSPECIFIED Status: Chronic Current Visit: No (8) Adjustment disorder SNOMED Code(s): 15073490 Code(s): F43.20 - ADJUSTMENT DISORDER, UNSPECIFIED Status: Acute Current Visit: No Qualifiers: Adjustment disorder type: with depressed mood Qualified Code(s): F43.21 - Adjustment disorder with depressed mood (9) Squamous cell carcinoma SNOMED Code(s): 543370733 Code(s): NJQ3279 - Status: Acute Current Visit: Yes - Problem List Review Problem List Initiated/Reviewed/Updated: Yes - Assessment Assessment:: 44 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 Would continues to improve - now on dressing changes with no wound vac. - Plan Plan:: #1 Sacral decubitus ulcer #2 Sacral osteomyelitis - Wound is now making steady progress toward healing. - Continue wound cares as per orders from [place]. - Wound clinic follow-ups as scheduled. - No current infection concerns. #3 Chronic sinusitis #4 Constipation #5 Hypertension #6 MS - Continue home medications. - MRI from last week is stable. - Further management recommendations pending neurology review of the MRI. #7 Neurogenic bladder - Suprapubic catheter is working well. #8 Adjustment disorder - Mood remains good. - Will continue to monitor closely. #9 SCC - Has completed Mohs by dermatology. - Follow-up as recommended by dermatology. Patient is admitted to swing bed - wound is still not resolved but is making steady progress. D/C timing depends on wound healing and ability to coordinate adequate home supports for him. Case management is involved to assist with this. Code status is DNR/DNI - discussed on admission. No indication for VTE prophylaxis as he is at his usual functional baseline.
[2020-03-24] MEDS: Fluticasone Propionate Nasal Spray 9.9 ML BOTTLE NASBOTH SCH ×2 (08:08→19:55)
[2020-03-24] MEDS: BACLOFEN 10 MG PO SCH ×3 (08:08→19:56)
[2020-03-24] MEDS: Zinc Sulfate 220 MG (50mg elemental Zinc) Cap PO SCH (08:09)
[2020-03-24] MEDS: Cyanocobalamin (Vitamin B12) 250 MCG Tab PO SCH (08:09)
[2020-03-24] MEDS: Lactobacillus Rhamnosus GG (Probiotic) Cap PO SCH ×2 (08:09→19:55)
[2020-03-24] MEDS: Acetaminophen 325 MG Tab PO SCH ×2 (08:09→19:55)
[2020-03-24] MEDS: Multivitamins with Iron/Calcium/Folic Acid/Minerals Tab PO SCH (08:09)
[2020-03-24] MEDS: Ascorbic Acid 500 MG Tab PO SCH (08:09)
[2020-03-24] MEDS: Cholecalciferol (Vitamin D3) 25 MCG Tab PO SCH (08:09)
[2020-03-24] MEDS: BIOFREEZE TOP SCH ×3 (08:11→19:56)
[2020-03-25] MEDS: Acetaminophen 325 MG Tab PO SCH ×2 (08:44→19:52)
[2020-03-25] MEDS: Lactobacillus Rhamnosus GG (Probiotic) Cap PO SCH ×2 (08:45→19:52)
[2020-03-25] MEDS: Cholecalciferol (Vitamin D3) 25 MCG Tab PO SCH (08:45)
[2020-03-25] MEDS: Cyanocobalamin (Vitamin B12) 250 MCG Tab PO SCH (08:45)
[2020-03-25] MEDS: BACLOFEN 10 MG PO SCH ×3 (08:46→19:52)
[2020-03-25] MEDS: Ascorbic Acid 500 MG Tab PO SCH (08:46)
[2020-03-25] MEDS: Zinc Sulfate 220 MG (50mg elemental Zinc) Cap PO SCH (08:46)
[2020-03-25] MEDS: Multivitamins with Iron/Calcium/Folic Acid/Minerals Tab PO SCH (08:46)
[2020-03-25] MEDS: Fluticasone Propionate Nasal Spray 9.9 ML BOTTLE NASBOTH SCH ×2 (08:46→19:53)
[2020-03-25] MEDS: BIOFREEZE TOP SCH ×3 (08:47→19:53)
[2020-03-26] MEDS: Acetaminophen 325 MG Tab PO SCH ×3 (05:56→19:48)
[2020-03-26] MEDS: Fluticasone Propionate Nasal Spray 9.9 ML BOTTLE NASBOTH SCH ×2 (11:04→19:47)
[2020-03-26] MEDS: Lactobacillus Rhamnosus GG (Probiotic) Cap PO SCH ×2 (11:04→19:47)
[2020-03-26] MEDS: BIOFREEZE TOP SCH ×3 (11:04→19:48)
[2020-03-26] MEDS: BACLOFEN 10 MG PO SCH ×3 (11:04→19:47)
[2020-03-26] MEDS: Multivitamins with Iron/Calcium/Folic Acid/Minerals Tab PO SCH (11:05)
[2020-03-26] MEDS: Cyanocobalamin (Vitamin B12) 250 MCG Tab PO SCH (11:05)
[2020-03-26] MEDS: Ascorbic Acid 500 MG Tab PO SCH (11:06)
[2020-03-26] MEDS: Cholecalciferol (Vitamin D3) 25 MCG Tab PO SCH (11:06)
[2020-03-26] MEDS: Zinc Sulfate 220 MG (50mg elemental Zinc) Cap PO SCH (11:06)
[2020-03-27] MEDS: Fluticasone Propionate Nasal Spray 9.9 ML BOTTLE NASBOTH SCH (09:28)
[2020-03-27] MEDS: Acetaminophen 325 MG Tab PO SCH ×2 (09:29→20:00)
[2020-03-27] MEDS: BACLOFEN 10 MG PO SCH ×3 (09:29→19:59)
[2020-03-27] MEDS: Ascorbic Acid 500 MG Tab PO SCH (09:30)
[2020-03-27] MEDS: Cyanocobalamin (Vitamin B12) 250 MCG Tab PO SCH (09:30)
[2020-03-27] MEDS: Lactobacillus Rhamnosus GG (Probiotic) Cap PO SCH ×2 (09:30→19:59)
[2020-03-27] MEDS: Zinc Sulfate 220 MG (50mg elemental Zinc) Cap PO SCH (09:30)
[2020-03-27] MEDS: Cholecalciferol (Vitamin D3) 25 MCG Tab PO SCH (09:30)
[2020-03-27] MEDS: Multivitamins with Iron/Calcium/Folic Acid/Minerals Tab PO SCH (09:30)
[2020-03-27] MEDS: BIOFREEZE TOP SCH ×3 (09:33→20:00)
[2020-03-28] MEDS: Fluticasone Propionate Nasal Spray 9.9 ML BOTTLE NASBOTH SCH ×3 (04:49→19:22)
[2020-03-28] MEDS: Cyanocobalamin (Vitamin B12) 250 MCG Tab PO SCH (09:03)
[2020-03-28] MEDS: Multivitamins with Iron/Calcium/Folic Acid/Minerals Tab PO SCH (09:03)
[2020-03-28] MEDS: Ascorbic Acid 500 MG Tab PO SCH (09:03)
[2020-03-28] MEDS: Cholecalciferol (Vitamin D3) 25 MCG Tab PO SCH (09:03)
[2020-03-28] MEDS: Zinc Sulfate 220 MG (50mg elemental Zinc) Cap PO SCH (09:03)
[2020-03-28] MEDS: BIOFREEZE TOP SCH ×3 (09:04→19:19)
[2020-03-28] MEDS: Lactobacillus Rhamnosus GG (Probiotic) Cap PO SCH ×2 (09:04→19:20)
[2020-03-28] MEDS: Acetaminophen 325 MG Tab PO SCH ×2 (09:04→19:20)
[2020-03-28] MEDS: BACLOFEN 10 MG PO SCH ×3 (09:05→19:21)
[2020-03-29] MEDS: Fluticasone Propionate Nasal Spray 9.9 ML BOTTLE NASBOTH SCH ×2 (08:57→19:34)
[2020-03-29] MEDS: BACLOFEN 10 MG PO SCH ×3 (08:57→19:27)
[2020-03-29] MEDS: Multivitamins with Iron/Calcium/Folic Acid/Minerals Tab PO SCH (08:57)
[2020-03-29] MEDS: Cholecalciferol (Vitamin D3) 25 MCG Tab PO SCH (08:57)
[2020-03-29] MEDS: BIOFREEZE TOP SCH ×3 (08:58→19:30)
[2020-03-29] MEDS: Zinc Sulfate 220 MG (50mg elemental Zinc) Cap PO SCH (08:58)
[2020-03-29] MEDS: Cyanocobalamin (Vitamin B12) 250 MCG Tab PO SCH (08:58)
[2020-03-29] MEDS: Acetaminophen 325 MG Tab PO SCH ×2 (08:58→19:28)
[2020-03-29] MEDS: Ascorbic Acid 500 MG Tab PO SCH (08:58)
[2020-03-29] MEDS: Lactobacillus Rhamnosus GG (Probiotic) Cap PO SCH ×2 (08:58→19:29)
[2020-03-30] MEDS: Acetaminophen 325 MG Tab PO SCH ×2 (08:53→19:34)
[2020-03-30] MEDS: Zinc Sulfate 220 MG (50mg elemental Zinc) Cap PO SCH (08:53)
[2020-03-30] MEDS: Lactobacillus Rhamnosus GG (Probiotic) Cap PO SCH ×2 (08:53→19:33)
[2020-03-30] MEDS: Cholecalciferol (Vitamin D3) 25 MCG Tab PO SCH (08:53)
[2020-03-30] MEDS: Ascorbic Acid 500 MG Tab PO SCH (08:54)
[2020-03-30] MEDS: Multivitamins with Iron/Calcium/Folic Acid/Minerals Tab PO SCH (08:54)
[2020-03-30] MEDS: Cyanocobalamin (Vitamin B12) 250 MCG Tab PO SCH (08:54)
[2020-03-30] MEDS: BACLOFEN 10 MG PO SCH ×3 (08:55→19:33)
[2020-03-30] MEDS: Fluticasone Propionate Nasal Spray 9.9 ML BOTTLE NASBOTH SCH ×2 (08:55→19:33)
[2020-03-30] MEDS: BIOFREEZE TOP SCH ×3 (08:56→19:35)
[2020-03-31] MEDS: Fluticasone Propionate Nasal Spray 9.9 ML BOTTLE NASBOTH SCH ×2 (07:46→19:33)
[2020-03-31] MEDS: BACLOFEN 10 MG PO SCH ×3 (07:47→19:34)
[2020-03-31] MEDS: BIOFREEZE TOP SCH ×3 (07:47→19:35)
[2020-03-31] MEDS: Zinc Sulfate 220 MG (50mg elemental Zinc) Cap PO SCH (07:48)
[2020-03-31] MEDS: Multivitamins with Iron/Calcium/Folic Acid/Minerals Tab PO SCH (07:48)
[2020-03-31] MEDS: Lactobacillus Rhamnosus GG (Probiotic) Cap PO SCH ×2 (07:48→19:34)
[2020-03-31] MEDS: Acetaminophen 325 MG Tab PO SCH ×2 (07:53→19:34)
[2020-03-31] MEDS: Ascorbic Acid 500 MG Tab PO SCH (07:54)
[2020-03-31] MEDS: Cyanocobalamin (Vitamin B12) 250 MCG Tab PO SCH (07:54)
[2020-03-31] MEDS: Cholecalciferol (Vitamin D3) 25 MCG Tab PO SCH (07:54)
[2020-04-01] MEDS: BACLOFEN 10 MG PO SCH ×3 (07:33→19:42)
[2020-04-01] MEDS: Fluticasone Propionate Nasal Spray 9.9 ML BOTTLE NASBOTH SCH ×2 (07:33→19:42)
[2020-04-01] MEDS: Lactobacillus Rhamnosus GG (Probiotic) Cap PO SCH ×2 (07:34→19:42)
[2020-04-01] MEDS: Cholecalciferol (Vitamin D3) 25 MCG Tab PO SCH (07:34)
[2020-04-01] MEDS: Zinc Sulfate 220 MG (50mg elemental Zinc) Cap PO SCH (07:34)
[2020-04-01] MEDS: Multivitamins with Iron/Calcium/Folic Acid/Minerals Tab PO SCH (07:34)
[2020-04-01] MEDS: BIOFREEZE TOP SCH ×3 (07:34→19:44)
[2020-04-01] MEDS: Acetaminophen 325 MG Tab PO SCH ×2 (07:34→19:43)
[2020-04-01] MEDS: Cyanocobalamin (Vitamin B12) 250 MCG Tab PO SCH (07:34)
[2020-04-01] MEDS: Ascorbic Acid 500 MG Tab PO SCH (07:35)
[2020-04-02] MEDS: Ascorbic Acid 500 MG Tab PO SCH (07:46)
[2020-04-02] MEDS: Cholecalciferol (Vitamin D3) 25 MCG Tab PO SCH (07:46)
[2020-04-02] MEDS: BACLOFEN 10 MG PO SCH ×3 (07:46→19:30)
[2020-04-02] MEDS: Fluticasone Propionate Nasal Spray 9.9 ML BOTTLE NASBOTH SCH ×2 (07:46→19:31)
[2020-04-02] MEDS: Cyanocobalamin (Vitamin B12) 250 MCG Tab PO SCH (07:46)
[2020-04-02] MEDS: Lactobacillus Rhamnosus GG (Probiotic) Cap PO SCH ×2 (07:46→19:32)
[2020-04-02] MEDS: Acetaminophen 325 MG Tab PO SCH ×2 (07:46→19:31)
[2020-04-02] MEDS: Multivitamins with Iron/Calcium/Folic Acid/Minerals Tab PO SCH (07:47)
[2020-04-02] MEDS: BIOFREEZE TOP SCH ×3 (07:47→19:37)
[2020-04-02] MEDS: Zinc Sulfate 220 MG (50mg elemental Zinc) Cap PO SCH (07:47)
[2020-04-03] MEDS: Fluticasone Propionate Nasal Spray 9.9 ML BOTTLE NASBOTH SCH ×2 (07:42→19:51)
[2020-04-03] MEDS: BIOFREEZE TOP SCH ×3 (07:43→19:52)
[2020-04-03] MEDS: BACLOFEN 10 MG PO SCH ×3 (07:43→19:52)
[2020-04-03] MEDS: Cyanocobalamin (Vitamin B12) 250 MCG Tab PO SCH (07:44)
[2020-04-03] MEDS: Zinc Sulfate 220 MG (50mg elemental Zinc) Cap PO SCH (07:44)
[2020-04-03] MEDS: Lactobacillus Rhamnosus GG (Probiotic) Cap PO SCH ×2 (07:44→19:50)
[2020-04-03] MEDS: Acetaminophen 325 MG Tab PO SCH ×2 (07:44→19:51)
[2020-04-03] MEDS: Ascorbic Acid 500 MG Tab PO SCH (07:44)
[2020-04-03] MEDS: Cholecalciferol (Vitamin D3) 25 MCG Tab PO SCH (07:44)
[2020-04-03] MEDS: Multivitamins with Iron/Calcium/Folic Acid/Minerals Tab PO SCH (07:44)
[2020-04-04] MEDS: BACLOFEN 10 MG PO SCH ×2 (07:34→11:24)
[2020-04-04] MEDS: Fluticasone Propionate Nasal Spray 9.9 ML BOTTLE NASBOTH SCH ×2 (07:34→19:33)
[2020-04-04] MEDS: Acetaminophen 325 MG Tab PO SCH ×2 (07:35→19:34)
[2020-04-04] MEDS: Zinc Sulfate 220 MG (50mg elemental Zinc) Cap PO SCH (07:35)
[2020-04-04] MEDS: Lactobacillus Rhamnosus GG (Probiotic) Cap PO SCH ×2 (07:35→19:34)
[2020-04-04] MEDS: Cyanocobalamin (Vitamin B12) 250 MCG Tab PO SCH (07:35)
[2020-04-04] MEDS: Multivitamins with Iron/Calcium/Folic Acid/Minerals Tab PO SCH (07:35)
[2020-04-04] MEDS: Cholecalciferol (Vitamin D3) 25 MCG Tab PO SCH (07:35)
[2020-04-04] MEDS: Ascorbic Acid 500 MG Tab PO SCH (07:35)
[2020-04-04] MEDS: BIOFREEZE TOP SCH ×3 (07:36→19:33)
[2020-04-05] MEDS: BACLOFEN 10 MG PO SCH ×4 (07:35→19:27)
[2020-04-05] MEDS: Fluticasone Propionate Nasal Spray 9.9 ML BOTTLE NASBOTH SCH ×2 (07:35→19:27)
[2020-04-05] MEDS: Ascorbic Acid 500 MG Tab PO SCH (07:36)
[2020-04-05] MEDS: Lactobacillus Rhamnosus GG (Probiotic) Cap PO SCH ×2 (07:36→19:27)
[2020-04-05] MEDS: Cyanocobalamin (Vitamin B12) 250 MCG Tab PO SCH (07:36)
[2020-04-05] MEDS: BIOFREEZE TOP SCH ×3 (07:36→19:27)
[2020-04-05] MEDS: Multivitamins with Iron/Calcium/Folic Acid/Minerals Tab PO SCH (07:36)
[2020-04-05] MEDS: Acetaminophen 325 MG Tab PO SCH ×2 (07:36→19:28)
[2020-04-05] MEDS: Cholecalciferol (Vitamin D3) 25 MCG Tab PO SCH (07:36)
[2020-04-05] MEDS: Zinc Sulfate 220 MG (50mg elemental Zinc) Cap PO SCH (07:36)
[2020-04-06] MEDS: Fluticasone Propionate Nasal Spray 9.9 ML BOTTLE NASBOTH SCH ×2 (07:53→19:23)
[2020-04-06] MEDS: Lactobacillus Rhamnosus GG (Probiotic) Cap PO SCH ×2 (07:53→19:23)
[2020-04-06] MEDS: BIOFREEZE TOP SCH ×3 (07:54→19:24)
[2020-04-06] MEDS: BACLOFEN 10 MG PO SCH ×3 (07:54→19:23)
[2020-04-06] MEDS: Multivitamins with Iron/Calcium/Folic Acid/Minerals Tab PO SCH (07:55)
[2020-04-06] MEDS: Acetaminophen 325 MG Tab PO SCH ×2 (07:57→19:23)
[2020-04-06] MEDS: Cholecalciferol (Vitamin D3) 25 MCG Tab PO SCH (07:58)
[2020-04-06] MEDS: Ascorbic Acid 500 MG Tab PO SCH (07:58)
[2020-04-06] MEDS: Zinc Sulfate 220 MG (50mg elemental Zinc) Cap PO SCH (07:58)
[2020-04-06] MEDS: Cyanocobalamin (Vitamin B12) 250 MCG Tab PO SCH (07:58)
[2020-04-07] MEDS: BACLOFEN 10 MG PO SCH ×3 (08:17→19:53)
[2020-04-07] MEDS: Fluticasone Propionate Nasal Spray 9.9 ML BOTTLE NASBOTH SCH ×2 (08:17→19:53)
[2020-04-07] MEDS: Cholecalciferol (Vitamin D3) 25 MCG Tab PO SCH (08:18)
[2020-04-07] MEDS: Multivitamins with Iron/Calcium/Folic Acid/Minerals Tab PO SCH (08:18)
[2020-04-07] MEDS: Ascorbic Acid 500 MG Tab PO SCH (08:18)
[2020-04-07] MEDS: Lactobacillus Rhamnosus GG (Probiotic) Cap PO SCH ×2 (08:18→19:53)
[2020-04-07] MEDS: BIOFREEZE TOP SCH ×3 (08:19→19:54)
[2020-04-07] MEDS: Cyanocobalamin (Vitamin B12) 250 MCG Tab PO SCH (08:19)
[2020-04-07] MEDS: Zinc Sulfate 220 MG (50mg elemental Zinc) Cap PO SCH (08:19)
[2020-04-07] MEDS: Acetaminophen 325 MG Tab PO SCH ×2 (08:20→19:54)
[2020-04-08] MEDS: Fluticasone Propionate Nasal Spray 9.9 ML BOTTLE NASBOTH SCH ×2 (07:32→19:19)
[2020-04-08] MEDS: BACLOFEN 10 MG PO SCH ×3 (07:32→19:19)
[2020-04-08] MEDS: BIOFREEZE TOP SCH ×3 (07:33→19:21)
[2020-04-08] MEDS: Zinc Sulfate 220 MG (50mg elemental Zinc) Cap PO SCH (07:33)
[2020-04-08] MEDS: Cholecalciferol (Vitamin D3) 25 MCG Tab PO SCH (07:33)
[2020-04-08] MEDS: Cyanocobalamin (Vitamin B12) 250 MCG Tab PO SCH (07:33)
[2020-04-08] MEDS: Lactobacillus Rhamnosus GG (Probiotic) Cap PO SCH ×2 (07:33→19:19)
[2020-04-08] MEDS: Acetaminophen 325 MG Tab PO SCH ×2 (07:34→19:19)
[2020-04-08] MEDS: Ascorbic Acid 500 MG Tab PO SCH (07:34)
[2020-04-08] MEDS: Multivitamins with Iron/Calcium/Folic Acid/Minerals Tab PO SCH (07:34)
[2020-04-09] MEDS: Zinc Sulfate 220 MG (50mg elemental Zinc) Cap PO SCH (07:58)
[2020-04-09] MEDS: Cyanocobalamin (Vitamin B12) 250 MCG Tab PO SCH (07:58)
[2020-04-09] MEDS: Ascorbic Acid 500 MG Tab PO SCH (07:58)
[2020-04-09] MEDS: Acetaminophen 325 MG Tab PO SCH ×2 (07:58→19:10)
[2020-04-09] MEDS: Lactobacillus Rhamnosus GG (Probiotic) Cap PO SCH ×2 (07:58→19:10)
[2020-04-09] MEDS: Multivitamins with Iron/Calcium/Folic Acid/Minerals Tab PO SCH (07:58)
[2020-04-09] MEDS: Cholecalciferol (Vitamin D3) 25 MCG Tab PO SCH (07:59)
[2020-04-09] MEDS: Fluticasone Propionate Nasal Spray 9.9 ML BOTTLE NASBOTH SCH ×2 (07:59→19:09)
[2020-04-09] MEDS: BIOFREEZE TOP SCH ×3 (07:59→19:11)
[2020-04-09] MEDS: BACLOFEN 10 MG PO SCH ×3 (08:00→19:10)
[2020-04-10] MEDS: BIOFREEZE TOP SCH ×3 (09:19→19:42)
[2020-04-10] MEDS: BACLOFEN 10 MG PO SCH ×3 (09:19→19:42)
[2020-04-10] MEDS: Zinc Sulfate 220 MG (50mg elemental Zinc) Cap PO SCH (09:19)
[2020-04-10] MEDS: Fluticasone Propionate Nasal Spray 9.9 ML BOTTLE NASBOTH SCH ×2 (09:19→19:43)
[2020-04-10] MEDS: Multivitamins with Iron/Calcium/Folic Acid/Minerals Tab PO SCH (09:20)
[2020-04-10] MEDS: Acetaminophen 325 MG Tab PO SCH ×2 (09:20→19:43)
[2020-04-10] MEDS: Cholecalciferol (Vitamin D3) 25 MCG Tab PO SCH (09:22)
[2020-04-10] MEDS: Lactobacillus Rhamnosus GG (Probiotic) Cap PO SCH ×2 (09:22→19:44)
[2020-04-10] MEDS: Ascorbic Acid 500 MG Tab PO SCH (09:22)
[2020-04-10] MEDS: Cyanocobalamin (Vitamin B12) 250 MCG Tab PO SCH (09:22)
[2020-04-11] MEDS: Zinc Sulfate 220 MG (50mg elemental Zinc) Cap PO SCH (08:53)
[2020-04-11] MEDS: Cyanocobalamin (Vitamin B12) 250 MCG Tab PO SCH (08:53)
[2020-04-11] MEDS: Lactobacillus Rhamnosus GG (Probiotic) Cap PO SCH ×2 (08:53→19:40)
[2020-04-11] MEDS: Multivitamins with Iron/Calcium/Folic Acid/Minerals Tab PO SCH (08:53)
[2020-04-11] MEDS: BACLOFEN 10 MG PO SCH ×3 (08:53→19:40)
[2020-04-11] MEDS: Ascorbic Acid 500 MG Tab PO SCH (08:54)
[2020-04-11] MEDS: Cholecalciferol (Vitamin D3) 25 MCG Tab PO SCH (08:54)
[2020-04-11] MEDS: Fluticasone Propionate Nasal Spray 9.9 ML BOTTLE NASBOTH SCH ×2 (08:56→19:40)
[2020-04-11] MEDS: Acetaminophen 325 MG Tab PO SCH ×2 (08:56→19:41)
[2020-04-11] MEDS: BIOFREEZE TOP SCH ×3 (08:58→19:42)
[2020-04-12] MEDS: Ascorbic Acid 500 MG Tab PO SCH (09:24)
[2020-04-12] MEDS: Multivitamins with Iron/Calcium/Folic Acid/Minerals Tab PO SCH (09:24)
[2020-04-12] MEDS: Cholecalciferol (Vitamin D3) 25 MCG Tab PO SCH (09:24)
[2020-04-12] MEDS: Cyanocobalamin (Vitamin B12) 250 MCG Tab PO SCH (09:25)
[2020-04-12] MEDS: Acetaminophen 325 MG Tab PO SCH ×2 (09:25→19:58)
[2020-04-12] MEDS: Lactobacillus Rhamnosus GG (Probiotic) Cap PO SCH ×2 (09:25→19:57)
[2020-04-12] MEDS: Zinc Sulfate 220 MG (50mg elemental Zinc) Cap PO SCH (09:25)
[2020-04-12] MEDS: Fluticasone Propionate Nasal Spray 9.9 ML BOTTLE NASBOTH SCH ×2 (09:26→19:56)
[2020-04-12] MEDS: BACLOFEN 10 MG PO SCH ×3 (09:27→19:57)
[2020-04-12] MEDS: BIOFREEZE TOP SCH ×3 (09:27→19:58)
[2020-04-13] MEDS: Lactobacillus Rhamnosus GG (Probiotic) Cap PO SCH ×2 (09:16→19:49)
[2020-04-13] MEDS: Cholecalciferol (Vitamin D3) 25 MCG Tab PO SCH (09:16)
[2020-04-13] MEDS: Acetaminophen 325 MG Tab PO SCH ×2 (09:17→19:49)
[2020-04-13] MEDS: Zinc Sulfate 220 MG (50mg elemental Zinc) Cap PO SCH (09:17)
[2020-04-13] MEDS: Multivitamins with Iron/Calcium/Folic Acid/Minerals Tab PO SCH (09:17)
[2020-04-13] MEDS: Ascorbic Acid 500 MG Tab PO SCH (09:17)
[2020-04-13] MEDS: Cyanocobalamin (Vitamin B12) 250 MCG Tab PO SCH (09:17)
[2020-04-13] MEDS: Fluticasone Propionate Nasal Spray 9.9 ML BOTTLE NASBOTH SCH ×2 (09:18→19:50)
[2020-04-13] MEDS: BACLOFEN 10 MG PO SCH ×3 (09:18→19:50)
[2020-04-13] MEDS: BIOFREEZE TOP SCH ×3 (09:18→19:51)
[2020-04-14] MEDS: Fluticasone Propionate Nasal Spray 9.9 ML BOTTLE NASBOTH SCH ×2 (08:01→19:51)
[2020-04-14] MEDS: BACLOFEN 10 MG PO SCH ×3 (08:01→19:51)
[2020-04-14] MEDS: Ascorbic Acid 500 MG Tab PO SCH (08:02)
[2020-04-14] MEDS: Acetaminophen 325 MG Tab PO SCH ×2 (08:03→19:51)
[2020-04-14] MEDS: Lactobacillus Rhamnosus GG (Probiotic) Cap PO SCH ×2 (08:04→19:51)
[2020-04-14] MEDS: Multivitamins with Iron/Calcium/Folic Acid/Minerals Tab PO SCH (08:04)
[2020-04-14] MEDS: Cyanocobalamin (Vitamin B12) 250 MCG Tab PO SCH (08:04)
[2020-04-14] MEDS: Cholecalciferol (Vitamin D3) 25 MCG Tab PO SCH (08:04)
[2020-04-14] MEDS: Zinc Sulfate 220 MG (50mg elemental Zinc) Cap PO SCH (08:04)
[2020-04-14] MEDS: BIOFREEZE TOP SCH ×3 (08:05→19:52)
--- NOTE | 2020-04-14 12:17 | PCM.SN.2 ---
- Free Text/Narrative Note: Patient with leakage of urine from the penis despite a well functioning suprapubic cath. Effie to be related to bladder spasms. Will try oxybutynin to see if this is helpful. Patient agreeable.
[2020-04-14] MEDS: Oxybutynin 5 MG Tab.ER PO SCH (17:09)
[2020-04-15] MEDS: Fluticasone Propionate Nasal Spray 9.9 ML BOTTLE NASBOTH SCH ×2 (10:36→20:10)
[2020-04-15] MEDS: Cholecalciferol (Vitamin D3) 25 MCG Tab PO SCH (10:36)
[2020-04-15] MEDS: Ascorbic Acid 500 MG Tab PO SCH (10:37)
[2020-04-15] MEDS: Cyanocobalamin (Vitamin B12) 250 MCG Tab PO SCH (10:37)
[2020-04-15] MEDS: Multivitamins with Iron/Calcium/Folic Acid/Minerals Tab PO SCH (10:37)
[2020-04-15] MEDS: Lactobacillus Rhamnosus GG (Probiotic) Cap PO SCH ×2 (10:37→20:09)
[2020-04-15] MEDS: Acetaminophen 325 MG Tab PO SCH ×2 (10:38→20:09)
[2020-04-15] MEDS: Zinc Sulfate 220 MG (50mg elemental Zinc) Cap PO SCH (10:38)
[2020-04-15] MEDS: Oxybutynin 5 MG Tab.ER PO SCH (10:39)
[2020-04-15] MEDS: BACLOFEN 10 MG PO SCH ×3 (10:39→20:10)
[2020-04-15] MEDS: BIOFREEZE TOP SCH ×3 (10:39→20:10)
[2020-04-16] MEDS: Oxybutynin 5 MG Tab.ER PO SCH ×2 (05:49→07:06)
[2020-04-16] MEDS: Acetaminophen 325 MG Tab PO SCH ×3 (05:50→20:56)
[2020-04-16] MEDS: Lactobacillus Rhamnosus GG (Probiotic) Cap PO SCH ×2 (11:49→20:53)
[2020-04-16] MEDS: BACLOFEN 10 MG PO SCH ×3 (11:49→20:53)
[2020-04-16] MEDS: BIOFREEZE TOP SCH ×3 (11:49→20:55)
[2020-04-16] MEDS: Fluticasone Propionate Nasal Spray 9.9 ML BOTTLE NASBOTH SCH ×2 (11:49→20:54)
[2020-04-16] MEDS: Cyanocobalamin (Vitamin B12) 250 MCG Tab PO SCH (11:50)
[2020-04-16] MEDS: Multivitamins with Iron/Calcium/Folic Acid/Minerals Tab PO SCH (11:50)
[2020-04-16] MEDS: Ascorbic Acid 500 MG Tab PO SCH (11:50)
[2020-04-16] MEDS: Cholecalciferol (Vitamin D3) 25 MCG Tab PO SCH (11:51)
[2020-04-16] MEDS: Zinc Sulfate 220 MG (50mg elemental Zinc) Cap PO SCH (11:51)
[2020-04-17] MEDS: Oxybutynin 5 MG Tab.ER PO SCH (07:38)
[2020-04-17] MEDS: Fluticasone Propionate Nasal Spray 9.9 ML BOTTLE NASBOTH SCH ×2 (07:38→19:47)
[2020-04-17] MEDS: BACLOFEN 10 MG PO SCH ×3 (07:38→19:46)
[2020-04-17] MEDS: Multivitamins with Iron/Calcium/Folic Acid/Minerals Tab PO SCH (07:39)
[2020-04-17] MEDS: Cholecalciferol (Vitamin D3) 25 MCG Tab PO SCH (07:39)
[2020-04-17] MEDS: BIOFREEZE TOP SCH ×3 (07:39→19:48)
[2020-04-17] MEDS: Acetaminophen 325 MG Tab PO SCH ×2 (07:39→19:47)
[2020-04-17] MEDS: Lactobacillus Rhamnosus GG (Probiotic) Cap PO SCH ×2 (07:39→19:47)
[2020-04-17] MEDS: Cyanocobalamin (Vitamin B12) 250 MCG Tab PO SCH (07:39)
[2020-04-17] MEDS: Zinc Sulfate 220 MG (50mg elemental Zinc) Cap PO SCH (07:39)
[2020-04-17] MEDS: Ascorbic Acid 500 MG Tab PO SCH (07:39)
[2020-04-18] MEDS: BACLOFEN 10 MG PO SCH ×3 (07:37→19:47)
[2020-04-18] MEDS: BIOFREEZE TOP SCH ×3 (07:37→19:48)
[2020-04-18] MEDS: Fluticasone Propionate Nasal Spray 9.9 ML BOTTLE NASBOTH SCH ×2 (07:37→19:48)
[2020-04-18] MEDS: Multivitamins with Iron/Calcium/Folic Acid/Minerals Tab PO SCH (07:38)
[2020-04-18] MEDS: Ascorbic Acid 500 MG Tab PO SCH (07:38)
[2020-04-18] MEDS: Zinc Sulfate 220 MG (50mg elemental Zinc) Cap PO SCH (07:38)
[2020-04-18] MEDS: Cyanocobalamin (Vitamin B12) 250 MCG Tab PO SCH (07:38)
[2020-04-18] MEDS: Cholecalciferol (Vitamin D3) 25 MCG Tab PO SCH (07:38)
[2020-04-18] MEDS: Lactobacillus Rhamnosus GG (Probiotic) Cap PO SCH ×2 (07:38→19:47)
[2020-04-18] MEDS: Oxybutynin 5 MG Tab.ER PO SCH (07:38)
[2020-04-18] MEDS: Acetaminophen 325 MG Tab PO SCH ×2 (07:38→19:47)
[2020-04-19] MEDS: BACLOFEN 10 MG PO SCH ×3 (08:00→19:53)
[2020-04-19] MEDS: Oxybutynin 5 MG Tab.ER PO SCH (08:00)
[2020-04-19] MEDS: Cholecalciferol (Vitamin D3) 25 MCG Tab PO SCH (08:01)
[2020-04-19] MEDS: BIOFREEZE TOP SCH ×3 (08:01→19:54)
[2020-04-19] MEDS: Lactobacillus Rhamnosus GG (Probiotic) Cap PO SCH ×2 (08:02→19:53)
[2020-04-19] MEDS: Cyanocobalamin (Vitamin B12) 250 MCG Tab PO SCH (08:02)
[2020-04-19] MEDS: Multivitamins with Iron/Calcium/Folic Acid/Minerals Tab PO SCH (08:02)
[2020-04-19] MEDS: Ascorbic Acid 500 MG Tab PO SCH (08:02)
[2020-04-19] MEDS: Zinc Sulfate 220 MG (50mg elemental Zinc) Cap PO SCH (08:02)
[2020-04-19] MEDS: Acetaminophen 325 MG Tab PO SCH ×2 (08:02→19:54)
[2020-04-19] MEDS: Fluticasone Propionate Nasal Spray 9.9 ML BOTTLE NASBOTH SCH ×2 (08:07→19:53)
[2020-04-20] MEDS: Fluticasone Propionate Nasal Spray 9.9 ML BOTTLE NASBOTH SCH ×2 (08:18→19:47)
[2020-04-20] MEDS: Oxybutynin 5 MG Tab.ER PO SCH (08:19)
[2020-04-20] MEDS: Cyanocobalamin (Vitamin B12) 250 MCG Tab PO SCH (08:19)
[2020-04-20] MEDS: Zinc Sulfate 220 MG (50mg elemental Zinc) Cap PO SCH (08:19)
[2020-04-20] MEDS: Lactobacillus Rhamnosus GG (Probiotic) Cap PO SCH ×2 (08:19→19:46)
[2020-04-20] MEDS: BACLOFEN 10 MG PO SCH ×3 (08:19→19:46)
[2020-04-20] MEDS: Ascorbic Acid 500 MG Tab PO SCH (08:20)
[2020-04-20] MEDS: Cholecalciferol (Vitamin D3) 25 MCG Tab PO SCH (08:20)
[2020-04-20] MEDS: Multivitamins with Iron/Calcium/Folic Acid/Minerals Tab PO SCH (08:20)
[2020-04-20] MEDS: Acetaminophen 325 MG Tab PO SCH ×2 (08:20→19:46)
[2020-04-20] MEDS: BIOFREEZE TOP SCH ×3 (08:21→19:48)
[2020-04-21] MEDS: Oxybutynin 5 MG Tab.ER PO SCH (08:30)
[2020-04-21] MEDS: Lactobacillus Rhamnosus GG (Probiotic) Cap PO SCH ×2 (08:30→20:04)
[2020-04-21] MEDS: BACLOFEN 10 MG PO SCH ×3 (08:30→20:04)
[2020-04-21] MEDS: Cholecalciferol (Vitamin D3) 25 MCG Tab PO SCH (08:30)
[2020-04-21] MEDS: Zinc Sulfate 220 MG (50mg elemental Zinc) Cap PO SCH (08:30)
[2020-04-21] MEDS: Acetaminophen 325 MG Tab PO SCH ×2 (08:31→20:05)
[2020-04-21] MEDS: BIOFREEZE TOP SCH ×3 (08:31→20:05)
[2020-04-21] MEDS: Cyanocobalamin (Vitamin B12) 250 MCG Tab PO SCH (08:31)
[2020-04-21] MEDS: Multivitamins with Iron/Calcium/Folic Acid/Minerals Tab PO SCH (08:32)
[2020-04-21] MEDS: Fluticasone Propionate Nasal Spray 9.9 ML BOTTLE NASBOTH SCH ×2 (08:32→20:04)
[2020-04-21] MEDS: Ascorbic Acid 500 MG Tab PO SCH (08:33)
[2020-04-22] MEDS: Fluticasone Propionate Nasal Spray 9.9 ML BOTTLE NASBOTH SCH ×2 (08:48→19:33)
[2020-04-22] MEDS: Acetaminophen 325 MG Tab PO SCH ×2 (08:49→19:34)
[2020-04-22] MEDS: BACLOFEN 10 MG PO SCH ×3 (08:49→19:35)
[2020-04-22] MEDS: Oxybutynin 5 MG Tab.ER PO SCH (08:49)
[2020-04-22] MEDS: Cholecalciferol (Vitamin D3) 25 MCG Tab PO SCH (08:51)
[2020-04-22] MEDS: Lactobacillus Rhamnosus GG (Probiotic) Cap PO SCH ×2 (08:52→19:34)
[2020-04-22] MEDS: Zinc Sulfate 220 MG (50mg elemental Zinc) Cap PO SCH (08:52)
[2020-04-22] MEDS: Multivitamins with Iron/Calcium/Folic Acid/Minerals Tab PO SCH (08:52)
[2020-04-22] MEDS: Cyanocobalamin (Vitamin B12) 250 MCG Tab PO SCH (08:52)
[2020-04-22] MEDS: Ascorbic Acid 500 MG Tab PO SCH (08:52)
[2020-04-22] MEDS: BIOFREEZE TOP SCH ×3 (08:52→19:36)
[2020-04-22] MEDS ORDERED: Oxybutynin 5 MG Tab.ER PO ONE (12:30)
[2020-04-23] MEDS: BACLOFEN 10 MG PO SCH ×3 (09:39→19:26)
[2020-04-23] MEDS: Acetaminophen 325 MG Tab PO SCH ×2 (09:39→19:26)
[2020-04-23] MEDS: Fluticasone Propionate Nasal Spray 9.9 ML BOTTLE NASBOTH SCH ×2 (09:39→19:29)
[2020-04-23] MEDS: Oxybutynin 5 MG Tab.ER PO SCH (09:39)
[2020-04-23] MEDS: Multivitamins with Iron/Calcium/Folic Acid/Minerals Tab PO SCH (09:40)
[2020-04-23] MEDS: Ascorbic Acid 500 MG Tab PO SCH (09:40)
[2020-04-23] MEDS: Cholecalciferol (Vitamin D3) 25 MCG Tab PO SCH (09:40)
[2020-04-23] MEDS: Cyanocobalamin (Vitamin B12) 250 MCG Tab PO SCH (09:40)
[2020-04-23] MEDS: Zinc Sulfate 220 MG (50mg elemental Zinc) Cap PO SCH (09:40)
[2020-04-23] MEDS: Lactobacillus Rhamnosus GG (Probiotic) Cap PO SCH ×2 (09:40→19:26)
[2020-04-23] MEDS: BIOFREEZE TOP SCH ×3 (09:43→19:30)
--- NOTE | 2020-04-23 19:46 | PCM.PN ---
- General Info Date of Service: 04/23/20 Subjective Update: 45 yo male seen today for swing bed follow-up. He states he is doing well. He has had some issues with urine leaking through his penis when he lays down even though his suprapubic catheter is otherwise working well. The oxybutynin had been working but his neurologist changed the dose to 10 mg once/day instead of 5 mg BID. He has had more trouble again but acknowledges that he may just need to adjust to this. His ostomy is working well. He has not had any abdominal pain. His right arm pain is minimal. His wound is healing nicely. They are working on finding an appropriate place of living for him to d/c to and he is in good spirits as a result. He denies any current concerns with his mood. He received his first dose of the COVID vaccine this week and has not had any untoward effects from this. - Review of Systems General: Reports: No Symptoms HEENT: Reports: No Symptoms Pulmonary: Reports: No Symptoms Cardiovascular: Reports: No Symptoms Gastrointestinal: Reports: No Symptoms Genitourinary: Reports: No Symptoms Musculoskeletal: Reports: No Symptoms Skin: Reports: No Symptoms Neurological: Reports: No Symptoms Psychiatric: Reports: No Symptoms - Patient Data Vitals - Most Recent: Last Vital Signs Temp 35.8 C L 04/23/20 06:00 Pulse 74 04/23/20 06:00 Resp 16 04/23/20 06:00 BP 131/79 04/23/20 06:00 Pulse Ox 98 04/23/20 06:00 Weight - Most Recent: 136.8 kg I&O - Last 24 Hours: Intake & Output 04/23/20 04/23/20 04/23/20 06:59 14:59 22:59 Intake Total 1999 480 Output Total 1450 1800 Balance -1450 1999 -1320 Med Orders - Current: Current Medications Acetaminophen (Tylenol) 650 mg PO BID [facility] Last Admin: 04/23/20 19:26 Dose: 650 mg Documented by: Acetaminophen (Tylenol) 650 mg PO Q6H PRN PRN Reason: Pain Last Admin: 03/19/20 06:34 Dose: 650 mg Documented by: Ascorbic Acid (Vitamin C) 500 mg PO DAILY [facility] Last Admin: 04/23/20 09:40 Dose: 500 mg Documented by: Baclofen (Lioresal) 5 mg PO TID [facility] Last Admin: 04/23/20 19:26 Dose: 5 mg Documented by: Cholecalciferol (Vitamin D3) 100 mcg PO DAILY [facility] Last Admin: 04/23/20 09:40 Dose: 100 mcg Documented by: Cyanocobalamin (Vitamin B12) 500 mcg PO DAILY [facility] Last Admin: 04/23/20 09:40 Dose: 500 mcg Documented by: Fluticasone Propionate (Fluticasone Propionate) 0.33 ml NASBOTH BID [facility] Last Admin: 04/23/20 19:29 Dose: 1 spray Documented by: Lactobacillus Rhamnosus (Culturelle) 1 cap PO BID@0800,2000 [facility] Last Admin: 04/23/20 19:26 Dose: 1 cap Documented by: Miconazole (Desenex 2%) 0 gm TOP BID PRN PRN Reason: Rash Last Admin: 12/20/19 20:53 Dose: 1 applic Documented by: Multivitamins/Minerals (Thera M Plus) 1 tab PO DAILY [facility] Last Admin: 04/23/20 09:40 Dose: 1 tab Documented by: Oxybutynin.Er 10mg ( (Own Supply)) 1 each PO DAILY [facility] Biofreeze Topical * (Pt Own Med*) 0 each TOP TID [facility] Last Admin: 04/23/20 19:30 Dose: Not Given Documented by: Oxybutynin Chloride (Oxybutynin Er) 10 mg PO DAILY [facility] Stop: 05/02/20 08:01 Last Admin: 04/23/20 09:39 Dose: 10 mg Documented by: Senna/Docusate Sodium (Senna Plus) 2 tab PO BEDTIME PRN PRN Reason: Constipation Last Admin: 04/19/20 08:02 Dose: 2 tab Documented by: Zinc Sulfate (Zincate) 220 mg PO DAILY [facility] Last Admin: 04/23/20 09:40 Dose: 220 mg Documented by: Discontinued Medications Alteplase, Recombinant (Cathflo Activase) 2 mg IVPUSH ONETIME ONE Stop: 10/23/19 12:45 Last Admin: 10/23/19 13:30 Dose: 2 mg Documented by: Baclofen (Lioresal) 5 mg PO TID [facility] Last Admin: 01/27/20 08:23 Dose: 5 mg Documented by: Baclofen (Lioresal) 5 mg PO TID [facility] Stop: 11/21/19 20:00 Last Admin: 11/21/19 19:52 Dose: 5 mg Documented by: Clindamycin HCl (Cleocin) 150 mg PO TID [facility] Stop: 12/28/19 20:01 Last Admin: 12/19/19 09:26 Dose: 150 mg Documented by: Clindamycin HCl (Cleocin) 150 mg PO TID [facility] Stop: 12/28/19 20:01 Last Admin: 12/28/19 21:15 Dose: Not Given Documented by: Clindamycin HCl (Cleocin) 150 mg PO ONETIME ONE Stop: 12/28/19 21:31 Last Admin: 12/28/19 21:34 Dose: 150 mg Documented by: Fluticasone Propionate (Fluticasone Propionate) 0 ml NASBOTH BID [facility] Last Admin: 01/24/20 09:13 Dose: 1 ml Documented by: Fluticasone Propionate (Flonase) 0 gm NASBOTH BID [facility] Stop: 11/21/19 20:01 Last Admin: 11/21/19 19:51 Dose: 1 spray Documented by: Fluticasone Propionate (Flonase) 0 gm NASBOTH BID [facility] Last Admin: 01/09/20 09:39 Dose: Not Given Documented by: Heparin Sodium (Porcine) (Heparin Lock Flush 100 Units/Ml) 300 unit FLUSH ASDIRECTED PRN PRN Reason: Keep Vein Open Last Admin: 11/27/19 06:45 Dose: 300 unit Documented by: Heparin Sodium (Porcine) (Heparin Lock Flush 100 Units/Ml) 300 unit FLUSH Q8H [facility] Stop: 11/25/19 23:59 Last Admin: 11/18/19 19:25 Dose: Not Given Documented by: Heparin Sodium (Porcine) (Heparin Lock Flush 100 Units/Ml) 300 unit FLUSH Q8H [facility] Stop: 11/25/19 23:59 Last Admin: 11/25/19 20:08 Dose: 300 unit Documented by: Piperacillin Sod/Tazobactam (Sod 4.5 gm/ Sodium Chloride) 100 mls @ 25 mls/hr IV Q8H [facility] Stop: 11/25/19 23:58 Last Admin: 11/18/19 09:46 Dose: Not Given Documented by: Piperacillin Sod/Tazobactam (Sod 4.5 gm/ Sodium Chloride) 100 mls @ 200 mls/hr IV ONETIME ONE Stop: 11/18/19 15:29 Last Admin: 11/18/19 15:07 Dose: 200 mls/hr Documented by: Piperacillin Sod/Tazobactam (Sod 4.5 gm/ Sodium Chloride) 100 mls @ 25 mls/hr IV Q8H [facility] Stop: 11/25/19 23:58 Last Admin: 11/25/19 23:20 Dose: 25 mls/hr Documented by: Lactobacillus Rhamnosus (Culturelle) 1 cap PO DAILY [facility] Last Admin: 12/20/19 09:12 Dose: 1 cap Documented by: Lactobacillus Rhamnosus (Culturelle) 1 cap PO BID@1000,2200 [facility] Stop: 01/11/20 22:01 Last Admin: 12/30/19 08:17 Dose: 1 cap Documented by: Clindamycin 300mg (Cap (Own Supply)) 1 each PO BID [facility] Stop: 03/22/20 08:01 Last Admin: 03/22/20 08:16 Dose: 1 each Documented by: Oxybutynin Chloride (Oxybutynin Er) 5 mg PO DAILY [facility] Last Admin: 04/22/20 08:49 Dose: 5 mg Documented by: Oxybutynin Chloride (Oxybutynin Er) 5 mg PO ONETIME ONE Stop: 04/22/20 12:31 Last Admin: 04/22/20 13:43 Dose: 5 mg Documented by: Sodium Bicarbonate (Sodium Bicarbonate 8.4%) Confirm Administered Dose 50 meq .ROUTE .STK-MED ONE Stop: 11/02/19 12:42 Last Admin: 11/02/19 13:28 Dose: Not Given Documented by: Sodium Chloride (Saline Flush) 10 ml IV ASDIRECTED PRN PRN Reason: Keep Vein Open Last Admin: 11/27/19 06:45 Dose: 10 ml Documented by: Zinc Gluconate (Zinc) 50 mg PO DAILY [facility] Last Admin: 03/19/20 11:20 Dose: Not Given Documented by: - Exam General: Alert, Oriented, Cooperative, No Acute Distress HEENT: Pupils Equal, Pupils Reactive, Mucous Membr. Moist/[place] Neck: Supple, Trachea Midline, No Thyromegaly. No: Lymphadenopathy Lungs: Clear to Auscultation, Normal Respiratory Effort Cardiovascular: Regular Rate, Regular Rhythm, No Murmurs GI/Abdominal Exam: Normal Bowel Sounds, Soft, Non-Tender, No Organomegaly, No Distention, No Mass Extremities: Non-Tender, No Pedal Edema, Normal Capillary Refill Peripheral Pulses: 2+: Radial (L), Radial (R) Skin: Warm, Dry Neurological: No New Focal Deficit Sepsis Event Note - Evaluation Sepsis Screening Result: No Definite Risk - Problem List & Annotations (1) Sacral decubitus ulcer SNOMED Code(s): 680277200 Code(s): L89.159 - PRESSURE ULCER OF SACRAL REGION, UNSPECIFIED STAGE Status: Acute Current Visit: No Qualifiers: Pressure injury stage: unspecified pressure injury stage Qualified Code(s): L89.159 - Pressure ulcer of sacral region, unspecified stage (2) Chronic sinusitis SNOMED Code(s): 12483044 Code(s): J32.9 - CHRONIC SINUSITIS, UNSPECIFIED Status: Chronic Current Visit: No (3) Constipation SNOMED Code(s): 09242606 Code(s): K59.00 - CONSTIPATION, UNSPECIFIED Status: Chronic Current Visit: No (4) Hypertension SNOMED Code(s): 29899671 Code(s): I10 - ESSENTIAL (PRIMARY) HYPERTENSION Status: Chronic Current Visit: No (5) Multiple sclerosis SNOMED Code(s): 45096406 Code(s): G35 - MULTIPLE SCLEROSIS Status: Chronic Current Visit: No (6) Neurogenic bladder SNOMED Code(s): 400935909 Code(s): N31.9 - NEUROMUSCULAR DYSFUNCTION OF BLADDER, UNSPECIFIED Status: Chronic Current Visit: No (7) Adjustment disorder SNOMED Code(s): 99639335 Code(s): F43.20 - ADJUSTMENT DISORDER, UNSPECIFIED Status: Acute Current Visit: No Qualifiers: Adjustment disorder type: with depressed mood Qualified Code(s): F43.21 - Adjustment disorder with depressed mood (8) Squamous cell carcinoma SNOMED Code(s): 873612331 Code(s): CBI5476 - Status: Acute Current Visit: Yes - Problem List Review Problem List Initiated/Reviewed/Updated: Yes - My Orders Last 24 Hours: My Active Orders 04/23/20 08:00 Oxybutynin [Oxybutynin ER] 10 mg PO DAILY 05/03/20 08:00 Oxybutynin.Er 10mg 1 each PO DAILY - Assessment Assessment:: 44 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 Wound is now basically healed. Having some trouble with urinary incontinence but is otherwise doing well. - Plan Plan:: #1 Sacral decubitus ulcer - Wound is now essentially healed. He has not had any osteomyelitis for quite some time. - Wound clinic follow-ups as scheduled. #2 Chronic sinusitis #3 Constipation #4 Hypertension #5 MS - Continue current medications. - He saw neurology in March and will follow-up again in May. #6 Neurogenic bladder - Suprapubic catheter is working well. - Will consider switching oxybutynin to 5 mg BID again if the 10 mg continues to not work as well. #7 Adjustment disorder - Mood remains good. - Will continue to monitor closely. #8 SCC - Has completed Mohs by dermatology. - Follow-up as recommended by dermatology. Patient is admitted to swing bed - wound is now resolved but is making steady progress. He will remain on swing bed until an appropriate alternative living environment is available for him. Case management is involved to assist with this. Code status is DNR/DNI - discussed on admission. No indication for VTE prophylaxis as he is at his usual functional baseline.
[2020-04-24] MEDS: Fluticasone Propionate Nasal Spray 9.9 ML BOTTLE NASBOTH SCH ×2 (07:27→19:27)
[2020-04-24] MEDS: BACLOFEN 10 MG PO SCH ×3 (07:27→19:26)
[2020-04-24] MEDS: Lactobacillus Rhamnosus GG (Probiotic) Cap PO SCH ×2 (07:28→19:26)
[2020-04-24] MEDS: Acetaminophen 325 MG Tab PO SCH ×2 (07:28→19:26)
[2020-04-24] MEDS: Ascorbic Acid 500 MG Tab PO SCH (07:28)
[2020-04-24] MEDS: Oxybutynin 5 MG Tab.ER PO SCH (07:28)
[2020-04-24] MEDS: Zinc Sulfate 220 MG (50mg elemental Zinc) Cap PO SCH (07:29)
[2020-04-24] MEDS: Cholecalciferol (Vitamin D3) 25 MCG Tab PO SCH (07:29)
[2020-04-24] MEDS: Cyanocobalamin (Vitamin B12) 250 MCG Tab PO SCH (07:29)
[2020-04-24] MEDS: BIOFREEZE TOP SCH ×3 (07:29→19:28)
[2020-04-24] MEDS: Multivitamins with Iron/Calcium/Folic Acid/Minerals Tab PO SCH (07:29)
[2020-04-25] MEDS: BACLOFEN 10 MG PO SCH ×3 (07:45→19:25)
[2020-04-25] MEDS: Oxybutynin 5 MG Tab.ER PO SCH (07:45)
[2020-04-25] MEDS: Acetaminophen 325 MG Tab PO SCH ×2 (07:46→19:27)
[2020-04-25] MEDS: Fluticasone Propionate Nasal Spray 9.9 ML BOTTLE NASBOTH SCH ×2 (07:46→19:27)
[2020-04-25] MEDS: Cholecalciferol (Vitamin D3) 25 MCG Tab PO SCH (07:46)
[2020-04-25] MEDS: Cyanocobalamin (Vitamin B12) 250 MCG Tab PO SCH (07:46)
[2020-04-25] MEDS: Lactobacillus Rhamnosus GG (Probiotic) Cap PO SCH ×2 (07:47→19:27)
[2020-04-25] MEDS: Ascorbic Acid 500 MG Tab PO SCH (07:47)
[2020-04-25] MEDS: Multivitamins with Iron/Calcium/Folic Acid/Minerals Tab PO SCH (07:47)
[2020-04-25] MEDS: BIOFREEZE TOP SCH ×3 (07:47→19:28)
[2020-04-25] MEDS: Zinc Sulfate 220 MG (50mg elemental Zinc) Cap PO SCH (07:47)
[2020-04-26] MEDS: BACLOFEN 10 MG PO SCH ×3 (08:32→19:24)
[2020-04-26] MEDS: Oxybutynin 5 MG Tab.ER PO SCH (08:32)
[2020-04-26] MEDS: Cholecalciferol (Vitamin D3) 25 MCG Tab PO SCH (08:33)
[2020-04-26] MEDS: Zinc Sulfate 220 MG (50mg elemental Zinc) Cap PO SCH (08:33)
[2020-04-26] MEDS: Acetaminophen 325 MG Tab PO SCH ×2 (08:33→19:24)
[2020-04-26] MEDS: Multivitamins with Iron/Calcium/Folic Acid/Minerals Tab PO SCH (08:33)
[2020-04-26] MEDS: BIOFREEZE TOP SCH ×3 (08:33→19:25)
[2020-04-26] MEDS: Cyanocobalamin (Vitamin B12) 250 MCG Tab PO SCH (08:33)
[2020-04-26] MEDS: Ascorbic Acid 500 MG Tab PO SCH (08:34)
[2020-04-26] MEDS: Lactobacillus Rhamnosus GG (Probiotic) Cap PO SCH ×2 (08:34→19:24)
[2020-04-26] MEDS: Fluticasone Propionate Nasal Spray 9.9 ML BOTTLE NASBOTH SCH ×2 (08:35→19:24)
[2020-04-27] MEDS: BIOFREEZE TOP SCH ×3 (10:25→20:11)
[2020-04-27] MEDS: BACLOFEN 10 MG PO SCH ×3 (10:25→20:11)
[2020-04-27] MEDS: Oxybutynin 5 MG Tab.ER PO SCH (10:25)
[2020-04-27] MEDS: Multivitamins with Iron/Calcium/Folic Acid/Minerals Tab PO SCH (10:26)
[2020-04-27] MEDS: Cholecalciferol (Vitamin D3) 25 MCG Tab PO SCH (10:26)
[2020-04-27] MEDS: Ascorbic Acid 500 MG Tab PO SCH (10:26)
[2020-04-27] MEDS: Lactobacillus Rhamnosus GG (Probiotic) Cap PO SCH ×2 (10:26→20:10)
[2020-04-27] MEDS: Fluticasone Propionate Nasal Spray 9.9 ML BOTTLE NASBOTH SCH ×2 (10:26→20:11)
[2020-04-27] MEDS: Zinc Sulfate 220 MG (50mg elemental Zinc) Cap PO SCH (10:26)
[2020-04-27] MEDS: Cyanocobalamin (Vitamin B12) 250 MCG Tab PO SCH (10:26)
[2020-04-27] MEDS: Acetaminophen 325 MG Tab PO SCH ×2 (10:27→20:10)
[2020-04-28] MEDS: Fluticasone Propionate Nasal Spray 9.9 ML BOTTLE NASBOTH SCH ×2 (08:30→19:51)
[2020-04-28] MEDS: Oxybutynin 5 MG Tab.ER PO SCH (08:30)
[2020-04-28] MEDS: Cholecalciferol (Vitamin D3) 25 MCG Tab PO SCH (08:31)
[2020-04-28] MEDS: Cyanocobalamin (Vitamin B12) 250 MCG Tab PO SCH (08:31)
[2020-04-28] MEDS: BACLOFEN 10 MG PO SCH ×3 (08:31→19:49)
[2020-04-28] MEDS: Ascorbic Acid 500 MG Tab PO SCH (08:32)
[2020-04-28] MEDS: Acetaminophen 325 MG Tab PO SCH ×2 (08:32→19:49)
[2020-04-28] MEDS: Lactobacillus Rhamnosus GG (Probiotic) Cap PO SCH ×2 (08:32→19:49)
[2020-04-28] MEDS: BIOFREEZE TOP SCH ×3 (08:32→19:50)
[2020-04-28] MEDS: Zinc Sulfate 220 MG (50mg elemental Zinc) Cap PO SCH (08:32)
[2020-04-28] MEDS: Multivitamins with Iron/Calcium/Folic Acid/Minerals Tab PO SCH (08:32)
[2020-04-29] MEDS: Cyanocobalamin (Vitamin B12) 250 MCG Tab PO SCH (07:42)
[2020-04-29] MEDS: Ascorbic Acid 500 MG Tab PO SCH (07:42)
[2020-04-29] MEDS: Cholecalciferol (Vitamin D3) 25 MCG Tab PO SCH (07:42)
[2020-04-29] MEDS: BIOFREEZE TOP SCH ×3 (07:43→19:51)
[2020-04-29] MEDS: BACLOFEN 10 MG PO SCH ×3 (07:43→19:49)
[2020-04-29] MEDS: Oxybutynin 5 MG Tab.ER PO SCH (07:43)
[2020-04-29] MEDS: Fluticasone Propionate Nasal Spray 9.9 ML BOTTLE NASBOTH SCH ×2 (07:43→19:50)
[2020-04-29] MEDS: Lactobacillus Rhamnosus GG (Probiotic) Cap PO SCH ×2 (07:43→19:49)
[2020-04-29] MEDS: Multivitamins with Iron/Calcium/Folic Acid/Minerals Tab PO SCH (07:43)
[2020-04-29] MEDS: Zinc Sulfate 220 MG (50mg elemental Zinc) Cap PO SCH (07:43)
[2020-04-29] MEDS: Acetaminophen 325 MG Tab PO SCH ×2 (07:44→19:51)
[2020-04-30] MEDS: Fluticasone Propionate Nasal Spray 9.9 ML BOTTLE NASBOTH SCH ×2 (07:42→20:25)
[2020-04-30] MEDS: BACLOFEN 10 MG PO SCH ×3 (07:42→20:24)
[2020-04-30] MEDS: Cyanocobalamin (Vitamin B12) 250 MCG Tab PO SCH (07:43)
[2020-04-30] MEDS: Multivitamins with Iron/Calcium/Folic Acid/Minerals Tab PO SCH (07:43)
[2020-04-30] MEDS: Zinc Sulfate 220 MG (50mg elemental Zinc) Cap PO SCH (07:43)
[2020-04-30] MEDS: Lactobacillus Rhamnosus GG (Probiotic) Cap PO SCH ×2 (07:43→20:24)
[2020-04-30] MEDS: Cholecalciferol (Vitamin D3) 25 MCG Tab PO SCH (07:43)
[2020-04-30] MEDS: Ascorbic Acid 500 MG Tab PO SCH (07:43)
[2020-04-30] MEDS: Oxybutynin 5 MG Tab.ER PO SCH (07:43)
[2020-04-30] MEDS: Acetaminophen 325 MG Tab PO SCH ×2 (07:44→20:24)
[2020-04-30] MEDS: BIOFREEZE TOP SCH ×3 (07:44→20:25)
[2020-05-01] MEDS: BIOFREEZE TOP SCH ×3 (09:10→20:27)
[2020-05-01] MEDS: BACLOFEN 10 MG PO SCH ×3 (09:10→20:26)
[2020-05-01] MEDS: Oxybutynin 5 MG Tab.ER PO SCH (09:10)
[2020-05-01] MEDS: Multivitamins with Iron/Calcium/Folic Acid/Minerals Tab PO SCH (09:10)
[2020-05-01] MEDS: Fluticasone Propionate Nasal Spray 9.9 ML BOTTLE NASBOTH SCH ×2 (09:10→20:25)
[2020-05-01] MEDS: Zinc Sulfate 220 MG (50mg elemental Zinc) Cap PO SCH (09:11)
[2020-05-01] MEDS: Acetaminophen 325 MG Tab PO SCH ×2 (09:11→20:27)
[2020-05-01] MEDS: Cholecalciferol (Vitamin D3) 25 MCG Tab PO SCH (09:12)
[2020-05-01] MEDS: Lactobacillus Rhamnosus GG (Probiotic) Cap PO SCH ×2 (09:12→20:26)
[2020-05-01] MEDS: Cyanocobalamin (Vitamin B12) 250 MCG Tab PO SCH (09:12)
[2020-05-01] MEDS: Ascorbic Acid 500 MG Tab PO SCH (09:12)
[2020-05-02] MEDS: Oxybutynin 5 MG Tab.ER PO SCH (09:08)
[2020-05-02] MEDS: BACLOFEN 10 MG PO SCH ×3 (09:08→19:47)
[2020-05-02] MEDS: Fluticasone Propionate Nasal Spray 9.9 ML BOTTLE NASBOTH SCH ×2 (09:08→19:49)
[2020-05-02] MEDS: Cyanocobalamin (Vitamin B12) 250 MCG Tab PO SCH (09:09)
[2020-05-02] MEDS: Lactobacillus Rhamnosus GG (Probiotic) Cap PO SCH ×2 (09:09→19:47)
[2020-05-02] MEDS: Zinc Sulfate 220 MG (50mg elemental Zinc) Cap PO SCH (09:10)
[2020-05-02] MEDS: Cholecalciferol (Vitamin D3) 25 MCG Tab PO SCH (09:10)
[2020-05-02] MEDS: Multivitamins with Iron/Calcium/Folic Acid/Minerals Tab PO SCH (09:11)
[2020-05-02] MEDS: Ascorbic Acid 500 MG Tab PO SCH (09:11)
[2020-05-02] MEDS: BIOFREEZE TOP SCH ×3 (09:11→19:48)
[2020-05-02] MEDS: Acetaminophen 325 MG Tab PO SCH ×2 (09:12→19:47)
--- NOTE | 2020-05-02 09:48 | PCM.SN.2 ---
- Free Text/Narrative Note: Contacted by nurse that the patient's ear was bothering him. Patient states he has had decreased hearing, mild discomfort, and a crackling sensation when he moves his jaw. Cerumen impaction noted in left ear canal. Order written for debrox.
[2020-05-02] MEDS: Carbamide Peroxide 6.5% Otic Soln 15 ML Bottle EARLF SCH ×2 (10:52→19:53)
[2020-05-03] MEDS: Carbamide Peroxide 6.5% Otic Soln 15 ML Bottle EARLF SCH ×2 (08:22→20:30)
[2020-05-03] MEDS: BACLOFEN 10 MG PO SCH ×3 (08:22→20:29)
[2020-05-03] MEDS: OXYBUTYNIN 10 MG PO SCH (08:22)
[2020-05-03] MEDS: Acetaminophen 325 MG Tab PO SCH ×2 (08:23→20:29)
[2020-05-03] MEDS: Cyanocobalamin (Vitamin B12) 250 MCG Tab PO SCH (08:23)
[2020-05-03] MEDS: Multivitamins with Iron/Calcium/Folic Acid/Minerals Tab PO SCH (08:23)
[2020-05-03] MEDS: Cholecalciferol (Vitamin D3) 25 MCG Tab PO SCH (08:23)
[2020-05-03] MEDS: Zinc Sulfate 220 MG (50mg elemental Zinc) Cap PO SCH (08:23)
[2020-05-03] MEDS: Ascorbic Acid 500 MG Tab PO SCH (08:23)
[2020-05-03] MEDS: Lactobacillus Rhamnosus GG (Probiotic) Cap PO SCH ×2 (08:23→20:29)
[2020-05-03] MEDS: Fluticasone Propionate Nasal Spray 9.9 ML BOTTLE NASBOTH SCH ×2 (08:24→20:29)
[2020-05-03] MEDS: BIOFREEZE TOP SCH ×3 (08:27→20:30)
[2020-05-04] MEDS: Carbamide Peroxide 6.5% Otic Soln 15 ML Bottle EARLF SCH ×2 (07:40→19:47)
[2020-05-04] MEDS: Fluticasone Propionate Nasal Spray 9.9 ML BOTTLE NASBOTH SCH ×2 (07:40→19:53)
[2020-05-04] MEDS: BACLOFEN 10 MG PO SCH ×3 (07:41→19:48)
[2020-05-04] MEDS: Cholecalciferol (Vitamin D3) 25 MCG Tab PO SCH (07:41)
[2020-05-04] MEDS: Acetaminophen 325 MG Tab PO SCH ×2 (07:41→19:48)
[2020-05-04] MEDS: OXYBUTYNIN 10 MG PO SCH (07:41)
[2020-05-04] MEDS: Multivitamins with Iron/Calcium/Folic Acid/Minerals Tab PO SCH (07:41)
[2020-05-04] MEDS: Zinc Sulfate 220 MG (50mg elemental Zinc) Cap PO SCH (07:41)
[2020-05-04] MEDS: Cyanocobalamin (Vitamin B12) 250 MCG Tab PO SCH (07:41)
[2020-05-04] MEDS: Lactobacillus Rhamnosus GG (Probiotic) Cap PO SCH ×2 (07:42→19:48)
[2020-05-04] MEDS: Ascorbic Acid 500 MG Tab PO SCH (07:42)
[2020-05-04] MEDS: BIOFREEZE TOP SCH ×3 (07:42→19:49)
[2020-05-05] MEDS: Fluticasone Propionate Nasal Spray 9.9 ML BOTTLE NASBOTH SCH ×2 (07:23→19:29)
[2020-05-05] MEDS: Carbamide Peroxide 6.5% Otic Soln 15 ML Bottle EARLF SCH (07:23)
[2020-05-05] MEDS: BACLOFEN 10 MG PO SCH ×3 (07:23→19:27)
[2020-05-05] MEDS: OXYBUTYNIN 10 MG PO SCH (07:23)
[2020-05-05] MEDS: Zinc Sulfate 220 MG (50mg elemental Zinc) Cap PO SCH (07:24)
[2020-05-05] MEDS: Acetaminophen 325 MG Tab PO SCH ×2 (07:24→19:28)
[2020-05-05] MEDS: Cyanocobalamin (Vitamin B12) 250 MCG Tab PO SCH (07:24)
[2020-05-05] MEDS: BIOFREEZE TOP SCH ×3 (07:24→19:29)
[2020-05-05] MEDS: Lactobacillus Rhamnosus GG (Probiotic) Cap PO SCH ×2 (07:24→19:27)
[2020-05-05] MEDS: Cholecalciferol (Vitamin D3) 25 MCG Tab PO SCH (07:24)
[2020-05-05] MEDS: Ascorbic Acid 500 MG Tab PO SCH (07:24)
[2020-05-05] MEDS: Multivitamins with Iron/Calcium/Folic Acid/Minerals Tab PO SCH (07:24)
[2020-05-06] MEDS: Fluticasone Propionate Nasal Spray 9.9 ML BOTTLE NASBOTH SCH ×2 (08:39→19:56)
[2020-05-06] MEDS: BIOFREEZE TOP SCH ×3 (08:39→19:56)
[2020-05-06] MEDS: BACLOFEN 10 MG PO SCH ×3 (08:39→19:55)
[2020-05-06] MEDS: Cholecalciferol (Vitamin D3) 25 MCG Tab PO SCH (08:40)
[2020-05-06] MEDS: Acetaminophen 325 MG Tab PO SCH ×2 (08:40→19:55)
[2020-05-06] MEDS: Lactobacillus Rhamnosus GG (Probiotic) Cap PO SCH ×2 (08:40→19:55)
[2020-05-06] MEDS: Multivitamins with Iron/Calcium/Folic Acid/Minerals Tab PO SCH (08:40)
[2020-05-06] MEDS: OXYBUTYNIN 10 MG PO SCH (08:40)
[2020-05-06] MEDS: Ascorbic Acid 500 MG Tab PO SCH (08:41)
[2020-05-06] MEDS: Cyanocobalamin (Vitamin B12) 250 MCG Tab PO SCH (08:41)
[2020-05-06] MEDS: Zinc Sulfate 220 MG (50mg elemental Zinc) Cap PO SCH (08:41)
[2020-05-07] MEDS: Lactobacillus Rhamnosus GG (Probiotic) Cap PO SCH ×2 (08:24→19:16)
[2020-05-07] MEDS: BACLOFEN 10 MG PO SCH ×3 (08:24→19:16)
[2020-05-07] MEDS: OXYBUTYNIN 10 MG PO SCH (08:24)
[2020-05-07] MEDS: Acetaminophen 325 MG Tab PO SCH ×2 (08:24→19:16)
[2020-05-07] MEDS: BIOFREEZE TOP SCH ×3 (08:25→19:17)
[2020-05-07] MEDS: Multivitamins with Iron/Calcium/Folic Acid/Minerals Tab PO SCH (08:25)
[2020-05-07] MEDS: Fluticasone Propionate Nasal Spray 9.9 ML BOTTLE NASBOTH SCH ×2 (08:25→19:17)
[2020-05-07] MEDS: Zinc Sulfate 220 MG (50mg elemental Zinc) Cap PO SCH (08:25)
[2020-05-07] MEDS: Cholecalciferol (Vitamin D3) 25 MCG Tab PO SCH (08:25)
[2020-05-07] MEDS: Ascorbic Acid 500 MG Tab PO SCH (08:25)
[2020-05-07] MEDS: Cyanocobalamin (Vitamin B12) 250 MCG Tab PO SCH (08:25)
[2020-05-08] MEDS: Zinc Sulfate 220 MG (50mg elemental Zinc) Cap PO SCH (08:42)
[2020-05-08] MEDS: Cyanocobalamin (Vitamin B12) 250 MCG Tab PO SCH (08:42)
[2020-05-08] MEDS: Cholecalciferol (Vitamin D3) 25 MCG Tab PO SCH (08:42)
[2020-05-08] MEDS: Acetaminophen 325 MG Tab PO SCH ×2 (08:42→20:39)
[2020-05-08] MEDS: Fluticasone Propionate Nasal Spray 9.9 ML BOTTLE NASBOTH SCH ×2 (08:42→20:38)
[2020-05-08] MEDS: BACLOFEN 10 MG PO SCH ×3 (08:42→20:41)
[2020-05-08] MEDS: OXYBUTYNIN 10 MG PO SCH (08:42)
[2020-05-08] MEDS: Ascorbic Acid 500 MG Tab PO SCH (08:43)
[2020-05-08] MEDS: Multivitamins with Iron/Calcium/Folic Acid/Minerals Tab PO SCH (08:43)
[2020-05-08] MEDS: BIOFREEZE TOP SCH ×3 (08:43→20:39)
[2020-05-08] MEDS: Lactobacillus Rhamnosus GG (Probiotic) Cap PO SCH ×2 (08:43→20:39)
[2020-05-09] MEDS: OXYBUTYNIN 10 MG PO SCH (08:26)
[2020-05-09] MEDS: Fluticasone Propionate Nasal Spray 9.9 ML BOTTLE NASBOTH SCH ×2 (08:26→20:12)
[2020-05-09] MEDS: BACLOFEN 10 MG PO SCH ×3 (08:26→20:12)
[2020-05-09] MEDS: Lactobacillus Rhamnosus GG (Probiotic) Cap PO SCH ×2 (08:27→20:12)
[2020-05-09] MEDS: Acetaminophen 325 MG Tab PO SCH (08:27)
[2020-05-09] MEDS: Zinc Sulfate 220 MG (50mg elemental Zinc) Cap PO SCH (08:27)
[2020-05-09] MEDS: Multivitamins with Iron/Calcium/Folic Acid/Minerals Tab PO SCH (08:27)
[2020-05-09] MEDS: Cholecalciferol (Vitamin D3) 25 MCG Tab PO SCH (08:27)
[2020-05-09] MEDS: Cyanocobalamin (Vitamin B12) 250 MCG Tab PO SCH (08:27)
[2020-05-09] MEDS: BIOFREEZE TOP SCH ×3 (08:27→20:13)
[2020-05-09] MEDS: Ascorbic Acid 500 MG Tab PO SCH (08:27)
[2020-05-10] MEDS: Acetaminophen 325 MG Tab PO SCH ×3 (00:33→20:59)
[2020-05-10] MEDS: BACLOFEN 10 MG PO SCH ×3 (08:37→19:47)
[2020-05-10] MEDS: OXYBUTYNIN 10 MG PO SCH (08:37)
[2020-05-10] MEDS: Zinc Sulfate 220 MG (50mg elemental Zinc) Cap PO SCH (08:37)
[2020-05-10] MEDS: Cholecalciferol (Vitamin D3) 25 MCG Tab PO SCH (08:37)
[2020-05-10] MEDS: Multivitamins with Iron/Calcium/Folic Acid/Minerals Tab PO SCH (08:37)
[2020-05-10] MEDS: Ascorbic Acid 500 MG Tab PO SCH (08:37)
[2020-05-10] MEDS: Lactobacillus Rhamnosus GG (Probiotic) Cap PO SCH ×2 (08:37→19:47)
[2020-05-10] MEDS: Fluticasone Propionate Nasal Spray 9.9 ML BOTTLE NASBOTH SCH ×2 (08:37→19:48)
[2020-05-10] MEDS: BIOFREEZE TOP SCH ×3 (08:38→19:48)
[2020-05-10] MEDS: Cyanocobalamin (Vitamin B12) 250 MCG Tab PO SCH (08:38)
[2020-05-11] MEDS: BACLOFEN 10 MG PO SCH ×3 (07:14→19:50)
[2020-05-11] MEDS: OXYBUTYNIN 10 MG PO SCH (07:14)
[2020-05-11] MEDS: Zinc Sulfate 220 MG (50mg elemental Zinc) Cap PO SCH (07:14)
[2020-05-11] MEDS: Lactobacillus Rhamnosus GG (Probiotic) Cap PO SCH ×2 (07:14→19:49)
[2020-05-11] MEDS: Acetaminophen 325 MG Tab PO SCH ×2 (07:14→19:50)
[2020-05-11] MEDS: Multivitamins with Iron/Calcium/Folic Acid/Minerals Tab PO SCH (07:15)
[2020-05-11] MEDS: Fluticasone Propionate Nasal Spray 9.9 ML BOTTLE NASBOTH SCH ×2 (07:15→19:50)
[2020-05-11] MEDS: Ascorbic Acid 500 MG Tab PO SCH (07:15)
[2020-05-11] MEDS: BIOFREEZE TOP SCH ×3 (07:15→19:49)
[2020-05-11] MEDS: Cholecalciferol (Vitamin D3) 25 MCG Tab PO SCH (07:15)
[2020-05-11] MEDS: Cyanocobalamin (Vitamin B12) 250 MCG Tab PO SCH (07:15)
[2020-05-12] MEDS: OXYBUTYNIN 10 MG PO SCH (08:20)
[2020-05-12] MEDS: BIOFREEZE TOP SCH ×3 (08:20→19:23)
[2020-05-12] MEDS: Fluticasone Propionate Nasal Spray 9.9 ML BOTTLE NASBOTH SCH ×2 (08:20→19:22)
[2020-05-12] MEDS: Acetaminophen 325 MG Tab PO SCH ×2 (08:20→19:23)
[2020-05-12] MEDS: BACLOFEN 10 MG PO SCH ×3 (08:20→19:22)
[2020-05-12] MEDS: Cholecalciferol (Vitamin D3) 25 MCG Tab PO SCH (08:20)
[2020-05-12] MEDS: Zinc Sulfate 220 MG (50mg elemental Zinc) Cap PO SCH (08:21)
[2020-05-12] MEDS: Multivitamins with Iron/Calcium/Folic Acid/Minerals Tab PO SCH (08:21)
[2020-05-12] MEDS: Ascorbic Acid 500 MG Tab PO SCH (08:21)
[2020-05-12] MEDS: Lactobacillus Rhamnosus GG (Probiotic) Cap PO SCH ×2 (08:21→19:22)
[2020-05-12] MEDS: Cyanocobalamin (Vitamin B12) 250 MCG Tab PO SCH (08:21)
[2020-05-13] MEDS: Cholecalciferol (Vitamin D3) 25 MCG Tab PO SCH (09:52)
[2020-05-13] MEDS: Ascorbic Acid 500 MG Tab PO SCH (09:52)
[2020-05-13] MEDS: Multivitamins with Iron/Calcium/Folic Acid/Minerals Tab PO SCH (09:53)
[2020-05-13] MEDS: Lactobacillus Rhamnosus GG (Probiotic) Cap PO SCH ×2 (09:53→19:55)
[2020-05-13] MEDS: Cyanocobalamin (Vitamin B12) 250 MCG Tab PO SCH (09:53)
[2020-05-13] MEDS: Zinc Sulfate 220 MG (50mg elemental Zinc) Cap PO SCH (09:54)
[2020-05-13] MEDS: Fluticasone Propionate Nasal Spray 9.9 ML BOTTLE NASBOTH SCH ×2 (09:54→19:55)
[2020-05-13] MEDS: BACLOFEN 10 MG PO SCH ×3 (09:54→19:55)
[2020-05-13] MEDS: OXYBUTYNIN 10 MG PO SCH (09:54)
[2020-05-13] MEDS: BIOFREEZE TOP SCH ×3 (09:55→19:56)
[2020-05-13] MEDS: Acetaminophen 325 MG Tab PO SCH ×2 (09:56→19:55)
[2020-05-14] MEDS: BACLOFEN 10 MG PO SCH ×3 (07:20→19:28)
[2020-05-14] MEDS: Ascorbic Acid 500 MG Tab PO SCH (07:21)
[2020-05-14] MEDS: Multivitamins with Iron/Calcium/Folic Acid/Minerals Tab PO SCH (07:21)
[2020-05-14] MEDS: Acetaminophen 325 MG Tab PO SCH ×2 (07:21→19:28)
[2020-05-14] MEDS: OXYBUTYNIN 10 MG PO SCH (07:21)
[2020-05-14] MEDS: Cholecalciferol (Vitamin D3) 25 MCG Tab PO SCH (07:21)
[2020-05-14] MEDS: Cyanocobalamin (Vitamin B12) 250 MCG Tab PO SCH (07:21)
[2020-05-14] MEDS: Lactobacillus Rhamnosus GG (Probiotic) Cap PO SCH ×2 (07:21→19:28)
[2020-05-14] MEDS: Zinc Sulfate 220 MG (50mg elemental Zinc) Cap PO SCH (07:21)
[2020-05-14] MEDS: BIOFREEZE TOP SCH ×3 (07:22→19:29)
[2020-05-14] MEDS: Fluticasone Propionate Nasal Spray 9.9 ML BOTTLE NASBOTH SCH ×2 (07:22→19:28)
[2020-05-15] MEDS: BACLOFEN 10 MG PO SCH ×3 (07:17→19:41)
[2020-05-15] MEDS: Zinc Sulfate 220 MG (50mg elemental Zinc) Cap PO SCH (07:18)
[2020-05-15] MEDS: Cholecalciferol (Vitamin D3) 25 MCG Tab PO SCH (07:18)
[2020-05-15] MEDS: Lactobacillus Rhamnosus GG (Probiotic) Cap PO SCH ×2 (07:18→19:42)
[2020-05-15] MEDS: Acetaminophen 325 MG Tab PO SCH ×2 (07:18→19:42)
[2020-05-15] MEDS: Ascorbic Acid 500 MG Tab PO SCH (07:18)
[2020-05-15] MEDS: OXYBUTYNIN 10 MG PO SCH (07:18)
[2020-05-15] MEDS: BIOFREEZE TOP SCH ×3 (07:19→19:42)
[2020-05-15] MEDS: Cyanocobalamin (Vitamin B12) 250 MCG Tab PO SCH (07:19)
[2020-05-15] MEDS: Multivitamins with Iron/Calcium/Folic Acid/Minerals Tab PO SCH (07:19)
[2020-05-15] MEDS: Fluticasone Propionate Nasal Spray 9.9 ML BOTTLE NASBOTH SCH ×2 (07:20→19:42)
[2020-05-16] MEDS: BACLOFEN 10 MG PO SCH ×3 (07:39→19:47)
[2020-05-16] MEDS: Zinc Sulfate 220 MG (50mg elemental Zinc) Cap PO SCH (07:40)
[2020-05-16] MEDS: OXYBUTYNIN 10 MG PO SCH (07:40)
[2020-05-16] MEDS: BIOFREEZE TOP SCH ×3 (07:40→19:49)
[2020-05-16] MEDS: Multivitamins with Iron/Calcium/Folic Acid/Minerals Tab PO SCH (07:40)
[2020-05-16] MEDS: Cholecalciferol (Vitamin D3) 25 MCG Tab PO SCH (07:40)
[2020-05-16] MEDS: Cyanocobalamin (Vitamin B12) 250 MCG Tab PO SCH (07:40)
[2020-05-16] MEDS: Acetaminophen 325 MG Tab PO SCH ×2 (07:41→19:48)
[2020-05-16] MEDS: Ascorbic Acid 500 MG Tab PO SCH (07:41)
[2020-05-16] MEDS: Lactobacillus Rhamnosus GG (Probiotic) Cap PO SCH ×2 (07:42→19:49)
[2020-05-16] MEDS: Fluticasone Propionate Nasal Spray 9.9 ML BOTTLE NASBOTH SCH ×2 (07:42→19:47)
[2020-05-17] MEDS: Multivitamins with Iron/Calcium/Folic Acid/Minerals Tab PO SCH (07:27)
[2020-05-17] MEDS: Acetaminophen 325 MG Tab PO SCH ×2 (07:27→19:19)
[2020-05-17] MEDS: Cholecalciferol (Vitamin D3) 25 MCG Tab PO SCH (07:27)
[2020-05-17] MEDS: Zinc Sulfate 220 MG (50mg elemental Zinc) Cap PO SCH (07:27)
[2020-05-17] MEDS: BIOFREEZE TOP SCH ×3 (07:28→19:21)
[2020-05-17] MEDS: Cyanocobalamin (Vitamin B12) 250 MCG Tab PO SCH (07:28)
[2020-05-17] MEDS: OXYBUTYNIN 10 MG PO SCH (07:28)
[2020-05-17] MEDS: Ascorbic Acid 500 MG Tab PO SCH (07:28)
[2020-05-17] MEDS: BACLOFEN 10 MG PO SCH ×3 (07:28→19:17)
[2020-05-17] MEDS: Fluticasone Propionate Nasal Spray 9.9 ML BOTTLE NASBOTH SCH ×2 (07:28→19:18)
[2020-05-17] MEDS: Lactobacillus Rhamnosus GG (Probiotic) Cap PO SCH ×2 (07:28→19:18)
[2020-05-18] MEDS: Cholecalciferol (Vitamin D3) 25 MCG Tab PO SCH (07:16)
[2020-05-18] MEDS: Fluticasone Propionate Nasal Spray 9.9 ML BOTTLE NASBOTH SCH ×2 (07:16→19:53)
[2020-05-18] MEDS: Cyanocobalamin (Vitamin B12) 250 MCG Tab PO SCH (07:16)
[2020-05-18] MEDS: Acetaminophen 325 MG Tab PO SCH ×2 (07:16→19:53)
[2020-05-18] MEDS: Lactobacillus Rhamnosus GG (Probiotic) Cap PO SCH ×2 (07:16→19:53)
[2020-05-18] MEDS: Zinc Sulfate 220 MG (50mg elemental Zinc) Cap PO SCH (07:16)
[2020-05-18] MEDS: BACLOFEN 10 MG PO SCH ×3 (07:17→19:53)
[2020-05-18] MEDS: BIOFREEZE TOP SCH ×3 (07:17→19:52)
[2020-05-18] MEDS: Ascorbic Acid 500 MG Tab PO SCH (07:17)
[2020-05-18] MEDS: Multivitamins with Iron/Calcium/Folic Acid/Minerals Tab PO SCH (07:17)
[2020-05-18] MEDS: OXYBUTYNIN 10 MG PO SCH (07:17)
[2020-05-19] MEDS: Fluticasone Propionate Nasal Spray 9.9 ML BOTTLE NASBOTH SCH ×2 (08:06→19:44)
[2020-05-19] MEDS: BACLOFEN 10 MG PO SCH ×3 (08:07→19:43)
[2020-05-19] MEDS: Acetaminophen 325 MG Tab PO SCH ×2 (08:07→19:45)
[2020-05-19] MEDS: OXYBUTYNIN 10 MG PO SCH (08:07)
[2020-05-19] MEDS: Zinc Sulfate 220 MG (50mg elemental Zinc) Cap PO SCH (08:08)
[2020-05-19] MEDS: Lactobacillus Rhamnosus GG (Probiotic) Cap PO SCH ×2 (08:08→19:43)
[2020-05-19] MEDS: Multivitamins with Iron/Calcium/Folic Acid/Minerals Tab PO SCH (08:08)
[2020-05-19] MEDS: Ascorbic Acid 500 MG Tab PO SCH (08:09)
[2020-05-19] MEDS: Cyanocobalamin (Vitamin B12) 250 MCG Tab PO SCH (08:09)
[2020-05-19] MEDS: Cholecalciferol (Vitamin D3) 25 MCG Tab PO SCH (08:09)
[2020-05-19] MEDS: BIOFREEZE TOP SCH ×3 (08:10→19:44)
[2020-05-20] MEDS: OXYBUTYNIN 10 MG PO SCH (09:34)
[2020-05-20] MEDS: Acetaminophen 325 MG Tab PO SCH ×2 (09:35→20:33)
[2020-05-20] MEDS: Multivitamins with Iron/Calcium/Folic Acid/Minerals Tab PO SCH (09:35)
[2020-05-20] MEDS: Fluticasone Propionate Nasal Spray 9.9 ML BOTTLE NASBOTH SCH ×2 (09:35→20:35)
[2020-05-20] MEDS: BIOFREEZE TOP SCH ×3 (09:35→20:36)
[2020-05-20] MEDS: Lactobacillus Rhamnosus GG (Probiotic) Cap PO SCH ×2 (09:35→20:33)
[2020-05-20] MEDS: BACLOFEN 10 MG PO SCH ×3 (09:35→20:32)
[2020-05-20] MEDS: Cholecalciferol (Vitamin D3) 25 MCG Tab PO SCH (09:36)
[2020-05-20] MEDS: Ascorbic Acid 500 MG Tab PO SCH (09:36)
[2020-05-20] MEDS: Cyanocobalamin (Vitamin B12) 250 MCG Tab PO SCH (09:36)
[2020-05-20] MEDS: Zinc Sulfate 220 MG (50mg elemental Zinc) Cap PO SCH (09:37)
[2020-05-21] MEDS: Zinc Sulfate 220 MG (50mg elemental Zinc) Cap PO SCH (07:48)
[2020-05-21] MEDS: OXYBUTYNIN 10 MG PO SCH (07:48)
[2020-05-21] MEDS: Cholecalciferol (Vitamin D3) 25 MCG Tab PO SCH (07:48)
[2020-05-21] MEDS: Lactobacillus Rhamnosus GG (Probiotic) Cap PO SCH ×2 (07:48→20:32)
[2020-05-21] MEDS: BACLOFEN 10 MG PO SCH ×3 (07:48→21:48)
[2020-05-21] MEDS: Cyanocobalamin (Vitamin B12) 250 MCG Tab PO SCH (07:49)
[2020-05-21] MEDS: Multivitamins with Iron/Calcium/Folic Acid/Minerals Tab PO SCH (07:49)
[2020-05-21] MEDS: Ascorbic Acid 500 MG Tab PO SCH (07:49)
[2020-05-21] MEDS: BIOFREEZE TOP SCH ×3 (07:49→20:30)
[2020-05-21] MEDS: Acetaminophen 325 MG Tab PO SCH ×2 (07:49→20:33)
[2020-05-21] MEDS: Fluticasone Propionate Nasal Spray 9.9 ML BOTTLE NASBOTH SCH ×2 (07:50→20:32)
[2020-05-22] MEDS: BACLOFEN 10 MG PO SCH ×3 (09:45→19:57)
[2020-05-22] MEDS: BIOFREEZE TOP SCH ×3 (09:45→21:10)
[2020-05-22] MEDS: OXYBUTYNIN 10 MG PO SCH (09:45)
[2020-05-22] MEDS: Cyanocobalamin (Vitamin B12) 250 MCG Tab PO SCH (09:46)
[2020-05-22] MEDS: Acetaminophen 325 MG Tab PO SCH ×2 (09:46→19:58)
[2020-05-22] MEDS: Multivitamins with Iron/Calcium/Folic Acid/Minerals Tab PO SCH (09:46)
[2020-05-22] MEDS: Fluticasone Propionate Nasal Spray 9.9 ML BOTTLE NASBOTH SCH ×2 (09:46→19:56)
[2020-05-22] MEDS: Zinc Sulfate 220 MG (50mg elemental Zinc) Cap PO SCH (09:47)
[2020-05-22] MEDS: Cholecalciferol (Vitamin D3) 25 MCG Tab PO SCH (09:47)
[2020-05-22] MEDS: Lactobacillus Rhamnosus GG (Probiotic) Cap PO SCH ×2 (09:47→19:56)
[2020-05-22] MEDS: Ascorbic Acid 500 MG Tab PO SCH (09:47)
--- NOTE | 2020-05-22 11:04 | PCM.PN ---
- General Info Date of Service: 05/22/20 Subjective Update: 45 yo male on fpc swing bed seen today for follow-up. Patient states he is feeling well and denies any concerns. His wound is nearly healed up. He is having no further issues with his ear after he had this lavaged in clinic. He has been feeling well with no URI symptoms, fever, or chills. He received both doses of his COVID vaccine and has done well with that. The oxybutynin is working well for his bladder. - Review of Systems General: Reports: No Symptoms HEENT: Reports: No Symptoms Pulmonary: Reports: No Symptoms Cardiovascular: Reports: No Symptoms Gastrointestinal: Reports: No Symptoms Genitourinary: Reports: No Symptoms Musculoskeletal: Reports: No Symptoms Skin: Reports: No Symptoms Neurological: Reports: No Symptoms Psychiatric: Reports: No Symptoms - Patient Data Vitals - Most Recent: Last Vital Signs Temp 35.9 C L 05/22/20 06:00 Pulse 73 05/22/20 06:00 Resp 16 05/22/20 06:00 BP 128/78 05/22/20 06:00 Pulse Ox 97 05/22/20 06:00 Weight - Most Recent: 140.614 kg I&O - Last 24 Hours: Intake & Output 05/21/20 05/22/20 05/22/20 22:59 06:59 14:59 Output Total 2600 3250 Balance -2600 -3250 Med Orders - Current: Current Medications Acetaminophen (Tylenol) 650 mg PO BID [facility] Last Admin: 05/22/20 09:46 Dose: 650 mg Documented by: Acetaminophen (Tylenol) 650 mg PO Q6H PRN PRN Reason: Pain Last Admin: 03/19/20 06:34 Dose: 650 mg Documented by: Ascorbic Acid (Vitamin C) 500 mg PO DAILY [facility] Last Admin: 05/22/20 09:47 Dose: 500 mg Documented by: Baclofen (Lioresal) 5 mg PO TID [facility] Last Admin: 05/22/20 09:45 Dose: 5 mg Documented by: Cholecalciferol (Vitamin D3) 100 mcg PO DAILY [facility] Last Admin: 05/22/20 09:47 Dose: 100 mcg Documented by: Cyanocobalamin (Vitamin B12) 500 mcg PO DAILY [facility] Last Admin: 05/22/20 09:46 Dose: 500 mcg Documented by: Fluticasone Propionate (Fluticasone Propionate) 0.33 ml NASBOTH BID [facility] Last Admin: 05/22/20 09:46 Dose: 1 spray Documented by: Lactobacillus Rhamnosus (Culturelle) 1 cap PO BID@0800,2000 [facility] Last Admin: 05/22/20 09:47 Dose: 1 cap Documented by: Miconazole (Desenex 2%) 0 gm TOP BID PRN PRN Reason: Rash Last Admin: 12/20/19 20:53 Dose: 1 applic Documented by: Multivitamins/Minerals (Thera M Plus) 1 tab PO DAILY [facility] Last Admin: 05/22/20 09:46 Dose: 1 tab Documented by: Oxybutynin.Er 10mg ( (Own Supply)) 1 each PO DAILY [facility] Last Admin: 05/22/20 09:45 Dose: 1 each Documented by: Biofreeze Topical * (Pt Own Med*) 0 each TOP TID [facility] Last Admin: 05/22/20 09:45 Dose: 1 each Documented by: Senna/Docusate Sodium (Senna Plus) 2 tab PO BEDTIME PRN PRN Reason: Constipation Last Admin: 04/19/20 08:02 Dose: 2 tab Documented by: Zinc Sulfate (Zincate) 220 mg PO DAILY [facility] Last Admin: 05/22/20 09:47 Dose: 220 mg Documented by: Discontinued Medications Alteplase, Recombinant (Cathflo Activase) 2 mg IVPUSH ONETIME ONE Stop: 10/23/19 12:45 Last Admin: 10/23/19 13:30 Dose: 2 mg Documented by: Baclofen (Lioresal) 5 mg PO TID [facility] Last Admin: 01/27/20 08:23 Dose: 5 mg Documented by: Baclofen (Lioresal) 5 mg PO TID [facility] Stop: 11/21/19 20:00 Last Admin: 11/21/19 19:52 Dose: 5 mg Documented by: Carbamide Perox/Anhydrous Glycerin (Debrox 6.5% Otic Soln) 0.25 ml EARLF BID [facility] Stop: 05/05/20 08:00 Last Admin: 05/05/20 07:23 Dose: 1 drop Documented by: Clindamycin HCl (Cleocin) 150 mg PO TID [facility] Stop: 12/28/19 20:01 Last Admin: 12/19/19 09:26 Dose: 150 mg Documented by: Clindamycin HCl (Cleocin) 150 mg PO TID [facility] Stop: 12/28/19 20:01 Last Admin: 12/28/19 21:15 Dose: Not Given Documented by: Clindamycin HCl (Cleocin) 150 mg PO ONETIME ONE Stop: 12/28/19 21:31 Last Admin: 12/28/19 21:34 Dose: 150 mg Documented by: Fluticasone Propionate (Fluticasone Propionate) 0 ml NASBOTH BID [facility] Last Admin: 01/24/20 09:13 Dose: 1 ml Documented by: Fluticasone Propionate (Flonase) 0 gm NASBOTH BID [facility] Stop: 11/21/19 20:01 Last Admin: 11/21/19 19:51 Dose: 1 spray Documented by: Fluticasone Propionate (Flonase) 0 gm NASBOTH BID [facility] Last Admin: 01/09/20 09:39 Dose: Not Given Documented by: Heparin Sodium (Porcine) (Heparin Lock Flush 100 Units/Ml) 300 unit FLUSH ASDIRECTED PRN PRN Reason: Keep Vein Open Last Admin: 11/27/19 06:45 Dose: 300 unit Documented by: Heparin Sodium (Porcine) (Heparin Lock Flush 100 Units/Ml) 300 unit FLUSH Q8H [facility] Stop: 11/25/19 23:59 Last Admin: 11/18/19 19:25 Dose: Not Given Documented by: Heparin Sodium (Porcine) (Heparin Lock Flush 100 Units/Ml) 300 unit FLUSH Q8H [facility] Stop: 11/25/19 23:59 Last Admin: 11/25/19 20:08 Dose: 300 unit Documented by: Piperacillin Sod/Tazobactam (Sod 4.5 gm/ Sodium Chloride) 100 mls @ 25 mls/hr IV Q8H [facility] Stop: 11/25/19 23:58 Last Admin: 11/18/19 09:46 Dose: Not Given Documented by: Piperacillin Sod/Tazobactam (Sod 4.5 gm/ Sodium Chloride) 100 mls @ 200 mls/hr IV ONETIME ONE Stop: 11/18/19 15:29 Last Admin: 11/18/19 15:07 Dose: 200 mls/hr Documented by: Piperacillin Sod/Tazobactam (Sod 4.5 gm/ Sodium Chloride) 100 mls @ 25 mls/hr IV Q8H [facility] Stop: 11/25/19 23:58 Last Admin: 11/25/19 23:20 Dose: 25 mls/hr Documented by: Lactobacillus Rhamnosus (Culturelle) 1 cap PO DAILY [facility] Last Admin: 12/20/19 09:12 Dose: 1 cap Documented by: Lactobacillus Rhamnosus (Culturelle) 1 cap PO BID@1000,2200 [facility] Stop: 01/11/20 22:01 Last Admin: 12/30/19 08:17 Dose: 1 cap Documented by: Clindamycin 300mg (Cap (Own Supply)) 1 each PO BID [facility] Stop: 03/22/20 08:01 Last Admin: 03/22/20 08:16 Dose: 1 each Documented by: Oxybutynin Chloride (Oxybutynin Er) 5 mg PO DAILY [facility] Last Admin: 04/22/20 08:49 Dose: 5 mg Documented by: Oxybutynin Chloride (Oxybutynin Er) 10 mg PO DAILY [facility] Stop: 05/02/20 08:01 Last Admin: 05/02/20 09:08 Dose: 10 mg Documented by: Oxybutynin Chloride (Oxybutynin Er) 5 mg PO ONETIME ONE Stop: 04/22/20 12:31 Last Admin: 04/22/20 13:43 Dose: 5 mg Documented by: Sodium Bicarbonate (Sodium Bicarbonate 8.4%) Confirm Administered Dose 50 meq .ROUTE .STK-MED ONE Stop: 11/02/19 12:42 Last Admin: 11/02/19 13:28 Dose: Not Given Documented by: Sodium Chloride (Saline Flush) 10 ml IV ASDIRECTED PRN PRN Reason: Keep Vein Open Last Admin: 11/27/19 06:45 Dose: 10 ml Documented by: Zinc Gluconate (Zinc) 50 mg PO DAILY [facility] Last Admin: 03/19/20 11:20 Dose: Not Given Documented by: - Exam General: Alert, Cooperative, No Acute Distress HEENT: Mucous Membr. Moist/[place] Neck: Supple, Trachea Midline, No Thyromegaly. No: Lymphadenopathy Lungs: Clear to Auscultation, Normal Respiratory Effort Cardiovascular: Regular Rate, Regular Rhythm, No Murmurs GI/Abdominal Exam: Normal Bowel Sounds, Soft, Non-Tender, No Organomegaly, No Distention, No Mass Extremities: Normal Inspection, No Pedal Edema, Normal Capillary Refill Peripheral Pulses: 2+: Radial (L), Radial (R) Skin: Warm, Dry Sepsis Event Note - Evaluation Sepsis Screening Result: No Definite Risk - Focused Exam Vital Signs: Vital Signs Temp Pulse Resp BP Pulse Ox 05/22/20 06:00 35.9 C L 73 16 128/78 97 - Problem List & Annotations (1) Sacral decubitus ulcer SNOMED Code(s): 576017944 Code(s): L89.159 - PRESSURE ULCER OF SACRAL REGION, UNSPECIFIED STAGE Status: Acute Current Visit: No Qualifiers: Pressure injury stage: unspecified pressure injury stage Qualified Code(s): L89.159 - Pressure ulcer of sacral region, unspecified stage (2) Chronic sinusitis SNOMED Code(s): 28128259 Code(s): J32.9 - CHRONIC SINUSITIS, UNSPECIFIED Status: Chronic Current Visit: No (3) Constipation SNOMED Code(s): 28591220 Code(s): K59.00 - CONSTIPATION, UNSPECIFIED Status: Chronic Current Visit: No (4) Hypertension SNOMED Code(s): 97332250 Code(s): I10 - ESSENTIAL (PRIMARY) HYPERTENSION Status: Chronic Current Visit: No (5) Multiple sclerosis SNOMED Code(s): 43449278 Code(s): G35 - MULTIPLE SCLEROSIS Status: Chronic Current Visit: No (6) Neurogenic bladder SNOMED Code(s): 372107203 Code(s): N31.9 - NEUROMUSCULAR DYSFUNCTION OF BLADDER, UNSPECIFIED Status: Chronic Current Visit: No (7) Adjustment disorder SNOMED Code(s): 51883658 Code(s): F43.20 - ADJUSTMENT DISORDER, UNSPECIFIED Status: Acute Current Visit: No Qualifiers: Adjustment disorder type: with depressed mood Qualified Code(s): F43.21 - Adjustment disorder with depressed mood (8) Squamous cell carcinoma SNOMED Code(s): 351395687 Code(s): JSE5702 - Status: Acute Current Visit: Yes - Problem List Review Problem List Initiated/Reviewed/Updated: Yes - Assessment Assessment:: 44 yo male on fpc swing bed for wound cares related to a sacral pressure ulcer. Wound is now basically healed and he is otherwise doing well. - Plan Plan:: #1 Sacral decubitus ulcer - Wound is now essentially healed. He has not had any osteomyelitis for quite some time. - Wound clinic follow-ups as scheduled. #2 Chronic sinusitis #3 Constipation #4 Hypertension #5 MS - Continue current medications and neurology follow-ups as scheduled. #6 Neurogenic bladder - Suprapubic catheter is working well. - Continue oxybutynin. #7 Adjustment disorder - Mood remains good. #8 SCC - Has completed. Follow-up as recommended by dermatology. Patient is admitted to swing bed - wound is not quite resolved but continues to make steady progress. He will remain on swing bed until an appropriate alternative living environment is available for him. Case management is actively working on this. Code status is DNR/DNI - discussed on admission. No indication for VTE prophylaxis as he is at his usual functional baseline.
[2020-05-23] MEDS: Multivitamins with Iron/Calcium/Folic Acid/Minerals Tab PO SCH (09:00)
[2020-05-23] MEDS: Fluticasone Propionate Nasal Spray 9.9 ML BOTTLE NASBOTH SCH ×2 (09:00→19:45)
[2020-05-23] MEDS: Zinc Sulfate 220 MG (50mg elemental Zinc) Cap PO SCH (09:00)
[2020-05-23] MEDS: Lactobacillus Rhamnosus GG (Probiotic) Cap PO SCH ×2 (09:00→19:44)
[2020-05-23] MEDS: Ascorbic Acid 500 MG Tab PO SCH (09:00)
[2020-05-23] MEDS: Cyanocobalamin (Vitamin B12) 250 MCG Tab PO SCH (09:00)
[2020-05-23] MEDS: Acetaminophen 325 MG Tab PO SCH ×2 (09:00→19:48)
[2020-05-23] MEDS: BIOFREEZE TOP SCH ×3 (09:01→19:47)
[2020-05-23] MEDS: BACLOFEN 10 MG PO SCH ×3 (09:01→19:45)
[2020-05-23] MEDS: Cholecalciferol (Vitamin D3) 25 MCG Tab PO SCH (09:01)
[2020-05-23] MEDS: OXYBUTYNIN 10 MG PO SCH (09:01)
[2020-05-24] MEDS: OXYBUTYNIN 10 MG PO SCH (07:27)
[2020-05-24] MEDS: Multivitamins with Iron/Calcium/Folic Acid/Minerals Tab PO SCH (07:28)
[2020-05-24] MEDS: BACLOFEN 10 MG PO SCH ×3 (07:28→19:50)
[2020-05-24] MEDS: BIOFREEZE TOP SCH ×3 (07:28→19:51)
[2020-05-24] MEDS: Acetaminophen 325 MG Tab PO SCH ×2 (07:29→19:52)
[2020-05-24] MEDS: Lactobacillus Rhamnosus GG (Probiotic) Cap PO SCH ×2 (07:29→19:50)
[2020-05-24] MEDS: Cyanocobalamin (Vitamin B12) 250 MCG Tab PO SCH (07:29)
[2020-05-24] MEDS: Zinc Sulfate 220 MG (50mg elemental Zinc) Cap PO SCH (07:29)
[2020-05-24] MEDS: Cholecalciferol (Vitamin D3) 25 MCG Tab PO SCH (07:29)
[2020-05-24] MEDS: Fluticasone Propionate Nasal Spray 9.9 ML BOTTLE NASBOTH SCH ×2 (07:30→19:51)
[2020-05-24] MEDS: Ascorbic Acid 500 MG Tab PO SCH (07:31)
[2020-05-25] MEDS: Ascorbic Acid 500 MG Tab PO SCH (08:19)
[2020-05-25] MEDS: Fluticasone Propionate Nasal Spray 9.9 ML BOTTLE NASBOTH SCH ×2 (08:20→19:31)
[2020-05-25] MEDS: Zinc Sulfate 220 MG (50mg elemental Zinc) Cap PO SCH (08:20)
[2020-05-25] MEDS: Cyanocobalamin (Vitamin B12) 250 MCG Tab PO SCH (08:20)
[2020-05-25] MEDS: Multivitamins with Iron/Calcium/Folic Acid/Minerals Tab PO SCH (08:20)
[2020-05-25] MEDS: Cholecalciferol (Vitamin D3) 25 MCG Tab PO SCH (08:20)
[2020-05-25] MEDS: Lactobacillus Rhamnosus GG (Probiotic) Cap PO SCH ×2 (08:20→19:32)
[2020-05-25] MEDS: BIOFREEZE TOP SCH ×3 (08:21→19:33)
[2020-05-25] MEDS: OXYBUTYNIN 10 MG PO SCH (08:21)
[2020-05-25] MEDS: BACLOFEN 10 MG PO SCH ×3 (08:21→19:31)
[2020-05-25] MEDS: Acetaminophen 325 MG Tab PO SCH ×2 (08:22→19:32)
[2020-05-26] MEDS: Multivitamins with Iron/Calcium/Folic Acid/Minerals Tab PO SCH (07:23)
[2020-05-26] MEDS: Zinc Sulfate 220 MG (50mg elemental Zinc) Cap PO SCH (07:23)
[2020-05-26] MEDS: Acetaminophen 325 MG Tab PO SCH ×2 (07:23→20:23)
[2020-05-26] MEDS: Cyanocobalamin (Vitamin B12) 250 MCG Tab PO SCH (07:23)
[2020-05-26] MEDS: Ascorbic Acid 500 MG Tab PO SCH (07:23)
[2020-05-26] MEDS: Cholecalciferol (Vitamin D3) 25 MCG Tab PO SCH (07:23)
[2020-05-26] MEDS: Lactobacillus Rhamnosus GG (Probiotic) Cap PO SCH ×2 (07:23→20:22)
[2020-05-26] MEDS: OXYBUTYNIN 10 MG PO SCH (07:24)
[2020-05-26] MEDS: BIOFREEZE TOP SCH ×3 (07:24→20:23)
[2020-05-26] MEDS: BACLOFEN 10 MG PO SCH ×3 (07:24→20:22)
[2020-05-26] MEDS: Fluticasone Propionate Nasal Spray 9.9 ML BOTTLE NASBOTH SCH ×2 (07:24→20:22)
[2020-05-27] MEDS: Acetaminophen 325 MG Tab PO SCH ×2 (08:05→20:01)
[2020-05-27] MEDS: Cholecalciferol (Vitamin D3) 25 MCG Tab PO SCH (08:06)
[2020-05-27] MEDS: Lactobacillus Rhamnosus GG (Probiotic) Cap PO SCH ×2 (08:06→20:02)
[2020-05-27] MEDS: Cyanocobalamin (Vitamin B12) 250 MCG Tab PO SCH (08:07)
[2020-05-27] MEDS: Ascorbic Acid 500 MG Tab PO SCH (08:08)
[2020-05-27] MEDS: Zinc Sulfate 220 MG (50mg elemental Zinc) Cap PO SCH (08:08)
[2020-05-27] MEDS: Fluticasone Propionate Nasal Spray 9.9 ML BOTTLE NASBOTH SCH ×2 (08:08→20:03)
[2020-05-27] MEDS: BACLOFEN 10 MG PO SCH ×3 (08:08→20:02)
[2020-05-27] MEDS: Multivitamins with Iron/Calcium/Folic Acid/Minerals Tab PO SCH (08:08)
[2020-05-27] MEDS: BIOFREEZE TOP SCH ×3 (08:09→20:03)
[2020-05-27] MEDS: OXYBUTYNIN 10 MG PO SCH (08:09)
[2020-05-28] MEDS: Acetaminophen 325 MG Tab PO SCH ×2 (08:06→19:50)
[2020-05-28] MEDS: Cholecalciferol (Vitamin D3) 25 MCG Tab PO SCH (08:07)
[2020-05-28] MEDS: BACLOFEN 10 MG PO SCH ×3 (08:08→19:51)
[2020-05-28] MEDS: OXYBUTYNIN 10 MG PO SCH (08:08)
[2020-05-28] MEDS: Zinc Sulfate 220 MG (50mg elemental Zinc) Cap PO SCH (08:09)
[2020-05-28] MEDS: Ascorbic Acid 500 MG Tab PO SCH (08:09)
[2020-05-28] MEDS: Cyanocobalamin (Vitamin B12) 250 MCG Tab PO SCH (08:09)
[2020-05-28] MEDS: Lactobacillus Rhamnosus GG (Probiotic) Cap PO SCH ×2 (08:09→19:50)
[2020-05-28] MEDS: Fluticasone Propionate Nasal Spray 9.9 ML BOTTLE NASBOTH SCH ×2 (08:09→19:50)
[2020-05-28] MEDS: BIOFREEZE TOP SCH ×3 (08:09→19:49)
[2020-05-28] MEDS: Multivitamins with Iron/Calcium/Folic Acid/Minerals Tab PO SCH (08:09)
[2020-05-29] MEDS: OXYBUTYNIN 10 MG PO SCH (08:58)
[2020-05-29] MEDS: BACLOFEN 10 MG PO SCH ×3 (08:58→19:42)
[2020-05-29] MEDS: Fluticasone Propionate Nasal Spray 9.9 ML BOTTLE NASBOTH SCH ×2 (08:58→19:42)
[2020-05-29] MEDS: Lactobacillus Rhamnosus GG (Probiotic) Cap PO SCH ×2 (08:59→19:42)
[2020-05-29] MEDS: Acetaminophen 325 MG Tab PO SCH ×2 (08:59→19:43)
[2020-05-29] MEDS: Cyanocobalamin (Vitamin B12) 250 MCG Tab PO SCH (08:59)
[2020-05-29] MEDS: Cholecalciferol (Vitamin D3) 25 MCG Tab PO SCH (08:59)
[2020-05-29] MEDS: Ascorbic Acid 500 MG Tab PO SCH (08:59)
[2020-05-29] MEDS: Zinc Sulfate 220 MG (50mg elemental Zinc) Cap PO SCH (08:59)
[2020-05-29] MEDS: Multivitamins with Iron/Calcium/Folic Acid/Minerals Tab PO SCH (08:59)
[2020-05-29] MEDS: BIOFREEZE TOP SCH ×3 (09:00→19:44)
[2020-05-30] MEDS: Fluticasone Propionate Nasal Spray 9.9 ML BOTTLE NASBOTH SCH ×2 (09:57→19:37)
[2020-05-30] MEDS: OXYBUTYNIN 10 MG PO SCH (09:57)
[2020-05-30] MEDS: BACLOFEN 10 MG PO SCH ×3 (09:57→19:37)
[2020-05-30] MEDS: Ascorbic Acid 500 MG Tab PO SCH (09:58)
[2020-05-30] MEDS: Cholecalciferol (Vitamin D3) 25 MCG Tab PO SCH (09:58)
[2020-05-30] MEDS: Lactobacillus Rhamnosus GG (Probiotic) Cap PO SCH ×2 (09:58→19:37)
[2020-05-30] MEDS: Multivitamins with Iron/Calcium/Folic Acid/Minerals Tab PO SCH (09:58)
[2020-05-30] MEDS: Cyanocobalamin (Vitamin B12) 250 MCG Tab PO SCH (09:59)
[2020-05-30] MEDS: Zinc Sulfate 220 MG (50mg elemental Zinc) Cap PO SCH (09:59)
[2020-05-30] MEDS: Acetaminophen 325 MG Tab PO SCH ×2 (09:59→19:37)
[2020-05-30] MEDS: BIOFREEZE TOP SCH ×3 (10:00→19:38)
[2020-05-31] MEDS: BACLOFEN 10 MG PO SCH ×3 (08:57→20:10)
[2020-05-31] MEDS: OXYBUTYNIN 10 MG PO SCH (08:57)
[2020-05-31] MEDS: Fluticasone Propionate Nasal Spray 9.9 ML BOTTLE NASBOTH SCH ×2 (08:57→20:09)
[2020-05-31] MEDS: Acetaminophen 325 MG Tab PO SCH ×2 (08:58→20:10)
[2020-05-31] MEDS: Lactobacillus Rhamnosus GG (Probiotic) Cap PO SCH ×2 (08:59→20:10)
[2020-05-31] MEDS: Zinc Sulfate 220 MG (50mg elemental Zinc) Cap PO SCH (08:59)
[2020-05-31] MEDS: Cyanocobalamin (Vitamin B12) 250 MCG Tab PO SCH (08:59)
[2020-05-31] MEDS: Ascorbic Acid 500 MG Tab PO SCH (08:59)
[2020-05-31] MEDS: Cholecalciferol (Vitamin D3) 25 MCG Tab PO SCH (08:59)
[2020-05-31] MEDS: Multivitamins with Iron/Calcium/Folic Acid/Minerals Tab PO SCH (08:59)
[2020-05-31] MEDS: BIOFREEZE TOP SCH ×3 (09:00→20:09)
[2020-06-01] MEDS: Fluticasone Propionate Nasal Spray 9.9 ML BOTTLE NASBOTH SCH ×2 (09:01→20:09)
[2020-06-01] MEDS: Acetaminophen 325 MG Tab PO SCH ×2 (09:01→20:08)
[2020-06-01] MEDS: BACLOFEN 10 MG PO SCH ×3 (09:01→20:09)
[2020-06-01] MEDS: OXYBUTYNIN 10 MG PO SCH (09:01)
[2020-06-01] MEDS: Multivitamins with Iron/Calcium/Folic Acid/Minerals Tab PO SCH (09:02)
[2020-06-01] MEDS: Cyanocobalamin (Vitamin B12) 250 MCG Tab PO SCH (09:02)
[2020-06-01] MEDS: Ascorbic Acid 500 MG Tab PO SCH (09:03)
[2020-06-01] MEDS: Cholecalciferol (Vitamin D3) 25 MCG Tab PO SCH (09:03)
[2020-06-01] MEDS: BIOFREEZE TOP SCH ×3 (09:03→20:08)
[2020-06-01] MEDS: Zinc Sulfate 220 MG (50mg elemental Zinc) Cap PO SCH (09:03)
[2020-06-01] MEDS: Lactobacillus Rhamnosus GG (Probiotic) Cap PO SCH ×2 (09:03→20:08)
[2020-06-02] MEDS: OXYBUTYNIN 10 MG PO SCH (08:09)
[2020-06-02] MEDS: BACLOFEN 10 MG PO SCH ×3 (08:09→19:46)
[2020-06-02] MEDS: Multivitamins with Iron/Calcium/Folic Acid/Minerals Tab PO SCH (08:09)
[2020-06-02] MEDS: Zinc Sulfate 220 MG (50mg elemental Zinc) Cap PO SCH (08:10)
[2020-06-02] MEDS: Acetaminophen 325 MG Tab PO SCH ×2 (08:10→19:46)
[2020-06-02] MEDS: Ascorbic Acid 500 MG Tab PO SCH (08:10)
[2020-06-02] MEDS: Lactobacillus Rhamnosus GG (Probiotic) Cap PO SCH ×2 (08:10→19:46)
[2020-06-02] MEDS: Cyanocobalamin (Vitamin B12) 250 MCG Tab PO SCH (08:11)
[2020-06-02] MEDS: Cholecalciferol (Vitamin D3) 25 MCG Tab PO SCH (08:11)
[2020-06-02] MEDS: Fluticasone Propionate Nasal Spray 9.9 ML BOTTLE NASBOTH SCH ×2 (08:11→19:45)
[2020-06-02] MEDS: BIOFREEZE TOP SCH ×3 (08:14→19:45)
[2020-06-03] MEDS: Cyanocobalamin (Vitamin B12) 250 MCG Tab PO SCH (09:17)
[2020-06-03] MEDS: Cholecalciferol (Vitamin D3) 25 MCG Tab PO SCH (09:17)
[2020-06-03] MEDS: Lactobacillus Rhamnosus GG (Probiotic) Cap PO SCH ×2 (09:17→19:07)
[2020-06-03] MEDS: Multivitamins with Iron/Calcium/Folic Acid/Minerals Tab PO SCH (09:18)
[2020-06-03] MEDS: Acetaminophen 325 MG Tab PO SCH ×2 (09:18→19:08)
[2020-06-03] MEDS: Ascorbic Acid 500 MG Tab PO SCH (09:18)
[2020-06-03] MEDS: Zinc Sulfate 220 MG (50mg elemental Zinc) Cap PO SCH (09:18)
[2020-06-03] MEDS: Fluticasone Propionate Nasal Spray 9.9 ML BOTTLE NASBOTH SCH ×2 (09:19→19:07)
[2020-06-03] MEDS: BACLOFEN 10 MG PO SCH ×3 (09:19→19:08)
[2020-06-03] MEDS: OXYBUTYNIN 10 MG PO SCH (09:20)
[2020-06-03] MEDS: BIOFREEZE TOP SCH ×3 (09:21→19:11)
[2020-06-04] MEDS: BACLOFEN 10 MG PO SCH ×3 (08:18→20:19)
[2020-06-04] MEDS: OXYBUTYNIN 10 MG PO SCH (08:18)
[2020-06-04] MEDS: Fluticasone Propionate Nasal Spray 9.9 ML BOTTLE NASBOTH SCH ×2 (08:18→20:19)
[2020-06-04] MEDS: Zinc Sulfate 220 MG (50mg elemental Zinc) Cap PO SCH (08:19)
[2020-06-04] MEDS: Cyanocobalamin (Vitamin B12) 250 MCG Tab PO SCH (08:19)
[2020-06-04] MEDS: Ascorbic Acid 500 MG Tab PO SCH (08:19)
[2020-06-04] MEDS: Cholecalciferol (Vitamin D3) 25 MCG Tab PO SCH (08:19)
[2020-06-04] MEDS: Multivitamins with Iron/Calcium/Folic Acid/Minerals Tab PO SCH (08:19)
[2020-06-04] MEDS: Acetaminophen 325 MG Tab PO SCH ×2 (08:19→20:20)
[2020-06-04] MEDS: Lactobacillus Rhamnosus GG (Probiotic) Cap PO SCH ×2 (08:19→20:19)
[2020-06-04] MEDS: BIOFREEZE TOP SCH ×3 (08:21→20:22)
[2020-06-05] MEDS: BACLOFEN 10 MG PO SCH ×3 (11:14→19:40)
[2020-06-05] MEDS: BIOFREEZE TOP SCH ×3 (11:14→19:41)
[2020-06-05] MEDS: Cyanocobalamin (Vitamin B12) 250 MCG Tab PO SCH (14:39)
[2020-06-05] MEDS: Multivitamins with Iron/Calcium/Folic Acid/Minerals Tab PO SCH (14:39)
[2020-06-05] MEDS: Zinc Sulfate 220 MG (50mg elemental Zinc) Cap PO SCH (14:39)
[2020-06-05] MEDS: Lactobacillus Rhamnosus GG (Probiotic) Cap PO SCH ×2 (14:39→19:41)
[2020-06-05] MEDS: Cholecalciferol (Vitamin D3) 25 MCG Tab PO SCH (14:39)
[2020-06-05] MEDS: Ascorbic Acid 500 MG Tab PO SCH (14:39)
[2020-06-05] MEDS: OXYBUTYNIN 10 MG PO SCH (14:39)
[2020-06-05] MEDS: Fluticasone Propionate Nasal Spray 9.9 ML BOTTLE NASBOTH SCH ×2 (14:40→19:41)
[2020-06-05] MEDS: Acetaminophen 325 MG Tab PO SCH ×2 (14:46→19:41)
[2020-06-06] MEDS: Multivitamins with Iron/Calcium/Folic Acid/Minerals Tab PO SCH (07:39)
[2020-06-06] MEDS: Cholecalciferol (Vitamin D3) 25 MCG Tab PO SCH (07:39)
[2020-06-06] MEDS: Acetaminophen 325 MG Tab PO SCH ×2 (07:39→19:29)
[2020-06-06] MEDS: Ascorbic Acid 500 MG Tab PO SCH (07:39)
[2020-06-06] MEDS: Cyanocobalamin (Vitamin B12) 250 MCG Tab PO SCH (07:39)
[2020-06-06] MEDS: Lactobacillus Rhamnosus GG (Probiotic) Cap PO SCH ×2 (07:39→19:28)
[2020-06-06] MEDS: Zinc Sulfate 220 MG (50mg elemental Zinc) Cap PO SCH (07:39)
[2020-06-06] MEDS: BACLOFEN 10 MG PO SCH ×3 (07:40→19:27)
[2020-06-06] MEDS: OXYBUTYNIN 10 MG PO SCH (07:40)
[2020-06-06] MEDS: Fluticasone Propionate Nasal Spray 9.9 ML BOTTLE NASBOTH SCH ×2 (07:40→19:27)
[2020-06-06] MEDS: BIOFREEZE TOP SCH ×3 (07:41→19:30)
[2020-06-07] MEDS: BACLOFEN 10 MG PO SCH ×3 (07:49→19:12)
[2020-06-07] MEDS: OXYBUTYNIN 10 MG PO SCH (07:50)
[2020-06-07] MEDS: Cyanocobalamin (Vitamin B12) 250 MCG Tab PO SCH (07:50)
[2020-06-07] MEDS: Multivitamins with Iron/Calcium/Folic Acid/Minerals Tab PO SCH (07:50)
[2020-06-07] MEDS: Fluticasone Propionate Nasal Spray 9.9 ML BOTTLE NASBOTH SCH ×2 (07:50→19:12)
[2020-06-07] MEDS: Cholecalciferol (Vitamin D3) 25 MCG Tab PO SCH (07:50)
[2020-06-07] MEDS: Acetaminophen 325 MG Tab PO SCH ×2 (07:51→19:13)
[2020-06-07] MEDS: Lactobacillus Rhamnosus GG (Probiotic) Cap PO SCH ×2 (07:51→19:12)
[2020-06-07] MEDS: Ascorbic Acid 500 MG Tab PO SCH (07:51)
[2020-06-07] MEDS: BIOFREEZE TOP SCH ×3 (07:51→19:13)
[2020-06-07] MEDS: Zinc Sulfate 220 MG (50mg elemental Zinc) Cap PO SCH (07:51)
[2020-06-08] MEDS: Cyanocobalamin (Vitamin B12) 250 MCG Tab PO SCH (08:59)
[2020-06-08] MEDS: OXYBUTYNIN 10 MG PO SCH (08:59)
[2020-06-08] MEDS: Cholecalciferol (Vitamin D3) 25 MCG Tab PO SCH (08:59)
[2020-06-08] MEDS: BIOFREEZE TOP SCH ×3 (08:59→19:35)
[2020-06-08] MEDS: Zinc Sulfate 220 MG (50mg elemental Zinc) Cap PO SCH (08:59)
[2020-06-08] MEDS: Multivitamins with Iron/Calcium/Folic Acid/Minerals Tab PO SCH (08:59)
[2020-06-08] MEDS: BACLOFEN 10 MG PO SCH ×3 (08:59→19:35)
[2020-06-08] MEDS: Ascorbic Acid 500 MG Tab PO SCH (08:59)
[2020-06-08] MEDS: Lactobacillus Rhamnosus GG (Probiotic) Cap PO SCH ×2 (08:59→19:35)
[2020-06-08] MEDS: Fluticasone Propionate Nasal Spray 9.9 ML BOTTLE NASBOTH SCH ×2 (08:59→19:35)
[2020-06-08] MEDS: Acetaminophen 325 MG Tab PO SCH ×2 (09:00→19:35)
[2020-06-09] MEDS: Fluticasone Propionate Nasal Spray 9.9 ML BOTTLE NASBOTH SCH ×2 (07:53→20:09)
[2020-06-09] MEDS: OXYBUTYNIN 10 MG PO SCH (07:53)
[2020-06-09] MEDS: Cyanocobalamin (Vitamin B12) 250 MCG Tab PO SCH (07:54)
[2020-06-09] MEDS: Zinc Sulfate 220 MG (50mg elemental Zinc) Cap PO SCH (07:54)
[2020-06-09] MEDS: BACLOFEN 10 MG PO SCH ×3 (07:54→20:06)
[2020-06-09] MEDS: Multivitamins with Iron/Calcium/Folic Acid/Minerals Tab PO SCH (07:54)
[2020-06-09] MEDS: Lactobacillus Rhamnosus GG (Probiotic) Cap PO SCH ×2 (07:54→20:09)
[2020-06-09] MEDS: Cholecalciferol (Vitamin D3) 25 MCG Tab PO SCH (07:54)
[2020-06-09] MEDS: Ascorbic Acid 500 MG Tab PO SCH (07:54)
[2020-06-09] MEDS: Acetaminophen 325 MG Tab PO SCH ×2 (07:55→20:08)
[2020-06-09] MEDS: BIOFREEZE TOP SCH ×3 (07:56→20:07)
[2020-06-10] MEDS: Cyanocobalamin (Vitamin B12) 250 MCG Tab PO SCH (08:09)
[2020-06-10] MEDS: OXYBUTYNIN 10 MG PO SCH (08:09)
[2020-06-10] MEDS: Fluticasone Propionate Nasal Spray 9.9 ML BOTTLE NASBOTH SCH ×2 (08:09→19:47)
[2020-06-10] MEDS: BACLOFEN 10 MG PO SCH ×3 (08:09→19:47)
[2020-06-10] MEDS: Acetaminophen 325 MG Tab PO SCH ×2 (08:10→19:47)
[2020-06-10] MEDS: Ascorbic Acid 500 MG Tab PO SCH (08:10)
[2020-06-10] MEDS: Zinc Sulfate 220 MG (50mg elemental Zinc) Cap PO SCH (08:10)
[2020-06-10] MEDS: Lactobacillus Rhamnosus GG (Probiotic) Cap PO SCH ×2 (08:10→19:47)
[2020-06-10] MEDS: Multivitamins with Iron/Calcium/Folic Acid/Minerals Tab PO SCH (08:10)
[2020-06-10] MEDS: Cholecalciferol (Vitamin D3) 25 MCG Tab PO SCH (08:10)
[2020-06-10] MEDS: BIOFREEZE TOP SCH ×3 (08:11→19:47)
[2020-06-11] MEDS: Fluticasone Propionate Nasal Spray 9.9 ML BOTTLE NASBOTH SCH (07:31)
[2020-06-11] MEDS: OXYBUTYNIN 10 MG PO SCH (07:32)
[2020-06-11] MEDS: BACLOFEN 10 MG PO SCH ×3 (07:32→19:44)
[2020-06-11] MEDS: BIOFREEZE TOP SCH ×3 (07:32→19:45)
[2020-06-11] MEDS: Cholecalciferol (Vitamin D3) 25 MCG Tab PO SCH (07:33)
[2020-06-11] MEDS: Acetaminophen 325 MG Tab PO SCH ×2 (07:33→19:44)
[2020-06-11] MEDS: Cyanocobalamin (Vitamin B12) 250 MCG Tab PO SCH (07:33)
[2020-06-11] MEDS: Multivitamins with Iron/Calcium/Folic Acid/Minerals Tab PO SCH (07:33)
[2020-06-11] MEDS: Lactobacillus Rhamnosus GG (Probiotic) Cap PO SCH ×2 (07:33→19:44)
[2020-06-11] MEDS: Zinc Sulfate 220 MG (50mg elemental Zinc) Cap PO SCH (07:33)
[2020-06-11] MEDS: Ascorbic Acid 500 MG Tab PO SCH (07:34)
[2020-06-12] MEDS: OXYBUTYNIN 10 MG PO SCH (08:02)
[2020-06-12] MEDS: Zinc Sulfate 220 MG (50mg elemental Zinc) Cap PO SCH (08:03)
[2020-06-12] MEDS: Ascorbic Acid 500 MG Tab PO SCH (08:03)
[2020-06-12] MEDS: BACLOFEN 10 MG PO SCH ×3 (08:03→21:00)
[2020-06-12] MEDS: Lactobacillus Rhamnosus GG (Probiotic) Cap PO SCH ×2 (08:03→21:00)
[2020-06-12] MEDS: BIOFREEZE TOP SCH ×3 (08:03→21:00)
[2020-06-12] MEDS: Cholecalciferol (Vitamin D3) 25 MCG Tab PO SCH (08:03)
[2020-06-12] MEDS: Multivitamins with Iron/Calcium/Folic Acid/Minerals Tab PO SCH (08:04)
[2020-06-12] MEDS: Cyanocobalamin (Vitamin B12) 250 MCG Tab PO SCH (08:04)
[2020-06-12] MEDS: Acetaminophen 325 MG Tab PO SCH ×2 (08:04→21:00)
[2020-06-13] MEDS: BACLOFEN 10 MG PO SCH ×3 (08:27→19:54)
[2020-06-13] MEDS: OXYBUTYNIN 10 MG PO SCH (08:27)
[2020-06-13] MEDS: Acetaminophen 325 MG Tab PO SCH ×2 (08:28→19:54)
[2020-06-13] MEDS: Multivitamins with Iron/Calcium/Folic Acid/Minerals Tab PO SCH (08:28)
[2020-06-13] MEDS: Zinc Sulfate 220 MG (50mg elemental Zinc) Cap PO SCH (08:28)
[2020-06-13] MEDS: Cholecalciferol (Vitamin D3) 25 MCG Tab PO SCH (08:29)
[2020-06-13] MEDS: Lactobacillus Rhamnosus GG (Probiotic) Cap PO SCH ×2 (08:29→19:54)
[2020-06-13] MEDS: Cyanocobalamin (Vitamin B12) 250 MCG Tab PO SCH (08:29)
[2020-06-13] MEDS: Ascorbic Acid 500 MG Tab PO SCH (08:29)
[2020-06-13] MEDS: BIOFREEZE TOP SCH ×3 (08:29→19:55)
[2020-06-14] MEDS: Lactobacillus Rhamnosus GG (Probiotic) Cap PO SCH ×2 (09:46→20:00)
[2020-06-14] MEDS: Multivitamins with Iron/Calcium/Folic Acid/Minerals Tab PO SCH (09:46)
[2020-06-14] MEDS: OXYBUTYNIN 10 MG PO SCH (09:46)
[2020-06-14] MEDS: BACLOFEN 10 MG PO SCH ×3 (09:46→20:00)
[2020-06-14] MEDS: Acetaminophen 325 MG Tab PO SCH ×2 (09:47→20:01)
[2020-06-14] MEDS: Cyanocobalamin (Vitamin B12) 250 MCG Tab PO SCH (09:47)
[2020-06-14] MEDS: Ascorbic Acid 500 MG Tab PO SCH (09:47)
[2020-06-14] MEDS: Cholecalciferol (Vitamin D3) 25 MCG Tab PO SCH (09:47)
[2020-06-14] MEDS: Zinc Sulfate 220 MG (50mg elemental Zinc) Cap PO SCH (09:47)
[2020-06-14] MEDS: BIOFREEZE TOP SCH ×3 (09:48→20:01)
[2020-06-15] MEDS: Multivitamins with Iron/Calcium/Folic Acid/Minerals Tab PO SCH (09:11)
[2020-06-15] MEDS: Lactobacillus Rhamnosus GG (Probiotic) Cap PO SCH ×2 (09:11→19:43)
[2020-06-15] MEDS: Zinc Sulfate 220 MG (50mg elemental Zinc) Cap PO SCH (09:11)
[2020-06-15] MEDS: Cyanocobalamin (Vitamin B12) 250 MCG Tab PO SCH (09:11)
[2020-06-15] MEDS: Ascorbic Acid 500 MG Tab PO SCH (09:11)
[2020-06-15] MEDS: Cholecalciferol (Vitamin D3) 25 MCG Tab PO SCH (09:11)
[2020-06-15] MEDS: BACLOFEN 10 MG PO SCH ×3 (09:12→19:43)
[2020-06-15] MEDS: Acetaminophen 325 MG Tab PO SCH ×2 (09:12→19:44)
[2020-06-15] MEDS: OXYBUTYNIN 10 MG PO SCH (09:13)
[2020-06-15] MEDS: BIOFREEZE TOP SCH ×3 (09:13→19:45)
[2020-06-16] MEDS: BACLOFEN 10 MG PO SCH ×3 (08:17→19:56)
[2020-06-16] MEDS: Ascorbic Acid 500 MG Tab PO SCH (08:18)
[2020-06-16] MEDS: Cholecalciferol (Vitamin D3) 25 MCG Tab PO SCH (08:18)
[2020-06-16] MEDS: Lactobacillus Rhamnosus GG (Probiotic) Cap PO SCH ×2 (08:18→19:56)
[2020-06-16] MEDS: Acetaminophen 325 MG Tab PO SCH ×2 (08:18→19:56)
[2020-06-16] MEDS: Zinc Sulfate 220 MG (50mg elemental Zinc) Cap PO SCH (08:18)
[2020-06-16] MEDS: OXYBUTYNIN 10 MG PO SCH (08:18)
[2020-06-16] MEDS: BIOFREEZE TOP SCH ×3 (08:19→19:58)
[2020-06-16] MEDS: Cyanocobalamin (Vitamin B12) 250 MCG Tab PO SCH (08:19)
[2020-06-16] MEDS: Multivitamins with Iron/Calcium/Folic Acid/Minerals Tab PO SCH (08:20)
[2020-06-17] MEDS: BACLOFEN 10 MG PO SCH ×3 (07:48→19:33)
[2020-06-17] MEDS: OXYBUTYNIN 10 MG PO SCH (07:48)
[2020-06-17] MEDS: BIOFREEZE TOP SCH ×3 (07:49→19:35)
[2020-06-17] MEDS: Zinc Sulfate 220 MG (50mg elemental Zinc) Cap PO SCH (07:50)
[2020-06-17] MEDS: Lactobacillus Rhamnosus GG (Probiotic) Cap PO SCH ×2 (07:50→19:34)
[2020-06-17] MEDS: Cholecalciferol (Vitamin D3) 25 MCG Tab PO SCH (07:50)
[2020-06-17] MEDS: Multivitamins with Iron/Calcium/Folic Acid/Minerals Tab PO SCH (07:50)
[2020-06-17] MEDS: Cyanocobalamin (Vitamin B12) 250 MCG Tab PO SCH (07:50)
[2020-06-17] MEDS: Ascorbic Acid 500 MG Tab PO SCH (07:50)
[2020-06-17] MEDS: Acetaminophen 325 MG Tab PO SCH ×2 (07:50→19:34)
[2020-06-18] MEDS: BACLOFEN 10 MG PO SCH ×3 (08:17→20:02)
[2020-06-18] MEDS: BIOFREEZE TOP SCH ×3 (08:17→20:03)
[2020-06-18] MEDS: Multivitamins with Iron/Calcium/Folic Acid/Minerals Tab PO SCH (08:18)
[2020-06-18] MEDS: OXYBUTYNIN 10 MG PO SCH (08:18)
[2020-06-18] MEDS: Ascorbic Acid 500 MG Tab PO SCH (08:18)
[2020-06-18] MEDS: Lactobacillus Rhamnosus GG (Probiotic) Cap PO SCH ×2 (08:18→20:00)
[2020-06-18] MEDS: Cyanocobalamin (Vitamin B12) 250 MCG Tab PO SCH (08:18)
[2020-06-18] MEDS: Cholecalciferol (Vitamin D3) 25 MCG Tab PO SCH (08:18)
[2020-06-18] MEDS: Acetaminophen 325 MG Tab PO SCH ×2 (08:19→20:01)
[2020-06-18] MEDS: Zinc Sulfate 220 MG (50mg elemental Zinc) Cap PO SCH (08:19)
[2020-06-19] MEDS: Zinc Sulfate 220 MG (50mg elemental Zinc) Cap PO SCH (08:42)
[2020-06-19] MEDS: Lactobacillus Rhamnosus GG (Probiotic) Cap PO SCH ×2 (08:43→20:25)
[2020-06-19] MEDS: BACLOFEN 10 MG PO SCH ×3 (08:43→20:26)
[2020-06-19] MEDS: Cyanocobalamin (Vitamin B12) 250 MCG Tab PO SCH (08:43)
[2020-06-19] MEDS: Multivitamins with Iron/Calcium/Folic Acid/Minerals Tab PO SCH (08:44)
[2020-06-19] MEDS: Acetaminophen 325 MG Tab PO SCH ×2 (08:44→20:25)
[2020-06-19] MEDS: Ascorbic Acid 500 MG Tab PO SCH (08:44)
[2020-06-19] MEDS: OXYBUTYNIN 10 MG PO SCH (08:44)
[2020-06-19] MEDS: Cholecalciferol (Vitamin D3) 25 MCG Tab PO SCH (08:44)
[2020-06-19] MEDS: BIOFREEZE TOP SCH ×3 (08:51→20:30)
[2020-06-20] MEDS: BACLOFEN 10 MG PO SCH ×3 (09:31→20:36)
[2020-06-20] MEDS: OXYBUTYNIN 10 MG PO SCH (09:31)
[2020-06-20] MEDS: Acetaminophen 325 MG Tab PO SCH ×2 (09:32→20:39)
[2020-06-20] MEDS: Lactobacillus Rhamnosus GG (Probiotic) Cap PO SCH ×2 (09:32→20:38)
[2020-06-20] MEDS: Cholecalciferol (Vitamin D3) 25 MCG Tab PO SCH (09:32)
[2020-06-20] MEDS: Multivitamins with Iron/Calcium/Folic Acid/Minerals Tab PO SCH (09:32)
[2020-06-20] MEDS: BIOFREEZE TOP SCH ×3 (09:33→20:37)
[2020-06-20] MEDS: Zinc Sulfate 220 MG (50mg elemental Zinc) Cap PO SCH (09:33)
[2020-06-20] MEDS: Cyanocobalamin (Vitamin B12) 250 MCG Tab PO SCH (09:33)
[2020-06-20] MEDS: Ascorbic Acid 500 MG Tab PO SCH (09:33)
[2020-06-21] MEDS: BIOFREEZE TOP SCH ×3 (09:47→21:18)
[2020-06-21] MEDS: OXYBUTYNIN 10 MG PO SCH (09:48)
[2020-06-21] MEDS: BACLOFEN 10 MG PO SCH ×3 (09:48→21:18)
[2020-06-21] MEDS: Lactobacillus Rhamnosus GG (Probiotic) Cap PO SCH ×2 (09:49→21:18)
[2020-06-21] MEDS: Acetaminophen 325 MG Tab PO SCH ×2 (09:49→21:19)
[2020-06-21] MEDS: Cholecalciferol (Vitamin D3) 25 MCG Tab PO SCH (09:50)
[2020-06-21] MEDS: Ascorbic Acid 500 MG Tab PO SCH (09:50)
[2020-06-21] MEDS: Multivitamins with Iron/Calcium/Folic Acid/Minerals Tab PO SCH (09:50)
[2020-06-21] MEDS: Cyanocobalamin (Vitamin B12) 250 MCG Tab PO SCH (09:50)
[2020-06-21] MEDS: Zinc Sulfate 220 MG (50mg elemental Zinc) Cap PO SCH (09:51)
[2020-06-22] MEDS: BIOFREEZE TOP SCH ×3 (08:42→20:25)
[2020-06-22] MEDS: BACLOFEN 10 MG PO SCH ×3 (08:42→20:24)
[2020-06-22] MEDS: Acetaminophen 325 MG Tab PO SCH ×2 (08:43→20:26)
[2020-06-22] MEDS: Cyanocobalamin (Vitamin B12) 250 MCG Tab PO SCH (08:43)
[2020-06-22] MEDS: OXYBUTYNIN 10 MG PO SCH (08:43)
[2020-06-22] MEDS: Ascorbic Acid 500 MG Tab PO SCH (08:43)
[2020-06-22] MEDS: Lactobacillus Rhamnosus GG (Probiotic) Cap PO SCH ×2 (08:43→20:24)
[2020-06-22] MEDS: Cholecalciferol (Vitamin D3) 25 MCG Tab PO SCH (08:44)
[2020-06-22] MEDS: Multivitamins with Iron/Calcium/Folic Acid/Minerals Tab PO SCH (08:44)
[2020-06-22] MEDS: Zinc Sulfate 220 MG (50mg elemental Zinc) Cap PO SCH (08:44)
[2020-06-23] MEDS: OXYBUTYNIN 10 MG PO SCH (08:17)
[2020-06-23] MEDS: BACLOFEN 10 MG PO SCH ×3 (08:18→19:45)
[2020-06-23] MEDS: Acetaminophen 325 MG Tab PO SCH ×2 (08:18→19:47)
[2020-06-23] MEDS: BIOFREEZE TOP SCH ×3 (08:18→19:46)
[2020-06-23] MEDS: Cyanocobalamin (Vitamin B12) 250 MCG Tab PO SCH (08:18)
[2020-06-23] MEDS: Ascorbic Acid 500 MG Tab PO SCH (08:19)
[2020-06-23] MEDS: Cholecalciferol (Vitamin D3) 25 MCG Tab PO SCH (08:19)
[2020-06-23] MEDS: Multivitamins with Iron/Calcium/Folic Acid/Minerals Tab PO SCH (08:19)
[2020-06-23] MEDS: Lactobacillus Rhamnosus GG (Probiotic) Cap PO SCH ×2 (08:19→19:46)
[2020-06-23] MEDS: Zinc Sulfate 220 MG (50mg elemental Zinc) Cap PO SCH (08:19)
[2020-06-24] MEDS: OXYBUTYNIN 10 MG PO SCH (07:55)
[2020-06-24] MEDS: BACLOFEN 10 MG PO SCH ×3 (07:55→20:20)
[2020-06-24] MEDS: BIOFREEZE TOP SCH ×3 (07:55→20:21)
[2020-06-24] MEDS: Cyanocobalamin (Vitamin B12) 250 MCG Tab PO SCH (07:56)
[2020-06-24] MEDS: Multivitamins with Iron/Calcium/Folic Acid/Minerals Tab PO SCH (07:56)
[2020-06-24] MEDS: Acetaminophen 325 MG Tab PO SCH ×2 (07:56→20:20)
[2020-06-24] MEDS: Cholecalciferol (Vitamin D3) 25 MCG Tab PO SCH (07:56)
[2020-06-24] MEDS: Zinc Sulfate 220 MG (50mg elemental Zinc) Cap PO SCH (07:56)
[2020-06-24] MEDS: Lactobacillus Rhamnosus GG (Probiotic) Cap PO SCH ×2 (07:56→20:20)
[2020-06-24] MEDS: Ascorbic Acid 500 MG Tab PO SCH (07:56)
[2020-06-25] MEDS: Ascorbic Acid 500 MG Tab PO SCH (09:53)
[2020-06-25] MEDS: Multivitamins with Iron/Calcium/Folic Acid/Minerals Tab PO SCH (09:53)
[2020-06-25] MEDS: Cyanocobalamin (Vitamin B12) 250 MCG Tab PO SCH (09:53)
[2020-06-25] MEDS: Cholecalciferol (Vitamin D3) 25 MCG Tab PO SCH (09:54)
[2020-06-25] MEDS: Acetaminophen 325 MG Tab PO SCH ×2 (09:54→20:21)
[2020-06-25] MEDS: Zinc Sulfate 220 MG (50mg elemental Zinc) Cap PO SCH (09:54)
[2020-06-25] MEDS: Lactobacillus Rhamnosus GG (Probiotic) Cap PO SCH ×2 (09:54→20:20)
[2020-06-25] MEDS: BIOFREEZE TOP SCH ×3 (09:56→20:21)
[2020-06-25] MEDS: BACLOFEN 10 MG PO SCH ×3 (09:56→20:20)
[2020-06-25] MEDS: OXYBUTYNIN 10 MG PO SCH (09:57)
[2020-06-26] MEDS: OXYBUTYNIN 10 MG PO SCH (08:18)
[2020-06-26] MEDS: BIOFREEZE TOP SCH ×3 (08:19→19:46)
[2020-06-26] MEDS: BACLOFEN 10 MG PO SCH ×3 (08:19→19:44)
[2020-06-26] MEDS: Cyanocobalamin (Vitamin B12) 250 MCG Tab PO SCH (08:20)
[2020-06-26] MEDS: Multivitamins with Iron/Calcium/Folic Acid/Minerals Tab PO SCH (08:20)
[2020-06-26] MEDS: Cholecalciferol (Vitamin D3) 25 MCG Tab PO SCH (08:20)
[2020-06-26] MEDS: Lactobacillus Rhamnosus GG (Probiotic) Cap PO SCH ×2 (08:20→19:44)
[2020-06-26] MEDS: Acetaminophen 325 MG Tab PO SCH ×2 (08:20→19:45)
[2020-06-26] MEDS: Ascorbic Acid 500 MG Tab PO SCH (08:20)
[2020-06-26] MEDS: Zinc Sulfate 220 MG (50mg elemental Zinc) Cap PO SCH (08:21)
--- NOTE | 2020-06-26 11:15 | PCM.PN ---
- General Info Date of Service: 06/26/20 Subjective Update: 45 yo male seen today for swing bed follow-up. He states he is doing well. He is working on paperwork for the apartment in [place] and is hopeful to be able to d/c soon. His wound continues to be minimal at this point. He did have an ingrown toenail and the toenail was removed by nursing. This was about a week ago and he notes it is looking/feeling better. He has had no fever or chills. He denies any musculoskeletal pain. His oxybutynin is working well for his bladder. No recent urinary symptoms/issues. Suprapubic catheter is working. - Review of Systems General: Reports: No Symptoms HEENT: Reports: No Symptoms Pulmonary: Reports: No Symptoms Cardiovascular: Reports: No Symptoms Gastrointestinal: Reports: No Symptoms Genitourinary: Reports: No Symptoms Musculoskeletal: Reports: Other (toe pain) Skin: Reports: No Symptoms Neurological: Reports: No Symptoms Psychiatric: Reports: No Symptoms - Patient Data Vitals - Most Recent: Last Vital Signs Temp 36.2 C 06/26/20 06:00 Pulse 81 06/26/20 06:00 Resp 18 06/26/20 06:00 BP 121/77 06/26/20 06:00 Pulse Ox 99 06/26/20 06:00 Weight - Most Recent: 142.428 kg I&O - Last 24 Hours: Intake & Output 06/25/20 06/26/20 06/26/20 22:59 06:59 14:59 Intake Total 500 600 600 Output Total 3100 2000 Balance -2600 -1400 600 Med Orders - Current: Current Medications Acetaminophen (Acetaminophen 325 Mg Tab) 650 mg PO BID [facility] Last Admin: 06/26/20 08:20 Dose: 650 mg Documented by: Acetaminophen (Tylenol) 650 mg PO Q6H PRN PRN Reason: Pain Last Admin: 03/19/20 06:34 Dose: 650 mg Documented by: Ascorbic Acid (Ascorbic Acid 500 Mg Tab) 500 mg PO DAILY [facility] Last Admin: 06/26/20 08:20 Dose: 500 mg Documented by: Baclofen (Lioresal) 5 mg PO TID [facility] Last Admin: 06/26/20 08:19 Dose: 5 mg Documented by: Cholecalciferol (Cholecalciferol (Vitamin D3) 25 Mcg Tab) 100 mcg PO DAILY [facility] Last Admin: 06/26/20 08:20 Dose: 100 mcg Documented by: Cyanocobalamin (Cyanocobalamin (Vitamin B12) 250 Mcg Tab) 500 mcg PO DAILY [facility] Last Admin: 06/26/20 08:20 Dose: 500 mcg Documented by: Fluticasone Propionate (Fluticasone Propionate) 0.33 ml NASBOTH BID [facility] Last Admin: 06/26/20 08:19 Dose: 1 spray Documented by: Lactobacillus Rhamnosus (Lactobacillus Rhamnosus Gg (Probiotic) Cap) 1 cap PO BID@0800,1999 [facility] Last Admin: 06/26/20 08:20 Dose: 1 cap Documented by: Miconazole (Desenex 2%) 0 gm TOP BID PRN PRN Reason: Rash Last Admin: 12/20/19 20:53 Dose: 1 applic Documented by: Multivitamins/Minerals (Multivitamins With Iron/Calcium/Folic Acid/Minerals Tab) 1 tab PO DAILY [facility] Last Admin: 06/26/20 08:20 Dose: 1 tab Documented by: Oxybutynin.Er 10mg ( (Own Supply)) 1 each PO DAILY [facility] Last Admin: 06/26/20 08:18 Dose: 1 each Documented by: Biofreeze Topical * (Pt Own Med*) 0 each TOP TID [facility] Last Admin: 06/26/20 08:19 Dose: 1 each Documented by: Senna/Docusate Sodium (Senna Plus) 2 tab PO BEDTIME PRN PRN Reason: Constipation Last Admin: 06/22/20 20:31 Dose: 2 tab Documented by: Zinc Sulfate (Zinc Sulfate 220 Mg (50mg Elemental Zinc) Cap) 220 mg PO DAILY [facility] Last Admin: 06/26/20 08:21 Dose: 220 mg Documented by: Discontinued Medications Alteplase, Recombinant (Cathflo Activase) 2 mg IVPUSH ONETIME ONE Stop: 10/23/19 12:45 Last Admin: 10/23/19 13:30 Dose: 2 mg Documented by: Baclofen (Lioresal) 5 mg PO TID [facility] Last Admin: 01/27/20 08:23 Dose: 5 mg Documented by: Baclofen (Lioresal) 5 mg PO TID [facility] Stop: 11/21/19 20:00 Last Admin: 11/21/19 19:52 Dose: 5 mg Documented by: Carbamide Perox/Anhydrous Glycerin (Debrox 6.5% Otic Soln) 0.25 ml EARLF BID [facility] Stop: 05/05/20 08:00 Last Admin: 05/05/20 07:23 Dose: 1 drop Documented by: Clindamycin HCl (Cleocin) 150 mg PO TID [facility] Stop: 12/28/19 20:01 Last Admin: 12/19/19 09:26 Dose: 150 mg Documented by: Clindamycin HCl (Cleocin) 150 mg PO TID [facility] Stop: 12/28/19 20:01 Last Admin: 12/28/19 21:15 Dose: Not Given Documented by: Clindamycin HCl (Cleocin) 150 mg PO ONETIME ONE Stop: 12/28/19 21:31 Last Admin: 12/28/19 21:34 Dose: 150 mg Documented by: Fluticasone Propionate (Fluticasone Propionate) 0 ml NASBOTH BID [facility] Last Admin: 01/24/20 09:13 Dose: 1 ml Documented by: Fluticasone Propionate (Fluticasone Propionate) 0.33 ml NASBOTH BID [facility] Last Admin: 06/11/20 07:31 Dose: 1 spray Documented by: Fluticasone Propionate (Flonase) 0 gm NASBOTH BID [facility] Stop: 11/21/19 20:01 Last Admin: 11/21/19 19:51 Dose: 1 spray Documented by: Fluticasone Propionate (Flonase) 0 gm NASBOTH BID [facility] Last Admin: 01/09/20 09:39 Dose: Not Given Documented by: Heparin Sodium (Porcine) (Heparin Lock Flush 100 Units/Ml) 300 unit FLUSH ASDIRECTED PRN PRN Reason: Keep Vein Open Last Admin: 11/27/19 06:45 Dose: 300 unit Documented by: Heparin Sodium (Porcine) (Heparin Lock Flush 100 Units/Ml) 300 unit FLUSH Q8H [facility] Stop: 11/25/19 23:59 Last Admin: 11/18/19 19:25 Dose: Not Given Documented by: Heparin Sodium (Porcine) (Heparin Lock Flush 100 Units/Ml) 300 unit FLUSH Q8H [facility] Stop: 11/25/19 23:59 Last Admin: 11/25/19 20:08 Dose: 300 unit Documented by: Piperacillin Sod/Tazobactam (Sod 4.5 gm/ Sodium Chloride) 100 mls @ 25 mls/hr IV Q8H [facility] Stop: 11/25/19 23:58 Last Admin: 11/18/19 09:46 Dose: Not Given Documented by: Piperacillin Sod/Tazobactam (Sod 4.5 gm/ Sodium Chloride) 100 mls @ 200 mls/hr IV ONETIME ONE Stop: 11/18/19 15:29 Last Admin: 11/18/19 15:07 Dose: 200 mls/hr Documented by: Piperacillin Sod/Tazobactam (Sod 4.5 gm/ Sodium Chloride) 100 mls @ 25 mls/hr IV Q8H [facility] Stop: 11/25/19 23:58 Last Admin: 11/25/19 23:20 Dose: 25 mls/hr Documented by: Lactobacillus Rhamnosus (Culturelle) 1 cap PO DAILY [facility] Last Admin: 12/20/19 09:12 Dose: 1 cap Documented by: Lactobacillus Rhamnosus (Culturelle) 1 cap PO BID@1000,2200 [facility] Stop: 01/11/20 22:01 Last Admin: 12/30/19 08:17 Dose: 1 cap Documented by: Clindamycin 300mg (Cap (Own Supply)) 1 each PO BID [facility] Stop: 03/22/20 08:01 Last Admin: 03/22/20 08:16 Dose: 1 each Documented by: Oxybutynin Chloride (Oxybutynin Er) 5 mg PO DAILY [facility] Last Admin: 04/22/20 08:49 Dose: 5 mg Documented by: Oxybutynin Chloride (Oxybutynin Er) 10 mg PO DAILY [facility] Stop: 05/02/20 08:01 Last Admin: 05/02/20 09:08 Dose: 10 mg Documented by: Oxybutynin Chloride (Oxybutynin Er) 5 mg PO ONETIME ONE Stop: 04/22/20 12:31 Last Admin: 04/22/20 13:43 Dose: 5 mg Documented by: Sodium Bicarbonate (Sodium Bicarbonate 8.4%) Confirm Administered Dose 50 meq .ROUTE .STK-MED ONE Stop: 11/02/19 12:42 Last Admin: 11/02/19 13:28 Dose: Not Given Documented by: Sodium Chloride (Saline Flush) 10 ml IV ASDIRECTED PRN PRN Reason: Keep Vein Open Last Admin: 11/27/19 06:45 Dose: 10 ml Documented by: Zinc Gluconate (Zinc) 50 mg PO DAILY [facility] Last Admin: 03/19/20 11:20 Dose: Not Given Documented by: - Exam General: Alert, Oriented, Cooperative, No Acute Distress HEENT: Mucous Membr. Moist/[place] Neck: Supple, Trachea Midline, No Thyromegaly. No: Lymphadenopathy Lungs: Clear to Auscultation, Normal Respiratory Effort Cardiovascular: Regular Rate, Regular Rhythm, No Murmurs GI/Abdominal Exam: Normal Bowel Sounds, Soft, Non-Tender, No Organomegaly, No Distention, No Mass Extremities: Non-Tender, No Pedal Edema, Normal Capillary Refill, Other (toenail absent left great toe - still has some edema but no erythema or warmth) Peripheral Pulses: 2+: Radial (L), Radial (R) Skin: Warm, Dry Neurological: No New Focal Deficit - Patient Data Result Diagrams: 11/27/19 06:44 11/27/19 06:44 Sepsis Event Note - Evaluation Sepsis Screening Result: No Definite Risk - Focused Exam Vital Signs: Vital Signs Temp Pulse Resp BP Pulse Ox 06/26/20 06:00 36.2 C 81 18 121/77 99 - Problem List & Annotations (1) Sacral decubitus ulcer SNOMED Code(s): 139363853 Code(s): L89.159 - PRESSURE ULCER OF SACRAL REGION, UNSPECIFIED STAGE Status: Acute Current Visit: No Qualifiers: Pressure injury stage: unspecified pressure injury stage Qualified Code(s): L89.159 - Pressure ulcer of sacral region, unspecified stage (2) Chronic sinusitis SNOMED Code(s): 72214967 Code(s): J32.9 - CHRONIC SINUSITIS, UNSPECIFIED Status: Chronic Current Visit: No (3) Constipation SNOMED Code(s): 21857664 Code(s): K59.00 - CONSTIPATION, UNSPECIFIED Status: Chronic Current Visit: No (4) Hypertension SNOMED Code(s): 25363757 Code(s): I10 - ESSENTIAL (PRIMARY) HYPERTENSION Status: Chronic Current Visit: No (5) Multiple sclerosis SNOMED Code(s): 16700625 Code(s): G35 - MULTIPLE SCLEROSIS Status: Chronic Current Visit: No (6) Neurogenic bladder SNOMED Code(s): 523374015 Code(s): N31.9 - NEUROMUSCULAR DYSFUNCTION OF BLADDER, UNSPECIFIED Status: Chronic Current Visit: No (7) Adjustment disorder SNOMED Code(s): 11492909 Code(s): F43.20 - ADJUSTMENT DISORDER, UNSPECIFIED Status: Acute Current Visit: No Qualifiers: Adjustment disorder type: with depressed mood Qualified Code(s): F43.21 - Adjustment disorder with depressed mood (8) Squamous cell carcinoma SNOMED Code(s): 126770696 Code(s): TIU9726 - Status: Acute Current Visit: Yes - Problem List Review Problem List Initiated/Reviewed/Updated: Yes - Assessment Assessment:: 44 yo male on assisted swing bed initially for wound cares related to a sacral pressure ulcer, now related to disposition planning. Wound is healed. - Plan Plan:: #1 Sacral decubitus ulcer - Wound is now essentially healed. He has not had any osteomyelitis for quite some time. - Wound clinic follow-ups no longer needed. #2 Chronic sinusitis #3 Constipation #4 Hypertension #5 MS - Continue current medications and neurology follow-ups as scheduled. #6 Neurogenic bladder - Suprapubic catheter is working well. - Continue oxybutynin. #7 Adjustment disorder - Mood remains good. #8 SCC - Has completed. Follow-up as recommended by dermatology. Patient is admitted to swing bed - wound is resolved. He will remain on swing bed until an appropriate alternative living environment is available for him. Case management continues to actively work on this. Code status is DNR/DNI - discussed on admission. No indication for VTE prophylaxis as he is at his usual functional baseline.
[2020-06-27] MEDS: BIOFREEZE TOP SCH ×3 (07:41→19:47)
[2020-06-27] MEDS: Cholecalciferol (Vitamin D3) 25 MCG Tab PO SCH (07:42)
[2020-06-27] MEDS: Ascorbic Acid 500 MG Tab PO SCH (07:42)
[2020-06-27] MEDS: Zinc Sulfate 220 MG (50mg elemental Zinc) Cap PO SCH (07:42)
[2020-06-27] MEDS: Lactobacillus Rhamnosus GG (Probiotic) Cap PO SCH ×2 (07:42→19:46)
[2020-06-27] MEDS: Cyanocobalamin (Vitamin B12) 250 MCG Tab PO SCH (07:42)
[2020-06-27] MEDS: Acetaminophen 325 MG Tab PO SCH ×2 (07:42→19:48)
[2020-06-27] MEDS: OXYBUTYNIN 10 MG PO SCH (07:43)
[2020-06-27] MEDS: BACLOFEN 10 MG PO SCH ×3 (07:43→19:46)
[2020-06-27] MEDS: Multivitamins with Iron/Calcium/Folic Acid/Minerals Tab PO SCH (07:43)
[2020-06-28] MEDS: BACLOFEN 10 MG PO SCH ×3 (07:49→20:17)
[2020-06-28] MEDS: BIOFREEZE TOP SCH ×3 (07:50→21:35)
[2020-06-28] MEDS: OXYBUTYNIN 10 MG PO SCH (07:50)
[2020-06-28] MEDS: Ascorbic Acid 500 MG Tab PO SCH (07:51)
[2020-06-28] MEDS: Cholecalciferol (Vitamin D3) 25 MCG Tab PO SCH (07:51)
[2020-06-28] MEDS: Lactobacillus Rhamnosus GG (Probiotic) Cap PO SCH ×2 (07:51→20:17)
[2020-06-28] MEDS: Acetaminophen 325 MG Tab PO SCH ×2 (07:51→20:17)
[2020-06-28] MEDS: Cyanocobalamin (Vitamin B12) 250 MCG Tab PO SCH (07:51)
[2020-06-28] MEDS: Multivitamins with Iron/Calcium/Folic Acid/Minerals Tab PO SCH (07:51)
[2020-06-28] MEDS: Zinc Sulfate 220 MG (50mg elemental Zinc) Cap PO SCH (07:51)
[2020-06-29] MEDS: BIOFREEZE TOP SCH ×3 (08:18→19:49)
[2020-06-29] MEDS: OXYBUTYNIN 10 MG PO SCH (08:19)
[2020-06-29] MEDS: BACLOFEN 10 MG PO SCH ×3 (08:19→19:50)
[2020-06-29] MEDS: Cyanocobalamin (Vitamin B12) 250 MCG Tab PO SCH (08:20)
[2020-06-29] MEDS: Lactobacillus Rhamnosus GG (Probiotic) Cap PO SCH ×2 (08:20→19:49)
[2020-06-29] MEDS: Zinc Sulfate 220 MG (50mg elemental Zinc) Cap PO SCH (08:20)
[2020-06-29] MEDS: Cholecalciferol (Vitamin D3) 25 MCG Tab PO SCH (08:20)
[2020-06-29] MEDS: Ascorbic Acid 500 MG Tab PO SCH (08:20)
[2020-06-29] MEDS: Acetaminophen 325 MG Tab PO SCH ×2 (08:20→19:50)
[2020-06-29] MEDS: Multivitamins with Iron/Calcium/Folic Acid/Minerals Tab PO SCH (08:21)
[2020-06-30] MEDS: Lactobacillus Rhamnosus GG (Probiotic) Cap PO SCH ×2 (07:42→19:41)
[2020-06-30] MEDS: Cholecalciferol (Vitamin D3) 25 MCG Tab PO SCH (07:42)
[2020-06-30] MEDS: BACLOFEN 10 MG PO SCH ×3 (07:42→19:40)
[2020-06-30] MEDS: OXYBUTYNIN 10 MG PO SCH (07:42)
[2020-06-30] MEDS: Cyanocobalamin (Vitamin B12) 250 MCG Tab PO SCH (07:43)
[2020-06-30] MEDS: Multivitamins with Iron/Calcium/Folic Acid/Minerals Tab PO SCH (07:43)
[2020-06-30] MEDS: Ascorbic Acid 500 MG Tab PO SCH (07:43)
[2020-06-30] MEDS: Zinc Sulfate 220 MG (50mg elemental Zinc) Cap PO SCH (07:43)
[2020-06-30] MEDS: Acetaminophen 325 MG Tab PO SCH ×2 (07:43→19:40)
[2020-06-30] MEDS: BIOFREEZE TOP SCH ×3 (07:44→19:40)
[2020-07-01] MEDS: Cholecalciferol (Vitamin D3) 25 MCG Tab PO SCH (07:27)
[2020-07-01] MEDS: Zinc Sulfate 220 MG (50mg elemental Zinc) Cap PO SCH (07:28)
[2020-07-01] MEDS: Ascorbic Acid 500 MG Tab PO SCH (07:28)
[2020-07-01] MEDS: Acetaminophen 325 MG Tab PO SCH ×2 (07:28→20:07)
[2020-07-01] MEDS: Cyanocobalamin (Vitamin B12) 250 MCG Tab PO SCH (07:28)
[2020-07-01] MEDS: Multivitamins with Iron/Calcium/Folic Acid/Minerals Tab PO SCH (07:28)
[2020-07-01] MEDS: Lactobacillus Rhamnosus GG (Probiotic) Cap PO SCH ×2 (07:28→20:06)
[2020-07-01] MEDS: BACLOFEN 10 MG PO SCH ×3 (07:28→20:07)
[2020-07-01] MEDS: OXYBUTYNIN 10 MG PO SCH (07:29)
[2020-07-01] MEDS: BIOFREEZE TOP SCH ×3 (07:30→20:08)
[2020-07-02] MEDS: Cyanocobalamin (Vitamin B12) 250 MCG Tab PO SCH (07:30)
[2020-07-02] MEDS: BACLOFEN 10 MG PO SCH ×3 (07:30→20:49)
[2020-07-02] MEDS: Cholecalciferol (Vitamin D3) 25 MCG Tab PO SCH (07:30)
[2020-07-02] MEDS: Ascorbic Acid 500 MG Tab PO SCH (07:30)
[2020-07-02] MEDS: OXYBUTYNIN 10 MG PO SCH (07:30)
[2020-07-02] MEDS: Multivitamins with Iron/Calcium/Folic Acid/Minerals Tab PO SCH (07:31)
[2020-07-02] MEDS: Acetaminophen 325 MG Tab PO SCH ×2 (07:31→20:49)
[2020-07-02] MEDS: Zinc Sulfate 220 MG (50mg elemental Zinc) Cap PO SCH (07:31)
[2020-07-02] MEDS: BIOFREEZE TOP SCH ×3 (07:31→20:47)
[2020-07-02] MEDS: Lactobacillus Rhamnosus GG (Probiotic) Cap PO SCH ×2 (07:31→20:47)
[2020-07-03] MEDS: OXYBUTYNIN 10 MG PO SCH (08:17)
[2020-07-03] MEDS: BACLOFEN 10 MG PO SCH ×3 (08:17→20:27)
[2020-07-03] MEDS: Cholecalciferol (Vitamin D3) 25 MCG Tab PO SCH (08:18)
[2020-07-03] MEDS: BIOFREEZE TOP SCH ×3 (08:18→20:28)
[2020-07-03] MEDS: Ascorbic Acid 500 MG Tab PO SCH (08:18)
[2020-07-03] MEDS: Zinc Sulfate 220 MG (50mg elemental Zinc) Cap PO SCH (08:18)
[2020-07-03] MEDS: Acetaminophen 325 MG Tab PO SCH ×2 (08:19→20:29)
[2020-07-03] MEDS: Multivitamins with Iron/Calcium/Folic Acid/Minerals Tab PO SCH (08:19)
[2020-07-03] MEDS: Lactobacillus Rhamnosus GG (Probiotic) Cap PO SCH ×2 (08:22→20:28)
[2020-07-03] MEDS: Cyanocobalamin (Vitamin B12) 250 MCG Tab PO SCH (08:22)
[2020-07-04] MEDS: OXYBUTYNIN 10 MG PO SCH (07:29)
[2020-07-04] MEDS: BACLOFEN 10 MG PO SCH ×3 (07:29→19:29)
[2020-07-04] MEDS: Cholecalciferol (Vitamin D3) 25 MCG Tab PO SCH (07:30)
[2020-07-04] MEDS: Multivitamins with Iron/Calcium/Folic Acid/Minerals Tab PO SCH (07:30)
[2020-07-04] MEDS: Lactobacillus Rhamnosus GG (Probiotic) Cap PO SCH ×2 (07:30→19:29)
[2020-07-04] MEDS: Ascorbic Acid 500 MG Tab PO SCH (07:30)
[2020-07-04] MEDS: Cyanocobalamin (Vitamin B12) 250 MCG Tab PO SCH (07:30)
[2020-07-04] MEDS: Acetaminophen 325 MG Tab PO SCH ×2 (07:30→19:29)
[2020-07-04] MEDS: Zinc Sulfate 220 MG (50mg elemental Zinc) Cap PO SCH (07:30)
[2020-07-04] MEDS: BIOFREEZE TOP SCH ×3 (07:32→19:30)
[2020-07-05] MEDS: Acetaminophen 325 MG Tab PO SCH ×2 (07:28→19:47)
[2020-07-05] MEDS: Zinc Sulfate 220 MG (50mg elemental Zinc) Cap PO SCH (07:28)
[2020-07-05] MEDS: Multivitamins with Iron/Calcium/Folic Acid/Minerals Tab PO SCH (07:28)
[2020-07-05] MEDS: Lactobacillus Rhamnosus GG (Probiotic) Cap PO SCH ×2 (07:28→19:46)
[2020-07-05] MEDS: Cholecalciferol (Vitamin D3) 25 MCG Tab PO SCH (07:28)
[2020-07-05] MEDS: Ascorbic Acid 500 MG Tab PO SCH (07:28)
[2020-07-05] MEDS: BACLOFEN 10 MG PO SCH ×3 (07:29→19:48)
[2020-07-05] MEDS: OXYBUTYNIN 10 MG PO SCH (07:29)
[2020-07-05] MEDS: BIOFREEZE TOP SCH ×3 (07:30→19:48)
[2020-07-05] MEDS: Cyanocobalamin (Vitamin B12) 250 MCG Tab PO SCH (07:30)
[2020-07-06] MEDS: Lactobacillus Rhamnosus GG (Probiotic) Cap PO SCH ×2 (07:59→19:42)
[2020-07-06] MEDS: BACLOFEN 10 MG PO SCH ×3 (08:01→19:41)
[2020-07-06] MEDS: OXYBUTYNIN 10 MG PO SCH (08:01)
[2020-07-06] MEDS: Multivitamins with Iron/Calcium/Folic Acid/Minerals Tab PO SCH (08:03)
[2020-07-06] MEDS: Acetaminophen 325 MG Tab PO SCH ×2 (08:04→19:42)
[2020-07-06] MEDS: Cyanocobalamin (Vitamin B12) 250 MCG Tab PO SCH (08:06)
[2020-07-06] MEDS: Ascorbic Acid 500 MG Tab PO SCH (08:06)
[2020-07-06] MEDS: Cholecalciferol (Vitamin D3) 25 MCG Tab PO SCH (08:07)
[2020-07-06] MEDS: Zinc Sulfate 220 MG (50mg elemental Zinc) Cap PO SCH (08:08)
[2020-07-06] MEDS: BIOFREEZE TOP SCH ×3 (08:10→19:43)
[2020-07-07] MEDS: OXYBUTYNIN 10 MG PO SCH (07:29)
[2020-07-07] MEDS: BIOFREEZE TOP SCH ×2 (07:29→11:49)
[2020-07-07] MEDS: BACLOFEN 10 MG PO SCH ×3 (07:29→19:39)
[2020-07-07] MEDS: Zinc Sulfate 220 MG (50mg elemental Zinc) Cap PO SCH (07:30)
[2020-07-07] MEDS: Multivitamins with Iron/Calcium/Folic Acid/Minerals Tab PO SCH (07:30)
[2020-07-07] MEDS: Acetaminophen 325 MG Tab PO SCH ×2 (07:30→19:41)
[2020-07-07] MEDS: Cholecalciferol (Vitamin D3) 25 MCG Tab PO SCH (07:30)
[2020-07-07] MEDS: Cyanocobalamin (Vitamin B12) 250 MCG Tab PO SCH (07:30)
[2020-07-07] MEDS: Lactobacillus Rhamnosus GG (Probiotic) Cap PO SCH ×2 (07:30→19:40)
[2020-07-07] MEDS: Ascorbic Acid 500 MG Tab PO SCH (07:31)
[2020-07-08] MEDS: BIOFREEZE TOP SCH ×4 (07:28→19:23)
[2020-07-08] MEDS: OXYBUTYNIN 10 MG PO SCH (07:58)
[2020-07-08] MEDS: BACLOFEN 10 MG PO SCH ×3 (07:58→19:24)
[2020-07-08] MEDS: Acetaminophen 325 MG Tab PO SCH ×2 (07:59→19:22)
[2020-07-08] MEDS: Lactobacillus Rhamnosus GG (Probiotic) Cap PO SCH ×2 (08:00→19:22)
[2020-07-08] MEDS: Zinc Sulfate 220 MG (50mg elemental Zinc) Cap PO SCH (08:00)
[2020-07-08] MEDS: Multivitamins with Iron/Calcium/Folic Acid/Minerals Tab PO SCH (08:00)
[2020-07-08] MEDS: Ascorbic Acid 500 MG Tab PO SCH (08:00)
[2020-07-08] MEDS: Cholecalciferol (Vitamin D3) 25 MCG Tab PO SCH (08:00)
[2020-07-08] MEDS: Cyanocobalamin (Vitamin B12) 250 MCG Tab PO SCH (08:00)
[2020-07-09] MEDS: BACLOFEN 10 MG PO SCH ×3 (07:32→19:51)
[2020-07-09] MEDS: OXYBUTYNIN 10 MG PO SCH (07:32)
[2020-07-09] MEDS: BIOFREEZE TOP SCH ×3 (07:33→19:51)
[2020-07-09] MEDS: Cholecalciferol (Vitamin D3) 25 MCG Tab PO SCH (07:33)
[2020-07-09] MEDS: Acetaminophen 325 MG Tab PO SCH ×2 (07:33→19:51)
[2020-07-09] MEDS: Multivitamins with Iron/Calcium/Folic Acid/Minerals Tab PO SCH (07:34)
[2020-07-09] MEDS: Lactobacillus Rhamnosus GG (Probiotic) Cap PO SCH ×2 (07:34→19:52)
[2020-07-09] MEDS: Ascorbic Acid 500 MG Tab PO SCH (07:34)
[2020-07-09] MEDS: Zinc Sulfate 220 MG (50mg elemental Zinc) Cap PO SCH (07:34)
[2020-07-09] MEDS: Cyanocobalamin (Vitamin B12) 250 MCG Tab PO SCH (07:34)
[2020-07-10] MEDS: OXYBUTYNIN 10 MG PO SCH (08:32)
[2020-07-10] MEDS: BACLOFEN 10 MG PO SCH ×3 (08:32→19:54)
[2020-07-10] MEDS: Acetaminophen 325 MG Tab PO SCH ×2 (08:32→19:54)
[2020-07-10] MEDS: Multivitamins with Iron/Calcium/Folic Acid/Minerals Tab PO SCH (08:33)
[2020-07-10] MEDS: Lactobacillus Rhamnosus GG (Probiotic) Cap PO SCH ×2 (08:33→19:54)
[2020-07-10] MEDS: Zinc Sulfate 220 MG (50mg elemental Zinc) Cap PO SCH (08:33)
[2020-07-10] MEDS: Ascorbic Acid 500 MG Tab PO SCH (08:33)
[2020-07-10] MEDS: Cholecalciferol (Vitamin D3) 25 MCG Tab PO SCH (08:33)
[2020-07-10] MEDS: Cyanocobalamin (Vitamin B12) 250 MCG Tab PO SCH (08:33)
[2020-07-10] MEDS: BIOFREEZE TOP SCH ×3 (08:37→19:53)
[2020-07-11] MEDS: BACLOFEN 10 MG PO SCH ×3 (07:27→20:43)
[2020-07-11] MEDS: OXYBUTYNIN 10 MG PO SCH (07:28)
[2020-07-11] MEDS: Lactobacillus Rhamnosus GG (Probiotic) Cap PO SCH ×2 (07:28→19:38)
[2020-07-11] MEDS: Multivitamins with Iron/Calcium/Folic Acid/Minerals Tab PO SCH (07:28)
[2020-07-11] MEDS: Zinc Sulfate 220 MG (50mg elemental Zinc) Cap PO SCH (07:28)
[2020-07-11] MEDS: Acetaminophen 325 MG Tab PO SCH ×2 (07:28→19:38)
[2020-07-11] MEDS: Ascorbic Acid 500 MG Tab PO SCH (07:28)
[2020-07-11] MEDS: Cholecalciferol (Vitamin D3) 25 MCG Tab PO SCH (07:28)
[2020-07-11] MEDS: Cyanocobalamin (Vitamin B12) 250 MCG Tab PO SCH (07:28)
[2020-07-11] MEDS: BIOFREEZE TOP SCH ×3 (07:29→19:37)
[2020-07-12] MEDS: Acetaminophen 325 MG Tab PO SCH ×2 (07:49→19:39)
[2020-07-12] MEDS: BACLOFEN 10 MG PO SCH ×3 (07:49→19:39)
[2020-07-12] MEDS: Multivitamins with Iron/Calcium/Folic Acid/Minerals Tab PO SCH (07:49)
[2020-07-12] MEDS: OXYBUTYNIN 10 MG PO SCH (07:49)
[2020-07-12] MEDS: Cyanocobalamin (Vitamin B12) 250 MCG Tab PO SCH (07:49)
[2020-07-12] MEDS: Ascorbic Acid 500 MG Tab PO SCH (07:49)
[2020-07-12] MEDS: Cholecalciferol (Vitamin D3) 25 MCG Tab PO SCH (07:49)
[2020-07-12] MEDS: Zinc Sulfate 220 MG (50mg elemental Zinc) Cap PO SCH (07:49)
[2020-07-12] MEDS: Lactobacillus Rhamnosus GG (Probiotic) Cap PO SCH ×2 (07:50→19:39)
[2020-07-12] MEDS: BIOFREEZE TOP SCH ×3 (07:50→19:39)
[2020-07-13] MEDS: OXYBUTYNIN 10 MG PO SCH (08:05)
[2020-07-13] MEDS: Zinc Sulfate 220 MG (50mg elemental Zinc) Cap PO SCH (08:06)
[2020-07-13] MEDS: Cholecalciferol (Vitamin D3) 25 MCG Tab PO SCH (08:06)
[2020-07-13] MEDS: Lactobacillus Rhamnosus GG (Probiotic) Cap PO SCH ×2 (08:06→19:46)
[2020-07-13] MEDS: Acetaminophen 325 MG Tab PO SCH ×2 (08:06→19:46)
[2020-07-13] MEDS: BACLOFEN 10 MG PO SCH ×3 (08:06→19:46)
[2020-07-13] MEDS: Ascorbic Acid 500 MG Tab PO SCH (08:06)
[2020-07-13] MEDS: Cyanocobalamin (Vitamin B12) 250 MCG Tab PO SCH (08:06)
[2020-07-13] MEDS: Multivitamins with Iron/Calcium/Folic Acid/Minerals Tab PO SCH (08:06)
[2020-07-13] MEDS: BIOFREEZE TOP SCH ×3 (08:07→19:46)
[2020-07-14] MEDS: Cholecalciferol (Vitamin D3) 25 MCG Tab PO SCH (08:02)
[2020-07-14] MEDS: Multivitamins with Iron/Calcium/Folic Acid/Minerals Tab PO SCH (08:02)
[2020-07-14] MEDS: Lactobacillus Rhamnosus GG (Probiotic) Cap PO SCH ×2 (08:02→19:53)
[2020-07-14] MEDS: Acetaminophen 325 MG Tab PO SCH ×2 (08:04→19:53)
[2020-07-14] MEDS: Ascorbic Acid 500 MG Tab PO SCH (08:04)
[2020-07-14] MEDS: Zinc Sulfate 220 MG (50mg elemental Zinc) Cap PO SCH (08:04)
[2020-07-14] MEDS: Cyanocobalamin (Vitamin B12) 250 MCG Tab PO SCH (08:04)
[2020-07-14] MEDS: BACLOFEN 10 MG PO SCH ×3 (08:06→19:55)
[2020-07-14] MEDS: OXYBUTYNIN 10 MG PO SCH (08:06)
[2020-07-14] MEDS: BIOFREEZE TOP SCH ×3 (08:07→19:52)
[2020-07-15] MEDS: OXYBUTYNIN 10 MG PO SCH (07:30)
[2020-07-15] MEDS: BACLOFEN 10 MG PO SCH ×3 (07:30→19:27)
[2020-07-15] MEDS: Zinc Sulfate 220 MG (50mg elemental Zinc) Cap PO SCH (07:31)
[2020-07-15] MEDS: Acetaminophen 325 MG Tab PO SCH ×2 (07:31→19:28)
[2020-07-15] MEDS: Lactobacillus Rhamnosus GG (Probiotic) Cap PO SCH ×2 (07:31→19:28)
[2020-07-15] MEDS: Multivitamins with Iron/Calcium/Folic Acid/Minerals Tab PO SCH (07:31)
[2020-07-15] MEDS: Cholecalciferol (Vitamin D3) 25 MCG Tab PO SCH (07:32)
[2020-07-15] MEDS: Cyanocobalamin (Vitamin B12) 250 MCG Tab PO SCH (07:32)
[2020-07-15] MEDS: BIOFREEZE TOP SCH ×3 (07:32→19:31)
[2020-07-15] MEDS: Ascorbic Acid 500 MG Tab PO SCH (07:32)
[2020-07-16] MEDS: Cyanocobalamin (Vitamin B12) 250 MCG Tab PO SCH (07:17)
[2020-07-16] MEDS: Multivitamins with Iron/Calcium/Folic Acid/Minerals Tab PO SCH (07:17)
[2020-07-16] MEDS: OXYBUTYNIN 10 MG PO SCH (07:17)
[2020-07-16] MEDS: Acetaminophen 325 MG Tab PO SCH ×2 (07:17→19:27)
[2020-07-16] MEDS: Ascorbic Acid 500 MG Tab PO SCH (07:17)
[2020-07-16] MEDS: Lactobacillus Rhamnosus GG (Probiotic) Cap PO SCH ×2 (07:17→19:27)
[2020-07-16] MEDS: BACLOFEN 10 MG PO SCH ×3 (07:17→19:27)
[2020-07-16] MEDS: Cholecalciferol (Vitamin D3) 25 MCG Tab PO SCH (07:18)
[2020-07-16] MEDS: BIOFREEZE TOP SCH ×3 (07:18→19:28)
[2020-07-16] MEDS: Zinc Sulfate 220 MG (50mg elemental Zinc) Cap PO SCH (07:20)
[2020-07-17] MEDS: Ascorbic Acid 500 MG Tab PO SCH (08:37)
[2020-07-17] MEDS: Acetaminophen 325 MG Tab PO SCH ×2 (08:37→19:40)
[2020-07-17] MEDS: Zinc Sulfate 220 MG (50mg elemental Zinc) Cap PO SCH (08:37)
[2020-07-17] MEDS: Cyanocobalamin (Vitamin B12) 250 MCG Tab PO SCH (08:37)
[2020-07-17] MEDS: Cholecalciferol (Vitamin D3) 25 MCG Tab PO SCH (08:37)
[2020-07-17] MEDS: Multivitamins with Iron/Calcium/Folic Acid/Minerals Tab PO SCH (08:37)
[2020-07-17] MEDS: Lactobacillus Rhamnosus GG (Probiotic) Cap PO SCH ×2 (08:37→19:40)
[2020-07-17] MEDS: BIOFREEZE TOP SCH ×3 (08:37→19:41)
[2020-07-17] MEDS: BACLOFEN 10 MG PO SCH ×3 (08:38→19:40)
[2020-07-17] MEDS: OXYBUTYNIN 10 MG PO SCH (08:38)
[2020-07-18] MEDS: BIOFREEZE TOP SCH ×3 (07:53→19:36)
[2020-07-18] MEDS: OXYBUTYNIN 10 MG PO SCH (07:53)
[2020-07-18] MEDS: BACLOFEN 10 MG PO SCH ×3 (07:53→19:35)
[2020-07-18] MEDS: Multivitamins with Iron/Calcium/Folic Acid/Minerals Tab PO SCH (07:54)
[2020-07-18] MEDS: Zinc Sulfate 220 MG (50mg elemental Zinc) Cap PO SCH (07:54)
[2020-07-18] MEDS: Acetaminophen 325 MG Tab PO SCH ×2 (07:54→19:35)
[2020-07-18] MEDS: Cyanocobalamin (Vitamin B12) 250 MCG Tab PO SCH (07:54)
[2020-07-18] MEDS: Cholecalciferol (Vitamin D3) 25 MCG Tab PO SCH (07:54)
[2020-07-18] MEDS: Ascorbic Acid 500 MG Tab PO SCH (07:54)
[2020-07-18] MEDS: Lactobacillus Rhamnosus GG (Probiotic) Cap PO SCH ×2 (07:54→19:34)
[2020-07-19] MEDS: BACLOFEN 10 MG PO SCH ×3 (09:54→19:19)
[2020-07-19] MEDS: OXYBUTYNIN 10 MG PO SCH (09:54)
[2020-07-19] MEDS: Cholecalciferol (Vitamin D3) 25 MCG Tab PO SCH (09:55)
[2020-07-19] MEDS: Lactobacillus Rhamnosus GG (Probiotic) Cap PO SCH ×2 (09:56→19:19)
[2020-07-19] MEDS: Ascorbic Acid 500 MG Tab PO SCH (09:56)
[2020-07-19] MEDS: Cyanocobalamin (Vitamin B12) 250 MCG Tab PO SCH (09:56)
[2020-07-19] MEDS: Zinc Sulfate 220 MG (50mg elemental Zinc) Cap PO SCH (09:56)
[2020-07-19] MEDS: Acetaminophen 325 MG Tab PO SCH ×2 (09:57→19:19)
[2020-07-19] MEDS: Multivitamins with Iron/Calcium/Folic Acid/Minerals Tab PO SCH (09:57)
[2020-07-19] MEDS: BIOFREEZE TOP SCH ×3 (09:58→19:20)
[2020-07-20] MEDS: OXYBUTYNIN 10 MG PO SCH (08:04)
[2020-07-20] MEDS: BIOFREEZE TOP SCH ×3 (08:04→19:31)
[2020-07-20] MEDS: BACLOFEN 10 MG PO SCH ×3 (08:04→19:30)
[2020-07-20] MEDS: Multivitamins with Iron/Calcium/Folic Acid/Minerals Tab PO SCH (08:05)
[2020-07-20] MEDS: Cholecalciferol (Vitamin D3) 25 MCG Tab PO SCH (08:05)
[2020-07-20] MEDS: Acetaminophen 325 MG Tab PO SCH ×2 (08:05→19:30)
[2020-07-20] MEDS: Lactobacillus Rhamnosus GG (Probiotic) Cap PO SCH ×2 (08:05→19:30)
[2020-07-20] MEDS: Ascorbic Acid 500 MG Tab PO SCH (08:05)
[2020-07-20] MEDS: Cyanocobalamin (Vitamin B12) 250 MCG Tab PO SCH (08:05)
[2020-07-20] MEDS: Zinc Sulfate 220 MG (50mg elemental Zinc) Cap PO SCH (08:05)
[2020-07-21] MEDS: BACLOFEN 10 MG PO SCH ×3 (07:51→20:01)
[2020-07-21] MEDS: OXYBUTYNIN 10 MG PO SCH (07:51)
[2020-07-21] MEDS: BIOFREEZE TOP SCH ×3 (07:51→20:02)
[2020-07-21] MEDS: Ascorbic Acid 500 MG Tab PO SCH (07:52)
[2020-07-21] MEDS: Acetaminophen 325 MG Tab PO SCH ×2 (07:52→20:01)
[2020-07-21] MEDS: Lactobacillus Rhamnosus GG (Probiotic) Cap PO SCH ×2 (07:52→20:01)
[2020-07-21] MEDS: Cyanocobalamin (Vitamin B12) 250 MCG Tab PO SCH (07:52)
[2020-07-21] MEDS: Zinc Sulfate 220 MG (50mg elemental Zinc) Cap PO SCH (07:52)
[2020-07-21] MEDS: Multivitamins with Iron/Calcium/Folic Acid/Minerals Tab PO SCH (07:52)
[2020-07-21] MEDS: Cholecalciferol (Vitamin D3) 25 MCG Tab PO SCH (07:52)
[2020-07-22] MEDS: Cyanocobalamin (Vitamin B12) 250 MCG Tab PO SCH (07:46)
[2020-07-22] MEDS: Acetaminophen 325 MG Tab PO SCH ×2 (07:47→19:24)
[2020-07-22] MEDS: Cholecalciferol (Vitamin D3) 25 MCG Tab PO SCH (07:48)
[2020-07-22] MEDS: Lactobacillus Rhamnosus GG (Probiotic) Cap PO SCH ×2 (07:48→19:24)
[2020-07-22] MEDS: Ascorbic Acid 500 MG Tab PO SCH (07:48)
[2020-07-22] MEDS: Multivitamins with Iron/Calcium/Folic Acid/Minerals Tab PO SCH (07:49)
[2020-07-22] MEDS: Zinc Sulfate 220 MG (50mg elemental Zinc) Cap PO SCH (07:49)
[2020-07-22] MEDS: BACLOFEN 10 MG PO SCH ×3 (07:49→19:24)
[2020-07-22] MEDS: OXYBUTYNIN 10 MG PO SCH (07:50)
[2020-07-22] MEDS: BIOFREEZE TOP SCH ×3 (07:50→19:24)
--- NOTE | 2020-07-22 16:37 | PCM.PN ---
- General Info Date of Service: 07/22/20 Subjective Update: 45 yo male seen today for swing bed follow-up. There are a couple of concerns today. First, he has noticed more odor coming from his sacral wound. Nursing staff also noted a couple of changes to the wound appearance in the past week. No pain or fever. Second, his ingrown toenail came back. The nurse had removed this previously and it was doing well. Then he hit this against something and the symptoms returned. He has some discomfort as well as swelling and redness. Third, he is wondering about a new PT eval. Last time they saw him, he was having a lot of pain in his right arm and so they could not work with him much. He is now not having pain and he is wondering if he can resume PT to see if they can get him stronger before he returns home. He otherwise states he is doing good. He has been eating well with no GI symptoms. He recalls that his ostomy was considered reversible and that it was up to him if he wanted to have this reversed. He is really leaning towards leaving this permanently. It is working well, as is his suprapubic catheter. - Review of Systems General: Reports: No Symptoms HEENT: Reports: No Symptoms Pulmonary: Reports: No Symptoms Cardiovascular: Reports: No Symptoms Gastrointestinal: Reports: No Symptoms Genitourinary: Reports: No Symptoms Skin: Reports: No Symptoms Neurological: Reports: No Symptoms - Patient Data Vitals - Most Recent: Last Vital Signs Temp 36.1 C 07/22/20 07:50 Pulse 80 07/22/20 09:41 Resp 17 07/22/20 06:00 BP 128/77 07/22/20 07:50 Pulse Ox 98 07/22/20 07:50 Weight - Most Recent: 143.335 kg I&O - Last 24 Hours: Intake & Output 07/22/20 07/22/20 07/22/20 06:59 14:59 22:59 Intake Total 720 Output Total 1800 4790 900 Balance -5759 -450 -819 Med Orders - Current: Current Medications Acetaminophen (Acetaminophen 325 Mg Tab) 650 mg PO BID ORAL Last Admin: 07/22/20 07:47 Dose: 650 mg Documented by: Acetaminophen (Acetaminophen 325 Mg Tab) 650 mg PO Q6H PRN PRN Reason: Pain Last Admin: 03/19/20 06:34 Dose: 650 mg Documented by: Ascorbic Acid (Ascorbic Acid 500 Mg Tab) 500 mg PO DAILY [facility] Last Admin: 07/22/20 07:48 Dose: 500 mg Documented by: Baclofen (Baclofen 10 Mg Tab (Own Supply)) 5 mg PO TID [facility] Last Admin: 07/22/20 11:42 Dose: 5 mg Documented by: Cholecalciferol (Cholecalciferol (Vitamin D3) 25 Mcg Tab) 100 mcg PO DAILY [facility] Last Admin: 07/22/20 07:48 Dose: 100 mcg Documented by: Cyanocobalamin (Cyanocobalamin (Vitamin B12) 250 Mcg Tab) 500 mcg PO DAILY [facility] Last Admin: 07/22/20 07:46 Dose: 500 mcg Documented by: Fluticasone Propionate (Fluticasone Propionate Nasal [place]) 0.33 ml NASBOTH BID [facility] Last Admin: 07/22/20 07:49 Dose: 1 spray Documented by: Lactobacillus Rhamnosus (Lactobacillus Rhamnosus Gg (Probiotic) Cap) 1 cap PO BID@0800,2000 [facility] Last Admin: 07/22/20 07:48 Dose: 1 cap Documented by: Miconazole (Miconazole 2% Top Powder 45 Gm Container) 0 gm TOP BID PRN PRN Reason: Rash Last Admin: 12/20/19 20:53 Dose: 1 applic Documented by: Multivitamins/Minerals (Multivitamins With Iron/Calcium/Folic Acid/Minerals Tab) 1 tab PO DAILY [facility] Last Admin: 07/22/20 07:49 Dose: 1 tab Documented by: Oxybutynin.Er 10mg ( (Own Supply)) 1 each PO DAILY [facility] Last Admin: 07/22/20 07:50 Dose: 1 each Documented by: Biofreeze Topical * (Pt Own Med*) 0 each TOP TID [facility] Last Admin: 07/22/20 11:42 Dose: Not Given Documented by: Senna/Docusate Sodium (Docusate Sodium/Sennosides 50-8.6 Mg Tab) 2 tab PO BEDTIME PRN PRN Reason: Constipation Last Admin: 06/22/20 20:31 Dose: 2 tab Documented by: Zinc Sulfate (Zinc Sulfate 220 Mg (50mg Elemental Zinc) Cap) 220 mg PO DAILY [facility] Last Admin: 07/22/20 07:49 Dose: 220 mg Documented by: Discontinued Medications Alteplase, Recombinant (Alteplase 2 Mg Vial) 2 mg IVPUSH ONETIME ONE Stop: 10/23/19 12:45 Last Admin: 10/23/19 13:30 Dose: 2 mg Documented by: Baclofen (Baclofen 10 Mg Tab) 5 mg PO TID [facility] Last Admin: 01/27/20 08:23 Dose: 5 mg Documented by: Baclofen (Baclofen 10 Mg Tab) 5 mg PO TID [facility] Stop: 11/21/19 20:00 Last Admin: 11/21/19 19:52 Dose: 5 mg Documented by: Carbamide Perox/Anhydrous Glycerin (Carbamide Peroxide 6.5% Otic Soln 15 Ml Bottle) 0.25 ml EARLF BID [facility] Stop: 05/05/20 08:00 Last Admin: 05/05/20 07:23 Dose: 1 drop Documented by: Clindamycin HCl (Clindamycin Hcl 150 Mg Cap) 150 mg PO TID [facility] Stop: 12/28/19 20:01 Last Admin: 12/19/19 09:26 Dose: 150 mg Documented by: Clindamycin HCl (Clindamycin Hcl 150 Mg Cap (Own Supply)) 150 mg PO TID [facility] Stop: 12/28/19 20:01 Last Admin: 12/28/19 21:15 Dose: Not Given Documented by: Clindamycin HCl (Clindamycin Hcl 150 Mg Cap) 150 mg PO ONETIME ONE Stop: 12/28/19 21:31 Last Admin: 12/28/19 21:34 Dose: 150 mg Documented by: Fluticasone Propionate (Fluticasone Propionate Nasal [place] 9.9 Ml Bottle) 0 ml NASBOTH BID [facility] Last Admin: 01/24/20 09:13 Dose: 1 ml Documented by: Fluticasone Propionate (Fluticasone Propionate Nasal [place] 9.9 Ml Bottle) 0.33 ml NASBOTH BID [facility] Last Admin: 06/11/20 07:31 Dose: 1 spray Documented by: Fluticasone Propionate (Fluticasone Propionate Nasal [place] 16 Gm Bottle) 0 gm NASBOTH BID [facility] Stop: 11/21/19 20:01 Last Admin: 11/21/19 19:51 Dose: 1 spray Documented by: Fluticasone Propionate (Fluticasone Propionate Nasal [place] 16 Gm Bottle) 0 gm NASBOTH BID [facility] Last Admin: 01/09/20 09:39 Dose: Not Given Documented by: Heparin Sodium (Porcine) (Heparin Sodium 100 Units/Ml 3 Ml Syringe) 300 unit FLUSH ASDIRECTED PRN PRN Reason: Keep Vein Open Last Admin: 11/27/19 06:45 Dose: 300 unit Documented by: Heparin Sodium (Porcine) (Heparin Sodium 100 Units/Ml 3 Ml Syringe) 300 unit FLUSH Q8H [facility] Stop: 11/25/19 23:59 Last Admin: 11/18/19 19:25 Dose: Not Given Documented by: Heparin Sodium (Porcine) (Heparin Sodium 100 Units/Ml 3 Ml Syringe) 300 unit FLUSH Q8H [facility] Stop: 11/25/19 23:59 Last Admin: 11/25/19 20:08 Dose: 300 unit Documented by: Piperacillin Sod/Tazobactam (Sod 4.5 gm/ Sodium Chloride) 100 mls @ 25 mls/hr IV Q8H [facility] Stop: 11/25/19 23:58 Last Admin: 11/18/19 09:46 Dose: Not Given Documented by: Piperacillin Sod/Tazobactam (Sod 4.5 gm/ Sodium Chloride) 100 mls @ 200 mls/hr IV ONETIME ONE Stop: 11/18/19 15:29 Last Admin: 11/18/19 15:07 Dose: 200 mls/hr Documented by: Piperacillin Sod/Tazobactam (Sod 4.5 gm/ Sodium Chloride) 100 mls @ 25 mls/hr IV Q8H [facility] Stop: 11/25/19 23:58 Last Admin: 11/25/19 23:20 Dose: 25 mls/hr Documented by: Lactobacillus Rhamnosus (Lactobacillus Rhamnosus Gg (Probiotic) Cap) 1 cap PO DAILY [facility] Last Admin: 12/20/19 09:12 Dose: 1 cap Documented by: Lactobacillus Rhamnosus (Lactobacillus Rhamnosus Gg (Probiotic) Cap) 1 cap PO BID@1000,2200 [facility] Stop: 01/11/20 22:01 Last Admin: 12/30/19 08:17 Dose: 1 cap Documented by: Clindamycin 300mg (Cap (Own Supply)) 1 each PO BID [facility] Stop: 03/22/20 08:01 Last Admin: 03/22/20 08:16 Dose: 1 each Documented by: Oxybutynin Chloride (Oxybutynin 5 Mg Tab.Er) 5 mg PO DAILY [facility] Last Admin: 04/22/20 08:49 Dose: 5 mg Documented by: Oxybutynin Chloride (Oxybutynin 5 Mg Tab.Er) 10 mg PO DAILY [facility] Stop: 05/02/20 08:01 Last Admin: 05/02/20 09:08 Dose: 10 mg Documented by: Oxybutynin Chloride (Oxybutynin 5 Mg Tab.Er) 5 mg PO ONETIME ONE Stop: 04/22/20 12:31 Last Admin: 04/22/20 13:43 Dose: 5 mg Documented by: Sodium Bicarbonate (Sodium Bicarbonate 8.4% 50 Meq/50 Ml Syringe) Confirm Administered Dose 50 meq .ROUTE .STK-MED ONE Stop: 11/02/19 12:42 Last Admin: 11/02/19 13:28 Dose: Not Given Documented by: Sodium Chloride (Sodium Chloride 0.9% 10 Ml Syringe) 10 ml IV ASDIRECTED PRN PRN Reason: Keep Vein Open Last Admin: 11/27/19 06:45 Dose: 10 ml Documented by: Zinc Gluconate (Zinc (Zinc Gluconate) 50 Mg Tab) 50 mg PO DAILY [facility] Last Admin: 03/19/20 11:20 Dose: Not Given Documented by: - Exam General: Alert, Oriented, Cooperative, No Acute Distress HEENT: Mucous Membr. Moist/[place] Neck: Supple, Trachea Midline, No Thyromegaly. No: Lymphadenopathy Lungs: Clear to Auscultation, Normal Respiratory Effort Cardiovascular: Regular Rate, Regular Rhythm, No Murmurs GI/Abdominal Exam: Normal Bowel Sounds, Soft, Non-Tender, No Organomegaly, No Distention, No Mass Extremities: No Pedal Edema, Normal Capillary Refill, Other (left great toenail is ingrown with associated granulation tissue as well as mild erythema and edema with mild tenderness to palpation) Peripheral Pulses: 2+: Radial (L), Radial (R) Skin: Warm, Dry Wound/Incisions: Other (new ulceration around 12:00 as well as a central opening to the wound bed draining serous fluid) - Patient Data Result Diagrams: 11/27/19 06:44 11/27/19 06:44 Sepsis Event Note - Evaluation Sepsis Screening Result: No Definite Risk - Focused Exam Vital Signs: Vital Signs Temp Pulse Resp BP Pulse Ox 07/22/20 09:41 80 07/22/20 07:50 36.1 C 72 128/77 98 07/22/20 06:00 36.8 C 78 17 128/79 96 - Problem List & Annotations (1) Sacral decubitus ulcer SNOMED Code(s): 382004652 Code(s): L89.159 - PRESSURE ULCER OF SACRAL REGION, UNSPECIFIED STAGE Status: Acute Current Visit: No Qualifiers: Pressure injury stage: unspecified pressure injury stage Qualified Code(s): L89.159 - Pressure ulcer of sacral region, unspecified stage (2) Ingrown toenail SNOMED Code(s): 810473482 Code(s): L60.0 - INGROWING NAIL Status: Acute Current Visit: Yes (3) Chronic sinusitis SNOMED Code(s): 66251641 Code(s): J32.9 - CHRONIC SINUSITIS, UNSPECIFIED Status: Chronic Current Visit: No (4) Constipation SNOMED Code(s): 34593651 Code(s): K59.00 - CONSTIPATION, UNSPECIFIED Status: Chronic Current Visit: No (5) Hypertension SNOMED Code(s): 57044945 Code(s): I10 - ESSENTIAL (PRIMARY) HYPERTENSION Status: Chronic Current Visit: No (6) Multiple sclerosis SNOMED Code(s): 41859728 Code(s): G35 - MULTIPLE SCLEROSIS Status: Chronic Current Visit: No (7) Neurogenic bladder SNOMED Code(s): 486093161 Code(s): N31.9 - NEUROMUSCULAR DYSFUNCTION OF BLADDER, UNSPECIFIED Status: Chronic Current Visit: No (8) Adjustment disorder SNOMED Code(s): 07021417 Code(s): F43.20 - ADJUSTMENT DISORDER, UNSPECIFIED Status: Acute Current Visit: No Qualifiers: Adjustment disorder type: with depressed mood Qualified Code(s): F43.21 - Adjustment disorder with depressed mood (9) Squamous cell carcinoma SNOMED Code(s): 822679591 Code(s): YDU0032 - Status: Acute Current Visit: Yes - Problem List Review Problem List Initiated/Reviewed/Updated: Yes - Assessment Assessment:: 44 yo male on intermediate teacher swing bed initially for wound cares related to a sacral pressure ulcer, now related to disposition planning. Wound with new concerns. Also has an ingrown toenail. - Plan Plan:: #1 Sacral decubitus ulcer - Wound with new changes but no infection concerns. - Based on his history, would be very proactive with these changes. - He will be referred back to the wound clinic for re-evaluation. #2 Ingrown toenail - Referral entered to podiatry. #3 Chronic sinusitis #4 Constipation #5 Hypertension #6 MS - Continue current medications and neurology follow-ups as scheduled. - Will also get PT reordered. #7 Neurogenic bladder - Suprapubic catheter is working well. - Continue oxybutynin. #8 Adjustment disorder - Mood remains good. #9 SCC, resolved - Has completed follow-up as recommended by dermatology. Patient is admitted to swing bed - wound is nearly resolved. He will remain on swing bed until an appropriate alternative living environment is available for him. Case management continues to actively work on this. Code status is DNR/DNI - discussed on admission. No indication for VTE prophylaxis as he is at his usual functional baseline.
[2020-07-23] MEDS: Cyanocobalamin (Vitamin B12) 250 MCG Tab PO SCH (07:38)
[2020-07-23] MEDS: OXYBUTYNIN 10 MG PO SCH (07:38)
[2020-07-23] MEDS: BACLOFEN 10 MG PO SCH ×3 (07:38→20:13)
[2020-07-23] MEDS: Lactobacillus Rhamnosus GG (Probiotic) Cap PO SCH ×2 (07:39→20:14)
[2020-07-23] MEDS: Ascorbic Acid 500 MG Tab PO SCH (07:39)
[2020-07-23] MEDS: Cholecalciferol (Vitamin D3) 25 MCG Tab PO SCH (07:39)
[2020-07-23] MEDS: Multivitamins with Iron/Calcium/Folic Acid/Minerals Tab PO SCH (07:39)
[2020-07-23] MEDS: Zinc Sulfate 220 MG (50mg elemental Zinc) Cap PO SCH (07:39)
[2020-07-23] MEDS: Acetaminophen 325 MG Tab PO SCH ×2 (07:39→20:14)
[2020-07-23] MEDS: BIOFREEZE TOP SCH ×3 (07:40→20:14)
[2020-07-24] MEDS: BIOFREEZE TOP SCH ×3 (07:34→19:32)
[2020-07-24] MEDS: OXYBUTYNIN 10 MG PO SCH (07:34)
[2020-07-24] MEDS: Cyanocobalamin (Vitamin B12) 250 MCG Tab PO SCH (07:35)
[2020-07-24] MEDS: BACLOFEN 10 MG PO SCH ×3 (07:35→19:33)
[2020-07-24] MEDS: Ascorbic Acid 500 MG Tab PO SCH (07:36)
[2020-07-24] MEDS: Multivitamins with Iron/Calcium/Folic Acid/Minerals Tab PO SCH (07:36)
[2020-07-24] MEDS: Zinc Sulfate 220 MG (50mg elemental Zinc) Cap PO SCH (07:36)
[2020-07-24] MEDS: Lactobacillus Rhamnosus GG (Probiotic) Cap PO SCH ×2 (07:36→19:30)
[2020-07-24] MEDS: Cholecalciferol (Vitamin D3) 25 MCG Tab PO SCH (07:36)
[2020-07-24] MEDS: Acetaminophen 325 MG Tab PO SCH ×2 (07:36→19:30)
[2020-07-25] MEDS: OXYBUTYNIN 10 MG PO SCH (07:31)
[2020-07-25] MEDS: BACLOFEN 10 MG PO SCH ×3 (07:31→19:45)
[2020-07-25] MEDS: Acetaminophen 325 MG Tab PO SCH ×2 (07:32→19:45)
[2020-07-25] MEDS: BIOFREEZE TOP SCH ×3 (07:32→19:45)
[2020-07-25] MEDS: Zinc Sulfate 220 MG (50mg elemental Zinc) Cap PO SCH (07:33)
[2020-07-25] MEDS: Lactobacillus Rhamnosus GG (Probiotic) Cap PO SCH ×2 (07:33→19:45)
[2020-07-25] MEDS: Cholecalciferol (Vitamin D3) 25 MCG Tab PO SCH (07:33)
[2020-07-25] MEDS: Cyanocobalamin (Vitamin B12) 250 MCG Tab PO SCH (07:33)
[2020-07-25] MEDS: Multivitamins with Iron/Calcium/Folic Acid/Minerals Tab PO SCH (07:34)
[2020-07-25] MEDS: Ascorbic Acid 500 MG Tab PO SCH (07:39)
[2020-07-26] MEDS: BACLOFEN 10 MG PO SCH ×3 (07:59→19:38)
[2020-07-26] MEDS: BIOFREEZE TOP SCH ×3 (07:59→19:38)
[2020-07-26] MEDS: OXYBUTYNIN 10 MG PO SCH (07:59)
[2020-07-26] MEDS: Acetaminophen 325 MG Tab PO SCH ×2 (08:00→19:37)
[2020-07-26] MEDS: Cyanocobalamin (Vitamin B12) 250 MCG Tab PO SCH (08:00)
[2020-07-26] MEDS: Lactobacillus Rhamnosus GG (Probiotic) Cap PO SCH ×2 (08:00→19:37)
[2020-07-26] MEDS: Zinc Sulfate 220 MG (50mg elemental Zinc) Cap PO SCH (08:00)
[2020-07-26] MEDS: Cholecalciferol (Vitamin D3) 25 MCG Tab PO SCH (08:01)
[2020-07-26] MEDS: Multivitamins with Iron/Calcium/Folic Acid/Minerals Tab PO SCH (08:01)
[2020-07-26] MEDS: Ascorbic Acid 500 MG Tab PO SCH (08:01)
[2020-07-27] MEDS: Acetaminophen 325 MG Tab PO SCH ×2 (07:31→20:06)
[2020-07-27] MEDS: Lactobacillus Rhamnosus GG (Probiotic) Cap PO SCH ×2 (07:31→20:06)
[2020-07-27] MEDS: Multivitamins with Iron/Calcium/Folic Acid/Minerals Tab PO SCH (07:31)
[2020-07-27] MEDS: Cholecalciferol (Vitamin D3) 25 MCG Tab PO SCH (07:31)
[2020-07-27] MEDS: Zinc Sulfate 220 MG (50mg elemental Zinc) Cap PO SCH (07:31)
[2020-07-27] MEDS: Cyanocobalamin (Vitamin B12) 250 MCG Tab PO SCH (07:31)
[2020-07-27] MEDS: Ascorbic Acid 500 MG Tab PO SCH (07:31)
[2020-07-27] MEDS: BACLOFEN 10 MG PO SCH ×3 (07:32→20:06)
[2020-07-27] MEDS: BIOFREEZE TOP SCH ×3 (07:33→20:07)
[2020-07-27] MEDS: OXYBUTYNIN 10 MG PO SCH (07:33)
[2020-07-28] MEDS: Lactobacillus Rhamnosus GG (Probiotic) Cap PO SCH ×2 (15:43→19:46)
[2020-07-28] MEDS: Acetaminophen 325 MG Tab PO SCH ×2 (15:43→19:48)
[2020-07-28] MEDS: Zinc Sulfate 220 MG (50mg elemental Zinc) Cap PO SCH (15:43)
[2020-07-28] MEDS: Multivitamins with Iron/Calcium/Folic Acid/Minerals Tab PO SCH (15:43)
[2020-07-28] MEDS: Cyanocobalamin (Vitamin B12) 250 MCG Tab PO SCH (15:43)
[2020-07-28] MEDS: Cholecalciferol (Vitamin D3) 25 MCG Tab PO SCH (15:43)
[2020-07-28] MEDS: Ascorbic Acid 500 MG Tab PO SCH (15:43)
[2020-07-28] MEDS: BACLOFEN 10 MG PO SCH ×3 (15:45→19:47)
[2020-07-28] MEDS: OXYBUTYNIN 10 MG PO SCH (15:45)
[2020-07-28] MEDS: BIOFREEZE TOP SCH ×3 (15:46→19:47)
[2020-07-29] MEDS: Zinc Sulfate 220 MG (50mg elemental Zinc) Cap PO SCH (08:39)
[2020-07-29] MEDS: Acetaminophen 325 MG Tab PO SCH ×2 (08:39→20:04)
[2020-07-29] MEDS: OXYBUTYNIN 10 MG PO SCH (08:39)
[2020-07-29] MEDS: BACLOFEN 10 MG PO SCH ×3 (08:39→20:04)
[2020-07-29] MEDS: BIOFREEZE TOP SCH ×3 (08:39→20:05)
[2020-07-29] MEDS: Ascorbic Acid 500 MG Tab PO SCH (08:40)
[2020-07-29] MEDS: Lactobacillus Rhamnosus GG (Probiotic) Cap PO SCH ×2 (08:40→20:04)
[2020-07-29] MEDS: Multivitamins with Iron/Calcium/Folic Acid/Minerals Tab PO SCH (08:40)
[2020-07-29] MEDS: Cyanocobalamin (Vitamin B12) 250 MCG Tab PO SCH (08:40)
[2020-07-29] MEDS: Cholecalciferol (Vitamin D3) 25 MCG Tab PO SCH (08:40)
[2020-07-30] MEDS: OXYBUTYNIN 10 MG PO SCH (08:20)
[2020-07-30] MEDS: BIOFREEZE TOP SCH ×3 (08:20→19:59)
[2020-07-30] MEDS: Ascorbic Acid 500 MG Tab PO SCH (08:21)
[2020-07-30] MEDS: Zinc Sulfate 220 MG (50mg elemental Zinc) Cap PO SCH (08:21)
[2020-07-30] MEDS: Cholecalciferol (Vitamin D3) 25 MCG Tab PO SCH (08:21)
[2020-07-30] MEDS: Acetaminophen 325 MG Tab PO SCH ×2 (08:21→19:58)
[2020-07-30] MEDS: BACLOFEN 10 MG PO SCH ×3 (08:21→20:00)
[2020-07-30] MEDS: Lactobacillus Rhamnosus GG (Probiotic) Cap PO SCH ×2 (08:22→19:58)
[2020-07-30] MEDS: Multivitamins with Iron/Calcium/Folic Acid/Minerals Tab PO SCH (08:22)
[2020-07-30] MEDS: Cyanocobalamin (Vitamin B12) 250 MCG Tab PO SCH (08:22)
[2020-07-31] MEDS: Lactobacillus Rhamnosus GG (Probiotic) Cap PO SCH ×3 (06:31→19:40)
[2020-07-31] MEDS: BACLOFEN 10 MG PO SCH ×4 (06:32→19:41)
[2020-07-31] MEDS: BIOFREEZE TOP SCH ×4 (06:33→19:41)
[2020-07-31] MEDS: OXYBUTYNIN 10 MG PO SCH ×2 (06:33→07:37)
[2020-07-31] MEDS: Multivitamins with Iron/Calcium/Folic Acid/Minerals Tab PO SCH ×2 (06:33→07:37)
[2020-07-31] MEDS: Acetaminophen 325 MG Tab PO SCH ×3 (06:34→19:42)
[2020-07-31] MEDS: Cyanocobalamin (Vitamin B12) 250 MCG Tab PO SCH ×2 (06:35→07:38)
[2020-07-31] MEDS: Cholecalciferol (Vitamin D3) 25 MCG Tab PO SCH ×2 (06:36→07:38)
[2020-07-31] MEDS: Ascorbic Acid 500 MG Tab PO SCH ×2 (06:36→07:38)
[2020-07-31] MEDS: Zinc Sulfate 220 MG (50mg elemental Zinc) Cap PO SCH ×2 (06:38→07:38)
[2020-08-01] MEDS: OXYBUTYNIN 10 MG PO SCH (08:31)
[2020-08-01] MEDS: BACLOFEN 10 MG PO SCH ×3 (08:31→19:23)
[2020-08-01] MEDS: Lactobacillus Rhamnosus GG (Probiotic) Cap PO SCH ×2 (08:32→19:22)
[2020-08-01] MEDS: Multivitamins with Iron/Calcium/Folic Acid/Minerals Tab PO SCH (08:32)
[2020-08-01] MEDS: Cholecalciferol (Vitamin D3) 25 MCG Tab PO SCH (08:32)
[2020-08-01] MEDS: Acetaminophen 325 MG Tab PO SCH ×2 (08:32→19:22)
[2020-08-01] MEDS: Zinc Sulfate 220 MG (50mg elemental Zinc) Cap PO SCH (08:32)
[2020-08-01] MEDS: Ascorbic Acid 500 MG Tab PO SCH (08:32)
[2020-08-01] MEDS: Cyanocobalamin (Vitamin B12) 250 MCG Tab PO SCH (08:32)
[2020-08-01] MEDS: BIOFREEZE TOP SCH ×3 (08:33→19:24)
[2020-08-02] MEDS: Lactobacillus Rhamnosus GG (Probiotic) Cap PO SCH ×2 (07:58→20:37)
[2020-08-02] MEDS: OXYBUTYNIN 10 MG PO SCH (07:58)
[2020-08-02] MEDS: Cholecalciferol (Vitamin D3) 25 MCG Tab PO SCH (07:58)
[2020-08-02] MEDS: BACLOFEN 10 MG PO SCH ×3 (07:58→20:37)
[2020-08-02] MEDS: Multivitamins with Iron/Calcium/Folic Acid/Minerals Tab PO SCH (07:58)
[2020-08-02] MEDS: Cyanocobalamin (Vitamin B12) 250 MCG Tab PO SCH (07:58)
[2020-08-02] MEDS: Ascorbic Acid 500 MG Tab PO SCH (07:59)
[2020-08-02] MEDS: Zinc Sulfate 220 MG (50mg elemental Zinc) Cap PO SCH (07:59)
[2020-08-02] MEDS: BIOFREEZE TOP SCH ×3 (07:59→20:37)
[2020-08-02] MEDS: Acetaminophen 325 MG Tab PO SCH ×2 (07:59→20:38)
[2020-08-03] MEDS: Acetaminophen 325 MG Tab PO SCH ×2 (09:44→21:26)
[2020-08-03] MEDS: OXYBUTYNIN 10 MG PO SCH (09:44)
[2020-08-03] MEDS: BACLOFEN 10 MG PO SCH ×3 (09:44→21:25)
[2020-08-03] MEDS: Cyanocobalamin (Vitamin B12) 250 MCG Tab PO SCH (09:44)
[2020-08-03] MEDS: Lactobacillus Rhamnosus GG (Probiotic) Cap PO SCH ×2 (09:44→21:26)
[2020-08-03] MEDS: Zinc Sulfate 220 MG (50mg elemental Zinc) Cap PO SCH (09:45)
[2020-08-03] MEDS: Cholecalciferol (Vitamin D3) 25 MCG Tab PO SCH (09:45)
[2020-08-03] MEDS: Ascorbic Acid 500 MG Tab PO SCH (09:45)
[2020-08-03] MEDS: Multivitamins with Iron/Calcium/Folic Acid/Minerals Tab PO SCH (09:45)
[2020-08-03] MEDS: BIOFREEZE TOP SCH (09:48)
[2020-08-03] MEDS ORDERED: Non-Formulary Medication 1 Each TOP PRN (09:49)
[2020-08-04] MEDS: Cyanocobalamin (Vitamin B12) 250 MCG Tab PO SCH (09:46)
[2020-08-04] MEDS: Lactobacillus Rhamnosus GG (Probiotic) Cap PO SCH ×2 (09:46→20:29)
[2020-08-04] MEDS: BACLOFEN 10 MG PO SCH ×3 (09:46→20:29)
[2020-08-04] MEDS: OXYBUTYNIN 10 MG PO SCH (09:46)
[2020-08-04] MEDS: Multivitamins with Iron/Calcium/Folic Acid/Minerals Tab PO SCH (09:47)
[2020-08-04] MEDS: Cholecalciferol (Vitamin D3) 25 MCG Tab PO SCH (09:47)
[2020-08-04] MEDS: Zinc Sulfate 220 MG (50mg elemental Zinc) Cap PO SCH (09:48)
[2020-08-04] MEDS: Ascorbic Acid 500 MG Tab PO SCH (09:48)
[2020-08-04] MEDS: Acetaminophen 325 MG Tab PO SCH ×2 (09:48→20:29)
[2020-08-05] MEDS: Lactobacillus Rhamnosus GG (Probiotic) Cap PO SCH ×2 (08:34→20:28)
[2020-08-05] MEDS: Cyanocobalamin (Vitamin B12) 250 MCG Tab PO SCH (08:34)
[2020-08-05] MEDS: Cholecalciferol (Vitamin D3) 25 MCG Tab PO SCH (08:34)
[2020-08-05] MEDS: BACLOFEN 10 MG PO SCH ×3 (08:34→20:28)
[2020-08-05] MEDS: Ascorbic Acid 500 MG Tab PO SCH (08:34)
[2020-08-05] MEDS: Multivitamins with Iron/Calcium/Folic Acid/Minerals Tab PO SCH (08:34)
[2020-08-05] MEDS: OXYBUTYNIN 10 MG PO SCH (08:34)
[2020-08-05] MEDS: Zinc Sulfate 220 MG (50mg elemental Zinc) Cap PO SCH (08:34)
[2020-08-05] MEDS: Acetaminophen 325 MG Tab PO SCH ×2 (08:35→20:28)
[2020-08-06] MEDS: OXYBUTYNIN 10 MG PO SCH (08:22)
[2020-08-06] MEDS: BACLOFEN 10 MG PO SCH ×3 (08:22→19:22)
[2020-08-06] MEDS: Cholecalciferol (Vitamin D3) 25 MCG Tab PO SCH (08:23)
[2020-08-06] MEDS: Multivitamins with Iron/Calcium/Folic Acid/Minerals Tab PO SCH (08:30)
[2020-08-06] MEDS: Cyanocobalamin (Vitamin B12) 250 MCG Tab PO SCH (08:30)
[2020-08-06] MEDS: Acetaminophen 325 MG Tab PO SCH ×2 (08:30→19:22)
[2020-08-06] MEDS: Lactobacillus Rhamnosus GG (Probiotic) Cap PO SCH ×2 (08:31→19:22)
[2020-08-06] MEDS: Zinc Sulfate 220 MG (50mg elemental Zinc) Cap PO SCH (08:31)
[2020-08-06] MEDS: Ascorbic Acid 500 MG Tab PO SCH (08:31)
[2020-08-07] MEDS: OXYBUTYNIN 10 MG PO SCH (08:20)
[2020-08-07] MEDS: BACLOFEN 10 MG PO SCH ×3 (08:20→19:44)
[2020-08-07] MEDS: Cyanocobalamin (Vitamin B12) 250 MCG Tab PO SCH (08:20)
[2020-08-07] MEDS: Lactobacillus Rhamnosus GG (Probiotic) Cap PO SCH ×2 (08:21→19:44)
[2020-08-07] MEDS: Acetaminophen 325 MG Tab PO SCH ×2 (08:21→19:45)
[2020-08-07] MEDS: Cholecalciferol (Vitamin D3) 25 MCG Tab PO SCH (08:21)
[2020-08-07] MEDS: Ascorbic Acid 500 MG Tab PO SCH (08:22)
[2020-08-07] MEDS: Multivitamins with Iron/Calcium/Folic Acid/Minerals Tab PO SCH (08:22)
[2020-08-07] MEDS: Zinc Sulfate 220 MG (50mg elemental Zinc) Cap PO SCH (08:22)
[2020-08-08] MEDS: BACLOFEN 10 MG PO SCH ×3 (09:24→20:30)
[2020-08-08] MEDS: OXYBUTYNIN 10 MG PO SCH (09:24)
[2020-08-08] MEDS: Lactobacillus Rhamnosus GG (Probiotic) Cap PO SCH ×2 (09:25→20:30)
[2020-08-08] MEDS: Zinc Sulfate 220 MG (50mg elemental Zinc) Cap PO SCH (09:26)
[2020-08-08] MEDS: Cyanocobalamin (Vitamin B12) 250 MCG Tab PO SCH (09:26)
[2020-08-08] MEDS: Cholecalciferol (Vitamin D3) 25 MCG Tab PO SCH (09:27)
[2020-08-08] MEDS: Multivitamins with Iron/Calcium/Folic Acid/Minerals Tab PO SCH (09:27)
[2020-08-08] MEDS: Acetaminophen 325 MG Tab PO SCH ×2 (09:28→20:31)
[2020-08-08] MEDS: Ascorbic Acid 500 MG Tab PO SCH (09:28)
[2020-08-09] MEDS: BACLOFEN 10 MG PO SCH ×3 (08:27→19:43)
[2020-08-09] MEDS: OXYBUTYNIN 10 MG PO SCH (08:27)
[2020-08-09] MEDS: Cyanocobalamin (Vitamin B12) 250 MCG Tab PO SCH (08:30)
[2020-08-09] MEDS: Multivitamins with Iron/Calcium/Folic Acid/Minerals Tab PO SCH (08:38)
[2020-08-09] MEDS: Zinc Sulfate 220 MG (50mg elemental Zinc) Cap PO SCH (08:38)
[2020-08-09] MEDS: Acetaminophen 325 MG Tab PO SCH ×2 (08:41→19:42)
[2020-08-09] MEDS: Ascorbic Acid 500 MG Tab PO SCH (08:43)
[2020-08-09] MEDS: Cholecalciferol (Vitamin D3) 25 MCG Tab PO SCH (09:00)
[2020-08-09] MEDS: Lactobacillus Rhamnosus GG (Probiotic) Cap PO SCH ×2 (09:01→19:42)
[2020-08-10] MEDS: BACLOFEN 10 MG PO SCH ×3 (07:32→19:47)
[2020-08-10] MEDS: Cyanocobalamin (Vitamin B12) 250 MCG Tab PO SCH (07:32)
[2020-08-10] MEDS: OXYBUTYNIN 10 MG PO SCH (07:32)
[2020-08-10] MEDS: Cholecalciferol (Vitamin D3) 25 MCG Tab PO SCH (07:32)
[2020-08-10] MEDS: Lactobacillus Rhamnosus GG (Probiotic) Cap PO SCH (07:32)
[2020-08-10] MEDS: Zinc Sulfate 220 MG (50mg elemental Zinc) Cap PO SCH (07:32)
[2020-08-10] MEDS: Multivitamins with Iron/Calcium/Folic Acid/Minerals Tab PO SCH (07:32)
[2020-08-10] MEDS: Ascorbic Acid 500 MG Tab PO SCH (07:33)
[2020-08-10] MEDS: Acetaminophen 325 MG Tab PO SCH ×2 (07:33→19:48)
[2020-08-11] MEDS: BACLOFEN 10 MG PO SCH ×3 (07:28→20:47)
[2020-08-11] MEDS: Cyanocobalamin (Vitamin B12) 250 MCG Tab PO SCH (07:29)
[2020-08-11] MEDS: Multivitamins with Iron/Calcium/Folic Acid/Minerals Tab PO SCH (07:29)
[2020-08-11] MEDS: Cholecalciferol (Vitamin D3) 25 MCG Tab PO SCH (07:29)
[2020-08-11] MEDS: OXYBUTYNIN 10 MG PO SCH (07:29)
[2020-08-11] MEDS: Ascorbic Acid 500 MG Tab PO SCH (07:29)
[2020-08-11] MEDS: Zinc Sulfate 220 MG (50mg elemental Zinc) Cap PO SCH (07:29)
[2020-08-11] MEDS: Acetaminophen 325 MG Tab PO SCH ×2 (07:30→20:48)
[2020-08-12] MEDS: OXYBUTYNIN 10 MG PO SCH (08:10)
[2020-08-12] MEDS: Multivitamins with Iron/Calcium/Folic Acid/Minerals Tab PO SCH (08:10)
[2020-08-12] MEDS: BACLOFEN 10 MG PO SCH ×3 (08:10→19:36)
[2020-08-12] MEDS: Acetaminophen 325 MG Tab PO SCH ×2 (08:11→19:37)
[2020-08-12] MEDS: Cholecalciferol (Vitamin D3) 25 MCG Tab PO SCH (08:11)
[2020-08-12] MEDS: Ascorbic Acid 500 MG Tab PO SCH (08:11)
[2020-08-12] MEDS: Zinc Sulfate 220 MG (50mg elemental Zinc) Cap PO SCH (08:11)
[2020-08-12] MEDS: Cyanocobalamin (Vitamin B12) 250 MCG Tab PO SCH (08:11)
[2020-08-13] MEDS: OXYBUTYNIN 10 MG PO SCH (08:28)
[2020-08-13] MEDS: BACLOFEN 10 MG PO SCH ×3 (08:28→20:46)
[2020-08-13] MEDS: Multivitamins with Iron/Calcium/Folic Acid/Minerals Tab PO SCH (08:29)
[2020-08-13] MEDS: Acetaminophen 325 MG Tab PO SCH ×2 (08:29→20:46)
[2020-08-13] MEDS: Cyanocobalamin (Vitamin B12) 250 MCG Tab PO SCH (08:30)
[2020-08-13] MEDS: Cholecalciferol (Vitamin D3) 25 MCG Tab PO SCH (08:30)
[2020-08-13] MEDS: Zinc Sulfate 220 MG (50mg elemental Zinc) Cap PO SCH (08:30)
[2020-08-13] MEDS: Ascorbic Acid 500 MG Tab PO SCH (08:30)
[2020-08-13] MEDS: Lactobacillus Rhamnosus GG (Probiotic) Cap PO SCH (09:08)
[2020-08-14] MEDS: BACLOFEN 10 MG PO SCH ×3 (07:51→20:31)
[2020-08-14] MEDS: Acetaminophen 325 MG Tab PO SCH ×2 (07:51→20:32)
[2020-08-14] MEDS: OXYBUTYNIN 10 MG PO SCH (07:51)
[2020-08-14] MEDS: Zinc Sulfate 220 MG (50mg elemental Zinc) Cap PO SCH (07:52)
[2020-08-14] MEDS: Ascorbic Acid 500 MG Tab PO SCH (07:52)
[2020-08-14] MEDS: Lactobacillus Rhamnosus GG (Probiotic) Cap PO SCH (07:52)
[2020-08-14] MEDS: Multivitamins with Iron/Calcium/Folic Acid/Minerals Tab PO SCH (07:52)
[2020-08-14] MEDS: Cholecalciferol (Vitamin D3) 25 MCG Tab PO SCH (07:52)
[2020-08-14] MEDS: Cyanocobalamin (Vitamin B12) 250 MCG Tab PO SCH (07:52)
[2020-08-15] MEDS: BACLOFEN 10 MG PO SCH ×3 (08:10→21:11)
[2020-08-15] MEDS: OXYBUTYNIN 10 MG PO SCH (08:10)
[2020-08-15] MEDS: Acetaminophen 325 MG Tab PO SCH ×2 (08:10→21:11)
[2020-08-15] MEDS: Cyanocobalamin (Vitamin B12) 250 MCG Tab PO SCH (08:11)
[2020-08-15] MEDS: Ascorbic Acid 500 MG Tab PO SCH (08:11)
[2020-08-15] MEDS: Zinc Sulfate 220 MG (50mg elemental Zinc) Cap PO SCH (08:11)
[2020-08-15] MEDS: Multivitamins with Iron/Calcium/Folic Acid/Minerals Tab PO SCH (08:11)
[2020-08-15] MEDS: Cholecalciferol (Vitamin D3) 25 MCG Tab PO SCH (08:11)
[2020-08-15] MEDS: Lactobacillus Rhamnosus GG (Probiotic) Cap PO SCH (08:11)
[2020-08-16] MEDS: OXYBUTYNIN 10 MG PO SCH (08:07)
[2020-08-16] MEDS: BACLOFEN 10 MG PO SCH ×3 (08:07→19:48)
[2020-08-16] MEDS: Acetaminophen 325 MG Tab PO SCH ×2 (08:08→19:48)
[2020-08-16] MEDS: Multivitamins with Iron/Calcium/Folic Acid/Minerals Tab PO SCH (08:08)
[2020-08-16] MEDS: Cholecalciferol (Vitamin D3) 25 MCG Tab PO SCH (08:08)
[2020-08-16] MEDS: Ascorbic Acid 500 MG Tab PO SCH (08:08)
[2020-08-16] MEDS: Lactobacillus Rhamnosus GG (Probiotic) Cap PO SCH (08:08)
[2020-08-16] MEDS: Cyanocobalamin (Vitamin B12) 250 MCG Tab PO SCH (08:08)
[2020-08-16] MEDS: Zinc Sulfate 220 MG (50mg elemental Zinc) Cap PO SCH (08:08)
[2020-08-17] MEDS: BACLOFEN 10 MG PO SCH ×3 (08:25→19:38)
[2020-08-17] MEDS: OXYBUTYNIN 10 MG PO SCH (08:25)
[2020-08-17] MEDS: Ascorbic Acid 500 MG Tab PO SCH (08:26)
[2020-08-17] MEDS: Multivitamins with Iron/Calcium/Folic Acid/Minerals Tab PO SCH (08:26)
[2020-08-17] MEDS: Cyanocobalamin (Vitamin B12) 250 MCG Tab PO SCH (08:26)
[2020-08-17] MEDS: Cholecalciferol (Vitamin D3) 25 MCG Tab PO SCH (08:26)
[2020-08-17] MEDS: Acetaminophen 325 MG Tab PO SCH ×2 (08:26→19:38)
[2020-08-17] MEDS: Zinc Sulfate 220 MG (50mg elemental Zinc) Cap PO SCH (08:26)
[2020-08-17] MEDS: Lactobacillus Rhamnosus GG (Probiotic) Cap PO SCH (08:26)
[2020-08-18] MEDS: OXYBUTYNIN 10 MG PO SCH (07:52)
[2020-08-18] MEDS: BACLOFEN 10 MG PO SCH ×3 (07:52→20:05)
[2020-08-18] MEDS: Multivitamins with Iron/Calcium/Folic Acid/Minerals Tab PO SCH (07:53)
[2020-08-18] MEDS: Acetaminophen 325 MG Tab PO SCH ×2 (07:54→20:05)
[2020-08-18] MEDS: Cyanocobalamin (Vitamin B12) 250 MCG Tab PO SCH (07:56)
[2020-08-18] MEDS: Ascorbic Acid 500 MG Tab PO SCH (07:56)
[2020-08-18] MEDS: Lactobacillus Rhamnosus GG (Probiotic) Cap PO SCH (07:56)
[2020-08-18] MEDS: Cholecalciferol (Vitamin D3) 25 MCG Tab PO SCH (07:56)
[2020-08-18] MEDS: Zinc Sulfate 220 MG (50mg elemental Zinc) Cap PO SCH (07:57)
[2020-08-19] MEDS: OXYBUTYNIN 10 MG PO SCH (07:32)
[2020-08-19] MEDS: BACLOFEN 10 MG PO SCH ×3 (07:32→19:34)
[2020-08-19] MEDS: Acetaminophen 325 MG Tab PO SCH ×2 (07:33→19:34)
[2020-08-19] MEDS: Multivitamins with Iron/Calcium/Folic Acid/Minerals Tab PO SCH (07:33)
[2020-08-19] MEDS: Zinc Sulfate 220 MG (50mg elemental Zinc) Cap PO SCH (07:33)
[2020-08-19] MEDS: Cholecalciferol (Vitamin D3) 25 MCG Tab PO SCH (07:33)
[2020-08-19] MEDS: Cyanocobalamin (Vitamin B12) 250 MCG Tab PO SCH (07:33)
[2020-08-19] MEDS: Lactobacillus Rhamnosus GG (Probiotic) Cap PO SCH (07:33)
[2020-08-19] MEDS: Ascorbic Acid 500 MG Tab PO SCH (07:33)
[2020-08-20] MEDS: BACLOFEN 10 MG PO SCH ×4 (05:55→19:47)
[2020-08-20] MEDS: Acetaminophen 325 MG Tab PO SCH ×3 (05:55→19:49)
[2020-08-20] MEDS: Multivitamins with Iron/Calcium/Folic Acid/Minerals Tab PO SCH (18:06)
[2020-08-20] MEDS: OXYBUTYNIN 10 MG PO SCH (18:06)
[2020-08-20] MEDS: Cholecalciferol (Vitamin D3) 25 MCG Tab PO SCH (18:07)
[2020-08-20] MEDS: Lactobacillus Rhamnosus GG (Probiotic) Cap PO SCH (18:07)
[2020-08-20] MEDS: Cyanocobalamin (Vitamin B12) 250 MCG Tab PO SCH (18:07)
[2020-08-20] MEDS: Ascorbic Acid 500 MG Tab PO SCH (18:07)
[2020-08-20] MEDS: Zinc Sulfate 220 MG (50mg elemental Zinc) Cap PO SCH (18:07)
[2020-08-21] MEDS: OXYBUTYNIN 10 MG PO SCH (07:44)
[2020-08-21] MEDS: BACLOFEN 10 MG PO SCH ×3 (07:44→19:27)
[2020-08-21] MEDS: Zinc Sulfate 220 MG (50mg elemental Zinc) Cap PO SCH (07:45)
[2020-08-21] MEDS: Multivitamins with Iron/Calcium/Folic Acid/Minerals Tab PO SCH (07:45)
[2020-08-21] MEDS: Cyanocobalamin (Vitamin B12) 250 MCG Tab PO SCH (07:45)
[2020-08-21] MEDS: Ascorbic Acid 500 MG Tab PO SCH (07:45)
[2020-08-21] MEDS: Lactobacillus Rhamnosus GG (Probiotic) Cap PO SCH (07:45)
[2020-08-21] MEDS: Cholecalciferol (Vitamin D3) 25 MCG Tab PO SCH (07:45)
[2020-08-21] MEDS: Acetaminophen 325 MG Tab PO SCH ×2 (07:46→19:28)
[2020-08-22] MEDS: Zinc Sulfate 220 MG (50mg elemental Zinc) Cap PO SCH (07:23)
[2020-08-22] MEDS: Cyanocobalamin (Vitamin B12) 250 MCG Tab PO SCH (07:23)
[2020-08-22] MEDS: Ascorbic Acid 500 MG Tab PO SCH (07:24)
[2020-08-22] MEDS: Cholecalciferol (Vitamin D3) 25 MCG Tab PO SCH (07:24)
[2020-08-22] MEDS: OXYBUTYNIN 10 MG PO SCH (07:24)
[2020-08-22] MEDS: Multivitamins with Iron/Calcium/Folic Acid/Minerals Tab PO SCH (07:24)
[2020-08-22] MEDS: Acetaminophen 325 MG Tab PO SCH ×2 (07:24→19:25)
[2020-08-22] MEDS: BACLOFEN 10 MG PO SCH ×3 (07:24→19:25)
[2020-08-22] MEDS: Lactobacillus Rhamnosus GG (Probiotic) Cap PO SCH (07:24)
[2020-08-23] MEDS: Zinc Sulfate 220 MG (50mg elemental Zinc) Cap PO SCH (07:43)
[2020-08-23] MEDS: Cholecalciferol (Vitamin D3) 25 MCG Tab PO SCH (07:43)
[2020-08-23] MEDS: Ascorbic Acid 500 MG Tab PO SCH (07:43)
[2020-08-23] MEDS: Lactobacillus Rhamnosus GG (Probiotic) Cap PO SCH (07:43)
[2020-08-23] MEDS: Cyanocobalamin (Vitamin B12) 250 MCG Tab PO SCH (07:43)
[2020-08-23] MEDS: Multivitamins with Iron/Calcium/Folic Acid/Minerals Tab PO SCH (07:43)
[2020-08-23] MEDS: BACLOFEN 10 MG PO SCH ×3 (07:44→19:27)
[2020-08-23] MEDS: Acetaminophen 325 MG Tab PO SCH ×2 (07:44→19:27)
[2020-08-23] MEDS: OXYBUTYNIN 10 MG PO SCH (07:44)
[2020-08-24] MEDS: BACLOFEN 10 MG PO SCH ×3 (07:22→19:30)
[2020-08-24] MEDS: OXYBUTYNIN 10 MG PO SCH (07:22)
[2020-08-24] MEDS: Cyanocobalamin (Vitamin B12) 250 MCG Tab PO SCH (07:23)
[2020-08-24] MEDS: Cholecalciferol (Vitamin D3) 25 MCG Tab PO SCH (07:23)
[2020-08-24] MEDS: Acetaminophen 325 MG Tab PO SCH ×2 (07:23→19:30)
[2020-08-24] MEDS: Zinc Sulfate 220 MG (50mg elemental Zinc) Cap PO SCH (07:23)
[2020-08-24] MEDS: Multivitamins with Iron/Calcium/Folic Acid/Minerals Tab PO SCH (07:23)
[2020-08-24] MEDS: Lactobacillus Rhamnosus GG (Probiotic) Cap PO SCH (07:23)
[2020-08-24] MEDS: Ascorbic Acid 500 MG Tab PO SCH (07:24)
[2020-08-25] MEDS: OXYBUTYNIN 10 MG PO SCH (08:55)
[2020-08-25] MEDS: BACLOFEN 10 MG PO SCH ×3 (08:55→19:49)
[2020-08-25] MEDS: Multivitamins with Iron/Calcium/Folic Acid/Minerals Tab PO SCH (08:56)
[2020-08-25] MEDS: Cyanocobalamin (Vitamin B12) 250 MCG Tab PO SCH (08:56)
[2020-08-25] MEDS: Zinc Sulfate 220 MG (50mg elemental Zinc) Cap PO SCH (08:56)
[2020-08-25] MEDS: Acetaminophen 325 MG Tab PO SCH ×2 (08:56→19:47)
[2020-08-25] MEDS: Lactobacillus Rhamnosus GG (Probiotic) Cap PO SCH (08:56)
[2020-08-25] MEDS: Ascorbic Acid 500 MG Tab PO SCH (08:56)
[2020-08-25] MEDS: Miconazole 2% Top Powder 45 GM Container TOP PRN (08:57)
[2020-08-25] MEDS: Cholecalciferol (Vitamin D3) 25 MCG Tab PO SCH (08:57)
[2020-08-26] MEDS: BACLOFEN 10 MG PO SCH ×3 (08:33→20:35)
[2020-08-26] MEDS: OXYBUTYNIN 10 MG PO SCH (08:33)
[2020-08-26] MEDS: Acetaminophen 325 MG Tab PO SCH ×2 (08:33→20:36)
[2020-08-26] MEDS: Lactobacillus Rhamnosus GG (Probiotic) Cap PO SCH (08:34)
[2020-08-26] MEDS: Cyanocobalamin (Vitamin B12) 250 MCG Tab PO SCH (08:34)
[2020-08-26] MEDS: Cholecalciferol (Vitamin D3) 25 MCG Tab PO SCH (08:34)
[2020-08-26] MEDS: Ascorbic Acid 500 MG Tab PO SCH (08:34)
[2020-08-26] MEDS: Zinc Sulfate 220 MG (50mg elemental Zinc) Cap PO SCH (08:34)
[2020-08-26] MEDS: Multivitamins with Iron/Calcium/Folic Acid/Minerals Tab PO SCH (08:34)
[2020-08-26] MEDS: Miconazole 2% Top Powder 45 GM Container TOP PRN (08:35)
[2020-08-27] MEDS: OXYBUTYNIN 10 MG PO SCH (09:02)
[2020-08-27] MEDS: Ascorbic Acid 500 MG Tab PO SCH (09:03)
[2020-08-27] MEDS: Cholecalciferol (Vitamin D3) 25 MCG Tab PO SCH (09:03)
[2020-08-27] MEDS: Multivitamins with Iron/Calcium/Folic Acid/Minerals Tab PO SCH (09:03)
[2020-08-27] MEDS: Acetaminophen 325 MG Tab PO SCH ×2 (09:03→19:45)
[2020-08-27] MEDS: Zinc Sulfate 220 MG (50mg elemental Zinc) Cap PO SCH (09:03)
[2020-08-27] MEDS: Lactobacillus Rhamnosus GG (Probiotic) Cap PO SCH (09:03)
[2020-08-27] MEDS: BACLOFEN 10 MG PO SCH ×3 (09:03→19:46)
[2020-08-27] MEDS: Cyanocobalamin (Vitamin B12) 250 MCG Tab PO SCH (09:03)
[2020-08-28] MEDS: OXYBUTYNIN 10 MG PO SCH (07:38)
[2020-08-28] MEDS: BACLOFEN 10 MG PO SCH ×3 (07:38→19:13)
[2020-08-28] MEDS: Acetaminophen 325 MG Tab PO SCH ×2 (07:39→19:12)
[2020-08-28] MEDS: Multivitamins with Iron/Calcium/Folic Acid/Minerals Tab PO SCH (07:39)
[2020-08-28] MEDS: Zinc Sulfate 220 MG (50mg elemental Zinc) Cap PO SCH (07:39)
[2020-08-28] MEDS: Ascorbic Acid 500 MG Tab PO SCH (07:39)
[2020-08-28] MEDS: Lactobacillus Rhamnosus GG (Probiotic) Cap PO SCH (07:39)
[2020-08-28] MEDS: Cholecalciferol (Vitamin D3) 25 MCG Tab PO SCH (07:39)
[2020-08-28] MEDS: Cyanocobalamin (Vitamin B12) 250 MCG Tab PO SCH (07:39)
[2020-08-29] MEDS: Acetaminophen 325 MG Tab PO SCH ×2 (07:43→20:05)
[2020-08-29] MEDS: OXYBUTYNIN 10 MG PO SCH (07:43)
[2020-08-29] MEDS: BACLOFEN 10 MG PO SCH ×3 (07:43→20:05)
[2020-08-29] MEDS: Cyanocobalamin (Vitamin B12) 250 MCG Tab PO SCH (07:44)
[2020-08-29] MEDS: Multivitamins with Iron/Calcium/Folic Acid/Minerals Tab PO SCH (07:44)
[2020-08-29] MEDS: Cholecalciferol (Vitamin D3) 25 MCG Tab PO SCH (07:44)
[2020-08-29] MEDS: Lactobacillus Rhamnosus GG (Probiotic) Cap PO SCH (07:44)
[2020-08-29] MEDS: Zinc Sulfate 220 MG (50mg elemental Zinc) Cap PO SCH (07:44)
[2020-08-29] MEDS: Ascorbic Acid 500 MG Tab PO SCH (07:45)
[2020-08-30] MEDS: OXYBUTYNIN 10 MG PO SCH (07:49)
[2020-08-30] MEDS: BACLOFEN 10 MG PO SCH ×3 (07:50→19:44)
[2020-08-30] MEDS: Lactobacillus Rhamnosus GG (Probiotic) Cap PO SCH (07:51)
[2020-08-30] MEDS: Cyanocobalamin (Vitamin B12) 250 MCG Tab PO SCH (07:51)
[2020-08-30] MEDS: Acetaminophen 325 MG Tab PO SCH ×2 (07:51→19:44)
[2020-08-30] MEDS: Cholecalciferol (Vitamin D3) 25 MCG Tab PO SCH (07:51)
[2020-08-30] MEDS: Multivitamins with Iron/Calcium/Folic Acid/Minerals Tab PO SCH (07:51)
[2020-08-30] MEDS: Zinc Sulfate 220 MG (50mg elemental Zinc) Cap PO SCH (07:51)
[2020-08-30] MEDS: Ascorbic Acid 500 MG Tab PO SCH (07:51)
[2020-08-31] MEDS: BACLOFEN 10 MG PO SCH ×3 (07:43→19:38)
[2020-08-31] MEDS: OXYBUTYNIN 10 MG PO SCH (07:43)
[2020-08-31] MEDS: Multivitamins with Iron/Calcium/Folic Acid/Minerals Tab PO SCH (07:44)
[2020-08-31] MEDS: Lactobacillus Rhamnosus GG (Probiotic) Cap PO SCH (07:44)
[2020-08-31] MEDS: Zinc Sulfate 220 MG (50mg elemental Zinc) Cap PO SCH (07:44)
[2020-08-31] MEDS: Acetaminophen 325 MG Tab PO SCH ×2 (07:44→19:38)
[2020-08-31] MEDS: Cholecalciferol (Vitamin D3) 25 MCG Tab PO SCH (07:44)
[2020-08-31] MEDS: Cyanocobalamin (Vitamin B12) 250 MCG Tab PO SCH (07:44)
[2020-08-31] MEDS: Ascorbic Acid 500 MG Tab PO SCH (07:44)
[2020-09-01] MEDS: BACLOFEN 10 MG PO SCH ×3 (07:30→20:03)
[2020-09-01] MEDS: Cyanocobalamin (Vitamin B12) 250 MCG Tab PO SCH (07:31)
[2020-09-01] MEDS: OXYBUTYNIN 10 MG PO SCH (07:31)
[2020-09-01] MEDS: Cholecalciferol (Vitamin D3) 25 MCG Tab PO SCH (07:31)
[2020-09-01] MEDS: Multivitamins with Iron/Calcium/Folic Acid/Minerals Tab PO SCH (07:32)
[2020-09-01] MEDS: Ascorbic Acid 500 MG Tab PO SCH (07:32)
[2020-09-01] MEDS: Zinc Sulfate 220 MG (50mg elemental Zinc) Cap PO SCH (07:32)
[2020-09-01] MEDS: Lactobacillus Rhamnosus GG (Probiotic) Cap PO SCH (07:32)
[2020-09-01] MEDS: Acetaminophen 325 MG Tab PO SCH ×2 (07:32→20:03)
[2020-09-02] MEDS: OXYBUTYNIN 10 MG PO SCH (08:50)
[2020-09-02] MEDS: BACLOFEN 10 MG PO SCH ×3 (08:50→19:34)
[2020-09-02] MEDS: Ascorbic Acid 500 MG Tab PO SCH (08:51)
[2020-09-02] MEDS: Acetaminophen 325 MG Tab PO SCH ×2 (08:51→19:35)
[2020-09-02] MEDS: Cholecalciferol (Vitamin D3) 25 MCG Tab PO SCH (08:51)
[2020-09-02] MEDS: Multivitamins with Iron/Calcium/Folic Acid/Minerals Tab PO SCH (08:51)
[2020-09-02] MEDS: Zinc Sulfate 220 MG (50mg elemental Zinc) Cap PO SCH (08:52)
[2020-09-02] MEDS: Lactobacillus Rhamnosus GG (Probiotic) Cap PO SCH (08:52)
[2020-09-02] MEDS: Cyanocobalamin (Vitamin B12) 250 MCG Tab PO SCH (08:52)
[2020-09-03] MEDS: Lactobacillus Rhamnosus GG (Probiotic) Cap PO SCH (08:35)
[2020-09-03] MEDS: Cyanocobalamin (Vitamin B12) 250 MCG Tab PO SCH (08:35)
[2020-09-03] MEDS: Zinc Sulfate 220 MG (50mg elemental Zinc) Cap PO SCH (08:35)
[2020-09-03] MEDS: Multivitamins with Iron/Calcium/Folic Acid/Minerals Tab PO SCH (08:36)
[2020-09-03] MEDS: Ascorbic Acid 500 MG Tab PO SCH (08:36)
[2020-09-03] MEDS: Cholecalciferol (Vitamin D3) 25 MCG Tab PO SCH (08:36)
[2020-09-03] MEDS: Acetaminophen 325 MG Tab PO SCH ×2 (08:36→19:47)
[2020-09-03] MEDS: OXYBUTYNIN 10 MG PO SCH (08:38)
[2020-09-03] MEDS: BACLOFEN 10 MG PO SCH ×3 (08:38→19:46)
[2020-09-04] MEDS: Zinc Sulfate 220 MG (50mg elemental Zinc) Cap PO SCH (08:53)
[2020-09-04] MEDS: BACLOFEN 10 MG PO SCH ×3 (08:53→20:16)
[2020-09-04] MEDS: OXYBUTYNIN 10 MG PO SCH (08:53)
[2020-09-04] MEDS: Cyanocobalamin (Vitamin B12) 250 MCG Tab PO SCH (08:53)
[2020-09-04] MEDS: Ascorbic Acid 500 MG Tab PO SCH (08:54)
[2020-09-04] MEDS: Lactobacillus Rhamnosus GG (Probiotic) Cap PO SCH (08:54)
[2020-09-04] MEDS: Cholecalciferol (Vitamin D3) 25 MCG Tab PO SCH (08:54)
[2020-09-04] MEDS: Acetaminophen 325 MG Tab PO SCH ×2 (08:54→20:15)
[2020-09-04] MEDS: Multivitamins with Iron/Calcium/Folic Acid/Minerals Tab PO SCH (08:54)
[2020-09-05] MEDS: OXYBUTYNIN 10 MG PO SCH (09:47)
[2020-09-05] MEDS: Cyanocobalamin (Vitamin B12) 250 MCG Tab PO SCH (09:48)
[2020-09-05] MEDS: Cholecalciferol (Vitamin D3) 25 MCG Tab PO SCH (09:48)
[2020-09-05] MEDS: Zinc Sulfate 220 MG (50mg elemental Zinc) Cap PO SCH (09:48)
[2020-09-05] MEDS: BACLOFEN 10 MG PO SCH ×3 (09:48→20:06)
[2020-09-05] MEDS: Ascorbic Acid 500 MG Tab PO SCH (09:48)
[2020-09-05] MEDS: Acetaminophen 325 MG Tab PO SCH ×2 (09:48→20:05)
[2020-09-05] MEDS: Multivitamins with Iron/Calcium/Folic Acid/Minerals Tab PO SCH (09:49)
[2020-09-05] MEDS: Lactobacillus Rhamnosus GG (Probiotic) Cap PO SCH (09:49)
[2020-09-06] MEDS: Lactobacillus Rhamnosus GG (Probiotic) Cap PO SCH (09:12)
[2020-09-06] MEDS: Cholecalciferol (Vitamin D3) 25 MCG Tab PO SCH (09:12)
[2020-09-06] MEDS: Acetaminophen 325 MG Tab PO SCH ×2 (09:12→19:52)
[2020-09-06] MEDS: OXYBUTYNIN 10 MG PO SCH (09:12)
[2020-09-06] MEDS: Cyanocobalamin (Vitamin B12) 250 MCG Tab PO SCH (09:12)
[2020-09-06] MEDS: BACLOFEN 10 MG PO SCH ×3 (09:12→19:53)
[2020-09-06] MEDS: Zinc Sulfate 220 MG (50mg elemental Zinc) Cap PO SCH (09:12)
[2020-09-06] MEDS: Multivitamins with Iron/Calcium/Folic Acid/Minerals Tab PO SCH (09:13)
[2020-09-06] MEDS: Ascorbic Acid 500 MG Tab PO SCH (09:13)
[2020-09-07] MEDS: OXYBUTYNIN 10 MG PO SCH (09:21)
[2020-09-07] MEDS: Lactobacillus Rhamnosus GG (Probiotic) Cap PO SCH (09:21)
[2020-09-07] MEDS: Cyanocobalamin (Vitamin B12) 250 MCG Tab PO SCH (09:21)
[2020-09-07] MEDS: Cholecalciferol (Vitamin D3) 25 MCG Tab PO SCH (09:21)
[2020-09-07] MEDS: BACLOFEN 10 MG PO SCH ×3 (09:21→20:14)
[2020-09-07] MEDS: Ascorbic Acid 500 MG Tab PO SCH (09:22)
[2020-09-07] MEDS: Acetaminophen 325 MG Tab PO SCH ×2 (09:22→20:12)
[2020-09-07] MEDS: Multivitamins with Iron/Calcium/Folic Acid/Minerals Tab PO SCH (09:22)
[2020-09-07] MEDS: Zinc Sulfate 220 MG (50mg elemental Zinc) Cap PO SCH (09:22)
[2020-09-08] MEDS: BACLOFEN 10 MG PO SCH ×3 (08:50→19:29)
[2020-09-08] MEDS: Multivitamins with Iron/Calcium/Folic Acid/Minerals Tab PO SCH (08:50)
[2020-09-08] MEDS: Lactobacillus Rhamnosus GG (Probiotic) Cap PO SCH (08:50)
[2020-09-08] MEDS: Cholecalciferol (Vitamin D3) 25 MCG Tab PO SCH (08:50)
[2020-09-08] MEDS: Zinc Sulfate 220 MG (50mg elemental Zinc) Cap PO SCH (08:50)
[2020-09-08] MEDS: OXYBUTYNIN 10 MG PO SCH (08:50)
[2020-09-08] MEDS: Cyanocobalamin (Vitamin B12) 250 MCG Tab PO SCH (08:50)
[2020-09-08] MEDS: Ascorbic Acid 500 MG Tab PO SCH (08:51)
[2020-09-08] MEDS: Acetaminophen 325 MG Tab PO SCH ×2 (08:51→19:28)
[2020-09-09] MEDS: Acetaminophen 325 MG Tab PO SCH ×2 (07:46→19:34)
[2020-09-09] MEDS: Cyanocobalamin (Vitamin B12) 250 MCG Tab PO SCH (07:46)
[2020-09-09] MEDS: Zinc Sulfate 220 MG (50mg elemental Zinc) Cap PO SCH (07:46)
[2020-09-09] MEDS: Lactobacillus Rhamnosus GG (Probiotic) Cap PO SCH (07:46)
[2020-09-09] MEDS: Multivitamins with Iron/Calcium/Folic Acid/Minerals Tab PO SCH (07:46)
[2020-09-09] MEDS: Cholecalciferol (Vitamin D3) 25 MCG Tab PO SCH (07:47)
[2020-09-09] MEDS: Ascorbic Acid 500 MG Tab PO SCH (07:47)
[2020-09-09] MEDS: OXYBUTYNIN 10 MG PO SCH (07:49)
[2020-09-09] MEDS: BACLOFEN 10 MG PO SCH ×3 (07:50→19:35)
[2020-09-10] MEDS: OXYBUTYNIN 10 MG PO SCH (08:19)
[2020-09-10] MEDS: BACLOFEN 10 MG PO SCH ×3 (08:19→19:34)
[2020-09-10] MEDS: Lactobacillus Rhamnosus GG (Probiotic) Cap PO SCH (08:20)
[2020-09-10] MEDS: Multivitamins with Iron/Calcium/Folic Acid/Minerals Tab PO SCH (08:20)
[2020-09-10] MEDS: Zinc Sulfate 220 MG (50mg elemental Zinc) Cap PO SCH (08:20)
[2020-09-10] MEDS: Cyanocobalamin (Vitamin B12) 250 MCG Tab PO SCH (08:20)
[2020-09-10] MEDS: Acetaminophen 325 MG Tab PO SCH ×2 (08:20→19:36)
[2020-09-10] MEDS: Cholecalciferol (Vitamin D3) 25 MCG Tab PO SCH (08:21)
[2020-09-10] MEDS: Ascorbic Acid 500 MG Tab PO SCH (08:21)
[2020-09-11] MEDS: BACLOFEN 10 MG PO SCH ×3 (07:57→20:03)
[2020-09-11] MEDS: OXYBUTYNIN 10 MG PO SCH (07:57)
[2020-09-11] MEDS: Zinc Sulfate 220 MG (50mg elemental Zinc) Cap PO SCH (07:58)
[2020-09-11] MEDS: Multivitamins with Iron/Calcium/Folic Acid/Minerals Tab PO SCH (07:58)
[2020-09-11] MEDS: Cholecalciferol (Vitamin D3) 25 MCG Tab PO SCH (07:58)
[2020-09-11] MEDS: Acetaminophen 325 MG Tab PO SCH ×2 (07:58→20:04)
[2020-09-11] MEDS: Lactobacillus Rhamnosus GG (Probiotic) Cap PO SCH (07:58)
[2020-09-11] MEDS: Cyanocobalamin (Vitamin B12) 250 MCG Tab PO SCH (07:58)
[2020-09-11] MEDS: Ascorbic Acid 500 MG Tab PO SCH (07:58)
[2020-09-12] MEDS: BACLOFEN 10 MG PO SCH ×3 (07:33→19:53)
[2020-09-12] MEDS: Cholecalciferol (Vitamin D3) 25 MCG Tab PO SCH (07:33)
[2020-09-12] MEDS: Multivitamins with Iron/Calcium/Folic Acid/Minerals Tab PO SCH (07:33)
[2020-09-12] MEDS: OXYBUTYNIN 10 MG PO SCH (07:33)
[2020-09-12] MEDS: Zinc Sulfate 220 MG (50mg elemental Zinc) Cap PO SCH (07:33)
[2020-09-12] MEDS: Cyanocobalamin (Vitamin B12) 250 MCG Tab PO SCH (07:34)
[2020-09-12] MEDS: Acetaminophen 325 MG Tab PO SCH ×2 (07:34→19:53)
[2020-09-12] MEDS: Lactobacillus Rhamnosus GG (Probiotic) Cap PO SCH (07:34)
[2020-09-12] MEDS: Ascorbic Acid 500 MG Tab PO SCH (07:34)
[2020-09-13] MEDS: Cholecalciferol (Vitamin D3) 25 MCG Tab PO SCH (07:20)
[2020-09-13] MEDS: Zinc Sulfate 220 MG (50mg elemental Zinc) Cap PO SCH (07:20)
[2020-09-13] MEDS: Ascorbic Acid 500 MG Tab PO SCH (07:20)
[2020-09-13] MEDS: Lactobacillus Rhamnosus GG (Probiotic) Cap PO SCH (07:20)
[2020-09-13] MEDS: Acetaminophen 325 MG Tab PO SCH ×2 (07:20→20:34)
[2020-09-13] MEDS: Cyanocobalamin (Vitamin B12) 250 MCG Tab PO SCH (07:20)
[2020-09-13] MEDS: Multivitamins with Iron/Calcium/Folic Acid/Minerals Tab PO SCH (07:20)
[2020-09-13] MEDS: BACLOFEN 10 MG PO SCH ×3 (07:21→20:34)
[2020-09-13] MEDS: OXYBUTYNIN 10 MG PO SCH (07:21)
[2020-09-13] MEDS ORDERED: Lactobacillus Rhamnosus GG (Probiotic) Cap PO SCH (20:30)
[2020-09-13] MEDS: Nitrofurantoin Monohydrate/Macrocrystalline 100 MG Cap PO SCH (20:34)
--- NOTE | 2020-09-13 20:58 | PCM.SN.2 ---
- Free Text/Narrative Note: Reported to provider patient's urine was foul. UA sent and positive for UTI. Patient started on Macrobid 100 mg BID for 5 days.
[2020-09-14] MEDS: Cholecalciferol (Vitamin D3) 25 MCG Tab PO SCH (07:42)
[2020-09-14] MEDS: OXYBUTYNIN 10 MG PO SCH (07:43)
[2020-09-14] MEDS: Acetaminophen 325 MG Tab PO SCH ×2 (07:43→19:41)
[2020-09-14] MEDS: Zinc Sulfate 220 MG (50mg elemental Zinc) Cap PO SCH (07:43)
[2020-09-14] MEDS: Nitrofurantoin Monohydrate/Macrocrystalline 100 MG Cap PO SCH ×2 (07:43→19:41)
[2020-09-14] MEDS: Ascorbic Acid 500 MG Tab PO SCH (07:43)
[2020-09-14] MEDS: Multivitamins with Iron/Calcium/Folic Acid/Minerals Tab PO SCH (07:43)
[2020-09-14] MEDS: BACLOFEN 10 MG PO SCH ×3 (07:43→19:40)
[2020-09-14] MEDS: Cyanocobalamin (Vitamin B12) 250 MCG Tab PO SCH (07:43)
[2020-09-14] MEDS: Lactobacillus Rhamnosus GG (Probiotic) Cap PO SCH ×2 (11:22→17:32)
[2020-09-15] MEDS: Acetaminophen 325 MG Tab PO SCH ×2 (07:53→19:21)
[2020-09-15] MEDS: Zinc Sulfate 220 MG (50mg elemental Zinc) Cap PO SCH (07:53)
[2020-09-15] MEDS: Cyanocobalamin (Vitamin B12) 250 MCG Tab PO SCH (07:54)
[2020-09-15] MEDS: Nitrofurantoin Monohydrate/Macrocrystalline 100 MG Cap PO SCH ×2 (07:55→19:21)
[2020-09-15] MEDS: Ascorbic Acid 500 MG Tab PO SCH (07:56)
[2020-09-15] MEDS: Cholecalciferol (Vitamin D3) 25 MCG Tab PO SCH (07:56)
[2020-09-15] MEDS: Multivitamins with Iron/Calcium/Folic Acid/Minerals Tab PO SCH (07:56)
[2020-09-15] MEDS: OXYBUTYNIN 10 MG PO SCH (08:00)
[2020-09-15] MEDS: BACLOFEN 10 MG PO SCH ×3 (08:00→19:20)
[2020-09-15] MEDS: Lactobacillus Rhamnosus GG (Probiotic) Cap PO SCH ×2 (11:54→18:15)
[2020-09-16] MEDS: BACLOFEN 10 MG PO SCH ×3 (07:36→19:26)
[2020-09-16] MEDS: Zinc Sulfate 220 MG (50mg elemental Zinc) Cap PO SCH (07:37)
[2020-09-16] MEDS: OXYBUTYNIN 10 MG PO SCH (07:37)
[2020-09-16] MEDS: Acetaminophen 325 MG Tab PO SCH ×2 (07:37→19:28)
[2020-09-16] MEDS: Multivitamins with Iron/Calcium/Folic Acid/Minerals Tab PO SCH (07:38)
[2020-09-16] MEDS: Nitrofurantoin Monohydrate/Macrocrystalline 100 MG Cap PO SCH ×2 (07:38→19:27)
[2020-09-16] MEDS: Ascorbic Acid 500 MG Tab PO SCH (07:38)
[2020-09-16] MEDS: Cyanocobalamin (Vitamin B12) 250 MCG Tab PO SCH (07:39)
[2020-09-16] MEDS: Cholecalciferol (Vitamin D3) 25 MCG Tab PO SCH (07:39)
[2020-09-16] MEDS: Lactobacillus Rhamnosus GG (Probiotic) Cap PO SCH ×2 (11:13→17:41)
--- NOTE | 2020-09-16 15:24 | PCM.PN ---
- General Info Date of Service: 09/16/20 Subjective Update: 45 yo male on senior care swing bed seen today for routine follow-up. Had foul smelling urine with a positive u/a over the weekend. Apparently was not sent for culture. Patient denies any current concerns. Also did not have concerns over the weekend. He has been following up with the wound clinic with no concerns. He otherwise has had no interval issues. He denies any issues with allergies. No pain at this time. No fever, chills, symptoms of illness, or issu es with his suprapubic catheter or ostomy. He denies concerns. - Review of Systems General: Reports: No Symptoms HEENT: Reports: No Symptoms Pulmonary: Reports: No Symptoms Cardiovascular: Reports: No Symptoms Gastrointestinal: Reports: No Symptoms Genitourinary: Reports: No Symptoms Musculoskeletal: Reports: No Symptoms Skin: Reports: No Symptoms Neurological: Reports: No Symptoms Psychiatric: Reports: No Symptoms - Patient Data Vitals - Most Recent: Last Vital Signs Temp 36.3 C 09/16/20 06:00 Pulse 70 09/16/20 06:00 Resp 16 09/16/20 06:00 BP 133/80 09/16/20 06:00 Pulse Ox 97 09/16/20 06:00 Weight - Most Recent: 142.882 kg I&O - Last 24 Hours: Intake & Output 09/16/20 09/16/20 09/16/20 06:59 14:59 22:59 Intake Total 520 Output Total 1999 Balance -1999 536 Med Orders - Current: Current Medications Acetaminophen (Acetaminophen 325 Mg Tab) 650 mg PO BID [facility] Last Admin: 09/16/20 07:37 Dose: 650 mg Documented by: Acetaminophen (Acetaminophen 325 Mg Tab) 650 mg PO Q6H PRN PRN Reason: Pain Last Admin: 03/19/20 06:34 Dose: 650 mg Documented by: Ascorbic Acid (Ascorbic Acid 500 Mg Tab) 500 mg PO DAILY [facility] Last Admin: 09/16/20 07:38 Dose: 500 mg Documented by: Baclofen (Baclofen 10 Mg Tab (Own Supply)) 5 mg PO TID [facility] Last Admin: 09/16/20 11:13 Dose: 5 mg Documented by: Cholecalciferol (Cholecalciferol (Vitamin D3) 25 Mcg Tab) 100 mcg PO DAILY [facility] Last Admin: 09/16/20 07:39 Dose: 100 mcg Documented by: Cyanocobalamin (Cyanocobalamin (Vitamin B12) 250 Mcg Tab) 500 mcg PO DAILY [facility] Last Admin: 09/16/20 07:39 Dose: 500 mcg Documented by: Fluticasone Propionate (Fluticasone Propionate Nasal [place]) 0.33 ml NASBOTH BID [facility] Last Admin: 09/16/20 07:40 Dose: 1 spray Documented by: Lactobacillus Rhamnosus (Lactobacillus Rhamnosus Gg (Probiotic) Cap) 1 cap PO BID@1200,1800 [facility] Last Admin: 09/16/20 11:13 Dose: 1 cap Documented by: Miconazole (Miconazole 2% Top Powder 45 Gm Container) 0 gm TOP BID PRN PRN Reason: Rash Last Admin: 08/26/20 08:35 Dose: 1 applic Documented by: Multivitamins/Minerals (Multivitamins With Iron/Calcium/Folic Acid/Minerals Tab) 1 tab PO DAILY [facility] Last Admin: 09/16/20 07:38 Dose: 1 tab Documented by: Nitrofurantoin Macrocrystals (Nitrofurantoin Monohydrate/Macrocrystalline 100 Mg Cap) 100 mg PO BID [facility] Stop: 09/18/20 20:01 Last Admin: 09/16/20 07:38 Dose: 100 mg Documented by: Oxybutynin.Er 10mg ( (Own Supply)) 1 each PO DAILY [facility] Last Admin: 09/16/20 07:37 Dose: 1 each Documented by: Biofreeze Topical 1 each TOP TID PRN PRN Reason: SHOULDER PAIN Last Admin: 08/22/20 12:15 Dose: 1 each Documented by: Senna/Docusate Sodium (Docusate Sodium/Sennosides 50-8.6 Mg Tab) 2 tab PO BEDTIME PRN PRN Reason: Constipation Last Admin: 06/22/20 20:31 Dose: 2 tab Documented by: Zinc Sulfate (Zinc Sulfate 220 Mg (50mg Elemental Zinc) Cap) 220 mg PO DAILY [facility] Last Admin: 09/16/20 07:37 Dose: 220 mg Documented by: Discontinued Medications Alteplase, Recombinant (Alteplase 2 Mg Vial) 2 mg IVPUSH ONETIME ONE Stop: 10/23/19 12:45 Last Admin: 10/23/19 13:30 Dose: 2 mg Documented by: Baclofen (Baclofen 10 Mg Tab) 5 mg PO TID [facility] Last Admin: 01/27/20 08:23 Dose: 5 mg Documented by: Baclofen (Baclofen 10 Mg Tab) 5 mg PO TID [facility] Stop: 11/21/19 20:00 Last Admin: 11/21/19 19:52 Dose: 5 mg Documented by: Carbamide Perox/Anhydrous Glycerin (Carbamide Peroxide 6.5% Otic Soln 15 Ml Bottle) 0.25 ml EARLF BID [facility] Stop: 05/05/20 08:00 Last Admin: 05/05/20 07:23 Dose: 1 drop Documented by: Clindamycin HCl (Clindamycin Hcl 150 Mg Cap) 150 mg PO TID [facility] Stop: 12/28/19 20:01 Last Admin: 12/19/19 09:26 Dose: 150 mg Documented by: Clindamycin HCl (Clindamycin Hcl 150 Mg Cap (Own Supply)) 150 mg PO TID [facility] Stop: 12/28/19 20:01 Last Admin: 12/28/19 21:15 Dose: Not Given Documented by: Clindamycin HCl (Clindamycin Hcl 150 Mg Cap) 150 mg PO ONETIME ONE Stop: 12/28/19 21:31 Last Admin: 12/28/19 21:34 Dose: 150 mg Documented by: Fluticasone Propionate (Fluticasone Propionate Nasal [place] 9.9 Ml Bottle) 0 ml NASBOTH BID [facility] Last Admin: 01/24/20 09:13 Dose: 1 ml Documented by: Fluticasone Propionate (Fluticasone Propionate Nasal [place] 9.9 Ml Bottle) 0.33 ml NASBOTH BID [facility] Last Admin: 06/11/20 07:31 Dose: 1 spray Documented by: Fluticasone Propionate (Fluticasone Propionate Nasal [place] 16 Gm Bottle) 0 gm NASBOTH BID [facility] Stop: 11/21/19 20:01 Last Admin: 11/21/19 19:51 Dose: 1 spray Documented by: Fluticasone Propionate (Fluticasone Propionate Nasal [place] 16 Gm Bottle) 0 gm NASBOTH BID [facility] Last Admin: 01/09/20 09:39 Dose: Not Given Documented by: Heparin Sodium (Porcine) (Heparin Sodium 100 Units/Ml 3 Ml Syringe) 300 unit FLUSH ASDIRECTED PRN PRN Reason: Keep Vein Open Last Admin: 08/12/20 06:45 Dose: 300 unit Documented by: Heparin Sodium (Porcine) (Heparin Sodium 100 Units/Ml 3 Ml Syringe) 300 unit FLUSH Q8H [facility] Stop: 11/25/19 23:59 Last Admin: 11/18/19 19:25 Dose: Not Given Documented by: Heparin Sodium (Porcine) (Heparin Sodium 100 Units/Ml 3 Ml Syringe) 300 unit FLUSH Q8H [facility] Stop: 11/25/19 23:59 Last Admin: 11/25/19 20:08 Dose: 300 unit Documented by: Piperacillin Sod/Tazobactam (Sod 4.5 gm/ Sodium Chloride) 100 mls @ 25 mls/hr IV Q8H [facility] Stop: 11/25/19 23:58 Last Admin: 11/18/19 09:46 Dose: Not Given Documented by: Piperacillin Sod/Tazobactam (Sod 4.5 gm/ Sodium Chloride) 100 mls @ 200 mls/hr IV ONETIME ONE Stop: 11/18/19 15:29 Last Admin: 11/18/19 15:07 Dose: 200 mls/hr Documented by: Piperacillin Sod/Tazobactam (Sod 4.5 gm/ Sodium Chloride) 100 mls @ 25 mls/hr IV Q8H [facility] Stop: 11/25/19 23:58 Last Admin: 11/25/19 23:20 Dose: 25 mls/hr Documented by: Lactobacillus Rhamnosus (Lactobacillus Rhamnosus Gg (Probiotic) Cap) 1 cap PO DAILY [facility] Last Admin: 09/13/20 07:20 Dose: 1 cap Documented by: Lactobacillus Rhamnosus (Lactobacillus Rhamnosus Gg (Probiotic) Cap) 1 cap PO BID [facility] Last Admin: 09/13/20 20:38 Dose: 1 cap Documented by: Lactobacillus Rhamnosus (Lactobacillus Rhamnosus Gg (Probiotic) Cap) 1 cap PO DAILY [facility] Last Admin: 12/20/19 09:12 Dose: 1 cap Documented by: Lactobacillus Rhamnosus (Lactobacillus Rhamnosus Gg (Probiotic) Cap) 1 cap PO BID@1000,2200 [facility] Stop: 01/11/20 22:01 Last Admin: 12/30/19 08:17 Dose: 1 cap Documented by: Lactobacillus Rhamnosus (Lactobacillus Rhamnosus Gg (Probiotic) Cap) 1 cap PO BID@0800,2000 [facility] Last Admin: 08/10/20 07:32 Dose: 1 cap Documented by: Clindamycin 300mg (Cap (Own Supply)) 1 each PO BID [facility] Stop: 03/22/20 08:01 Last Admin: 03/22/20 08:16 Dose: 1 each Documented by: Non-Formulary Medication (Non-Formulary Medication 1 Each) 1 each TOP TID PRN PRN Reason: Pain (mild 1-3) Biofreeze Topical * (Pt Own Med*) 0 each TOP TID [facility] Last Admin: 08/03/20 09:48 Dose: Not Given Documented by: Oxybutynin Chloride (Oxybutynin 5 Mg Tab.Er) 5 mg PO DAILY [facility] Last Admin: 04/22/20 08:49 Dose: 5 mg Documented by: Oxybutynin Chloride (Oxybutynin 5 Mg Tab.Er) 10 mg PO DAILY [facility] Stop: 05/02/20 08:01 Last Admin: 05/02/20 09:08 Dose: 10 mg Documented by: Oxybutynin Chloride (Oxybutynin 5 Mg Tab.Er) 5 mg PO ONETIME ONE Stop: 04/22/20 12:31 Last Admin: 04/22/20 13:43 Dose: 5 mg Documented by: Sodium Bicarbonate (Sodium Bicarbonate 8.4% 50 Meq/50 Ml Syringe) Confirm Administered Dose 50 meq .ROUTE .STK-MED ONE Stop: 11/02/19 12:42 Last Admin: 11/02/19 13:28 Dose: Not Given Documented by: Sodium Chloride (Sodium Chloride 0.9% 10 Ml Syringe) 10 ml IV ASDIRECTED PRN PRN Reason: Keep Vein Open Last Admin: 11/27/19 06:45 Dose: 10 ml Documented by: Zinc Gluconate (Zinc (Zinc Gluconate) 50 Mg Tab) 50 mg PO DAILY [facility] Last Admin: 03/19/20 11:20 Dose: Not Given Documented by: - Exam General: Alert, Oriented, Cooperative, No Acute Distress HEENT: Mucous Membr. Moist/[place] Neck: Supple, Trachea Midline, No Thyromegaly. No: Lymphadenopathy Lungs: Clear to Auscultation, Normal Respiratory Effort Cardiovascular: Regular Rate, Regular Rhythm, No Murmurs GI/Abdominal Exam: Normal Bowel Sounds, Soft, Non-Tender, No Organomegaly, No Distention, No Mass Extremities: Non-Tender, No Pedal Edema, Normal Capillary Refill Peripheral Pulses: 2+: Radial (L), Radial (R) Skin: Warm, Dry Neurological: No New Focal Deficit - Patient Data Result Diagrams: 11/27/19 06:44 11/27/19 06:44 Sepsis Event Note - Evaluation Sepsis Screening Result: No Definite Risk - Focused Exam Vital Signs: Vital Signs Temp Pulse Resp BP Pulse Ox 09/16/20 06:00 36.3 C 70 16 133/80 97 - Problem List & Annotations (1) Sacral decubitus ulcer SNOMED Code(s): 042793250 Code(s): L89.159 - PRESSURE ULCER OF SACRAL REGION, UNSPECIFIED STAGE Status: Acute Current Visit: No Qualifiers: Pressure injury stage: unspecified pressure injury stage Qualified Code(s): L89.159 - Pressure ulcer of sacral region, unspecified stage (2) Neurogenic bladder SNOMED Code(s): 933670453 Code(s): N31.9 - NEUROMUSCULAR DYSFUNCTION OF BLADDER, UNSPECIFIED Status: Chronic Current Visit: No (3) Chronic sinusitis SNOMED Code(s): 09986319 Code(s): J32.9 - CHRONIC SINUSITIS, UNSPECIFIED Status: Chronic Current Visit: No (4) Constipation SNOMED Code(s): 86027358 Code(s): K59.00 - CONSTIPATION, UNSPECIFIED Status: Chronic Current Visit: No (5) Hypertension SNOMED Code(s): 58935676 Code(s): I10 - ESSENTIAL (PRIMARY) HYPERTENSION Status: Chronic Current Visit: No (6) Multiple sclerosis SNOMED Code(s): 72860332 Code(s): G35 - MULTIPLE SCLEROSIS Status: Chronic Current Visit: No - Problem List Review Problem List Initiated/Reviewed/Updated: Yes - Assessment Assessment:: 44 yo male on senior care swing bed initially for wound cares related to a sacral pressure ulcer, now related to disposition planning. No current issues. - Plan Plan:: #1 Sacral decubitus ulcer - Continue cares and follow-up per wound clinic. #2 Neurogenic bladder - U/A was positive but this was taken off his existing suprapubic catheter. - Will d/c antibiotics as it is likely this was not necessary in the first place. - If any recurrence of symptoms, would do a culture and await those results prior to starting any further antibiotics. - Continue current suprapubic catheter cares. - Continue oxybutynin. #3 Chronic sinusitis #4 Constipation #5 Hypertension #6 MS - Continue current medications and neurology follow-ups as scheduled. - Will also get PT reordered. Patient is admitted to swing bed and will remain on swing bed until an appropriate alternative living environment is available for him. Case management continues to actively work on this. Code status is DNR/DNI - discussed on admiss ion. No indication for VTE prophylaxis as he is at his usual functional baseline.
[2020-09-17] MEDS: BACLOFEN 10 MG PO SCH ×3 (08:05→19:46)
[2020-09-17] MEDS: Nitrofurantoin Monohydrate/Macrocrystalline 100 MG Cap PO SCH ×2 (08:06→19:47)
[2020-09-17] MEDS: OXYBUTYNIN 10 MG PO SCH (08:07)
[2020-09-17] MEDS: Multivitamins with Iron/Calcium/Folic Acid/Minerals Tab PO SCH (08:08)
[2020-09-17] MEDS: Acetaminophen 325 MG Tab PO SCH ×2 (08:08→19:47)
[2020-09-17] MEDS: Cyanocobalamin (Vitamin B12) 250 MCG Tab PO SCH (08:09)
[2020-09-17] MEDS: Zinc Sulfate 220 MG (50mg elemental Zinc) Cap PO SCH (08:10)
[2020-09-17] MEDS: Cholecalciferol (Vitamin D3) 25 MCG Tab PO SCH (08:10)
[2020-09-17] MEDS: Ascorbic Acid 500 MG Tab PO SCH (08:10)
[2020-09-17] MEDS: Lactobacillus Rhamnosus GG (Probiotic) Cap PO SCH ×2 (11:19→17:39)
[2020-09-18] MEDS: BACLOFEN 10 MG PO SCH ×3 (07:28→19:40)
[2020-09-18] MEDS: OXYBUTYNIN 10 MG PO SCH (07:29)
[2020-09-18] MEDS: Multivitamins with Iron/Calcium/Folic Acid/Minerals Tab PO SCH (07:29)
[2020-09-18] MEDS: Acetaminophen 325 MG Tab PO SCH ×2 (07:29→19:39)
[2020-09-18] MEDS: Nitrofurantoin Monohydrate/Macrocrystalline 100 MG Cap PO SCH ×2 (07:29→19:39)
[2020-09-18] MEDS: Cyanocobalamin (Vitamin B12) 250 MCG Tab PO SCH (07:30)
[2020-09-18] MEDS: Zinc Sulfate 220 MG (50mg elemental Zinc) Cap PO SCH (07:30)
[2020-09-18] MEDS: Cholecalciferol (Vitamin D3) 25 MCG Tab PO SCH (07:30)
[2020-09-18] MEDS: Ascorbic Acid 500 MG Tab PO SCH (07:30)
[2020-09-18] MEDS: Lactobacillus Rhamnosus GG (Probiotic) Cap PO SCH ×2 (11:18→17:41)
[2020-09-19] MEDS: BACLOFEN 10 MG PO SCH ×3 (08:17→20:15)
[2020-09-19] MEDS: OXYBUTYNIN 10 MG PO SCH (08:17)
[2020-09-19] MEDS: Acetaminophen 325 MG Tab PO SCH ×2 (08:18→20:15)
[2020-09-19] MEDS: Multivitamins with Iron/Calcium/Folic Acid/Minerals Tab PO SCH (08:19)
[2020-09-19] MEDS: Cyanocobalamin (Vitamin B12) 250 MCG Tab PO SCH (08:19)
[2020-09-19] MEDS: Ascorbic Acid 500 MG Tab PO SCH (08:20)
[2020-09-19] MEDS: Cholecalciferol (Vitamin D3) 25 MCG Tab PO SCH (08:20)
[2020-09-19] MEDS: Zinc Sulfate 220 MG (50mg elemental Zinc) Cap PO SCH (08:20)
[2020-09-19] MEDS: Lactobacillus Rhamnosus GG (Probiotic) Cap PO SCH ×2 (12:07→17:57)
[2020-09-20] MEDS: BACLOFEN 10 MG PO SCH ×3 (07:45→19:50)
[2020-09-20] MEDS: OXYBUTYNIN 10 MG PO SCH (07:45)
[2020-09-20] MEDS: Zinc Sulfate 220 MG (50mg elemental Zinc) Cap PO SCH (07:46)
[2020-09-20] MEDS: Acetaminophen 325 MG Tab PO SCH ×2 (07:46→19:49)
[2020-09-20] MEDS: Cyanocobalamin (Vitamin B12) 250 MCG Tab PO SCH (07:46)
[2020-09-20] MEDS: Cholecalciferol (Vitamin D3) 25 MCG Tab PO SCH (07:46)
[2020-09-20] MEDS: Ascorbic Acid 500 MG Tab PO SCH (07:46)
[2020-09-20] MEDS: Multivitamins with Iron/Calcium/Folic Acid/Minerals Tab PO SCH (07:47)
[2020-09-20] MEDS: Lactobacillus Rhamnosus GG (Probiotic) Cap PO SCH ×2 (11:55→17:54)
[2020-09-21] MEDS: Cyanocobalamin (Vitamin B12) 250 MCG Tab PO SCH (07:39)
[2020-09-21] MEDS: BACLOFEN 10 MG PO SCH ×3 (07:39→19:54)
[2020-09-21] MEDS: OXYBUTYNIN 10 MG PO SCH (07:39)
[2020-09-21] MEDS: Multivitamins with Iron/Calcium/Folic Acid/Minerals Tab PO SCH (07:40)
[2020-09-21] MEDS: Ascorbic Acid 500 MG Tab PO SCH (07:40)
[2020-09-21] MEDS: Cholecalciferol (Vitamin D3) 25 MCG Tab PO SCH (07:40)
[2020-09-21] MEDS: Acetaminophen 325 MG Tab PO SCH ×2 (07:40→19:54)
[2020-09-21] MEDS: Zinc Sulfate 220 MG (50mg elemental Zinc) Cap PO SCH (07:40)
[2020-09-21] MEDS: Lactobacillus Rhamnosus GG (Probiotic) Cap PO SCH ×2 (14:25→18:03)
[2020-09-22] MEDS: BACLOFEN 10 MG PO SCH ×4 (06:06→19:54)
[2020-09-22] MEDS: Acetaminophen 325 MG Tab PO SCH ×3 (06:06→19:55)
[2020-09-22] MEDS: OXYBUTYNIN 10 MG PO SCH ×2 (06:06→08:49)
[2020-09-22] MEDS: Cholecalciferol (Vitamin D3) 25 MCG Tab PO SCH (08:48)
[2020-09-22] MEDS: Cyanocobalamin (Vitamin B12) 250 MCG Tab PO SCH (08:48)
[2020-09-22] MEDS: Zinc Sulfate 220 MG (50mg elemental Zinc) Cap PO SCH (08:48)
[2020-09-22] MEDS: Multivitamins with Iron/Calcium/Folic Acid/Minerals Tab PO SCH (08:48)
[2020-09-22] MEDS: Ascorbic Acid 500 MG Tab PO SCH (08:48)
[2020-09-22] MEDS: Lactobacillus Rhamnosus GG (Probiotic) Cap PO SCH ×2 (14:30→18:00)
[2020-09-23] MEDS: OXYBUTYNIN 10 MG PO SCH (08:01)
[2020-09-23] MEDS: Zinc Sulfate 220 MG (50mg elemental Zinc) Cap PO SCH (08:02)
[2020-09-23] MEDS: Ascorbic Acid 500 MG Tab PO SCH (08:02)
[2020-09-23] MEDS: BACLOFEN 10 MG PO SCH ×3 (08:02→19:32)
[2020-09-23] MEDS: Cholecalciferol (Vitamin D3) 25 MCG Tab PO SCH (08:02)
[2020-09-23] MEDS: Cyanocobalamin (Vitamin B12) 250 MCG Tab PO SCH (08:02)
[2020-09-23] MEDS: Multivitamins with Iron/Calcium/Folic Acid/Minerals Tab PO SCH (08:02)
[2020-09-23] MEDS: Acetaminophen 325 MG Tab PO SCH ×2 (08:03→19:32)
[2020-09-23] MEDS: Lactobacillus Rhamnosus GG (Probiotic) Cap PO SCH (19:32)
[2020-09-24] MEDS: Zinc Sulfate 220 MG (50mg elemental Zinc) Cap PO SCH (07:46)
[2020-09-24] MEDS: Acetaminophen 325 MG Tab PO SCH ×2 (07:48→19:45)
[2020-09-24] MEDS: Cholecalciferol (Vitamin D3) 25 MCG Tab PO SCH (07:49)
[2020-09-24] MEDS: Lactobacillus Rhamnosus GG (Probiotic) Cap PO SCH ×2 (07:49→19:45)
[2020-09-24] MEDS: Multivitamins with Iron/Calcium/Folic Acid/Minerals Tab PO SCH (07:50)
[2020-09-24] MEDS: Cyanocobalamin (Vitamin B12) 250 MCG Tab PO SCH (07:50)
[2020-09-24] MEDS: OXYBUTYNIN 10 MG PO SCH (07:56)
[2020-09-24] MEDS: BACLOFEN 10 MG PO SCH ×3 (07:56→19:46)
[2020-09-24] MEDS: Ascorbic Acid 500 MG Tab PO SCH (08:00)
[2020-09-25] MEDS: Zinc Sulfate 220 MG (50mg elemental Zinc) Cap PO SCH (07:32)
[2020-09-25] MEDS: Multivitamins with Iron/Calcium/Folic Acid/Minerals Tab PO SCH (07:32)
[2020-09-25] MEDS: BACLOFEN 10 MG PO SCH ×3 (07:32→20:31)
[2020-09-25] MEDS: OXYBUTYNIN 10 MG PO SCH (07:32)
[2020-09-25] MEDS: Lactobacillus Rhamnosus GG (Probiotic) Cap PO SCH ×2 (07:32→20:30)
[2020-09-25] MEDS: Acetaminophen 325 MG Tab PO SCH ×2 (07:33→20:30)
[2020-09-25] MEDS: Cyanocobalamin (Vitamin B12) 250 MCG Tab PO SCH (07:33)
[2020-09-25] MEDS: Cholecalciferol (Vitamin D3) 25 MCG Tab PO SCH (07:33)
[2020-09-25] MEDS: Ascorbic Acid 500 MG Tab PO SCH (07:33)
[2020-09-26] MEDS: BACLOFEN 10 MG PO SCH ×3 (08:52→20:22)
[2020-09-26] MEDS: Ascorbic Acid 500 MG Tab PO SCH (08:52)
[2020-09-26] MEDS: Zinc Sulfate 220 MG (50mg elemental Zinc) Cap PO SCH (08:52)
[2020-09-26] MEDS: Cyanocobalamin (Vitamin B12) 250 MCG Tab PO SCH (08:52)
[2020-09-26] MEDS: Lactobacillus Rhamnosus GG (Probiotic) Cap PO SCH ×2 (08:52→20:21)
[2020-09-26] MEDS: OXYBUTYNIN 10 MG PO SCH (08:52)
[2020-09-26] MEDS: Acetaminophen 325 MG Tab PO SCH ×2 (08:53→20:21)
[2020-09-26] MEDS: Cholecalciferol (Vitamin D3) 25 MCG Tab PO SCH (08:53)
[2020-09-26] MEDS: Multivitamins with Iron/Calcium/Folic Acid/Minerals Tab PO SCH (08:53)
[2020-09-27] MEDS: Multivitamins with Iron/Calcium/Folic Acid/Minerals Tab PO SCH (09:07)
[2020-09-27] MEDS: BACLOFEN 10 MG PO SCH ×3 (09:07→20:13)
[2020-09-27] MEDS: OXYBUTYNIN 10 MG PO SCH (09:07)
[2020-09-27] MEDS: Lactobacillus Rhamnosus GG (Probiotic) Cap PO SCH ×2 (09:07→20:12)
[2020-09-27] MEDS: Ascorbic Acid 500 MG Tab PO SCH (09:07)
[2020-09-27] MEDS: Zinc Sulfate 220 MG (50mg elemental Zinc) Cap PO SCH (09:08)
[2020-09-27] MEDS: Cholecalciferol (Vitamin D3) 25 MCG Tab PO SCH (09:08)
[2020-09-27] MEDS: Acetaminophen 325 MG Tab PO SCH ×2 (09:08→20:12)
[2020-09-27] MEDS: Cyanocobalamin (Vitamin B12) 250 MCG Tab PO SCH (09:08)
[2020-09-28] MEDS: OXYBUTYNIN 10 MG PO SCH (08:18)
[2020-09-28] MEDS: BACLOFEN 10 MG PO SCH ×3 (08:18→20:12)
[2020-09-28] MEDS: Multivitamins with Iron/Calcium/Folic Acid/Minerals Tab PO SCH (08:24)
[2020-09-28] MEDS: Cholecalciferol (Vitamin D3) 25 MCG Tab PO SCH (08:24)
[2020-09-28] MEDS: Lactobacillus Rhamnosus GG (Probiotic) Cap PO SCH ×2 (08:25→20:12)
[2020-09-28] MEDS: Cyanocobalamin (Vitamin B12) 250 MCG Tab PO SCH (08:25)
[2020-09-28] MEDS: Ascorbic Acid 500 MG Tab PO SCH (08:25)
[2020-09-28] MEDS: Acetaminophen 325 MG Tab PO SCH ×2 (08:27→20:12)
[2020-09-28] MEDS: Zinc Sulfate 220 MG (50mg elemental Zinc) Cap PO SCH (12:59)
[2020-09-29] MEDS: OXYBUTYNIN 10 MG PO SCH (08:39)
[2020-09-29] MEDS: BACLOFEN 10 MG PO SCH ×3 (08:39→19:52)
[2020-09-29] MEDS: Cyanocobalamin (Vitamin B12) 250 MCG Tab PO SCH (08:40)
[2020-09-29] MEDS: Acetaminophen 325 MG Tab PO SCH ×2 (08:40→19:53)
[2020-09-29] MEDS: Lactobacillus Rhamnosus GG (Probiotic) Cap PO SCH ×2 (08:40→19:53)
[2020-09-29] MEDS: Multivitamins with Iron/Calcium/Folic Acid/Minerals Tab PO SCH (08:40)
[2020-09-29] MEDS: Ascorbic Acid 500 MG Tab PO SCH (08:40)
[2020-09-29] MEDS: Zinc Sulfate 220 MG (50mg elemental Zinc) Cap PO SCH (08:41)
[2020-09-29] MEDS: Cholecalciferol (Vitamin D3) 25 MCG Tab PO SCH (08:41)
[2020-09-30] MEDS: BACLOFEN 10 MG PO SCH ×3 (08:52→20:21)
[2020-09-30] MEDS: Ascorbic Acid 500 MG Tab PO SCH (08:52)
[2020-09-30] MEDS: Lactobacillus Rhamnosus GG (Probiotic) Cap PO SCH ×2 (08:52→20:20)
[2020-09-30] MEDS: Multivitamins with Iron/Calcium/Folic Acid/Minerals Tab PO SCH (08:52)
[2020-09-30] MEDS: Zinc Sulfate 220 MG (50mg elemental Zinc) Cap PO SCH (08:52)
[2020-09-30] MEDS: Cholecalciferol (Vitamin D3) 25 MCG Tab PO SCH (08:52)
[2020-09-30] MEDS: OXYBUTYNIN 10 MG PO SCH (08:52)
[2020-09-30] MEDS: Cyanocobalamin (Vitamin B12) 250 MCG Tab PO SCH (08:52)
[2020-09-30] MEDS: Acetaminophen 325 MG Tab PO SCH ×2 (08:53→20:19)
[2020-10-01] MEDS: Zinc Sulfate 220 MG (50mg elemental Zinc) Cap PO SCH (07:27)
[2020-10-01] MEDS: Lactobacillus Rhamnosus GG (Probiotic) Cap PO SCH ×2 (07:27→20:38)
[2020-10-01] MEDS: Ascorbic Acid 500 MG Tab PO SCH (07:27)
[2020-10-01] MEDS: Cyanocobalamin (Vitamin B12) 250 MCG Tab PO SCH (07:27)
[2020-10-01] MEDS: OXYBUTYNIN 10 MG PO SCH (07:27)
[2020-10-01] MEDS: Multivitamins with Iron/Calcium/Folic Acid/Minerals Tab PO SCH (07:27)
[2020-10-01] MEDS: Cholecalciferol (Vitamin D3) 25 MCG Tab PO SCH (07:27)
[2020-10-01] MEDS: BACLOFEN 10 MG PO SCH ×3 (07:27→20:40)
[2020-10-01] MEDS: Acetaminophen 325 MG Tab PO SCH ×2 (07:28→20:39)
[2020-10-02] MEDS: OXYBUTYNIN 10 MG PO SCH (08:56)
[2020-10-02] MEDS: Acetaminophen 325 MG Tab PO SCH ×2 (08:56→19:35)
[2020-10-02] MEDS: BACLOFEN 10 MG PO SCH ×3 (08:56→19:35)
[2020-10-02] MEDS: Lactobacillus Rhamnosus GG (Probiotic) Cap PO SCH ×2 (08:57→19:35)
[2020-10-02] MEDS: Zinc Sulfate 220 MG (50mg elemental Zinc) Cap PO SCH (08:57)
[2020-10-02] MEDS: Cholecalciferol (Vitamin D3) 25 MCG Tab PO SCH (08:57)
[2020-10-02] MEDS: Ascorbic Acid 500 MG Tab PO SCH (08:57)
[2020-10-02] MEDS: Cyanocobalamin (Vitamin B12) 250 MCG Tab PO SCH (08:57)
[2020-10-02] MEDS: Multivitamins with Iron/Calcium/Folic Acid/Minerals Tab PO SCH (08:57)
[2020-10-03] MEDS: Acetaminophen 325 MG Tab PO SCH ×2 (07:32→19:35)
[2020-10-03] MEDS: BACLOFEN 10 MG PO SCH ×3 (07:32→19:36)
[2020-10-03] MEDS: OXYBUTYNIN 10 MG PO SCH (07:32)
[2020-10-03] MEDS: Zinc Sulfate 220 MG (50mg elemental Zinc) Cap PO SCH (07:33)
[2020-10-03] MEDS: Multivitamins with Iron/Calcium/Folic Acid/Minerals Tab PO SCH (07:33)
[2020-10-03] MEDS: Lactobacillus Rhamnosus GG (Probiotic) Cap PO SCH ×2 (07:33→19:34)
[2020-10-03] MEDS: Cholecalciferol (Vitamin D3) 25 MCG Tab PO SCH (07:33)
[2020-10-03] MEDS: Cyanocobalamin (Vitamin B12) 250 MCG Tab PO SCH (07:33)
[2020-10-03] MEDS: Ascorbic Acid 500 MG Tab PO SCH (07:34)
[2020-10-04] MEDS: BACLOFEN 10 MG PO SCH ×3 (07:55→19:29)
[2020-10-04] MEDS: Zinc Sulfate 220 MG (50mg elemental Zinc) Cap PO SCH (07:56)
[2020-10-04] MEDS: Lactobacillus Rhamnosus GG (Probiotic) Cap PO SCH ×2 (07:56→19:28)
[2020-10-04] MEDS: Acetaminophen 325 MG Tab PO SCH ×2 (07:56→19:28)
[2020-10-04] MEDS: OXYBUTYNIN 10 MG PO SCH (07:56)
[2020-10-04] MEDS: Ascorbic Acid 500 MG Tab PO SCH (07:56)
[2020-10-04] MEDS: Cyanocobalamin (Vitamin B12) 250 MCG Tab PO SCH (07:56)
[2020-10-04] MEDS: Multivitamins with Iron/Calcium/Folic Acid/Minerals Tab PO SCH (07:56)
[2020-10-04] MEDS: Cholecalciferol (Vitamin D3) 25 MCG Tab PO SCH (07:56)
[2020-10-05] MEDS: BACLOFEN 10 MG PO SCH ×3 (07:26→19:34)
[2020-10-05] MEDS: OXYBUTYNIN 10 MG PO SCH (07:26)
[2020-10-05] MEDS: Acetaminophen 325 MG Tab PO SCH ×2 (07:27→19:35)
[2020-10-05] MEDS: Multivitamins with Iron/Calcium/Folic Acid/Minerals Tab PO SCH (07:28)
[2020-10-05] MEDS: Zinc Sulfate 220 MG (50mg elemental Zinc) Cap PO SCH (07:28)
[2020-10-05] MEDS: Cholecalciferol (Vitamin D3) 25 MCG Tab PO SCH (07:28)
[2020-10-05] MEDS: Ascorbic Acid 500 MG Tab PO SCH (07:28)
[2020-10-05] MEDS: Lactobacillus Rhamnosus GG (Probiotic) Cap PO SCH ×2 (07:28→19:35)
[2020-10-05] MEDS: Cyanocobalamin (Vitamin B12) 250 MCG Tab PO SCH (07:28)
[2020-10-06] MEDS: OXYBUTYNIN 10 MG PO SCH ×2 (05:42→07:49)
[2020-10-06] MEDS: BACLOFEN 10 MG PO SCH ×4 (05:42→20:35)
[2020-10-06] MEDS: Acetaminophen 325 MG Tab PO SCH ×3 (05:43→20:34)
[2020-10-06] MEDS: Lactobacillus Rhamnosus GG (Probiotic) Cap PO SCH ×2 (14:34→20:34)
[2020-10-06] MEDS: Cholecalciferol (Vitamin D3) 25 MCG Tab PO SCH (14:34)
[2020-10-06] MEDS: Zinc Sulfate 220 MG (50mg elemental Zinc) Cap PO SCH (14:34)
[2020-10-06] MEDS: Multivitamins with Iron/Calcium/Folic Acid/Minerals Tab PO SCH (14:34)
[2020-10-06] MEDS: Cyanocobalamin (Vitamin B12) 250 MCG Tab PO SCH (14:35)
[2020-10-06] MEDS: Ascorbic Acid 500 MG Tab PO SCH (14:35)
[2020-10-07] MEDS: Lactobacillus Rhamnosus GG (Probiotic) Cap PO SCH ×2 (08:28→20:05)
[2020-10-07] MEDS: BACLOFEN 10 MG PO SCH ×3 (08:30→20:05)
[2020-10-07] MEDS: OXYBUTYNIN 10 MG PO SCH (08:31)
[2020-10-07] MEDS: Multivitamins with Iron/Calcium/Folic Acid/Minerals Tab PO SCH (08:32)
[2020-10-07] MEDS: Acetaminophen 325 MG Tab PO SCH ×2 (08:33→20:05)
[2020-10-07] MEDS: Cyanocobalamin (Vitamin B12) 250 MCG Tab PO SCH (08:34)
[2020-10-07] MEDS: Ascorbic Acid 500 MG Tab PO SCH (08:35)
[2020-10-07] MEDS: Cholecalciferol (Vitamin D3) 25 MCG Tab PO SCH (08:37)
[2020-10-07] MEDS: Zinc Sulfate 220 MG (50mg elemental Zinc) Cap PO SCH (08:38)
[2020-10-08] MEDS: Lactobacillus Rhamnosus GG (Probiotic) Cap PO SCH ×2 (08:29→20:33)
[2020-10-08] MEDS: BACLOFEN 10 MG PO SCH ×3 (08:30→20:33)
[2020-10-08] MEDS: OXYBUTYNIN 10 MG PO SCH (08:31)
[2020-10-08] MEDS: Acetaminophen 325 MG Tab PO SCH ×2 (08:31→20:34)
[2020-10-08] MEDS: Multivitamins with Iron/Calcium/Folic Acid/Minerals Tab PO SCH (08:31)
[2020-10-08] MEDS: Cholecalciferol (Vitamin D3) 25 MCG Tab PO SCH (08:33)
[2020-10-08] MEDS: Cyanocobalamin (Vitamin B12) 250 MCG Tab PO SCH (08:33)
[2020-10-08] MEDS: Ascorbic Acid 500 MG Tab PO SCH (08:33)
[2020-10-08] MEDS: Zinc Sulfate 220 MG (50mg elemental Zinc) Cap PO SCH (08:34)
[2020-10-09] MEDS: Ascorbic Acid 500 MG Tab PO SCH (09:35)
[2020-10-09] MEDS: OXYBUTYNIN 10 MG PO SCH (09:35)
[2020-10-09] MEDS: Cholecalciferol (Vitamin D3) 25 MCG Tab PO SCH (09:35)
[2020-10-09] MEDS: BACLOFEN 10 MG PO SCH ×3 (09:35→20:17)
[2020-10-09] MEDS: Cyanocobalamin (Vitamin B12) 250 MCG Tab PO SCH (09:35)
[2020-10-09] MEDS: Lactobacillus Rhamnosus GG (Probiotic) Cap PO SCH ×2 (09:36→20:17)
[2020-10-09] MEDS: Zinc Sulfate 220 MG (50mg elemental Zinc) Cap PO SCH (09:36)
[2020-10-09] MEDS: Acetaminophen 325 MG Tab PO SCH ×2 (09:36→20:17)
[2020-10-09] MEDS: Multivitamins with Iron/Calcium/Folic Acid/Minerals Tab PO SCH (09:36)
[2020-10-10] MEDS: BACLOFEN 10 MG PO SCH ×3 (09:45→19:47)
[2020-10-10] MEDS: OXYBUTYNIN 10 MG PO SCH (09:45)
[2020-10-10] MEDS: Cyanocobalamin (Vitamin B12) 250 MCG Tab PO SCH (09:45)
[2020-10-10] MEDS: Lactobacillus Rhamnosus GG (Probiotic) Cap PO SCH ×2 (09:45→19:46)
[2020-10-10] MEDS: Zinc Sulfate 220 MG (50mg elemental Zinc) Cap PO SCH (09:46)
[2020-10-10] MEDS: Acetaminophen 325 MG Tab PO SCH ×2 (09:46→19:47)
[2020-10-10] MEDS: Multivitamins with Iron/Calcium/Folic Acid/Minerals Tab PO SCH (09:46)
[2020-10-10] MEDS: Ascorbic Acid 500 MG Tab PO SCH (09:47)
[2020-10-10] MEDS: Cholecalciferol (Vitamin D3) 25 MCG Tab PO SCH (09:47)
[2020-10-11] MEDS: Multivitamins with Iron/Calcium/Folic Acid/Minerals Tab PO SCH (07:43)
[2020-10-11] MEDS: Ascorbic Acid 500 MG Tab PO SCH (07:43)
[2020-10-11] MEDS: Lactobacillus Rhamnosus GG (Probiotic) Cap PO SCH ×2 (07:43→19:53)
[2020-10-11] MEDS: Cholecalciferol (Vitamin D3) 25 MCG Tab PO SCH (07:43)
[2020-10-11] MEDS: OXYBUTYNIN 10 MG PO SCH (07:43)
[2020-10-11] MEDS: BACLOFEN 10 MG PO SCH ×3 (07:43→19:53)
[2020-10-11] MEDS: Acetaminophen 325 MG Tab PO SCH ×2 (07:44→19:54)
[2020-10-11] MEDS: Cyanocobalamin (Vitamin B12) 250 MCG Tab PO SCH (07:44)
[2020-10-11] MEDS: Zinc Sulfate 220 MG (50mg elemental Zinc) Cap PO SCH (07:44)
[2020-10-12] MEDS: OXYBUTYNIN 10 MG PO SCH (08:22)
[2020-10-12] MEDS: BACLOFEN 10 MG PO SCH ×3 (08:22→20:19)
[2020-10-12] MEDS: Cyanocobalamin (Vitamin B12) 250 MCG Tab PO SCH (08:23)
[2020-10-12] MEDS: Lactobacillus Rhamnosus GG (Probiotic) Cap PO SCH ×2 (08:23→20:18)
[2020-10-12] MEDS: Ascorbic Acid 500 MG Tab PO SCH (08:23)
[2020-10-12] MEDS: Cholecalciferol (Vitamin D3) 25 MCG Tab PO SCH (08:23)
[2020-10-12] MEDS: Zinc Sulfate 220 MG (50mg elemental Zinc) Cap PO SCH (08:23)
[2020-10-12] MEDS: Multivitamins with Iron/Calcium/Folic Acid/Minerals Tab PO SCH (08:23)
[2020-10-12] MEDS: Acetaminophen 325 MG Tab PO SCH ×2 (08:24→20:18)
[2020-10-13] MEDS: BACLOFEN 10 MG PO SCH ×3 (08:13→20:00)
[2020-10-13] MEDS: OXYBUTYNIN 10 MG PO SCH (08:13)
[2020-10-13] MEDS: Zinc Sulfate 220 MG (50mg elemental Zinc) Cap PO SCH (08:14)
[2020-10-13] MEDS: Lactobacillus Rhamnosus GG (Probiotic) Cap PO SCH (08:14)
[2020-10-13] MEDS: Multivitamins with Iron/Calcium/Folic Acid/Minerals Tab PO SCH (08:14)
[2020-10-13] MEDS: Ascorbic Acid 500 MG Tab PO SCH (08:14)
[2020-10-13] MEDS: Cholecalciferol (Vitamin D3) 25 MCG Tab PO SCH (08:14)
[2020-10-13] MEDS: Cyanocobalamin (Vitamin B12) 250 MCG Tab PO SCH (08:14)
[2020-10-13] MEDS: Acetaminophen 325 MG Tab PO SCH ×2 (08:14→20:00)
[2020-10-14] MEDS: Cholecalciferol (Vitamin D3) 25 MCG Tab PO SCH (07:39)
[2020-10-14] MEDS: Ascorbic Acid 500 MG Tab PO SCH (07:39)
[2020-10-14] MEDS: Lactobacillus Rhamnosus GG (Probiotic) Cap PO SCH (07:39)
[2020-10-14] MEDS: Multivitamins with Iron/Calcium/Folic Acid/Minerals Tab PO SCH (07:39)
[2020-10-14] MEDS: Zinc Sulfate 220 MG (50mg elemental Zinc) Cap PO SCH (07:39)
[2020-10-14] MEDS: Acetaminophen 325 MG Tab PO SCH ×2 (07:39→20:01)
[2020-10-14] MEDS: Cyanocobalamin (Vitamin B12) 250 MCG Tab PO SCH (07:40)
[2020-10-14] MEDS: BACLOFEN 10 MG PO SCH ×3 (07:40→20:01)
[2020-10-14] MEDS: OXYBUTYNIN 10 MG PO SCH (07:40)
[2020-10-15 06:06] VITALS: BP 126/82; PULSE 75
[2020-10-15] MEDS: OXYBUTYNIN 10 MG PO SCH (07:44)
[2020-10-15] MEDS: BACLOFEN 10 MG PO SCH ×2 (07:45→11:10)
[2020-10-15] MEDS: Acetaminophen 325 MG Tab PO SCH (07:46)
[2020-10-15] MEDS: Cholecalciferol (Vitamin D3) 25 MCG Tab PO SCH (07:47)
[2020-10-15] MEDS: Ascorbic Acid 500 MG Tab PO SCH (07:47)
[2020-10-15] MEDS: Cyanocobalamin (Vitamin B12) 250 MCG Tab PO SCH (07:47)
[2020-10-15] MEDS: Lactobacillus Rhamnosus GG (Probiotic) Cap PO SCH (07:48)
[2020-10-15] MEDS: Multivitamins with Iron/Calcium/Folic Acid/Minerals Tab PO SCH (07:48)
[2020-10-15] MEDS: Zinc Sulfate 220 MG (50mg elemental Zinc) Cap PO SCH (07:48)
== END 2020-10-15 13:27 | disposition home or self-care (01) | DRG 593 ==
LOC: VM.MS 13:59
PROVIDERS: ADMIT Family Medicine; ATTEND Family Medicine
DX: L89.159 Pressure ulcer of sacral region, unspecified stage (principal); M46.28 Osteomyelitis of vertebra, sacral and sacrococcygeal region; N39.0 Urinary tract infection, site not specified; Z68.41 Body mass index [BMI] 40.0-44.9, adult; J32.9 Chronic sinusitis, unspecified; K59.09 Other constipation; N31.9 Neuromuscular dysfunction of bladder, unspecified; G35 Multiple sclerosis; F43.21 Adjustment disorder with depressed mood; I10 Essential (primary) hypertension; Z66 Do not resuscitate; E66.9 Obesity, unspecified; C44.229 Squamous cell carcinoma of skin of left ear and external auricular canal; N32.89 Other specified disorders of bladder; H61.22 Impacted cerumen, left ear; L60.0 Ingrowing nail; Z79.899 Other long term (current) drug therapy; Z88.1 Allergy status to other antibiotic agents; Z91.011 Allergy to milk products; Z91.048 Other nonmedicinal substance allergy status
CPT/HCPCS: 36415; 51702; 51703; 81001; 82565; 84134; 84450; 85025; 85652; 86140; 86480; 97110-GO; 97110-GP; 97162-GP; 97163-GP; 97165-GO; 97530-GP; A9270-GY; J1642; J2543; J2997; J7050

== ENCOUNTER 2020-10-14 08:17 | Inpatient (IN) | payer MEDICARE, MEDICAID ==
[2020-10-15] MEDS ORDERED: Miconazole 2% Top Powder 45 GM Container TOP PRN (13:09)
[2020-10-15] MEDS: Acetaminophen 325 MG Tab PO SCH (20:30)
[2020-10-15] MEDS: BACLOFEN 10 MG PO SCH (20:32)
[2020-10-16] MEDS: Cholecalciferol (Vitamin D3) 25 MCG Tab PO SCH (07:46)
[2020-10-16] MEDS: Lactobacillus Rhamnosus GG (Probiotic) Cap PO SCH (07:46)
[2020-10-16] MEDS: Acetaminophen 325 MG Tab PO SCH ×2 (07:46→20:34)
[2020-10-16] MEDS: Zinc Sulfate 220 MG (50mg elemental Zinc) Cap PO SCH (07:47)
[2020-10-16] MEDS: Cyanocobalamin (Vitamin B12) 250 MCG Tab PO SCH (07:47)
[2020-10-16] MEDS: Multivitamins with Iron/Calcium/Folic Acid/Minerals Tab PO SCH (07:47)
[2020-10-16] MEDS: OXYBUTYNIN 10 MG PO SCH (07:48)
[2020-10-16] MEDS: BACLOFEN 10 MG PO SCH ×3 (07:48→20:34)
[2020-10-16] MEDS: Ascorbic Acid 500 MG Tab PO SCH (07:49)
[2020-10-17] MEDS: OXYBUTYNIN 10 MG PO SCH (07:45)
[2020-10-17] MEDS: BACLOFEN 10 MG PO SCH ×3 (07:46→19:46)
[2020-10-17] MEDS: Acetaminophen 325 MG Tab PO SCH ×2 (07:46→19:47)
[2020-10-17] MEDS: Zinc Sulfate 220 MG (50mg elemental Zinc) Cap PO SCH (07:46)
[2020-10-17] MEDS: Ascorbic Acid 500 MG Tab PO SCH (07:46)
[2020-10-17] MEDS: Lactobacillus Rhamnosus GG (Probiotic) Cap PO SCH (07:46)
[2020-10-17] MEDS: Cholecalciferol (Vitamin D3) 25 MCG Tab PO SCH (07:46)
[2020-10-17] MEDS: Cyanocobalamin (Vitamin B12) 250 MCG Tab PO SCH (07:46)
[2020-10-17] MEDS: Multivitamins with Iron/Calcium/Folic Acid/Minerals Tab PO SCH (07:47)
[2020-10-18] MEDS: OXYBUTYNIN 10 MG PO SCH (08:19)
[2020-10-18] MEDS: BACLOFEN 10 MG PO SCH ×3 (08:19→20:06)
[2020-10-18] MEDS: Cyanocobalamin (Vitamin B12) 250 MCG Tab PO SCH (08:20)
[2020-10-18] MEDS: Lactobacillus Rhamnosus GG (Probiotic) Cap PO SCH (08:20)
[2020-10-18] MEDS: Zinc Sulfate 220 MG (50mg elemental Zinc) Cap PO SCH (08:20)
[2020-10-18] MEDS: Multivitamins with Iron/Calcium/Folic Acid/Minerals Tab PO SCH (08:21)
[2020-10-18] MEDS: Ascorbic Acid 500 MG Tab PO SCH (08:21)
[2020-10-18] MEDS: Cholecalciferol (Vitamin D3) 25 MCG Tab PO SCH (08:21)
[2020-10-18] MEDS: Acetaminophen 325 MG Tab PO SCH ×2 (08:21→20:06)
[2020-10-19] MEDS: Cholecalciferol (Vitamin D3) 25 MCG Tab PO SCH (07:30)
[2020-10-19] MEDS: Ascorbic Acid 500 MG Tab PO SCH (07:30)
[2020-10-19] MEDS: Cyanocobalamin (Vitamin B12) 250 MCG Tab PO SCH (07:30)
[2020-10-19] MEDS: Zinc Sulfate 220 MG (50mg elemental Zinc) Cap PO SCH (07:30)
[2020-10-19] MEDS: Multivitamins with Iron/Calcium/Folic Acid/Minerals Tab PO SCH (07:30)
[2020-10-19] MEDS: Acetaminophen 325 MG Tab PO SCH ×2 (07:30→19:52)
[2020-10-19] MEDS: Lactobacillus Rhamnosus GG (Probiotic) Cap PO SCH (07:30)
[2020-10-19] MEDS: OXYBUTYNIN 10 MG PO SCH (07:31)
[2020-10-19] MEDS: BACLOFEN 10 MG PO SCH ×3 (07:31→19:51)
[2020-10-20] MEDS: Cyanocobalamin (Vitamin B12) 250 MCG Tab PO SCH (08:49)
[2020-10-20] MEDS: Ascorbic Acid 500 MG Tab PO SCH (08:50)
[2020-10-20] MEDS: Zinc Sulfate 220 MG (50mg elemental Zinc) Cap PO SCH (08:50)
[2020-10-20] MEDS: Acetaminophen 325 MG Tab PO SCH ×2 (08:50→21:21)
[2020-10-20] MEDS: Cholecalciferol (Vitamin D3) 25 MCG Tab PO SCH (08:50)
[2020-10-20] MEDS: Lactobacillus Rhamnosus GG (Probiotic) Cap PO SCH (08:50)
[2020-10-20] MEDS: Multivitamins with Iron/Calcium/Folic Acid/Minerals Tab PO SCH (08:50)
[2020-10-20] MEDS: BACLOFEN 10 MG PO SCH ×3 (08:51→21:20)
[2020-10-20] MEDS: OXYBUTYNIN 10 MG PO SCH (08:51)
[2020-10-21] MEDS: Acetaminophen 325 MG Tab PO SCH ×2 (08:57→19:48)
[2020-10-21] MEDS: Cholecalciferol (Vitamin D3) 25 MCG Tab PO SCH (08:57)
[2020-10-21] MEDS: Lactobacillus Rhamnosus GG (Probiotic) Cap PO SCH (08:57)
[2020-10-21] MEDS: Zinc Sulfate 220 MG (50mg elemental Zinc) Cap PO SCH (08:57)
[2020-10-21] MEDS: Multivitamins with Iron/Calcium/Folic Acid/Minerals Tab PO SCH (08:57)
[2020-10-21] MEDS: Cyanocobalamin (Vitamin B12) 250 MCG Tab PO SCH (08:57)
[2020-10-21] MEDS: BACLOFEN 10 MG PO SCH ×3 (08:58→19:48)
[2020-10-21] MEDS: Ascorbic Acid 500 MG Tab PO SCH (08:58)
[2020-10-21] MEDS: OXYBUTYNIN 10 MG PO SCH (08:58)
[2020-10-22] MEDS: BACLOFEN 10 MG PO SCH ×3 (08:34→19:50)
[2020-10-22] MEDS: OXYBUTYNIN 10 MG PO SCH (08:34)
[2020-10-22] MEDS: Acetaminophen 325 MG Tab PO SCH ×2 (08:35→19:50)
[2020-10-22] MEDS: Multivitamins with Iron/Calcium/Folic Acid/Minerals Tab PO SCH (08:35)
[2020-10-22] MEDS: Ascorbic Acid 500 MG Tab PO SCH (08:35)
[2020-10-22] MEDS: Cholecalciferol (Vitamin D3) 25 MCG Tab PO SCH (08:35)
[2020-10-22] MEDS: Zinc Sulfate 220 MG (50mg elemental Zinc) Cap PO SCH (08:35)
[2020-10-22] MEDS: Lactobacillus Rhamnosus GG (Probiotic) Cap PO SCH (08:35)
[2020-10-22] MEDS: Cyanocobalamin (Vitamin B12) 250 MCG Tab PO SCH (08:36)
[2020-10-23] MEDS: Acetaminophen 325 MG Tab PO SCH ×2 (08:03→19:49)
[2020-10-23] MEDS: OXYBUTYNIN 10 MG PO SCH (08:03)
[2020-10-23] MEDS: BACLOFEN 10 MG PO SCH ×3 (08:03→19:49)
[2020-10-23] MEDS: Cholecalciferol (Vitamin D3) 25 MCG Tab PO SCH (08:04)
[2020-10-23] MEDS: Multivitamins with Iron/Calcium/Folic Acid/Minerals Tab PO SCH (08:04)
[2020-10-23] MEDS: Ascorbic Acid 500 MG Tab PO SCH (08:04)
[2020-10-23] MEDS: Cyanocobalamin (Vitamin B12) 250 MCG Tab PO SCH (08:04)
[2020-10-23] MEDS: Zinc Sulfate 220 MG (50mg elemental Zinc) Cap PO SCH (08:04)
[2020-10-23] MEDS: Lactobacillus Rhamnosus GG (Probiotic) Cap PO SCH (08:04)
[2020-10-24] MEDS: OXYBUTYNIN 10 MG PO SCH (07:42)
[2020-10-24] MEDS: BACLOFEN 10 MG PO SCH ×3 (07:42→19:31)
[2020-10-24] MEDS: Acetaminophen 325 MG Tab PO SCH ×2 (07:42→19:32)
[2020-10-24] MEDS: Zinc Sulfate 220 MG (50mg elemental Zinc) Cap PO SCH (07:43)
[2020-10-24] MEDS: Ascorbic Acid 500 MG Tab PO SCH (07:43)
[2020-10-24] MEDS: Lactobacillus Rhamnosus GG (Probiotic) Cap PO SCH (07:43)
[2020-10-24] MEDS: Cholecalciferol (Vitamin D3) 25 MCG Tab PO SCH (07:43)
[2020-10-24] MEDS: Cyanocobalamin (Vitamin B12) 250 MCG Tab PO SCH (07:43)
[2020-10-24] MEDS: Multivitamins with Iron/Calcium/Folic Acid/Minerals Tab PO SCH (07:43)
[2020-10-25] MEDS: BACLOFEN 10 MG PO SCH ×3 (09:13→19:34)
[2020-10-25] MEDS: OXYBUTYNIN 10 MG PO SCH (09:13)
[2020-10-25] MEDS: Ascorbic Acid 500 MG Tab PO SCH (09:14)
[2020-10-25] MEDS: Zinc Sulfate 220 MG (50mg elemental Zinc) Cap PO SCH (09:14)
[2020-10-25] MEDS: Cholecalciferol (Vitamin D3) 25 MCG Tab PO SCH (09:14)
[2020-10-25] MEDS: Lactobacillus Rhamnosus GG (Probiotic) Cap PO SCH (09:14)
[2020-10-25] MEDS: Cyanocobalamin (Vitamin B12) 250 MCG Tab PO SCH (09:14)
[2020-10-25] MEDS: Multivitamins with Iron/Calcium/Folic Acid/Minerals Tab PO SCH (09:14)
[2020-10-25] MEDS: Acetaminophen 325 MG Tab PO SCH ×2 (09:15→19:34)
[2020-10-26] MEDS: OXYBUTYNIN 10 MG PO SCH (07:52)
[2020-10-26] MEDS: BACLOFEN 10 MG PO SCH ×3 (07:52→19:39)
[2020-10-26] MEDS: Acetaminophen 325 MG Tab PO SCH ×2 (07:53→19:40)
[2020-10-26] MEDS: Cyanocobalamin (Vitamin B12) 250 MCG Tab PO SCH (07:53)
[2020-10-26] MEDS: Ascorbic Acid 500 MG Tab PO SCH (07:53)
[2020-10-26] MEDS: Zinc Sulfate 220 MG (50mg elemental Zinc) Cap PO SCH (07:53)
[2020-10-26] MEDS: Cholecalciferol (Vitamin D3) 25 MCG Tab PO SCH (07:53)
[2020-10-26] MEDS: Multivitamins with Iron/Calcium/Folic Acid/Minerals Tab PO SCH (07:53)
[2020-10-26] MEDS: Lactobacillus Rhamnosus GG (Probiotic) Cap PO SCH (07:54)
[2020-10-27] MEDS: BACLOFEN 10 MG PO SCH ×3 (09:55→19:56)
[2020-10-27] MEDS: OXYBUTYNIN 10 MG PO SCH (09:55)
[2020-10-27] MEDS: Acetaminophen 325 MG Tab PO SCH ×2 (09:55→19:55)
[2020-10-27] MEDS: Cyanocobalamin (Vitamin B12) 250 MCG Tab PO SCH (09:56)
[2020-10-27] MEDS: Cholecalciferol (Vitamin D3) 25 MCG Tab PO SCH (09:56)
[2020-10-27] MEDS: Ascorbic Acid 500 MG Tab PO SCH (09:56)
[2020-10-27] MEDS: Zinc Sulfate 220 MG (50mg elemental Zinc) Cap PO SCH (09:56)
[2020-10-27] MEDS: Multivitamins with Iron/Calcium/Folic Acid/Minerals Tab PO SCH (09:56)
[2020-10-27] MEDS: Lactobacillus Rhamnosus GG (Probiotic) Cap PO SCH (09:56)
[2020-10-28] MEDS: BACLOFEN 10 MG PO SCH ×3 (07:51→20:53)
[2020-10-28] MEDS: OXYBUTYNIN 10 MG PO SCH (07:51)
[2020-10-28] MEDS: Lactobacillus Rhamnosus GG (Probiotic) Cap PO SCH (07:52)
[2020-10-28] MEDS: Acetaminophen 325 MG Tab PO SCH ×2 (07:52→20:52)
[2020-10-28] MEDS: Cyanocobalamin (Vitamin B12) 250 MCG Tab PO SCH (07:52)
[2020-10-28] MEDS: Cholecalciferol (Vitamin D3) 25 MCG Tab PO SCH (07:52)
[2020-10-28] MEDS: Multivitamins with Iron/Calcium/Folic Acid/Minerals Tab PO SCH (07:52)
[2020-10-28] MEDS: Zinc Sulfate 220 MG (50mg elemental Zinc) Cap PO SCH (07:52)
[2020-10-28] MEDS: Ascorbic Acid 500 MG Tab PO SCH (07:54)
[2020-10-29] MEDS: BACLOFEN 10 MG PO SCH ×3 (07:37→19:41)
[2020-10-29] MEDS: OXYBUTYNIN 10 MG PO SCH (07:37)
[2020-10-29] MEDS: Cholecalciferol (Vitamin D3) 25 MCG Tab PO SCH (07:38)
[2020-10-29] MEDS: Lactobacillus Rhamnosus GG (Probiotic) Cap PO SCH (07:38)
[2020-10-29] MEDS: Multivitamins with Iron/Calcium/Folic Acid/Minerals Tab PO SCH (07:38)
[2020-10-29] MEDS: Cyanocobalamin (Vitamin B12) 250 MCG Tab PO SCH (07:38)
[2020-10-29] MEDS: Acetaminophen 325 MG Tab PO SCH ×2 (07:38→19:39)
[2020-10-29] MEDS: Zinc Sulfate 220 MG (50mg elemental Zinc) Cap PO SCH (07:38)
[2020-10-29] MEDS: Ascorbic Acid 500 MG Tab PO SCH (07:38)
[2020-10-30] MEDS: Acetaminophen 325 MG Tab PO SCH ×2 (08:30→19:34)
[2020-10-30] MEDS: BACLOFEN 10 MG PO SCH ×3 (08:30→19:35)
[2020-10-30] MEDS: Multivitamins with Iron/Calcium/Folic Acid/Minerals Tab PO SCH (08:30)
[2020-10-30] MEDS: Cholecalciferol (Vitamin D3) 25 MCG Tab PO SCH (08:30)
[2020-10-30] MEDS: OXYBUTYNIN 10 MG PO SCH (08:30)
[2020-10-30] MEDS: Lactobacillus Rhamnosus GG (Probiotic) Cap PO SCH (08:30)
[2020-10-30] MEDS: Zinc Sulfate 220 MG (50mg elemental Zinc) Cap PO SCH (08:30)
[2020-10-30] MEDS: Cyanocobalamin (Vitamin B12) 250 MCG Tab PO SCH (08:30)
[2020-10-30] MEDS: Ascorbic Acid 500 MG Tab PO SCH (08:30)
[2020-10-31] MEDS: Multivitamins with Iron/Calcium/Folic Acid/Minerals Tab PO SCH (08:31)
[2020-10-31] MEDS: BACLOFEN 10 MG PO SCH ×3 (08:31→20:33)
[2020-10-31] MEDS: Cyanocobalamin (Vitamin B12) 250 MCG Tab PO SCH (08:31)
[2020-10-31] MEDS: OXYBUTYNIN 10 MG PO SCH (08:31)
[2020-10-31] MEDS: Acetaminophen 325 MG Tab PO SCH ×2 (08:31→20:31)
[2020-10-31] MEDS: Zinc Sulfate 220 MG (50mg elemental Zinc) Cap PO SCH (08:31)
[2020-10-31] MEDS: Ascorbic Acid 500 MG Tab PO SCH (08:32)
[2020-10-31] MEDS: Cholecalciferol (Vitamin D3) 25 MCG Tab PO SCH (08:32)
[2020-10-31] MEDS: Lactobacillus Rhamnosus GG (Probiotic) Cap PO SCH (08:32)
[2020-11-01] MEDS: BACLOFEN 10 MG PO SCH ×3 (08:34→19:59)
[2020-11-01] MEDS: OXYBUTYNIN 10 MG PO SCH (08:34)
[2020-11-01] MEDS: Lactobacillus Rhamnosus GG (Probiotic) Cap PO SCH (08:38)
[2020-11-01] MEDS: Ascorbic Acid 500 MG Tab PO SCH (08:38)
[2020-11-01] MEDS: Zinc Sulfate 220 MG (50mg elemental Zinc) Cap PO SCH (08:38)
[2020-11-01] MEDS: Acetaminophen 325 MG Tab PO SCH ×2 (08:38→19:58)
[2020-11-01] MEDS: Multivitamins with Iron/Calcium/Folic Acid/Minerals Tab PO SCH (08:38)
[2020-11-01] MEDS: Cholecalciferol (Vitamin D3) 25 MCG Tab PO SCH (08:38)
[2020-11-01] MEDS: Cyanocobalamin (Vitamin B12) 250 MCG Tab PO SCH (08:38)
[2020-11-02] MEDS: Multivitamins with Iron/Calcium/Folic Acid/Minerals Tab PO SCH (07:39)
[2020-11-02] MEDS: Acetaminophen 325 MG Tab PO SCH ×2 (07:40→20:34)
[2020-11-02] MEDS: Cholecalciferol (Vitamin D3) 25 MCG Tab PO SCH (07:40)
[2020-11-02] MEDS: Cyanocobalamin (Vitamin B12) 250 MCG Tab PO SCH (07:40)
[2020-11-02] MEDS: Zinc Sulfate 220 MG (50mg elemental Zinc) Cap PO SCH (07:41)
[2020-11-02] MEDS: Lactobacillus Rhamnosus GG (Probiotic) Cap PO SCH (07:41)
[2020-11-02] MEDS: Ascorbic Acid 500 MG Tab PO SCH (07:41)
[2020-11-02] MEDS: OXYBUTYNIN 10 MG PO SCH (07:42)
[2020-11-02] MEDS: BACLOFEN 10 MG PO SCH ×3 (07:42→20:36)
[2020-11-03] MEDS: OXYBUTYNIN 10 MG PO SCH (08:25)
[2020-11-03] MEDS: Cholecalciferol (Vitamin D3) 25 MCG Tab PO SCH (08:25)
[2020-11-03] MEDS: Acetaminophen 325 MG Tab PO SCH ×2 (08:25→19:48)
[2020-11-03] MEDS: BACLOFEN 10 MG PO SCH ×3 (08:25→19:49)
[2020-11-03] MEDS: Multivitamins with Iron/Calcium/Folic Acid/Minerals Tab PO SCH (08:26)
[2020-11-03] MEDS: Cyanocobalamin (Vitamin B12) 250 MCG Tab PO SCH (08:26)
[2020-11-03] MEDS: Zinc Sulfate 220 MG (50mg elemental Zinc) Cap PO SCH (08:26)
[2020-11-03] MEDS: Ascorbic Acid 500 MG Tab PO SCH (08:26)
[2020-11-03] MEDS: Lactobacillus Rhamnosus GG (Probiotic) Cap PO SCH (08:26)
[2020-11-04] MEDS: Cholecalciferol (Vitamin D3) 25 MCG Tab PO SCH (07:36)
[2020-11-04] MEDS: Multivitamins with Iron/Calcium/Folic Acid/Minerals Tab PO SCH (07:37)
[2020-11-04] MEDS: Acetaminophen 325 MG Tab PO SCH ×2 (07:37→20:28)
[2020-11-04] MEDS: Cyanocobalamin (Vitamin B12) 250 MCG Tab PO SCH (07:37)
[2020-11-04] MEDS: BACLOFEN 10 MG PO SCH ×3 (07:37→20:31)
[2020-11-04] MEDS: Lactobacillus Rhamnosus GG (Probiotic) Cap PO SCH (07:37)
[2020-11-04] MEDS: OXYBUTYNIN 10 MG PO SCH (07:38)
[2020-11-04] MEDS: Ascorbic Acid 500 MG Tab PO SCH (07:39)
[2020-11-04] MEDS: Zinc Sulfate 220 MG (50mg elemental Zinc) Cap PO SCH (07:39)
[2020-11-05] MEDS: OXYBUTYNIN 10 MG PO SCH (07:27)
[2020-11-05] MEDS: BACLOFEN 10 MG PO SCH ×3 (07:27→19:52)
[2020-11-05] MEDS: Lactobacillus Rhamnosus GG (Probiotic) Cap PO SCH (07:28)
[2020-11-05] MEDS: Acetaminophen 325 MG Tab PO SCH ×2 (07:28→19:51)
[2020-11-05] MEDS: Multivitamins with Iron/Calcium/Folic Acid/Minerals Tab PO SCH (07:28)
[2020-11-05] MEDS: Ascorbic Acid 500 MG Tab PO SCH (07:28)
[2020-11-05] MEDS: Zinc Sulfate 220 MG (50mg elemental Zinc) Cap PO SCH (07:28)
[2020-11-05] MEDS: Cyanocobalamin (Vitamin B12) 250 MCG Tab PO SCH (07:28)
[2020-11-05] MEDS: Cholecalciferol (Vitamin D3) 25 MCG Tab PO SCH (07:28)
[2020-11-06] MEDS: Multivitamins with Iron/Calcium/Folic Acid/Minerals Tab PO SCH (07:31)
[2020-11-06] MEDS: OXYBUTYNIN 10 MG PO SCH (07:31)
[2020-11-06] MEDS: BACLOFEN 10 MG PO SCH ×3 (07:31→19:40)
[2020-11-06] MEDS: Lactobacillus Rhamnosus GG (Probiotic) Cap PO SCH (07:31)
[2020-11-06] MEDS: Cyanocobalamin (Vitamin B12) 250 MCG Tab PO SCH (07:31)
[2020-11-06] MEDS: Cholecalciferol (Vitamin D3) 25 MCG Tab PO SCH (07:31)
[2020-11-06] MEDS: Zinc Sulfate 220 MG (50mg elemental Zinc) Cap PO SCH (07:31)
[2020-11-06] MEDS: Acetaminophen 325 MG Tab PO SCH ×2 (07:32→19:39)
[2020-11-06] MEDS: Ascorbic Acid 500 MG Tab PO SCH (07:32)
[2020-11-07] MEDS: Zinc Sulfate 220 MG (50mg elemental Zinc) Cap PO SCH (08:31)
[2020-11-07] MEDS: BACLOFEN 10 MG PO SCH ×3 (08:31→20:00)
[2020-11-07] MEDS: Acetaminophen 325 MG Tab PO SCH ×2 (08:31→19:58)
[2020-11-07] MEDS: OXYBUTYNIN 10 MG PO SCH (08:31)
[2020-11-07] MEDS: Ascorbic Acid 500 MG Tab PO SCH (08:32)
[2020-11-07] MEDS: Lactobacillus Rhamnosus GG (Probiotic) Cap PO SCH (08:32)
[2020-11-07] MEDS: Multivitamins with Iron/Calcium/Folic Acid/Minerals Tab PO SCH (08:32)
[2020-11-07] MEDS: Cyanocobalamin (Vitamin B12) 250 MCG Tab PO SCH (08:32)
[2020-11-07] MEDS: Cholecalciferol (Vitamin D3) 25 MCG Tab PO SCH (08:32)
[2020-11-08] MEDS: BACLOFEN 10 MG PO SCH ×3 (07:52→19:42)
[2020-11-08] MEDS: OXYBUTYNIN 10 MG PO SCH (07:52)
[2020-11-08] MEDS: Multivitamins with Iron/Calcium/Folic Acid/Minerals Tab PO SCH (07:53)
[2020-11-08] MEDS: Zinc Sulfate 220 MG (50mg elemental Zinc) Cap PO SCH (07:53)
[2020-11-08] MEDS: Cholecalciferol (Vitamin D3) 25 MCG Tab PO SCH (07:53)
[2020-11-08] MEDS: Ascorbic Acid 500 MG Tab PO SCH (07:53)
[2020-11-08] MEDS: Cyanocobalamin (Vitamin B12) 250 MCG Tab PO SCH (07:53)
[2020-11-08] MEDS: Acetaminophen 325 MG Tab PO SCH ×2 (07:54→19:42)
[2020-11-08] MEDS: Lactobacillus Rhamnosus GG (Probiotic) Cap PO SCH (07:54)
[2020-11-09] MEDS: BACLOFEN 10 MG PO SCH ×3 (07:20→20:03)
[2020-11-09] MEDS: OXYBUTYNIN 10 MG PO SCH (07:20)
[2020-11-09] MEDS: Acetaminophen 325 MG Tab PO SCH ×2 (07:21→20:04)
[2020-11-09] MEDS: Zinc Sulfate 220 MG (50mg elemental Zinc) Cap PO SCH (07:21)
[2020-11-09] MEDS: Cholecalciferol (Vitamin D3) 25 MCG Tab PO SCH (07:21)
[2020-11-09] MEDS: Cyanocobalamin (Vitamin B12) 250 MCG Tab PO SCH (07:22)
[2020-11-09] MEDS: Ascorbic Acid 500 MG Tab PO SCH (07:22)
[2020-11-09] MEDS: Multivitamins with Iron/Calcium/Folic Acid/Minerals Tab PO SCH (07:22)
[2020-11-09] MEDS: Lactobacillus Rhamnosus GG (Probiotic) Cap PO SCH (07:22)
[2020-11-10] MEDS: Acetaminophen 325 MG Tab PO SCH ×2 (07:52→20:06)
[2020-11-10] MEDS: Cholecalciferol (Vitamin D3) 25 MCG Tab PO SCH (07:52)
[2020-11-10] MEDS: Lactobacillus Rhamnosus GG (Probiotic) Cap PO SCH (07:52)
[2020-11-10] MEDS: Multivitamins with Iron/Calcium/Folic Acid/Minerals Tab PO SCH (07:52)
[2020-11-10] MEDS: Zinc Sulfate 220 MG (50mg elemental Zinc) Cap PO SCH (07:52)
[2020-11-10] MEDS: Ascorbic Acid 500 MG Tab PO SCH (07:52)
[2020-11-10] MEDS: Cyanocobalamin (Vitamin B12) 250 MCG Tab PO SCH (07:52)
[2020-11-10] MEDS: OXYBUTYNIN 10 MG PO SCH (07:54)
[2020-11-10] MEDS: BACLOFEN 10 MG PO SCH ×3 (07:54→20:08)
[2020-11-11] MEDS: BACLOFEN 10 MG PO SCH ×3 (07:11→19:49)
[2020-11-11] MEDS: OXYBUTYNIN 10 MG PO SCH (07:11)
[2020-11-11] MEDS: Ascorbic Acid 500 MG Tab PO SCH (07:12)
[2020-11-11] MEDS: Multivitamins with Iron/Calcium/Folic Acid/Minerals Tab PO SCH (07:12)
[2020-11-11] MEDS: Lactobacillus Rhamnosus GG (Probiotic) Cap PO SCH (07:12)
[2020-11-11] MEDS: Cyanocobalamin (Vitamin B12) 250 MCG Tab PO SCH (07:12)
[2020-11-11] MEDS: Acetaminophen 325 MG Tab PO SCH ×2 (07:12→19:48)
[2020-11-11] MEDS: Zinc Sulfate 220 MG (50mg elemental Zinc) Cap PO SCH (07:12)
[2020-11-11] MEDS: Cholecalciferol (Vitamin D3) 25 MCG Tab PO SCH (07:12)
[2020-11-12] MEDS: BACLOFEN 10 MG PO SCH ×3 (07:24→20:14)
[2020-11-12] MEDS: OXYBUTYNIN 10 MG PO SCH (07:25)
[2020-11-12] MEDS: Zinc Sulfate 220 MG (50mg elemental Zinc) Cap PO SCH (07:25)
[2020-11-12] MEDS: Multivitamins with Iron/Calcium/Folic Acid/Minerals Tab PO SCH (07:25)
[2020-11-12] MEDS: Ascorbic Acid 500 MG Tab PO SCH (07:25)
[2020-11-12] MEDS: Cyanocobalamin (Vitamin B12) 250 MCG Tab PO SCH (07:25)
[2020-11-12] MEDS: Acetaminophen 325 MG Tab PO SCH ×2 (07:25→20:14)
[2020-11-12] MEDS: Lactobacillus Rhamnosus GG (Probiotic) Cap PO SCH (07:25)
[2020-11-12] MEDS: Cholecalciferol (Vitamin D3) 25 MCG Tab PO SCH (07:25)
[2020-11-13] MEDS: BACLOFEN 10 MG PO SCH ×3 (09:27→20:22)
[2020-11-13] MEDS: Cholecalciferol (Vitamin D3) 25 MCG Tab PO SCH (09:27)
[2020-11-13] MEDS: Lactobacillus Rhamnosus GG (Probiotic) Cap PO SCH (09:27)
[2020-11-13] MEDS: Zinc Sulfate 220 MG (50mg elemental Zinc) Cap PO SCH (09:27)
[2020-11-13] MEDS: Multivitamins with Iron/Calcium/Folic Acid/Minerals Tab PO SCH (09:27)
[2020-11-13] MEDS: OXYBUTYNIN 10 MG PO SCH (09:27)
[2020-11-13] MEDS: Cyanocobalamin (Vitamin B12) 250 MCG Tab PO SCH (09:28)
[2020-11-13] MEDS: Ascorbic Acid 500 MG Tab PO SCH (09:28)
[2020-11-13] MEDS: Acetaminophen 325 MG Tab PO SCH ×2 (09:28→20:23)
[2020-11-14] MEDS: Multivitamins with Iron/Calcium/Folic Acid/Minerals Tab PO SCH (08:04)
[2020-11-14] MEDS: Cyanocobalamin (Vitamin B12) 250 MCG Tab PO SCH (08:04)
[2020-11-14] MEDS: Ascorbic Acid 500 MG Tab PO SCH (08:05)
[2020-11-14] MEDS: Acetaminophen 325 MG Tab PO SCH ×2 (08:05→19:44)
[2020-11-14] MEDS: Zinc Sulfate 220 MG (50mg elemental Zinc) Cap PO SCH (08:05)
[2020-11-14] MEDS: Lactobacillus Rhamnosus GG (Probiotic) Cap PO SCH (08:07)
[2020-11-14] MEDS: Cholecalciferol (Vitamin D3) 25 MCG Tab PO SCH (08:07)
[2020-11-14] MEDS: OXYBUTYNIN 10 MG PO SCH (08:08)
[2020-11-14] MEDS: BACLOFEN 10 MG PO SCH ×3 (08:09→19:44)
[2020-11-15] MEDS: OXYBUTYNIN 10 MG PO SCH (07:35)
[2020-11-15] MEDS: BACLOFEN 10 MG PO SCH ×3 (07:38→20:33)
[2020-11-15] MEDS: Multivitamins with Iron/Calcium/Folic Acid/Minerals Tab PO SCH (07:42)
[2020-11-15] MEDS: Cyanocobalamin (Vitamin B12) 250 MCG Tab PO SCH (07:43)
[2020-11-15] MEDS: Cholecalciferol (Vitamin D3) 25 MCG Tab PO SCH (07:43)
[2020-11-15] MEDS: Lactobacillus Rhamnosus GG (Probiotic) Cap PO SCH (07:44)
[2020-11-15] MEDS: Zinc Sulfate 220 MG (50mg elemental Zinc) Cap PO SCH (07:44)
[2020-11-15] MEDS: Acetaminophen 325 MG Tab PO SCH ×2 (07:45→20:32)
[2020-11-15] MEDS: Ascorbic Acid 500 MG Tab PO SCH (07:45)
[2020-11-16] MEDS: Acetaminophen 325 MG Tab PO SCH ×2 (07:34→20:32)
[2020-11-16] MEDS: Ascorbic Acid 500 MG Tab PO SCH (07:35)
[2020-11-16] MEDS: OXYBUTYNIN 10 MG PO SCH (07:35)
[2020-11-16] MEDS: BACLOFEN 10 MG PO SCH ×3 (07:35→20:32)
[2020-11-16] MEDS: Zinc Sulfate 220 MG (50mg elemental Zinc) Cap PO SCH (07:35)
[2020-11-16] MEDS: Cholecalciferol (Vitamin D3) 25 MCG Tab PO SCH (07:35)
[2020-11-16] MEDS: Multivitamins with Iron/Calcium/Folic Acid/Minerals Tab PO SCH (07:35)
[2020-11-16] MEDS: Lactobacillus Rhamnosus GG (Probiotic) Cap PO SCH (07:35)
[2020-11-16] MEDS: Cyanocobalamin (Vitamin B12) 250 MCG Tab PO SCH (07:38)
[2020-11-17] MEDS: OXYBUTYNIN 10 MG PO SCH (08:16)
[2020-11-17] MEDS: BACLOFEN 10 MG PO SCH ×3 (08:16→19:41)
[2020-11-17] MEDS: Cholecalciferol (Vitamin D3) 25 MCG Tab PO SCH (08:17)
[2020-11-17] MEDS: Acetaminophen 325 MG Tab PO SCH ×2 (08:18→19:41)
[2020-11-17] MEDS: Lactobacillus Rhamnosus GG (Probiotic) Cap PO SCH (08:18)
[2020-11-17] MEDS: Ascorbic Acid 500 MG Tab PO SCH (08:18)
[2020-11-17] MEDS: Cyanocobalamin (Vitamin B12) 250 MCG Tab PO SCH (08:18)
[2020-11-17] MEDS: Multivitamins with Iron/Calcium/Folic Acid/Minerals Tab PO SCH (08:19)
[2020-11-17] MEDS: Zinc Sulfate 220 MG (50mg elemental Zinc) Cap PO SCH (08:19)
[2020-11-18] MEDS: BACLOFEN 10 MG PO SCH ×3 (07:38→19:35)
[2020-11-18] MEDS: OXYBUTYNIN 10 MG PO SCH (07:38)
[2020-11-18] MEDS: Cholecalciferol (Vitamin D3) 25 MCG Tab PO SCH (07:40)
[2020-11-18] MEDS: Acetaminophen 325 MG Tab PO SCH ×2 (07:40→19:35)
[2020-11-18] MEDS: Ascorbic Acid 500 MG Tab PO SCH (07:41)
[2020-11-18] MEDS: Cyanocobalamin (Vitamin B12) 250 MCG Tab PO SCH (07:41)
[2020-11-18] MEDS: Lactobacillus Rhamnosus GG (Probiotic) Cap PO SCH (07:41)
[2020-11-18] MEDS: Multivitamins with Iron/Calcium/Folic Acid/Minerals Tab PO SCH (07:41)
[2020-11-18] MEDS: Zinc Sulfate 220 MG (50mg elemental Zinc) Cap PO SCH (07:42)
[2020-11-19] MEDS: OXYBUTYNIN 10 MG PO SCH (07:27)
[2020-11-19] MEDS: BACLOFEN 10 MG PO SCH ×3 (07:27→19:15)
[2020-11-19] MEDS: Cholecalciferol (Vitamin D3) 25 MCG Tab PO SCH (07:28)
[2020-11-19] MEDS: Acetaminophen 325 MG Tab PO SCH ×2 (07:28→19:15)
[2020-11-19] MEDS: Multivitamins with Iron/Calcium/Folic Acid/Minerals Tab PO SCH (07:28)
[2020-11-19] MEDS: Zinc Sulfate 220 MG (50mg elemental Zinc) Cap PO SCH (07:28)
[2020-11-19] MEDS: Lactobacillus Rhamnosus GG (Probiotic) Cap PO SCH (07:28)
[2020-11-19] MEDS: Cyanocobalamin (Vitamin B12) 250 MCG Tab PO SCH (07:28)
[2020-11-19] MEDS: Ascorbic Acid 500 MG Tab PO SCH (07:28)
[2020-11-20] MEDS: Acetaminophen 325 MG Tab PO SCH ×2 (07:37→19:57)
[2020-11-20] MEDS: BACLOFEN 10 MG PO SCH ×4 (07:37→19:57)
[2020-11-20] MEDS: Zinc Sulfate 220 MG (50mg elemental Zinc) Cap PO SCH (07:38)
[2020-11-20] MEDS: OXYBUTYNIN 10 MG PO SCH (07:38)
[2020-11-20] MEDS: Ascorbic Acid 500 MG Tab PO SCH (07:38)
[2020-11-20] MEDS: Lactobacillus Rhamnosus GG (Probiotic) Cap PO SCH (07:38)
[2020-11-20] MEDS: Multivitamins with Iron/Calcium/Folic Acid/Minerals Tab PO SCH (07:38)
[2020-11-20] MEDS: Cholecalciferol (Vitamin D3) 25 MCG Tab PO SCH (07:38)
[2020-11-20] MEDS: Cyanocobalamin (Vitamin B12) 250 MCG Tab PO SCH (07:38)
[2020-11-21] MEDS: BACLOFEN 10 MG PO SCH ×3 (07:25→19:57)
[2020-11-21] MEDS: OXYBUTYNIN 10 MG PO SCH (07:25)
[2020-11-21] MEDS: Multivitamins with Iron/Calcium/Folic Acid/Minerals Tab PO SCH (07:26)
[2020-11-21] MEDS: Zinc Sulfate 220 MG (50mg elemental Zinc) Cap PO SCH (07:26)
[2020-11-21] MEDS: Lactobacillus Rhamnosus GG (Probiotic) Cap PO SCH (07:26)
[2020-11-21] MEDS: Cholecalciferol (Vitamin D3) 25 MCG Tab PO SCH (07:26)
[2020-11-21] MEDS: Ascorbic Acid 500 MG Tab PO SCH (07:26)
[2020-11-21] MEDS: Cyanocobalamin (Vitamin B12) 250 MCG Tab PO SCH (07:26)
[2020-11-21] MEDS: Acetaminophen 325 MG Tab PO SCH ×2 (07:26→19:57)
[2020-11-22] MEDS: Multivitamins with Iron/Calcium/Folic Acid/Minerals Tab PO SCH (07:23)
[2020-11-22] MEDS: Acetaminophen 325 MG Tab PO SCH ×2 (07:23→19:27)
[2020-11-22] MEDS: BACLOFEN 10 MG PO SCH ×3 (07:23→19:26)
[2020-11-22] MEDS: OXYBUTYNIN 10 MG PO SCH (07:23)
[2020-11-22] MEDS: Cholecalciferol (Vitamin D3) 25 MCG Tab PO SCH (07:24)
[2020-11-22] MEDS: Lactobacillus Rhamnosus GG (Probiotic) Cap PO SCH (07:24)
[2020-11-22] MEDS: Cyanocobalamin (Vitamin B12) 250 MCG Tab PO SCH (07:24)
[2020-11-22] MEDS: Zinc Sulfate 220 MG (50mg elemental Zinc) Cap PO SCH (07:24)
[2020-11-22] MEDS: Ascorbic Acid 500 MG Tab PO SCH (07:24)
[2020-11-23] MEDS: OXYBUTYNIN 10 MG PO SCH (08:07)
[2020-11-23] MEDS: BACLOFEN 10 MG PO SCH ×3 (08:07→20:42)
[2020-11-23] MEDS: Zinc Sulfate 220 MG (50mg elemental Zinc) Cap PO SCH (08:09)
[2020-11-23] MEDS: Cholecalciferol (Vitamin D3) 25 MCG Tab PO SCH (08:09)
[2020-11-23] MEDS: Lactobacillus Rhamnosus GG (Probiotic) Cap PO SCH (08:09)
[2020-11-23] MEDS: Acetaminophen 325 MG Tab PO SCH ×2 (08:10→20:41)
[2020-11-23] MEDS: Ascorbic Acid 500 MG Tab PO SCH (08:10)
[2020-11-23] MEDS: Multivitamins with Iron/Calcium/Folic Acid/Minerals Tab PO SCH (08:11)
[2020-11-23] MEDS: Cyanocobalamin (Vitamin B12) 250 MCG Tab PO SCH (08:11)
[2020-11-24] MEDS: BACLOFEN 10 MG PO SCH ×3 (07:22→19:45)
[2020-11-24] MEDS: OXYBUTYNIN 10 MG PO SCH (07:23)
[2020-11-24] MEDS: Acetaminophen 325 MG Tab PO SCH ×2 (07:24→19:44)
[2020-11-24] MEDS: Multivitamins with Iron/Calcium/Folic Acid/Minerals Tab PO SCH (07:25)
[2020-11-24] MEDS: Cholecalciferol (Vitamin D3) 25 MCG Tab PO SCH (07:25)
[2020-11-24] MEDS: Cyanocobalamin (Vitamin B12) 250 MCG Tab PO SCH (07:25)
[2020-11-24] MEDS: Ascorbic Acid 500 MG Tab PO SCH (07:25)
[2020-11-24] MEDS: Zinc Sulfate 220 MG (50mg elemental Zinc) Cap PO SCH (07:25)
[2020-11-24] MEDS: Lactobacillus Rhamnosus GG (Probiotic) Cap PO SCH (07:25)
[2020-11-25] MEDS: OXYBUTYNIN 10 MG PO SCH (07:19)
[2020-11-25] MEDS: Cyanocobalamin (Vitamin B12) 250 MCG Tab PO SCH (07:20)
[2020-11-25] MEDS: Cholecalciferol (Vitamin D3) 25 MCG Tab PO SCH (07:20)
[2020-11-25] MEDS: Zinc Sulfate 220 MG (50mg elemental Zinc) Cap PO SCH (07:20)
[2020-11-25] MEDS: Lactobacillus Rhamnosus GG (Probiotic) Cap PO SCH (07:20)
[2020-11-25] MEDS: Acetaminophen 325 MG Tab PO SCH ×2 (07:20→19:50)
[2020-11-25] MEDS: BACLOFEN 10 MG PO SCH ×3 (07:20→19:50)
[2020-11-25] MEDS: Ascorbic Acid 500 MG Tab PO SCH (07:20)
[2020-11-25] MEDS: Multivitamins with Iron/Calcium/Folic Acid/Minerals Tab PO SCH (07:21)
[2020-11-26] MEDS: Cyanocobalamin (Vitamin B12) 250 MCG Tab PO SCH (07:31)
[2020-11-26] MEDS: OXYBUTYNIN 10 MG PO SCH (07:31)
[2020-11-26] MEDS: Multivitamins with Iron/Calcium/Folic Acid/Minerals Tab PO SCH (07:31)
[2020-11-26] MEDS: BACLOFEN 10 MG PO SCH ×3 (07:31→19:45)
[2020-11-26] MEDS: Acetaminophen 325 MG Tab PO SCH ×2 (07:32→19:46)
[2020-11-26] MEDS: Lactobacillus Rhamnosus GG (Probiotic) Cap PO SCH (07:32)
[2020-11-26] MEDS: Zinc Sulfate 220 MG (50mg elemental Zinc) Cap PO SCH (07:32)
[2020-11-26] MEDS: Ascorbic Acid 500 MG Tab PO SCH (07:32)
[2020-11-26] MEDS: Cholecalciferol (Vitamin D3) 25 MCG Tab PO SCH (07:32)
[2020-11-27] MEDS: Lactobacillus Rhamnosus GG (Probiotic) Cap PO SCH (07:57)
[2020-11-27] MEDS: Multivitamins with Iron/Calcium/Folic Acid/Minerals Tab PO SCH (07:57)
[2020-11-27] MEDS: BACLOFEN 10 MG PO SCH ×3 (07:57→19:41)
[2020-11-27] MEDS: Zinc Sulfate 220 MG (50mg elemental Zinc) Cap PO SCH (07:57)
[2020-11-27] MEDS: Cholecalciferol (Vitamin D3) 25 MCG Tab PO SCH (07:57)
[2020-11-27] MEDS: Cyanocobalamin (Vitamin B12) 250 MCG Tab PO SCH (07:57)
[2020-11-27] MEDS: OXYBUTYNIN 10 MG PO SCH (07:57)
[2020-11-27] MEDS: Ascorbic Acid 500 MG Tab PO SCH (07:58)
[2020-11-27] MEDS: Acetaminophen 325 MG Tab PO SCH ×2 (07:58→19:40)
[2020-11-28] MEDS: Cholecalciferol (Vitamin D3) 25 MCG Tab PO SCH (07:32)
[2020-11-28] MEDS: Acetaminophen 325 MG Tab PO SCH ×2 (07:32→19:55)
[2020-11-28] MEDS: Cyanocobalamin (Vitamin B12) 250 MCG Tab PO SCH (07:32)
[2020-11-28] MEDS: Multivitamins with Iron/Calcium/Folic Acid/Minerals Tab PO SCH (07:33)
[2020-11-28] MEDS: Ascorbic Acid 500 MG Tab PO SCH (07:33)
[2020-11-28] MEDS: Lactobacillus Rhamnosus GG (Probiotic) Cap PO SCH (07:33)
[2020-11-28] MEDS: Zinc Sulfate 220 MG (50mg elemental Zinc) Cap PO SCH (07:33)
[2020-11-28] MEDS: BACLOFEN 10 MG PO SCH ×3 (07:35→19:55)
[2020-11-28] MEDS: OXYBUTYNIN 10 MG PO SCH (07:35)
[2020-11-29] MEDS: Cholecalciferol (Vitamin D3) 25 MCG Tab PO SCH (08:11)
[2020-11-29] MEDS: Lactobacillus Rhamnosus GG (Probiotic) Cap PO SCH (08:11)
[2020-11-29] MEDS: Multivitamins with Iron/Calcium/Folic Acid/Minerals Tab PO SCH (08:12)
[2020-11-29] MEDS: Zinc Sulfate 220 MG (50mg elemental Zinc) Cap PO SCH (08:12)
[2020-11-29] MEDS: Acetaminophen 325 MG Tab PO SCH ×2 (08:12→20:24)
[2020-11-29] MEDS: Ascorbic Acid 500 MG Tab PO SCH (08:12)
[2020-11-29] MEDS: Cyanocobalamin (Vitamin B12) 250 MCG Tab PO SCH (08:12)
[2020-11-29] MEDS: OXYBUTYNIN 10 MG PO SCH (08:14)
[2020-11-29] MEDS: BACLOFEN 10 MG PO SCH ×3 (08:14→20:24)
[2020-11-30] MEDS: BACLOFEN 10 MG PO SCH ×3 (07:27→19:43)
[2020-11-30] MEDS: OXYBUTYNIN 10 MG PO SCH (07:27)
[2020-11-30] MEDS: Multivitamins with Iron/Calcium/Folic Acid/Minerals Tab PO SCH (07:28)
[2020-11-30] MEDS: Ascorbic Acid 500 MG Tab PO SCH (07:28)
[2020-11-30] MEDS: Zinc Sulfate 220 MG (50mg elemental Zinc) Cap PO SCH (07:28)
[2020-11-30] MEDS: Cyanocobalamin (Vitamin B12) 250 MCG Tab PO SCH (07:28)
[2020-11-30] MEDS: Cholecalciferol (Vitamin D3) 25 MCG Tab PO SCH (07:28)
[2020-11-30] MEDS: Lactobacillus Rhamnosus GG (Probiotic) Cap PO SCH (07:28)
[2020-11-30] MEDS: Acetaminophen 325 MG Tab PO SCH ×2 (07:28→19:43)
[2020-12-01] MEDS: BACLOFEN 10 MG PO SCH ×3 (07:23→20:02)
[2020-12-01] MEDS: OXYBUTYNIN 10 MG PO SCH (07:23)
[2020-12-01] MEDS: Lactobacillus Rhamnosus GG (Probiotic) Cap PO SCH (07:24)
[2020-12-01] MEDS: Cholecalciferol (Vitamin D3) 25 MCG Tab PO SCH (07:24)
[2020-12-01] MEDS: Cyanocobalamin (Vitamin B12) 250 MCG Tab PO SCH (07:25)
[2020-12-01] MEDS: Ascorbic Acid 500 MG Tab PO SCH (07:25)
[2020-12-01] MEDS: Acetaminophen 325 MG Tab PO SCH ×2 (07:25→20:03)
[2020-12-01] MEDS: Zinc Sulfate 220 MG (50mg elemental Zinc) Cap PO SCH (07:25)
[2020-12-01] MEDS: Multivitamins with Iron/Calcium/Folic Acid/Minerals Tab PO SCH (07:25)
[2020-12-02] MEDS: Acetaminophen 325 MG Tab PO SCH ×2 (07:22→20:13)
[2020-12-02] MEDS: Cholecalciferol (Vitamin D3) 25 MCG Tab PO SCH (07:23)
[2020-12-02] MEDS: OXYBUTYNIN 10 MG PO SCH (07:23)
[2020-12-02] MEDS: Zinc Sulfate 220 MG (50mg elemental Zinc) Cap PO SCH (07:23)
[2020-12-02] MEDS: BACLOFEN 10 MG PO SCH ×3 (07:23→20:11)
[2020-12-02] MEDS: Multivitamins with Iron/Calcium/Folic Acid/Minerals Tab PO SCH (07:23)
[2020-12-02] MEDS: Lactobacillus Rhamnosus GG (Probiotic) Cap PO SCH (07:23)
[2020-12-02] MEDS: Cyanocobalamin (Vitamin B12) 250 MCG Tab PO SCH (07:23)
[2020-12-02] MEDS: Ascorbic Acid 500 MG Tab PO SCH (07:24)
[2020-12-03] MEDS: Cyanocobalamin (Vitamin B12) 250 MCG Tab PO SCH (08:54)
[2020-12-03] MEDS: Cholecalciferol (Vitamin D3) 25 MCG Tab PO SCH (08:55)
[2020-12-03] MEDS: Zinc Sulfate 220 MG (50mg elemental Zinc) Cap PO SCH (08:56)
[2020-12-03] MEDS: Ascorbic Acid 500 MG Tab PO SCH (08:56)
[2020-12-03] MEDS: Multivitamins with Iron/Calcium/Folic Acid/Minerals Tab PO SCH (08:56)
[2020-12-03] MEDS: Acetaminophen 325 MG Tab PO SCH ×2 (08:56→19:55)
[2020-12-03] MEDS: Lactobacillus Rhamnosus GG (Probiotic) Cap PO SCH (08:56)
[2020-12-03] MEDS: BACLOFEN 10 MG PO SCH ×3 (09:00→19:55)
[2020-12-03] MEDS: OXYBUTYNIN 10 MG PO SCH (09:01)
[2020-12-04] MEDS: OXYBUTYNIN 10 MG PO SCH (12:09)
[2020-12-04] MEDS: BACLOFEN 10 MG PO SCH ×3 (12:09→20:02)
[2020-12-04] MEDS: Acetaminophen 325 MG Tab PO SCH ×2 (12:10→20:03)
[2020-12-04] MEDS: Multivitamins with Iron/Calcium/Folic Acid/Minerals Tab PO SCH (12:10)
[2020-12-04] MEDS: Lactobacillus Rhamnosus GG (Probiotic) Cap PO SCH (12:10)
[2020-12-04] MEDS: Cholecalciferol (Vitamin D3) 25 MCG Tab PO SCH (12:10)
[2020-12-04] MEDS: Zinc Sulfate 220 MG (50mg elemental Zinc) Cap PO SCH (12:10)
[2020-12-04] MEDS: Cyanocobalamin (Vitamin B12) 250 MCG Tab PO SCH (12:10)
[2020-12-04] MEDS: Ascorbic Acid 500 MG Tab PO SCH (12:11)
[2020-12-05] MEDS: OXYBUTYNIN 10 MG PO SCH (07:16)
[2020-12-05] MEDS: Cholecalciferol (Vitamin D3) 25 MCG Tab PO SCH (07:16)
[2020-12-05] MEDS: Lactobacillus Rhamnosus GG (Probiotic) Cap PO SCH (07:16)
[2020-12-05] MEDS: BACLOFEN 10 MG PO SCH ×3 (07:16→20:02)
[2020-12-05] MEDS: Acetaminophen 325 MG Tab PO SCH ×2 (07:16→20:03)
[2020-12-05] MEDS: Zinc Sulfate 220 MG (50mg elemental Zinc) Cap PO SCH (07:17)
[2020-12-05] MEDS: Multivitamins with Iron/Calcium/Folic Acid/Minerals Tab PO SCH (07:17)
[2020-12-05] MEDS: Ascorbic Acid 500 MG Tab PO SCH (07:17)
[2020-12-05] MEDS: Cyanocobalamin (Vitamin B12) 250 MCG Tab PO SCH (07:17)
[2020-12-06] MEDS: OXYBUTYNIN 10 MG PO SCH (07:31)
[2020-12-06] MEDS: BACLOFEN 10 MG PO SCH ×3 (07:31→20:47)
[2020-12-06] MEDS: Ascorbic Acid 500 MG Tab PO SCH (07:32)
[2020-12-06] MEDS: Cyanocobalamin (Vitamin B12) 250 MCG Tab PO SCH (07:32)
[2020-12-06] MEDS: Cholecalciferol (Vitamin D3) 25 MCG Tab PO SCH (07:32)
[2020-12-06] MEDS: Acetaminophen 325 MG Tab PO SCH ×2 (07:33→20:52)
[2020-12-06] MEDS: Lactobacillus Rhamnosus GG (Probiotic) Cap PO SCH (07:33)
[2020-12-06] MEDS: Zinc Sulfate 220 MG (50mg elemental Zinc) Cap PO SCH (07:33)
[2020-12-06] MEDS: Multivitamins with Iron/Calcium/Folic Acid/Minerals Tab PO SCH (07:33)
[2020-12-07] MEDS: BACLOFEN 10 MG PO SCH ×3 (07:25→19:55)
[2020-12-07] MEDS: Acetaminophen 325 MG Tab PO SCH ×2 (07:25→19:56)
[2020-12-07] MEDS: Lactobacillus Rhamnosus GG (Probiotic) Cap PO SCH (07:25)
[2020-12-07] MEDS: Zinc Sulfate 220 MG (50mg elemental Zinc) Cap PO SCH (07:25)
[2020-12-07] MEDS: OXYBUTYNIN 10 MG PO SCH (07:25)
[2020-12-07] MEDS: Multivitamins with Iron/Calcium/Folic Acid/Minerals Tab PO SCH (07:25)
[2020-12-07] MEDS: Cyanocobalamin (Vitamin B12) 250 MCG Tab PO SCH (07:26)
[2020-12-07] MEDS: Cholecalciferol (Vitamin D3) 25 MCG Tab PO SCH (07:26)
[2020-12-07] MEDS: Ascorbic Acid 500 MG Tab PO SCH (07:26)
[2020-12-08] MEDS: Multivitamins with Iron/Calcium/Folic Acid/Minerals Tab PO SCH (07:18)
[2020-12-08] MEDS: Zinc Sulfate 220 MG (50mg elemental Zinc) Cap PO SCH (07:18)
[2020-12-08] MEDS: Acetaminophen 325 MG Tab PO SCH ×2 (07:18→19:52)
[2020-12-08] MEDS: Cyanocobalamin (Vitamin B12) 250 MCG Tab PO SCH (07:19)
[2020-12-08] MEDS: Lactobacillus Rhamnosus GG (Probiotic) Cap PO SCH (07:19)
[2020-12-08] MEDS: Cholecalciferol (Vitamin D3) 25 MCG Tab PO SCH (07:19)
[2020-12-08] MEDS: OXYBUTYNIN 10 MG PO SCH (07:20)
[2020-12-08] MEDS: BACLOFEN 10 MG PO SCH ×3 (07:20→19:52)
[2020-12-08] MEDS: Ascorbic Acid 500 MG Tab PO SCH (07:20)
[2020-12-09] MEDS: Cyanocobalamin (Vitamin B12) 250 MCG Tab PO SCH (07:56)
[2020-12-09] MEDS: OXYBUTYNIN 10 MG PO SCH (07:57)
[2020-12-09] MEDS: Zinc Sulfate 220 MG (50mg elemental Zinc) Cap PO SCH (07:57)
[2020-12-09] MEDS: Acetaminophen 325 MG Tab PO SCH ×2 (07:57→19:24)
[2020-12-09] MEDS: Ascorbic Acid 500 MG Tab PO SCH (07:57)
[2020-12-09] MEDS: Multivitamins with Iron/Calcium/Folic Acid/Minerals Tab PO SCH (07:57)
[2020-12-09] MEDS: BACLOFEN 10 MG PO SCH ×3 (07:57→19:25)
[2020-12-09] MEDS: Lactobacillus Rhamnosus GG (Probiotic) Cap PO SCH (07:57)
[2020-12-09] MEDS: Cholecalciferol (Vitamin D3) 25 MCG Tab PO SCH (07:57)
[2020-12-10] MEDS: BACLOFEN 10 MG PO SCH ×3 (09:29→19:40)
[2020-12-10] MEDS: OXYBUTYNIN 10 MG PO SCH (09:30)
[2020-12-10] MEDS: Cyanocobalamin (Vitamin B12) 250 MCG Tab PO SCH (09:30)
[2020-12-10] MEDS: Cholecalciferol (Vitamin D3) 25 MCG Tab PO SCH (09:30)
[2020-12-10] MEDS: Lactobacillus Rhamnosus GG (Probiotic) Cap PO SCH (09:31)
[2020-12-10] MEDS: Acetaminophen 325 MG Tab PO SCH ×2 (09:31→19:41)
[2020-12-10] MEDS: Ascorbic Acid 500 MG Tab PO SCH (09:31)
[2020-12-10] MEDS: Zinc Sulfate 220 MG (50mg elemental Zinc) Cap PO SCH (09:31)
[2020-12-10] MEDS: Multivitamins with Iron/Calcium/Folic Acid/Minerals Tab PO SCH (09:43)
[2020-12-11] MEDS: BACLOFEN 10 MG PO SCH ×3 (07:18→19:21)
[2020-12-11] MEDS: Cyanocobalamin (Vitamin B12) 250 MCG Tab PO SCH (07:18)
[2020-12-11] MEDS: Acetaminophen 325 MG Tab PO SCH ×2 (07:18→19:21)
[2020-12-11] MEDS: OXYBUTYNIN 10 MG PO SCH (07:18)
[2020-12-11] MEDS: Cholecalciferol (Vitamin D3) 25 MCG Tab PO SCH (07:19)
[2020-12-11] MEDS: Lactobacillus Rhamnosus GG (Probiotic) Cap PO SCH (07:19)
[2020-12-11] MEDS: Zinc Sulfate 220 MG (50mg elemental Zinc) Cap PO SCH (07:19)
[2020-12-11] MEDS: Ascorbic Acid 500 MG Tab PO SCH (07:19)
[2020-12-11] MEDS: Multivitamins with Iron/Calcium/Folic Acid/Minerals Tab PO SCH (07:19)
[2020-12-12] MEDS: BACLOFEN 10 MG PO SCH ×3 (07:53→20:14)
[2020-12-12] MEDS: OXYBUTYNIN 10 MG PO SCH (07:54)
[2020-12-12] MEDS: Acetaminophen 325 MG Tab PO SCH ×2 (07:55→20:14)
[2020-12-12] MEDS: Ascorbic Acid 500 MG Tab PO SCH (07:55)
[2020-12-12] MEDS: Lactobacillus Rhamnosus GG (Probiotic) Cap PO SCH (07:55)
[2020-12-12] MEDS: Zinc Sulfate 220 MG (50mg elemental Zinc) Cap PO SCH (07:55)
[2020-12-12] MEDS: Cholecalciferol (Vitamin D3) 25 MCG Tab PO SCH (07:55)
[2020-12-12] MEDS: Cyanocobalamin (Vitamin B12) 250 MCG Tab PO SCH (07:55)
[2020-12-12] MEDS: Multivitamins with Iron/Calcium/Folic Acid/Minerals Tab PO SCH (07:55)
[2020-12-13] MEDS: OXYBUTYNIN 10 MG PO SCH (08:06)
[2020-12-13] MEDS: BACLOFEN 10 MG PO SCH ×3 (08:06→19:37)
[2020-12-13] MEDS: Lactobacillus Rhamnosus GG (Probiotic) Cap PO SCH (08:07)
[2020-12-13] MEDS: Cholecalciferol (Vitamin D3) 25 MCG Tab PO SCH (08:07)
[2020-12-13] MEDS: Cyanocobalamin (Vitamin B12) 250 MCG Tab PO SCH (08:07)
[2020-12-13] MEDS: Zinc Sulfate 220 MG (50mg elemental Zinc) Cap PO SCH (08:07)
[2020-12-13] MEDS: Acetaminophen 325 MG Tab PO SCH ×2 (08:07→19:38)
[2020-12-13] MEDS: Ascorbic Acid 500 MG Tab PO SCH (08:08)
[2020-12-13] MEDS: Multivitamins with Iron/Calcium/Folic Acid/Minerals Tab PO SCH (08:08)
[2020-12-14] MEDS: Cholecalciferol (Vitamin D3) 25 MCG Tab PO SCH (07:20)
[2020-12-14] MEDS: Zinc Sulfate 220 MG (50mg elemental Zinc) Cap PO SCH (07:20)
[2020-12-14] MEDS: Ascorbic Acid 500 MG Tab PO SCH (07:20)
[2020-12-14] MEDS: Acetaminophen 325 MG Tab PO SCH ×2 (07:20→20:30)
[2020-12-14] MEDS: Cyanocobalamin (Vitamin B12) 250 MCG Tab PO SCH (07:21)
[2020-12-14] MEDS: BACLOFEN 10 MG PO SCH ×3 (07:21→20:30)
[2020-12-14] MEDS: Multivitamins with Iron/Calcium/Folic Acid/Minerals Tab PO SCH (07:21)
[2020-12-14] MEDS: OXYBUTYNIN 10 MG PO SCH (07:21)
[2020-12-14] MEDS: Lactobacillus Rhamnosus GG (Probiotic) Cap PO SCH (07:21)
[2020-12-15] MEDS: OXYBUTYNIN 10 MG PO SCH (07:39)
[2020-12-15] MEDS: Cholecalciferol (Vitamin D3) 25 MCG Tab PO SCH (07:40)
[2020-12-15] MEDS: BACLOFEN 10 MG PO SCH ×3 (07:40→20:16)
[2020-12-15] MEDS: Lactobacillus Rhamnosus GG (Probiotic) Cap PO SCH (07:43)
[2020-12-15] MEDS: Acetaminophen 325 MG Tab PO SCH ×2 (07:43→20:16)
[2020-12-15] MEDS: Multivitamins with Iron/Calcium/Folic Acid/Minerals Tab PO SCH (07:43)
[2020-12-15] MEDS: Zinc Sulfate 220 MG (50mg elemental Zinc) Cap PO SCH (07:43)
[2020-12-15] MEDS: Cyanocobalamin (Vitamin B12) 250 MCG Tab PO SCH (07:44)
[2020-12-15] MEDS: Ascorbic Acid 500 MG Tab PO SCH (07:44)
[2020-12-16] MEDS: BACLOFEN 10 MG PO SCH ×4 (08:28→19:54)
[2020-12-16] MEDS: Ascorbic Acid 500 MG Tab PO SCH (08:29)
[2020-12-16] MEDS: Acetaminophen 325 MG Tab PO SCH ×2 (08:30→19:53)
[2020-12-16] MEDS: Lactobacillus Rhamnosus GG (Probiotic) Cap PO SCH (08:30)
[2020-12-16] MEDS: Multivitamins with Iron/Calcium/Folic Acid/Minerals Tab PO SCH (08:30)
[2020-12-16] MEDS: Cholecalciferol (Vitamin D3) 25 MCG Tab PO SCH (08:30)
[2020-12-16] MEDS: Cyanocobalamin (Vitamin B12) 250 MCG Tab PO SCH (08:31)
[2020-12-16] MEDS: Zinc Sulfate 220 MG (50mg elemental Zinc) Cap PO SCH (08:32)
[2020-12-16] MEDS: OXYBUTYNIN 10 MG PO SCH (09:47)
[2020-12-17] MEDS: BACLOFEN 10 MG PO SCH ×3 (07:30→19:59)
[2020-12-17] MEDS: OXYBUTYNIN 10 MG PO SCH (07:30)
[2020-12-17] MEDS: Ascorbic Acid 500 MG Tab PO SCH (07:31)
[2020-12-17] MEDS: Acetaminophen 325 MG Tab PO SCH ×2 (07:31→19:59)
[2020-12-17] MEDS: Lactobacillus Rhamnosus GG (Probiotic) Cap PO SCH (07:31)
[2020-12-17] MEDS: Multivitamins with Iron/Calcium/Folic Acid/Minerals Tab PO SCH (07:31)
[2020-12-17] MEDS: Cholecalciferol (Vitamin D3) 25 MCG Tab PO SCH (07:31)
[2020-12-17] MEDS: Cyanocobalamin (Vitamin B12) 250 MCG Tab PO SCH (07:31)
[2020-12-17] MEDS: Zinc Sulfate 220 MG (50mg elemental Zinc) Cap PO SCH (07:31)
[2020-12-18] MEDS: OXYBUTYNIN 10 MG PO SCH (07:25)
[2020-12-18] MEDS: BACLOFEN 10 MG PO SCH ×3 (07:25→19:25)
[2020-12-18] MEDS: Lactobacillus Rhamnosus GG (Probiotic) Cap PO SCH (07:26)
[2020-12-18] MEDS: Acetaminophen 325 MG Tab PO SCH ×2 (07:26→19:26)
[2020-12-18] MEDS: Cholecalciferol (Vitamin D3) 25 MCG Tab PO SCH (07:26)
[2020-12-18] MEDS: Cyanocobalamin (Vitamin B12) 250 MCG Tab PO SCH (07:26)
[2020-12-18] MEDS: Ascorbic Acid 500 MG Tab PO SCH (07:26)
[2020-12-18] MEDS: Zinc Sulfate 220 MG (50mg elemental Zinc) Cap PO SCH (07:26)
[2020-12-18] MEDS: Multivitamins with Iron/Calcium/Folic Acid/Minerals Tab PO SCH (07:27)
[2020-12-19] MEDS: Multivitamins with Iron/Calcium/Folic Acid/Minerals Tab PO SCH (08:33)
[2020-12-19] MEDS: Cholecalciferol (Vitamin D3) 25 MCG Tab PO SCH (08:34)
[2020-12-19] MEDS: Ascorbic Acid 500 MG Tab PO SCH (08:34)
[2020-12-19] MEDS: Zinc Sulfate 220 MG (50mg elemental Zinc) Cap PO SCH (08:34)
[2020-12-19] MEDS: Lactobacillus Rhamnosus GG (Probiotic) Cap PO SCH (08:34)
[2020-12-19] MEDS: Acetaminophen 325 MG Tab PO SCH ×2 (08:34→20:30)
[2020-12-19] MEDS: Cyanocobalamin (Vitamin B12) 250 MCG Tab PO SCH (08:34)
[2020-12-19] MEDS: OXYBUTYNIN 10 MG PO SCH (08:35)
[2020-12-19] MEDS: BACLOFEN 10 MG PO SCH ×3 (08:36→20:30)
[2020-12-20] MEDS: Acetaminophen 325 MG Tab PO SCH ×2 (08:01→19:42)
[2020-12-20] MEDS: Cyanocobalamin (Vitamin B12) 250 MCG Tab PO SCH (08:02)
[2020-12-20] MEDS: Zinc Sulfate 220 MG (50mg elemental Zinc) Cap PO SCH (08:02)
[2020-12-20] MEDS: Ascorbic Acid 500 MG Tab PO SCH (08:04)
[2020-12-20] MEDS: Cholecalciferol (Vitamin D3) 25 MCG Tab PO SCH (08:04)
[2020-12-20] MEDS: Lactobacillus Rhamnosus GG (Probiotic) Cap PO SCH (08:04)
[2020-12-20] MEDS: Multivitamins with Iron/Calcium/Folic Acid/Minerals Tab PO SCH (08:04)
[2020-12-20] MEDS: OXYBUTYNIN 10 MG PO SCH (08:06)
[2020-12-20] MEDS: BACLOFEN 10 MG PO SCH ×3 (08:06→19:42)
[2020-12-21] MEDS: Cholecalciferol (Vitamin D3) 25 MCG Tab PO SCH (08:14)
[2020-12-21] MEDS: Acetaminophen 325 MG Tab PO SCH ×2 (08:15→19:55)
[2020-12-21] MEDS: Multivitamins with Iron/Calcium/Folic Acid/Minerals Tab PO SCH (08:15)
[2020-12-21] MEDS: Zinc Sulfate 220 MG (50mg elemental Zinc) Cap PO SCH (08:15)
[2020-12-21] MEDS: Cyanocobalamin (Vitamin B12) 250 MCG Tab PO SCH (08:15)
[2020-12-21] MEDS: Ascorbic Acid 500 MG Tab PO SCH (08:15)
[2020-12-21] MEDS: Lactobacillus Rhamnosus GG (Probiotic) Cap PO SCH (08:16)
[2020-12-21] MEDS: OXYBUTYNIN 10 MG PO SCH (08:18)
[2020-12-21] MEDS: BACLOFEN 10 MG PO SCH ×3 (08:18→19:55)
[2020-12-22] MEDS: OXYBUTYNIN 10 MG PO SCH (07:22)
[2020-12-22] MEDS: BACLOFEN 10 MG PO SCH ×3 (07:22→19:36)
[2020-12-22] MEDS: Cyanocobalamin (Vitamin B12) 250 MCG Tab PO SCH (07:23)
[2020-12-22] MEDS: Acetaminophen 325 MG Tab PO SCH ×2 (07:23→19:37)
[2020-12-22] MEDS: Ascorbic Acid 500 MG Tab PO SCH (07:23)
[2020-12-22] MEDS: Cholecalciferol (Vitamin D3) 25 MCG Tab PO SCH (07:23)
[2020-12-22] MEDS: Lactobacillus Rhamnosus GG (Probiotic) Cap PO SCH (07:24)
[2020-12-22] MEDS: Zinc Sulfate 220 MG (50mg elemental Zinc) Cap PO SCH (07:24)
[2020-12-22] MEDS: Multivitamins with Iron/Calcium/Folic Acid/Minerals Tab PO SCH (07:24)
[2020-12-23] MEDS: Multivitamins with Iron/Calcium/Folic Acid/Minerals Tab PO SCH (07:16)
[2020-12-23] MEDS: Cholecalciferol (Vitamin D3) 25 MCG Tab PO SCH (07:16)
[2020-12-23] MEDS: Ascorbic Acid 500 MG Tab PO SCH (07:16)
[2020-12-23] MEDS: Cyanocobalamin (Vitamin B12) 250 MCG Tab PO SCH (07:17)
[2020-12-23] MEDS: OXYBUTYNIN 10 MG PO SCH (07:17)
[2020-12-23] MEDS: Acetaminophen 325 MG Tab PO SCH ×2 (07:17→22:30)
[2020-12-23] MEDS: Lactobacillus Rhamnosus GG (Probiotic) Cap PO SCH (07:17)
[2020-12-23] MEDS: BACLOFEN 10 MG PO SCH ×3 (07:17→22:31)
[2020-12-23] MEDS: Zinc Sulfate 220 MG (50mg elemental Zinc) Cap PO SCH (07:18)
[2020-12-24] MEDS: OXYBUTYNIN 10 MG PO SCH (07:51)
[2020-12-24] MEDS: Cyanocobalamin (Vitamin B12) 250 MCG Tab PO SCH (07:52)
[2020-12-24] MEDS: Multivitamins with Iron/Calcium/Folic Acid/Minerals Tab PO SCH (07:52)
[2020-12-24] MEDS: Acetaminophen 325 MG Tab PO SCH ×2 (07:52→20:08)
[2020-12-24] MEDS: BACLOFEN 10 MG PO SCH ×3 (07:52→20:08)
[2020-12-24] MEDS: Zinc Sulfate 220 MG (50mg elemental Zinc) Cap PO SCH (07:52)
[2020-12-24] MEDS: Cholecalciferol (Vitamin D3) 25 MCG Tab PO SCH (07:52)
[2020-12-24] MEDS: Ascorbic Acid 500 MG Tab PO SCH (07:53)
[2020-12-24] MEDS: Lactobacillus Rhamnosus GG (Probiotic) Cap PO SCH (07:53)
[2020-12-25] MEDS: Acetaminophen 325 MG Tab PO SCH ×2 (10:45→20:10)
[2020-12-25] MEDS: Cholecalciferol (Vitamin D3) 25 MCG Tab PO SCH (10:46)
[2020-12-25] MEDS: Lactobacillus Rhamnosus GG (Probiotic) Cap PO SCH (10:46)
[2020-12-25] MEDS: Multivitamins with Iron/Calcium/Folic Acid/Minerals Tab PO SCH (10:47)
[2020-12-25] MEDS: Zinc Sulfate 220 MG (50mg elemental Zinc) Cap PO SCH (10:47)
[2020-12-25] MEDS: Ascorbic Acid 500 MG Tab PO SCH (10:47)
[2020-12-25] MEDS: Cyanocobalamin (Vitamin B12) 250 MCG Tab PO SCH (10:48)
[2020-12-25] MEDS: OXYBUTYNIN 10 MG PO SCH (10:48)
[2020-12-25] MEDS: BACLOFEN 10 MG PO SCH ×3 (10:49→20:10)
[2020-12-26] MEDS: OXYBUTYNIN 10 MG PO SCH (07:55)
[2020-12-26] MEDS: BACLOFEN 10 MG PO SCH ×3 (07:55→20:11)
[2020-12-26] MEDS: Cyanocobalamin (Vitamin B12) 250 MCG Tab PO SCH (07:56)
[2020-12-26] MEDS: Cholecalciferol (Vitamin D3) 25 MCG Tab PO SCH (07:57)
[2020-12-26] MEDS: Zinc Sulfate 220 MG (50mg elemental Zinc) Cap PO SCH (07:57)
[2020-12-26] MEDS: Acetaminophen 325 MG Tab PO SCH ×2 (07:58→20:10)
[2020-12-26] MEDS: Ascorbic Acid 500 MG Tab PO SCH (07:58)
[2020-12-26] MEDS: Lactobacillus Rhamnosus GG (Probiotic) Cap PO SCH (07:58)
[2020-12-26] MEDS: Multivitamins with Iron/Calcium/Folic Acid/Minerals Tab PO SCH (07:59)
[2020-12-27] MEDS: Lactobacillus Rhamnosus GG (Probiotic) Cap PO SCH (07:48)
[2020-12-27] MEDS: Ascorbic Acid 500 MG Tab PO SCH (07:48)
[2020-12-27] MEDS: Multivitamins with Iron/Calcium/Folic Acid/Minerals Tab PO SCH (07:48)
[2020-12-27] MEDS: Cyanocobalamin (Vitamin B12) 250 MCG Tab PO SCH (07:48)
[2020-12-27] MEDS: Zinc Sulfate 220 MG (50mg elemental Zinc) Cap PO SCH (07:48)
[2020-12-27] MEDS: Acetaminophen 325 MG Tab PO SCH ×2 (07:48→19:37)
[2020-12-27] MEDS: Cholecalciferol (Vitamin D3) 25 MCG Tab PO SCH (07:48)
[2020-12-27] MEDS: BACLOFEN 10 MG PO SCH ×3 (07:49→19:37)
[2020-12-27] MEDS: OXYBUTYNIN 10 MG PO SCH (07:50)
[2020-12-28] MEDS: BACLOFEN 10 MG PO SCH ×3 (12:16→20:13)
[2020-12-28] MEDS: Acetaminophen 325 MG Tab PO PRN (18:11)
[2020-12-28] MEDS: OXYBUTYNIN 10 MG PO SCH (18:25)
[2020-12-28] MEDS: Lactobacillus Rhamnosus GG (Probiotic) Cap PO SCH (18:25)
[2020-12-28] MEDS: Cholecalciferol (Vitamin D3) 25 MCG Tab PO SCH (18:26)
[2020-12-28] MEDS: Cyanocobalamin (Vitamin B12) 250 MCG Tab PO SCH (18:26)
[2020-12-28] MEDS: Acetaminophen 325 MG Tab PO SCH ×2 (18:26→20:14)
[2020-12-28] MEDS: Zinc Sulfate 220 MG (50mg elemental Zinc) Cap PO SCH (18:26)
[2020-12-28] MEDS: Ascorbic Acid 500 MG Tab PO SCH (18:26)
[2020-12-28] MEDS: Multivitamins with Iron/Calcium/Folic Acid/Minerals Tab PO SCH (18:26)
[2020-12-29] MEDS: OXYBUTYNIN 10 MG PO SCH (07:40)
[2020-12-29] MEDS: Cyanocobalamin (Vitamin B12) 250 MCG Tab PO SCH (07:40)
[2020-12-29] MEDS: BACLOFEN 10 MG PO SCH ×3 (07:40→19:26)
[2020-12-29] MEDS: Zinc Sulfate 220 MG (50mg elemental Zinc) Cap PO SCH (07:40)
[2020-12-29] MEDS: Lactobacillus Rhamnosus GG (Probiotic) Cap PO SCH (07:40)
[2020-12-29] MEDS: Ascorbic Acid 500 MG Tab PO SCH (07:41)
[2020-12-29] MEDS: Multivitamins with Iron/Calcium/Folic Acid/Minerals Tab PO SCH (07:41)
[2020-12-29] MEDS: Acetaminophen 325 MG Tab PO SCH ×2 (07:41→19:24)
[2020-12-29] MEDS: Cholecalciferol (Vitamin D3) 25 MCG Tab PO SCH (07:41)
[2020-12-30] MEDS: Cyanocobalamin (Vitamin B12) 250 MCG Tab PO SCH (07:36)
[2020-12-30] MEDS: Cholecalciferol (Vitamin D3) 25 MCG Tab PO SCH (07:37)
[2020-12-30] MEDS: Lactobacillus Rhamnosus GG (Probiotic) Cap PO SCH (07:37)
[2020-12-30] MEDS: Ascorbic Acid 500 MG Tab PO SCH (07:37)
[2020-12-30] MEDS: Zinc Sulfate 220 MG (50mg elemental Zinc) Cap PO SCH (07:37)
[2020-12-30] MEDS: Multivitamins with Iron/Calcium/Folic Acid/Minerals Tab PO SCH (07:37)
[2020-12-30] MEDS: BACLOFEN 10 MG PO SCH ×3 (07:38→19:34)
[2020-12-30] MEDS: OXYBUTYNIN 10 MG PO SCH (07:38)
[2020-12-30] MEDS: Acetaminophen 325 MG Tab PO SCH ×2 (07:38→19:35)
[2020-12-31] MEDS: BACLOFEN 10 MG PO SCH ×3 (07:28→19:43)
[2020-12-31] MEDS: OXYBUTYNIN 10 MG PO SCH (07:29)
[2020-12-31] MEDS: Lactobacillus Rhamnosus GG (Probiotic) Cap PO SCH (07:30)
[2020-12-31] MEDS: Acetaminophen 325 MG Tab PO SCH ×2 (07:30→19:43)
[2020-12-31] MEDS: Zinc Sulfate 220 MG (50mg elemental Zinc) Cap PO SCH (07:30)
[2020-12-31] MEDS: Cholecalciferol (Vitamin D3) 25 MCG Tab PO SCH (07:30)
[2020-12-31] MEDS: Cyanocobalamin (Vitamin B12) 250 MCG Tab PO SCH (07:30)
[2020-12-31] MEDS: Multivitamins with Iron/Calcium/Folic Acid/Minerals Tab PO SCH (07:30)
[2020-12-31] MEDS: Ascorbic Acid 500 MG Tab PO SCH (07:31)
[2021-01-01] MEDS: BACLOFEN 10 MG PO SCH ×3 (08:24→19:29)
[2021-01-01] MEDS: OXYBUTYNIN 10 MG PO SCH (08:24)
[2021-01-01] MEDS: Lactobacillus Rhamnosus GG (Probiotic) Cap PO SCH (08:25)
[2021-01-01] MEDS: Multivitamins with Iron/Calcium/Folic Acid/Minerals Tab PO SCH (08:25)
[2021-01-01] MEDS: Cyanocobalamin (Vitamin B12) 250 MCG Tab PO SCH (08:26)
[2021-01-01] MEDS: Cholecalciferol (Vitamin D3) 25 MCG Tab PO SCH (08:26)
[2021-01-01] MEDS: Zinc Sulfate 220 MG (50mg elemental Zinc) Cap PO SCH (08:27)
[2021-01-01] MEDS: Acetaminophen 325 MG Tab PO SCH ×2 (08:27→19:30)
[2021-01-01] MEDS: Ascorbic Acid 500 MG Tab PO SCH (08:28)
[2021-01-02] MEDS: BACLOFEN 10 MG PO SCH ×3 (07:27→19:22)
[2021-01-02] MEDS: OXYBUTYNIN 10 MG PO SCH (07:27)
[2021-01-02] MEDS: Lactobacillus Rhamnosus GG (Probiotic) Cap PO SCH (07:28)
[2021-01-02] MEDS: Zinc Sulfate 220 MG (50mg elemental Zinc) Cap PO SCH (07:28)
[2021-01-02] MEDS: Ascorbic Acid 500 MG Tab PO SCH (07:28)
[2021-01-02] MEDS: Multivitamins with Iron/Calcium/Folic Acid/Minerals Tab PO SCH (07:28)
[2021-01-02] MEDS: Cholecalciferol (Vitamin D3) 25 MCG Tab PO SCH (07:28)
[2021-01-02] MEDS: Acetaminophen 325 MG Tab PO SCH ×2 (07:28→19:23)
[2021-01-02] MEDS: Cyanocobalamin (Vitamin B12) 250 MCG Tab PO SCH (07:28)
[2021-01-03] MEDS: BACLOFEN 10 MG PO SCH ×3 (08:45→19:36)
[2021-01-03] MEDS: OXYBUTYNIN 10 MG PO SCH (08:45)
[2021-01-03] MEDS: Lactobacillus Rhamnosus GG (Probiotic) Cap PO SCH (08:46)
[2021-01-03] MEDS: Zinc Sulfate 220 MG (50mg elemental Zinc) Cap PO SCH (08:46)
[2021-01-03] MEDS: Cholecalciferol (Vitamin D3) 25 MCG Tab PO SCH (08:46)
[2021-01-03] MEDS: Cyanocobalamin (Vitamin B12) 250 MCG Tab PO SCH (08:46)
[2021-01-03] MEDS: Ascorbic Acid 500 MG Tab PO SCH (08:47)
[2021-01-03] MEDS: Multivitamins with Iron/Calcium/Folic Acid/Minerals Tab PO SCH (08:47)
[2021-01-03] MEDS: Acetaminophen 325 MG Tab PO SCH ×2 (08:47→19:38)
[2021-01-04] MEDS: BACLOFEN 10 MG PO SCH ×3 (07:58→19:48)
[2021-01-04] MEDS: OXYBUTYNIN 10 MG PO SCH (07:58)
[2021-01-04] MEDS: Acetaminophen 325 MG Tab PO SCH ×2 (07:59→19:50)
[2021-01-04] MEDS: Cyanocobalamin (Vitamin B12) 250 MCG Tab PO SCH (08:00)
[2021-01-04] MEDS: Zinc Sulfate 220 MG (50mg elemental Zinc) Cap PO SCH (08:00)
[2021-01-04] MEDS: Ascorbic Acid 500 MG Tab PO SCH (08:00)
[2021-01-04] MEDS: Lactobacillus Rhamnosus GG (Probiotic) Cap PO SCH (08:01)
[2021-01-04] MEDS: Cholecalciferol (Vitamin D3) 25 MCG Tab PO SCH (08:01)
[2021-01-04] MEDS: Multivitamins with Iron/Calcium/Folic Acid/Minerals Tab PO SCH (08:02)
[2021-01-05] MEDS: Cholecalciferol (Vitamin D3) 25 MCG Tab PO SCH (08:54)
[2021-01-05] MEDS: OXYBUTYNIN 10 MG PO SCH (08:55)
[2021-01-05] MEDS: BACLOFEN 10 MG PO SCH ×3 (08:55→19:21)
[2021-01-05] MEDS: Cyanocobalamin (Vitamin B12) 250 MCG Tab PO SCH (08:55)
[2021-01-05] MEDS: Multivitamins with Iron/Calcium/Folic Acid/Minerals Tab PO SCH (08:55)
[2021-01-05] MEDS: Lactobacillus Rhamnosus GG (Probiotic) Cap PO SCH (08:55)
[2021-01-05] MEDS: Ascorbic Acid 500 MG Tab PO SCH (08:56)
[2021-01-05] MEDS: Acetaminophen 325 MG Tab PO SCH ×2 (08:56→19:21)
[2021-01-05] MEDS: Zinc Sulfate 220 MG (50mg elemental Zinc) Cap PO SCH (08:56)
[2021-01-06] MEDS: OXYBUTYNIN 10 MG PO SCH (07:38)
[2021-01-06] MEDS: BACLOFEN 10 MG PO SCH ×3 (07:39→19:49)
[2021-01-06] MEDS: Cholecalciferol (Vitamin D3) 25 MCG Tab PO SCH (07:39)
[2021-01-06] MEDS: Cyanocobalamin (Vitamin B12) 250 MCG Tab PO SCH (07:40)
[2021-01-06] MEDS: Ascorbic Acid 500 MG Tab PO SCH (07:41)
[2021-01-06] MEDS: Zinc Sulfate 220 MG (50mg elemental Zinc) Cap PO SCH (07:41)
[2021-01-06] MEDS: Multivitamins with Iron/Calcium/Folic Acid/Minerals Tab PO SCH (07:41)
[2021-01-06] MEDS: Lactobacillus Rhamnosus GG (Probiotic) Cap PO SCH (07:41)
[2021-01-06] MEDS: Acetaminophen 325 MG Tab PO SCH ×2 (07:42→19:49)
[2021-01-07] MEDS: Cyanocobalamin (Vitamin B12) 250 MCG Tab PO SCH (07:15)
[2021-01-07] MEDS: Acetaminophen 325 MG Tab PO SCH ×2 (07:15→19:44)
[2021-01-07] MEDS: Cholecalciferol (Vitamin D3) 25 MCG Tab PO SCH (07:15)
[2021-01-07] MEDS: BACLOFEN 10 MG PO SCH ×3 (07:15→19:43)
[2021-01-07] MEDS: Zinc Sulfate 220 MG (50mg elemental Zinc) Cap PO SCH (07:15)
[2021-01-07] MEDS: OXYBUTYNIN 10 MG PO SCH (07:15)
[2021-01-07] MEDS: Lactobacillus Rhamnosus GG (Probiotic) Cap PO SCH (07:16)
[2021-01-07] MEDS: Ascorbic Acid 500 MG Tab PO SCH (07:16)
[2021-01-07] MEDS: Multivitamins with Iron/Calcium/Folic Acid/Minerals Tab PO SCH (07:16)
[2021-01-08] MEDS: Zinc Sulfate 220 MG (50mg elemental Zinc) Cap PO SCH (07:04)
[2021-01-08] MEDS: Cholecalciferol (Vitamin D3) 25 MCG Tab PO SCH (07:04)
[2021-01-08] MEDS: Multivitamins with Iron/Calcium/Folic Acid/Minerals Tab PO SCH (07:04)
[2021-01-08] MEDS: Acetaminophen 325 MG Tab PO SCH ×2 (07:04→19:40)
[2021-01-08] MEDS: OXYBUTYNIN 10 MG PO SCH (07:04)
[2021-01-08] MEDS: BACLOFEN 10 MG PO SCH ×3 (07:04→19:39)
[2021-01-08] MEDS: Cyanocobalamin (Vitamin B12) 250 MCG Tab PO SCH (07:05)
[2021-01-08] MEDS: Ascorbic Acid 500 MG Tab PO SCH (07:05)
[2021-01-08] MEDS: Lactobacillus Rhamnosus GG (Probiotic) Cap PO SCH (07:05)
[2021-01-09] MEDS: BACLOFEN 10 MG PO SCH ×3 (07:53→20:17)
[2021-01-09] MEDS: OXYBUTYNIN 10 MG PO SCH (07:54)
[2021-01-09] MEDS: Cholecalciferol (Vitamin D3) 25 MCG Tab PO SCH (07:54)
[2021-01-09] MEDS: Acetaminophen 325 MG Tab PO SCH ×2 (07:55→20:18)
[2021-01-09] MEDS: Zinc Sulfate 220 MG (50mg elemental Zinc) Cap PO SCH (07:55)
[2021-01-09] MEDS: Ascorbic Acid 500 MG Tab PO SCH (07:55)
[2021-01-09] MEDS: Lactobacillus Rhamnosus GG (Probiotic) Cap PO SCH (07:55)
[2021-01-09] MEDS: Cyanocobalamin (Vitamin B12) 250 MCG Tab PO SCH (07:57)
[2021-01-09] MEDS: Multivitamins with Iron/Calcium/Folic Acid/Minerals Tab PO SCH (07:58)
[2021-01-10] MEDS: OXYBUTYNIN 10 MG PO SCH (08:33)
[2021-01-10] MEDS: BACLOFEN 10 MG PO SCH ×3 (08:33→20:31)
[2021-01-10] MEDS: Multivitamins with Iron/Calcium/Folic Acid/Minerals Tab PO SCH (08:34)
[2021-01-10] MEDS: Cyanocobalamin (Vitamin B12) 250 MCG Tab PO SCH (08:35)
[2021-01-10] MEDS: Ascorbic Acid 500 MG Tab PO SCH (08:35)
[2021-01-10] MEDS: Lactobacillus Rhamnosus GG (Probiotic) Cap PO SCH (08:35)
[2021-01-10] MEDS: Acetaminophen 325 MG Tab PO SCH ×2 (08:36→20:30)
[2021-01-10] MEDS: Cholecalciferol (Vitamin D3) 25 MCG Tab PO SCH (08:36)
[2021-01-10] MEDS: Zinc Sulfate 220 MG (50mg elemental Zinc) Cap PO SCH (08:36)
[2021-01-11] MEDS: BACLOFEN 10 MG PO SCH ×3 (07:39→19:35)
[2021-01-11] MEDS: OXYBUTYNIN 10 MG PO SCH (07:40)
[2021-01-11] MEDS: Cholecalciferol (Vitamin D3) 25 MCG Tab PO SCH (07:40)
[2021-01-11] MEDS: Ascorbic Acid 500 MG Tab PO SCH (07:41)
[2021-01-11] MEDS: Lactobacillus Rhamnosus GG (Probiotic) Cap PO SCH (07:41)
[2021-01-11] MEDS: Zinc Sulfate 220 MG (50mg elemental Zinc) Cap PO SCH (07:41)
[2021-01-11] MEDS: Cyanocobalamin (Vitamin B12) 250 MCG Tab PO SCH (07:41)
[2021-01-11] MEDS: Acetaminophen 325 MG Tab PO SCH ×2 (07:41→19:35)
[2021-01-11] MEDS: Multivitamins with Iron/Calcium/Folic Acid/Minerals Tab PO SCH (07:41)
[2021-01-12] MEDS: BACLOFEN 10 MG PO SCH ×3 (07:23→19:53)
[2021-01-12] MEDS: OXYBUTYNIN 10 MG PO SCH (07:23)
[2021-01-12] MEDS: Zinc Sulfate 220 MG (50mg elemental Zinc) Cap PO SCH (07:24)
[2021-01-12] MEDS: Cyanocobalamin (Vitamin B12) 250 MCG Tab PO SCH (07:24)
[2021-01-12] MEDS: Multivitamins with Iron/Calcium/Folic Acid/Minerals Tab PO SCH (07:24)
[2021-01-12] MEDS: Acetaminophen 325 MG Tab PO SCH ×2 (07:24→19:52)
[2021-01-12] MEDS: Cholecalciferol (Vitamin D3) 25 MCG Tab PO SCH (07:24)
[2021-01-12] MEDS: Ascorbic Acid 500 MG Tab PO SCH (07:25)
[2021-01-12] MEDS: Lactobacillus Rhamnosus GG (Probiotic) Cap PO SCH (07:25)
[2021-01-13] MEDS: Zinc Sulfate 220 MG (50mg elemental Zinc) Cap PO SCH (07:24)
[2021-01-13] MEDS: Cholecalciferol (Vitamin D3) 25 MCG Tab PO SCH (07:24)
[2021-01-13] MEDS: Lactobacillus Rhamnosus GG (Probiotic) Cap PO SCH (07:24)
[2021-01-13] MEDS: Cyanocobalamin (Vitamin B12) 250 MCG Tab PO SCH (07:24)
[2021-01-13] MEDS: Multivitamins with Iron/Calcium/Folic Acid/Minerals Tab PO SCH (07:24)
[2021-01-13] MEDS: OXYBUTYNIN 10 MG PO SCH (07:25)
[2021-01-13] MEDS: Ascorbic Acid 500 MG Tab PO SCH (07:25)
[2021-01-13] MEDS: Acetaminophen 325 MG Tab PO SCH ×2 (07:25→19:59)
[2021-01-13] MEDS: BACLOFEN 10 MG PO SCH ×3 (07:26→20:00)
[2021-01-14] MEDS: Cholecalciferol (Vitamin D3) 25 MCG Tab PO SCH (09:00)
[2021-01-14] MEDS: Lactobacillus Rhamnosus GG (Probiotic) Cap PO SCH (09:01)
[2021-01-14] MEDS: Multivitamins with Iron/Calcium/Folic Acid/Minerals Tab PO SCH (09:01)
[2021-01-14] MEDS: Zinc Sulfate 220 MG (50mg elemental Zinc) Cap PO SCH (09:01)
[2021-01-14] MEDS: Ascorbic Acid 500 MG Tab PO SCH (09:01)
[2021-01-14] MEDS: Acetaminophen 325 MG Tab PO SCH ×2 (09:01→19:36)
[2021-01-14] MEDS: Cyanocobalamin (Vitamin B12) 250 MCG Tab PO SCH (09:01)
[2021-01-14] MEDS: BACLOFEN 10 MG PO SCH ×3 (09:02→19:37)
[2021-01-14] MEDS: OXYBUTYNIN 10 MG PO SCH (09:02)
[2021-01-15] MEDS: BACLOFEN 10 MG PO SCH ×3 (07:55→19:45)
[2021-01-15] MEDS: Cyanocobalamin (Vitamin B12) 250 MCG Tab PO SCH (07:55)
[2021-01-15] MEDS: OXYBUTYNIN 10 MG PO SCH (07:55)
[2021-01-15] MEDS: Cholecalciferol (Vitamin D3) 25 MCG Tab PO SCH (07:55)
[2021-01-15] MEDS: Acetaminophen 325 MG Tab PO SCH ×2 (07:56→19:45)
[2021-01-15] MEDS: Lactobacillus Rhamnosus GG (Probiotic) Cap PO SCH (07:56)
[2021-01-15] MEDS: Ascorbic Acid 500 MG Tab PO SCH (07:56)
[2021-01-15] MEDS: Zinc Sulfate 220 MG (50mg elemental Zinc) Cap PO SCH (07:56)
[2021-01-15] MEDS: Multivitamins with Iron/Calcium/Folic Acid/Minerals Tab PO SCH (07:56)
[2021-01-16] MEDS: Cyanocobalamin (Vitamin B12) 250 MCG Tab PO SCH (08:29)
[2021-01-16] MEDS: Zinc Sulfate 220 MG (50mg elemental Zinc) Cap PO SCH (08:30)
[2021-01-16] MEDS: Ascorbic Acid 500 MG Tab PO SCH (08:30)
[2021-01-16] MEDS: Lactobacillus Rhamnosus GG (Probiotic) Cap PO SCH (08:30)
[2021-01-16] MEDS: Multivitamins with Iron/Calcium/Folic Acid/Minerals Tab PO SCH (08:30)
[2021-01-16] MEDS: Cholecalciferol (Vitamin D3) 25 MCG Tab PO SCH (08:33)
[2021-01-16] MEDS: Acetaminophen 325 MG Tab PO SCH ×2 (08:35→19:37)
[2021-01-16] MEDS: OXYBUTYNIN 10 MG PO SCH (08:36)
[2021-01-16] MEDS: BACLOFEN 10 MG PO SCH ×3 (08:37→19:38)
[2021-01-17] MEDS: Zinc Sulfate 220 MG (50mg elemental Zinc) Cap PO SCH (07:42)
[2021-01-17] MEDS: Ascorbic Acid 500 MG Tab PO SCH (07:42)
[2021-01-17] MEDS: Lactobacillus Rhamnosus GG (Probiotic) Cap PO SCH (07:42)
[2021-01-17] MEDS: Cholecalciferol (Vitamin D3) 25 MCG Tab PO SCH (07:42)
[2021-01-17] MEDS: BACLOFEN 10 MG PO SCH ×3 (07:42→19:56)
[2021-01-17] MEDS: OXYBUTYNIN 10 MG PO SCH (07:42)
[2021-01-17] MEDS: Cyanocobalamin (Vitamin B12) 250 MCG Tab PO SCH (07:42)
[2021-01-17] MEDS: Multivitamins with Iron/Calcium/Folic Acid/Minerals Tab PO SCH (07:42)
[2021-01-17] MEDS: Acetaminophen 325 MG Tab PO SCH ×2 (07:42→19:56)
[2021-01-18] MEDS: Multivitamins with Iron/Calcium/Folic Acid/Minerals Tab PO SCH (08:40)
[2021-01-18] MEDS: Cholecalciferol (Vitamin D3) 25 MCG Tab PO SCH (08:40)
[2021-01-18] MEDS: Zinc Sulfate 220 MG (50mg elemental Zinc) Cap PO SCH (08:40)
[2021-01-18] MEDS: OXYBUTYNIN 10 MG PO SCH (08:40)
[2021-01-18] MEDS: Acetaminophen 325 MG Tab PO SCH ×2 (08:40→19:23)
[2021-01-18] MEDS: Lactobacillus Rhamnosus GG (Probiotic) Cap PO SCH (08:40)
[2021-01-18] MEDS: Ascorbic Acid 500 MG Tab PO SCH (08:40)
[2021-01-18] MEDS: BACLOFEN 10 MG PO SCH ×3 (08:40→19:22)
[2021-01-18] MEDS: Cyanocobalamin (Vitamin B12) 250 MCG Tab PO SCH (08:40)
[2021-01-19] MEDS: Acetaminophen 325 MG Tab PO SCH ×2 (08:18→19:32)
[2021-01-19] MEDS: OXYBUTYNIN 10 MG PO SCH (08:18)
[2021-01-19] MEDS: BACLOFEN 10 MG PO SCH ×3 (08:18→19:33)
[2021-01-19] MEDS: Cholecalciferol (Vitamin D3) 25 MCG Tab PO SCH (08:19)
[2021-01-19] MEDS: Zinc Sulfate 220 MG (50mg elemental Zinc) Cap PO SCH (08:20)
[2021-01-19] MEDS: Ascorbic Acid 500 MG Tab PO SCH (08:20)
[2021-01-19] MEDS: Multivitamins with Iron/Calcium/Folic Acid/Minerals Tab PO SCH (08:20)
[2021-01-19] MEDS: Cyanocobalamin (Vitamin B12) 250 MCG Tab PO SCH (08:20)
[2021-01-19] MEDS: Lactobacillus Rhamnosus GG (Probiotic) Cap PO SCH (08:20)
[2021-01-20] MEDS: Acetaminophen 325 MG Tab PO SCH ×2 (09:16→19:42)
[2021-01-20] MEDS: Lactobacillus Rhamnosus GG (Probiotic) Cap PO SCH (09:16)
[2021-01-20] MEDS: Multivitamins with Iron/Calcium/Folic Acid/Minerals Tab PO SCH (09:16)
[2021-01-20] MEDS: Cyanocobalamin (Vitamin B12) 250 MCG Tab PO SCH (09:16)
[2021-01-20] MEDS: Zinc Sulfate 220 MG (50mg elemental Zinc) Cap PO SCH (09:16)
[2021-01-20] MEDS: Ascorbic Acid 500 MG Tab PO SCH (09:16)
[2021-01-20] MEDS: Cholecalciferol (Vitamin D3) 25 MCG Tab PO SCH (09:16)
[2021-01-20] MEDS: BACLOFEN 10 MG PO SCH ×3 (09:17→19:42)
[2021-01-20] MEDS: OXYBUTYNIN 10 MG PO SCH (09:17)
[2021-01-21] MEDS: OXYBUTYNIN 10 MG PO SCH (07:32)
[2021-01-21] MEDS: BACLOFEN 10 MG PO SCH ×3 (07:32→20:43)
[2021-01-21] MEDS: Zinc Sulfate 220 MG (50mg elemental Zinc) Cap PO SCH (07:33)
[2021-01-21] MEDS: Lactobacillus Rhamnosus GG (Probiotic) Cap PO SCH (07:33)
[2021-01-21] MEDS: Acetaminophen 325 MG Tab PO SCH ×2 (07:33→20:43)
[2021-01-21] MEDS: Cyanocobalamin (Vitamin B12) 250 MCG Tab PO SCH (07:33)
[2021-01-21] MEDS: Ascorbic Acid 500 MG Tab PO SCH (07:34)
[2021-01-21] MEDS: Cholecalciferol (Vitamin D3) 25 MCG Tab PO SCH (07:34)
[2021-01-21] MEDS: Multivitamins with Iron/Calcium/Folic Acid/Minerals Tab PO SCH (07:34)
[2021-01-22] MEDS: OXYBUTYNIN 10 MG PO SCH (07:19)
[2021-01-22] MEDS: Cholecalciferol (Vitamin D3) 25 MCG Tab PO SCH (07:19)
[2021-01-22] MEDS: Lactobacillus Rhamnosus GG (Probiotic) Cap PO SCH (07:19)
[2021-01-22] MEDS: BACLOFEN 10 MG PO SCH ×3 (07:19→20:34)
[2021-01-22] MEDS: Acetaminophen 325 MG Tab PO SCH ×2 (07:19→20:33)
[2021-01-22] MEDS: Ascorbic Acid 500 MG Tab PO SCH (07:20)
[2021-01-22] MEDS: Zinc Sulfate 220 MG (50mg elemental Zinc) Cap PO SCH (07:20)
[2021-01-22] MEDS: Multivitamins with Iron/Calcium/Folic Acid/Minerals Tab PO SCH (07:20)
[2021-01-22] MEDS: Cyanocobalamin (Vitamin B12) 250 MCG Tab PO SCH (07:20)
[2021-01-23] MEDS: Cholecalciferol (Vitamin D3) 25 MCG Tab PO SCH (07:34)
[2021-01-23] MEDS: OXYBUTYNIN 10 MG PO SCH (07:34)
[2021-01-23] MEDS: BACLOFEN 10 MG PO SCH ×3 (07:34→20:57)
[2021-01-23] MEDS: Cyanocobalamin (Vitamin B12) 250 MCG Tab PO SCH (07:34)
[2021-01-23] MEDS: Lactobacillus Rhamnosus GG (Probiotic) Cap PO SCH (07:34)
[2021-01-23] MEDS: Acetaminophen 325 MG Tab PO SCH ×2 (07:34→20:57)
[2021-01-23] MEDS: Ascorbic Acid 500 MG Tab PO SCH (07:35)
[2021-01-23] MEDS: Multivitamins with Iron/Calcium/Folic Acid/Minerals Tab PO SCH (07:35)
[2021-01-23] MEDS: Zinc Sulfate 220 MG (50mg elemental Zinc) Cap PO SCH (07:35)
[2021-01-24] MEDS: Zinc Sulfate 220 MG (50mg elemental Zinc) Cap PO SCH (07:47)
[2021-01-24] MEDS: OXYBUTYNIN 10 MG PO SCH (07:47)
[2021-01-24] MEDS: BACLOFEN 10 MG PO SCH ×3 (07:47→20:09)
[2021-01-24] MEDS: Acetaminophen 325 MG Tab PO SCH ×2 (07:48→20:09)
[2021-01-24] MEDS: Ascorbic Acid 500 MG Tab PO SCH (07:48)
[2021-01-24] MEDS: Multivitamins with Iron/Calcium/Folic Acid/Minerals Tab PO SCH (07:48)
[2021-01-24] MEDS: Lactobacillus Rhamnosus GG (Probiotic) Cap PO SCH (07:48)
[2021-01-24] MEDS: Cholecalciferol (Vitamin D3) 25 MCG Tab PO SCH (07:48)
[2021-01-24] MEDS: Cyanocobalamin (Vitamin B12) 250 MCG Tab PO SCH (07:48)
[2021-01-25] MEDS: BACLOFEN 10 MG PO SCH ×3 (08:03→20:35)
[2021-01-25] MEDS: OXYBUTYNIN 10 MG PO SCH (08:03)
[2021-01-25] MEDS: Ascorbic Acid 500 MG Tab PO SCH (08:03)
[2021-01-25] MEDS: Zinc Sulfate 220 MG (50mg elemental Zinc) Cap PO SCH (08:03)
[2021-01-25] MEDS: Cyanocobalamin (Vitamin B12) 250 MCG Tab PO SCH (08:03)
[2021-01-25] MEDS: Cholecalciferol (Vitamin D3) 25 MCG Tab PO SCH (08:03)
[2021-01-25] MEDS: Multivitamins with Iron/Calcium/Folic Acid/Minerals Tab PO SCH (08:03)
[2021-01-25] MEDS: Lactobacillus Rhamnosus GG (Probiotic) Cap PO SCH (08:04)
[2021-01-25] MEDS: Acetaminophen 325 MG Tab PO SCH ×2 (08:04→20:34)
[2021-01-26] MEDS: OXYBUTYNIN 10 MG PO SCH (08:36)
[2021-01-26] MEDS: Lactobacillus Rhamnosus GG (Probiotic) Cap PO SCH (08:36)
[2021-01-26] MEDS: BACLOFEN 10 MG PO SCH ×3 (08:36→20:11)
[2021-01-26] MEDS: Acetaminophen 325 MG Tab PO SCH ×2 (08:37→20:11)
[2021-01-26] MEDS: Ascorbic Acid 500 MG Tab PO SCH (08:37)
[2021-01-26] MEDS: Zinc Sulfate 220 MG (50mg elemental Zinc) Cap PO SCH (08:37)
[2021-01-26] MEDS: Cyanocobalamin (Vitamin B12) 250 MCG Tab PO SCH (08:37)
[2021-01-26] MEDS: Multivitamins with Iron/Calcium/Folic Acid/Minerals Tab PO SCH (08:37)
[2021-01-26] MEDS: Cholecalciferol (Vitamin D3) 25 MCG Tab PO SCH (08:37)
[2021-01-27] MEDS: Zinc Sulfate 220 MG (50mg elemental Zinc) Cap PO SCH (09:38)
[2021-01-27] MEDS: Cholecalciferol (Vitamin D3) 25 MCG Tab PO SCH (09:38)
[2021-01-27] MEDS: Multivitamins with Iron/Calcium/Folic Acid/Minerals Tab PO SCH (09:38)
[2021-01-27] MEDS: Cyanocobalamin (Vitamin B12) 250 MCG Tab PO SCH (09:39)
[2021-01-27] MEDS: Lactobacillus Rhamnosus GG (Probiotic) Cap PO SCH (09:39)
[2021-01-27] MEDS: Ascorbic Acid 500 MG Tab PO SCH (09:39)
[2021-01-27] MEDS: Acetaminophen 325 MG Tab PO SCH ×2 (09:39→19:41)
[2021-01-27] MEDS: OXYBUTYNIN 10 MG PO SCH (09:40)
[2021-01-27] MEDS: BACLOFEN 10 MG PO SCH ×3 (09:40→19:40)
[2021-01-28] MEDS: OXYBUTYNIN 10 MG PO SCH (09:57)
[2021-01-28] MEDS: BACLOFEN 10 MG PO SCH ×3 (09:57→20:56)
[2021-01-28] MEDS: Cyanocobalamin (Vitamin B12) 250 MCG Tab PO SCH (09:59)
[2021-01-28] MEDS: Zinc Sulfate 220 MG (50mg elemental Zinc) Cap PO SCH (10:00)
[2021-01-28] MEDS: Acetaminophen 325 MG Tab PO SCH ×2 (10:00→20:55)
[2021-01-28] MEDS: Cholecalciferol (Vitamin D3) 25 MCG Tab PO SCH (10:00)
[2021-01-28] MEDS: Ascorbic Acid 500 MG Tab PO SCH (10:00)
[2021-01-28] MEDS: Multivitamins with Iron/Calcium/Folic Acid/Minerals Tab PO SCH (10:01)
[2021-01-28] MEDS: Lactobacillus Rhamnosus GG (Probiotic) Cap PO SCH (10:01)
[2021-01-29] MEDS: BACLOFEN 10 MG PO SCH ×3 (07:37→20:05)
[2021-01-29] MEDS: OXYBUTYNIN 10 MG PO SCH (07:37)
[2021-01-29] MEDS: Cholecalciferol (Vitamin D3) 25 MCG Tab PO SCH (07:38)
[2021-01-29] MEDS: Ascorbic Acid 500 MG Tab PO SCH (07:38)
[2021-01-29] MEDS: Lactobacillus Rhamnosus GG (Probiotic) Cap PO SCH (07:38)
[2021-01-29] MEDS: Cyanocobalamin (Vitamin B12) 250 MCG Tab PO SCH (07:38)
[2021-01-29] MEDS: Multivitamins with Iron/Calcium/Folic Acid/Minerals Tab PO SCH (07:38)
[2021-01-29] MEDS: Zinc Sulfate 220 MG (50mg elemental Zinc) Cap PO SCH (07:38)
[2021-01-29] MEDS: Acetaminophen 325 MG Tab PO SCH ×2 (07:38→19:33)
[2021-01-30] MEDS: Multivitamins with Iron/Calcium/Folic Acid/Minerals Tab PO SCH (07:56)
[2021-01-30] MEDS: OXYBUTYNIN 10 MG PO SCH (07:56)
[2021-01-30] MEDS: BACLOFEN 10 MG PO SCH ×3 (07:56→19:38)
[2021-01-30] MEDS: Zinc Sulfate 220 MG (50mg elemental Zinc) Cap PO SCH (07:57)
[2021-01-30] MEDS: Acetaminophen 325 MG Tab PO SCH ×2 (07:57→19:39)
[2021-01-30] MEDS: Lactobacillus Rhamnosus GG (Probiotic) Cap PO SCH (07:57)
[2021-01-30] MEDS: Cyanocobalamin (Vitamin B12) 250 MCG Tab PO SCH (07:57)
[2021-01-30] MEDS: Ascorbic Acid 500 MG Tab PO SCH (07:57)
[2021-01-30] MEDS: Cholecalciferol (Vitamin D3) 25 MCG Tab PO SCH (07:57)
[2021-01-31] MEDS: Cholecalciferol (Vitamin D3) 25 MCG Tab PO SCH (07:50)
[2021-01-31] MEDS: Zinc Sulfate 220 MG (50mg elemental Zinc) Cap PO SCH (07:50)
[2021-01-31] MEDS: Ascorbic Acid 500 MG Tab PO SCH (07:51)
[2021-01-31] MEDS: Multivitamins with Iron/Calcium/Folic Acid/Minerals Tab PO SCH (07:51)
[2021-01-31] MEDS: Cyanocobalamin (Vitamin B12) 250 MCG Tab PO SCH (07:51)
[2021-01-31] MEDS: Acetaminophen 325 MG Tab PO SCH ×2 (07:51→19:46)
[2021-01-31] MEDS: OXYBUTYNIN 10 MG PO SCH (07:52)
[2021-01-31] MEDS: Lactobacillus Rhamnosus GG (Probiotic) Cap PO SCH (07:52)
[2021-01-31] MEDS: BACLOFEN 10 MG PO SCH ×3 (07:52→19:44)
[2021-02-01] MEDS: Cholecalciferol (Vitamin D3) 25 MCG Tab PO SCH (09:21)
[2021-02-01] MEDS: Ascorbic Acid 500 MG Tab PO SCH (09:21)
[2021-02-01] MEDS: Lactobacillus Rhamnosus GG (Probiotic) Cap PO SCH (09:21)
[2021-02-01] MEDS: Cyanocobalamin (Vitamin B12) 250 MCG Tab PO SCH (09:21)
[2021-02-01] MEDS: Multivitamins with Iron/Calcium/Folic Acid/Minerals Tab PO SCH (09:21)
[2021-02-01] MEDS: Zinc Sulfate 220 MG (50mg elemental Zinc) Cap PO SCH (09:21)
[2021-02-01] MEDS: Acetaminophen 325 MG Tab PO SCH ×2 (09:21→20:02)
[2021-02-01] MEDS: OXYBUTYNIN 10 MG PO SCH (09:22)
[2021-02-01] MEDS: BACLOFEN 10 MG PO SCH ×3 (09:22→20:02)
[2021-02-02] MEDS: BACLOFEN 10 MG PO SCH ×3 (07:45→20:09)
[2021-02-02] MEDS: OXYBUTYNIN 10 MG PO SCH (07:46)
[2021-02-02] MEDS: Acetaminophen 325 MG Tab PO SCH ×2 (07:46→20:09)
[2021-02-02] MEDS: Multivitamins with Iron/Calcium/Folic Acid/Minerals Tab PO SCH (07:46)
[2021-02-02] MEDS: Cholecalciferol (Vitamin D3) 25 MCG Tab PO SCH (07:46)
[2021-02-02] MEDS: Zinc Sulfate 220 MG (50mg elemental Zinc) Cap PO SCH (07:46)
[2021-02-02] MEDS: Cyanocobalamin (Vitamin B12) 250 MCG Tab PO SCH (07:46)
[2021-02-02] MEDS: Ascorbic Acid 500 MG Tab PO SCH (07:46)
[2021-02-02] MEDS: Lactobacillus Rhamnosus GG (Probiotic) Cap PO SCH (07:46)
[2021-02-03] MEDS: BACLOFEN 10 MG PO SCH ×3 (07:27→19:44)
[2021-02-03] MEDS: OXYBUTYNIN 10 MG PO SCH (07:27)
[2021-02-03] MEDS: Ascorbic Acid 500 MG Tab PO SCH (07:28)
[2021-02-03] MEDS: Lactobacillus Rhamnosus GG (Probiotic) Cap PO SCH (07:28)
[2021-02-03] MEDS: Acetaminophen 325 MG Tab PO SCH ×2 (07:28→19:44)
[2021-02-03] MEDS: Multivitamins with Iron/Calcium/Folic Acid/Minerals Tab PO SCH (07:28)
[2021-02-03] MEDS: Cyanocobalamin (Vitamin B12) 250 MCG Tab PO SCH (07:28)
[2021-02-03] MEDS: Zinc Sulfate 220 MG (50mg elemental Zinc) Cap PO SCH (07:28)
[2021-02-03] MEDS: Cholecalciferol (Vitamin D3) 25 MCG Tab PO SCH (07:29)
[2021-02-04] MEDS: OXYBUTYNIN 10 MG PO SCH (09:23)
[2021-02-04] MEDS: BACLOFEN 10 MG PO SCH ×3 (09:23→19:21)
[2021-02-04] MEDS: Zinc Sulfate 220 MG (50mg elemental Zinc) Cap PO SCH (09:24)
[2021-02-04] MEDS: Ascorbic Acid 500 MG Tab PO SCH (09:24)
[2021-02-04] MEDS: Lactobacillus Rhamnosus GG (Probiotic) Cap PO SCH (09:24)
[2021-02-04] MEDS: Cholecalciferol (Vitamin D3) 25 MCG Tab PO SCH (09:25)
[2021-02-04] MEDS: Multivitamins with Iron/Calcium/Folic Acid/Minerals Tab PO SCH (09:25)
[2021-02-04] MEDS: Acetaminophen 325 MG Tab PO SCH ×2 (09:25→19:21)
[2021-02-04] MEDS: Cyanocobalamin (Vitamin B12) 250 MCG Tab PO SCH (09:26)
[2021-02-05] MEDS: BACLOFEN 10 MG PO SCH ×4 (05:45→19:18)
[2021-02-05] MEDS: OXYBUTYNIN 10 MG PO SCH ×2 (05:45→11:19)
[2021-02-05] MEDS: Acetaminophen 325 MG Tab PO SCH ×3 (05:49→19:19)
[2021-02-05] MEDS: Lactobacillus Rhamnosus GG (Probiotic) Cap PO SCH ×2 (07:47→17:36)
[2021-02-05] MEDS: Multivitamins with Iron/Calcium/Folic Acid/Minerals Tab PO SCH ×2 (07:47→17:34)
[2021-02-05] MEDS: Cyanocobalamin (Vitamin B12) 250 MCG Tab PO SCH (17:31)
[2021-02-05] MEDS: Cholecalciferol (Vitamin D3) 25 MCG Tab PO SCH (17:31)
[2021-02-05] MEDS: Zinc Sulfate 220 MG (50mg elemental Zinc) Cap PO SCH (17:33)
[2021-02-05] MEDS: Ascorbic Acid 500 MG Tab PO SCH (17:33)
[2021-02-06] MEDS: OXYBUTYNIN 10 MG PO SCH (07:48)
[2021-02-06] MEDS: BACLOFEN 10 MG PO SCH ×3 (07:48→19:52)
[2021-02-06] MEDS: Multivitamins with Iron/Calcium/Folic Acid/Minerals Tab PO SCH (07:49)
[2021-02-06] MEDS: Acetaminophen 325 MG Tab PO SCH ×2 (07:49→19:52)
[2021-02-06] MEDS: Lactobacillus Rhamnosus GG (Probiotic) Cap PO SCH (07:50)
[2021-02-06] MEDS: Zinc Sulfate 220 MG (50mg elemental Zinc) Cap PO SCH (07:50)
[2021-02-06] MEDS: Ascorbic Acid 500 MG Tab PO SCH (07:50)
[2021-02-06] MEDS: Cholecalciferol (Vitamin D3) 25 MCG Tab PO SCH (07:50)
[2021-02-06] MEDS: Cyanocobalamin (Vitamin B12) 250 MCG Tab PO SCH (07:51)
[2021-02-07] MEDS: BACLOFEN 10 MG PO SCH ×3 (07:19→19:56)
[2021-02-07] MEDS: OXYBUTYNIN 10 MG PO SCH (07:19)
[2021-02-07] MEDS: Cyanocobalamin (Vitamin B12) 250 MCG Tab PO SCH (07:20)
[2021-02-07] MEDS: Cholecalciferol (Vitamin D3) 25 MCG Tab PO SCH (07:20)
[2021-02-07] MEDS: Acetaminophen 325 MG Tab PO SCH ×2 (07:20→19:55)
[2021-02-07] MEDS: Ascorbic Acid 500 MG Tab PO SCH (07:21)
[2021-02-07] MEDS: Multivitamins with Iron/Calcium/Folic Acid/Minerals Tab PO SCH (07:21)
[2021-02-07] MEDS: Zinc Sulfate 220 MG (50mg elemental Zinc) Cap PO SCH (07:21)
[2021-02-07] MEDS: Lactobacillus Rhamnosus GG (Probiotic) Cap PO SCH (07:21)
[2021-02-08] MEDS: Acetaminophen 325 MG Tab PO SCH ×2 (08:41→20:11)
[2021-02-08] MEDS: Zinc Sulfate 220 MG (50mg elemental Zinc) Cap PO SCH (08:41)
[2021-02-08] MEDS: BACLOFEN 10 MG PO SCH ×3 (08:41→20:12)
[2021-02-08] MEDS: Cyanocobalamin (Vitamin B12) 250 MCG Tab PO SCH (08:42)
[2021-02-08] MEDS: Ascorbic Acid 500 MG Tab PO SCH (08:42)
[2021-02-08] MEDS: Lactobacillus Rhamnosus GG (Probiotic) Cap PO SCH (08:42)
[2021-02-08] MEDS: Multivitamins with Iron/Calcium/Folic Acid/Minerals Tab PO SCH (08:42)
[2021-02-08] MEDS: Cholecalciferol (Vitamin D3) 25 MCG Tab PO SCH (08:42)
[2021-02-08] MEDS: OXYBUTYNIN 10 MG PO SCH (08:44)
[2021-02-09] MEDS: Acetaminophen 325 MG Tab PO SCH ×2 (08:30→19:18)
[2021-02-09] MEDS: Cholecalciferol (Vitamin D3) 25 MCG Tab PO SCH (08:31)
[2021-02-09] MEDS: Ascorbic Acid 500 MG Tab PO SCH (08:31)
[2021-02-09] MEDS: Zinc Sulfate 220 MG (50mg elemental Zinc) Cap PO SCH (08:32)
[2021-02-09] MEDS: Cyanocobalamin (Vitamin B12) 250 MCG Tab PO SCH (08:32)
[2021-02-09] MEDS: Lactobacillus Rhamnosus GG (Probiotic) Cap PO SCH (08:32)
[2021-02-09] MEDS: Multivitamins with Iron/Calcium/Folic Acid/Minerals Tab PO SCH (08:32)
[2021-02-09] MEDS: BACLOFEN 10 MG PO SCH ×3 (08:34→19:18)
[2021-02-09] MEDS: OXYBUTYNIN 10 MG PO SCH (08:34)
[2021-02-10] MEDS: BACLOFEN 10 MG PO SCH ×3 (07:38→19:24)
[2021-02-10] MEDS: OXYBUTYNIN 10 MG PO SCH (07:38)
[2021-02-10] MEDS: Acetaminophen 325 MG Tab PO SCH ×2 (07:38→19:24)
[2021-02-10] MEDS: Zinc Sulfate 220 MG (50mg elemental Zinc) Cap PO SCH (07:39)
[2021-02-10] MEDS: Cyanocobalamin (Vitamin B12) 250 MCG Tab PO SCH (07:39)
[2021-02-10] MEDS: Ascorbic Acid 500 MG Tab PO SCH (07:39)
[2021-02-10] MEDS: Lactobacillus Rhamnosus GG (Probiotic) Cap PO SCH (07:39)
[2021-02-10] MEDS: Cholecalciferol (Vitamin D3) 25 MCG Tab PO SCH (07:39)
[2021-02-10] MEDS: Multivitamins with Iron/Calcium/Folic Acid/Minerals Tab PO SCH (07:39)
[2021-02-11] MEDS: OXYBUTYNIN 10 MG PO SCH (07:35)
[2021-02-11] MEDS: BACLOFEN 10 MG PO SCH ×3 (07:35→20:09)
[2021-02-11] MEDS: Cyanocobalamin (Vitamin B12) 250 MCG Tab PO SCH (07:36)
[2021-02-11] MEDS: Zinc Sulfate 220 MG (50mg elemental Zinc) Cap PO SCH (07:36)
[2021-02-11] MEDS: Lactobacillus Rhamnosus GG (Probiotic) Cap PO SCH (07:36)
[2021-02-11] MEDS: Acetaminophen 325 MG Tab PO SCH ×2 (07:36→20:10)
[2021-02-11] MEDS: Multivitamins with Iron/Calcium/Folic Acid/Minerals Tab PO SCH (07:36)
[2021-02-11] MEDS: Cholecalciferol (Vitamin D3) 25 MCG Tab PO SCH (07:36)
[2021-02-11] MEDS: Ascorbic Acid 500 MG Tab PO SCH (07:37)
[2021-02-12] MEDS: BACLOFEN 10 MG PO SCH ×3 (07:49→19:42)
[2021-02-12] MEDS: OXYBUTYNIN 10 MG PO SCH (07:49)
[2021-02-12] MEDS: Cholecalciferol (Vitamin D3) 25 MCG Tab PO SCH (07:50)
[2021-02-12] MEDS: Cyanocobalamin (Vitamin B12) 250 MCG Tab PO SCH (07:50)
[2021-02-12] MEDS: Multivitamins with Iron/Calcium/Folic Acid/Minerals Tab PO SCH (07:50)
[2021-02-12] MEDS: Zinc Sulfate 220 MG (50mg elemental Zinc) Cap PO SCH (07:50)
[2021-02-12] MEDS: Lactobacillus Rhamnosus GG (Probiotic) Cap PO SCH (07:50)
[2021-02-12] MEDS: Ascorbic Acid 500 MG Tab PO SCH (07:50)
[2021-02-12] MEDS: Acetaminophen 325 MG Tab PO SCH ×2 (07:50→19:39)
[2021-02-13] MEDS: Zinc Sulfate 220 MG (50mg elemental Zinc) Cap PO SCH (07:15)
[2021-02-13] MEDS: OXYBUTYNIN 10 MG PO SCH (07:15)
[2021-02-13] MEDS: Multivitamins with Iron/Calcium/Folic Acid/Minerals Tab PO SCH (07:15)
[2021-02-13] MEDS: Cholecalciferol (Vitamin D3) 25 MCG Tab PO SCH (07:15)
[2021-02-13] MEDS: BACLOFEN 10 MG PO SCH ×3 (07:15→21:56)
[2021-02-13] MEDS: Lactobacillus Rhamnosus GG (Probiotic) Cap PO SCH (07:15)
[2021-02-13] MEDS: Cyanocobalamin (Vitamin B12) 250 MCG Tab PO SCH (07:16)
[2021-02-13] MEDS: Acetaminophen 325 MG Tab PO SCH ×2 (07:16→21:57)
[2021-02-13] MEDS: Ascorbic Acid 500 MG Tab PO SCH (07:16)
[2021-02-14] MEDS: Ascorbic Acid 500 MG Tab PO SCH (07:34)
[2021-02-14] MEDS: Lactobacillus Rhamnosus GG (Probiotic) Cap PO SCH (07:34)
[2021-02-14] MEDS: Cyanocobalamin (Vitamin B12) 250 MCG Tab PO SCH (07:34)
[2021-02-14] MEDS: BACLOFEN 10 MG PO SCH ×3 (07:34→20:01)
[2021-02-14] MEDS: OXYBUTYNIN 10 MG PO SCH (07:34)
[2021-02-14] MEDS: Multivitamins with Iron/Calcium/Folic Acid/Minerals Tab PO SCH (07:35)
[2021-02-14] MEDS: Zinc Sulfate 220 MG (50mg elemental Zinc) Cap PO SCH (07:35)
[2021-02-14] MEDS: Cholecalciferol (Vitamin D3) 25 MCG Tab PO SCH (07:35)
[2021-02-14] MEDS: Acetaminophen 325 MG Tab PO SCH ×2 (07:36→20:02)
[2021-02-15] MEDS: OXYBUTYNIN 10 MG PO SCH (08:04)
[2021-02-15] MEDS: BACLOFEN 10 MG PO SCH ×3 (08:04→19:26)
[2021-02-15] MEDS: Cholecalciferol (Vitamin D3) 25 MCG Tab PO SCH (08:05)
[2021-02-15] MEDS: Acetaminophen 325 MG Tab PO SCH ×2 (08:05→19:26)
[2021-02-15] MEDS: Cyanocobalamin (Vitamin B12) 250 MCG Tab PO SCH (08:05)
[2021-02-15] MEDS: Multivitamins with Iron/Calcium/Folic Acid/Minerals Tab PO SCH (08:05)
[2021-02-15] MEDS: Zinc Sulfate 220 MG (50mg elemental Zinc) Cap PO SCH (08:05)
[2021-02-15] MEDS: Ascorbic Acid 500 MG Tab PO SCH (08:07)
[2021-02-15] MEDS: Lactobacillus Rhamnosus GG (Probiotic) Cap PO SCH (08:10)
[2021-02-16] MEDS: Lactobacillus Rhamnosus GG (Probiotic) Cap PO SCH (09:23)
[2021-02-16] MEDS: Multivitamins with Iron/Calcium/Folic Acid/Minerals Tab PO SCH (09:23)
[2021-02-16] MEDS: Ascorbic Acid 500 MG Tab PO SCH (09:24)
[2021-02-16] MEDS: Zinc Sulfate 220 MG (50mg elemental Zinc) Cap PO SCH (09:24)
[2021-02-16] MEDS: OXYBUTYNIN 10 MG PO SCH (09:25)
[2021-02-16] MEDS: BACLOFEN 10 MG PO SCH ×3 (09:26→20:01)
[2021-02-16] MEDS: Acetaminophen 325 MG Tab PO SCH ×2 (09:26→20:01)
[2021-02-16] MEDS: Cyanocobalamin (Vitamin B12) 250 MCG Tab PO SCH (09:27)
[2021-02-16] MEDS: Cholecalciferol (Vitamin D3) 25 MCG Tab PO SCH (09:29)
[2021-02-17] MEDS: Cholecalciferol (Vitamin D3) 25 MCG Tab PO SCH (07:48)
[2021-02-17] MEDS: OXYBUTYNIN 10 MG PO SCH (07:48)
[2021-02-17] MEDS: Lactobacillus Rhamnosus GG (Probiotic) Cap PO SCH (07:48)
[2021-02-17] MEDS: Zinc Sulfate 220 MG (50mg elemental Zinc) Cap PO SCH (07:48)
[2021-02-17] MEDS: BACLOFEN 10 MG PO SCH ×3 (07:48→19:37)
[2021-02-17] MEDS: Acetaminophen 325 MG Tab PO SCH ×2 (07:49→19:38)
[2021-02-17] MEDS: Multivitamins with Iron/Calcium/Folic Acid/Minerals Tab PO SCH (07:49)
[2021-02-17] MEDS: Cyanocobalamin (Vitamin B12) 250 MCG Tab PO SCH (07:49)
[2021-02-17] MEDS: Ascorbic Acid 500 MG Tab PO SCH (07:49)
[2021-02-18] MEDS: BACLOFEN 10 MG PO SCH ×3 (07:41→19:40)
[2021-02-18] MEDS: OXYBUTYNIN 10 MG PO SCH (07:42)
[2021-02-18] MEDS: Cyanocobalamin (Vitamin B12) 250 MCG Tab PO SCH (07:43)
[2021-02-18] MEDS: Cholecalciferol (Vitamin D3) 25 MCG Tab PO SCH (07:43)
[2021-02-18] MEDS: Multivitamins with Iron/Calcium/Folic Acid/Minerals Tab PO SCH (07:43)
[2021-02-18] MEDS: Acetaminophen 325 MG Tab PO SCH ×2 (07:44→19:40)
[2021-02-18] MEDS: Lactobacillus Rhamnosus GG (Probiotic) Cap PO SCH (07:44)
[2021-02-18] MEDS: Zinc Sulfate 220 MG (50mg elemental Zinc) Cap PO SCH (07:44)
[2021-02-18] MEDS: Ascorbic Acid 500 MG Tab PO SCH (07:44)
[2021-02-19] MEDS: Cholecalciferol (Vitamin D3) 25 MCG Tab PO SCH (07:45)
[2021-02-19] MEDS: Lactobacillus Rhamnosus GG (Probiotic) Cap PO SCH (07:45)
[2021-02-19] MEDS: Zinc Sulfate 220 MG (50mg elemental Zinc) Cap PO SCH (07:46)
[2021-02-19] MEDS: Multivitamins with Iron/Calcium/Folic Acid/Minerals Tab PO SCH (07:46)
[2021-02-19] MEDS: Acetaminophen 325 MG Tab PO SCH ×2 (07:47→19:30)
[2021-02-19] MEDS: Cyanocobalamin (Vitamin B12) 250 MCG Tab PO SCH (07:47)
[2021-02-19] MEDS: Ascorbic Acid 500 MG Tab PO SCH (07:47)
[2021-02-19] MEDS: BACLOFEN 10 MG PO SCH ×3 (07:48→19:29)
[2021-02-19] MEDS: OXYBUTYNIN 10 MG PO SCH (07:49)
[2021-02-20] MEDS: Cholecalciferol (Vitamin D3) 25 MCG Tab PO SCH (07:28)
[2021-02-20] MEDS: Zinc Sulfate 220 MG (50mg elemental Zinc) Cap PO SCH (07:28)
[2021-02-20] MEDS: Lactobacillus Rhamnosus GG (Probiotic) Cap PO SCH (07:28)
[2021-02-20] MEDS: Acetaminophen 325 MG Tab PO SCH ×2 (07:29→20:14)
[2021-02-20] MEDS: Multivitamins with Iron/Calcium/Folic Acid/Minerals Tab PO SCH (07:29)
[2021-02-20] MEDS: Ascorbic Acid 500 MG Tab PO SCH (07:29)
[2021-02-20] MEDS: Cyanocobalamin (Vitamin B12) 250 MCG Tab PO SCH (07:29)
[2021-02-20] MEDS: OXYBUTYNIN 10 MG PO SCH (07:30)
[2021-02-20] MEDS: BACLOFEN 10 MG PO SCH ×3 (07:30→20:14)
[2021-02-21] MEDS: Lactobacillus Rhamnosus GG (Probiotic) Cap PO SCH (07:41)
[2021-02-21] MEDS: Cholecalciferol (Vitamin D3) 25 MCG Tab PO SCH (07:41)
[2021-02-21] MEDS: Ascorbic Acid 500 MG Tab PO SCH (07:42)
[2021-02-21] MEDS: Cyanocobalamin (Vitamin B12) 250 MCG Tab PO SCH (07:42)
[2021-02-21] MEDS: Multivitamins with Iron/Calcium/Folic Acid/Minerals Tab PO SCH (07:42)
[2021-02-21] MEDS: Zinc Sulfate 220 MG (50mg elemental Zinc) Cap PO SCH (07:42)
[2021-02-21] MEDS: Acetaminophen 325 MG Tab PO SCH ×2 (07:43→19:47)
[2021-02-21] MEDS: BACLOFEN 10 MG PO SCH ×3 (07:44→19:47)
[2021-02-21] MEDS: OXYBUTYNIN 10 MG PO SCH (07:44)
[2021-02-22] MEDS: BACLOFEN 10 MG PO SCH ×3 (08:09→20:17)
[2021-02-22] MEDS: OXYBUTYNIN 10 MG PO SCH (08:09)
[2021-02-22] MEDS: Cholecalciferol (Vitamin D3) 25 MCG Tab PO SCH (08:13)
[2021-02-22] MEDS: Acetaminophen 325 MG Tab PO SCH ×2 (08:13→20:17)
[2021-02-22] MEDS: Multivitamins with Iron/Calcium/Folic Acid/Minerals Tab PO SCH (08:14)
[2021-02-22] MEDS: Ascorbic Acid 500 MG Tab PO SCH (08:14)
[2021-02-22] MEDS: Cyanocobalamin (Vitamin B12) 250 MCG Tab PO SCH (08:14)
[2021-02-22] MEDS: Zinc Sulfate 220 MG (50mg elemental Zinc) Cap PO SCH (08:14)
[2021-02-22] MEDS: Lactobacillus Rhamnosus GG (Probiotic) Cap PO SCH (08:14)
[2021-02-23] MEDS: Multivitamins with Iron/Calcium/Folic Acid/Minerals Tab PO SCH (08:38)
[2021-02-23] MEDS: Cyanocobalamin (Vitamin B12) 250 MCG Tab PO SCH (08:38)
[2021-02-23] MEDS: Ascorbic Acid 500 MG Tab PO SCH (08:38)
[2021-02-23] MEDS: Zinc Sulfate 220 MG (50mg elemental Zinc) Cap PO SCH (08:38)
[2021-02-23] MEDS: Lactobacillus Rhamnosus GG (Probiotic) Cap PO SCH (08:39)
[2021-02-23] MEDS: Cholecalciferol (Vitamin D3) 25 MCG Tab PO SCH (08:39)
[2021-02-23] MEDS: Acetaminophen 325 MG Tab PO SCH ×2 (08:39→20:40)
[2021-02-23] MEDS: BACLOFEN 10 MG PO SCH ×3 (08:40→20:41)
[2021-02-23] MEDS: OXYBUTYNIN 10 MG PO SCH (08:40)
[2021-02-24] MEDS: OXYBUTYNIN 10 MG PO SCH (07:36)
[2021-02-24] MEDS: BACLOFEN 10 MG PO SCH ×3 (07:36→20:16)
[2021-02-24] MEDS: Cyanocobalamin (Vitamin B12) 250 MCG Tab PO SCH (07:37)
[2021-02-24] MEDS: Multivitamins with Iron/Calcium/Folic Acid/Minerals Tab PO SCH (07:37)
[2021-02-24] MEDS: Ascorbic Acid 500 MG Tab PO SCH (07:37)
[2021-02-24] MEDS: Acetaminophen 325 MG Tab PO SCH ×2 (07:37→20:16)
[2021-02-24] MEDS: Lactobacillus Rhamnosus GG (Probiotic) Cap PO SCH (07:38)
[2021-02-24] MEDS: Cholecalciferol (Vitamin D3) 25 MCG Tab PO SCH (07:38)
[2021-02-24] MEDS: Zinc Sulfate 220 MG (50mg elemental Zinc) Cap PO SCH (07:38)
[2021-02-25] MEDS: Ascorbic Acid 500 MG Tab PO SCH (08:21)
[2021-02-25] MEDS: Zinc Sulfate 220 MG (50mg elemental Zinc) Cap PO SCH (08:22)
[2021-02-25] MEDS: Lactobacillus Rhamnosus GG (Probiotic) Cap PO SCH (08:22)
[2021-02-25] MEDS: Multivitamins with Iron/Calcium/Folic Acid/Minerals Tab PO SCH (08:22)
[2021-02-25] MEDS: Cyanocobalamin (Vitamin B12) 250 MCG Tab PO SCH (08:22)
[2021-02-25] MEDS: Acetaminophen 325 MG Tab PO SCH ×2 (08:23→19:32)
[2021-02-25] MEDS: Cholecalciferol (Vitamin D3) 25 MCG Tab PO SCH (08:23)
[2021-02-25] MEDS: BACLOFEN 10 MG PO SCH ×3 (08:25→19:32)
[2021-02-25] MEDS: OXYBUTYNIN 10 MG PO SCH (08:25)
[2021-02-26] MEDS: OXYBUTYNIN 10 MG PO SCH (08:07)
[2021-02-26] MEDS: BACLOFEN 10 MG PO SCH ×3 (08:07→19:21)
[2021-02-26] MEDS: Lactobacillus Rhamnosus GG (Probiotic) Cap PO SCH (08:08)
[2021-02-26] MEDS: Cyanocobalamin (Vitamin B12) 250 MCG Tab PO SCH (08:08)
[2021-02-26] MEDS: Acetaminophen 325 MG Tab PO SCH ×2 (08:09→19:22)
[2021-02-26] MEDS: Cholecalciferol (Vitamin D3) 25 MCG Tab PO SCH (08:09)
[2021-02-26] MEDS: Zinc Sulfate 220 MG (50mg elemental Zinc) Cap PO SCH (08:10)
[2021-02-26] MEDS: Ascorbic Acid 500 MG Tab PO SCH (08:10)
[2021-02-26] MEDS: Multivitamins with Iron/Calcium/Folic Acid/Minerals Tab PO SCH (08:11)
[2021-02-27] MEDS: BACLOFEN 10 MG PO SCH ×3 (07:41→19:22)
[2021-02-27] MEDS: OXYBUTYNIN 10 MG PO SCH (07:41)
[2021-02-27] MEDS: Cyanocobalamin (Vitamin B12) 250 MCG Tab PO SCH (07:42)
[2021-02-27] MEDS: Acetaminophen 325 MG Tab PO SCH ×2 (07:42→19:23)
[2021-02-27] MEDS: Cholecalciferol (Vitamin D3) 25 MCG Tab PO SCH (07:43)
[2021-02-27] MEDS: Multivitamins with Iron/Calcium/Folic Acid/Minerals Tab PO SCH (07:44)
[2021-02-27] MEDS: Ascorbic Acid 500 MG Tab PO SCH (07:44)
[2021-02-27] MEDS: Zinc Sulfate 220 MG (50mg elemental Zinc) Cap PO SCH (07:44)
[2021-02-27] MEDS: Lactobacillus Rhamnosus GG (Probiotic) Cap PO SCH (07:44)
[2021-02-28] MEDS: BACLOFEN 10 MG PO SCH ×3 (07:38→19:40)
[2021-02-28] MEDS: Cyanocobalamin (Vitamin B12) 250 MCG Tab PO SCH (07:39)
[2021-02-28] MEDS: Cholecalciferol (Vitamin D3) 25 MCG Tab PO SCH (07:39)
[2021-02-28] MEDS: OXYBUTYNIN 10 MG PO SCH (07:39)
[2021-02-28] MEDS: Ascorbic Acid 500 MG Tab PO SCH (07:39)
[2021-02-28] MEDS: Zinc Sulfate 220 MG (50mg elemental Zinc) Cap PO SCH (07:40)
[2021-02-28] MEDS: Multivitamins with Iron/Calcium/Folic Acid/Minerals Tab PO SCH (07:40)
[2021-02-28] MEDS: Acetaminophen 325 MG Tab PO SCH ×2 (07:40→19:40)
[2021-02-28] MEDS: Lactobacillus Rhamnosus GG (Probiotic) Cap PO SCH (07:40)
[2021-03-01] MEDS: Cholecalciferol (Vitamin D3) 25 MCG Tab PO SCH (07:44)
[2021-03-01] MEDS: Zinc Sulfate 220 MG (50mg elemental Zinc) Cap PO SCH (07:45)
[2021-03-01] MEDS: Ascorbic Acid 500 MG Tab PO SCH (07:45)
[2021-03-01] MEDS: Lactobacillus Rhamnosus GG (Probiotic) Cap PO SCH (07:45)
[2021-03-01] MEDS: Multivitamins with Iron/Calcium/Folic Acid/Minerals Tab PO SCH (07:45)
[2021-03-01] MEDS: Cyanocobalamin (Vitamin B12) 250 MCG Tab PO SCH (07:45)
[2021-03-01] MEDS: Acetaminophen 325 MG Tab PO SCH ×2 (07:46→19:29)
[2021-03-01] MEDS: OXYBUTYNIN 10 MG PO SCH (07:47)
[2021-03-01] MEDS: BACLOFEN 10 MG PO SCH ×3 (07:47→19:29)
[2021-03-02] MEDS: Acetaminophen 325 MG Tab PO SCH ×2 (07:28→19:51)
[2021-03-02] MEDS: Cyanocobalamin (Vitamin B12) 250 MCG Tab PO SCH (07:29)
[2021-03-02] MEDS: Multivitamins with Iron/Calcium/Folic Acid/Minerals Tab PO SCH (07:29)
[2021-03-02] MEDS: Zinc Sulfate 220 MG (50mg elemental Zinc) Cap PO SCH (07:29)
[2021-03-02] MEDS: Ascorbic Acid 500 MG Tab PO SCH (07:30)
[2021-03-02] MEDS: Cholecalciferol (Vitamin D3) 25 MCG Tab PO SCH (07:30)
[2021-03-02] MEDS: Lactobacillus Rhamnosus GG (Probiotic) Cap PO SCH (07:30)
[2021-03-02] MEDS: OXYBUTYNIN 10 MG PO SCH (07:31)
[2021-03-02] MEDS: BACLOFEN 10 MG PO SCH ×3 (07:31→19:52)
[2021-03-03] MEDS: Cholecalciferol (Vitamin D3) 25 MCG Tab PO SCH (07:45)
[2021-03-03] MEDS: Zinc Sulfate 220 MG (50mg elemental Zinc) Cap PO SCH (07:51)
[2021-03-03] MEDS: Lactobacillus Rhamnosus GG (Probiotic) Cap PO SCH (07:51)
[2021-03-03] MEDS: Multivitamins with Iron/Calcium/Folic Acid/Minerals Tab PO SCH (07:51)
[2021-03-03] MEDS: Acetaminophen 325 MG Tab PO SCH ×2 (07:51→19:21)
[2021-03-03] MEDS: Ascorbic Acid 500 MG Tab PO SCH (07:51)
[2021-03-03] MEDS: Cyanocobalamin (Vitamin B12) 250 MCG Tab PO SCH (07:52)
[2021-03-03] MEDS: BACLOFEN 10 MG PO SCH ×3 (07:53→19:21)
[2021-03-03] MEDS: OXYBUTYNIN 10 MG PO SCH (07:53)
[2021-03-04] MEDS: OXYBUTYNIN 10 MG PO SCH (07:35)
[2021-03-04] MEDS: BACLOFEN 10 MG PO SCH ×3 (07:35→19:30)
[2021-03-04] MEDS: Cyanocobalamin (Vitamin B12) 250 MCG Tab PO SCH (07:36)
[2021-03-04] MEDS: Lactobacillus Rhamnosus GG (Probiotic) Cap PO SCH (07:36)
[2021-03-04] MEDS: Acetaminophen 325 MG Tab PO SCH ×2 (07:36→19:31)
[2021-03-04] MEDS: Cholecalciferol (Vitamin D3) 25 MCG Tab PO SCH (07:36)
[2021-03-04] MEDS: Multivitamins with Iron/Calcium/Folic Acid/Minerals Tab PO SCH (07:36)
[2021-03-04] MEDS: Zinc Sulfate 220 MG (50mg elemental Zinc) Cap PO SCH (07:37)
[2021-03-04] MEDS: Ascorbic Acid 500 MG Tab PO SCH (07:37)
[2021-03-05] MEDS: OXYBUTYNIN 10 MG PO SCH (08:34)
[2021-03-05] MEDS: Cholecalciferol (Vitamin D3) 25 MCG Tab PO SCH (08:34)
[2021-03-05] MEDS: BACLOFEN 10 MG PO SCH ×3 (08:34→19:37)
[2021-03-05] MEDS: Ascorbic Acid 500 MG Tab PO SCH (08:34)
[2021-03-05] MEDS: Lactobacillus Rhamnosus GG (Probiotic) Cap PO SCH (08:35)
[2021-03-05] MEDS: Multivitamins with Iron/Calcium/Folic Acid/Minerals Tab PO SCH (08:35)
[2021-03-05] MEDS: Acetaminophen 325 MG Tab PO SCH ×2 (08:35→19:37)
[2021-03-05] MEDS: Cyanocobalamin (Vitamin B12) 250 MCG Tab PO SCH (08:36)
[2021-03-05] MEDS: Zinc Sulfate 220 MG (50mg elemental Zinc) Cap PO SCH (08:36)
[2021-03-06] MEDS: BACLOFEN 10 MG PO SCH ×3 (09:00→21:23)
[2021-03-06] MEDS: OXYBUTYNIN 10 MG PO SCH (09:00)
[2021-03-06] MEDS: Multivitamins with Iron/Calcium/Folic Acid/Minerals Tab PO SCH (09:01)
[2021-03-06] MEDS: Cholecalciferol (Vitamin D3) 25 MCG Tab PO SCH (09:01)
[2021-03-06] MEDS: Cyanocobalamin (Vitamin B12) 250 MCG Tab PO SCH (09:01)
[2021-03-06] MEDS: Lactobacillus Rhamnosus GG (Probiotic) Cap PO SCH (09:01)
[2021-03-06] MEDS: Acetaminophen 325 MG Tab PO SCH ×2 (09:01→19:36)
[2021-03-06] MEDS: Ascorbic Acid 500 MG Tab PO SCH (09:01)
[2021-03-06] MEDS: Zinc Sulfate 220 MG (50mg elemental Zinc) Cap PO SCH (09:02)
[2021-03-07] MEDS: Acetaminophen 325 MG Tab PO SCH ×2 (08:32→19:26)
[2021-03-07] MEDS: BACLOFEN 10 MG PO SCH ×3 (08:32→19:26)
[2021-03-07] MEDS: OXYBUTYNIN 10 MG PO SCH (08:32)
[2021-03-07] MEDS: Ascorbic Acid 500 MG Tab PO SCH (08:33)
[2021-03-07] MEDS: Cyanocobalamin (Vitamin B12) 250 MCG Tab PO SCH (08:33)
[2021-03-07] MEDS: Cholecalciferol (Vitamin D3) 25 MCG Tab PO SCH (08:34)
[2021-03-07] MEDS: Multivitamins with Iron/Calcium/Folic Acid/Minerals Tab PO SCH (08:34)
[2021-03-07] MEDS: Lactobacillus Rhamnosus GG (Probiotic) Cap PO SCH (08:34)
[2021-03-07] MEDS: Zinc Sulfate 220 MG (50mg elemental Zinc) Cap PO SCH (08:34)
[2021-03-08] MEDS: Cholecalciferol (Vitamin D3) 25 MCG Tab PO SCH (08:39)
[2021-03-08] MEDS: OXYBUTYNIN 10 MG PO SCH (08:40)
[2021-03-08] MEDS: Zinc Sulfate 220 MG (50mg elemental Zinc) Cap PO SCH (08:40)
[2021-03-08] MEDS: BACLOFEN 10 MG PO SCH ×3 (08:40→19:21)
[2021-03-08] MEDS: Multivitamins with Iron/Calcium/Folic Acid/Minerals Tab PO SCH (08:41)
[2021-03-08] MEDS: Lactobacillus Rhamnosus GG (Probiotic) Cap PO SCH (08:41)
[2021-03-08] MEDS: Acetaminophen 325 MG Tab PO SCH ×2 (08:41→19:21)
[2021-03-08] MEDS: Ascorbic Acid 500 MG Tab PO SCH (08:41)
[2021-03-08] MEDS: Cyanocobalamin (Vitamin B12) 250 MCG Tab PO SCH (08:41)
[2021-03-09] MEDS: OXYBUTYNIN 10 MG PO SCH (08:07)
[2021-03-09] MEDS: BACLOFEN 10 MG PO SCH ×3 (08:08→19:31)
[2021-03-09] MEDS: Multivitamins with Iron/Calcium/Folic Acid/Minerals Tab PO SCH (08:08)
[2021-03-09] MEDS: Cyanocobalamin (Vitamin B12) 250 MCG Tab PO SCH (08:08)
[2021-03-09] MEDS: Ascorbic Acid 500 MG Tab PO SCH (08:09)
[2021-03-09] MEDS: Lactobacillus Rhamnosus GG (Probiotic) Cap PO SCH (08:09)
[2021-03-09] MEDS: Cholecalciferol (Vitamin D3) 25 MCG Tab PO SCH (08:09)
[2021-03-09] MEDS: Zinc Sulfate 220 MG (50mg elemental Zinc) Cap PO SCH (08:10)
[2021-03-09] MEDS: Acetaminophen 325 MG Tab PO SCH ×2 (08:10→19:31)
[2021-03-10] MEDS: OXYBUTYNIN 10 MG PO SCH (07:45)
[2021-03-10] MEDS: BACLOFEN 10 MG PO SCH ×3 (07:45→19:40)
[2021-03-10] MEDS: Lactobacillus Rhamnosus GG (Probiotic) Cap PO SCH (07:46)
[2021-03-10] MEDS: Zinc Sulfate 220 MG (50mg elemental Zinc) Cap PO SCH (07:46)
[2021-03-10] MEDS: Acetaminophen 325 MG Tab PO SCH ×2 (07:46→19:41)
[2021-03-10] MEDS: Cyanocobalamin (Vitamin B12) 250 MCG Tab PO SCH (07:46)
[2021-03-10] MEDS: Multivitamins with Iron/Calcium/Folic Acid/Minerals Tab PO SCH (07:47)
[2021-03-10] MEDS: Cholecalciferol (Vitamin D3) 25 MCG Tab PO SCH (07:47)
[2021-03-10] MEDS: Ascorbic Acid 500 MG Tab PO SCH (07:47)
[2021-03-11] MEDS: Lactobacillus Rhamnosus GG (Probiotic) Cap PO SCH (08:02)
[2021-03-11] MEDS: Cholecalciferol (Vitamin D3) 25 MCG Tab PO SCH (08:04)
[2021-03-11] MEDS: Acetaminophen 325 MG Tab PO SCH ×2 (08:04→19:23)
[2021-03-11] MEDS: Zinc Sulfate 220 MG (50mg elemental Zinc) Cap PO SCH (08:05)
[2021-03-11] MEDS: Ascorbic Acid 500 MG Tab PO SCH (08:05)
[2021-03-11] MEDS: Cyanocobalamin (Vitamin B12) 250 MCG Tab PO SCH (08:05)
[2021-03-11] MEDS: Multivitamins with Iron/Calcium/Folic Acid/Minerals Tab PO SCH (08:05)
[2021-03-11] MEDS: OXYBUTYNIN 10 MG PO SCH (08:06)
[2021-03-11] MEDS: BACLOFEN 10 MG PO SCH ×3 (08:06→19:23)
[2021-03-12] MEDS: OXYBUTYNIN 10 MG PO SCH (08:06)
[2021-03-12] MEDS: Lactobacillus Rhamnosus GG (Probiotic) Cap PO SCH (08:06)
[2021-03-12] MEDS: Cyanocobalamin (Vitamin B12) 250 MCG Tab PO SCH (08:06)
[2021-03-12] MEDS: BACLOFEN 10 MG PO SCH ×3 (08:06→20:00)
[2021-03-12] MEDS: Multivitamins with Iron/Calcium/Folic Acid/Minerals Tab PO SCH (08:07)
[2021-03-12] MEDS: Cholecalciferol (Vitamin D3) 25 MCG Tab PO SCH (08:07)
[2021-03-12] MEDS: Ascorbic Acid 500 MG Tab PO SCH (08:07)
[2021-03-12] MEDS: Zinc Sulfate 220 MG (50mg elemental Zinc) Cap PO SCH (08:07)
[2021-03-12] MEDS: Acetaminophen 325 MG Tab PO SCH ×2 (08:08→20:01)
[2021-03-13] MEDS: BACLOFEN 10 MG PO SCH ×3 (07:56→19:56)
[2021-03-13] MEDS: OXYBUTYNIN 10 MG PO SCH (07:56)
[2021-03-13] MEDS: Cyanocobalamin (Vitamin B12) 250 MCG Tab PO SCH (07:56)
[2021-03-13] MEDS: Cholecalciferol (Vitamin D3) 25 MCG Tab PO SCH (07:56)
[2021-03-13] MEDS: Ascorbic Acid 500 MG Tab PO SCH (07:57)
[2021-03-13] MEDS: Multivitamins with Iron/Calcium/Folic Acid/Minerals Tab PO SCH (07:57)
[2021-03-13] MEDS: Acetaminophen 325 MG Tab PO SCH ×2 (07:57→19:56)
[2021-03-13] MEDS: Lactobacillus Rhamnosus GG (Probiotic) Cap PO SCH (07:57)
[2021-03-13] MEDS: Zinc Sulfate 220 MG (50mg elemental Zinc) Cap PO SCH (07:57)
[2021-03-14] MEDS: BACLOFEN 10 MG PO SCH ×3 (10:37→19:31)
[2021-03-14] MEDS: OXYBUTYNIN 10 MG PO SCH (10:37)
[2021-03-14] MEDS: Cyanocobalamin (Vitamin B12) 250 MCG Tab PO SCH (10:38)
[2021-03-14] MEDS: Acetaminophen 325 MG Tab PO SCH ×2 (10:38→19:30)
[2021-03-14] MEDS: Lactobacillus Rhamnosus GG (Probiotic) Cap PO SCH (10:38)
[2021-03-14] MEDS: Multivitamins with Iron/Calcium/Folic Acid/Minerals Tab PO SCH (10:38)
[2021-03-14] MEDS: Cholecalciferol (Vitamin D3) 25 MCG Tab PO SCH (10:38)
[2021-03-14] MEDS: Ascorbic Acid 500 MG Tab PO SCH (10:38)
[2021-03-14] MEDS: Zinc Sulfate 220 MG (50mg elemental Zinc) Cap PO SCH (16:00)
[2021-03-15] MEDS: Cyanocobalamin (Vitamin B12) 250 MCG Tab PO SCH (07:44)
[2021-03-15] MEDS: Acetaminophen 325 MG Tab PO SCH ×2 (07:44→19:47)
[2021-03-15] MEDS: Ascorbic Acid 500 MG Tab PO SCH (07:44)
[2021-03-15] MEDS: Multivitamins with Iron/Calcium/Folic Acid/Minerals Tab PO SCH (07:44)
[2021-03-15] MEDS: Lactobacillus Rhamnosus GG (Probiotic) Cap PO SCH (07:44)
[2021-03-15] MEDS: BACLOFEN 10 MG PO SCH ×3 (07:45→19:45)
[2021-03-15] MEDS: Cholecalciferol (Vitamin D3) 25 MCG Tab PO SCH (07:45)
[2021-03-15] MEDS: OXYBUTYNIN 10 MG PO SCH (07:45)
[2021-03-15] MEDS: Zinc Sulfate 220 MG (50mg elemental Zinc) Cap PO SCH (11:39)
[2021-03-16] MEDS: Cyanocobalamin (Vitamin B12) 250 MCG Tab PO SCH (08:52)
[2021-03-16] MEDS: Multivitamins with Iron/Calcium/Folic Acid/Minerals Tab PO SCH (08:53)
[2021-03-16] MEDS: Acetaminophen 325 MG Tab PO SCH ×2 (08:53→19:44)
[2021-03-16] MEDS: Lactobacillus Rhamnosus GG (Probiotic) Cap PO SCH (08:53)
[2021-03-16] MEDS: Zinc Sulfate 220 MG (50mg elemental Zinc) Cap PO SCH (08:53)
[2021-03-16] MEDS: Ascorbic Acid 500 MG Tab PO SCH (08:53)
[2021-03-16] MEDS: Cholecalciferol (Vitamin D3) 25 MCG Tab PO SCH (08:53)
[2021-03-16] MEDS: OXYBUTYNIN 10 MG PO SCH (08:55)
[2021-03-16] MEDS: BACLOFEN 10 MG PO SCH ×3 (08:55→19:44)
[2021-03-17] MEDS: Lactobacillus Rhamnosus GG (Probiotic) Cap PO SCH (09:03)
[2021-03-17] MEDS: OXYBUTYNIN 10 MG PO SCH (09:04)
[2021-03-17] MEDS: BACLOFEN 10 MG PO SCH ×3 (09:04→20:03)
[2021-03-17] MEDS: Multivitamins with Iron/Calcium/Folic Acid/Minerals Tab PO SCH (09:05)
[2021-03-17] MEDS: Acetaminophen 325 MG Tab PO SCH ×2 (09:05→20:04)
[2021-03-17] MEDS: Ascorbic Acid 500 MG Tab PO SCH (09:06)
[2021-03-17] MEDS: Cholecalciferol (Vitamin D3) 25 MCG Tab PO SCH (09:07)
[2021-03-17] MEDS: Cyanocobalamin (Vitamin B12) 250 MCG Tab PO SCH (09:07)
[2021-03-17] MEDS: Zinc Sulfate 220 MG (50mg elemental Zinc) Cap PO SCH (09:08)
[2021-03-18] MEDS: Cyanocobalamin (Vitamin B12) 250 MCG Tab PO SCH (09:01)
[2021-03-18] MEDS: Lactobacillus Rhamnosus GG (Probiotic) Cap PO SCH (09:02)
[2021-03-18] MEDS: Multivitamins with Iron/Calcium/Folic Acid/Minerals Tab PO SCH (09:02)
[2021-03-18] MEDS: Ascorbic Acid 500 MG Tab PO SCH (09:02)
[2021-03-18] MEDS: Cholecalciferol (Vitamin D3) 25 MCG Tab PO SCH (09:02)
[2021-03-18] MEDS: Zinc Sulfate 220 MG (50mg elemental Zinc) Cap PO SCH (09:03)
[2021-03-18] MEDS: OXYBUTYNIN 10 MG PO SCH (09:03)
[2021-03-18] MEDS: Acetaminophen 325 MG Tab PO SCH ×2 (09:03→19:21)
[2021-03-18] MEDS: BACLOFEN 10 MG PO SCH ×3 (09:04→19:22)
[2021-03-19] MEDS: OXYBUTYNIN 10 MG PO SCH (07:51)
[2021-03-19] MEDS: BACLOFEN 10 MG PO SCH ×3 (07:51→19:27)
[2021-03-19] MEDS: Zinc Sulfate 220 MG (50mg elemental Zinc) Cap PO SCH (07:52)
[2021-03-19] MEDS: Cholecalciferol (Vitamin D3) 25 MCG Tab PO SCH (07:52)
[2021-03-19] MEDS: Ascorbic Acid 500 MG Tab PO SCH (07:52)
[2021-03-19] MEDS: Acetaminophen 325 MG Tab PO SCH ×2 (07:52→19:28)
[2021-03-19] MEDS: Lactobacillus Rhamnosus GG (Probiotic) Cap PO SCH (07:53)
[2021-03-19] MEDS: Cyanocobalamin (Vitamin B12) 250 MCG Tab PO SCH (07:53)
[2021-03-19] MEDS: Multivitamins with Iron/Calcium/Folic Acid/Minerals Tab PO SCH (07:53)
[2021-03-20] MEDS: Lactobacillus Rhamnosus GG (Probiotic) Cap PO SCH (11:28)
[2021-03-20] MEDS: Cyanocobalamin (Vitamin B12) 250 MCG Tab PO SCH (11:45)
[2021-03-20] MEDS: Ascorbic Acid 500 MG Tab PO SCH (11:45)
[2021-03-20] MEDS: OXYBUTYNIN 10 MG PO SCH (11:45)
[2021-03-20] MEDS: Zinc Sulfate 220 MG (50mg elemental Zinc) Cap PO SCH (11:45)
[2021-03-20] MEDS: Acetaminophen 325 MG Tab PO SCH ×2 (11:45→19:20)
[2021-03-20] MEDS: Cholecalciferol (Vitamin D3) 25 MCG Tab PO SCH (11:45)
[2021-03-20] MEDS: Multivitamins with Iron/Calcium/Folic Acid/Minerals Tab PO SCH (11:45)
[2021-03-20] MEDS: BACLOFEN 10 MG PO SCH ×3 (11:45→19:19)
[2021-03-21] MEDS: BACLOFEN 10 MG PO SCH ×3 (08:15→19:34)
[2021-03-21] MEDS: OXYBUTYNIN 10 MG PO SCH (08:15)
[2021-03-21] MEDS: Acetaminophen 325 MG Tab PO SCH ×2 (08:16→19:34)
[2021-03-21] MEDS: Cholecalciferol (Vitamin D3) 25 MCG Tab PO SCH (08:16)
[2021-03-21] MEDS: Cyanocobalamin (Vitamin B12) 250 MCG Tab PO SCH (08:17)
[2021-03-21] MEDS: Ascorbic Acid 500 MG Tab PO SCH (08:17)
[2021-03-21] MEDS: Lactobacillus Rhamnosus GG (Probiotic) Cap PO SCH (08:17)
[2021-03-21] MEDS: Zinc Sulfate 220 MG (50mg elemental Zinc) Cap PO SCH (08:17)
[2021-03-21] MEDS: Multivitamins with Iron/Calcium/Folic Acid/Minerals Tab PO SCH (08:17)
[2021-03-22] MEDS: BACLOFEN 10 MG PO SCH ×3 (07:47→19:35)
[2021-03-22] MEDS: OXYBUTYNIN 10 MG PO SCH (07:47)
[2021-03-22] MEDS: Ascorbic Acid 500 MG Tab PO SCH (07:48)
[2021-03-22] MEDS: Zinc Sulfate 220 MG (50mg elemental Zinc) Cap PO SCH (07:48)
[2021-03-22] MEDS: Cyanocobalamin (Vitamin B12) 250 MCG Tab PO SCH (07:48)
[2021-03-22] MEDS: Multivitamins with Iron/Calcium/Folic Acid/Minerals Tab PO SCH (07:48)
[2021-03-22] MEDS: Cholecalciferol (Vitamin D3) 25 MCG Tab PO SCH (07:48)
[2021-03-22] MEDS: Lactobacillus Rhamnosus GG (Probiotic) Cap PO SCH (07:48)
[2021-03-22] MEDS: Acetaminophen 325 MG Tab PO SCH ×2 (07:49→19:35)
[2021-03-23] MEDS: Acetaminophen 325 MG Tab PO SCH ×2 (07:40→20:23)
[2021-03-23] MEDS: OXYBUTYNIN 10 MG PO SCH (07:41)
[2021-03-23] MEDS: Ascorbic Acid 500 MG Tab PO SCH (07:42)
[2021-03-23] MEDS: Zinc Sulfate 220 MG (50mg elemental Zinc) Cap PO SCH (07:42)
[2021-03-23] MEDS: Lactobacillus Rhamnosus GG (Probiotic) Cap PO SCH (07:42)
[2021-03-23] MEDS: BACLOFEN 10 MG PO SCH ×3 (07:42→20:23)
[2021-03-23] MEDS: Cyanocobalamin (Vitamin B12) 250 MCG Tab PO SCH (07:42)
[2021-03-23] MEDS: Cholecalciferol (Vitamin D3) 25 MCG Tab PO SCH (07:42)
[2021-03-23] MEDS: Multivitamins with Iron/Calcium/Folic Acid/Minerals Tab PO SCH (07:43)
[2021-03-24] MEDS: OXYBUTYNIN 10 MG PO SCH (07:55)
[2021-03-24] MEDS: BACLOFEN 10 MG PO SCH ×3 (07:55→20:41)
[2021-03-24] MEDS: Multivitamins with Iron/Calcium/Folic Acid/Minerals Tab PO SCH (07:56)
[2021-03-24] MEDS: Lactobacillus Rhamnosus GG (Probiotic) Cap PO SCH (07:56)
[2021-03-24] MEDS: Acetaminophen 325 MG Tab PO SCH ×2 (07:56→20:42)
[2021-03-24] MEDS: Ascorbic Acid 500 MG Tab PO SCH (07:56)
[2021-03-24] MEDS: Zinc Sulfate 220 MG (50mg elemental Zinc) Cap PO SCH (07:56)
[2021-03-24] MEDS: Cholecalciferol (Vitamin D3) 25 MCG Tab PO SCH (07:56)
[2021-03-24] MEDS: Cyanocobalamin (Vitamin B12) 250 MCG Tab PO SCH (07:57)
[2021-03-25] MEDS: OXYBUTYNIN 10 MG PO SCH (11:09)
[2021-03-25] MEDS: Multivitamins with Iron/Calcium/Folic Acid/Minerals Tab PO SCH (11:09)
[2021-03-25] MEDS: Zinc Sulfate 220 MG (50mg elemental Zinc) Cap PO SCH (11:09)
[2021-03-25] MEDS: Cyanocobalamin (Vitamin B12) 250 MCG Tab PO SCH (11:09)
[2021-03-25] MEDS: BACLOFEN 10 MG PO SCH ×3 (11:09→21:00)
[2021-03-25] MEDS: Acetaminophen 325 MG Tab PO SCH ×2 (11:10→21:00)
[2021-03-25] MEDS: Cholecalciferol (Vitamin D3) 25 MCG Tab PO SCH (11:10)
[2021-03-25] MEDS: Lactobacillus Rhamnosus GG (Probiotic) Cap PO SCH (11:10)
[2021-03-25] MEDS: Ascorbic Acid 500 MG Tab PO SCH (11:11)
[2021-03-26] MEDS: Acetaminophen 325 MG Tab PO SCH ×2 (07:26→21:00)
[2021-03-26] MEDS: Multivitamins with Iron/Calcium/Folic Acid/Minerals Tab PO SCH (07:27)
[2021-03-26] MEDS: Ascorbic Acid 500 MG Tab PO SCH (07:27)
[2021-03-26] MEDS: OXYBUTYNIN 10 MG PO SCH (07:27)
[2021-03-26] MEDS: BACLOFEN 10 MG PO SCH ×3 (07:27→21:00)
[2021-03-26] MEDS: Cyanocobalamin (Vitamin B12) 250 MCG Tab PO SCH (07:27)
[2021-03-26] MEDS: Cholecalciferol (Vitamin D3) 25 MCG Tab PO SCH (07:28)
[2021-03-26] MEDS: Lactobacillus Rhamnosus GG (Probiotic) Cap PO SCH (07:28)
[2021-03-26] MEDS: Zinc Sulfate 220 MG (50mg elemental Zinc) Cap PO SCH (07:28)
[2021-03-27] MEDS: OXYBUTYNIN 10 MG PO SCH (07:35)
[2021-03-27] MEDS: Acetaminophen 325 MG Tab PO SCH (07:35)
[2021-03-27] MEDS: BACLOFEN 10 MG PO SCH ×3 (07:35→19:32)
[2021-03-27] MEDS: Lactobacillus Rhamnosus GG (Probiotic) Cap PO SCH (07:36)
[2021-03-27] MEDS: Multivitamins with Iron/Calcium/Folic Acid/Minerals Tab PO SCH (07:36)
[2021-03-27] MEDS: Cholecalciferol (Vitamin D3) 25 MCG Tab PO SCH (07:37)
[2021-03-27] MEDS: Ascorbic Acid 500 MG Tab PO SCH (07:37)
[2021-03-27] MEDS: Cyanocobalamin (Vitamin B12) 250 MCG Tab PO SCH (07:37)
[2021-03-27] MEDS: Zinc Sulfate 220 MG (50mg elemental Zinc) Cap PO SCH (07:38)
[2021-03-27] MEDS: Acetaminophen 325 MG Tab PO PRN (19:31)
[2021-03-28] MEDS: Acetaminophen 325 MG Tab PO SCH ×3 (00:34→20:24)
[2021-03-28] MEDS: BACLOFEN 10 MG PO SCH ×2 (07:55→20:25)
[2021-03-28] MEDS: Cholecalciferol (Vitamin D3) 25 MCG Tab PO SCH (07:55)
[2021-03-28] MEDS: OXYBUTYNIN 10 MG PO SCH (07:55)
[2021-03-28] MEDS: Lactobacillus Rhamnosus GG (Probiotic) Cap PO SCH (07:56)
[2021-03-28] MEDS: Zinc Sulfate 220 MG (50mg elemental Zinc) Cap PO SCH (07:56)
[2021-03-28] MEDS: Cyanocobalamin (Vitamin B12) 250 MCG Tab PO SCH (07:56)
[2021-03-28] MEDS: Multivitamins with Iron/Calcium/Folic Acid/Minerals Tab PO SCH (07:56)
[2021-03-28] MEDS: Ascorbic Acid 500 MG Tab PO SCH (07:56)
[2021-03-29] MEDS: OXYBUTYNIN 10 MG PO SCH (09:54)
[2021-03-29] MEDS: Zinc Sulfate 220 MG (50mg elemental Zinc) Cap PO SCH (09:55)
[2021-03-29] MEDS: Acetaminophen 325 MG Tab PO SCH ×2 (09:55→19:42)
[2021-03-29] MEDS: Cholecalciferol (Vitamin D3) 25 MCG Tab PO SCH (09:55)
[2021-03-29] MEDS: Multivitamins with Iron/Calcium/Folic Acid/Minerals Tab PO SCH (09:55)
[2021-03-29] MEDS: Lactobacillus Rhamnosus GG (Probiotic) Cap PO SCH (09:55)
[2021-03-29] MEDS: Cyanocobalamin (Vitamin B12) 250 MCG Tab PO SCH (09:55)
[2021-03-29] MEDS: Ascorbic Acid 500 MG Tab PO SCH (09:56)
[2021-03-29] MEDS: BACLOFEN 10 MG PO SCH ×4 (09:56→19:42)
[2021-03-30] MEDS: Zinc Sulfate 220 MG (50mg elemental Zinc) Cap PO SCH (09:35)
[2021-03-30] MEDS: Cholecalciferol (Vitamin D3) 25 MCG Tab PO SCH (09:35)
[2021-03-30] MEDS: Cyanocobalamin (Vitamin B12) 250 MCG Tab PO SCH (09:35)
[2021-03-30] MEDS: Acetaminophen 325 MG Tab PO SCH ×2 (09:36→20:51)
[2021-03-30] MEDS: Ascorbic Acid 500 MG Tab PO SCH (09:36)
[2021-03-30] MEDS: Lactobacillus Rhamnosus GG (Probiotic) Cap PO SCH (09:36)
[2021-03-30] MEDS: Multivitamins with Iron/Calcium/Folic Acid/Minerals Tab PO SCH (09:36)
[2021-03-30] MEDS: BACLOFEN 10 MG PO SCH ×3 (09:37→20:51)
[2021-03-30] MEDS: OXYBUTYNIN 10 MG PO SCH (09:37)
[2021-03-31] MEDS: Zinc Sulfate 220 MG (50mg elemental Zinc) Cap PO SCH (07:54)
[2021-03-31] MEDS: Lactobacillus Rhamnosus GG (Probiotic) Cap PO SCH (07:54)
[2021-03-31] MEDS: Acetaminophen 325 MG Tab PO SCH ×2 (07:54→20:52)
[2021-03-31] MEDS: Ascorbic Acid 500 MG Tab PO SCH (07:54)
[2021-03-31] MEDS: Cholecalciferol (Vitamin D3) 25 MCG Tab PO SCH (07:55)
[2021-03-31] MEDS: Multivitamins with Iron/Calcium/Folic Acid/Minerals Tab PO SCH (07:56)
[2021-03-31] MEDS: BACLOFEN 10 MG PO SCH ×3 (07:56→20:53)
[2021-03-31] MEDS: Cyanocobalamin (Vitamin B12) 250 MCG Tab PO SCH (07:56)
[2021-03-31] MEDS: OXYBUTYNIN 10 MG PO SCH (07:57)
[2021-04-01] MEDS: Cholecalciferol (Vitamin D3) 25 MCG Tab PO SCH (07:29)
[2021-04-01] MEDS: Acetaminophen 325 MG Tab PO SCH ×2 (07:29→20:13)
[2021-04-01] MEDS: Lactobacillus Rhamnosus GG (Probiotic) Cap PO SCH (07:29)
[2021-04-01] MEDS: Cyanocobalamin (Vitamin B12) 250 MCG Tab PO SCH (07:30)
[2021-04-01] MEDS: Zinc Sulfate 220 MG (50mg elemental Zinc) Cap PO SCH (07:30)
[2021-04-01] MEDS: Ascorbic Acid 500 MG Tab PO SCH (07:30)
[2021-04-01] MEDS: OXYBUTYNIN 10 MG PO SCH (07:31)
[2021-04-01] MEDS: Multivitamins with Iron/Calcium/Folic Acid/Minerals Tab PO SCH (07:31)
[2021-04-01] MEDS: BACLOFEN 10 MG PO SCH ×3 (07:31→20:15)
[2021-04-02] MEDS: Acetaminophen 325 MG Tab PO SCH ×2 (08:12→20:25)
[2021-04-02] MEDS: Zinc Sulfate 220 MG (50mg elemental Zinc) Cap PO SCH (08:12)
[2021-04-02] MEDS: Ascorbic Acid 500 MG Tab PO SCH (08:13)
[2021-04-02] MEDS: Multivitamins with Iron/Calcium/Folic Acid/Minerals Tab PO SCH (08:13)
[2021-04-02] MEDS: Lactobacillus Rhamnosus GG (Probiotic) Cap PO SCH (08:13)
[2021-04-02] MEDS: Cholecalciferol (Vitamin D3) 25 MCG Tab PO SCH (08:13)
[2021-04-02] MEDS: Cyanocobalamin (Vitamin B12) 250 MCG Tab PO SCH (08:13)
[2021-04-02] MEDS: BACLOFEN 10 MG PO SCH ×3 (08:14→20:27)
[2021-04-02] MEDS: OXYBUTYNIN 10 MG PO SCH (08:14)
[2021-04-03] MEDS: Ascorbic Acid 500 MG Tab PO SCH (07:35)
[2021-04-03] MEDS: OXYBUTYNIN 10 MG PO SCH (07:35)
[2021-04-03] MEDS: Zinc Sulfate 220 MG (50mg elemental Zinc) Cap PO SCH (07:35)
[2021-04-03] MEDS: Cholecalciferol (Vitamin D3) 25 MCG Tab PO SCH (07:35)
[2021-04-03] MEDS: BACLOFEN 10 MG PO SCH ×3 (07:35→19:47)
[2021-04-03] MEDS: Cyanocobalamin (Vitamin B12) 250 MCG Tab PO SCH (07:36)
[2021-04-03] MEDS: Lactobacillus Rhamnosus GG (Probiotic) Cap PO SCH (07:36)
[2021-04-03] MEDS: Acetaminophen 325 MG Tab PO SCH ×2 (07:36→19:47)
[2021-04-03] MEDS: Multivitamins with Iron/Calcium/Folic Acid/Minerals Tab PO SCH (07:36)
[2021-04-04] MEDS: BACLOFEN 10 MG PO SCH ×3 (07:48→20:36)
[2021-04-04] MEDS: OXYBUTYNIN 10 MG PO SCH (07:48)
[2021-04-04] MEDS: Cyanocobalamin (Vitamin B12) 250 MCG Tab PO SCH (07:49)
[2021-04-04] MEDS: Zinc Sulfate 220 MG (50mg elemental Zinc) Cap PO SCH (07:49)
[2021-04-04] MEDS: Acetaminophen 325 MG Tab PO SCH ×2 (07:49→20:35)
[2021-04-04] MEDS: Ascorbic Acid 500 MG Tab PO SCH (07:49)
[2021-04-04] MEDS: Lactobacillus Rhamnosus GG (Probiotic) Cap PO SCH (07:49)
[2021-04-04] MEDS: Multivitamins with Iron/Calcium/Folic Acid/Minerals Tab PO SCH (07:49)
[2021-04-04] MEDS: Cholecalciferol (Vitamin D3) 25 MCG Tab PO SCH (07:49)
[2021-04-05] MEDS: Zinc Sulfate 220 MG (50mg elemental Zinc) Cap PO SCH (08:29)
[2021-04-05] MEDS: Cyanocobalamin (Vitamin B12) 250 MCG Tab PO SCH (08:29)
[2021-04-05] MEDS: Acetaminophen 325 MG Tab PO SCH ×2 (08:30→21:00)
[2021-04-05] MEDS: Cholecalciferol (Vitamin D3) 25 MCG Tab PO SCH (08:31)
[2021-04-05] MEDS: Multivitamins with Iron/Calcium/Folic Acid/Minerals Tab PO SCH (08:32)
[2021-04-05] MEDS: Lactobacillus Rhamnosus GG (Probiotic) Cap PO SCH (08:32)
[2021-04-05] MEDS: Ascorbic Acid 500 MG Tab PO SCH (08:32)
[2021-04-05] MEDS: OXYBUTYNIN 10 MG PO SCH (08:34)
[2021-04-05] MEDS: BACLOFEN 10 MG PO SCH ×3 (08:35→21:00)
[2021-04-06] MEDS: OXYBUTYNIN 10 MG PO SCH (08:03)
[2021-04-06] MEDS: Multivitamins with Iron/Calcium/Folic Acid/Minerals Tab PO SCH (08:04)
[2021-04-06] MEDS: BACLOFEN 10 MG PO SCH ×3 (08:04→20:28)
[2021-04-06] MEDS: Cyanocobalamin (Vitamin B12) 250 MCG Tab PO SCH (08:04)
[2021-04-06] MEDS: Ascorbic Acid 500 MG Tab PO SCH (08:04)
[2021-04-06] MEDS: Cholecalciferol (Vitamin D3) 25 MCG Tab PO SCH (08:04)
[2021-04-06] MEDS: Acetaminophen 325 MG Tab PO SCH ×2 (08:05→20:27)
[2021-04-06] MEDS: Lactobacillus Rhamnosus GG (Probiotic) Cap PO SCH (08:05)
[2021-04-06] MEDS: Zinc Sulfate 220 MG (50mg elemental Zinc) Cap PO SCH (08:05)
[2021-04-07] MEDS: Acetaminophen 325 MG Tab PO SCH ×3 (05:06→20:26)
[2021-04-07] MEDS: Cholecalciferol (Vitamin D3) 25 MCG Tab PO SCH ×2 (05:06→19:09)
[2021-04-07] MEDS: Lactobacillus Rhamnosus GG (Probiotic) Cap PO SCH ×2 (05:06→19:08)
[2021-04-07] MEDS: Cyanocobalamin (Vitamin B12) 250 MCG Tab PO SCH ×2 (05:07→19:08)
[2021-04-07] MEDS: Multivitamins with Iron/Calcium/Folic Acid/Minerals Tab PO SCH ×3 (05:07→19:08)
[2021-04-07] MEDS: Ascorbic Acid 500 MG Tab PO SCH ×2 (05:07→19:09)
[2021-04-07] MEDS: Zinc Sulfate 220 MG (50mg elemental Zinc) Cap PO SCH ×2 (05:08→19:09)
[2021-04-07] MEDS: BACLOFEN 10 MG PO SCH ×3 (05:09→20:26)
[2021-04-07] MEDS: OXYBUTYNIN 10 MG PO SCH (19:08)
[2021-04-08] MEDS: BACLOFEN 10 MG PO SCH ×5 (00:17→19:31)
[2021-04-08] MEDS: OXYBUTYNIN 10 MG PO SCH (08:00)
[2021-04-08] MEDS: Cholecalciferol (Vitamin D3) 25 MCG Tab PO SCH (08:12)
[2021-04-08] MEDS: Multivitamins with Iron/Calcium/Folic Acid/Minerals Tab PO SCH (09:13)
[2021-04-08] MEDS: Lactobacillus Rhamnosus GG (Probiotic) Cap PO SCH (09:13)
[2021-04-08] MEDS: Acetaminophen 325 MG Tab PO SCH ×2 (09:13→19:30)
[2021-04-08] MEDS: Zinc Sulfate 220 MG (50mg elemental Zinc) Cap PO SCH (09:14)
[2021-04-08] MEDS: Ascorbic Acid 500 MG Tab PO SCH (09:14)
[2021-04-08] MEDS: Cyanocobalamin (Vitamin B12) 250 MCG Tab PO SCH (10:00)
[2021-04-09] MEDS: Zinc Sulfate 220 MG (50mg elemental Zinc) Cap PO SCH (08:09)
[2021-04-09] MEDS: Acetaminophen 325 MG Tab PO SCH ×2 (08:09→20:01)
[2021-04-09] MEDS: Lactobacillus Rhamnosus GG (Probiotic) Cap PO SCH (08:09)
[2021-04-09] MEDS: Cyanocobalamin (Vitamin B12) 250 MCG Tab PO SCH (08:09)
[2021-04-09] MEDS: OXYBUTYNIN 10 MG PO SCH (08:10)
[2021-04-09] MEDS: Ascorbic Acid 500 MG Tab PO SCH (08:10)
[2021-04-09] MEDS: Cholecalciferol (Vitamin D3) 25 MCG Tab PO SCH (08:10)
[2021-04-09] MEDS: Multivitamins with Iron/Calcium/Folic Acid/Minerals Tab PO SCH (08:10)
[2021-04-09] MEDS: BACLOFEN 10 MG PO SCH ×3 (08:11→20:03)
[2021-04-10] MEDS: Ascorbic Acid 500 MG Tab PO SCH (08:15)
[2021-04-10] MEDS: OXYBUTYNIN 10 MG PO SCH (08:15)
[2021-04-10] MEDS: BACLOFEN 10 MG PO SCH ×3 (08:15→21:00)
[2021-04-10] MEDS: Acetaminophen 325 MG Tab PO SCH ×2 (08:16→21:00)
[2021-04-10] MEDS: Lactobacillus Rhamnosus GG (Probiotic) Cap PO SCH (08:16)
[2021-04-10] MEDS: Zinc Sulfate 220 MG (50mg elemental Zinc) Cap PO SCH (08:17)
[2021-04-10] MEDS: Multivitamins with Iron/Calcium/Folic Acid/Minerals Tab PO SCH (08:17)
[2021-04-10] MEDS: Cholecalciferol (Vitamin D3) 25 MCG Tab PO SCH (08:17)
[2021-04-10] MEDS: Cyanocobalamin (Vitamin B12) 250 MCG Tab PO SCH (08:18)
[2021-04-11] MEDS: BACLOFEN 10 MG PO SCH ×3 (08:56→19:55)
[2021-04-11] MEDS: OXYBUTYNIN 10 MG PO SCH (08:56)
[2021-04-11] MEDS: Acetaminophen 325 MG Tab PO SCH ×2 (08:57→19:56)
[2021-04-11] MEDS: Lactobacillus Rhamnosus GG (Probiotic) Cap PO SCH (08:57)
[2021-04-11] MEDS: Cholecalciferol (Vitamin D3) 25 MCG Tab PO SCH (08:57)
[2021-04-11] MEDS: Multivitamins with Iron/Calcium/Folic Acid/Minerals Tab PO SCH (08:58)
[2021-04-11] MEDS: Ascorbic Acid 500 MG Tab PO SCH (08:58)
[2021-04-11] MEDS: Cyanocobalamin (Vitamin B12) 250 MCG Tab PO SCH (08:58)
[2021-04-11] MEDS: Zinc Sulfate 220 MG (50mg elemental Zinc) Cap PO SCH (08:59)
[2021-04-12] MEDS ORDERED: MODAFINIL 200 MG PO PRN (08:00)
[2021-04-12] MEDS: Ascorbic Acid 500 MG Tab PO SCH (10:05)
[2021-04-12] MEDS: Cholecalciferol (Vitamin D3) 25 MCG Tab PO SCH (10:05)
[2021-04-12] MEDS: Cyanocobalamin (Vitamin B12) 250 MCG Tab PO SCH (10:05)
[2021-04-12] MEDS: Acetaminophen 325 MG Tab PO SCH ×2 (10:05→20:39)
[2021-04-12] MEDS: Lactobacillus Rhamnosus GG (Probiotic) Cap PO SCH (10:06)
[2021-04-12] MEDS: Zinc Sulfate 220 MG (50mg elemental Zinc) Cap PO SCH (10:06)
[2021-04-12] MEDS: BACLOFEN 10 MG PO SCH ×3 (10:07→20:39)
[2021-04-12] MEDS: OXYBUTYNIN 10 MG PO SCH (10:08)
[2021-04-12] MEDS: Multivitamins with Iron/Calcium/Folic Acid/Minerals Tab PO SCH (10:11)
[2021-04-13] MEDS: Lactobacillus Rhamnosus GG (Probiotic) Cap PO SCH (09:10)
[2021-04-13] MEDS: Cholecalciferol (Vitamin D3) 25 MCG Tab PO SCH (09:10)
[2021-04-13] MEDS: Cyanocobalamin (Vitamin B12) 250 MCG Tab PO SCH (09:11)
[2021-04-13] MEDS: Acetaminophen 325 MG Tab PO SCH ×2 (09:11→20:56)
[2021-04-13] MEDS: Ascorbic Acid 500 MG Tab PO SCH (09:11)
[2021-04-13] MEDS: Multivitamins with Iron/Calcium/Folic Acid/Minerals Tab PO SCH (09:11)
[2021-04-13] MEDS: Zinc Sulfate 220 MG (50mg elemental Zinc) Cap PO SCH (09:11)
[2021-04-13] MEDS: OXYBUTYNIN 10 MG PO SCH (09:13)
[2021-04-13] MEDS: BACLOFEN 10 MG PO SCH ×3 (09:13→20:55)
[2021-04-14] MEDS: BACLOFEN 10 MG PO SCH ×3 (07:18→21:11)
[2021-04-14] MEDS: Lactobacillus Rhamnosus GG (Probiotic) Cap PO SCH (07:19)
[2021-04-14] MEDS: OXYBUTYNIN 10 MG PO SCH (07:19)
[2021-04-14] MEDS: Cholecalciferol (Vitamin D3) 25 MCG Tab PO SCH (07:19)
[2021-04-14] MEDS: Cyanocobalamin (Vitamin B12) 250 MCG Tab PO SCH (07:19)
[2021-04-14] MEDS: Multivitamins with Iron/Calcium/Folic Acid/Minerals Tab PO SCH (07:19)
[2021-04-14] MEDS: Ascorbic Acid 500 MG Tab PO SCH (07:19)
[2021-04-14] MEDS: Zinc Sulfate 220 MG (50mg elemental Zinc) Cap PO SCH (07:20)
[2021-04-14] MEDS: Acetaminophen 325 MG Tab PO SCH ×2 (07:20→21:15)
[2021-04-15] MEDS: OXYBUTYNIN 10 MG PO SCH (07:24)
[2021-04-15] MEDS: BACLOFEN 10 MG PO SCH ×3 (07:24→21:14)
[2021-04-15] MEDS: Zinc Sulfate 220 MG (50mg elemental Zinc) Cap PO SCH (07:25)
[2021-04-15] MEDS: Lactobacillus Rhamnosus GG (Probiotic) Cap PO SCH (07:25)
[2021-04-15] MEDS: Ascorbic Acid 500 MG Tab PO SCH (07:25)
[2021-04-15] MEDS: Multivitamins with Iron/Calcium/Folic Acid/Minerals Tab PO SCH (07:25)
[2021-04-15] MEDS: Cyanocobalamin (Vitamin B12) 250 MCG Tab PO SCH (07:25)
[2021-04-15] MEDS: Cholecalciferol (Vitamin D3) 25 MCG Tab PO SCH (07:25)
[2021-04-15] MEDS: Acetaminophen 325 MG Tab PO SCH ×2 (07:25→21:14)
[2021-04-16] MEDS: Ascorbic Acid 500 MG Tab PO SCH (09:30)
[2021-04-16] MEDS: Zinc Sulfate 220 MG (50mg elemental Zinc) Cap PO SCH (09:30)
[2021-04-16] MEDS: Acetaminophen 325 MG Tab PO SCH (09:30)
[2021-04-16] MEDS: OXYBUTYNIN 10 MG PO SCH (09:30)
[2021-04-16] MEDS: Cholecalciferol (Vitamin D3) 25 MCG Tab PO SCH (09:30)
[2021-04-16] MEDS: Multivitamins with Iron/Calcium/Folic Acid/Minerals Tab PO SCH (09:31)
[2021-04-16] MEDS: Cyanocobalamin (Vitamin B12) 250 MCG Tab PO SCH (09:31)
[2021-04-16] MEDS: BACLOFEN 10 MG PO SCH ×2 (09:31→12:17)
[2021-04-16] MEDS: Lactobacillus Rhamnosus GG (Probiotic) Cap PO SCH (09:31)
[2021-04-17] MEDS: Acetaminophen 325 MG Tab PO SCH ×2 (07:48→08:36)
[2021-04-17] MEDS: BACLOFEN 10 MG PO SCH ×3 (07:48→14:01)
[2021-04-17] MEDS: OXYBUTYNIN 10 MG PO SCH (08:35)
[2021-04-17] MEDS: Cholecalciferol (Vitamin D3) 25 MCG Tab PO SCH (08:36)
[2021-04-17] MEDS: Ascorbic Acid 500 MG Tab PO SCH (08:37)
[2021-04-17] MEDS: Cyanocobalamin (Vitamin B12) 250 MCG Tab PO SCH (08:37)
[2021-04-17] MEDS: Multivitamins with Iron/Calcium/Folic Acid/Minerals Tab PO SCH (08:38)
[2021-04-17] MEDS: Lactobacillus Rhamnosus GG (Probiotic) Cap PO SCH (08:38)
[2021-04-17] MEDS: Zinc Sulfate 220 MG (50mg elemental Zinc) Cap PO SCH (08:38)
[2021-04-18] MEDS: BACLOFEN 10 MG PO SCH ×4 (08:50→19:34)
[2021-04-18] MEDS: Acetaminophen 325 MG Tab PO SCH ×3 (08:50→19:35)
[2021-04-18] MEDS: OXYBUTYNIN 10 MG PO SCH (09:09)
[2021-04-18] MEDS: Multivitamins with Iron/Calcium/Folic Acid/Minerals Tab PO SCH (09:10)
[2021-04-18] MEDS: Zinc Sulfate 220 MG (50mg elemental Zinc) Cap PO SCH (09:10)
[2021-04-18] MEDS: Ascorbic Acid 500 MG Tab PO SCH (09:10)
[2021-04-18] MEDS: Lactobacillus Rhamnosus GG (Probiotic) Cap PO SCH (09:10)
[2021-04-18] MEDS: Cyanocobalamin (Vitamin B12) 250 MCG Tab PO SCH (09:10)
[2021-04-18] MEDS: Cholecalciferol (Vitamin D3) 25 MCG Tab PO SCH (09:10)
[2021-04-19] MEDS: OXYBUTYNIN 10 MG PO SCH (07:53)
[2021-04-19] MEDS: BACLOFEN 10 MG PO SCH ×3 (07:53→20:44)
[2021-04-19] MEDS: Acetaminophen 325 MG Tab PO SCH ×2 (07:54→20:43)
[2021-04-19] MEDS: Cholecalciferol (Vitamin D3) 25 MCG Tab PO SCH (07:54)
[2021-04-19] MEDS: Ascorbic Acid 500 MG Tab PO SCH (07:55)
[2021-04-19] MEDS: Zinc Sulfate 220 MG (50mg elemental Zinc) Cap PO SCH (07:55)
[2021-04-19] MEDS: Multivitamins with Iron/Calcium/Folic Acid/Minerals Tab PO SCH (07:55)
[2021-04-19] MEDS: Cyanocobalamin (Vitamin B12) 250 MCG Tab PO SCH (07:55)
[2021-04-19] MEDS: Lactobacillus Rhamnosus GG (Probiotic) Cap PO SCH (07:55)
[2021-04-20] MEDS: BACLOFEN 10 MG PO SCH ×3 (07:35→19:58)
[2021-04-20] MEDS: OXYBUTYNIN 10 MG PO SCH (07:35)
[2021-04-20] MEDS: Multivitamins with Iron/Calcium/Folic Acid/Minerals Tab PO SCH (07:36)
[2021-04-20] MEDS: Lactobacillus Rhamnosus GG (Probiotic) Cap PO SCH (07:36)
[2021-04-20] MEDS: Cyanocobalamin (Vitamin B12) 250 MCG Tab PO SCH (07:36)
[2021-04-20] MEDS: Zinc Sulfate 220 MG (50mg elemental Zinc) Cap PO SCH (07:36)
[2021-04-20] MEDS: Acetaminophen 325 MG Tab PO SCH ×2 (07:36→19:56)
[2021-04-20] MEDS: Cholecalciferol (Vitamin D3) 25 MCG Tab PO SCH (07:36)
[2021-04-20] MEDS: Ascorbic Acid 500 MG Tab PO SCH (07:36)
[2021-04-21] MEDS: OXYBUTYNIN 10 MG PO SCH (07:35)
[2021-04-21] MEDS: BACLOFEN 10 MG PO SCH ×3 (07:35→19:38)
[2021-04-21] MEDS: Acetaminophen 325 MG Tab PO SCH ×2 (07:36→19:38)
[2021-04-21] MEDS: Lactobacillus Rhamnosus GG (Probiotic) Cap PO SCH (07:36)
[2021-04-21] MEDS: Cyanocobalamin (Vitamin B12) 250 MCG Tab PO SCH (07:36)
[2021-04-21] MEDS: Cholecalciferol (Vitamin D3) 25 MCG Tab PO SCH (07:37)
[2021-04-21] MEDS: Multivitamins with Iron/Calcium/Folic Acid/Minerals Tab PO SCH (07:37)
[2021-04-21] MEDS: Ascorbic Acid 500 MG Tab PO SCH (07:37)
[2021-04-21] MEDS: Zinc Sulfate 220 MG (50mg elemental Zinc) Cap PO SCH (07:37)
[2021-04-22] MEDS: BACLOFEN 10 MG PO SCH ×3 (07:19→19:23)
[2021-04-22] MEDS: OXYBUTYNIN 10 MG PO SCH (07:19)
[2021-04-22] MEDS: Cholecalciferol (Vitamin D3) 25 MCG Tab PO SCH (07:19)
[2021-04-22] MEDS: Multivitamins with Iron/Calcium/Folic Acid/Minerals Tab PO SCH (07:19)
[2021-04-22] MEDS: Cyanocobalamin (Vitamin B12) 250 MCG Tab PO SCH (07:20)
[2021-04-22] MEDS: Zinc Sulfate 220 MG (50mg elemental Zinc) Cap PO SCH (07:20)
[2021-04-22] MEDS: Lactobacillus Rhamnosus GG (Probiotic) Cap PO SCH (07:20)
[2021-04-22] MEDS: Acetaminophen 325 MG Tab PO SCH ×2 (07:20→19:21)
[2021-04-22] MEDS: Ascorbic Acid 500 MG Tab PO SCH (07:21)
[2021-04-23] MEDS: BACLOFEN 10 MG PO SCH ×3 (08:57→20:01)
[2021-04-23] MEDS: OXYBUTYNIN 10 MG PO SCH (08:57)
[2021-04-23] MEDS: Cyanocobalamin (Vitamin B12) 250 MCG Tab PO SCH (08:58)
[2021-04-23] MEDS: Cholecalciferol (Vitamin D3) 25 MCG Tab PO SCH (08:58)
[2021-04-23] MEDS: Zinc Sulfate 220 MG (50mg elemental Zinc) Cap PO SCH (08:58)
[2021-04-23] MEDS: Ascorbic Acid 500 MG Tab PO SCH (08:58)
[2021-04-23] MEDS: Multivitamins with Iron/Calcium/Folic Acid/Minerals Tab PO SCH (08:58)
[2021-04-23] MEDS: Lactobacillus Rhamnosus GG (Probiotic) Cap PO SCH (08:58)
[2021-04-23] MEDS: Acetaminophen 325 MG Tab PO SCH ×2 (08:59→20:00)
[2021-04-24] MEDS: BACLOFEN 10 MG PO SCH ×2 (07:44→12:06)
[2021-04-24] MEDS: OXYBUTYNIN 10 MG PO SCH (07:44)
[2021-04-24] MEDS: Lactobacillus Rhamnosus GG (Probiotic) Cap PO SCH (07:45)
[2021-04-24] MEDS: Multivitamins with Iron/Calcium/Folic Acid/Minerals Tab PO SCH (07:45)
[2021-04-24] MEDS: Cholecalciferol (Vitamin D3) 25 MCG Tab PO SCH (07:45)
[2021-04-24] MEDS: Acetaminophen 325 MG Tab PO SCH (07:45)
[2021-04-24] MEDS: Zinc Sulfate 220 MG (50mg elemental Zinc) Cap PO SCH (07:45)
[2021-04-24] MEDS: Cyanocobalamin (Vitamin B12) 250 MCG Tab PO SCH (07:46)
[2021-04-24] MEDS: Ascorbic Acid 500 MG Tab PO SCH (07:46)
[2021-04-25] MEDS: OXYBUTYNIN 10 MG PO SCH (08:10)
[2021-04-25] MEDS: Acetaminophen 325 MG Tab PO SCH ×3 (08:10→21:00)
[2021-04-25] MEDS: BACLOFEN 10 MG PO SCH ×4 (08:10→20:59)
[2021-04-25] MEDS: Multivitamins with Iron/Calcium/Folic Acid/Minerals Tab PO SCH (08:11)
[2021-04-25] MEDS: Ascorbic Acid 500 MG Tab PO SCH (08:11)
[2021-04-25] MEDS: Cyanocobalamin (Vitamin B12) 250 MCG Tab PO SCH (08:11)
[2021-04-25] MEDS: Cholecalciferol (Vitamin D3) 25 MCG Tab PO SCH (08:11)
[2021-04-25] MEDS: Zinc Sulfate 220 MG (50mg elemental Zinc) Cap PO SCH (08:12)
[2021-04-25] MEDS: Lactobacillus Rhamnosus GG (Probiotic) Cap PO SCH (08:12)
[2021-04-26] MEDS: Cyanocobalamin (Vitamin B12) 250 MCG Tab PO SCH (10:01)
[2021-04-26] MEDS: Ascorbic Acid 500 MG Tab PO SCH (10:02)
[2021-04-26] MEDS: Lactobacillus Rhamnosus GG (Probiotic) Cap PO SCH (10:02)
[2021-04-26] MEDS: Zinc Sulfate 220 MG (50mg elemental Zinc) Cap PO SCH (10:03)
[2021-04-26] MEDS: Cholecalciferol (Vitamin D3) 25 MCG Tab PO SCH (10:03)
[2021-04-26] MEDS: Acetaminophen 325 MG Tab PO SCH ×2 (10:03→21:04)
[2021-04-26] MEDS: Multivitamins with Iron/Calcium/Folic Acid/Minerals Tab PO SCH (10:03)
[2021-04-26] MEDS: OXYBUTYNIN 10 MG PO SCH (10:05)
[2021-04-26] MEDS: BACLOFEN 10 MG PO SCH ×3 (10:05→21:05)
[2021-04-27] MEDS: Acetaminophen 325 MG Tab PO SCH ×3 (05:32→21:01)
[2021-04-27] MEDS: Cholecalciferol (Vitamin D3) 25 MCG Tab PO SCH ×2 (05:32→07:42)
[2021-04-27] MEDS: Ascorbic Acid 500 MG Tab PO SCH ×2 (05:33→07:43)
[2021-04-27] MEDS: Lactobacillus Rhamnosus GG (Probiotic) Cap PO SCH ×2 (05:33→07:41)
[2021-04-27] MEDS: Zinc Sulfate 220 MG (50mg elemental Zinc) Cap PO SCH ×2 (05:33→07:42)
[2021-04-27] MEDS: Cyanocobalamin (Vitamin B12) 250 MCG Tab PO SCH ×2 (05:33→07:42)
[2021-04-27] MEDS: OXYBUTYNIN 10 MG PO SCH ×3 (05:34→21:01)
[2021-04-27] MEDS: BACLOFEN 10 MG PO SCH ×4 (05:34→22:36)
[2021-04-27] MEDS: Multivitamins with Iron/Calcium/Folic Acid/Minerals Tab PO SCH (07:41)
[2021-04-27] MEDS ORDERED: [UNRECOGNIZED DRUG - OTHER] SUBCUT SCH (10:00)
[2021-04-28] MEDS: BACLOFEN 10 MG PO SCH ×3 (07:36→19:45)
[2021-04-28] MEDS: OXYBUTYNIN 10 MG PO SCH (07:36)
[2021-04-28] MEDS: Cyanocobalamin (Vitamin B12) 250 MCG Tab PO SCH (07:36)
[2021-04-28] MEDS: Zinc Sulfate 220 MG (50mg elemental Zinc) Cap PO SCH (07:37)
[2021-04-28] MEDS: Acetaminophen 325 MG Tab PO SCH ×2 (07:37→19:45)
[2021-04-28] MEDS: Lactobacillus Rhamnosus GG (Probiotic) Cap PO SCH (07:37)
[2021-04-28] MEDS: Multivitamins with Iron/Calcium/Folic Acid/Minerals Tab PO SCH (07:37)
[2021-04-28] MEDS: Ascorbic Acid 500 MG Tab PO SCH (07:38)
[2021-04-28] MEDS: Cholecalciferol (Vitamin D3) 25 MCG Tab PO SCH (07:38)
[2021-04-28] MEDS: [UNRECOGNIZED DRUG - OTHER] SUBCUT SCH (11:17)
[2021-04-29] MEDS: Cyanocobalamin (Vitamin B12) 250 MCG Tab PO SCH (08:17)
[2021-04-29] MEDS: OXYBUTYNIN 10 MG PO SCH (08:17)
[2021-04-29] MEDS: Lactobacillus Rhamnosus GG (Probiotic) Cap PO SCH (08:17)
[2021-04-29] MEDS: BACLOFEN 10 MG PO SCH ×3 (08:17→20:45)
[2021-04-29] MEDS: Zinc Sulfate 220 MG (50mg elemental Zinc) Cap PO SCH (08:18)
[2021-04-29] MEDS: Ascorbic Acid 500 MG Tab PO SCH (08:18)
[2021-04-29] MEDS: Acetaminophen 325 MG Tab PO SCH ×2 (08:18→20:45)
[2021-04-29] MEDS: Cholecalciferol (Vitamin D3) 25 MCG Tab PO SCH (08:18)
[2021-04-29] MEDS: Multivitamins with Iron/Calcium/Folic Acid/Minerals Tab PO SCH (08:18)
[2021-04-30] MEDS: Ascorbic Acid 500 MG Tab PO SCH (08:19)
[2021-04-30] MEDS: Cyanocobalamin (Vitamin B12) 250 MCG Tab PO SCH (08:19)
[2021-04-30] MEDS: Cholecalciferol (Vitamin D3) 25 MCG Tab PO SCH (08:19)
[2021-04-30] MEDS: Multivitamins with Iron/Calcium/Folic Acid/Minerals Tab PO SCH (08:19)
[2021-04-30] MEDS: Zinc Sulfate 220 MG (50mg elemental Zinc) Cap PO SCH (08:19)
[2021-04-30] MEDS: Lactobacillus Rhamnosus GG (Probiotic) Cap PO SCH (08:19)
[2021-04-30] MEDS: BACLOFEN 10 MG PO SCH ×3 (08:20→21:07)
[2021-04-30] MEDS: Acetaminophen 325 MG Tab PO SCH ×2 (08:20→21:07)
[2021-04-30] MEDS: OXYBUTYNIN 10 MG PO SCH (08:20)
[2021-05-01] MEDS: BACLOFEN 10 MG PO SCH ×3 (07:16→20:45)
[2021-05-01] MEDS: OXYBUTYNIN 10 MG PO SCH (07:16)
[2021-05-01] MEDS: Cholecalciferol (Vitamin D3) 25 MCG Tab PO SCH (07:17)
[2021-05-01] MEDS: Ascorbic Acid 500 MG Tab PO SCH (07:17)
[2021-05-01] MEDS: Zinc Sulfate 220 MG (50mg elemental Zinc) Cap PO SCH (07:17)
[2021-05-01] MEDS: Cyanocobalamin (Vitamin B12) 250 MCG Tab PO SCH (07:17)
[2021-05-01] MEDS: Acetaminophen 325 MG Tab PO SCH ×2 (07:17→20:44)
[2021-05-01] MEDS: Lactobacillus Rhamnosus GG (Probiotic) Cap PO SCH (07:17)
[2021-05-01] MEDS: Multivitamins with Iron/Calcium/Folic Acid/Minerals Tab PO SCH (07:18)
[2021-05-02] MEDS: BACLOFEN 10 MG PO SCH ×3 (08:01→19:49)
[2021-05-02] MEDS: OXYBUTYNIN 10 MG PO SCH (08:01)
[2021-05-02] MEDS: Zinc Sulfate 220 MG (50mg elemental Zinc) Cap PO SCH (08:02)
[2021-05-02] MEDS: Cyanocobalamin (Vitamin B12) 250 MCG Tab PO SCH (08:02)
[2021-05-02] MEDS: Acetaminophen 325 MG Tab PO SCH ×2 (08:02→19:48)
[2021-05-02] MEDS: Multivitamins with Iron/Calcium/Folic Acid/Minerals Tab PO SCH (08:02)
[2021-05-02] MEDS: Lactobacillus Rhamnosus GG (Probiotic) Cap PO SCH (08:02)
[2021-05-02] MEDS: Cholecalciferol (Vitamin D3) 25 MCG Tab PO SCH (08:02)
[2021-05-02] MEDS: Ascorbic Acid 500 MG Tab PO SCH (08:04)
[2021-05-03] MEDS: Acetaminophen 325 MG Tab PO SCH ×2 (08:33→19:59)
[2021-05-03] MEDS: Multivitamins with Iron/Calcium/Folic Acid/Minerals Tab PO SCH (08:33)
[2021-05-03] MEDS: Cyanocobalamin (Vitamin B12) 250 MCG Tab PO SCH (08:34)
[2021-05-03] MEDS: Cholecalciferol (Vitamin D3) 25 MCG Tab PO SCH (08:34)
[2021-05-03] MEDS: Ascorbic Acid 500 MG Tab PO SCH (08:35)
[2021-05-03] MEDS: Lactobacillus Rhamnosus GG (Probiotic) Cap PO SCH (08:35)
[2021-05-03] MEDS: BACLOFEN 10 MG PO SCH ×3 (08:36→20:01)
[2021-05-03] MEDS: OXYBUTYNIN 10 MG PO SCH (08:36)
[2021-05-03] MEDS: Zinc Sulfate 220 MG (50mg elemental Zinc) Cap PO SCH (09:30)
[2021-05-04] MEDS: Acetaminophen 325 MG Tab PO SCH ×2 (07:22→19:52)
[2021-05-04] MEDS: BACLOFEN 10 MG PO SCH ×3 (07:22→19:52)
[2021-05-04] MEDS: OXYBUTYNIN 10 MG PO SCH (07:22)
[2021-05-04] MEDS: Cyanocobalamin (Vitamin B12) 250 MCG Tab PO SCH (07:23)
[2021-05-04] MEDS: Zinc Sulfate 220 MG (50mg elemental Zinc) Cap PO SCH (07:23)
[2021-05-04] MEDS: Lactobacillus Rhamnosus GG (Probiotic) Cap PO SCH (07:23)
[2021-05-04] MEDS: Ascorbic Acid 500 MG Tab PO SCH (07:23)
[2021-05-04] MEDS: Cholecalciferol (Vitamin D3) 25 MCG Tab PO SCH (07:23)
[2021-05-04] MEDS: Multivitamins with Iron/Calcium/Folic Acid/Minerals Tab PO SCH (07:23)
[2021-05-05] MEDS: OXYBUTYNIN 10 MG PO SCH (08:27)
[2021-05-05] MEDS: BACLOFEN 10 MG PO SCH ×3 (08:28→21:05)
[2021-05-05] MEDS: Cyanocobalamin (Vitamin B12) 250 MCG Tab PO SCH (08:29)
[2021-05-05] MEDS: Multivitamins with Iron/Calcium/Folic Acid/Minerals Tab PO SCH (08:29)
[2021-05-05] MEDS: Cholecalciferol (Vitamin D3) 25 MCG Tab PO SCH (08:29)
[2021-05-05] MEDS: Acetaminophen 325 MG Tab PO SCH ×2 (08:30→21:05)
[2021-05-05] MEDS: Lactobacillus Rhamnosus GG (Probiotic) Cap PO SCH (08:30)
[2021-05-05] MEDS: Ascorbic Acid 500 MG Tab PO SCH (08:30)
[2021-05-05] MEDS: Zinc Sulfate 220 MG (50mg elemental Zinc) Cap PO SCH (08:30)
[2021-05-05] MEDS: [UNRECOGNIZED DRUG - OTHER] SUBCUT SCH (11:58)
[2021-05-06] MEDS: Multivitamins with Iron/Calcium/Folic Acid/Minerals Tab PO SCH (07:33)
[2021-05-06] MEDS: Cyanocobalamin (Vitamin B12) 250 MCG Tab PO SCH (07:33)
[2021-05-06] MEDS: Cholecalciferol (Vitamin D3) 25 MCG Tab PO SCH (07:33)
[2021-05-06] MEDS: Ascorbic Acid 500 MG Tab PO SCH (07:33)
[2021-05-06] MEDS: Zinc Sulfate 220 MG (50mg elemental Zinc) Cap PO SCH (07:34)
[2021-05-06] MEDS: Lactobacillus Rhamnosus GG (Probiotic) Cap PO SCH (07:34)
[2021-05-06] MEDS: Acetaminophen 325 MG Tab PO SCH ×2 (07:34→19:25)
[2021-05-06] MEDS: BACLOFEN 10 MG PO SCH ×3 (07:35→19:24)
[2021-05-06] MEDS: OXYBUTYNIN 10 MG PO SCH (07:35)
[2021-05-07] MEDS: Cyanocobalamin (Vitamin B12) 250 MCG Tab PO SCH (08:43)
[2021-05-07] MEDS: Ascorbic Acid 500 MG Tab PO SCH (08:43)
[2021-05-07] MEDS: Lactobacillus Rhamnosus GG (Probiotic) Cap PO SCH (08:43)
[2021-05-07] MEDS: Zinc Sulfate 220 MG (50mg elemental Zinc) Cap PO SCH (08:43)
[2021-05-07] MEDS: Multivitamins with Iron/Calcium/Folic Acid/Minerals Tab PO SCH (08:43)
[2021-05-07] MEDS: OXYBUTYNIN 10 MG PO SCH (08:44)
[2021-05-07] MEDS: Cholecalciferol (Vitamin D3) 25 MCG Tab PO SCH (08:44)
[2021-05-07] MEDS: Acetaminophen 325 MG Tab PO SCH ×2 (08:45→19:27)
[2021-05-07] MEDS: BACLOFEN 10 MG PO SCH ×3 (08:45→19:29)
[2021-05-08] MEDS: BACLOFEN 10 MG PO SCH ×3 (07:17→19:26)
[2021-05-08] MEDS: OXYBUTYNIN 10 MG PO SCH (07:18)
[2021-05-08] MEDS: Acetaminophen 325 MG Tab PO SCH ×2 (07:18→19:26)
[2021-05-08] MEDS: Ascorbic Acid 500 MG Tab PO SCH (07:19)
[2021-05-08] MEDS: Zinc Sulfate 220 MG (50mg elemental Zinc) Cap PO SCH (07:20)
[2021-05-08] MEDS: Cholecalciferol (Vitamin D3) 25 MCG Tab PO SCH (07:20)
[2021-05-08] MEDS: Lactobacillus Rhamnosus GG (Probiotic) Cap PO SCH (07:20)
[2021-05-08] MEDS: Cyanocobalamin (Vitamin B12) 250 MCG Tab PO SCH (07:21)
[2021-05-08] MEDS: Multivitamins with Iron/Calcium/Folic Acid/Minerals Tab PO SCH (07:21)
[2021-05-09] MEDS: OXYBUTYNIN 10 MG PO SCH (07:18)
[2021-05-09] MEDS: BACLOFEN 10 MG PO SCH ×3 (07:18→19:22)
[2021-05-09] MEDS: Acetaminophen 325 MG Tab PO SCH ×2 (07:19→19:22)
[2021-05-09] MEDS: Ascorbic Acid 500 MG Tab PO SCH (07:19)
[2021-05-09] MEDS: Lactobacillus Rhamnosus GG (Probiotic) Cap PO SCH (07:19)
[2021-05-09] MEDS: Cholecalciferol (Vitamin D3) 25 MCG Tab PO SCH (07:19)
[2021-05-09] MEDS: Multivitamins with Iron/Calcium/Folic Acid/Minerals Tab PO SCH (07:19)
[2021-05-09] MEDS: Cyanocobalamin (Vitamin B12) 250 MCG Tab PO SCH (07:20)
[2021-05-09] MEDS: Zinc Sulfate 220 MG (50mg elemental Zinc) Cap PO SCH (07:20)
[2021-05-10] MEDS: BACLOFEN 10 MG PO SCH ×3 (07:27→20:20)
[2021-05-10] MEDS: Cholecalciferol (Vitamin D3) 25 MCG Tab PO SCH (07:28)
[2021-05-10] MEDS: Cyanocobalamin (Vitamin B12) 250 MCG Tab PO SCH (07:28)
[2021-05-10] MEDS: Lactobacillus Rhamnosus GG (Probiotic) Cap PO SCH (07:28)
[2021-05-10] MEDS: Multivitamins with Iron/Calcium/Folic Acid/Minerals Tab PO SCH (07:28)
[2021-05-10] MEDS: Acetaminophen 325 MG Tab PO SCH ×2 (07:28→20:20)
[2021-05-10] MEDS: OXYBUTYNIN 10 MG PO SCH (07:28)
[2021-05-10] MEDS: Ascorbic Acid 500 MG Tab PO SCH (07:29)
[2021-05-10] MEDS: Zinc Sulfate 220 MG (50mg elemental Zinc) Cap PO SCH (07:30)
[2021-05-11] MEDS: BACLOFEN 10 MG PO SCH ×3 (07:32→21:22)
[2021-05-11] MEDS: OXYBUTYNIN 10 MG PO SCH (07:32)
[2021-05-11] MEDS: Lactobacillus Rhamnosus GG (Probiotic) Cap PO SCH (07:33)
[2021-05-11] MEDS: Zinc Sulfate 220 MG (50mg elemental Zinc) Cap PO SCH (07:33)
[2021-05-11] MEDS: Cholecalciferol (Vitamin D3) 25 MCG Tab PO SCH (07:33)
[2021-05-11] MEDS: Cyanocobalamin (Vitamin B12) 250 MCG Tab PO SCH (07:33)
[2021-05-11] MEDS: Acetaminophen 325 MG Tab PO SCH ×2 (07:33→21:21)
[2021-05-11] MEDS: Multivitamins with Iron/Calcium/Folic Acid/Minerals Tab PO SCH (07:34)
[2021-05-11] MEDS: Ascorbic Acid 500 MG Tab PO SCH (07:34)
[2021-05-12] MEDS: OXYBUTYNIN 10 MG PO SCH (07:46)
[2021-05-12] MEDS: BACLOFEN 10 MG PO SCH ×3 (07:47→19:47)
[2021-05-12] MEDS: Cyanocobalamin (Vitamin B12) 250 MCG Tab PO SCH (07:48)
[2021-05-12] MEDS: Zinc Sulfate 220 MG (50mg elemental Zinc) Cap PO SCH (07:48)
[2021-05-12] MEDS: Cholecalciferol (Vitamin D3) 25 MCG Tab PO SCH (07:48)
[2021-05-12] MEDS: Ascorbic Acid 500 MG Tab PO SCH (07:48)
[2021-05-12] MEDS: Acetaminophen 325 MG Tab PO SCH ×2 (07:48→19:46)
[2021-05-12] MEDS: Multivitamins with Iron/Calcium/Folic Acid/Minerals Tab PO SCH (07:48)
[2021-05-12] MEDS: Lactobacillus Rhamnosus GG (Probiotic) Cap PO SCH (07:49)
[2021-05-12] MEDS: [UNRECOGNIZED DRUG - OTHER] SUBCUT SCH (18:10)
[2021-05-13] MEDS: BACLOFEN 10 MG PO SCH ×3 (07:29→20:17)
[2021-05-13] MEDS: OXYBUTYNIN 10 MG PO SCH (07:29)
[2021-05-13] MEDS: Lactobacillus Rhamnosus GG (Probiotic) Cap PO SCH (07:30)
[2021-05-13] MEDS: Ascorbic Acid 500 MG Tab PO SCH (07:30)
[2021-05-13] MEDS: Cyanocobalamin (Vitamin B12) 250 MCG Tab PO SCH (07:30)
[2021-05-13] MEDS: Cholecalciferol (Vitamin D3) 25 MCG Tab PO SCH (07:30)
[2021-05-13] MEDS: Acetaminophen 325 MG Tab PO SCH ×2 (07:30→20:17)
[2021-05-13] MEDS: Multivitamins with Iron/Calcium/Folic Acid/Minerals Tab PO SCH (07:30)
[2021-05-13] MEDS: Zinc Sulfate 220 MG (50mg elemental Zinc) Cap PO SCH (07:31)
[2021-05-14] MEDS: Cyanocobalamin (Vitamin B12) 250 MCG Tab PO SCH (08:49)
[2021-05-14] MEDS: Ascorbic Acid 500 MG Tab PO SCH (08:50)
[2021-05-14] MEDS: Acetaminophen 325 MG Tab PO SCH ×2 (08:50→20:58)
[2021-05-14] MEDS: Cholecalciferol (Vitamin D3) 25 MCG Tab PO SCH (08:50)
[2021-05-14] MEDS: Multivitamins with Iron/Calcium/Folic Acid/Minerals Tab PO SCH (08:50)
[2021-05-14] MEDS: Zinc Sulfate 220 MG (50mg elemental Zinc) Cap PO SCH (08:50)
[2021-05-14] MEDS: Lactobacillus Rhamnosus GG (Probiotic) Cap PO SCH (08:50)
[2021-05-14] MEDS: OXYBUTYNIN 10 MG PO SCH (08:52)
[2021-05-14] MEDS: BACLOFEN 10 MG PO SCH ×3 (08:52→20:59)
[2021-05-15] MEDS: Lactobacillus Rhamnosus GG (Probiotic) Cap PO SCH (07:41)
[2021-05-15] MEDS: Zinc Sulfate 220 MG (50mg elemental Zinc) Cap PO SCH (07:41)
[2021-05-15] MEDS: Multivitamins with Iron/Calcium/Folic Acid/Minerals Tab PO SCH (07:41)
[2021-05-15] MEDS: Cholecalciferol (Vitamin D3) 25 MCG Tab PO SCH (07:41)
[2021-05-15] MEDS: Cyanocobalamin (Vitamin B12) 250 MCG Tab PO SCH (07:41)
[2021-05-15] MEDS: OXYBUTYNIN 10 MG PO SCH (07:42)
[2021-05-15] MEDS: BACLOFEN 10 MG PO SCH ×3 (07:42→20:43)
[2021-05-15] MEDS: Acetaminophen 325 MG Tab PO SCH ×2 (07:42→20:41)
[2021-05-15] MEDS: Ascorbic Acid 500 MG Tab PO SCH (07:42)
[2021-05-16] MEDS: OXYBUTYNIN 10 MG PO SCH (08:57)
[2021-05-16] MEDS: BACLOFEN 10 MG PO SCH ×3 (08:57→20:20)
[2021-05-16] MEDS: Multivitamins with Iron/Calcium/Folic Acid/Minerals Tab PO SCH (08:59)
[2021-05-16] MEDS: Lactobacillus Rhamnosus GG (Probiotic) Cap PO SCH (08:59)
[2021-05-16] MEDS: Zinc Sulfate 220 MG (50mg elemental Zinc) Cap PO SCH (08:59)
[2021-05-16] MEDS: Ascorbic Acid 500 MG Tab PO SCH (08:59)
[2021-05-16] MEDS: Cyanocobalamin (Vitamin B12) 250 MCG Tab PO SCH (08:59)
[2021-05-16] MEDS: Acetaminophen 325 MG Tab PO SCH ×2 (08:59→20:20)
[2021-05-16] MEDS: Cholecalciferol (Vitamin D3) 25 MCG Tab PO SCH (08:59)
[2021-05-17] MEDS: BACLOFEN 10 MG PO SCH ×3 (08:50→20:49)
[2021-05-17] MEDS: OXYBUTYNIN 10 MG PO SCH (08:50)
[2021-05-17] MEDS: Lactobacillus Rhamnosus GG (Probiotic) Cap PO SCH (08:51)
[2021-05-17] MEDS: Acetaminophen 325 MG Tab PO SCH ×2 (08:51→20:49)
[2021-05-17] MEDS: Ascorbic Acid 500 MG Tab PO SCH (08:51)
[2021-05-17] MEDS: Cyanocobalamin (Vitamin B12) 250 MCG Tab PO SCH (08:51)
[2021-05-17] MEDS: Cholecalciferol (Vitamin D3) 25 MCG Tab PO SCH (08:51)
[2021-05-17] MEDS: Multivitamins with Iron/Calcium/Folic Acid/Minerals Tab PO SCH (08:51)
[2021-05-17] MEDS: Zinc Sulfate 220 MG (50mg elemental Zinc) Cap PO SCH (08:51)
[2021-05-18] MEDS: Multivitamins with Iron/Calcium/Folic Acid/Minerals Tab PO SCH (07:55)
[2021-05-18] MEDS: Ascorbic Acid 500 MG Tab PO SCH (07:55)
[2021-05-18] MEDS: Acetaminophen 325 MG Tab PO SCH ×2 (07:55→19:29)
[2021-05-18] MEDS: Cyanocobalamin (Vitamin B12) 250 MCG Tab PO SCH (07:55)
[2021-05-18] MEDS: Lactobacillus Rhamnosus GG (Probiotic) Cap PO SCH (07:56)
[2021-05-18] MEDS: Zinc Sulfate 220 MG (50mg elemental Zinc) Cap PO SCH (07:56)
[2021-05-18] MEDS: Cholecalciferol (Vitamin D3) 25 MCG Tab PO SCH (07:56)
[2021-05-18] MEDS: BACLOFEN 10 MG PO SCH ×3 (07:57→19:29)
[2021-05-18] MEDS: OXYBUTYNIN 10 MG PO SCH (07:57)
[2021-05-19] MEDS: BACLOFEN 10 MG PO SCH ×3 (09:11→20:17)
[2021-05-19] MEDS: Cyanocobalamin (Vitamin B12) 250 MCG Tab PO SCH (09:11)
[2021-05-19] MEDS: OXYBUTYNIN 10 MG PO SCH (09:11)
[2021-05-19] MEDS: Acetaminophen 325 MG Tab PO SCH ×2 (09:12→20:17)
[2021-05-19] MEDS: Ascorbic Acid 500 MG Tab PO SCH (09:12)
[2021-05-19] MEDS: Lactobacillus Rhamnosus GG (Probiotic) Cap PO SCH (09:12)
[2021-05-19] MEDS: Cholecalciferol (Vitamin D3) 25 MCG Tab PO SCH (09:12)
[2021-05-19] MEDS: Multivitamins with Iron/Calcium/Folic Acid/Minerals Tab PO SCH (09:12)
[2021-05-19] MEDS: Zinc Sulfate 220 MG (50mg elemental Zinc) Cap PO SCH (09:12)
[2021-05-19] MEDS: [UNRECOGNIZED DRUG - OTHER] SUBCUT SCH (12:29)
[2021-05-20] MEDS: Acetaminophen 325 MG Tab PO SCH ×2 (07:43→19:14)
[2021-05-20] MEDS: Zinc Sulfate 220 MG (50mg elemental Zinc) Cap PO SCH (07:44)
[2021-05-20] MEDS: Ascorbic Acid 500 MG Tab PO SCH (07:44)
[2021-05-20] MEDS: Cyanocobalamin (Vitamin B12) 250 MCG Tab PO SCH (07:44)
[2021-05-20] MEDS: Lactobacillus Rhamnosus GG (Probiotic) Cap PO SCH (07:44)
[2021-05-20] MEDS: Multivitamins with Iron/Calcium/Folic Acid/Minerals Tab PO SCH (07:44)
[2021-05-20] MEDS: Cholecalciferol (Vitamin D3) 25 MCG Tab PO SCH (07:44)
[2021-05-20] MEDS: OXYBUTYNIN 10 MG PO SCH (07:47)
[2021-05-20] MEDS: BACLOFEN 10 MG PO SCH ×3 (07:47→19:15)
[2021-05-21] MEDS: Zinc Sulfate 220 MG (50mg elemental Zinc) Cap PO SCH (07:28)
[2021-05-21] MEDS: Multivitamins with Iron/Calcium/Folic Acid/Minerals Tab PO SCH (07:28)
[2021-05-21] MEDS: Cholecalciferol (Vitamin D3) 25 MCG Tab PO SCH (07:29)
[2021-05-21] MEDS: Ascorbic Acid 500 MG Tab PO SCH (07:29)
[2021-05-21] MEDS: Lactobacillus Rhamnosus GG (Probiotic) Cap PO SCH (07:29)
[2021-05-21] MEDS: Cyanocobalamin (Vitamin B12) 250 MCG Tab PO SCH (07:29)
[2021-05-21] MEDS: OXYBUTYNIN 10 MG PO SCH (07:30)
[2021-05-21] MEDS: Acetaminophen 325 MG Tab PO SCH ×2 (07:30→20:23)
[2021-05-21] MEDS: BACLOFEN 10 MG PO SCH ×3 (07:30→20:25)
[2021-05-22] MEDS: Ascorbic Acid 500 MG Tab PO SCH (08:10)
[2021-05-22] MEDS: Cyanocobalamin (Vitamin B12) 250 MCG Tab PO SCH (08:10)
[2021-05-22] MEDS: Lactobacillus Rhamnosus GG (Probiotic) Cap PO SCH (08:10)
[2021-05-22] MEDS: Multivitamins with Iron/Calcium/Folic Acid/Minerals Tab PO SCH (08:11)
[2021-05-22] MEDS: Cholecalciferol (Vitamin D3) 25 MCG Tab PO SCH (08:11)
[2021-05-22] MEDS: Zinc Sulfate 220 MG (50mg elemental Zinc) Cap PO SCH (08:11)
[2021-05-22] MEDS: Acetaminophen 325 MG Tab PO SCH ×2 (08:11→20:06)
[2021-05-22] MEDS: BACLOFEN 10 MG PO SCH ×3 (08:13→20:06)
[2021-05-22] MEDS: OXYBUTYNIN 10 MG PO SCH (08:13)
[2021-05-23] MEDS: Cholecalciferol (Vitamin D3) 25 MCG Tab PO SCH (07:56)
[2021-05-23] MEDS: OXYBUTYNIN 10 MG PO SCH (07:56)
[2021-05-23] MEDS: Zinc Sulfate 220 MG (50mg elemental Zinc) Cap PO SCH (07:56)
[2021-05-23] MEDS: Cyanocobalamin (Vitamin B12) 250 MCG Tab PO SCH (07:56)
[2021-05-23] MEDS: Multivitamins with Iron/Calcium/Folic Acid/Minerals Tab PO SCH (07:56)
[2021-05-23] MEDS: Ascorbic Acid 500 MG Tab PO SCH (07:56)
[2021-05-23] MEDS: Lactobacillus Rhamnosus GG (Probiotic) Cap PO SCH (07:56)
[2021-05-23] MEDS: Acetaminophen 325 MG Tab PO SCH ×2 (07:56→19:20)
[2021-05-23] MEDS: BACLOFEN 10 MG PO SCH ×3 (08:01→19:20)
[2021-05-24] MEDS: Acetaminophen 325 MG Tab PO SCH ×2 (07:28→19:48)
[2021-05-24] MEDS: Multivitamins with Iron/Calcium/Folic Acid/Minerals Tab PO SCH (07:29)
[2021-05-24] MEDS: Lactobacillus Rhamnosus GG (Probiotic) Cap PO SCH (07:29)
[2021-05-24] MEDS: Ascorbic Acid 500 MG Tab PO SCH (07:29)
[2021-05-24] MEDS: Cyanocobalamin (Vitamin B12) 250 MCG Tab PO SCH (07:29)
[2021-05-24] MEDS: Cholecalciferol (Vitamin D3) 25 MCG Tab PO SCH (07:29)
[2021-05-24] MEDS: Zinc Sulfate 220 MG (50mg elemental Zinc) Cap PO SCH (07:29)
[2021-05-24] MEDS: BACLOFEN 10 MG PO SCH ×3 (07:29→19:51)
[2021-05-24] MEDS: OXYBUTYNIN 10 MG PO SCH (07:29)
[2021-05-25] MEDS: BACLOFEN 10 MG PO SCH ×4 (04:55→20:02)
[2021-05-25] MEDS: OXYBUTYNIN 10 MG PO SCH ×2 (04:56→07:12)
[2021-05-25] MEDS: Acetaminophen 325 MG Tab PO SCH ×3 (04:56→20:02)
[2021-05-25] MEDS: Cholecalciferol (Vitamin D3) 25 MCG Tab PO SCH ×2 (04:57→07:12)
[2021-05-25] MEDS: Cyanocobalamin (Vitamin B12) 250 MCG Tab PO SCH ×2 (04:57→07:12)
[2021-05-25] MEDS: Ascorbic Acid 500 MG Tab PO SCH ×2 (04:57→07:12)
[2021-05-25] MEDS: Zinc Sulfate 220 MG (50mg elemental Zinc) Cap PO SCH ×2 (04:57→07:13)
[2021-05-25] MEDS: Multivitamins with Iron/Calcium/Folic Acid/Minerals Tab PO SCH ×2 (04:58→07:12)
[2021-05-25] MEDS: Lactobacillus Rhamnosus GG (Probiotic) Cap PO SCH ×2 (04:58→07:12)
[2021-05-26] MEDS: Lactobacillus Rhamnosus GG (Probiotic) Cap PO SCH (07:45)
[2021-05-26] MEDS: Zinc Sulfate 220 MG (50mg elemental Zinc) Cap PO SCH (07:46)
[2021-05-26] MEDS: Acetaminophen 325 MG Tab PO SCH ×2 (07:46→20:17)
[2021-05-26] MEDS: Cholecalciferol (Vitamin D3) 25 MCG Tab PO SCH (07:46)
[2021-05-26] MEDS: Multivitamins with Iron/Calcium/Folic Acid/Minerals Tab PO SCH (07:46)
[2021-05-26] MEDS: Ascorbic Acid 500 MG Tab PO SCH (07:46)
[2021-05-26] MEDS: BACLOFEN 10 MG PO SCH ×3 (07:47→20:17)
[2021-05-26] MEDS: Cyanocobalamin (Vitamin B12) 250 MCG Tab PO SCH (07:47)
[2021-05-26] MEDS: OXYBUTYNIN 10 MG PO SCH (07:47)
[2021-05-26] MEDS ORDERED: [UNRECOGNIZED DRUG - OTHER] SUBCUT ONE (10:30)
[2021-05-27] MEDS: Cholecalciferol (Vitamin D3) 25 MCG Tab PO SCH (07:27)
[2021-05-27] MEDS: Cyanocobalamin (Vitamin B12) 250 MCG Tab PO SCH (07:27)
[2021-05-27] MEDS: OXYBUTYNIN 10 MG PO SCH (07:28)
[2021-05-27] MEDS: Acetaminophen 325 MG Tab PO SCH ×2 (07:28→20:07)
[2021-05-27] MEDS: Zinc Sulfate 220 MG (50mg elemental Zinc) Cap PO SCH (07:28)
[2021-05-27] MEDS: Multivitamins with Iron/Calcium/Folic Acid/Minerals Tab PO SCH (07:28)
[2021-05-27] MEDS: BACLOFEN 10 MG PO SCH ×3 (07:28→20:06)
[2021-05-27] MEDS: Ascorbic Acid 500 MG Tab PO SCH (07:28)
[2021-05-27] MEDS: Lactobacillus Rhamnosus GG (Probiotic) Cap PO SCH (07:28)
[2021-05-28] MEDS: Multivitamins with Iron/Calcium/Folic Acid/Minerals Tab PO SCH (08:03)
[2021-05-28] MEDS: Lactobacillus Rhamnosus GG (Probiotic) Cap PO SCH (08:03)
[2021-05-28] MEDS: Cyanocobalamin (Vitamin B12) 250 MCG Tab PO SCH (08:03)
[2021-05-28] MEDS: Ascorbic Acid 500 MG Tab PO SCH (08:03)
[2021-05-28] MEDS: Zinc Sulfate 220 MG (50mg elemental Zinc) Cap PO SCH (08:03)
[2021-05-28] MEDS: Cholecalciferol (Vitamin D3) 25 MCG Tab PO SCH (08:03)
[2021-05-28] MEDS: Acetaminophen 325 MG Tab PO SCH ×2 (08:04→20:52)
[2021-05-28] MEDS: OXYBUTYNIN 10 MG PO SCH (08:05)
[2021-05-28] MEDS: BACLOFEN 10 MG PO SCH ×3 (08:05→20:52)
[2021-05-28] MEDS: [UNRECOGNIZED DRUG - OTHER] SUBCUT SCH (15:37)
[2021-05-29] MEDS: BACLOFEN 10 MG PO SCH ×3 (08:20→19:52)
[2021-05-29] MEDS: Acetaminophen 325 MG Tab PO SCH ×2 (08:21→19:52)
[2021-05-29] MEDS: Cholecalciferol (Vitamin D3) 25 MCG Tab PO SCH (08:21)
[2021-05-29] MEDS: Multivitamins with Iron/Calcium/Folic Acid/Minerals Tab PO SCH (08:21)
[2021-05-29] MEDS: OXYBUTYNIN 10 MG PO SCH (08:21)
[2021-05-29] MEDS: Lactobacillus Rhamnosus GG (Probiotic) Cap PO SCH (08:21)
[2021-05-29] MEDS: Cyanocobalamin (Vitamin B12) 250 MCG Tab PO SCH (08:21)
[2021-05-29] MEDS: Zinc Sulfate 220 MG (50mg elemental Zinc) Cap PO SCH (08:21)
[2021-05-29] MEDS: Ascorbic Acid 500 MG Tab PO SCH (08:22)
[2021-05-30] MEDS: BACLOFEN 10 MG PO SCH ×3 (08:54→19:22)
[2021-05-30] MEDS: Lactobacillus Rhamnosus GG (Probiotic) Cap PO SCH (08:54)
[2021-05-30] MEDS: Zinc Sulfate 220 MG (50mg elemental Zinc) Cap PO SCH (08:54)
[2021-05-30] MEDS: OXYBUTYNIN 10 MG PO SCH (08:54)
[2021-05-30] MEDS: Cholecalciferol (Vitamin D3) 25 MCG Tab PO SCH (08:55)
[2021-05-30] MEDS: Acetaminophen 325 MG Tab PO SCH ×2 (08:55→19:21)
[2021-05-30] MEDS: Ascorbic Acid 500 MG Tab PO SCH (08:55)
[2021-05-30] MEDS: Multivitamins with Iron/Calcium/Folic Acid/Minerals Tab PO SCH (08:55)
[2021-05-30] MEDS: Cyanocobalamin (Vitamin B12) 250 MCG Tab PO SCH (08:55)
[2021-05-31] MEDS: Lactobacillus Rhamnosus GG (Probiotic) Cap PO SCH (07:41)
[2021-05-31] MEDS: Acetaminophen 325 MG Tab PO SCH ×2 (07:42→19:55)
[2021-05-31] MEDS: Ascorbic Acid 500 MG Tab PO SCH (07:43)
[2021-05-31] MEDS: Cholecalciferol (Vitamin D3) 25 MCG Tab PO SCH (07:44)
[2021-05-31] MEDS: Zinc Sulfate 220 MG (50mg elemental Zinc) Cap PO SCH (07:44)
[2021-05-31] MEDS: Cyanocobalamin (Vitamin B12) 250 MCG Tab PO SCH (07:44)
[2021-05-31] MEDS: BACLOFEN 10 MG PO SCH ×3 (07:46→19:55)
[2021-05-31] MEDS: Multivitamins with Iron/Calcium/Folic Acid/Minerals Tab PO SCH (07:46)
[2021-05-31] MEDS: OXYBUTYNIN 10 MG PO SCH (07:47)
[2021-06-01] MEDS: Acetaminophen 325 MG Tab PO SCH ×2 (08:41→19:36)
[2021-06-01] MEDS: Lactobacillus Rhamnosus GG (Probiotic) Cap PO SCH (08:42)
[2021-06-01] MEDS: Cholecalciferol (Vitamin D3) 25 MCG Tab PO SCH (08:42)
[2021-06-01] MEDS: Cyanocobalamin (Vitamin B12) 250 MCG Tab PO SCH (08:42)
[2021-06-01] MEDS: Ascorbic Acid 500 MG Tab PO SCH (08:42)
[2021-06-01] MEDS: Multivitamins with Iron/Calcium/Folic Acid/Minerals Tab PO SCH (08:43)
[2021-06-01] MEDS: Zinc Sulfate 220 MG (50mg elemental Zinc) Cap PO SCH (08:43)
[2021-06-01] MEDS: OXYBUTYNIN 10 MG PO SCH (08:44)
[2021-06-01] MEDS: BACLOFEN 10 MG PO SCH ×3 (08:44→19:35)
[2021-06-02] MEDS: Zinc Sulfate 220 MG (50mg elemental Zinc) Cap PO SCH (07:35)
[2021-06-02] MEDS: Lactobacillus Rhamnosus GG (Probiotic) Cap PO SCH (07:35)
[2021-06-02] MEDS: Acetaminophen 325 MG Tab PO SCH ×2 (07:35→19:33)
[2021-06-02] MEDS: Cyanocobalamin (Vitamin B12) 250 MCG Tab PO SCH (07:35)
[2021-06-02] MEDS: Multivitamins with Iron/Calcium/Folic Acid/Minerals Tab PO SCH (07:35)
[2021-06-02] MEDS: OXYBUTYNIN 10 MG PO SCH (07:36)
[2021-06-02] MEDS: Cholecalciferol (Vitamin D3) 25 MCG Tab PO SCH (07:36)
[2021-06-02] MEDS: BACLOFEN 10 MG PO SCH ×3 (07:36→19:34)
[2021-06-02] MEDS: Ascorbic Acid 500 MG Tab PO SCH (07:36)
[2021-06-03] MEDS: Lactobacillus Rhamnosus GG (Probiotic) Cap PO SCH (07:15)
[2021-06-03] MEDS: Acetaminophen 325 MG Tab PO SCH ×2 (07:15→19:22)
[2021-06-03] MEDS: Zinc Sulfate 220 MG (50mg elemental Zinc) Cap PO SCH (07:16)
[2021-06-03] MEDS: Cyanocobalamin (Vitamin B12) 250 MCG Tab PO SCH (07:16)
[2021-06-03] MEDS: Multivitamins with Iron/Calcium/Folic Acid/Minerals Tab PO SCH (07:16)
[2021-06-03] MEDS: OXYBUTYNIN 10 MG PO SCH (07:16)
[2021-06-03] MEDS: Ascorbic Acid 500 MG Tab PO SCH (07:16)
[2021-06-03] MEDS: BACLOFEN 10 MG PO SCH ×3 (07:16→19:22)
[2021-06-03] MEDS: Cholecalciferol (Vitamin D3) 25 MCG Tab PO SCH (07:16)
[2021-06-04] MEDS: Acetaminophen 325 MG Tab PO SCH ×2 (07:30→20:34)
[2021-06-04] MEDS: Lactobacillus Rhamnosus GG (Probiotic) Cap PO SCH (07:30)
[2021-06-04] MEDS: Multivitamins with Iron/Calcium/Folic Acid/Minerals Tab PO SCH (07:30)
[2021-06-04] MEDS: Cholecalciferol (Vitamin D3) 25 MCG Tab PO SCH (07:31)
[2021-06-04] MEDS: Ascorbic Acid 500 MG Tab PO SCH (07:31)
[2021-06-04] MEDS: Zinc Sulfate 220 MG (50mg elemental Zinc) Cap PO SCH (07:31)
[2021-06-04] MEDS: Cyanocobalamin (Vitamin B12) 250 MCG Tab PO SCH (07:31)
[2021-06-04] MEDS: OXYBUTYNIN 10 MG PO SCH (07:32)
[2021-06-04] MEDS: BACLOFEN 10 MG PO SCH ×3 (07:32→20:34)
[2021-06-05] MEDS: Cyanocobalamin (Vitamin B12) 250 MCG Tab PO SCH (07:32)
[2021-06-05] MEDS: Acetaminophen 325 MG Tab PO SCH ×2 (07:32→19:36)
[2021-06-05] MEDS: Lactobacillus Rhamnosus GG (Probiotic) Cap PO SCH (07:32)
[2021-06-05] MEDS: Zinc Sulfate 220 MG (50mg elemental Zinc) Cap PO SCH (07:32)
[2021-06-05] MEDS: OXYBUTYNIN 10 MG PO SCH (07:33)
[2021-06-05] MEDS: Multivitamins with Iron/Calcium/Folic Acid/Minerals Tab PO SCH (07:33)
[2021-06-05] MEDS: Cholecalciferol (Vitamin D3) 25 MCG Tab PO SCH (07:33)
[2021-06-05] MEDS: Ascorbic Acid 500 MG Tab PO SCH (07:33)
[2021-06-05] MEDS: BACLOFEN 10 MG PO SCH ×3 (07:33→19:36)
[2021-06-06] MEDS: OXYBUTYNIN 10 MG PO SCH (07:36)
[2021-06-06] MEDS: Multivitamins with Iron/Calcium/Folic Acid/Minerals Tab PO SCH (07:36)
[2021-06-06] MEDS: Acetaminophen 325 MG Tab PO SCH ×2 (07:36→19:28)
[2021-06-06] MEDS: Lactobacillus Rhamnosus GG (Probiotic) Cap PO SCH (07:36)
[2021-06-06] MEDS: Zinc Sulfate 220 MG (50mg elemental Zinc) Cap PO SCH (07:36)
[2021-06-06] MEDS: BACLOFEN 10 MG PO SCH ×3 (07:36→19:28)
[2021-06-06] MEDS: Ascorbic Acid 500 MG Tab PO SCH (07:37)
[2021-06-06] MEDS: Cyanocobalamin (Vitamin B12) 250 MCG Tab PO SCH (07:37)
[2021-06-06] MEDS: Cholecalciferol (Vitamin D3) 25 MCG Tab PO SCH (07:37)
[2021-06-07] MEDS: Acetaminophen 325 MG Tab PO SCH ×2 (08:38→19:22)
[2021-06-07] MEDS: Multivitamins with Iron/Calcium/Folic Acid/Minerals Tab PO SCH (08:39)
[2021-06-07] MEDS: Cyanocobalamin (Vitamin B12) 250 MCG Tab PO SCH (08:39)
[2021-06-07] MEDS: BACLOFEN 10 MG PO SCH ×3 (08:39→19:22)
[2021-06-07] MEDS: Zinc Sulfate 220 MG (50mg elemental Zinc) Cap PO SCH (08:39)
[2021-06-07] MEDS: Cholecalciferol (Vitamin D3) 25 MCG Tab PO SCH (08:39)
[2021-06-07] MEDS: Lactobacillus Rhamnosus GG (Probiotic) Cap PO SCH (08:39)
[2021-06-07] MEDS: OXYBUTYNIN 10 MG PO SCH (08:39)
[2021-06-07] MEDS: Ascorbic Acid 500 MG Tab PO SCH (08:39)
[2021-06-08] MEDS: OXYBUTYNIN 10 MG PO SCH (07:40)
[2021-06-08] MEDS: BACLOFEN 10 MG PO SCH ×3 (07:40→19:24)
[2021-06-08] MEDS: Zinc Sulfate 220 MG (50mg elemental Zinc) Cap PO SCH (07:40)
[2021-06-08] MEDS: Cyanocobalamin (Vitamin B12) 250 MCG Tab PO SCH (07:40)
[2021-06-08] MEDS: Multivitamins with Iron/Calcium/Folic Acid/Minerals Tab PO SCH (07:40)
[2021-06-08] MEDS: Ascorbic Acid 500 MG Tab PO SCH (07:40)
[2021-06-08] MEDS: Acetaminophen 325 MG Tab PO SCH ×2 (07:40→19:24)
[2021-06-08] MEDS: Lactobacillus Rhamnosus GG (Probiotic) Cap PO SCH (07:40)
[2021-06-08] MEDS: Cholecalciferol (Vitamin D3) 25 MCG Tab PO SCH (07:40)
[2021-06-09] MEDS: Cyanocobalamin (Vitamin B12) 250 MCG Tab PO SCH (08:25)
[2021-06-09] MEDS: Lactobacillus Rhamnosus GG (Probiotic) Cap PO SCH (08:29)
[2021-06-09] MEDS: Zinc Sulfate 220 MG (50mg elemental Zinc) Cap PO SCH (08:29)
[2021-06-09] MEDS: Cholecalciferol (Vitamin D3) 25 MCG Tab PO SCH (08:30)
[2021-06-09] MEDS: Ascorbic Acid 500 MG Tab PO SCH (08:31)
[2021-06-09] MEDS: Acetaminophen 325 MG Tab PO SCH ×2 (08:32→20:44)
[2021-06-09] MEDS: Multivitamins with Iron/Calcium/Folic Acid/Minerals Tab PO SCH (08:33)
[2021-06-09] MEDS: BACLOFEN 10 MG PO SCH ×3 (08:34→20:43)
[2021-06-09] MEDS: OXYBUTYNIN 10 MG PO SCH (08:35)
[2021-06-10] MEDS: BACLOFEN 10 MG PO SCH ×3 (07:13→19:42)
[2021-06-10] MEDS: OXYBUTYNIN 10 MG PO SCH (07:13)
[2021-06-10] MEDS: Acetaminophen 325 MG Tab PO SCH ×2 (07:13→19:42)
[2021-06-10] MEDS: Cholecalciferol (Vitamin D3) 25 MCG Tab PO SCH (07:14)
[2021-06-10] MEDS: Ascorbic Acid 500 MG Tab PO SCH (07:14)
[2021-06-10] MEDS: Cyanocobalamin (Vitamin B12) 250 MCG Tab PO SCH (07:14)
[2021-06-10] MEDS: Multivitamins with Iron/Calcium/Folic Acid/Minerals Tab PO SCH (07:14)
[2021-06-10] MEDS: Lactobacillus Rhamnosus GG (Probiotic) Cap PO SCH (07:14)
[2021-06-10] MEDS: Zinc Sulfate 220 MG (50mg elemental Zinc) Cap PO SCH (07:14)
[2021-06-11] MEDS: Lactobacillus Rhamnosus GG (Probiotic) Cap PO SCH (07:43)
[2021-06-11] MEDS: Zinc Sulfate 220 MG (50mg elemental Zinc) Cap PO SCH (07:45)
[2021-06-11] MEDS: Cyanocobalamin (Vitamin B12) 250 MCG Tab PO SCH (07:46)
[2021-06-11] MEDS: Cholecalciferol (Vitamin D3) 25 MCG Tab PO SCH (07:46)
[2021-06-11] MEDS: Acetaminophen 325 MG Tab PO SCH ×2 (07:47→20:18)
[2021-06-11] MEDS: Acetaminophen 325 MG Tab PO PRN (07:47)
[2021-06-11] MEDS: Multivitamins with Iron/Calcium/Folic Acid/Minerals Tab PO SCH (07:47)
[2021-06-11] MEDS: Ascorbic Acid 500 MG Tab PO SCH (07:48)
[2021-06-11] MEDS: OXYBUTYNIN 10 MG PO SCH (07:49)
[2021-06-11] MEDS: BACLOFEN 10 MG PO SCH ×3 (07:50→20:18)
[2021-06-12] MEDS: Cyanocobalamin (Vitamin B12) 250 MCG Tab PO SCH (07:14)
[2021-06-12] MEDS: BACLOFEN 10 MG PO SCH ×3 (07:14→19:28)
[2021-06-12] MEDS: OXYBUTYNIN 10 MG PO SCH (07:14)
[2021-06-12] MEDS: Acetaminophen 325 MG Tab PO SCH ×2 (07:15→19:28)
[2021-06-12] MEDS: Ascorbic Acid 500 MG Tab PO SCH (07:15)
[2021-06-12] MEDS: Cholecalciferol (Vitamin D3) 25 MCG Tab PO SCH (07:15)
[2021-06-12] MEDS: Lactobacillus Rhamnosus GG (Probiotic) Cap PO SCH (07:15)
[2021-06-12] MEDS: Multivitamins with Iron/Calcium/Folic Acid/Minerals Tab PO SCH (07:15)
[2021-06-12] MEDS: Zinc Sulfate 220 MG (50mg elemental Zinc) Cap PO SCH (07:15)
[2021-06-13] MEDS: Ascorbic Acid 500 MG Tab PO SCH (07:45)
[2021-06-13] MEDS: Cholecalciferol (Vitamin D3) 25 MCG Tab PO SCH (07:45)
[2021-06-13] MEDS: Zinc Sulfate 220 MG (50mg elemental Zinc) Cap PO SCH (07:45)
[2021-06-13] MEDS: OXYBUTYNIN 10 MG PO SCH (07:45)
[2021-06-13] MEDS: BACLOFEN 10 MG PO SCH ×3 (07:45→20:36)
[2021-06-13] MEDS: Acetaminophen 325 MG Tab PO SCH ×2 (07:45→20:36)
[2021-06-13] MEDS: Multivitamins with Iron/Calcium/Folic Acid/Minerals Tab PO SCH (07:45)
[2021-06-13] MEDS: Cyanocobalamin (Vitamin B12) 250 MCG Tab PO SCH (07:45)
[2021-06-13] MEDS: Lactobacillus Rhamnosus GG (Probiotic) Cap PO SCH (07:45)
[2021-06-14] MEDS: Multivitamins with Iron/Calcium/Folic Acid/Minerals Tab PO SCH (07:42)
[2021-06-14] MEDS: Cholecalciferol (Vitamin D3) 25 MCG Tab PO SCH (07:42)
[2021-06-14] MEDS: Acetaminophen 325 MG Tab PO SCH ×2 (07:42→19:21)
[2021-06-14] MEDS: Lactobacillus Rhamnosus GG (Probiotic) Cap PO SCH (07:43)
[2021-06-14] MEDS: Cyanocobalamin (Vitamin B12) 250 MCG Tab PO SCH (07:43)
[2021-06-14] MEDS: Ascorbic Acid 500 MG Tab PO SCH (07:44)
[2021-06-14] MEDS: Zinc Sulfate 220 MG (50mg elemental Zinc) Cap PO SCH (07:44)
[2021-06-14] MEDS: OXYBUTYNIN 10 MG PO SCH (07:44)
[2021-06-14] MEDS: BACLOFEN 10 MG PO SCH ×3 (07:44→19:20)
[2021-06-15] MEDS: Acetaminophen 325 MG Tab PO SCH ×2 (07:16→19:33)
[2021-06-15] MEDS: OXYBUTYNIN 10 MG PO SCH (07:16)
[2021-06-15] MEDS: BACLOFEN 10 MG PO SCH ×3 (07:16→19:32)
[2021-06-15] MEDS: Multivitamins with Iron/Calcium/Folic Acid/Minerals Tab PO SCH (07:17)
[2021-06-15] MEDS: Lactobacillus Rhamnosus GG (Probiotic) Cap PO SCH (07:17)
[2021-06-15] MEDS: Cholecalciferol (Vitamin D3) 25 MCG Tab PO SCH (07:17)
[2021-06-15] MEDS: Cyanocobalamin (Vitamin B12) 250 MCG Tab PO SCH (07:17)
[2021-06-15] MEDS: Ascorbic Acid 500 MG Tab PO SCH (07:17)
[2021-06-15] MEDS: Zinc Sulfate 220 MG (50mg elemental Zinc) Cap PO SCH (07:17)
[2021-06-16] MEDS: Multivitamins with Iron/Calcium/Folic Acid/Minerals Tab PO SCH (07:40)
[2021-06-16] MEDS: OXYBUTYNIN 10 MG PO SCH (07:42)
[2021-06-16] MEDS: Lactobacillus Rhamnosus GG (Probiotic) Cap PO SCH (07:42)
[2021-06-16] MEDS: BACLOFEN 10 MG PO SCH ×3 (07:42→19:29)
[2021-06-16] MEDS: Acetaminophen 325 MG Tab PO SCH ×2 (07:43→19:29)
[2021-06-16] MEDS: Cyanocobalamin (Vitamin B12) 250 MCG Tab PO SCH (07:44)
[2021-06-16] MEDS: Ascorbic Acid 500 MG Tab PO SCH (07:44)
[2021-06-16] MEDS: Zinc Sulfate 220 MG (50mg elemental Zinc) Cap PO SCH (07:45)
[2021-06-16] MEDS: Cholecalciferol (Vitamin D3) 25 MCG Tab PO SCH (07:45)
[2021-06-16] MEDS ORDERED: [UNRECOGNIZED DRUG - OTHER] SUBCUT SCH (10:00)
[2021-06-17] MEDS: OXYBUTYNIN 10 MG PO SCH (09:15)
[2021-06-17] MEDS: Acetaminophen 325 MG Tab PO SCH ×2 (09:16→20:42)
[2021-06-17] MEDS: Lactobacillus Rhamnosus GG (Probiotic) Cap PO SCH (09:16)
[2021-06-17] MEDS: Multivitamins with Iron/Calcium/Folic Acid/Minerals Tab PO SCH (09:16)
[2021-06-17] MEDS: BACLOFEN 10 MG PO SCH ×3 (09:16→20:43)
[2021-06-17] MEDS: Cyanocobalamin (Vitamin B12) 250 MCG Tab PO SCH (09:17)
[2021-06-17] MEDS: Ascorbic Acid 500 MG Tab PO SCH (09:17)
[2021-06-17] MEDS: Cholecalciferol (Vitamin D3) 25 MCG Tab PO SCH (09:17)
[2021-06-17] MEDS: Zinc Sulfate 220 MG (50mg elemental Zinc) Cap PO SCH (09:17)
[2021-06-18] MEDS: Lactobacillus Rhamnosus GG (Probiotic) Cap PO SCH (08:02)
[2021-06-18] MEDS: Cholecalciferol (Vitamin D3) 25 MCG Tab PO SCH (08:03)
[2021-06-18] MEDS: Ascorbic Acid 500 MG Tab PO SCH (08:03)
[2021-06-18] MEDS: Zinc Sulfate 220 MG (50mg elemental Zinc) Cap PO SCH (08:03)
[2021-06-18] MEDS: Acetaminophen 325 MG Tab PO SCH ×2 (08:05→19:33)
[2021-06-18] MEDS: Multivitamins with Iron/Calcium/Folic Acid/Minerals Tab PO SCH (08:05)
[2021-06-18] MEDS: Cyanocobalamin (Vitamin B12) 250 MCG Tab PO SCH (08:06)
[2021-06-18] MEDS: BACLOFEN 10 MG PO SCH ×3 (08:07→19:33)
[2021-06-18] MEDS: OXYBUTYNIN 10 MG PO SCH (08:07)
[2021-06-19] MEDS: OXYBUTYNIN 10 MG PO SCH (09:26)
[2021-06-19] MEDS: BACLOFEN 10 MG PO SCH ×3 (09:26→19:28)
[2021-06-19] MEDS: Acetaminophen 325 MG Tab PO SCH ×2 (09:27→19:28)
[2021-06-19] MEDS: Cyanocobalamin (Vitamin B12) 250 MCG Tab PO SCH (09:27)
[2021-06-19] MEDS: Zinc Sulfate 220 MG (50mg elemental Zinc) Cap PO SCH (09:27)
[2021-06-19] MEDS: Lactobacillus Rhamnosus GG (Probiotic) Cap PO SCH (09:27)
[2021-06-19] MEDS: Multivitamins with Iron/Calcium/Folic Acid/Minerals Tab PO SCH (09:28)
[2021-06-19] MEDS: Ascorbic Acid 500 MG Tab PO SCH (09:28)
[2021-06-19] MEDS: Cholecalciferol (Vitamin D3) 25 MCG Tab PO SCH (09:28)
[2021-06-20] MEDS: OXYBUTYNIN 10 MG PO SCH (07:19)
[2021-06-20] MEDS: BACLOFEN 10 MG PO SCH ×3 (07:19→19:50)
[2021-06-20] MEDS: Acetaminophen 325 MG Tab PO SCH ×2 (07:39→19:51)
[2021-06-20] MEDS: Cholecalciferol (Vitamin D3) 25 MCG Tab PO SCH (07:39)
[2021-06-20] MEDS: Zinc Sulfate 220 MG (50mg elemental Zinc) Cap PO SCH (07:39)
[2021-06-20] MEDS: Ascorbic Acid 500 MG Tab PO SCH (07:40)
[2021-06-20] MEDS: Lactobacillus Rhamnosus GG (Probiotic) Cap PO SCH (07:40)
[2021-06-20] MEDS: Multivitamins with Iron/Calcium/Folic Acid/Minerals Tab PO SCH (07:40)
[2021-06-20] MEDS: Cyanocobalamin (Vitamin B12) 250 MCG Tab PO SCH (07:40)
[2021-06-21] MEDS: OXYBUTYNIN 10 MG PO SCH (07:42)
[2021-06-21] MEDS: BACLOFEN 10 MG PO SCH ×3 (07:42→20:08)
[2021-06-21] MEDS: Cholecalciferol (Vitamin D3) 25 MCG Tab PO SCH (07:43)
[2021-06-21] MEDS: Multivitamins with Iron/Calcium/Folic Acid/Minerals Tab PO SCH (07:43)
[2021-06-21] MEDS: Zinc Sulfate 220 MG (50mg elemental Zinc) Cap PO SCH (07:43)
[2021-06-21] MEDS: Acetaminophen 325 MG Tab PO SCH ×2 (07:43→20:09)
[2021-06-21] MEDS: Cyanocobalamin (Vitamin B12) 250 MCG Tab PO SCH (07:43)
[2021-06-21] MEDS: Ascorbic Acid 500 MG Tab PO SCH (07:43)
[2021-06-21] MEDS: Lactobacillus Rhamnosus GG (Probiotic) Cap PO SCH (07:43)
[2021-06-22] MEDS: BACLOFEN 10 MG PO SCH ×3 (07:20→20:38)
[2021-06-22] MEDS: OXYBUTYNIN 10 MG PO SCH (07:20)
[2021-06-22] MEDS: Acetaminophen 325 MG Tab PO SCH ×2 (07:21→20:39)
[2021-06-22] MEDS: Zinc Sulfate 220 MG (50mg elemental Zinc) Cap PO SCH (07:21)
[2021-06-22] MEDS: Cholecalciferol (Vitamin D3) 25 MCG Tab PO SCH (07:21)
[2021-06-22] MEDS: Multivitamins with Iron/Calcium/Folic Acid/Minerals Tab PO SCH (07:21)
[2021-06-22] MEDS: Lactobacillus Rhamnosus GG (Probiotic) Cap PO SCH (07:21)
[2021-06-22] MEDS: Ascorbic Acid 500 MG Tab PO SCH (07:21)
[2021-06-22] MEDS: Cyanocobalamin (Vitamin B12) 250 MCG Tab PO SCH (07:21)
[2021-06-23] MEDS: OXYBUTYNIN 10 MG PO SCH (07:29)
[2021-06-23] MEDS: Acetaminophen 325 MG Tab PO SCH ×2 (07:29→20:32)
[2021-06-23] MEDS: BACLOFEN 10 MG PO SCH ×3 (07:29→20:33)
[2021-06-23] MEDS: Cyanocobalamin (Vitamin B12) 250 MCG Tab PO SCH (07:29)
[2021-06-23] MEDS: Cholecalciferol (Vitamin D3) 25 MCG Tab PO SCH (07:30)
[2021-06-23] MEDS: Multivitamins with Iron/Calcium/Folic Acid/Minerals Tab PO SCH (07:30)
[2021-06-23] MEDS: Zinc Sulfate 220 MG (50mg elemental Zinc) Cap PO SCH (07:30)
[2021-06-23] MEDS: Lactobacillus Rhamnosus GG (Probiotic) Cap PO SCH (07:30)
[2021-06-23] MEDS: Ascorbic Acid 500 MG Tab PO SCH (07:30)
[2021-06-23] MEDS ORDERED: [UNRECOGNIZED DRUG - OTHER] SUBCUT SCH (10:00)
[2021-06-24] MEDS: BACLOFEN 10 MG PO SCH ×3 (08:29→20:17)
[2021-06-24] MEDS: OXYBUTYNIN 10 MG PO SCH (08:29)
[2021-06-24] MEDS: Acetaminophen 325 MG Tab PO SCH ×2 (08:30→20:16)
[2021-06-24] MEDS: Zinc Sulfate 220 MG (50mg elemental Zinc) Cap PO SCH (08:31)
[2021-06-24] MEDS: Lactobacillus Rhamnosus GG (Probiotic) Cap PO SCH (08:31)
[2021-06-24] MEDS: Cyanocobalamin (Vitamin B12) 250 MCG Tab PO SCH (08:31)
[2021-06-24] MEDS: Ascorbic Acid 500 MG Tab PO SCH (08:31)
[2021-06-24] MEDS: Cholecalciferol (Vitamin D3) 25 MCG Tab PO SCH (08:31)
[2021-06-24] MEDS: Multivitamins with Iron/Calcium/Folic Acid/Minerals Tab PO SCH (08:31)
[2021-06-25] MEDS: BACLOFEN 10 MG PO SCH ×3 (07:39→20:06)
[2021-06-25] MEDS: OXYBUTYNIN 10 MG PO SCH (07:39)
[2021-06-25] MEDS: Acetaminophen 325 MG Tab PO SCH ×2 (07:40→20:06)
[2021-06-25] MEDS: Cholecalciferol (Vitamin D3) 25 MCG Tab PO SCH (07:40)
[2021-06-25] MEDS: Cyanocobalamin (Vitamin B12) 250 MCG Tab PO SCH (07:41)
[2021-06-25] MEDS: Ascorbic Acid 500 MG Tab PO SCH (07:41)
[2021-06-25] MEDS: Zinc Sulfate 220 MG (50mg elemental Zinc) Cap PO SCH (07:41)
[2021-06-25] MEDS: Multivitamins with Iron/Calcium/Folic Acid/Minerals Tab PO SCH (07:41)
[2021-06-25] MEDS: Lactobacillus Rhamnosus GG (Probiotic) Cap PO SCH (07:41)
[2021-06-25] MEDS: [UNRECOGNIZED DRUG - OTHER] SUBCUT SCH (10:51)
[2021-06-26] MEDS: Cholecalciferol (Vitamin D3) 25 MCG Tab PO SCH (08:58)
[2021-06-26] MEDS: Ascorbic Acid 500 MG Tab PO SCH (08:58)
[2021-06-26] MEDS: Multivitamins with Iron/Calcium/Folic Acid/Minerals Tab PO SCH (08:58)
[2021-06-26] MEDS: Acetaminophen 325 MG Tab PO SCH ×2 (08:59→19:33)
[2021-06-26] MEDS: Cyanocobalamin (Vitamin B12) 250 MCG Tab PO SCH (08:59)
[2021-06-26] MEDS: Lactobacillus Rhamnosus GG (Probiotic) Cap PO SCH (08:59)
[2021-06-26] MEDS: Zinc Sulfate 220 MG (50mg elemental Zinc) Cap PO SCH (08:59)
[2021-06-26] MEDS: BACLOFEN 10 MG PO SCH ×3 (08:59→19:33)
[2021-06-26] MEDS: OXYBUTYNIN 10 MG PO SCH (09:00)
[2021-06-27] MEDS: Lactobacillus Rhamnosus GG (Probiotic) Cap PO SCH (09:16)
[2021-06-27] MEDS: Ascorbic Acid 500 MG Tab PO SCH (09:16)
[2021-06-27] MEDS: Cyanocobalamin (Vitamin B12) 250 MCG Tab PO SCH (09:16)
[2021-06-27] MEDS: Cholecalciferol (Vitamin D3) 25 MCG Tab PO SCH (09:16)
[2021-06-27] MEDS: Multivitamins with Iron/Calcium/Folic Acid/Minerals Tab PO SCH (09:17)
[2021-06-27] MEDS: Zinc Sulfate 220 MG (50mg elemental Zinc) Cap PO SCH (09:17)
[2021-06-27] MEDS: Acetaminophen 325 MG Tab PO SCH ×2 (09:17→20:40)
[2021-06-27] MEDS: OXYBUTYNIN 10 MG PO SCH (09:18)
[2021-06-27] MEDS: BACLOFEN 10 MG PO SCH ×3 (09:18→20:41)
[2021-06-28] MEDS: OXYBUTYNIN 10 MG PO SCH (07:28)
[2021-06-28] MEDS: BACLOFEN 10 MG PO SCH ×3 (07:28→20:59)
[2021-06-28] MEDS: Acetaminophen 325 MG Tab PO SCH ×2 (07:29→20:58)
[2021-06-28] MEDS: Multivitamins with Iron/Calcium/Folic Acid/Minerals Tab PO SCH (07:29)
[2021-06-28] MEDS: Ascorbic Acid 500 MG Tab PO SCH (07:29)
[2021-06-28] MEDS: Cholecalciferol (Vitamin D3) 25 MCG Tab PO SCH (07:29)
[2021-06-28] MEDS: Lactobacillus Rhamnosus GG (Probiotic) Cap PO SCH (07:29)
[2021-06-28] MEDS: Cyanocobalamin (Vitamin B12) 250 MCG Tab PO SCH (07:29)
[2021-06-28] MEDS: Zinc Sulfate 220 MG (50mg elemental Zinc) Cap PO SCH (07:29)
[2021-06-29] MEDS: Acetaminophen 325 MG Tab PO SCH ×3 (05:16→20:54)
[2021-06-29] MEDS: BACLOFEN 10 MG PO SCH ×4 (05:16→20:53)
[2021-06-29] MEDS: Lactobacillus Rhamnosus GG (Probiotic) Cap PO SCH ×2 (05:16→08:56)
[2021-06-29] MEDS: OXYBUTYNIN 10 MG PO SCH ×2 (05:16→08:57)
[2021-06-29] MEDS: Ascorbic Acid 500 MG Tab PO SCH ×2 (05:17→08:58)
[2021-06-29] MEDS: Zinc Sulfate 220 MG (50mg elemental Zinc) Cap PO SCH ×2 (05:17→08:58)
[2021-06-29] MEDS: Multivitamins with Iron/Calcium/Folic Acid/Minerals Tab PO SCH ×2 (05:17→08:57)
[2021-06-29] MEDS: Cholecalciferol (Vitamin D3) 25 MCG Tab PO SCH ×2 (05:18→08:58)
[2021-06-29] MEDS: Cyanocobalamin (Vitamin B12) 250 MCG Tab PO SCH ×2 (05:18→08:58)
[2021-06-30] MEDS: Zinc Sulfate 220 MG (50mg elemental Zinc) Cap PO SCH (07:14)
[2021-06-30] MEDS: Lactobacillus Rhamnosus GG (Probiotic) Cap PO SCH (07:14)
[2021-06-30] MEDS: Multivitamins with Iron/Calcium/Folic Acid/Minerals Tab PO SCH (07:14)
[2021-06-30] MEDS: BACLOFEN 10 MG PO SCH ×3 (07:14→21:00)
[2021-06-30] MEDS: OXYBUTYNIN 10 MG PO SCH (07:14)
[2021-06-30] MEDS: Cyanocobalamin (Vitamin B12) 250 MCG Tab PO SCH (07:14)
[2021-06-30] MEDS: Cholecalciferol (Vitamin D3) 25 MCG Tab PO SCH (07:15)
[2021-06-30] MEDS: Acetaminophen 325 MG Tab PO SCH ×2 (07:15→21:00)
[2021-06-30] MEDS: Ascorbic Acid 500 MG Tab PO SCH (07:15)
[2021-07-01] MEDS: OXYBUTYNIN 10 MG PO SCH (07:01)
[2021-07-01] MEDS: Zinc Sulfate 220 MG (50mg elemental Zinc) Cap PO SCH (07:01)
[2021-07-01] MEDS: Lactobacillus Rhamnosus GG (Probiotic) Cap PO SCH (07:01)
[2021-07-01] MEDS: Multivitamins with Iron/Calcium/Folic Acid/Minerals Tab PO SCH (07:01)
[2021-07-01] MEDS: Cyanocobalamin (Vitamin B12) 250 MCG Tab PO SCH (07:01)
[2021-07-01] MEDS: BACLOFEN 10 MG PO SCH ×3 (07:01→20:07)
[2021-07-01] MEDS: Cholecalciferol (Vitamin D3) 25 MCG Tab PO SCH (07:02)
[2021-07-01] MEDS: Ascorbic Acid 500 MG Tab PO SCH (07:02)
[2021-07-01] MEDS: Acetaminophen 325 MG Tab PO SCH ×2 (07:02→20:07)
[2021-07-02] MEDS: OXYBUTYNIN 10 MG PO SCH (08:14)
[2021-07-02] MEDS: BACLOFEN 10 MG PO SCH ×3 (08:15→20:20)
[2021-07-02] MEDS: Acetaminophen 325 MG Tab PO SCH ×2 (08:16→20:19)
[2021-07-02] MEDS: Zinc Sulfate 220 MG (50mg elemental Zinc) Cap PO SCH (08:18)
[2021-07-02] MEDS: Cyanocobalamin (Vitamin B12) 250 MCG Tab PO SCH (08:18)
[2021-07-02] MEDS: Multivitamins with Iron/Calcium/Folic Acid/Minerals Tab PO SCH (08:18)
[2021-07-02] MEDS: Cholecalciferol (Vitamin D3) 25 MCG Tab PO SCH (08:19)
[2021-07-02] MEDS: Ascorbic Acid 500 MG Tab PO SCH (08:19)
[2021-07-02] MEDS: Lactobacillus Rhamnosus GG (Probiotic) Cap PO SCH (08:19)
[2021-07-03] MEDS: Acetaminophen 325 MG Tab PO SCH ×2 (08:20→20:27)
[2021-07-03] MEDS: Zinc Sulfate 220 MG (50mg elemental Zinc) Cap PO SCH (08:20)
[2021-07-03] MEDS: BACLOFEN 10 MG PO SCH ×3 (08:20→20:27)
[2021-07-03] MEDS: OXYBUTYNIN 10 MG PO SCH (08:20)
[2021-07-03] MEDS: Ascorbic Acid 500 MG Tab PO SCH (08:20)
[2021-07-03] MEDS: Cyanocobalamin (Vitamin B12) 250 MCG Tab PO SCH (08:20)
[2021-07-03] MEDS: Multivitamins with Iron/Calcium/Folic Acid/Minerals Tab PO SCH (08:21)
[2021-07-03] MEDS: Lactobacillus Rhamnosus GG (Probiotic) Cap PO SCH (08:21)
[2021-07-03] MEDS: Cholecalciferol (Vitamin D3) 25 MCG Tab PO SCH (08:21)
[2021-07-04] MEDS: Multivitamins with Iron/Calcium/Folic Acid/Minerals Tab PO SCH (07:26)
[2021-07-04] MEDS: Cholecalciferol (Vitamin D3) 25 MCG Tab PO SCH (07:26)
[2021-07-04] MEDS: Lactobacillus Rhamnosus GG (Probiotic) Cap PO SCH (07:26)
[2021-07-04] MEDS: Zinc Sulfate 220 MG (50mg elemental Zinc) Cap PO SCH (07:26)
[2021-07-04] MEDS: Cyanocobalamin (Vitamin B12) 250 MCG Tab PO SCH (07:26)
[2021-07-04] MEDS: Ascorbic Acid 500 MG Tab PO SCH (07:26)
[2021-07-04] MEDS: BACLOFEN 10 MG PO SCH ×3 (07:27→19:41)
[2021-07-04] MEDS: OXYBUTYNIN 10 MG PO SCH (07:27)
[2021-07-04] MEDS: Acetaminophen 325 MG Tab PO SCH ×2 (07:27→19:41)
[2021-07-05] MEDS: Multivitamins with Iron/Calcium/Folic Acid/Minerals Tab PO SCH (07:17)
[2021-07-05] MEDS: OXYBUTYNIN 10 MG PO SCH (07:17)
[2021-07-05] MEDS: Zinc Sulfate 220 MG (50mg elemental Zinc) Cap PO SCH (07:17)
[2021-07-05] MEDS: Lactobacillus Rhamnosus GG (Probiotic) Cap PO SCH (07:17)
[2021-07-05] MEDS: Ascorbic Acid 500 MG Tab PO SCH (07:17)
[2021-07-05] MEDS: Cholecalciferol (Vitamin D3) 25 MCG Tab PO SCH (07:17)
[2021-07-05] MEDS: Cyanocobalamin (Vitamin B12) 250 MCG Tab PO SCH (07:17)
[2021-07-05] MEDS: BACLOFEN 10 MG PO SCH ×3 (07:17→19:29)
[2021-07-05] MEDS: Acetaminophen 325 MG Tab PO SCH ×2 (07:18→19:29)
[2021-07-06] MEDS: BACLOFEN 10 MG PO SCH ×3 (07:20→20:10)
[2021-07-06] MEDS: Ascorbic Acid 500 MG Tab PO SCH (07:20)
[2021-07-06] MEDS: Multivitamins with Iron/Calcium/Folic Acid/Minerals Tab PO SCH (07:20)
[2021-07-06] MEDS: Zinc Sulfate 220 MG (50mg elemental Zinc) Cap PO SCH (07:20)
[2021-07-06] MEDS: Acetaminophen 325 MG Tab PO SCH ×2 (07:20→20:10)
[2021-07-06] MEDS: Cyanocobalamin (Vitamin B12) 250 MCG Tab PO SCH (07:20)
[2021-07-06] MEDS: OXYBUTYNIN 10 MG PO SCH (07:20)
[2021-07-06] MEDS: Lactobacillus Rhamnosus GG (Probiotic) Cap PO SCH (07:20)
[2021-07-06] MEDS: Cholecalciferol (Vitamin D3) 25 MCG Tab PO SCH (07:21)
[2021-07-07] MEDS: OXYBUTYNIN 10 MG PO SCH (08:16)
[2021-07-07] MEDS: BACLOFEN 10 MG PO SCH ×4 (08:16→20:17)
[2021-07-07] MEDS: Acetaminophen 325 MG Tab PO SCH ×2 (08:17→20:18)
[2021-07-07] MEDS: Lactobacillus Rhamnosus GG (Probiotic) Cap PO SCH (08:18)
[2021-07-07] MEDS: Zinc Sulfate 220 MG (50mg elemental Zinc) Cap PO SCH (08:18)
[2021-07-07] MEDS: Cholecalciferol (Vitamin D3) 25 MCG Tab PO SCH (08:19)
[2021-07-07] MEDS: Cyanocobalamin (Vitamin B12) 250 MCG Tab PO SCH (08:20)
[2021-07-07] MEDS: Ascorbic Acid 500 MG Tab PO SCH (08:21)
[2021-07-07] MEDS: Multivitamins with Iron/Calcium/Folic Acid/Minerals Tab PO SCH (08:22)
[2021-07-08] MEDS: Zinc Sulfate 220 MG (50mg elemental Zinc) Cap PO SCH (08:09)
[2021-07-08] MEDS: Acetaminophen 325 MG Tab PO SCH ×2 (08:09→19:29)
[2021-07-08] MEDS: OXYBUTYNIN 10 MG PO SCH (08:09)
[2021-07-08] MEDS: BACLOFEN 10 MG PO SCH ×3 (08:09→19:29)
[2021-07-08] MEDS: Cholecalciferol (Vitamin D3) 25 MCG Tab PO SCH (08:09)
[2021-07-08] MEDS: Cyanocobalamin (Vitamin B12) 250 MCG Tab PO SCH (08:10)
[2021-07-08] MEDS: Multivitamins with Iron/Calcium/Folic Acid/Minerals Tab PO SCH (08:10)
[2021-07-08] MEDS: Lactobacillus Rhamnosus GG (Probiotic) Cap PO SCH (08:10)
[2021-07-08] MEDS: Ascorbic Acid 500 MG Tab PO SCH (08:10)
[2021-07-09] MEDS: Ascorbic Acid 500 MG Tab PO SCH (07:59)
[2021-07-09] MEDS: Multivitamins with Iron/Calcium/Folic Acid/Minerals Tab PO SCH (07:59)
[2021-07-09] MEDS: BACLOFEN 10 MG PO SCH ×3 (07:59→19:52)
[2021-07-09] MEDS: OXYBUTYNIN 10 MG PO SCH (07:59)
[2021-07-09] MEDS: Cyanocobalamin (Vitamin B12) 250 MCG Tab PO SCH (08:00)
[2021-07-09] MEDS: Zinc Sulfate 220 MG (50mg elemental Zinc) Cap PO SCH (08:00)
[2021-07-09] MEDS: Cholecalciferol (Vitamin D3) 25 MCG Tab PO SCH (08:00)
[2021-07-09] MEDS: Lactobacillus Rhamnosus GG (Probiotic) Cap PO SCH (08:00)
[2021-07-09] MEDS: Acetaminophen 325 MG Tab PO SCH ×2 (08:00→19:53)
[2021-07-10] MEDS: Cyanocobalamin (Vitamin B12) 250 MCG Tab PO SCH (07:51)
[2021-07-10] MEDS: Cholecalciferol (Vitamin D3) 25 MCG Tab PO SCH (07:51)
[2021-07-10] MEDS: Lactobacillus Rhamnosus GG (Probiotic) Cap PO SCH (07:52)
[2021-07-10] MEDS: Multivitamins with Iron/Calcium/Folic Acid/Minerals Tab PO SCH (07:52)
[2021-07-10] MEDS: Ascorbic Acid 500 MG Tab PO SCH (07:52)
[2021-07-10] MEDS: Acetaminophen 325 MG Tab PO SCH ×2 (07:52→20:01)
[2021-07-10] MEDS: Zinc Sulfate 220 MG (50mg elemental Zinc) Cap PO SCH (07:52)
[2021-07-10] MEDS: BACLOFEN 10 MG PO SCH ×3 (07:53→20:01)
[2021-07-10] MEDS: OXYBUTYNIN 10 MG PO SCH (07:53)
[2021-07-11] MEDS: Lactobacillus Rhamnosus GG (Probiotic) Cap PO SCH (07:57)
[2021-07-11] MEDS: Cholecalciferol (Vitamin D3) 25 MCG Tab PO SCH (07:57)
[2021-07-11] MEDS: Ascorbic Acid 500 MG Tab PO SCH (07:57)
[2021-07-11] MEDS: Zinc Sulfate 220 MG (50mg elemental Zinc) Cap PO SCH (07:58)
[2021-07-11] MEDS: Acetaminophen 325 MG Tab PO SCH ×2 (07:58→19:30)
[2021-07-11] MEDS: OXYBUTYNIN 10 MG PO SCH (07:58)
[2021-07-11] MEDS: BACLOFEN 10 MG PO SCH ×3 (07:58→19:29)
[2021-07-11] MEDS: Multivitamins with Iron/Calcium/Folic Acid/Minerals Tab PO SCH (07:58)
[2021-07-11] MEDS: Cyanocobalamin (Vitamin B12) 250 MCG Tab PO SCH (07:58)
[2021-07-12] MEDS: Lactobacillus Rhamnosus GG (Probiotic) Cap PO SCH (07:52)
[2021-07-12] MEDS: Cholecalciferol (Vitamin D3) 25 MCG Tab PO SCH (07:52)
[2021-07-12] MEDS: OXYBUTYNIN 10 MG PO SCH (07:52)
[2021-07-12] MEDS: BACLOFEN 10 MG PO SCH ×3 (07:52→19:56)
[2021-07-12] MEDS: Multivitamins with Iron/Calcium/Folic Acid/Minerals Tab PO SCH (07:53)
[2021-07-12] MEDS: Zinc Sulfate 220 MG (50mg elemental Zinc) Cap PO SCH (07:53)
[2021-07-12] MEDS: Acetaminophen 325 MG Tab PO SCH ×2 (07:53→19:56)
[2021-07-12] MEDS: Ascorbic Acid 500 MG Tab PO SCH (07:53)
[2021-07-12] MEDS: Cyanocobalamin (Vitamin B12) 250 MCG Tab PO SCH (07:53)
[2021-07-13] MEDS: Ascorbic Acid 500 MG Tab PO SCH (09:42)
[2021-07-13] MEDS: Lactobacillus Rhamnosus GG (Probiotic) Cap PO SCH (09:42)
[2021-07-13] MEDS: Cholecalciferol (Vitamin D3) 25 MCG Tab PO SCH (09:42)
[2021-07-13] MEDS: Zinc Sulfate 220 MG (50mg elemental Zinc) Cap PO SCH (09:43)
[2021-07-13] MEDS: OXYBUTYNIN 10 MG PO SCH (09:43)
[2021-07-13] MEDS: Cyanocobalamin (Vitamin B12) 250 MCG Tab PO SCH (09:43)
[2021-07-13] MEDS: Multivitamins with Iron/Calcium/Folic Acid/Minerals Tab PO SCH (09:43)
[2021-07-13] MEDS: BACLOFEN 10 MG PO SCH ×3 (09:44→20:03)
[2021-07-13] MEDS: Acetaminophen 325 MG Tab PO SCH ×2 (09:44→20:03)
[2021-07-14] MEDS: Multivitamins with Iron/Calcium/Folic Acid/Minerals Tab PO SCH (07:29)
[2021-07-14] MEDS: Cyanocobalamin (Vitamin B12) 250 MCG Tab PO SCH (07:29)
[2021-07-14] MEDS: Zinc Sulfate 220 MG (50mg elemental Zinc) Cap PO SCH (07:29)
[2021-07-14] MEDS: Lactobacillus Rhamnosus GG (Probiotic) Cap PO SCH (07:29)
[2021-07-14] MEDS: OXYBUTYNIN 10 MG PO SCH (07:30)
[2021-07-14] MEDS: Ascorbic Acid 500 MG Tab PO SCH (07:30)
[2021-07-14] MEDS: Acetaminophen 325 MG Tab PO SCH ×2 (07:30→19:52)
[2021-07-14] MEDS: Cholecalciferol (Vitamin D3) 25 MCG Tab PO SCH (07:30)
[2021-07-14] MEDS: BACLOFEN 10 MG PO SCH ×3 (07:30→19:52)
[2021-07-15] MEDS: Zinc Sulfate 220 MG (50mg elemental Zinc) Cap PO SCH (07:10)
[2021-07-15] MEDS: Multivitamins with Iron/Calcium/Folic Acid/Minerals Tab PO SCH (07:10)
[2021-07-15] MEDS: Lactobacillus Rhamnosus GG (Probiotic) Cap PO SCH (07:10)
[2021-07-15] MEDS: BACLOFEN 10 MG PO SCH ×3 (07:11→20:09)
[2021-07-15] MEDS: Cyanocobalamin (Vitamin B12) 250 MCG Tab PO SCH (07:11)
[2021-07-15] MEDS: Ascorbic Acid 500 MG Tab PO SCH (07:11)
[2021-07-15] MEDS: Cholecalciferol (Vitamin D3) 25 MCG Tab PO SCH (07:11)
[2021-07-15] MEDS: Acetaminophen 325 MG Tab PO SCH ×2 (07:11→20:10)
[2021-07-15] MEDS: OXYBUTYNIN 10 MG PO SCH (07:12)
[2021-07-16] MEDS: Lactobacillus Rhamnosus GG (Probiotic) Cap PO SCH (07:18)
[2021-07-16] MEDS: BACLOFEN 10 MG PO SCH ×3 (07:18→19:39)
[2021-07-16] MEDS: Zinc Sulfate 220 MG (50mg elemental Zinc) Cap PO SCH (07:18)
[2021-07-16] MEDS: OXYBUTYNIN 10 MG PO SCH (07:18)
[2021-07-16] MEDS: Cyanocobalamin (Vitamin B12) 250 MCG Tab PO SCH (07:18)
[2021-07-16] MEDS: Ascorbic Acid 500 MG Tab PO SCH (07:19)
[2021-07-16] MEDS: Multivitamins with Iron/Calcium/Folic Acid/Minerals Tab PO SCH (07:19)
[2021-07-16] MEDS: Acetaminophen 325 MG Tab PO SCH ×2 (07:19→19:40)
[2021-07-16] MEDS: Cholecalciferol (Vitamin D3) 25 MCG Tab PO SCH (07:19)
[2021-07-17] MEDS: OXYBUTYNIN 10 MG PO SCH (07:14)
[2021-07-17] MEDS: Zinc Sulfate 220 MG (50mg elemental Zinc) Cap PO SCH (07:14)
[2021-07-17] MEDS: Lactobacillus Rhamnosus GG (Probiotic) Cap PO SCH (07:14)
[2021-07-17] MEDS: BACLOFEN 10 MG PO SCH ×3 (07:14→20:05)
[2021-07-17] MEDS: Cyanocobalamin (Vitamin B12) 250 MCG Tab PO SCH (07:15)
[2021-07-17] MEDS: Multivitamins with Iron/Calcium/Folic Acid/Minerals Tab PO SCH (07:15)
[2021-07-17] MEDS: Cholecalciferol (Vitamin D3) 25 MCG Tab PO SCH (07:15)
[2021-07-17] MEDS: Acetaminophen 325 MG Tab PO SCH ×2 (07:15→20:05)
[2021-07-17] MEDS: Ascorbic Acid 500 MG Tab PO SCH (07:15)
[2021-07-18] MEDS: Multivitamins with Iron/Calcium/Folic Acid/Minerals Tab PO SCH (07:14)
[2021-07-18] MEDS: Zinc Sulfate 220 MG (50mg elemental Zinc) Cap PO SCH (07:14)
[2021-07-18] MEDS: OXYBUTYNIN 10 MG PO SCH (07:14)
[2021-07-18] MEDS: Lactobacillus Rhamnosus GG (Probiotic) Cap PO SCH (07:14)
[2021-07-18] MEDS: BACLOFEN 10 MG PO SCH ×3 (07:14→19:51)
[2021-07-18] MEDS: Ascorbic Acid 500 MG Tab PO SCH (07:15)
[2021-07-18] MEDS: Cyanocobalamin (Vitamin B12) 250 MCG Tab PO SCH (07:15)
[2021-07-18] MEDS: Cholecalciferol (Vitamin D3) 25 MCG Tab PO SCH (07:15)
[2021-07-18] MEDS: Acetaminophen 325 MG Tab PO SCH ×2 (07:15→19:51)
[2021-07-19] MEDS: OXYBUTYNIN 10 MG PO SCH (07:22)
[2021-07-19] MEDS: BACLOFEN 10 MG PO SCH ×3 (07:22→20:04)
[2021-07-19] MEDS: Ascorbic Acid 500 MG Tab PO SCH (07:23)
[2021-07-19] MEDS: Acetaminophen 325 MG Tab PO SCH ×2 (07:23→20:05)
[2021-07-19] MEDS: Cyanocobalamin (Vitamin B12) 250 MCG Tab PO SCH (07:23)
[2021-07-19] MEDS: Lactobacillus Rhamnosus GG (Probiotic) Cap PO SCH (07:23)
[2021-07-19] MEDS: Zinc Sulfate 220 MG (50mg elemental Zinc) Cap PO SCH (07:23)
[2021-07-19] MEDS: Multivitamins with Iron/Calcium/Folic Acid/Minerals Tab PO SCH (07:23)
[2021-07-19] MEDS: Cholecalciferol (Vitamin D3) 25 MCG Tab PO SCH (07:23)
[2021-07-20] MEDS: Zinc Sulfate 220 MG (50mg elemental Zinc) Cap PO SCH (07:27)
[2021-07-20] MEDS: BACLOFEN 10 MG PO SCH ×3 (07:27→20:04)
[2021-07-20] MEDS: Ascorbic Acid 500 MG Tab PO SCH (07:27)
[2021-07-20] MEDS: Cholecalciferol (Vitamin D3) 25 MCG Tab PO SCH (07:27)
[2021-07-20] MEDS: OXYBUTYNIN 10 MG PO SCH (07:27)
[2021-07-20] MEDS: Multivitamins with Iron/Calcium/Folic Acid/Minerals Tab PO SCH (07:27)
[2021-07-20] MEDS: Cyanocobalamin (Vitamin B12) 250 MCG Tab PO SCH (07:27)
[2021-07-20] MEDS: Lactobacillus Rhamnosus GG (Probiotic) Cap PO SCH (07:27)
[2021-07-20] MEDS: Acetaminophen 325 MG Tab PO SCH ×2 (07:28→20:05)
[2021-07-21] MEDS: Lactobacillus Rhamnosus GG (Probiotic) Cap PO SCH (07:53)
[2021-07-21] MEDS: OXYBUTYNIN 10 MG PO SCH (07:53)
[2021-07-21] MEDS: BACLOFEN 10 MG PO SCH ×3 (07:53→19:29)
[2021-07-21] MEDS: Cyanocobalamin (Vitamin B12) 250 MCG Tab PO SCH (07:54)
[2021-07-21] MEDS: Cholecalciferol (Vitamin D3) 25 MCG Tab PO SCH (07:54)
[2021-07-21] MEDS: Zinc Sulfate 220 MG (50mg elemental Zinc) Cap PO SCH (07:54)
[2021-07-21] MEDS: Acetaminophen 325 MG Tab PO SCH ×2 (07:55→19:28)
[2021-07-21] MEDS: Ascorbic Acid 500 MG Tab PO SCH (07:55)
[2021-07-21] MEDS: Multivitamins with Iron/Calcium/Folic Acid/Minerals Tab PO SCH (07:55)
[2021-07-22] MEDS: Lactobacillus Rhamnosus GG (Probiotic) Cap PO SCH (09:20)
[2021-07-22] MEDS: Cholecalciferol (Vitamin D3) 25 MCG Tab PO SCH (09:21)
[2021-07-22] MEDS: Ascorbic Acid 500 MG Tab PO SCH (09:21)
[2021-07-22] MEDS: Acetaminophen 325 MG Tab PO SCH ×2 (09:21→19:27)
[2021-07-22] MEDS: OXYBUTYNIN 10 MG PO SCH (09:21)
[2021-07-22] MEDS: Cyanocobalamin (Vitamin B12) 250 MCG Tab PO SCH (09:21)
[2021-07-22] MEDS: BACLOFEN 10 MG PO SCH ×3 (09:21→19:27)
[2021-07-22] MEDS: Multivitamins with Iron/Calcium/Folic Acid/Minerals Tab PO SCH (09:21)
[2021-07-22] MEDS: Zinc Sulfate 220 MG (50mg elemental Zinc) Cap PO SCH (09:21)
[2021-07-23] MEDS: OXYBUTYNIN 10 MG PO SCH (08:03)
[2021-07-23] MEDS: BACLOFEN 10 MG PO SCH ×3 (08:03→19:46)
[2021-07-23] MEDS: Acetaminophen 325 MG Tab PO SCH ×2 (08:04→19:46)
[2021-07-23] MEDS: Cholecalciferol (Vitamin D3) 25 MCG Tab PO SCH (08:04)
[2021-07-23] MEDS: Lactobacillus Rhamnosus GG (Probiotic) Cap PO SCH (08:04)
[2021-07-23] MEDS: Multivitamins with Iron/Calcium/Folic Acid/Minerals Tab PO SCH (08:04)
[2021-07-23] MEDS: Ascorbic Acid 500 MG Tab PO SCH (08:04)
[2021-07-23] MEDS: Cyanocobalamin (Vitamin B12) 250 MCG Tab PO SCH (08:04)
[2021-07-23] MEDS: Zinc Sulfate 220 MG (50mg elemental Zinc) Cap PO SCH (08:04)
[2021-07-23] MEDS: [UNRECOGNIZED DRUG - OTHER] SUBCUT SCH (16:41)
[2021-07-24] MEDS: OXYBUTYNIN 10 MG PO SCH (07:28)
[2021-07-24] MEDS: BACLOFEN 10 MG PO SCH ×3 (07:28→20:33)
[2021-07-24] MEDS: Lactobacillus Rhamnosus GG (Probiotic) Cap PO SCH (07:29)
[2021-07-24] MEDS: Multivitamins with Iron/Calcium/Folic Acid/Minerals Tab PO SCH (07:29)
[2021-07-24] MEDS: Acetaminophen 325 MG Tab PO SCH ×2 (07:29→20:33)
[2021-07-24] MEDS: Cholecalciferol (Vitamin D3) 25 MCG Tab PO SCH (07:29)
[2021-07-24] MEDS: Cyanocobalamin (Vitamin B12) 250 MCG Tab PO SCH (07:29)
[2021-07-24] MEDS: Ascorbic Acid 500 MG Tab PO SCH (07:29)
[2021-07-24] MEDS: Zinc Sulfate 220 MG (50mg elemental Zinc) Cap PO SCH (07:29)
[2021-07-25] MEDS: BACLOFEN 10 MG PO SCH ×3 (07:46→20:50)
[2021-07-25] MEDS: OXYBUTYNIN 10 MG PO SCH (07:46)
[2021-07-25] MEDS: Acetaminophen 325 MG Tab PO SCH ×2 (07:47→20:50)
[2021-07-25] MEDS: Zinc Sulfate 220 MG (50mg elemental Zinc) Cap PO SCH (07:47)
[2021-07-25] MEDS: Multivitamins with Iron/Calcium/Folic Acid/Minerals Tab PO SCH (07:47)
[2021-07-25] MEDS: Lactobacillus Rhamnosus GG (Probiotic) Cap PO SCH (07:47)
[2021-07-25] MEDS: Cholecalciferol (Vitamin D3) 25 MCG Tab PO SCH (07:48)
[2021-07-25] MEDS: Cyanocobalamin (Vitamin B12) 250 MCG Tab PO SCH (07:48)
[2021-07-25] MEDS: Ascorbic Acid 500 MG Tab PO SCH (07:48)
[2021-07-26] MEDS: Lactobacillus Rhamnosus GG (Probiotic) Cap PO SCH (11:57)
[2021-07-26] MEDS: Cyanocobalamin (Vitamin B12) 250 MCG Tab PO SCH (11:57)
[2021-07-26] MEDS: Cholecalciferol (Vitamin D3) 25 MCG Tab PO SCH (11:57)
[2021-07-26] MEDS: Multivitamins with Iron/Calcium/Folic Acid/Minerals Tab PO SCH (11:57)
[2021-07-26] MEDS: Zinc Sulfate 220 MG (50mg elemental Zinc) Cap PO SCH (11:57)
[2021-07-26] MEDS: Ascorbic Acid 500 MG Tab PO SCH (11:57)
[2021-07-26] MEDS: OXYBUTYNIN 10 MG PO SCH (11:58)
[2021-07-26] MEDS: BACLOFEN 10 MG PO SCH ×3 (11:58→19:46)
[2021-07-26] MEDS: Acetaminophen 325 MG Tab PO SCH ×2 (12:02→19:47)
[2021-07-27] MEDS: BACLOFEN 10 MG PO SCH ×3 (07:28→19:33)
[2021-07-27] MEDS: OXYBUTYNIN 10 MG PO SCH (07:28)
[2021-07-27] MEDS: Zinc Sulfate 220 MG (50mg elemental Zinc) Cap PO SCH (07:29)
[2021-07-27] MEDS: Cholecalciferol (Vitamin D3) 25 MCG Tab PO SCH (07:29)
[2021-07-27] MEDS: Lactobacillus Rhamnosus GG (Probiotic) Cap PO SCH (07:29)
[2021-07-27] MEDS: Ascorbic Acid 500 MG Tab PO SCH (07:29)
[2021-07-27] MEDS: Acetaminophen 325 MG Tab PO SCH ×2 (07:29→19:33)
[2021-07-27] MEDS: Multivitamins with Iron/Calcium/Folic Acid/Minerals Tab PO SCH (07:29)
[2021-07-27] MEDS: Cyanocobalamin (Vitamin B12) 250 MCG Tab PO SCH (07:29)
[2021-07-28] MEDS: BACLOFEN 10 MG PO SCH ×3 (07:45→19:33)
[2021-07-28] MEDS: OXYBUTYNIN 10 MG PO SCH (07:45)
[2021-07-28] MEDS: Cholecalciferol (Vitamin D3) 25 MCG Tab PO SCH (07:46)
[2021-07-28] MEDS: Ascorbic Acid 500 MG Tab PO SCH (07:46)
[2021-07-28] MEDS: Multivitamins with Iron/Calcium/Folic Acid/Minerals Tab PO SCH (07:46)
[2021-07-28] MEDS: Zinc Sulfate 220 MG (50mg elemental Zinc) Cap PO SCH (07:46)
[2021-07-28] MEDS: Cyanocobalamin (Vitamin B12) 250 MCG Tab PO SCH (07:46)
[2021-07-28] MEDS: Acetaminophen 325 MG Tab PO SCH ×2 (07:46→19:33)
[2021-07-28] MEDS: Lactobacillus Rhamnosus GG (Probiotic) Cap PO SCH (07:46)
[2021-07-29] MEDS: BACLOFEN 10 MG PO SCH ×3 (07:17→19:40)
[2021-07-29] MEDS: Zinc Sulfate 220 MG (50mg elemental Zinc) Cap PO SCH (07:17)
[2021-07-29] MEDS: OXYBUTYNIN 10 MG PO SCH (07:17)
[2021-07-29] MEDS: Acetaminophen 325 MG Tab PO SCH ×2 (07:17→19:40)
[2021-07-29] MEDS: Multivitamins with Iron/Calcium/Folic Acid/Minerals Tab PO SCH (07:17)
[2021-07-29] MEDS: Cholecalciferol (Vitamin D3) 25 MCG Tab PO SCH (07:17)
[2021-07-29] MEDS: Lactobacillus Rhamnosus GG (Probiotic) Cap PO SCH (07:17)
[2021-07-29] MEDS: Ascorbic Acid 500 MG Tab PO SCH (07:17)
[2021-07-29] MEDS: Cyanocobalamin (Vitamin B12) 250 MCG Tab PO SCH (07:17)
[2021-07-30] MEDS: BACLOFEN 10 MG PO SCH ×3 (07:29→19:12)
[2021-07-30] MEDS: Multivitamins with Iron/Calcium/Folic Acid/Minerals Tab PO SCH (07:29)
[2021-07-30] MEDS: Cyanocobalamin (Vitamin B12) 250 MCG Tab PO SCH (07:29)
[2021-07-30] MEDS: Lactobacillus Rhamnosus GG (Probiotic) Cap PO SCH (07:29)
[2021-07-30] MEDS: Zinc Sulfate 220 MG (50mg elemental Zinc) Cap PO SCH (07:29)
[2021-07-30] MEDS: OXYBUTYNIN 10 MG PO SCH (07:29)
[2021-07-30] MEDS: Ascorbic Acid 500 MG Tab PO SCH (07:30)
[2021-07-30] MEDS: Acetaminophen 325 MG Tab PO SCH ×2 (07:30→19:12)
[2021-07-30] MEDS: Cholecalciferol (Vitamin D3) 25 MCG Tab PO SCH (07:30)
[2021-07-31] MEDS: Acetaminophen 325 MG Tab PO SCH ×2 (07:32→19:23)
[2021-07-31] MEDS: Cholecalciferol (Vitamin D3) 25 MCG Tab PO SCH (07:32)
[2021-07-31] MEDS: Zinc Sulfate 220 MG (50mg elemental Zinc) Cap PO SCH (07:32)
[2021-07-31] MEDS: OXYBUTYNIN 10 MG PO SCH (07:32)
[2021-07-31] MEDS: Cyanocobalamin (Vitamin B12) 250 MCG Tab PO SCH (07:32)
[2021-07-31] MEDS: BACLOFEN 10 MG PO SCH ×3 (07:32→19:23)
[2021-07-31] MEDS: Ascorbic Acid 500 MG Tab PO SCH (07:32)
[2021-07-31] MEDS: Lactobacillus Rhamnosus GG (Probiotic) Cap PO SCH (07:32)
[2021-07-31] MEDS: Multivitamins with Iron/Calcium/Folic Acid/Minerals Tab PO SCH (07:32)
[2021-08-01] MEDS: BACLOFEN 10 MG PO SCH ×3 (07:21→19:31)
[2021-08-01] MEDS: OXYBUTYNIN 10 MG PO SCH (07:21)
[2021-08-01] MEDS: Ascorbic Acid 500 MG Tab PO SCH (07:22)
[2021-08-01] MEDS: Lactobacillus Rhamnosus GG (Probiotic) Cap PO SCH (07:22)
[2021-08-01] MEDS: Multivitamins with Iron/Calcium/Folic Acid/Minerals Tab PO SCH (07:22)
[2021-08-01] MEDS: Acetaminophen 325 MG Tab PO SCH ×2 (07:22→19:32)
[2021-08-01] MEDS: Cyanocobalamin (Vitamin B12) 250 MCG Tab PO SCH (07:22)
[2021-08-01] MEDS: Zinc Sulfate 220 MG (50mg elemental Zinc) Cap PO SCH (07:22)
[2021-08-01] MEDS: Cholecalciferol (Vitamin D3) 25 MCG Tab PO SCH (07:22)
[2021-08-02] MEDS: Cyanocobalamin (Vitamin B12) 250 MCG Tab PO SCH (07:08)
[2021-08-02] MEDS: BACLOFEN 10 MG PO SCH ×3 (07:08→19:49)
[2021-08-02] MEDS: OXYBUTYNIN 10 MG PO SCH (07:08)
[2021-08-02] MEDS: Cholecalciferol (Vitamin D3) 25 MCG Tab PO SCH (07:09)
[2021-08-02] MEDS: Zinc Sulfate 220 MG (50mg elemental Zinc) Cap PO SCH (07:09)
[2021-08-02] MEDS: Acetaminophen 325 MG Tab PO SCH ×2 (07:09→19:49)
[2021-08-02] MEDS: Ascorbic Acid 500 MG Tab PO SCH (07:09)
[2021-08-02] MEDS: Lactobacillus Rhamnosus GG (Probiotic) Cap PO SCH (07:09)
[2021-08-02] MEDS: Multivitamins with Iron/Calcium/Folic Acid/Minerals Tab PO SCH (07:13)
[2021-08-03] MEDS: OXYBUTYNIN 10 MG PO SCH ×2 (05:52→07:57)
[2021-08-03] MEDS: Lactobacillus Rhamnosus GG (Probiotic) Cap PO SCH ×2 (05:53→07:56)
[2021-08-03] MEDS: BACLOFEN 10 MG PO SCH ×4 (05:53→19:43)
[2021-08-03] MEDS: Multivitamins with Iron/Calcium/Folic Acid/Minerals Tab PO SCH ×2 (05:53→07:58)
[2021-08-03] MEDS: Cyanocobalamin (Vitamin B12) 250 MCG Tab PO SCH ×2 (05:53→07:59)
[2021-08-03] MEDS: Cholecalciferol (Vitamin D3) 25 MCG Tab PO SCH ×2 (05:53→07:59)
[2021-08-03] MEDS: Acetaminophen 325 MG Tab PO SCH ×3 (05:54→19:44)
[2021-08-03] MEDS: Ascorbic Acid 500 MG Tab PO SCH ×2 (05:54→07:59)
[2021-08-03] MEDS: Zinc Sulfate 220 MG (50mg elemental Zinc) Cap PO SCH ×2 (05:54→07:59)
[2021-08-04] MEDS: Cyanocobalamin (Vitamin B12) 250 MCG Tab PO SCH (07:13)
[2021-08-04] MEDS: BACLOFEN 10 MG PO SCH ×3 (07:13→19:57)
[2021-08-04] MEDS: Cholecalciferol (Vitamin D3) 25 MCG Tab PO SCH (07:13)
[2021-08-04] MEDS: Multivitamins with Iron/Calcium/Folic Acid/Minerals Tab PO SCH (07:13)
[2021-08-04] MEDS: Zinc Sulfate 220 MG (50mg elemental Zinc) Cap PO SCH (07:13)
[2021-08-04] MEDS: OXYBUTYNIN 10 MG PO SCH (07:13)
[2021-08-04] MEDS: Ascorbic Acid 500 MG Tab PO SCH (07:13)
[2021-08-04] MEDS: Lactobacillus Rhamnosus GG (Probiotic) Cap PO SCH (07:13)
[2021-08-04] MEDS: Acetaminophen 325 MG Tab PO SCH ×2 (07:14→19:56)
[2021-08-05] MEDS: Lactobacillus Rhamnosus GG (Probiotic) Cap PO SCH (08:12)
[2021-08-05] MEDS: Cyanocobalamin (Vitamin B12) 250 MCG Tab PO SCH (08:12)
[2021-08-05] MEDS: Acetaminophen 325 MG Tab PO SCH ×2 (08:12→19:45)
[2021-08-05] MEDS: Zinc Sulfate 220 MG (50mg elemental Zinc) Cap PO SCH (08:13)
[2021-08-05] MEDS: Multivitamins with Iron/Calcium/Folic Acid/Minerals Tab PO SCH (08:13)
[2021-08-05] MEDS: OXYBUTYNIN 10 MG PO SCH (08:13)
[2021-08-05] MEDS: Ascorbic Acid 500 MG Tab PO SCH (08:13)
[2021-08-05] MEDS: BACLOFEN 10 MG PO SCH ×3 (08:14→19:45)
[2021-08-05] MEDS: Cholecalciferol (Vitamin D3) 25 MCG Tab PO SCH (08:14)
[2021-08-06] MEDS: Lactobacillus Rhamnosus GG (Probiotic) Cap PO SCH (09:03)
[2021-08-06] MEDS: Multivitamins with Iron/Calcium/Folic Acid/Minerals Tab PO SCH (09:03)
[2021-08-06] MEDS: Cholecalciferol (Vitamin D3) 25 MCG Tab PO SCH (09:03)
[2021-08-06] MEDS: Acetaminophen 325 MG Tab PO SCH ×2 (09:04→19:31)
[2021-08-06] MEDS: Ascorbic Acid 500 MG Tab PO SCH (09:04)
[2021-08-06] MEDS: Zinc Sulfate 220 MG (50mg elemental Zinc) Cap PO SCH (09:04)
[2021-08-06] MEDS: Cyanocobalamin (Vitamin B12) 250 MCG Tab PO SCH (09:04)
[2021-08-06] MEDS: OXYBUTYNIN 10 MG PO SCH (09:05)
[2021-08-06] MEDS: BACLOFEN 10 MG PO SCH ×3 (09:06→19:30)
[2021-08-07] MEDS: Cyanocobalamin (Vitamin B12) 250 MCG Tab PO SCH (08:53)
[2021-08-07] MEDS: Cholecalciferol (Vitamin D3) 25 MCG Tab PO SCH (08:53)
[2021-08-07] MEDS: Acetaminophen 325 MG Tab PO SCH ×2 (08:54→19:33)
[2021-08-07] MEDS: OXYBUTYNIN 10 MG PO SCH (08:54)
[2021-08-07] MEDS: Ascorbic Acid 500 MG Tab PO SCH (08:54)
[2021-08-07] MEDS: Lactobacillus Rhamnosus GG (Probiotic) Cap PO SCH (08:54)
[2021-08-07] MEDS: Multivitamins with Iron/Calcium/Folic Acid/Minerals Tab PO SCH (08:54)
[2021-08-07] MEDS: BACLOFEN 10 MG PO SCH ×3 (08:55→19:34)
[2021-08-07] MEDS: Zinc Sulfate 220 MG (50mg elemental Zinc) Cap PO SCH (08:55)
[2021-08-08] MEDS: Cyanocobalamin (Vitamin B12) 250 MCG Tab PO SCH (09:13)
[2021-08-08] MEDS: Cholecalciferol (Vitamin D3) 25 MCG Tab PO SCH (09:13)
[2021-08-08] MEDS: Lactobacillus Rhamnosus GG (Probiotic) Cap PO SCH (09:14)
[2021-08-08] MEDS: Zinc Sulfate 220 MG (50mg elemental Zinc) Cap PO SCH (09:14)
[2021-08-08] MEDS: Ascorbic Acid 500 MG Tab PO SCH (09:14)
[2021-08-08] MEDS: Multivitamins with Iron/Calcium/Folic Acid/Minerals Tab PO SCH (09:14)
[2021-08-08] MEDS: Acetaminophen 325 MG Tab PO SCH ×2 (09:14→20:32)
[2021-08-08] MEDS: OXYBUTYNIN 10 MG PO SCH (09:15)
[2021-08-08] MEDS: BACLOFEN 10 MG PO SCH ×3 (09:15→20:31)
[2021-08-09] MEDS: OXYBUTYNIN 10 MG PO SCH ×7 (07:08→13:17)
[2021-08-09] MEDS: BACLOFEN 10 MG PO SCH ×9 (07:08→21:24)
[2021-08-09] MEDS: Ascorbic Acid 500 MG Tab PO SCH ×7 (07:09→13:16)
[2021-08-09] MEDS: Zinc Sulfate 220 MG (50mg elemental Zinc) Cap PO SCH ×6 (07:09→13:16)
[2021-08-09] MEDS: Cyanocobalamin (Vitamin B12) 250 MCG Tab PO SCH ×6 (07:09→13:16)
[2021-08-09] MEDS: Acetaminophen 325 MG Tab PO SCH ×11 (07:09→21:24)
[2021-08-09] MEDS: Lactobacillus Rhamnosus GG (Probiotic) Cap PO SCH ×7 (07:09→13:18)
[2021-08-09] MEDS: Multivitamins with Iron/Calcium/Folic Acid/Minerals Tab PO SCH ×7 (07:09→13:17)
[2021-08-09] MEDS: Cholecalciferol (Vitamin D3) 25 MCG Tab PO SCH ×6 (07:09→13:16)
[2021-08-10] MEDS: OXYBUTYNIN 10 MG PO SCH (08:01)
[2021-08-10] MEDS: Zinc Sulfate 220 MG (50mg elemental Zinc) Cap PO SCH (08:01)
[2021-08-10] MEDS: BACLOFEN 10 MG PO SCH ×3 (08:01→21:27)
[2021-08-10] MEDS: Multivitamins with Iron/Calcium/Folic Acid/Minerals Tab PO SCH (08:02)
[2021-08-10] MEDS: Lactobacillus Rhamnosus GG (Probiotic) Cap PO SCH (08:02)
[2021-08-10] MEDS: Cyanocobalamin (Vitamin B12) 250 MCG Tab PO SCH (08:02)
[2021-08-10] MEDS: Cholecalciferol (Vitamin D3) 25 MCG Tab PO SCH (08:03)
[2021-08-10] MEDS: Acetaminophen 325 MG Tab PO SCH ×2 (08:03→21:27)
[2021-08-10] MEDS: Ascorbic Acid 500 MG Tab PO SCH (08:03)
[2021-08-11] MEDS: OXYBUTYNIN 10 MG PO SCH (08:23)
[2021-08-11] MEDS: BACLOFEN 10 MG PO SCH ×3 (08:23→20:17)
[2021-08-11] MEDS: Cyanocobalamin (Vitamin B12) 250 MCG Tab PO SCH (08:24)
[2021-08-11] MEDS: Zinc Sulfate 220 MG (50mg elemental Zinc) Cap PO SCH (08:24)
[2021-08-11] MEDS: Lactobacillus Rhamnosus GG (Probiotic) Cap PO SCH (08:24)
[2021-08-11] MEDS: Ascorbic Acid 500 MG Tab PO SCH (08:24)
[2021-08-11] MEDS: Multivitamins with Iron/Calcium/Folic Acid/Minerals Tab PO SCH (08:24)
[2021-08-11] MEDS: Cholecalciferol (Vitamin D3) 25 MCG Tab PO SCH (08:24)
[2021-08-11] MEDS: Acetaminophen 325 MG Tab PO SCH ×2 (08:25→20:17)
[2021-08-12] MEDS: OXYBUTYNIN 10 MG PO SCH (08:03)
[2021-08-12] MEDS: BACLOFEN 10 MG PO SCH ×3 (08:03→21:34)
[2021-08-12] MEDS: Lactobacillus Rhamnosus GG (Probiotic) Cap PO SCH (08:04)
[2021-08-12] MEDS: Acetaminophen 325 MG Tab PO SCH ×2 (08:04→21:34)
[2021-08-12] MEDS: Cholecalciferol (Vitamin D3) 25 MCG Tab PO SCH (08:04)
[2021-08-12] MEDS: Cyanocobalamin (Vitamin B12) 250 MCG Tab PO SCH (08:04)
[2021-08-12] MEDS: Ascorbic Acid 500 MG Tab PO SCH (08:04)
[2021-08-12] MEDS: Zinc Sulfate 220 MG (50mg elemental Zinc) Cap PO SCH (08:04)
[2021-08-12] MEDS: Multivitamins with Iron/Calcium/Folic Acid/Minerals Tab PO SCH (08:04)
[2021-08-13] MEDS: BACLOFEN 10 MG PO SCH ×3 (08:36→21:42)
[2021-08-13] MEDS: OXYBUTYNIN 10 MG PO SCH (08:36)
[2021-08-13] MEDS: Cyanocobalamin (Vitamin B12) 250 MCG Tab PO SCH (08:36)
[2021-08-13] MEDS: Cholecalciferol (Vitamin D3) 25 MCG Tab PO SCH (08:37)
[2021-08-13] MEDS: Zinc Sulfate 220 MG (50mg elemental Zinc) Cap PO SCH (08:37)
[2021-08-13] MEDS: Multivitamins with Iron/Calcium/Folic Acid/Minerals Tab PO SCH (08:37)
[2021-08-13] MEDS: Ascorbic Acid 500 MG Tab PO SCH (08:37)
[2021-08-13] MEDS: Lactobacillus Rhamnosus GG (Probiotic) Cap PO SCH (08:37)
[2021-08-13] MEDS: Acetaminophen 325 MG Tab PO SCH ×2 (08:39→21:42)
[2021-08-14] MEDS: OXYBUTYNIN 10 MG PO SCH (09:33)
[2021-08-14] MEDS: BACLOFEN 10 MG PO SCH ×3 (09:33→20:36)
[2021-08-14] MEDS: Cholecalciferol (Vitamin D3) 25 MCG Tab PO SCH (09:34)
[2021-08-14] MEDS: Cyanocobalamin (Vitamin B12) 250 MCG Tab PO SCH (09:34)
[2021-08-14] MEDS: Zinc Sulfate 220 MG (50mg elemental Zinc) Cap PO SCH (09:34)
[2021-08-14] MEDS: Acetaminophen 325 MG Tab PO SCH ×2 (09:35→20:36)
[2021-08-14] MEDS: Lactobacillus Rhamnosus GG (Probiotic) Cap PO SCH (09:35)
[2021-08-14] MEDS: Multivitamins with Iron/Calcium/Folic Acid/Minerals Tab PO SCH (09:35)
[2021-08-14] MEDS: Ascorbic Acid 500 MG Tab PO SCH (09:39)
[2021-08-15] MEDS: Lactobacillus Rhamnosus GG (Probiotic) Cap PO SCH (10:04)
[2021-08-15] MEDS: Acetaminophen 325 MG Tab PO SCH ×2 (10:05→20:43)
[2021-08-15] MEDS: Ascorbic Acid 500 MG Tab PO SCH (10:06)
[2021-08-15] MEDS: Multivitamins with Iron/Calcium/Folic Acid/Minerals Tab PO SCH (10:06)
[2021-08-15] MEDS: OXYBUTYNIN 10 MG PO SCH (10:10)
[2021-08-15] MEDS: BACLOFEN 10 MG PO SCH ×3 (10:12→20:43)
[2021-08-15] MEDS: Cholecalciferol (Vitamin D3) 25 MCG Tab PO SCH (13:55)
[2021-08-15] MEDS: Cyanocobalamin (Vitamin B12) 250 MCG Tab PO SCH (13:56)
[2021-08-15] MEDS: Zinc Sulfate 220 MG (50mg elemental Zinc) Cap PO SCH (13:56)
[2021-08-16] MEDS: OXYBUTYNIN 10 MG PO SCH (09:22)
[2021-08-16] MEDS: BACLOFEN 10 MG PO SCH ×3 (09:22→20:36)
[2021-08-16] MEDS: Multivitamins with Iron/Calcium/Folic Acid/Minerals Tab PO SCH (09:23)
[2021-08-16] MEDS: Ascorbic Acid 500 MG Tab PO SCH (09:23)
[2021-08-16] MEDS: Zinc Sulfate 220 MG (50mg elemental Zinc) Cap PO SCH (09:23)
[2021-08-16] MEDS: Lactobacillus Rhamnosus GG (Probiotic) Cap PO SCH (09:23)
[2021-08-16] MEDS: Acetaminophen 325 MG Tab PO SCH ×2 (09:23→20:36)
[2021-08-16] MEDS: Cyanocobalamin (Vitamin B12) 250 MCG Tab PO SCH (09:23)
[2021-08-16] MEDS: Cholecalciferol (Vitamin D3) 25 MCG Tab PO SCH (09:24)
[2021-08-17] MEDS: Cholecalciferol (Vitamin D3) 25 MCG Tab PO SCH (08:30)
[2021-08-17] MEDS: Zinc Sulfate 220 MG (50mg elemental Zinc) Cap PO SCH (08:30)
[2021-08-17] MEDS: Cyanocobalamin (Vitamin B12) 250 MCG Tab PO SCH (08:30)
[2021-08-17] MEDS: Lactobacillus Rhamnosus GG (Probiotic) Cap PO SCH (08:30)
[2021-08-17] MEDS: Multivitamins with Iron/Calcium/Folic Acid/Minerals Tab PO SCH (08:31)
[2021-08-17] MEDS: OXYBUTYNIN 10 MG PO SCH (08:31)
[2021-08-17] MEDS: Ascorbic Acid 500 MG Tab PO SCH (08:31)
[2021-08-17] MEDS: Acetaminophen 325 MG Tab PO SCH ×2 (08:31→21:14)
[2021-08-17] MEDS: BACLOFEN 10 MG PO SCH ×3 (08:32→21:15)
[2021-08-18] MEDS: Cyanocobalamin (Vitamin B12) 250 MCG Tab PO SCH (08:02)
[2021-08-18] MEDS: BACLOFEN 10 MG PO SCH ×3 (08:02→20:35)
[2021-08-18] MEDS: OXYBUTYNIN 10 MG PO SCH (08:02)
[2021-08-18] MEDS: Acetaminophen 325 MG Tab PO SCH ×2 (08:02→20:35)
[2021-08-18] MEDS: Multivitamins with Iron/Calcium/Folic Acid/Minerals Tab PO SCH (08:03)
[2021-08-18] MEDS: Zinc Sulfate 220 MG (50mg elemental Zinc) Cap PO SCH (08:03)
[2021-08-18] MEDS: Lactobacillus Rhamnosus GG (Probiotic) Cap PO SCH (08:03)
[2021-08-18] MEDS: Ascorbic Acid 500 MG Tab PO SCH (08:03)
[2021-08-18] MEDS: Cholecalciferol (Vitamin D3) 25 MCG Tab PO SCH (08:04)
[2021-08-19] MEDS: BACLOFEN 10 MG PO SCH ×3 (08:42→21:35)
[2021-08-19] MEDS: OXYBUTYNIN 10 MG PO SCH (08:42)
[2021-08-19] MEDS: Cyanocobalamin (Vitamin B12) 250 MCG Tab PO SCH (08:43)
[2021-08-19] MEDS: Ascorbic Acid 500 MG Tab PO SCH (08:43)
[2021-08-19] MEDS: Zinc Sulfate 220 MG (50mg elemental Zinc) Cap PO SCH (08:43)
[2021-08-19] MEDS: Lactobacillus Rhamnosus GG (Probiotic) Cap PO SCH (08:43)
[2021-08-19] MEDS: Acetaminophen 325 MG Tab PO SCH ×2 (08:43→21:33)
[2021-08-19] MEDS: Multivitamins with Iron/Calcium/Folic Acid/Minerals Tab PO SCH (08:43)
[2021-08-19] MEDS: Cholecalciferol (Vitamin D3) 25 MCG Tab PO SCH (08:43)
[2021-08-20] MEDS: Lactobacillus Rhamnosus GG (Probiotic) Cap PO SCH (09:24)
[2021-08-20] MEDS: Ascorbic Acid 500 MG Tab PO SCH (09:24)
[2021-08-20] MEDS: Cyanocobalamin (Vitamin B12) 250 MCG Tab PO SCH (09:24)
[2021-08-20] MEDS: BACLOFEN 10 MG PO SCH ×3 (09:25→20:28)
[2021-08-20] MEDS: Multivitamins with Iron/Calcium/Folic Acid/Minerals Tab PO SCH (09:25)
[2021-08-20] MEDS: OXYBUTYNIN 10 MG PO SCH (09:25)
[2021-08-20] MEDS: Cholecalciferol (Vitamin D3) 25 MCG Tab PO SCH (09:25)
[2021-08-20] MEDS: Zinc Sulfate 220 MG (50mg elemental Zinc) Cap PO SCH (09:25)
[2021-08-20] MEDS: Acetaminophen 325 MG Tab PO SCH ×2 (09:26→20:27)
[2021-08-20] MEDS: [UNRECOGNIZED DRUG - OTHER] SUBCUT SCH (13:23)
[2021-08-21] MEDS: Cyanocobalamin (Vitamin B12) 250 MCG Tab PO SCH (09:00)
[2021-08-21] MEDS: Cholecalciferol (Vitamin D3) 25 MCG Tab PO SCH (09:01)
[2021-08-21] MEDS: Zinc Sulfate 220 MG (50mg elemental Zinc) Cap PO SCH (09:01)
[2021-08-21] MEDS: Acetaminophen 325 MG Tab PO SCH ×2 (09:01→20:39)
[2021-08-21] MEDS: Ascorbic Acid 500 MG Tab PO SCH (09:01)
[2021-08-21] MEDS: Lactobacillus Rhamnosus GG (Probiotic) Cap PO SCH (09:01)
[2021-08-21] MEDS: Multivitamins with Iron/Calcium/Folic Acid/Minerals Tab PO SCH (09:01)
[2021-08-21] MEDS: OXYBUTYNIN 10 MG PO SCH (09:02)
[2021-08-21] MEDS: BACLOFEN 10 MG PO SCH ×3 (09:02→20:38)
[2021-08-21] MEDS: Sulfamethoxazole/Trimethoprim 800-160 MG Tab PO SCH ×2 (16:14→20:38)
[2021-08-22] MEDS: Cholecalciferol (Vitamin D3) 25 MCG Tab PO SCH (08:10)
[2021-08-22] MEDS: Acetaminophen 325 MG Tab PO SCH ×2 (08:10→20:46)
[2021-08-22] MEDS: OXYBUTYNIN 10 MG PO SCH (08:11)
[2021-08-22] MEDS: Lactobacillus Rhamnosus GG (Probiotic) Cap PO SCH (08:11)
[2021-08-22] MEDS: Sulfamethoxazole/Trimethoprim 800-160 MG Tab PO SCH ×2 (08:11→20:47)
[2021-08-22] MEDS: Zinc Sulfate 220 MG (50mg elemental Zinc) Cap PO SCH (08:11)
[2021-08-22] MEDS: Ascorbic Acid 500 MG Tab PO SCH (08:11)
[2021-08-22] MEDS: Multivitamins with Iron/Calcium/Folic Acid/Minerals Tab PO SCH (08:11)
[2021-08-22] MEDS: Cyanocobalamin (Vitamin B12) 250 MCG Tab PO SCH (08:11)
[2021-08-22] MEDS: BACLOFEN 10 MG PO SCH ×3 (08:12→20:46)
[2021-08-23] MEDS: Acetaminophen 325 MG Tab PO SCH ×2 (08:06→20:00)
[2021-08-23] MEDS: Cholecalciferol (Vitamin D3) 25 MCG Tab PO SCH (08:06)
[2021-08-23] MEDS: Lactobacillus Rhamnosus GG (Probiotic) Cap PO SCH (08:06)
[2021-08-23] MEDS: Zinc Sulfate 220 MG (50mg elemental Zinc) Cap PO SCH (08:06)
[2021-08-23] MEDS: Sulfamethoxazole/Trimethoprim 800-160 MG Tab PO SCH ×2 (08:07→20:00)
[2021-08-23] MEDS: Multivitamins with Iron/Calcium/Folic Acid/Minerals Tab PO SCH (08:07)
[2021-08-23] MEDS: Cyanocobalamin (Vitamin B12) 250 MCG Tab PO SCH (08:07)
[2021-08-23] MEDS: Ascorbic Acid 500 MG Tab PO SCH (08:07)
[2021-08-23] MEDS: BACLOFEN 10 MG PO SCH ×3 (08:08→20:00)
[2021-08-23] MEDS: OXYBUTYNIN 10 MG PO SCH (08:08)
[2021-08-24] MEDS: Cyanocobalamin (Vitamin B12) 250 MCG Tab PO SCH (08:45)
[2021-08-24] MEDS: Ascorbic Acid 500 MG Tab PO SCH (08:46)
[2021-08-24] MEDS: Zinc Sulfate 220 MG (50mg elemental Zinc) Cap PO SCH (08:46)
[2021-08-24] MEDS: Multivitamins with Iron/Calcium/Folic Acid/Minerals Tab PO SCH (08:46)
[2021-08-24] MEDS: Acetaminophen 325 MG Tab PO SCH ×2 (08:46→20:18)
[2021-08-24] MEDS: Cholecalciferol (Vitamin D3) 25 MCG Tab PO SCH (08:46)
[2021-08-24] MEDS: Lactobacillus Rhamnosus GG (Probiotic) Cap PO SCH (08:46)
[2021-08-24] MEDS: BACLOFEN 10 MG PO SCH ×3 (08:48→20:18)
[2021-08-24] MEDS: OXYBUTYNIN 10 MG PO SCH (09:02)
[2021-08-25] MEDS: Cyanocobalamin (Vitamin B12) 250 MCG Tab PO SCH (08:16)
[2021-08-25] MEDS: Lactobacillus Rhamnosus GG (Probiotic) Cap PO SCH (08:16)
[2021-08-25] MEDS: Zinc Sulfate 220 MG (50mg elemental Zinc) Cap PO SCH (08:16)
[2021-08-25] MEDS: Multivitamins with Iron/Calcium/Folic Acid/Minerals Tab PO SCH (08:16)
[2021-08-25] MEDS: Acetaminophen 325 MG Tab PO SCH ×2 (08:17→20:41)
[2021-08-25] MEDS: Cholecalciferol (Vitamin D3) 25 MCG Tab PO SCH (08:17)
[2021-08-25] MEDS: BACLOFEN 10 MG PO SCH ×3 (08:17→20:41)
[2021-08-25] MEDS: OXYBUTYNIN 10 MG PO SCH (08:17)
[2021-08-25] MEDS: Ascorbic Acid 500 MG Tab PO SCH (08:17)
[2021-08-26] MEDS: Lactobacillus Rhamnosus GG (Probiotic) Cap PO SCH (10:00)
[2021-08-26] MEDS: Cyanocobalamin (Vitamin B12) 250 MCG Tab PO SCH (10:00)
[2021-08-26] MEDS: Cholecalciferol (Vitamin D3) 25 MCG Tab PO SCH (10:01)
[2021-08-26] MEDS: Acetaminophen 325 MG Tab PO SCH ×2 (10:01→20:29)
[2021-08-26] MEDS: Multivitamins with Iron/Calcium/Folic Acid/Minerals Tab PO SCH (10:01)
[2021-08-26] MEDS: Ascorbic Acid 500 MG Tab PO SCH (10:01)
[2021-08-26] MEDS: Zinc Sulfate 220 MG (50mg elemental Zinc) Cap PO SCH (10:01)
[2021-08-26] MEDS: BACLOFEN 10 MG PO SCH ×3 (10:02→20:29)
[2021-08-26] MEDS: OXYBUTYNIN 10 MG PO SCH (10:04)
[2021-08-27] MEDS: Multivitamins with Iron/Calcium/Folic Acid/Minerals Tab PO SCH (08:21)
[2021-08-27] MEDS: Cholecalciferol (Vitamin D3) 25 MCG Tab PO SCH (08:21)
[2021-08-27] MEDS: Cyanocobalamin (Vitamin B12) 250 MCG Tab PO SCH (08:22)
[2021-08-27] MEDS: OXYBUTYNIN 10 MG PO SCH (08:26)
[2021-08-27] MEDS: Zinc Sulfate 220 MG (50mg elemental Zinc) Cap PO SCH (08:26)
[2021-08-27] MEDS: BACLOFEN 10 MG PO SCH ×3 (08:27→20:09)
[2021-08-27] MEDS: Acetaminophen 325 MG Tab PO SCH ×2 (08:28→20:09)
[2021-08-27] MEDS: Ascorbic Acid 500 MG Tab PO SCH (15:59)
[2021-08-27] MEDS: Lactobacillus Rhamnosus GG (Probiotic) Cap PO SCH (16:07)
[2021-08-28] MEDS: Zinc Sulfate 220 MG (50mg elemental Zinc) Cap PO SCH (08:25)
[2021-08-28] MEDS: Acetaminophen 325 MG Tab PO SCH ×2 (08:25→20:50)
[2021-08-28] MEDS: Ascorbic Acid 500 MG Tab PO SCH (08:27)
[2021-08-28] MEDS: Lactobacillus Rhamnosus GG (Probiotic) Cap PO SCH (08:27)
[2021-08-28] MEDS: Cholecalciferol (Vitamin D3) 25 MCG Tab PO SCH (08:27)
[2021-08-28] MEDS: Cyanocobalamin (Vitamin B12) 250 MCG Tab PO SCH (08:27)
[2021-08-28] MEDS: Multivitamins with Iron/Calcium/Folic Acid/Minerals Tab PO SCH (08:28)
[2021-08-28] MEDS: OXYBUTYNIN 10 MG PO SCH (08:31)
[2021-08-28] MEDS: BACLOFEN 10 MG PO SCH ×3 (08:32→20:49)
[2021-08-29] MEDS: Cholecalciferol (Vitamin D3) 25 MCG Tab PO SCH (09:25)
[2021-08-29] MEDS: Zinc Sulfate 220 MG (50mg elemental Zinc) Cap PO SCH (09:26)
[2021-08-29] MEDS: Acetaminophen 325 MG Tab PO SCH ×2 (09:26→20:15)
[2021-08-29] MEDS: Cyanocobalamin (Vitamin B12) 250 MCG Tab PO SCH (09:26)
[2021-08-29] MEDS: Lactobacillus Rhamnosus GG (Probiotic) Cap PO SCH (09:27)
[2021-08-29] MEDS: Ascorbic Acid 500 MG Tab PO SCH (09:27)
[2021-08-29] MEDS: Multivitamins with Iron/Calcium/Folic Acid/Minerals Tab PO SCH (09:27)
[2021-08-29] MEDS: BACLOFEN 10 MG PO SCH ×3 (09:28→20:15)
[2021-08-29] MEDS: OXYBUTYNIN 10 MG PO SCH (09:29)
[2021-08-30] MEDS: Cyanocobalamin (Vitamin B12) 250 MCG Tab PO SCH (09:53)
[2021-08-30] MEDS: Cholecalciferol (Vitamin D3) 25 MCG Tab PO SCH (09:54)
[2021-08-30] MEDS: Ascorbic Acid 500 MG Tab PO SCH (09:54)
[2021-08-30] MEDS: Zinc Sulfate 220 MG (50mg elemental Zinc) Cap PO SCH (09:54)
[2021-08-30] MEDS: Lactobacillus Rhamnosus GG (Probiotic) Cap PO SCH (09:54)
[2021-08-30] MEDS: Acetaminophen 325 MG Tab PO SCH ×2 (09:54→21:22)
[2021-08-30] MEDS: Multivitamins with Iron/Calcium/Folic Acid/Minerals Tab PO SCH (09:54)
[2021-08-30] MEDS: OXYBUTYNIN 10 MG PO SCH (09:56)
[2021-08-30] MEDS: BACLOFEN 10 MG PO SCH ×3 (09:56→21:24)
[2021-08-31] MEDS: Ascorbic Acid 500 MG Tab PO SCH ×2 (05:49→17:05)
[2021-08-31] MEDS: Lactobacillus Rhamnosus GG (Probiotic) Cap PO SCH ×2 (05:49→17:04)
[2021-08-31] MEDS: Zinc Sulfate 220 MG (50mg elemental Zinc) Cap PO SCH ×2 (05:49→17:05)
[2021-08-31] MEDS: Acetaminophen 325 MG Tab PO PRN (05:50)
[2021-08-31] MEDS: Cholecalciferol (Vitamin D3) 25 MCG Tab PO SCH ×2 (05:51→17:05)
[2021-08-31] MEDS: Multivitamins with Iron/Calcium/Folic Acid/Minerals Tab PO SCH ×2 (05:51→17:04)
[2021-08-31] MEDS: Cyanocobalamin (Vitamin B12) 250 MCG Tab PO SCH ×2 (05:52→17:05)
[2021-08-31] MEDS: BACLOFEN 10 MG PO SCH ×3 (05:55→21:07)
[2021-08-31] MEDS: Acetaminophen 325 MG Tab PO SCH ×2 (17:04→21:06)
[2021-08-31] MEDS: OXYBUTYNIN 10 MG PO SCH (17:04)
[2021-09-01] MEDS: Cyanocobalamin (Vitamin B12) 250 MCG Tab PO SCH (09:02)
[2021-09-01] MEDS: Cholecalciferol (Vitamin D3) 25 MCG Tab PO SCH (09:02)
[2021-09-01] MEDS: Ascorbic Acid 500 MG Tab PO SCH (09:02)
[2021-09-01] MEDS: Lactobacillus Rhamnosus GG (Probiotic) Cap PO SCH (09:02)
[2021-09-01] MEDS: OXYBUTYNIN 10 MG PO SCH (09:03)
[2021-09-01] MEDS: Zinc Sulfate 220 MG (50mg elemental Zinc) Cap PO SCH (09:03)
[2021-09-01] MEDS: BACLOFEN 10 MG PO SCH ×3 (09:03→20:27)
[2021-09-01] MEDS: Multivitamins with Iron/Calcium/Folic Acid/Minerals Tab PO SCH (09:03)
[2021-09-01] MEDS: Acetaminophen 325 MG Tab PO SCH ×2 (09:04→20:26)
[2021-09-02] MEDS: Cyanocobalamin (Vitamin B12) 250 MCG Tab PO SCH (08:24)
[2021-09-02] MEDS: Ascorbic Acid 500 MG Tab PO SCH (08:24)
[2021-09-02] MEDS: Lactobacillus Rhamnosus GG (Probiotic) Cap PO SCH (08:24)
[2021-09-02] MEDS: Zinc Sulfate 220 MG (50mg elemental Zinc) Cap PO SCH (08:24)
[2021-09-02] MEDS: Cholecalciferol (Vitamin D3) 25 MCG Tab PO SCH (08:24)
[2021-09-02] MEDS: Multivitamins with Iron/Calcium/Folic Acid/Minerals Tab PO SCH (08:24)
[2021-09-02] MEDS: Acetaminophen 325 MG Tab PO SCH ×2 (08:25→21:04)
[2021-09-02] MEDS: BACLOFEN 10 MG PO SCH ×3 (08:26→21:04)
[2021-09-02] MEDS: OXYBUTYNIN 10 MG PO SCH (08:26)
[2021-09-03] MEDS: Cyanocobalamin (Vitamin B12) 250 MCG Tab PO SCH (08:11)
[2021-09-03] MEDS: Multivitamins with Iron/Calcium/Folic Acid/Minerals Tab PO SCH (08:11)
[2021-09-03] MEDS: Lactobacillus Rhamnosus GG (Probiotic) Cap PO SCH (08:11)
[2021-09-03] MEDS: Acetaminophen 325 MG Tab PO SCH ×2 (08:12→21:21)
[2021-09-03] MEDS: Ascorbic Acid 500 MG Tab PO SCH (08:12)
[2021-09-03] MEDS: Cholecalciferol (Vitamin D3) 25 MCG Tab PO SCH (08:12)
[2021-09-03] MEDS: Zinc Sulfate 220 MG (50mg elemental Zinc) Cap PO SCH (08:12)
[2021-09-03] MEDS: OXYBUTYNIN 10 MG PO SCH (08:14)
[2021-09-03] MEDS: BACLOFEN 10 MG PO SCH ×3 (08:15→21:51)
[2021-09-04] MEDS: Cholecalciferol (Vitamin D3) 25 MCG Tab PO SCH (08:30)
[2021-09-04] MEDS: Multivitamins with Iron/Calcium/Folic Acid/Minerals Tab PO SCH (08:31)
[2021-09-04] MEDS: Ascorbic Acid 500 MG Tab PO SCH (08:31)
[2021-09-04] MEDS: Lactobacillus Rhamnosus GG (Probiotic) Cap PO SCH (08:32)
[2021-09-04] MEDS: Zinc Sulfate 220 MG (50mg elemental Zinc) Cap PO SCH (08:32)
[2021-09-04] MEDS: Cyanocobalamin (Vitamin B12) 250 MCG Tab PO SCH (08:32)
[2021-09-04] MEDS: Acetaminophen 325 MG Tab PO SCH ×2 (08:33→20:40)
[2021-09-04] MEDS: OXYBUTYNIN 10 MG PO SCH (08:35)
[2021-09-04] MEDS: BACLOFEN 10 MG PO SCH ×3 (08:36→20:42)
[2021-09-05] MEDS: Multivitamins with Iron/Calcium/Folic Acid/Minerals Tab PO SCH (08:11)
[2021-09-05] MEDS: BACLOFEN 10 MG PO SCH ×3 (08:11→20:52)
[2021-09-05] MEDS: OXYBUTYNIN 10 MG PO SCH (08:11)
[2021-09-05] MEDS: Lactobacillus Rhamnosus GG (Probiotic) Cap PO SCH (08:12)
[2021-09-05] MEDS: Cyanocobalamin (Vitamin B12) 250 MCG Tab PO SCH (08:12)
[2021-09-05] MEDS: Cholecalciferol (Vitamin D3) 25 MCG Tab PO SCH (08:12)
[2021-09-05] MEDS: Acetaminophen 325 MG Tab PO SCH ×2 (08:13→20:52)
[2021-09-05] MEDS: Ascorbic Acid 500 MG Tab PO SCH (08:13)
[2021-09-05] MEDS: Zinc Sulfate 220 MG (50mg elemental Zinc) Cap PO SCH (08:13)
[2021-09-06] MEDS: Cholecalciferol (Vitamin D3) 25 MCG Tab PO SCH (09:32)
[2021-09-06] MEDS: Cyanocobalamin (Vitamin B12) 250 MCG Tab PO SCH (09:32)
[2021-09-06] MEDS: Lactobacillus Rhamnosus GG (Probiotic) Cap PO SCH (09:32)
[2021-09-06] MEDS: Ascorbic Acid 500 MG Tab PO SCH (09:33)
[2021-09-06] MEDS: OXYBUTYNIN 10 MG PO SCH (09:33)
[2021-09-06] MEDS: Zinc Sulfate 220 MG (50mg elemental Zinc) Cap PO SCH (09:33)
[2021-09-06] MEDS: Acetaminophen 325 MG Tab PO SCH ×2 (09:33→20:44)
[2021-09-06] MEDS: BACLOFEN 10 MG PO SCH ×2 (09:33→20:43)
[2021-09-07] MEDS: Cholecalciferol (Vitamin D3) 25 MCG Tab PO SCH (08:16)
[2021-09-07] MEDS: Cyanocobalamin (Vitamin B12) 250 MCG Tab PO SCH (08:16)
[2021-09-07] MEDS: Lactobacillus Rhamnosus GG (Probiotic) Cap PO SCH (08:16)
[2021-09-07] MEDS: Acetaminophen 325 MG Tab PO SCH ×2 (08:17→20:20)
[2021-09-07] MEDS: Ascorbic Acid 500 MG Tab PO SCH (08:17)
[2021-09-07] MEDS: Zinc Sulfate 220 MG (50mg elemental Zinc) Cap PO SCH (08:18)
[2021-09-07] MEDS: OXYBUTYNIN 10 MG PO SCH (08:19)
[2021-09-07] MEDS: Multivitamins with Iron/Calcium/Folic Acid/Minerals Tab PO SCH ×2 (08:19→10:54)
[2021-09-07] MEDS: BACLOFEN 10 MG PO SCH ×4 (10:31→20:20)
[2021-09-08] MEDS: Cholecalciferol (Vitamin D3) 25 MCG Tab PO SCH (08:54)
[2021-09-08] MEDS: Cyanocobalamin (Vitamin B12) 250 MCG Tab PO SCH (08:54)
[2021-09-08] MEDS: Multivitamins with Iron/Calcium/Folic Acid/Minerals Tab PO SCH (08:55)
[2021-09-08] MEDS: Acetaminophen 325 MG Tab PO SCH ×2 (08:55→20:19)
[2021-09-08] MEDS: Ascorbic Acid 500 MG Tab PO SCH (08:55)
[2021-09-08] MEDS: Zinc Sulfate 220 MG (50mg elemental Zinc) Cap PO SCH (08:55)
[2021-09-08] MEDS: Lactobacillus Rhamnosus GG (Probiotic) Cap PO SCH (08:55)
[2021-09-08] MEDS: BACLOFEN 10 MG PO SCH ×3 (08:57→20:18)
[2021-09-08] MEDS: OXYBUTYNIN 10 MG PO SCH (08:57)
[2021-09-09] MEDS: Cyanocobalamin (Vitamin B12) 250 MCG Tab PO SCH (09:03)
[2021-09-09] MEDS: Multivitamins with Iron/Calcium/Folic Acid/Minerals Tab PO SCH (09:03)
[2021-09-09] MEDS: Lactobacillus Rhamnosus GG (Probiotic) Cap PO SCH (09:03)
[2021-09-09] MEDS: Ascorbic Acid 500 MG Tab PO SCH (09:04)
[2021-09-09] MEDS: Acetaminophen 325 MG Tab PO SCH ×2 (09:04→20:44)
[2021-09-09] MEDS: Cholecalciferol (Vitamin D3) 25 MCG Tab PO SCH (09:04)
[2021-09-09] MEDS: Zinc Sulfate 220 MG (50mg elemental Zinc) Cap PO SCH (09:04)
[2021-09-09] MEDS: OXYBUTYNIN 10 MG PO SCH (09:05)
[2021-09-09] MEDS: BACLOFEN 10 MG PO SCH ×3 (09:05→20:44)
[2021-09-10] MEDS: Cyanocobalamin (Vitamin B12) 250 MCG Tab PO SCH (08:53)
[2021-09-10] MEDS: Multivitamins with Iron/Calcium/Folic Acid/Minerals Tab PO SCH (08:53)
[2021-09-10] MEDS: Ascorbic Acid 500 MG Tab PO SCH (08:54)
[2021-09-10] MEDS: Lactobacillus Rhamnosus GG (Probiotic) Cap PO SCH (08:54)
[2021-09-10] MEDS: Zinc Sulfate 220 MG (50mg elemental Zinc) Cap PO SCH (08:54)
[2021-09-10] MEDS: Cholecalciferol (Vitamin D3) 25 MCG Tab PO SCH (08:54)
[2021-09-10] MEDS: OXYBUTYNIN 10 MG PO SCH (08:55)
[2021-09-10] MEDS: BACLOFEN 10 MG PO SCH ×3 (08:55→20:55)
[2021-09-10] MEDS: Acetaminophen 325 MG Tab PO SCH ×2 (08:55→20:52)
[2021-09-11] MEDS: Acetaminophen 325 MG Tab PO SCH ×2 (09:07→20:56)
[2021-09-11] MEDS: Cholecalciferol (Vitamin D3) 25 MCG Tab PO SCH (09:08)
[2021-09-11] MEDS: Cyanocobalamin (Vitamin B12) 250 MCG Tab PO SCH (09:08)
[2021-09-11] MEDS: Multivitamins with Iron/Calcium/Folic Acid/Minerals Tab PO SCH (09:08)
[2021-09-11] MEDS: Lactobacillus Rhamnosus GG (Probiotic) Cap PO SCH (09:08)
[2021-09-11] MEDS: Ascorbic Acid 500 MG Tab PO SCH (09:08)
[2021-09-11] MEDS: Zinc Sulfate 220 MG (50mg elemental Zinc) Cap PO SCH (09:08)
[2021-09-11] MEDS: BACLOFEN 10 MG PO SCH ×3 (09:09→21:57)
[2021-09-11] MEDS: OXYBUTYNIN 10 MG PO SCH (09:09)
[2021-09-12] MEDS: Cholecalciferol (Vitamin D3) 25 MCG Tab PO SCH (09:40)
[2021-09-12] MEDS: Multivitamins with Iron/Calcium/Folic Acid/Minerals Tab PO SCH (09:40)
[2021-09-12] MEDS: Cyanocobalamin (Vitamin B12) 250 MCG Tab PO SCH (09:40)
[2021-09-12] MEDS: Zinc Sulfate 220 MG (50mg elemental Zinc) Cap PO SCH (09:40)
[2021-09-12] MEDS: Lactobacillus Rhamnosus GG (Probiotic) Cap PO SCH (09:41)
[2021-09-12] MEDS: Acetaminophen 325 MG Tab PO SCH ×2 (09:41→21:02)
[2021-09-12] MEDS: OXYBUTYNIN 10 MG PO SCH (09:41)
[2021-09-12] MEDS: Ascorbic Acid 500 MG Tab PO SCH (09:41)
[2021-09-12] MEDS: BACLOFEN 10 MG PO SCH ×3 (09:42→21:02)
[2021-09-13] MEDS: Cyanocobalamin (Vitamin B12) 250 MCG Tab PO SCH (08:25)
[2021-09-13] MEDS: Multivitamins with Iron/Calcium/Folic Acid/Minerals Tab PO SCH (08:25)
[2021-09-13] MEDS: Ascorbic Acid 500 MG Tab PO SCH (08:25)
[2021-09-13] MEDS: Acetaminophen 325 MG Tab PO SCH ×2 (08:25→20:51)
[2021-09-13] MEDS: Zinc Sulfate 220 MG (50mg elemental Zinc) Cap PO SCH (08:25)
[2021-09-13] MEDS: Cholecalciferol (Vitamin D3) 25 MCG Tab PO SCH (08:25)
[2021-09-13] MEDS: Lactobacillus Rhamnosus GG (Probiotic) Cap PO SCH (08:27)
[2021-09-13] MEDS: OXYBUTYNIN 10 MG PO SCH (08:27)
[2021-09-13] MEDS: BACLOFEN 10 MG PO SCH ×3 (08:27→20:53)
[2021-09-14] MEDS: Cyanocobalamin (Vitamin B12) 250 MCG Tab PO SCH (08:27)
[2021-09-14] MEDS: Cholecalciferol (Vitamin D3) 25 MCG Tab PO SCH (08:27)
[2021-09-14] MEDS: Ascorbic Acid 500 MG Tab PO SCH (08:28)
[2021-09-14] MEDS: Zinc Sulfate 220 MG (50mg elemental Zinc) Cap PO SCH (08:28)
[2021-09-14] MEDS: Multivitamins with Iron/Calcium/Folic Acid/Minerals Tab PO SCH (08:28)
[2021-09-14] MEDS: Acetaminophen 325 MG Tab PO SCH ×2 (08:28→20:49)
[2021-09-14] MEDS: BACLOFEN 10 MG PO SCH ×3 (08:29→20:50)
[2021-09-14] MEDS: OXYBUTYNIN 10 MG PO SCH (08:29)
[2021-09-14] MEDS: Lactobacillus Rhamnosus GG (Probiotic) Cap PO SCH (08:31)
[2021-09-15] MEDS: Acetaminophen 325 MG Tab PO SCH ×2 (08:33→20:40)
[2021-09-15] MEDS: Ascorbic Acid 500 MG Tab PO SCH (08:34)
[2021-09-15] MEDS: Zinc Sulfate 220 MG (50mg elemental Zinc) Cap PO SCH (08:34)
[2021-09-15] MEDS: Cholecalciferol (Vitamin D3) 25 MCG Tab PO SCH (08:34)
[2021-09-15] MEDS: Cyanocobalamin (Vitamin B12) 250 MCG Tab PO SCH (08:34)
[2021-09-15] MEDS: Lactobacillus Rhamnosus GG (Probiotic) Cap PO SCH (08:34)
[2021-09-15] MEDS: Multivitamins with Iron/Calcium/Folic Acid/Minerals Tab PO SCH (08:34)
[2021-09-15] MEDS: BACLOFEN 10 MG PO SCH ×3 (08:36→20:41)
[2021-09-15] MEDS: OXYBUTYNIN 10 MG PO SCH (08:36)
[2021-09-16] MEDS: Acetaminophen 325 MG Tab PO SCH ×2 (08:40→20:34)
[2021-09-16] MEDS: Multivitamins with Iron/Calcium/Folic Acid/Minerals Tab PO SCH (08:40)
[2021-09-16] MEDS: Ascorbic Acid 500 MG Tab PO SCH (08:40)
[2021-09-16] MEDS: Zinc Sulfate 220 MG (50mg elemental Zinc) Cap PO SCH (08:40)
[2021-09-16] MEDS: Cyanocobalamin (Vitamin B12) 250 MCG Tab PO SCH (08:41)
[2021-09-16] MEDS: Cholecalciferol (Vitamin D3) 25 MCG Tab PO SCH (08:41)
[2021-09-16] MEDS: Lactobacillus Rhamnosus GG (Probiotic) Cap PO SCH (08:42)
[2021-09-16] MEDS: BACLOFEN 10 MG PO SCH ×3 (08:42→20:33)
[2021-09-16] MEDS: OXYBUTYNIN 10 MG PO SCH (08:43)
[2021-09-17] MEDS: Cyanocobalamin (Vitamin B12) 250 MCG Tab PO SCH (08:28)
[2021-09-17] MEDS: Acetaminophen 325 MG Tab PO SCH ×2 (08:28→21:21)
[2021-09-17] MEDS: Multivitamins with Iron/Calcium/Folic Acid/Minerals Tab PO SCH (08:29)
[2021-09-17] MEDS: Ascorbic Acid 500 MG Tab PO SCH (08:29)
[2021-09-17] MEDS: Zinc Sulfate 220 MG (50mg elemental Zinc) Cap PO SCH (08:29)
[2021-09-17] MEDS: Cholecalciferol (Vitamin D3) 25 MCG Tab PO SCH (08:29)
[2021-09-17] MEDS: OXYBUTYNIN 10 MG PO SCH (08:36)
[2021-09-17] MEDS: BACLOFEN 10 MG PO SCH ×3 (08:36→21:22)
[2021-09-17] MEDS: Lactobacillus Rhamnosus GG (Probiotic) Cap PO SCH (09:47)
[2021-09-17] MEDS: [UNRECOGNIZED DRUG - OTHER] SUBCUT SCH (11:30)
[2021-09-18] MEDS: Acetaminophen 325 MG Tab PO SCH ×2 (09:28→20:24)
[2021-09-18] MEDS: Ascorbic Acid 500 MG Tab PO SCH (09:28)
[2021-09-18] MEDS: Cholecalciferol (Vitamin D3) 25 MCG Tab PO SCH (09:28)
[2021-09-18] MEDS: Multivitamins with Iron/Calcium/Folic Acid/Minerals Tab PO SCH (09:28)
[2021-09-18] MEDS: Cyanocobalamin (Vitamin B12) 250 MCG Tab PO SCH (09:28)
[2021-09-18] MEDS: Zinc Sulfate 220 MG (50mg elemental Zinc) Cap PO SCH (09:28)
[2021-09-18] MEDS: BACLOFEN 10 MG PO SCH ×3 (09:31→20:27)
[2021-09-18] MEDS: OXYBUTYNIN 10 MG PO SCH (09:31)
[2021-09-19] MEDS: OXYBUTYNIN 10 MG PO SCH (08:31)
[2021-09-19] MEDS: BACLOFEN 10 MG PO SCH ×3 (08:31→19:59)
[2021-09-19] MEDS: Multivitamins with Iron/Calcium/Folic Acid/Minerals Tab PO SCH (08:32)
[2021-09-19] MEDS: Acetaminophen 325 MG Tab PO SCH ×2 (08:33→19:59)
[2021-09-19] MEDS: Cyanocobalamin (Vitamin B12) 250 MCG Tab PO SCH (08:35)
[2021-09-19] MEDS: Cholecalciferol (Vitamin D3) 25 MCG Tab PO SCH (08:36)
[2021-09-19] MEDS: Ascorbic Acid 500 MG Tab PO SCH (08:36)
[2021-09-19] MEDS: Zinc Sulfate 220 MG (50mg elemental Zinc) Cap PO SCH (08:37)
[2021-09-20] MEDS: Cholecalciferol (Vitamin D3) 25 MCG Tab PO SCH (08:01)
[2021-09-20] MEDS: Acetaminophen 325 MG Tab PO SCH ×2 (08:01→20:40)
[2021-09-20] MEDS: Ascorbic Acid 500 MG Tab PO SCH (08:01)
[2021-09-20] MEDS: Cyanocobalamin (Vitamin B12) 250 MCG Tab PO SCH (08:02)
[2021-09-20] MEDS: Multivitamins with Iron/Calcium/Folic Acid/Minerals Tab PO SCH (08:03)
[2021-09-20] MEDS: Zinc Sulfate 220 MG (50mg elemental Zinc) Cap PO SCH (08:03)
[2021-09-20] MEDS: OXYBUTYNIN 10 MG PO SCH (08:04)
[2021-09-20] MEDS: BACLOFEN 10 MG PO SCH ×3 (08:04→20:41)
[2021-09-21] MEDS: Ascorbic Acid 500 MG Tab PO SCH (08:45)
[2021-09-21] MEDS: Cholecalciferol (Vitamin D3) 25 MCG Tab PO SCH (08:45)
[2021-09-21] MEDS: Multivitamins with Iron/Calcium/Folic Acid/Minerals Tab PO SCH (08:45)
[2021-09-21] MEDS: Cyanocobalamin (Vitamin B12) 250 MCG Tab PO SCH (08:45)
[2021-09-21] MEDS: Acetaminophen 325 MG Tab PO SCH ×2 (08:46→20:50)
[2021-09-21] MEDS: Zinc Sulfate 220 MG (50mg elemental Zinc) Cap PO SCH (08:46)
[2021-09-21] MEDS: BACLOFEN 10 MG PO SCH ×3 (08:46→20:50)
[2021-09-21] MEDS: OXYBUTYNIN 10 MG PO SCH (08:46)
[2021-09-22] MEDS: Cholecalciferol (Vitamin D3) 25 MCG Tab PO SCH (08:55)
[2021-09-22] MEDS: Cyanocobalamin (Vitamin B12) 250 MCG Tab PO SCH (08:55)
[2021-09-22] MEDS: Multivitamins with Iron/Calcium/Folic Acid/Minerals Tab PO SCH (08:55)
[2021-09-22] MEDS: Ascorbic Acid 500 MG Tab PO SCH (08:56)
[2021-09-22] MEDS: Zinc Sulfate 220 MG (50mg elemental Zinc) Cap PO SCH (08:56)
[2021-09-22] MEDS: Acetaminophen 325 MG Tab PO SCH ×2 (08:56→20:22)
[2021-09-22] MEDS: BACLOFEN 10 MG PO SCH ×3 (08:56→20:23)
[2021-09-22] MEDS: OXYBUTYNIN 10 MG PO SCH (08:57)
[2021-09-23] MEDS: Multivitamins with Iron/Calcium/Folic Acid/Minerals Tab PO SCH (09:42)
[2021-09-23] MEDS: Cholecalciferol (Vitamin D3) 25 MCG Tab PO SCH (09:43)
[2021-09-23] MEDS: Ascorbic Acid 500 MG Tab PO SCH (09:44)
[2021-09-23] MEDS: Cyanocobalamin (Vitamin B12) 250 MCG Tab PO SCH (09:44)
[2021-09-23] MEDS: Zinc Sulfate 220 MG (50mg elemental Zinc) Cap PO SCH (09:44)
[2021-09-23] MEDS: Acetaminophen 325 MG Tab PO SCH ×2 (09:44→21:08)
[2021-09-23] MEDS: BACLOFEN 10 MG PO SCH ×3 (09:46→21:10)
[2021-09-23] MEDS: OXYBUTYNIN 10 MG PO SCH (09:47)
[2021-09-24] MEDS: Cyanocobalamin (Vitamin B12) 250 MCG Tab PO SCH (08:45)
[2021-09-24] MEDS: Multivitamins with Iron/Calcium/Folic Acid/Minerals Tab PO SCH (08:45)
[2021-09-24] MEDS: Cholecalciferol (Vitamin D3) 25 MCG Tab PO SCH (08:45)
[2021-09-24] MEDS: Ascorbic Acid 500 MG Tab PO SCH (08:45)
[2021-09-24] MEDS: Zinc Sulfate 220 MG (50mg elemental Zinc) Cap PO SCH (08:48)
[2021-09-24] MEDS: BACLOFEN 10 MG PO SCH ×2 (08:50→20:18)
[2021-09-24] MEDS: Acetaminophen 325 MG Tab PO SCH ×2 (08:54→20:16)
[2021-09-24] MEDS: OXYBUTYNIN 10 MG PO SCH (08:55)
[2021-09-25] MEDS: Zinc Sulfate 220 MG (50mg elemental Zinc) Cap PO SCH (09:10)
[2021-09-25] MEDS: Ascorbic Acid 500 MG Tab PO SCH (09:10)
[2021-09-25] MEDS: Cyanocobalamin (Vitamin B12) 250 MCG Tab PO SCH (09:10)
[2021-09-25] MEDS: Multivitamins with Iron/Calcium/Folic Acid/Minerals Tab PO SCH (09:10)
[2021-09-25] MEDS: Cholecalciferol (Vitamin D3) 25 MCG Tab PO SCH (09:11)
[2021-09-25] MEDS: Acetaminophen 325 MG Tab PO SCH ×2 (09:17→20:20)
[2021-09-25] MEDS: BACLOFEN 10 MG PO SCH ×2 (09:17→20:19)
[2021-09-25] MEDS: OXYBUTYNIN 10 MG PO SCH (09:18)
[2021-09-26] MEDS: Multivitamins with Iron/Calcium/Folic Acid/Minerals Tab PO SCH (09:20)
[2021-09-26] MEDS: Cholecalciferol (Vitamin D3) 25 MCG Tab PO SCH (09:20)
[2021-09-26] MEDS: Zinc Sulfate 220 MG (50mg elemental Zinc) Cap PO SCH (09:21)
[2021-09-26] MEDS: Cyanocobalamin (Vitamin B12) 250 MCG Tab PO SCH (09:21)
[2021-09-26] MEDS: Ascorbic Acid 500 MG Tab PO SCH (09:21)
[2021-09-26] MEDS: OXYBUTYNIN 10 MG PO SCH (09:22)
[2021-09-26] MEDS: Acetaminophen 325 MG Tab PO SCH ×2 (09:22→20:26)
[2021-09-26] MEDS: BACLOFEN 10 MG PO SCH ×2 (09:23→20:26)
[2021-09-27] MEDS: Cholecalciferol (Vitamin D3) 25 MCG Tab PO SCH (09:50)
[2021-09-27] MEDS: Acetaminophen 325 MG Tab PO SCH ×2 (09:54→20:03)
[2021-09-27] MEDS: Zinc Sulfate 220 MG (50mg elemental Zinc) Cap PO SCH (09:55)
[2021-09-27] MEDS: Cyanocobalamin (Vitamin B12) 250 MCG Tab PO SCH (09:55)
[2021-09-27] MEDS: Ascorbic Acid 500 MG Tab PO SCH (09:55)
[2021-09-27] MEDS: Multivitamins with Iron/Calcium/Folic Acid/Minerals Tab PO SCH (09:55)
[2021-09-27] MEDS: BACLOFEN 10 MG PO SCH ×2 (09:56→20:03)
[2021-09-27] MEDS: OXYBUTYNIN 10 MG PO SCH (09:56)
[2021-09-28] MEDS: Acetaminophen 325 MG Tab PO SCH ×2 (10:07→20:18)
[2021-09-28] MEDS: Cholecalciferol (Vitamin D3) 25 MCG Tab PO SCH (10:07)
[2021-09-28] MEDS: Cyanocobalamin (Vitamin B12) 250 MCG Tab PO SCH (10:08)
[2021-09-28] MEDS: Ascorbic Acid 500 MG Tab PO SCH (10:08)
[2021-09-28] MEDS: Zinc Sulfate 220 MG (50mg elemental Zinc) Cap PO SCH (10:08)
[2021-09-28] MEDS: Multivitamins with Iron/Calcium/Folic Acid/Minerals Tab PO SCH (10:08)
[2021-09-28] MEDS: OXYBUTYNIN 10 MG PO SCH (10:10)
[2021-09-28] MEDS: BACLOFEN 10 MG PO SCH ×2 (10:10→20:18)
[2021-09-29] MEDS: BACLOFEN 10 MG PO SCH ×2 (11:29→19:59)
[2021-09-29] MEDS: OXYBUTYNIN 10 MG PO SCH (11:29)
[2021-09-29] MEDS: Cholecalciferol (Vitamin D3) 25 MCG Tab PO SCH (11:30)
[2021-09-29] MEDS: Multivitamins with Iron/Calcium/Folic Acid/Minerals Tab PO SCH (11:30)
[2021-09-29] MEDS: Acetaminophen 325 MG Tab PO SCH ×2 (11:32→19:59)
[2021-09-29] MEDS: Cyanocobalamin (Vitamin B12) 250 MCG Tab PO SCH (11:32)
[2021-09-29] MEDS: Ascorbic Acid 500 MG Tab PO SCH (11:32)
[2021-09-29] MEDS: Zinc Sulfate 220 MG (50mg elemental Zinc) Cap PO SCH (11:32)
[2021-09-30] MEDS: Multivitamins with Iron/Calcium/Folic Acid/Minerals Tab PO SCH (10:36)
[2021-09-30] MEDS: Cholecalciferol (Vitamin D3) 25 MCG Tab PO SCH (10:38)
[2021-09-30] MEDS: Acetaminophen 325 MG Tab PO SCH ×2 (10:39→20:14)
[2021-09-30] MEDS: Cyanocobalamin (Vitamin B12) 250 MCG Tab PO SCH (10:40)
[2021-09-30] MEDS: Ascorbic Acid 500 MG Tab PO SCH (10:40)
[2021-09-30] MEDS: Zinc Sulfate 220 MG (50mg elemental Zinc) Cap PO SCH (10:40)
[2021-09-30] MEDS: BACLOFEN 10 MG PO SCH ×2 (10:40→20:17)
[2021-09-30] MEDS: OXYBUTYNIN 10 MG PO SCH (10:41)
[2021-10-01] MEDS: BACLOFEN 10 MG PO SCH ×2 (08:11→20:36)
[2021-10-01] MEDS: Multivitamins with Iron/Calcium/Folic Acid/Minerals Tab PO SCH (08:11)
[2021-10-01] MEDS: Acetaminophen 325 MG Tab PO SCH ×2 (08:12→20:36)
[2021-10-01] MEDS: OXYBUTYNIN 10 MG PO SCH (08:12)
[2021-10-01] MEDS: Cholecalciferol (Vitamin D3) 25 MCG Tab PO SCH (08:13)
[2021-10-01] MEDS: Cyanocobalamin (Vitamin B12) 250 MCG Tab PO SCH (08:13)
[2021-10-01] MEDS: Ascorbic Acid 500 MG Tab PO SCH (08:14)
[2021-10-01] MEDS: Zinc Sulfate 220 MG (50mg elemental Zinc) Cap PO SCH (08:15)
[2021-10-02] MEDS: Cholecalciferol (Vitamin D3) 25 MCG Tab PO SCH (08:52)
[2021-10-02] MEDS: Cyanocobalamin (Vitamin B12) 250 MCG Tab PO SCH (08:53)
[2021-10-02] MEDS: Multivitamins with Iron/Calcium/Folic Acid/Minerals Tab PO SCH (08:53)
[2021-10-02] MEDS: Acetaminophen 325 MG Tab PO SCH ×2 (08:53→20:07)
[2021-10-02] MEDS: Zinc Sulfate 220 MG (50mg elemental Zinc) Cap PO SCH (08:53)
[2021-10-02] MEDS: Ascorbic Acid 500 MG Tab PO SCH (08:53)
[2021-10-02] MEDS: BACLOFEN 10 MG PO SCH ×2 (08:54→20:07)
[2021-10-02] MEDS: OXYBUTYNIN 10 MG PO SCH (08:55)
[2021-10-03] MEDS: Acetaminophen 325 MG Tab PO SCH ×2 (08:20→20:14)
[2021-10-03] MEDS: Cyanocobalamin (Vitamin B12) 250 MCG Tab PO SCH (08:20)
[2021-10-03] MEDS: Zinc Sulfate 220 MG (50mg elemental Zinc) Cap PO SCH (08:20)
[2021-10-03] MEDS: Cholecalciferol (Vitamin D3) 25 MCG Tab PO SCH (08:21)
[2021-10-03] MEDS: Ascorbic Acid 500 MG Tab PO SCH (08:22)
[2021-10-03] MEDS: OXYBUTYNIN 10 MG PO SCH (08:22)
[2021-10-03] MEDS: BACLOFEN 10 MG PO SCH ×2 (08:22→20:15)
[2021-10-03] MEDS: Multivitamins with Iron/Calcium/Folic Acid/Minerals Tab PO SCH (08:22)
[2021-10-04] MEDS: BACLOFEN 10 MG PO SCH ×2 (09:26→20:08)
[2021-10-04] MEDS: OXYBUTYNIN 10 MG PO SCH (09:27)
[2021-10-04] MEDS: Acetaminophen 325 MG Tab PO SCH ×2 (09:27→20:06)
[2021-10-04] MEDS: Multivitamins with Iron/Calcium/Folic Acid/Minerals Tab PO SCH (09:29)
[2021-10-04] MEDS: Ascorbic Acid 500 MG Tab PO SCH (09:29)
[2021-10-04] MEDS: Zinc Sulfate 220 MG (50mg elemental Zinc) Cap PO SCH (09:29)
[2021-10-04] MEDS: Cholecalciferol (Vitamin D3) 25 MCG Tab PO SCH (09:29)
[2021-10-04] MEDS: Cyanocobalamin (Vitamin B12) 250 MCG Tab PO SCH (09:30)
[2021-10-05] MEDS: Cyanocobalamin (Vitamin B12) 250 MCG Tab PO SCH ×2 (06:30→10:49)
[2021-10-05] MEDS: Acetaminophen 325 MG Tab PO SCH ×3 (06:31→21:00)
[2021-10-05] MEDS: Cholecalciferol (Vitamin D3) 25 MCG Tab PO SCH ×2 (06:31→10:49)
[2021-10-05] MEDS: Zinc Sulfate 220 MG (50mg elemental Zinc) Cap PO SCH ×2 (06:32→10:49)
[2021-10-05] MEDS: Multivitamins with Iron/Calcium/Folic Acid/Minerals Tab PO SCH ×2 (06:32→10:49)
[2021-10-05] MEDS: OXYBUTYNIN 10 MG PO SCH ×2 (06:33→10:49)
[2021-10-05] MEDS: Ascorbic Acid 500 MG Tab PO SCH ×2 (06:33→10:49)
[2021-10-05] MEDS: BACLOFEN 10 MG PO SCH ×2 (10:49→21:00)
[2021-10-06] MEDS: Acetaminophen 325 MG Tab PO SCH ×2 (08:54→20:00)
[2021-10-06] MEDS: Cholecalciferol (Vitamin D3) 25 MCG Tab PO SCH (08:55)
[2021-10-06] MEDS: Zinc Sulfate 220 MG (50mg elemental Zinc) Cap PO SCH (08:56)
[2021-10-06] MEDS: Cyanocobalamin (Vitamin B12) 250 MCG Tab PO SCH (08:57)
[2021-10-06] MEDS: Multivitamins with Iron/Calcium/Folic Acid/Minerals Tab PO SCH (08:57)
[2021-10-06] MEDS: Ascorbic Acid 500 MG Tab PO SCH (08:57)
[2021-10-06] MEDS: BACLOFEN 10 MG PO SCH ×2 (08:58→20:01)
[2021-10-06] MEDS: OXYBUTYNIN 10 MG PO SCH (08:59)
[2021-10-07] MEDS: Cyanocobalamin (Vitamin B12) 250 MCG Tab PO SCH (10:07)
[2021-10-07] MEDS: Acetaminophen 325 MG Tab PO SCH ×2 (10:07→20:10)
[2021-10-07] MEDS: Cholecalciferol (Vitamin D3) 25 MCG Tab PO SCH (10:08)
[2021-10-07] MEDS: Zinc Sulfate 220 MG (50mg elemental Zinc) Cap PO SCH (10:08)
[2021-10-07] MEDS: Ascorbic Acid 500 MG Tab PO SCH (10:08)
[2021-10-07] MEDS: Multivitamins with Iron/Calcium/Folic Acid/Minerals Tab PO SCH (10:08)
[2021-10-07] MEDS: BACLOFEN 10 MG PO SCH ×2 (10:08→20:09)
[2021-10-07] MEDS: OXYBUTYNIN 10 MG PO SCH (10:09)
[2021-10-08] MEDS: Cyanocobalamin (Vitamin B12) 250 MCG Tab PO SCH (08:12)
[2021-10-08] MEDS: Multivitamins with Iron/Calcium/Folic Acid/Minerals Tab PO SCH (08:12)
[2021-10-08] MEDS: Acetaminophen 325 MG Tab PO SCH ×2 (08:12→20:39)
[2021-10-08] MEDS: Ascorbic Acid 500 MG Tab PO SCH (08:13)
[2021-10-08] MEDS: Cholecalciferol (Vitamin D3) 25 MCG Tab PO SCH (08:13)
[2021-10-08] MEDS: OXYBUTYNIN 10 MG PO SCH (08:14)
[2021-10-08] MEDS: BACLOFEN 10 MG PO SCH ×2 (08:14→20:39)
[2021-10-08] MEDS: Zinc Sulfate 220 MG (50mg elemental Zinc) Cap PO SCH (08:14)
[2021-10-09] MEDS: Multivitamins with Iron/Calcium/Folic Acid/Minerals Tab PO SCH (10:22)
[2021-10-09] MEDS: Ascorbic Acid 500 MG Tab PO SCH (10:22)
[2021-10-09] MEDS: Acetaminophen 325 MG Tab PO SCH ×2 (10:23→20:48)
[2021-10-09] MEDS: Zinc Sulfate 220 MG (50mg elemental Zinc) Cap PO SCH (10:23)
[2021-10-09] MEDS: Cyanocobalamin (Vitamin B12) 250 MCG Tab PO SCH (10:24)
[2021-10-09] MEDS: Cholecalciferol (Vitamin D3) 25 MCG Tab PO SCH (10:24)
[2021-10-09] MEDS: BACLOFEN 10 MG PO SCH ×2 (10:27→20:49)
[2021-10-09] MEDS: OXYBUTYNIN 10 MG PO SCH (10:27)
[2021-10-10] MEDS: BACLOFEN 10 MG PO SCH ×2 (09:20→20:53)
[2021-10-10] MEDS: OXYBUTYNIN 10 MG PO SCH (09:20)
[2021-10-10] MEDS: Cholecalciferol (Vitamin D3) 25 MCG Tab PO SCH (09:21)
[2021-10-10] MEDS: Zinc Sulfate 220 MG (50mg elemental Zinc) Cap PO SCH (09:21)
[2021-10-10] MEDS: Multivitamins with Iron/Calcium/Folic Acid/Minerals Tab PO SCH (09:21)
[2021-10-10] MEDS: Acetaminophen 325 MG Tab PO SCH ×2 (09:21→20:53)
[2021-10-10] MEDS: Cyanocobalamin (Vitamin B12) 250 MCG Tab PO SCH (09:21)
[2021-10-10] MEDS: Ascorbic Acid 500 MG Tab PO SCH (09:22)
[2021-10-11] MEDS: Cholecalciferol (Vitamin D3) 25 MCG Tab PO SCH (10:04)
[2021-10-11] MEDS: Acetaminophen 325 MG Tab PO SCH ×2 (10:05→20:37)
[2021-10-11] MEDS: Zinc Sulfate 220 MG (50mg elemental Zinc) Cap PO SCH (10:05)
[2021-10-11] MEDS: Cyanocobalamin (Vitamin B12) 250 MCG Tab PO SCH (10:05)
[2021-10-11] MEDS: Ascorbic Acid 500 MG Tab PO SCH (10:06)
[2021-10-11] MEDS: Multivitamins with Iron/Calcium/Folic Acid/Minerals Tab PO SCH (10:06)
[2021-10-11] MEDS: BACLOFEN 10 MG PO SCH ×2 (10:06→20:37)
[2021-10-11] MEDS: OXYBUTYNIN 10 MG PO SCH (10:07)
[2021-10-12] MEDS: BACLOFEN 10 MG PO SCH ×2 (13:23→20:54)
[2021-10-12] MEDS: Acetaminophen 325 MG Tab PO SCH ×2 (13:23→20:57)
[2021-10-12] MEDS: Cholecalciferol (Vitamin D3) 25 MCG Tab PO SCH (16:16)
[2021-10-12] MEDS: Ascorbic Acid 500 MG Tab PO SCH (16:17)
[2021-10-12] MEDS: Cyanocobalamin (Vitamin B12) 250 MCG Tab PO SCH (16:17)
[2021-10-12] MEDS: Acetaminophen 325 MG Tab PO PRN (16:18)
[2021-10-12] MEDS: Zinc Sulfate 220 MG (50mg elemental Zinc) Cap PO SCH (16:18)
[2021-10-12] MEDS: Multivitamins with Iron/Calcium/Folic Acid/Minerals Tab PO SCH (16:18)
[2021-10-12] MEDS: OXYBUTYNIN 10 MG PO SCH (16:20)
[2021-10-13] MEDS: Cholecalciferol (Vitamin D3) 25 MCG Tab PO SCH (09:19)
[2021-10-13] MEDS: Multivitamins with Iron/Calcium/Folic Acid/Minerals Tab PO SCH (09:20)
[2021-10-13] MEDS: Acetaminophen 325 MG Tab PO SCH ×2 (09:20→20:01)
[2021-10-13] MEDS: Ascorbic Acid 500 MG Tab PO SCH (09:20)
[2021-10-13] MEDS: Zinc Sulfate 220 MG (50mg elemental Zinc) Cap PO SCH (09:20)
[2021-10-13] MEDS: Cyanocobalamin (Vitamin B12) 250 MCG Tab PO SCH (09:20)
[2021-10-13] MEDS: OXYBUTYNIN 10 MG PO SCH (09:21)
[2021-10-13] MEDS: BACLOFEN 10 MG PO SCH ×2 (09:21→20:02)
[2021-10-14 06:07] VITALS: BP 126/76; PULSE 70
[2021-10-14] MEDS: BACLOFEN 10 MG PO SCH (08:00)
[2021-10-14] MEDS: OXYBUTYNIN 10 MG PO SCH (08:00)
[2021-10-14] MEDS: Acetaminophen 325 MG Tab PO SCH (08:01)
[2021-10-14] MEDS: Multivitamins with Iron/Calcium/Folic Acid/Minerals Tab PO SCH (08:01)
[2021-10-14] MEDS: Cyanocobalamin (Vitamin B12) 250 MCG Tab PO SCH (08:02)
[2021-10-14] MEDS: Ascorbic Acid 500 MG Tab PO SCH (08:03)
[2021-10-14] MEDS: Cholecalciferol (Vitamin D3) 25 MCG Tab PO SCH (08:03)
[2021-10-14] MEDS: Zinc Sulfate 220 MG (50mg elemental Zinc) Cap PO SCH (08:04)
== END 2021-10-14 13:47 | disposition home or self-care (01) | DRG 593 ==
LOC: VM.MS 10-15 14:27
PROVIDERS: ADMIT Family Medicine; ATTEND Family Medicine
DX: L89.159 Pressure ulcer of sacral region, unspecified stage (principal); M46.28 Osteomyelitis of vertebra, sacral and sacrococcygeal region; N39.0 Urinary tract infection, site not specified; Z68.41 Body mass index [BMI] 40.0-44.9, adult; J32.9 Chronic sinusitis, unspecified; K59.09 Other constipation; Z66 Do not resuscitate; N31.9 Neuromuscular dysfunction of bladder, unspecified; G35 Multiple sclerosis; I10 Essential (primary) hypertension; E66.9 Obesity, unspecified; C44.229 Squamous cell carcinoma of skin of left ear and external auricular canal; F43.25 Adjustment disorder with mixed disturbance of emotions and conduct; N32.89 Other specified disorders of bladder; H61.22 Impacted cerumen, left ear; L60.0 Ingrowing nail; Z79.899 Other long term (current) drug therapy; Z88.1 Allergy status to other antibiotic agents; Z91.011 Allergy to milk products; Z91.048 Other nonmedicinal substance allergy status; Z88.8 Allergy status to other drugs, medicaments and biological substances; Z93.3 Colostomy status; Z96.0 Presence of urogenital implants
CPT/HCPCS: 36415; 51701; 51702; 51703; 85025; 85652; 86140; 90686; A9270-GY; G0008

== ENCOUNTER 2021-10-11 15:37 | Inpatient (IN) | payer MEDICARE, MEDICAID ==
[2021-10-14] MEDS ORDERED: Miconazole 2% Top Powder 45 GM Container TOP PRN (14:00)
[2021-10-14] MEDS ORDERED: MODAFINIL 200 MG PO PRN (14:00)
[2021-10-14] MEDS: BACLOFEN 10 MG PO SCH (20:17)
[2021-10-14] MEDS: Acetaminophen 325 MG Tab PO SCH (20:18)
[2021-10-15] MEDS: Cyanocobalamin (Vitamin B12) 250 MCG Tab PO SCH (08:19)
[2021-10-15] MEDS: Zinc Sulfate 220 MG (50mg elemental Zinc) Cap PO SCH (08:20)
[2021-10-15] MEDS: Ascorbic Acid 500 MG Tab PO SCH (08:20)
[2021-10-15] MEDS: Cholecalciferol (Vitamin D3) 25 MCG Tab PO SCH (08:20)
[2021-10-15] MEDS: Multivitamins with Iron/Calcium/Folic Acid/Minerals Tab PO SCH (08:20)
[2021-10-15] MEDS: BACLOFEN 10 MG PO SCH ×2 (08:21→20:50)
[2021-10-15] MEDS: Acetaminophen 325 MG Tab PO SCH ×2 (08:21→20:51)
[2021-10-15] MEDS: OXYBUTYNIN 10 MG PO SCH (08:21)
[2021-10-15] MEDS: [UNRECOGNIZED DRUG - OTHER] SUBCUT SCH (11:21)
[2021-10-16] MEDS: BACLOFEN 10 MG PO SCH ×2 (08:31→20:51)
[2021-10-16] MEDS: OXYBUTYNIN 10 MG PO SCH (08:31)
[2021-10-16] MEDS: Acetaminophen 325 MG Tab PO SCH ×2 (08:32→20:51)
[2021-10-16] MEDS: Ascorbic Acid 500 MG Tab PO SCH (08:32)
[2021-10-16] MEDS: Zinc Sulfate 220 MG (50mg elemental Zinc) Cap PO SCH (08:32)
[2021-10-16] MEDS: Cyanocobalamin (Vitamin B12) 250 MCG Tab PO SCH (08:32)
[2021-10-16] MEDS: Cholecalciferol (Vitamin D3) 25 MCG Tab PO SCH (08:32)
[2021-10-16] MEDS: Multivitamins with Iron/Calcium/Folic Acid/Minerals Tab PO SCH (08:32)
[2021-10-17] MEDS: OXYBUTYNIN 10 MG PO SCH (08:33)
[2021-10-17] MEDS: BACLOFEN 10 MG PO SCH ×2 (08:33→20:24)
[2021-10-17] MEDS: Cyanocobalamin (Vitamin B12) 250 MCG Tab PO SCH (08:34)
[2021-10-17] MEDS: Cholecalciferol (Vitamin D3) 25 MCG Tab PO SCH (08:34)
[2021-10-17] MEDS: Zinc Sulfate 220 MG (50mg elemental Zinc) Cap PO SCH (08:34)
[2021-10-17] MEDS: Ascorbic Acid 500 MG Tab PO SCH (08:34)
[2021-10-17] MEDS: Acetaminophen 325 MG Tab PO SCH ×2 (08:34→20:24)
[2021-10-17] MEDS: Multivitamins with Iron/Calcium/Folic Acid/Minerals Tab PO SCH (08:34)
[2021-10-18] MEDS: BACLOFEN 10 MG PO SCH ×2 (08:00→21:23)
[2021-10-18] MEDS: OXYBUTYNIN 10 MG PO SCH (08:01)
[2021-10-18] MEDS: Cyanocobalamin (Vitamin B12) 250 MCG Tab PO SCH (08:01)
[2021-10-18] MEDS: Multivitamins with Iron/Calcium/Folic Acid/Minerals Tab PO SCH (08:01)
[2021-10-18] MEDS: Ascorbic Acid 500 MG Tab PO SCH (08:02)
[2021-10-18] MEDS: Cholecalciferol (Vitamin D3) 25 MCG Tab PO SCH (08:02)
[2021-10-18] MEDS: Zinc Sulfate 220 MG (50mg elemental Zinc) Cap PO SCH (08:02)
[2021-10-18] MEDS: Acetaminophen 325 MG Tab PO SCH ×2 (08:03→21:23)
[2021-10-19] MEDS: BACLOFEN 10 MG PO SCH ×2 (08:28→20:26)
[2021-10-19] MEDS: Cholecalciferol (Vitamin D3) 25 MCG Tab PO SCH (08:28)
[2021-10-19] MEDS: Cyanocobalamin (Vitamin B12) 250 MCG Tab PO SCH (08:28)
[2021-10-19] MEDS: OXYBUTYNIN 10 MG PO SCH (08:28)
[2021-10-19] MEDS: Ascorbic Acid 500 MG Tab PO SCH (08:28)
[2021-10-19] MEDS: Multivitamins with Iron/Calcium/Folic Acid/Minerals Tab PO SCH (08:29)
[2021-10-19] MEDS: Zinc Sulfate 220 MG (50mg elemental Zinc) Cap PO SCH (08:29)
[2021-10-19] MEDS: Acetaminophen 325 MG Tab PO SCH ×2 (08:29→20:26)
[2021-10-20] MEDS: OXYBUTYNIN 10 MG PO SCH (08:01)
[2021-10-20] MEDS: Ascorbic Acid 500 MG Tab PO SCH (08:01)
[2021-10-20] MEDS: Cholecalciferol (Vitamin D3) 25 MCG Tab PO SCH (08:01)
[2021-10-20] MEDS: BACLOFEN 10 MG PO SCH ×2 (08:01→20:16)
[2021-10-20] MEDS: Multivitamins with Iron/Calcium/Folic Acid/Minerals Tab PO SCH (08:01)
[2021-10-20] MEDS: Acetaminophen 325 MG Tab PO SCH ×2 (08:02→20:15)
[2021-10-20] MEDS: Cyanocobalamin (Vitamin B12) 250 MCG Tab PO SCH (08:03)
[2021-10-20] MEDS: Zinc Sulfate 220 MG (50mg elemental Zinc) Cap PO SCH (08:03)
[2021-10-21] MEDS: Cholecalciferol (Vitamin D3) 25 MCG Tab PO SCH (08:31)
[2021-10-21] MEDS: Ascorbic Acid 500 MG Tab PO SCH (08:31)
[2021-10-21] MEDS: Acetaminophen 325 MG Tab PO SCH ×2 (08:32→20:42)
[2021-10-21] MEDS: Zinc Sulfate 220 MG (50mg elemental Zinc) Cap PO SCH (08:32)
[2021-10-21] MEDS: OXYBUTYNIN 10 MG PO SCH (08:32)
[2021-10-21] MEDS: BACLOFEN 10 MG PO SCH ×2 (08:32→20:42)
[2021-10-21] MEDS: Multivitamins with Iron/Calcium/Folic Acid/Minerals Tab PO SCH (08:33)
[2021-10-21] MEDS: Cyanocobalamin (Vitamin B12) 250 MCG Tab PO SCH (08:33)
[2021-10-22] MEDS: BACLOFEN 10 MG PO SCH ×2 (08:17→20:40)
[2021-10-22] MEDS: OXYBUTYNIN 10 MG PO SCH (08:17)
[2021-10-22] MEDS: Multivitamins with Iron/Calcium/Folic Acid/Minerals Tab PO SCH (08:18)
[2021-10-22] MEDS: Cholecalciferol (Vitamin D3) 25 MCG Tab PO SCH (08:18)
[2021-10-22] MEDS: Zinc Sulfate 220 MG (50mg elemental Zinc) Cap PO SCH (08:18)
[2021-10-22] MEDS: Acetaminophen 325 MG Tab PO SCH ×2 (08:18→20:40)
[2021-10-22] MEDS: Ascorbic Acid 500 MG Tab PO SCH (08:18)
[2021-10-22] MEDS: Cyanocobalamin (Vitamin B12) 250 MCG Tab PO SCH (08:19)
[2021-10-23] MEDS: Multivitamins with Iron/Calcium/Folic Acid/Minerals Tab PO SCH (08:37)
[2021-10-23] MEDS: Zinc Sulfate 220 MG (50mg elemental Zinc) Cap PO SCH (08:37)
[2021-10-23] MEDS: Ascorbic Acid 500 MG Tab PO SCH (08:37)
[2021-10-23] MEDS: Cyanocobalamin (Vitamin B12) 250 MCG Tab PO SCH (08:37)
[2021-10-23] MEDS: Cholecalciferol (Vitamin D3) 25 MCG Tab PO SCH (08:37)
[2021-10-23] MEDS: Acetaminophen 325 MG Tab PO SCH ×2 (08:38→20:53)
[2021-10-23] MEDS: OXYBUTYNIN 10 MG PO SCH (08:39)
[2021-10-23] MEDS: BACLOFEN 10 MG PO SCH ×2 (08:39→20:53)
[2021-10-24] MEDS: BACLOFEN 10 MG PO SCH ×2 (08:00→19:59)
[2021-10-24] MEDS: OXYBUTYNIN 10 MG PO SCH (08:00)
[2021-10-24] MEDS: Cyanocobalamin (Vitamin B12) 250 MCG Tab PO SCH (08:01)
[2021-10-24] MEDS: Acetaminophen 325 MG Tab PO SCH ×2 (08:01→19:59)
[2021-10-24] MEDS: Ascorbic Acid 500 MG Tab PO SCH (08:01)
[2021-10-24] MEDS: Cholecalciferol (Vitamin D3) 25 MCG Tab PO SCH (08:02)
[2021-10-24] MEDS: Zinc Sulfate 220 MG (50mg elemental Zinc) Cap PO SCH (08:03)
[2021-10-24] MEDS: Multivitamins with Iron/Calcium/Folic Acid/Minerals Tab PO SCH (08:03)
[2021-10-25] MEDS: Cyanocobalamin (Vitamin B12) 250 MCG Tab PO SCH (08:35)
[2021-10-25] MEDS: Multivitamins with Iron/Calcium/Folic Acid/Minerals Tab PO SCH (08:35)
[2021-10-25] MEDS: Ascorbic Acid 500 MG Tab PO SCH (08:36)
[2021-10-25] MEDS: Zinc Sulfate 220 MG (50mg elemental Zinc) Cap PO SCH (08:36)
[2021-10-25] MEDS: Cholecalciferol (Vitamin D3) 25 MCG Tab PO SCH (08:36)
[2021-10-25] MEDS: BACLOFEN 10 MG PO SCH ×2 (08:37→20:19)
[2021-10-25] MEDS: Acetaminophen 325 MG Tab PO SCH ×2 (08:37→20:19)
[2021-10-25] MEDS: OXYBUTYNIN 10 MG PO SCH (08:38)
[2021-10-26] MEDS: OXYBUTYNIN 10 MG PO SCH (09:15)
[2021-10-26] MEDS: BACLOFEN 10 MG PO SCH ×2 (09:15→20:53)
[2021-10-26] MEDS: Cyanocobalamin (Vitamin B12) 250 MCG Tab PO SCH (09:16)
[2021-10-26] MEDS: Multivitamins with Iron/Calcium/Folic Acid/Minerals Tab PO SCH (09:16)
[2021-10-26] MEDS: Zinc Sulfate 220 MG (50mg elemental Zinc) Cap PO SCH (09:16)
[2021-10-26] MEDS: Acetaminophen 325 MG Tab PO SCH ×2 (09:17→20:55)
[2021-10-26] MEDS: Ascorbic Acid 500 MG Tab PO SCH (09:17)
[2021-10-26] MEDS: Cholecalciferol (Vitamin D3) 25 MCG Tab PO SCH (09:17)
[2021-10-27] MEDS: OXYBUTYNIN 10 MG PO SCH (09:36)
[2021-10-27] MEDS: Cyanocobalamin (Vitamin B12) 250 MCG Tab PO SCH (09:37)
[2021-10-27] MEDS: Zinc Sulfate 220 MG (50mg elemental Zinc) Cap PO SCH (09:37)
[2021-10-27] MEDS: Acetaminophen 325 MG Tab PO SCH ×2 (09:37→20:25)
[2021-10-27] MEDS: Ascorbic Acid 500 MG Tab PO SCH (09:38)
[2021-10-27] MEDS: Multivitamins with Iron/Calcium/Folic Acid/Minerals Tab PO SCH (09:38)
[2021-10-27] MEDS: Cholecalciferol (Vitamin D3) 25 MCG Tab PO SCH (09:38)
[2021-10-27] MEDS: BACLOFEN 10 MG PO SCH ×2 (09:39→20:26)
[2021-10-28] MEDS: BACLOFEN 10 MG PO SCH ×2 (08:16→20:57)
[2021-10-28] MEDS: OXYBUTYNIN 10 MG PO SCH (08:16)
[2021-10-28] MEDS: Ascorbic Acid 500 MG Tab PO SCH (08:17)
[2021-10-28] MEDS: Acetaminophen 325 MG Tab PO SCH ×2 (08:17→20:56)
[2021-10-28] MEDS: Zinc Sulfate 220 MG (50mg elemental Zinc) Cap PO SCH (08:17)
[2021-10-28] MEDS: Cholecalciferol (Vitamin D3) 25 MCG Tab PO SCH (08:18)
[2021-10-28] MEDS: Cyanocobalamin (Vitamin B12) 250 MCG Tab PO SCH (08:19)
[2021-10-28] MEDS: Multivitamins with Iron/Calcium/Folic Acid/Minerals Tab PO SCH (08:20)
[2021-10-29] MEDS: BACLOFEN 10 MG PO SCH ×2 (08:00→20:49)
[2021-10-29] MEDS: OXYBUTYNIN 10 MG PO SCH (08:00)
[2021-10-29] MEDS: Ascorbic Acid 500 MG Tab PO SCH (08:01)
[2021-10-29] MEDS: Cholecalciferol (Vitamin D3) 25 MCG Tab PO SCH (08:03)
[2021-10-29] MEDS: Zinc Sulfate 220 MG (50mg elemental Zinc) Cap PO SCH (08:03)
[2021-10-29] MEDS: Cyanocobalamin (Vitamin B12) 250 MCG Tab PO SCH (08:03)
[2021-10-29] MEDS: Acetaminophen 325 MG Tab PO SCH ×2 (08:04→20:49)
[2021-10-29] MEDS: Multivitamins with Iron/Calcium/Folic Acid/Minerals Tab PO SCH (08:05)
[2021-10-30] MEDS: OXYBUTYNIN 10 MG PO SCH (09:07)
[2021-10-30] MEDS: BACLOFEN 10 MG PO SCH ×2 (09:07→20:44)
[2021-10-30] MEDS: Cholecalciferol (Vitamin D3) 25 MCG Tab PO SCH (09:07)
[2021-10-30] MEDS: Ascorbic Acid 500 MG Tab PO SCH (09:07)
[2021-10-30] MEDS: Cyanocobalamin (Vitamin B12) 250 MCG Tab PO SCH (09:08)
[2021-10-30] MEDS: Acetaminophen 325 MG Tab PO SCH ×2 (09:08→20:44)
[2021-10-30] MEDS: Multivitamins with Iron/Calcium/Folic Acid/Minerals Tab PO SCH (09:08)
[2021-10-30] MEDS: Zinc Sulfate 220 MG (50mg elemental Zinc) Cap PO SCH (09:08)
[2021-10-31] MEDS: BACLOFEN 10 MG PO SCH ×2 (08:19→20:36)
[2021-10-31] MEDS: OXYBUTYNIN 10 MG PO SCH (08:19)
[2021-10-31] MEDS: Acetaminophen 325 MG Tab PO SCH ×2 (08:20→20:37)
[2021-10-31] MEDS: Cholecalciferol (Vitamin D3) 25 MCG Tab PO SCH (08:20)
[2021-10-31] MEDS: Multivitamins with Iron/Calcium/Folic Acid/Minerals Tab PO SCH (08:21)
[2021-10-31] MEDS: Cyanocobalamin (Vitamin B12) 250 MCG Tab PO SCH (08:21)
[2021-10-31] MEDS: Zinc Sulfate 220 MG (50mg elemental Zinc) Cap PO SCH (08:21)
[2021-10-31] MEDS: Ascorbic Acid 500 MG Tab PO SCH (08:21)
[2021-11-01] MEDS: Cholecalciferol (Vitamin D3) 25 MCG Tab PO SCH (08:59)
[2021-11-01] MEDS: Ascorbic Acid 500 MG Tab PO SCH (09:00)
[2021-11-01] MEDS: Acetaminophen 325 MG Tab PO SCH ×2 (09:00→21:06)
[2021-11-01] MEDS: Zinc Sulfate 220 MG (50mg elemental Zinc) Cap PO SCH (09:00)
[2021-11-01] MEDS: Cyanocobalamin (Vitamin B12) 250 MCG Tab PO SCH (09:00)
[2021-11-01] MEDS: Multivitamins with Iron/Calcium/Folic Acid/Minerals Tab PO SCH (09:00)
[2021-11-01] MEDS: BACLOFEN 10 MG PO SCH ×2 (09:03→21:06)
[2021-11-01] MEDS: OXYBUTYNIN 10 MG PO SCH (09:03)
[2021-11-02] MEDS: Zinc Sulfate 220 MG (50mg elemental Zinc) Cap PO SCH (08:26)
[2021-11-02] MEDS: Cyanocobalamin (Vitamin B12) 250 MCG Tab PO SCH (08:26)
[2021-11-02] MEDS: Multivitamins with Iron/Calcium/Folic Acid/Minerals Tab PO SCH (08:27)
[2021-11-02] MEDS: Cholecalciferol (Vitamin D3) 25 MCG Tab PO SCH (08:27)
[2021-11-02] MEDS: Acetaminophen 325 MG Tab PO SCH ×2 (08:27→20:17)
[2021-11-02] MEDS: Ascorbic Acid 500 MG Tab PO SCH (08:27)
[2021-11-02] MEDS: OXYBUTYNIN 10 MG PO SCH (08:28)
[2021-11-02] MEDS: BACLOFEN 10 MG PO SCH ×2 (08:28→20:17)
[2021-11-03] MEDS: Cholecalciferol (Vitamin D3) 25 MCG Tab PO SCH (08:56)
[2021-11-03] MEDS: Acetaminophen 325 MG Tab PO SCH ×2 (08:56→20:47)
[2021-11-03] MEDS: Zinc Sulfate 220 MG (50mg elemental Zinc) Cap PO SCH (08:57)
[2021-11-03] MEDS: Ascorbic Acid 500 MG Tab PO SCH (08:57)
[2021-11-03] MEDS: Cyanocobalamin (Vitamin B12) 250 MCG Tab PO SCH (08:57)
[2021-11-03] MEDS: BACLOFEN 10 MG PO SCH ×2 (08:58→20:47)
[2021-11-03] MEDS: OXYBUTYNIN 10 MG PO SCH (08:58)
[2021-11-03] MEDS: Multivitamins with Iron/Calcium/Folic Acid/Minerals Tab PO SCH (08:58)
[2021-11-04] MEDS: Cholecalciferol (Vitamin D3) 25 MCG Tab PO SCH (08:51)
[2021-11-04] MEDS: Ascorbic Acid 500 MG Tab PO SCH (08:51)
[2021-11-04] MEDS: Multivitamins with Iron/Calcium/Folic Acid/Minerals Tab PO SCH (08:51)
[2021-11-04] MEDS: Zinc Sulfate 220 MG (50mg elemental Zinc) Cap PO SCH (08:51)
[2021-11-04] MEDS: Acetaminophen 325 MG Tab PO SCH ×2 (08:51→20:50)
[2021-11-04] MEDS: Cyanocobalamin (Vitamin B12) 250 MCG Tab PO SCH (08:51)
[2021-11-04] MEDS: BACLOFEN 10 MG PO SCH ×2 (08:52→20:49)
[2021-11-04] MEDS: OXYBUTYNIN 10 MG PO SCH (08:52)
[2021-11-05] MEDS: Zinc Sulfate 220 MG (50mg elemental Zinc) Cap PO SCH (08:00)
[2021-11-05] MEDS: Multivitamins with Iron/Calcium/Folic Acid/Minerals Tab PO SCH (08:00)
[2021-11-05] MEDS: Cyanocobalamin (Vitamin B12) 250 MCG Tab PO SCH (08:00)
[2021-11-05] MEDS: Ascorbic Acid 500 MG Tab PO SCH (08:00)
[2021-11-05] MEDS: Cholecalciferol (Vitamin D3) 25 MCG Tab PO SCH (08:01)
[2021-11-05] MEDS: Acetaminophen 325 MG Tab PO SCH ×2 (08:01→20:43)
[2021-11-05] MEDS: OXYBUTYNIN 10 MG PO SCH (08:02)
[2021-11-05] MEDS: BACLOFEN 10 MG PO SCH ×2 (08:02→20:43)
[2021-11-06] MEDS: Cholecalciferol (Vitamin D3) 25 MCG Tab PO SCH (08:40)
[2021-11-06] MEDS: Zinc Sulfate 220 MG (50mg elemental Zinc) Cap PO SCH (08:40)
[2021-11-06] MEDS: Multivitamins with Iron/Calcium/Folic Acid/Minerals Tab PO SCH (08:40)
[2021-11-06] MEDS: Cyanocobalamin (Vitamin B12) 250 MCG Tab PO SCH (08:41)
[2021-11-06] MEDS: Ascorbic Acid 500 MG Tab PO SCH (08:41)
[2021-11-06] MEDS: Acetaminophen 325 MG Tab PO SCH ×2 (08:42→21:00)
[2021-11-06] MEDS: BACLOFEN 10 MG PO SCH ×2 (08:44→21:01)
[2021-11-06] MEDS: OXYBUTYNIN 10 MG PO SCH (08:45)
[2021-11-07] MEDS: OXYBUTYNIN 10 MG PO SCH (08:45)
[2021-11-07] MEDS: BACLOFEN 10 MG PO SCH ×2 (08:45→21:09)
[2021-11-07] MEDS: Cholecalciferol (Vitamin D3) 25 MCG Tab PO SCH (08:46)
[2021-11-07] MEDS: Zinc Sulfate 220 MG (50mg elemental Zinc) Cap PO SCH (08:46)
[2021-11-07] MEDS: Acetaminophen 325 MG Tab PO SCH ×2 (08:47→21:09)
[2021-11-07] MEDS: Multivitamins with Iron/Calcium/Folic Acid/Minerals Tab PO SCH (08:49)
[2021-11-07] MEDS: Cyanocobalamin (Vitamin B12) 250 MCG Tab PO SCH (08:49)
[2021-11-07] MEDS: Ascorbic Acid 500 MG Tab PO SCH (08:50)
[2021-11-08] MEDS: OXYBUTYNIN 10 MG PO SCH (08:38)
[2021-11-08] MEDS: BACLOFEN 10 MG PO SCH ×2 (08:38→21:16)
[2021-11-08] MEDS: Acetaminophen 325 MG Tab PO SCH ×2 (08:39→21:17)
[2021-11-08] MEDS: Cyanocobalamin (Vitamin B12) 250 MCG Tab PO SCH (08:39)
[2021-11-08] MEDS: Ascorbic Acid 500 MG Tab PO SCH (08:39)
[2021-11-08] MEDS: Zinc Sulfate 220 MG (50mg elemental Zinc) Cap PO SCH (08:40)
[2021-11-08] MEDS: Multivitamins with Iron/Calcium/Folic Acid/Minerals Tab PO SCH (08:40)
[2021-11-08] MEDS: Cholecalciferol (Vitamin D3) 25 MCG Tab PO SCH (08:40)
[2021-11-09] MEDS: Ascorbic Acid 500 MG Tab PO SCH ×2 (05:43→10:07)
[2021-11-09] MEDS: Zinc Sulfate 220 MG (50mg elemental Zinc) Cap PO SCH ×2 (05:44→10:08)
[2021-11-09] MEDS: Cyanocobalamin (Vitamin B12) 250 MCG Tab PO SCH ×2 (05:47→10:06)
[2021-11-09] MEDS: Cholecalciferol (Vitamin D3) 25 MCG Tab PO SCH ×2 (05:49→10:07)
[2021-11-09] MEDS: Multivitamins with Iron/Calcium/Folic Acid/Minerals Tab PO SCH ×2 (05:49→10:06)
[2021-11-09] MEDS: Acetaminophen 325 MG Tab PO SCH ×3 (05:49→20:35)
[2021-11-09] MEDS: BACLOFEN 10 MG PO SCH ×3 (05:52→20:34)
[2021-11-09] MEDS: OXYBUTYNIN 10 MG PO SCH ×2 (05:54→10:06)
[2021-11-10] MEDS: Cholecalciferol (Vitamin D3) 25 MCG Tab PO SCH (09:13)
[2021-11-10] MEDS: Cyanocobalamin (Vitamin B12) 250 MCG Tab PO SCH (09:14)
[2021-11-10] MEDS: Ascorbic Acid 500 MG Tab PO SCH (09:14)
[2021-11-10] MEDS: Acetaminophen 325 MG Tab PO SCH ×2 (09:15→20:44)
[2021-11-10] MEDS: Multivitamins with Iron/Calcium/Folic Acid/Minerals Tab PO SCH (09:15)
[2021-11-10] MEDS: Zinc Sulfate 220 MG (50mg elemental Zinc) Cap PO SCH (09:15)
[2021-11-10] MEDS: BACLOFEN 10 MG PO SCH ×2 (09:16→20:44)
[2021-11-10] MEDS: OXYBUTYNIN 10 MG PO SCH (15:42)
[2021-11-11] MEDS: BACLOFEN 10 MG PO SCH ×2 (08:07→20:35)
[2021-11-11] MEDS: OXYBUTYNIN 10 MG PO SCH (08:08)
[2021-11-11] MEDS: Cholecalciferol (Vitamin D3) 25 MCG Tab PO SCH (08:08)
[2021-11-11] MEDS: Zinc Sulfate 220 MG (50mg elemental Zinc) Cap PO SCH (08:09)
[2021-11-11] MEDS: Cyanocobalamin (Vitamin B12) 250 MCG Tab PO SCH (08:10)
[2021-11-11] MEDS: Acetaminophen 325 MG Tab PO SCH ×2 (08:10→20:35)
[2021-11-11] MEDS: Ascorbic Acid 500 MG Tab PO SCH (08:10)
[2021-11-11] MEDS: Multivitamins with Iron/Calcium/Folic Acid/Minerals Tab PO SCH (08:12)
[2021-11-12] MEDS: Cholecalciferol (Vitamin D3) 25 MCG Tab PO SCH (08:25)
[2021-11-12] MEDS: Ascorbic Acid 500 MG Tab PO SCH (08:26)
[2021-11-12] MEDS: Cyanocobalamin (Vitamin B12) 250 MCG Tab PO SCH (08:26)
[2021-11-12] MEDS: Multivitamins with Iron/Calcium/Folic Acid/Minerals Tab PO SCH (08:26)
[2021-11-12] MEDS: Zinc Sulfate 220 MG (50mg elemental Zinc) Cap PO SCH (08:26)
[2021-11-12] MEDS: BACLOFEN 10 MG PO SCH ×2 (08:27→20:49)
[2021-11-12] MEDS: Acetaminophen 325 MG Tab PO SCH ×2 (08:27→20:49)
[2021-11-12] MEDS: OXYBUTYNIN 10 MG PO SCH (08:28)
[2021-11-12] MEDS: [UNRECOGNIZED DRUG - OTHER] SUBCUT SCH (09:29)
[2021-11-13] MEDS: OXYBUTYNIN 10 MG PO SCH (08:03)
[2021-11-13] MEDS: Cyanocobalamin (Vitamin B12) 250 MCG Tab PO SCH (08:03)
[2021-11-13] MEDS: Zinc Sulfate 220 MG (50mg elemental Zinc) Cap PO SCH (08:03)
[2021-11-13] MEDS: BACLOFEN 10 MG PO SCH ×2 (08:03→20:21)
[2021-11-13] MEDS: Multivitamins with Iron/Calcium/Folic Acid/Minerals Tab PO SCH (08:04)
[2021-11-13] MEDS: Cholecalciferol (Vitamin D3) 25 MCG Tab PO SCH (08:04)
[2021-11-13] MEDS: Ascorbic Acid 500 MG Tab PO SCH (08:04)
[2021-11-13] MEDS: Acetaminophen 325 MG Tab PO SCH ×2 (08:04→20:21)
[2021-11-14] MEDS: Zinc Sulfate 220 MG (50mg elemental Zinc) Cap PO SCH (08:00)
[2021-11-14] MEDS: Multivitamins with Iron/Calcium/Folic Acid/Minerals Tab PO SCH (08:00)
[2021-11-14] MEDS: Cyanocobalamin (Vitamin B12) 250 MCG Tab PO SCH (08:00)
[2021-11-14] MEDS: Acetaminophen 325 MG Tab PO SCH ×2 (08:00→20:45)
[2021-11-14] MEDS: Cholecalciferol (Vitamin D3) 25 MCG Tab PO SCH (08:00)
[2021-11-14] MEDS: Ascorbic Acid 500 MG Tab PO SCH (08:00)
[2021-11-14] MEDS: OXYBUTYNIN 10 MG PO SCH (08:00)
[2021-11-14] MEDS: BACLOFEN 10 MG PO SCH ×2 (08:00→20:45)
[2021-11-15] MEDS: Zinc Sulfate 220 MG (50mg elemental Zinc) Cap PO SCH (08:49)
[2021-11-15] MEDS: Multivitamins with Iron/Calcium/Folic Acid/Minerals Tab PO SCH (08:49)
[2021-11-15] MEDS: Ascorbic Acid 500 MG Tab PO SCH (08:49)
[2021-11-15] MEDS: Cyanocobalamin (Vitamin B12) 250 MCG Tab PO SCH (08:49)
[2021-11-15] MEDS: Acetaminophen 325 MG Tab PO SCH ×2 (08:50→20:16)
[2021-11-15] MEDS: Cholecalciferol (Vitamin D3) 25 MCG Tab PO SCH (08:50)
[2021-11-15] MEDS: OXYBUTYNIN 10 MG PO SCH (08:51)
[2021-11-15] MEDS: BACLOFEN 10 MG PO SCH ×2 (08:51→20:16)
[2021-11-16] MEDS: Acetaminophen 325 MG Tab PO SCH ×2 (08:41→20:19)
[2021-11-16] MEDS: Zinc Sulfate 220 MG (50mg elemental Zinc) Cap PO SCH (08:42)
[2021-11-16] MEDS: Multivitamins with Iron/Calcium/Folic Acid/Minerals Tab PO SCH (08:42)
[2021-11-16] MEDS: Cholecalciferol (Vitamin D3) 25 MCG Tab PO SCH (08:42)
[2021-11-16] MEDS: Ascorbic Acid 500 MG Tab PO SCH (08:42)
[2021-11-16] MEDS: OXYBUTYNIN 10 MG PO SCH (08:43)
[2021-11-16] MEDS: Cyanocobalamin (Vitamin B12) 250 MCG Tab PO SCH (08:43)
[2021-11-16] MEDS: BACLOFEN 10 MG PO SCH ×2 (08:43→20:20)
[2021-11-17] MEDS: Cyanocobalamin (Vitamin B12) 250 MCG Tab PO SCH (09:05)
[2021-11-17] MEDS: Acetaminophen 325 MG Tab PO SCH ×2 (09:05→20:54)
[2021-11-17] MEDS: Zinc Sulfate 220 MG (50mg elemental Zinc) Cap PO SCH (09:05)
[2021-11-17] MEDS: Multivitamins with Iron/Calcium/Folic Acid/Minerals Tab PO SCH (09:05)
[2021-11-17] MEDS: Ascorbic Acid 500 MG Tab PO SCH (09:05)
[2021-11-17] MEDS: OXYBUTYNIN 10 MG PO SCH (09:06)
[2021-11-17] MEDS: BACLOFEN 10 MG PO SCH ×2 (09:06→20:53)
[2021-11-17] MEDS: Cholecalciferol (Vitamin D3) 25 MCG Tab PO SCH (09:25)
[2021-11-18] MEDS: Acetaminophen 325 MG Tab PO SCH ×2 (09:20→20:35)
[2021-11-18] MEDS: Ascorbic Acid 500 MG Tab PO SCH (09:23)
[2021-11-18] MEDS: Zinc Sulfate 220 MG (50mg elemental Zinc) Cap PO SCH (09:24)
[2021-11-18] MEDS: Multivitamins with Iron/Calcium/Folic Acid/Minerals Tab PO SCH (09:24)
[2021-11-18] MEDS: Cholecalciferol (Vitamin D3) 25 MCG Tab PO SCH (09:25)
[2021-11-18] MEDS: Cyanocobalamin (Vitamin B12) 250 MCG Tab PO SCH (09:25)
[2021-11-18] MEDS: OXYBUTYNIN 10 MG PO SCH (09:26)
[2021-11-18] MEDS: BACLOFEN 10 MG PO SCH ×2 (09:26→20:36)
[2021-11-19] MEDS: BACLOFEN 10 MG PO SCH ×2 (08:28→20:10)
[2021-11-19] MEDS: OXYBUTYNIN 10 MG PO SCH (08:28)
[2021-11-19] MEDS: Ascorbic Acid 500 MG Tab PO SCH (08:29)
[2021-11-19] MEDS: Cyanocobalamin (Vitamin B12) 250 MCG Tab PO SCH (08:29)
[2021-11-19] MEDS: Cholecalciferol (Vitamin D3) 25 MCG Tab PO SCH (08:29)
[2021-11-19] MEDS: Zinc Sulfate 220 MG (50mg elemental Zinc) Cap PO SCH (08:29)
[2021-11-19] MEDS: Multivitamins with Iron/Calcium/Folic Acid/Minerals Tab PO SCH (08:29)
[2021-11-19] MEDS: Acetaminophen 325 MG Tab PO SCH ×2 (08:30→20:10)
[2021-11-20] MEDS: OXYBUTYNIN 10 MG PO SCH (08:27)
[2021-11-20] MEDS: BACLOFEN 10 MG PO SCH ×2 (08:27→20:03)
[2021-11-20] MEDS: Cyanocobalamin (Vitamin B12) 250 MCG Tab PO SCH (08:27)
[2021-11-20] MEDS: Cholecalciferol (Vitamin D3) 25 MCG Tab PO SCH (08:28)
[2021-11-20] MEDS: Zinc Sulfate 220 MG (50mg elemental Zinc) Cap PO SCH (08:28)
[2021-11-20] MEDS: Acetaminophen 325 MG Tab PO SCH ×2 (08:28→20:03)
[2021-11-20] MEDS: Multivitamins with Iron/Calcium/Folic Acid/Minerals Tab PO SCH (08:28)
[2021-11-20] MEDS: Ascorbic Acid 500 MG Tab PO SCH (08:29)
[2021-11-20] MEDS: Acetaminophen 325 MG Tab PO PRN (17:46)
[2021-11-21] MEDS: BACLOFEN 10 MG PO SCH ×2 (08:49→20:00)
[2021-11-21] MEDS: OXYBUTYNIN 10 MG PO SCH (08:49)
[2021-11-21] MEDS: Acetaminophen 325 MG Tab PO SCH ×2 (08:50→19:59)
[2021-11-21] MEDS: Multivitamins with Iron/Calcium/Folic Acid/Minerals Tab PO SCH (08:51)
[2021-11-21] MEDS: Cyanocobalamin (Vitamin B12) 250 MCG Tab PO SCH (08:51)
[2021-11-21] MEDS: Zinc Sulfate 220 MG (50mg elemental Zinc) Cap PO SCH (08:51)
[2021-11-21] MEDS: Ascorbic Acid 500 MG Tab PO SCH (08:51)
[2021-11-21] MEDS: Cholecalciferol (Vitamin D3) 25 MCG Tab PO SCH (08:51)
[2021-11-22] MEDS: Cholecalciferol (Vitamin D3) 25 MCG Tab PO SCH (06:04)
[2021-11-22] MEDS: Multivitamins with Iron/Calcium/Folic Acid/Minerals Tab PO SCH ×2 (06:04→08:00)
[2021-11-22] MEDS: Ascorbic Acid 500 MG Tab PO SCH ×2 (06:05→08:00)
[2021-11-22] MEDS: Cyanocobalamin (Vitamin B12) 250 MCG Tab PO SCH ×2 (06:05→08:00)
[2021-11-22] MEDS: OXYBUTYNIN 10 MG PO SCH ×2 (06:06→08:00)
[2021-11-22] MEDS: Zinc Sulfate 220 MG (50mg elemental Zinc) Cap PO SCH (06:06)
[2021-11-22] MEDS: Acetaminophen 325 MG Tab PO SCH ×3 (06:07→20:29)
[2021-11-22] MEDS: BACLOFEN 10 MG PO SCH ×2 (08:00→20:28)
[2021-11-23] MEDS: BACLOFEN 10 MG PO SCH ×2 (08:10→20:34)
[2021-11-23] MEDS: OXYBUTYNIN 10 MG PO SCH (08:10)
[2021-11-23] MEDS: Zinc Sulfate 220 MG (50mg elemental Zinc) Cap PO SCH (08:13)
[2021-11-23] MEDS: Acetaminophen 325 MG Tab PO SCH ×2 (08:14→20:35)
[2021-11-23] MEDS: Cyanocobalamin (Vitamin B12) 250 MCG Tab PO SCH (08:14)
[2021-11-23] MEDS: Cholecalciferol (Vitamin D3) 25 MCG Tab PO SCH (08:15)
[2021-11-23] MEDS: Ascorbic Acid 500 MG Tab PO SCH (08:15)
[2021-11-23] MEDS: Multivitamins with Iron/Calcium/Folic Acid/Minerals Tab PO SCH (08:15)
[2021-11-23] MEDS ORDERED: EPINEPHrine 1 MG/1 ML Amp IM PRN (20:00)
[2021-11-23] MEDS ORDERED: Famotidine 20 MG/2 ML SDV IVPUSH PRN (20:00)
[2021-11-23] MEDS ORDERED: diphenhydrAMINE 50 MG/ML SDV IVPUSH PRN (20:00)
[2021-11-23] MEDS ORDERED: methylPREDNISolone Sodium Succinate 125 MG/2 ML SDV IVPUSH PRN (20:00)
[2021-11-23] MEDS: Sodium Chloride 0.9% 10 ML Syringe FLUSH SCH (20:57)
[2021-11-24] MEDS: Cholecalciferol (Vitamin D3) 25 MCG Tab PO SCH ×2 (09:27→09:29)
[2021-11-24] MEDS: Zinc Sulfate 220 MG (50mg elemental Zinc) Cap PO SCH ×2 (09:27→09:29)
[2021-11-24] MEDS: Ascorbic Acid 500 MG Tab PO SCH (09:30)
[2021-11-24] MEDS: Acetaminophen 325 MG Tab PO SCH ×2 (09:31→21:22)
[2021-11-24] MEDS: Multivitamins with Iron/Calcium/Folic Acid/Minerals Tab PO SCH (09:31)
[2021-11-24] MEDS: OXYBUTYNIN 10 MG PO SCH (09:34)
[2021-11-24] MEDS: Cyanocobalamin (Vitamin B12) 250 MCG Tab PO SCH (09:50)
[2021-11-24] MEDS: BACLOFEN 10 MG PO SCH ×2 (11:31→21:22)
[2021-11-24] MEDS: Sodium Chloride 0.9% 10 ML Syringe FLUSH SCH (21:17)
[2021-11-25] MEDS: BACLOFEN 10 MG PO SCH ×2 (10:20→21:23)
[2021-11-25] MEDS: OXYBUTYNIN 10 MG PO SCH (10:21)
[2021-11-25] MEDS: Ascorbic Acid 500 MG Tab PO SCH (10:23)
[2021-11-25] MEDS: Cholecalciferol (Vitamin D3) 25 MCG Tab PO SCH (10:23)
[2021-11-25] MEDS: Cyanocobalamin (Vitamin B12) 250 MCG Tab PO SCH (10:23)
[2021-11-25] MEDS: Acetaminophen 325 MG Tab PO SCH ×2 (10:24→21:23)
[2021-11-25] MEDS: Multivitamins with Iron/Calcium/Folic Acid/Minerals Tab PO SCH (10:24)
[2021-11-25] MEDS: Zinc Sulfate 220 MG (50mg elemental Zinc) Cap PO SCH (10:24)
[2021-11-26] MEDS: Cyanocobalamin (Vitamin B12) 250 MCG Tab PO SCH (08:06)
[2021-11-26] MEDS: Multivitamins with Iron/Calcium/Folic Acid/Minerals Tab PO SCH (08:07)
[2021-11-26] MEDS: Ascorbic Acid 500 MG Tab PO SCH (08:07)
[2021-11-26] MEDS: Acetaminophen 325 MG Tab PO SCH ×2 (08:07→20:46)
[2021-11-26] MEDS: Cholecalciferol (Vitamin D3) 25 MCG Tab PO SCH (08:07)
[2021-11-26] MEDS: Zinc Sulfate 220 MG (50mg elemental Zinc) Cap PO SCH (08:07)
[2021-11-26] MEDS: BACLOFEN 10 MG PO SCH ×2 (08:08→20:46)
[2021-11-26] MEDS: OXYBUTYNIN 10 MG PO SCH (08:08)
[2021-11-26] MEDS: Sodium Chloride 0.9% 10 ML Syringe FLUSH SCH (20:48)
[2021-11-27] MEDS: Cholecalciferol (Vitamin D3) 25 MCG Tab PO SCH (08:06)
[2021-11-27] MEDS: BACLOFEN 10 MG PO SCH ×2 (08:06→21:01)
[2021-11-27] MEDS: OXYBUTYNIN 10 MG PO SCH (08:06)
[2021-11-27] MEDS: Cyanocobalamin (Vitamin B12) 250 MCG Tab PO SCH (08:06)
[2021-11-27] MEDS: Multivitamins with Iron/Calcium/Folic Acid/Minerals Tab PO SCH (08:07)
[2021-11-27] MEDS: Ascorbic Acid 500 MG Tab PO SCH (08:07)
[2021-11-27] MEDS: Zinc Sulfate 220 MG (50mg elemental Zinc) Cap PO SCH (08:07)
[2021-11-27] MEDS: Acetaminophen 325 MG Tab PO SCH ×2 (08:07→21:01)
[2021-11-28] MEDS: BACLOFEN 10 MG PO SCH ×2 (08:25→21:18)
[2021-11-28] MEDS: OXYBUTYNIN 10 MG PO SCH (08:25)
[2021-11-28] MEDS: Cholecalciferol (Vitamin D3) 25 MCG Tab PO SCH (08:26)
[2021-11-28] MEDS: Multivitamins with Iron/Calcium/Folic Acid/Minerals Tab PO SCH (08:26)
[2021-11-28] MEDS: Ascorbic Acid 500 MG Tab PO SCH (08:26)
[2021-11-28] MEDS: Zinc Sulfate 220 MG (50mg elemental Zinc) Cap PO SCH (08:27)
[2021-11-28] MEDS: Acetaminophen 325 MG Tab PO SCH ×2 (08:27→21:19)
[2021-11-28] MEDS: Cyanocobalamin (Vitamin B12) 250 MCG Tab PO SCH (08:27)
[2021-11-29] MEDS: BACLOFEN 10 MG PO SCH ×2 (08:24→20:52)
[2021-11-29] MEDS: Ascorbic Acid 500 MG Tab PO SCH (08:24)
[2021-11-29] MEDS: OXYBUTYNIN 10 MG PO SCH (08:24)
[2021-11-29] MEDS: Cyanocobalamin (Vitamin B12) 250 MCG Tab PO SCH (08:24)
[2021-11-29] MEDS: Zinc Sulfate 220 MG (50mg elemental Zinc) Cap PO SCH (08:24)
[2021-11-29] MEDS: Cholecalciferol (Vitamin D3) 25 MCG Tab PO SCH (08:24)
[2021-11-29] MEDS: Acetaminophen 325 MG Tab PO SCH ×2 (08:24→20:52)
[2021-11-29] MEDS: Multivitamins with Iron/Calcium/Folic Acid/Minerals Tab PO SCH (08:25)
[2021-11-30] MEDS: BACLOFEN 10 MG PO SCH ×2 (09:31→21:45)
[2021-11-30] MEDS: Cholecalciferol (Vitamin D3) 25 MCG Tab PO SCH (09:31)
[2021-11-30] MEDS: OXYBUTYNIN 10 MG PO SCH (09:31)
[2021-11-30] MEDS: Acetaminophen 325 MG Tab PO SCH ×2 (09:31→21:45)
[2021-11-30] MEDS: Zinc Sulfate 220 MG (50mg elemental Zinc) Cap PO SCH (09:32)
[2021-11-30] MEDS: Ascorbic Acid 500 MG Tab PO SCH (09:32)
[2021-11-30] MEDS: Multivitamins with Iron/Calcium/Folic Acid/Minerals Tab PO SCH (09:32)
[2021-11-30] MEDS: Cyanocobalamin (Vitamin B12) 250 MCG Tab PO SCH (09:32)
[2021-12-01] MEDS: Cyanocobalamin (Vitamin B12) 250 MCG Tab PO SCH (09:31)
[2021-12-01] MEDS: BACLOFEN 10 MG PO SCH ×2 (09:31→20:11)
[2021-12-01] MEDS: Cholecalciferol (Vitamin D3) 25 MCG Tab PO SCH (09:31)
[2021-12-01] MEDS: OXYBUTYNIN 10 MG PO SCH (09:31)
[2021-12-01] MEDS: Acetaminophen 325 MG Tab PO SCH ×2 (09:32→20:12)
[2021-12-01] MEDS: Multivitamins with Iron/Calcium/Folic Acid/Minerals Tab PO SCH (09:32)
[2021-12-01] MEDS: Ascorbic Acid 500 MG Tab PO SCH (09:32)
[2021-12-01] MEDS: Zinc Sulfate 220 MG (50mg elemental Zinc) Cap PO SCH (09:32)
[2021-12-01] MEDS: Amoxicillin/Clavulanate K 875-125 MG Tab PO SCH (20:12)
[2021-12-02] MEDS: Multivitamins with Iron/Calcium/Folic Acid/Minerals Tab PO SCH (08:16)
[2021-12-02] MEDS: Cholecalciferol (Vitamin D3) 25 MCG Tab PO SCH (08:16)
[2021-12-02] MEDS: Amoxicillin/Clavulanate K 875-125 MG Tab PO SCH ×2 (08:16→19:59)
[2021-12-02] MEDS: Ascorbic Acid 500 MG Tab PO SCH (08:16)
[2021-12-02] MEDS: OXYBUTYNIN 10 MG PO SCH (08:16)
[2021-12-02] MEDS: BACLOFEN 10 MG PO SCH ×2 (08:16→20:01)
[2021-12-02] MEDS: Zinc Sulfate 220 MG (50mg elemental Zinc) Cap PO SCH (08:17)
[2021-12-02] MEDS: Acetaminophen 325 MG Tab PO SCH ×2 (08:17→20:00)
[2021-12-02] MEDS: Cyanocobalamin (Vitamin B12) 250 MCG Tab PO SCH (08:17)
[2021-12-02] MEDS: Acetaminophen 325 MG Tab PO PRN (16:22)
[2021-12-03] MEDS: Cholecalciferol (Vitamin D3) 25 MCG Tab PO SCH (08:06)
[2021-12-03] MEDS: Cyanocobalamin (Vitamin B12) 250 MCG Tab PO SCH (08:07)
[2021-12-03] MEDS: Ascorbic Acid 500 MG Tab PO SCH (08:08)
[2021-12-03] MEDS: Zinc Sulfate 220 MG (50mg elemental Zinc) Cap PO SCH (08:08)
[2021-12-03] MEDS: Amoxicillin/Clavulanate K 875-125 MG Tab PO SCH ×2 (08:08→20:24)
[2021-12-03] MEDS: Multivitamins with Iron/Calcium/Folic Acid/Minerals Tab PO SCH (08:09)
[2021-12-03] MEDS: Acetaminophen 325 MG Tab PO SCH ×2 (08:09→20:23)
[2021-12-03] MEDS: OXYBUTYNIN 10 MG PO SCH (08:10)
[2021-12-03] MEDS: BACLOFEN 10 MG PO SCH ×2 (08:10→20:24)
[2021-12-04] MEDS: BACLOFEN 10 MG PO SCH ×2 (08:52→20:31)
[2021-12-04] MEDS: OXYBUTYNIN 10 MG PO SCH (08:53)
[2021-12-04] MEDS: Amoxicillin/Clavulanate K 875-125 MG Tab PO SCH ×2 (08:53→20:30)
[2021-12-04] MEDS: Acetaminophen 325 MG Tab PO SCH ×2 (08:54→20:31)
[2021-12-04] MEDS: Zinc Sulfate 220 MG (50mg elemental Zinc) Cap PO SCH (08:54)
[2021-12-04] MEDS: Multivitamins with Iron/Calcium/Folic Acid/Minerals Tab PO SCH (08:54)
[2021-12-04] MEDS: Cholecalciferol (Vitamin D3) 25 MCG Tab PO SCH (08:55)
[2021-12-04] MEDS: Ascorbic Acid 500 MG Tab PO SCH (08:56)
[2021-12-04] MEDS: Cyanocobalamin (Vitamin B12) 250 MCG Tab PO SCH (08:56)
[2021-12-05] MEDS: Multivitamins with Iron/Calcium/Folic Acid/Minerals Tab PO SCH (08:11)
[2021-12-05] MEDS: Cholecalciferol (Vitamin D3) 25 MCG Tab PO SCH (08:12)
[2021-12-05] MEDS: Ascorbic Acid 500 MG Tab PO SCH (08:12)
[2021-12-05] MEDS: Acetaminophen 325 MG Tab PO SCH ×2 (08:12→20:06)
[2021-12-05] MEDS: Cyanocobalamin (Vitamin B12) 250 MCG Tab PO SCH (08:12)
[2021-12-05] MEDS: Zinc Sulfate 220 MG (50mg elemental Zinc) Cap PO SCH (08:12)
[2021-12-05] MEDS: Amoxicillin/Clavulanate K 875-125 MG Tab PO SCH ×2 (08:12→20:05)
[2021-12-05] MEDS: OXYBUTYNIN 10 MG PO SCH (08:13)
[2021-12-05] MEDS: BACLOFEN 10 MG PO SCH ×2 (08:13→20:05)
[2021-12-06] MEDS: Multivitamins with Iron/Calcium/Folic Acid/Minerals Tab PO SCH (08:54)
[2021-12-06] MEDS: BACLOFEN 10 MG PO SCH ×2 (08:54→20:11)
[2021-12-06] MEDS: Acetaminophen 325 MG Tab PO SCH ×2 (08:54→20:10)
[2021-12-06] MEDS: OXYBUTYNIN 10 MG PO SCH (08:54)
[2021-12-06] MEDS: Amoxicillin/Clavulanate K 875-125 MG Tab PO SCH ×2 (08:55→20:11)
[2021-12-06] MEDS: Cyanocobalamin (Vitamin B12) 250 MCG Tab PO SCH (08:55)
[2021-12-06] MEDS: Ascorbic Acid 500 MG Tab PO SCH (08:55)
[2021-12-06] MEDS: Cholecalciferol (Vitamin D3) 25 MCG Tab PO SCH (08:55)
[2021-12-06] MEDS: Zinc Sulfate 220 MG (50mg elemental Zinc) Cap PO SCH (08:56)
[2021-12-07] MEDS: OXYBUTYNIN 10 MG PO SCH (08:13)
[2021-12-07] MEDS: BACLOFEN 10 MG PO SCH ×2 (08:13→20:07)
[2021-12-07] MEDS: Cholecalciferol (Vitamin D3) 25 MCG Tab PO SCH (08:14)
[2021-12-07] MEDS: Cyanocobalamin (Vitamin B12) 250 MCG Tab PO SCH (08:15)
[2021-12-07] MEDS: Multivitamins with Iron/Calcium/Folic Acid/Minerals Tab PO SCH (08:15)
[2021-12-07] MEDS: Zinc Sulfate 220 MG (50mg elemental Zinc) Cap PO SCH (08:15)
[2021-12-07] MEDS: Acetaminophen 325 MG Tab PO SCH ×2 (08:15→20:07)
[2021-12-07] MEDS: Ascorbic Acid 500 MG Tab PO SCH (08:15)
[2021-12-08] MEDS: BACLOFEN 10 MG PO SCH ×2 (08:14→20:01)
[2021-12-08] MEDS: OXYBUTYNIN 10 MG PO SCH (08:14)
[2021-12-08] MEDS: Cyanocobalamin (Vitamin B12) 250 MCG Tab PO SCH (08:15)
[2021-12-08] MEDS: Zinc Sulfate 220 MG (50mg elemental Zinc) Cap PO SCH (08:15)
[2021-12-08] MEDS: Ascorbic Acid 500 MG Tab PO SCH (08:15)
[2021-12-08] MEDS: Acetaminophen 325 MG Tab PO SCH ×2 (08:15→20:01)
[2021-12-08] MEDS: Cholecalciferol (Vitamin D3) 25 MCG Tab PO SCH (08:16)
[2021-12-08] MEDS: Multivitamins with Iron/Calcium/Folic Acid/Minerals Tab PO SCH (08:16)
[2021-12-09] MEDS: BACLOFEN 10 MG PO SCH ×2 (08:28→20:12)
[2021-12-09] MEDS: OXYBUTYNIN 10 MG PO SCH (08:28)
[2021-12-09] MEDS: Zinc Sulfate 220 MG (50mg elemental Zinc) Cap PO SCH (08:29)
[2021-12-09] MEDS: Acetaminophen 325 MG Tab PO SCH ×2 (08:29→20:12)
[2021-12-09] MEDS: Cholecalciferol (Vitamin D3) 25 MCG Tab PO SCH (08:29)
[2021-12-09] MEDS: Cyanocobalamin (Vitamin B12) 250 MCG Tab PO SCH (08:30)
[2021-12-09] MEDS: Multivitamins with Iron/Calcium/Folic Acid/Minerals Tab PO SCH (08:30)
[2021-12-09] MEDS: Ascorbic Acid 500 MG Tab PO SCH (08:30)
[2021-12-10] MEDS: Cyanocobalamin (Vitamin B12) 250 MCG Tab PO SCH (08:34)
[2021-12-10] MEDS: Multivitamins with Iron/Calcium/Folic Acid/Minerals Tab PO SCH (08:35)
[2021-12-10] MEDS: Acetaminophen 325 MG Tab PO SCH ×2 (08:35→20:58)
[2021-12-10] MEDS: Ascorbic Acid 500 MG Tab PO SCH (08:35)
[2021-12-10] MEDS: Cholecalciferol (Vitamin D3) 25 MCG Tab PO SCH (08:35)
[2021-12-10] MEDS: Zinc Sulfate 220 MG (50mg elemental Zinc) Cap PO SCH (08:35)
[2021-12-10] MEDS: BACLOFEN 10 MG PO SCH ×2 (08:39→20:58)
[2021-12-10] MEDS: OXYBUTYNIN 10 MG PO SCH (08:40)
[2021-12-10] MEDS: [UNRECOGNIZED DRUG - OTHER] SUBCUT SCH (09:18)
[2021-12-11] MEDS: BACLOFEN 10 MG PO SCH ×2 (08:09→20:00)
[2021-12-11] MEDS: OXYBUTYNIN 10 MG PO SCH (08:10)
[2021-12-11] MEDS: Acetaminophen 325 MG Tab PO SCH ×2 (08:10→20:00)
[2021-12-11] MEDS: Zinc Sulfate 220 MG (50mg elemental Zinc) Cap PO SCH (08:11)
[2021-12-11] MEDS: Multivitamins with Iron/Calcium/Folic Acid/Minerals Tab PO SCH (08:11)
[2021-12-11] MEDS: Cholecalciferol (Vitamin D3) 25 MCG Tab PO SCH (08:11)
[2021-12-11] MEDS: Cyanocobalamin (Vitamin B12) 250 MCG Tab PO SCH (08:11)
[2021-12-11] MEDS: Ascorbic Acid 500 MG Tab PO SCH (08:11)
[2021-12-12] MEDS: Cyanocobalamin (Vitamin B12) 250 MCG Tab PO SCH (08:34)
[2021-12-12] MEDS: Cholecalciferol (Vitamin D3) 25 MCG Tab PO SCH (08:34)
[2021-12-12] MEDS: Acetaminophen 325 MG Tab PO SCH ×2 (08:34→21:45)
[2021-12-12] MEDS: Multivitamins with Iron/Calcium/Folic Acid/Minerals Tab PO SCH (08:34)
[2021-12-12] MEDS: Zinc Sulfate 220 MG (50mg elemental Zinc) Cap PO SCH (08:34)
[2021-12-12] MEDS: OXYBUTYNIN 10 MG PO SCH (08:35)
[2021-12-12] MEDS: BACLOFEN 10 MG PO SCH ×2 (08:35→21:44)
[2021-12-12] MEDS: Ascorbic Acid 500 MG Tab PO SCH (08:35)
[2021-12-13] MEDS: Cholecalciferol (Vitamin D3) 25 MCG Tab PO SCH (08:08)
[2021-12-13] MEDS: Acetaminophen 325 MG Tab PO SCH ×3 (08:10→20:05)
[2021-12-13] MEDS: Multivitamins with Iron/Calcium/Folic Acid/Minerals Tab PO SCH (08:12)
[2021-12-13] MEDS: Ascorbic Acid 500 MG Tab PO SCH (08:12)
[2021-12-13] MEDS: Cyanocobalamin (Vitamin B12) 250 MCG Tab PO SCH (08:12)
[2021-12-13] MEDS: Zinc Sulfate 220 MG (50mg elemental Zinc) Cap PO SCH (08:12)
[2021-12-13] MEDS: BACLOFEN 10 MG PO SCH ×3 (08:13→20:05)
[2021-12-13] MEDS: OXYBUTYNIN 10 MG PO SCH (08:14)
[2021-12-14] MEDS: OXYBUTYNIN 10 MG PO SCH (08:27)
[2021-12-14] MEDS: BACLOFEN 10 MG PO SCH ×2 (08:27→21:39)
[2021-12-14] MEDS: Cyanocobalamin (Vitamin B12) 250 MCG Tab PO SCH (08:27)
[2021-12-14] MEDS: Ascorbic Acid 500 MG Tab PO SCH (08:28)
[2021-12-14] MEDS: Multivitamins with Iron/Calcium/Folic Acid/Minerals Tab PO SCH (08:28)
[2021-12-14] MEDS: Acetaminophen 325 MG Tab PO SCH ×2 (08:28→21:39)
[2021-12-14] MEDS: Zinc Sulfate 220 MG (50mg elemental Zinc) Cap PO SCH (08:28)
[2021-12-14] MEDS: Cholecalciferol (Vitamin D3) 25 MCG Tab PO SCH (08:28)
[2021-12-15] MEDS: OXYBUTYNIN 10 MG PO SCH (09:28)
[2021-12-15] MEDS: BACLOFEN 10 MG PO SCH (09:28)
[2021-12-15] MEDS: Acetaminophen 325 MG Tab PO SCH (09:28)
[2021-12-15] MEDS: Cholecalciferol (Vitamin D3) 25 MCG Tab PO SCH (09:31)
[2021-12-15] MEDS: Multivitamins with Iron/Calcium/Folic Acid/Minerals Tab PO SCH (09:32)
[2021-12-15] MEDS: Ascorbic Acid 500 MG Tab PO SCH (09:32)
[2021-12-15] MEDS: Zinc Sulfate 220 MG (50mg elemental Zinc) Cap PO SCH (09:32)
[2021-12-15] MEDS: Cyanocobalamin (Vitamin B12) 250 MCG Tab PO SCH (09:32)
[2021-12-15 12:35] VITALS: BP 116/72; PULSE 86
== END 2021-12-15 10:35 | DRG 539 ==
LOC: VM.MS 10-14 13:47
PROVIDERS: ADMIT Family Medicine; ATTEND Family Medicine
DX: M46.28 Osteomyelitis of vertebra, sacral and sacrococcygeal region (principal); U07.1 COVID-19; J12.82 Pneumonia due to coronavirus disease 2019; Z68.41 Body mass index [BMI] 40.0-44.9, adult; G35 Multiple sclerosis; N31.9 Neuromuscular dysfunction of bladder, unspecified; L89.159 Pressure ulcer of sacral region, unspecified stage; J32.4 Chronic pansinusitis; Z66 Do not resuscitate; K59.00 Constipation, unspecified; I10 Essential (primary) hypertension; E66.01 Morbid (severe) obesity due to excess calories; F43.21 Adjustment disorder with depressed mood; Z93.9 Artificial opening status, unspecified; Z88.1 Allergy status to other antibiotic agents; Z91.011 Allergy to milk products; Z79.899 Other long term (current) drug therapy
CPT/HCPCS: 97110-GP; 97112-GP; 97161-GP; A9270-GY; J3490; Q0222; U0002